=== PATIENT | female | born 1975 | race Caucasian/White ===

== ENCOUNTER 2016-06-07 22:45 | Inpatient (IN) | payer SELFPAY ==
[~2016-06-07] VITALS: Ht 167.6 cm; Wt 112.5 kg
--- NOTE | 2016-06-07 23:16 | PD ---
HPI Chief Complaint: lightheaded, weakness Time Seen by Provider: 23:16 Travel History International Travel<30 days: No Contact w/Intl Traveler<30days: No Traveled to known affect area: No History of Present Illness HPI 40-year-old female came to the emergency room by EMS for weakness, lightheadedness since yesterday. Patient is homeless and was found laying on the sidewalk by the police. Upon asking she mentioned about her complaints to him. The financial sales advisor called ambulance. Patient is not talking and writing on a piece of paper her answers when I asked a question. She says that she is doing this in order to give her voice rest. She says she has been feeling a pounding sensation in her chest as well. Her vital signs upon arrival were within normal limits. [facility] Past Medical History Narrative Medical List of her past medical, surgical, social and family history was reviewed from the nursing note. Social History Tobacco Use: Yes Allergies-Medications (Allergen,Severity, Reaction): Coded Allergies: No Known Allergies (Unverified , 06/07/16) Comments No known drug allergies. Reported Meds & Prescriptions Reported Meds & Active Scripts Active No Active Prescriptions or Reported Medications Narrative Medication List of her home medications reviewed from the nursing note. Review of Systems Except as stated in HPI: all other systems reviewed are Neg Physical Exam Narrative GENERAL: Awake, alert, extremely poor hygiene, disheveled SKIN: Focused skin assessment warm/dry. Extremely poor skin hygiene HEAD: Atraumatic. Normocephalic. EYES: Pupils equal and round. No scleral icterus. No injection or drainage. ENT: No nasal bleeding or discharge. Mucous membranes pink and moist. NECK: Trachea midline. No JVD. CARDIOVASCULAR: Regular rate and rhythm. No murmur appreciated. RESPIRATORY: No accessory muscle use. Clear to auscultation. Breath sounds equal bilaterally. GASTROINTESTINAL: Abdomen soft, non-tender, nondistended. Hepatic and splenic margins not palpable. MUSCULOSKELETAL: No obvious deformities. No clubbing. No cyanosis. No edema. NEUROLOGICAL: Awake and alert. No obvious cranial nerve deficits. Motor grossly within normal limits. Chooses to be non verbal. PSYCHIATRIC: Appropriate mood and affect; insight and judgment normal. Data Data Last Documented VS Vital Signs Date Time Temp Pulse Resp B/P Pulse Ox O2 Delivery O2 Flow Rate FiO2 06/08/16 04:19 81 15 128/79 95 Room Air 06/07/16 23:34 98.4 Orders Complete Blood Count With Diff (06/08/16 00:08) Basic Metabolic Panel (Bmp) (06/08/16 00:08) Urinalysis - C+S If Indicated (06/08/16 00:08) Troponin I (06/08/16 00:08) Electrocardiogram (06/08/16 ) Band Presser / Telemetry CHAPITO.Q8H (06/08/16 00:08) Sodium Chlorid 0.9% 500 Ml Inj (Ns 500 M (06/08/16 00:15) Orthostatic Vital Signs (06/08/16 00:08) Chest, Single Ap (06/08/16 ) Ct Brain W/O Iv Contrast(Rout) (06/08/16 ) Ct Pulmonary Angiogram (06/08/16 ) Iohexol 350 Inj (Omnipaque 350 Inj) (06/08/16 03:55) Heparin Infusion CHAPITO.Q1H (06/08/16 04:14) Heparin Inj (Heparin Inj) (06/08/16 04:15) Heparin Inj (Heparin Inj) (06/08/16 10:15) Heparin Inj (Heparin Inj) (06/08/16 10:15) Heparin-D5w Inj (Heparin-D5w Inj) (06/08/16 04:15) Act Partial Throm Time (Ptt) (06/08/16 04:14) Prothrombin Time / Inr (Pt) (06/08/16 04:14) Cbc No Diff, Includes Plts (06/08/16 04:14) Cbc No Diff, Includes Plts (06/11/16 06:00) Act Partial Throm Time (Ptt) (06/08/16 11:14) Admit Order (Ed Use Only) (06/08/16 04:40) Labs Laboratory Tests Test 06/08/16 06/08/16 06/08/16 00:50 01:38 03:20 Sodium Level 140 MEQ/L Potassium Level 4.2 MEQ/L Chloride Level 110 MEQ/L Carbon Dioxide Level 23.2 MEQ/L Anion Gap 7 MEQ/L Blood Urea Nitrogen 15 MG/DL Creatinine 0.88 MG/DL Estimat Glomerular Filtration 71 ML/MIN Rate Random Glucose 98 MG/DL Calcium Level 8.8 MG/DL Troponin I 0.93 NG/ML White Blood Count 13.2 TH/MM3 Red Blood Count 4.39 MIL/MM3 Hemoglobin 12.3 GM/DL Hematocrit 37.9 % Mean Corpuscular Volume 86.3 FL Mean Corpuscular Hemoglobin 28.1 PG Mean Corpuscular Hemoglobin 32.6 % Concent Red Cell Distribution Width 14.1 % Platelet Count 291 TH/MM3 Mean Platelet Volume 8.4 FL Neutrophils (%) (Auto) 64.9 % Lymphocytes (%) (Auto) 25.7 % Monocytes (%) (Auto) 4.7 % Eosinophils (%) (Auto) 3.9 % Basophils (%) (Auto) 0.8 % Neutrophils # (Auto) 8.5 TH/MM3 Lymphocytes # (Auto) 3.4 TH/MM3 Monocytes # (Auto) 0.6 TH/MM3 Eosinophils # (Auto) 0.5 TH/MM3 Basophils # (Auto) 0.1 TH/MM3 CBC Comment DIFF FINAL Differential Comment Prothrombin Time 10.3 SEC Prothromb Time International 0.9 RATIO Ratio Activated Partial 26.7 SEC Thromboplast Time MDM Medical Decision Making Medical Screen Exam Complete: Yes Emergency Medical Condition: Yes Medical Record Reviewed: Yes Interpretation(s) Twelve-lead EKG was reviewed by me. Normal sinus rhythm, normal axis, nonspecific ST-T wave changes. Heart rate is 83 bpm. Differential Diagnosis Dehydration, electrolyte abnormality, ACS Narrative Course 3 AM blood test results are back and shows elevated troponin. Patient never complained of any chest pain. I've asked for orthostatic vital signs and the nurse let me know that patient got tachypnea when she stood up. Chest x-rays within normal limits however. I've ordered a CAT scan of her head as well as a pulmonary angiogram to rule out PE. Awaiting for the CAT scan to be done and resulted. 4:[address] scan is back and is read as multiple bilateral PE with saddle embolus. Patient has been started on heparin bolus and drip. Head CT is within normal limit. Given these findings patient should be admitted to the ICU. Awaiting for the payment analyst to call back. Critical Care Narrative Aggregate critical care time was 60 minutes. Time to perform other separately billable procedures was not included in the critical care time. My time did not include minutes spent treating any other patients simultaneously or on activities that did not directly contribute to the patient's treatment. The services I provided to this patient were to treat and/or prevent clinically significant deterioration that could result in: Saddle PE, heparin bolus and drip I provided critical care services requiring my management, as noted below: Chart data review, documentation time, medication orders and management, vital sign assessments/reviewing monitor data, ordering and reviewing lab tests, ordering and interpreting/reviewing x-rays and diagnostic studies, care of the patient and discussion of the patient with the admitting physicians. Procedures EKG Prior to Arrival: No Diagnosis Primary Impression: Saddle embolus of pulmonary artery Qualified Code: I26.92 - Acute saddle pulmonary embolism without acute cor pulmonale Admitting Information Admitting Physician Requests: Admit Scripts No Active Prescriptions or Reported Meds Christopher Baca MD Jun 07, 2016 23:16
[2016-06-07 23:34] VITALS: BP 139/87; PULSE 90; RESP 15; TEMP 98.4; O2SAT 97
[2016-06-08] VITALS (15 sets, daily range): BP systolic 110–129; BP diastolic 55–81; PULSE 72–84; RESP 15–26; TEMP 98.2–98.6; O2SAT 92–99
[2016-06-08] MEDS ORDERED: SODIUM CHLORID 0.9% 500 ML INJ 500 ML IV ONE (00:15)
[2016-06-08 01:47] LABS: AUTOMATED NEUTROPHIL # 8.5 TH/MM3 (1.8-7.7); BASOPHIL # 0.1 TH/MM3 (0-0.2); BASOPHIL % 0.8 % (0.0-2.0); EOSINOPHIL # 0.5 TH/MM3 (0-0.4); EOSINOPHIL % 3.9 % (0.0-4.0); HEMATOCRIT 37.9 % (35.0-46.0); HEMO FLAGS DIFF FINAL; LYMPH % 25.7 % (9.0-44.0); LYMPHOCYTE # 3.4 TH/MM3 (1.0-4.8); MEAN CELL VOLUME 86.3 FL (80.0-100.0); MEAN CORPUSCULAR HEMOGLOBIN 28.1 PG (27.0-34.0); MEAN CORPUSCULAR HGB CONC 32.6 % (32.0-36.0); MONO % 4.7 % (0.0-8.0); NEUT % 64.9 % (16.0-70.0); PLATELET COUNT 291 TH/MM3 (150-450); RED BLOOD COUNT 4.39 MIL/MM3 (4.00-5.30); RED CELL DISTRIBUTION WIDTH 14.1 % (11.6-17.2); WHITE BLOOD COUNT 13.2 TH/MM3 (4.0-11.0)
[2016-06-08 01:54] LABS: BICARBONATE 23.2 MEQ/L (21.0-32.0)
[2016-06-08 01:55] LABS: POTASSIUM 4.2 MEQ/L (3.5-5.1)
--- NOTE | 2016-06-08 02:16 | RADRPT ---
EXAM DATE/TIME: 06/08/2016 02:04 [facility] COMPARISON: No previous studies available for comparison. INDICATIONS : Chest pain. MEDICAL HISTORY : None. SURGICAL HISTORY : None. ENCOUNTER: Initial ACUITY: 1 day PAIN SCORE: 0/10 LOCATION: Bilateral chest FINDINGS: A single view of the chest demonstrates the lungs to be symmetrically aerated without evidence of mas s, infiltrate or effusion. The cardiomediastinal contours are unremarkable. Osseous structures are intact. CONCLUSION: No acute disease. Loc Ram MD on June 08, 2016 at 2:14 Board Certified Radiologist. This report was verified electronically.
[2016-06-08] MEDS ORDERED: IOHEXOL 350 MG/ML 10 ML VIAL (for RAD DIAG) IV ONE (03:55)
--- NOTE | 2016-06-08 03:57 | RADRPT ---
EXAM DATE/TIME: 06/08/2016 03:31 [facility] COMPARISON: CHEST SINGLE AP, June 08, 2016, 2:04. INDICATIONS : Dizziness. RADIATION DOSE: 64.32 CTDIvol (mGy) MEDICAL HISTORY : None SURGICAL HISTORY : None. ENCOUNTER: Initial ACUITY: 1 day PAIN SCALE: 0/10 LOCATION: cranial TECHNIQUE: Multiple contiguous axial images were obtained of the head. Using automated exposure control and adj ustment of the mA and/or kV according to patient size, radiation dose was kept as low as reasonably a chievable to obtain optimal diagnostic quality images. FINDINGS: CEREBRUM: The ventricles are normal for age. No evidence of midline shift, mass lesion, hemorrhage or acute in farction. No extra-axial fluid collections are seen. POSTERIOR FOSSA: The cerebellum and brainstem are intact. The 4th ventricle is midline. The cerebellopontine angle i s unremarkable. EXTRACRANIAL: The visualized portion of the orbits is intact. SKULL: The calvaria is intact. No evidence of skull fracture. CONCLUSION: Normal examination for a patient of this age. Loc Ram MD on June 08, 2016 at 3:54 Board Certified Radiologist. This report was verified electronically.
--- NOTE | 2016-06-08 04:06 | RADRPT ---
EXAM DATE/TIME: 06/08/2016 03:35 [facility] COMPARISON: No previous studies available for comparison. INDICATIONS : Syncope. Evaluate for emboli. IV CONTRAST: 75 cc Omnipaque 350 (iohexol) IV RADIATION DOSE: 23.32 CTDIvol (mGy) MEDICAL HISTORY : None SURGICAL HISTORY : None. ENCOUNTER: Initial ACUITY: 1 day PAIN SCALE: 0/10 LOCATION: chest TECHNIQUE: Volumetric scanning of the chest was performed using a pulmonary embolism protocol MIP images were re constructed. Using automated exposure control and adjustment of the mA and/or kV according to patien t size, radiation dose was kept as low as reasonably achievable to obtain optimal diagnostic quality images. FINDINGS: PULMONARY ARTERIES: There are multiple filling defects in the pulmonary arteries bilaterally. There is also a prominent e mbolus at the bifurcation of the right and left pulmonary arteries characteristic for a saddle embolu s. LUNGS: There is no consolidation or pneumothorax . No concerning pulmonary nodule is visualized. PLEURAE: There is no pleural thickening or pleural effusion. MEDIASTINUM: There is good visualization of the great vessels of the middle mediastinum. No evidence of mediastin al or hilar adenopathy/mass. MUSCULOSKELETAL: Within normal limits for patient age. MISCELLANEOUS: The visualized upper abdominal organs demonstrate no acute abnormality. CONCLUSION: 1. Diffuse bilateral pulmonary emboli with a prominent saddle embolus at the bifurcation of the main right and left pulmonary arteries. 2. No acute pulmonary infiltrates. Loc Ram MD on June 08, 2016 at 4:01 Board Certified Radiologist. This report was verified electronically.
[2016-06-08] MEDS ORDERED: HEPARIN SODIUM - IV 10,000 UNITS/10 ML VIAL IV ONE (04:15)
[2016-06-08] MEDS: HEPARIN-D5W INJ 250 ML IV SCH ×2 (04:30→23:53)
[2016-06-08 04:53] LABS: APTT (PATIENT) 26.7 SEC (24.3-30.1); INTERNATIONAL NORMALIZED RATIO 0.9 RATIO; PROTHROMBIN TIME - PATIENT 10.3 SEC (9.8-11.6)
--- NOTE | 2016-06-08 05:11 | HHI.HP ---
HPI Service Critical Care Medicine Primary Care Physician Unknown Admission Diagnosis saddle PE Diagnosis: Chief Complaint: Chest pain, SOB Travel History International Travel<30 Days: No Contact w/Intl Traveler <30 Da: No Traveled to Known Affected Are: No History of Present Illness 40 y/o homeless woman found lying on sidewalk, complained to police of pounding in her chest. Brought to ED where CTA revealed saddle pulmonary embolus with RV dilation and elevated troponin, postural hypotension with dizziness. Thrombus has clearly effected cardiac output. Patient will not talk because she is resting her voice. She will nod her head and write notes. She denies any recent surgery or head injury. Review of Systems ROS Chest pain. SOB. Past Family Social History Allergies: Coded Allergies: No Known Allergies (Unverified , 06/07/16) Physical Exam Vital Signs Vital Signs Date Time Temp Pulse Resp B/P Pulse Ox O2 Delivery O2 Flow Rate FiO2 06/08/16 04:19 81 15 128/79 95 Room Air 06/08/16 01:29 81 17 127/65 87 15 121/76 91 25 118/63 06/07/16 23:43 90 15 97 Room Air 06/07/16 23:34 98.4 90 15 139/87 97 Physical Exam Disheveled woman with very poor hygiene and general foul odor. Head: Atraumatic. Neck: Supple, airway widely patent. Lungs: Clear, tachypnea present. No wheezes. Heart: RRR, JVD. Abdomen: Soft, nontender, no guarding. Extremities: Tepid, perfused. Neuro: Responds to questions with head nod. Moves 4 limbs to command Laboratory Laboratory Tests Test 06/08/16 06/08/16 06/08/16 00:50 01:38 03:20 Sodium Level 140 Potassium Level 4.2 Chloride Level 110 Carbon Dioxide Level 23.2 Anion Gap 7 Blood Urea Nitrogen 15 Creatinine 0.88 Estimat Glomerular Filtration 71 Rate Random Glucose 98 Calcium Level 8.8 Troponin I 0.93 White Blood Count 13.2 Red Blood Count 4.39 Hemoglobin 12.3 Hematocrit 37.9 Mean Corpuscular Volume 86.3 Mean Corpuscular Hemoglobin 28.1 Mean Corpuscular Hemoglobin 32.6 Concent Red Cell Distribution Width 14.1 Platelet Count 291 Mean Platelet Volume 8.4 Neutrophils (%) (Auto) 64.9 Lymphocytes (%) (Auto) 25.7 Monocytes (%) (Auto) 4.7 Eosinophils (%) (Auto) 3.9 Basophils (%) (Auto) 0.8 Neutrophils # (Auto) 8.5 Lymphocytes # (Auto) 3.4 Monocytes # (Auto) 0.6 Eosinophils # (Auto) 0.5 Basophils # (Auto) 0.1 CBC Comment DIFF FINAL Differential Comment Prothrombin Time 10.3 Prothromb Time International 0.9 Ratio Activated Partial 26.7 Thromboplast Time Result Diagram: 06/08/16 0138 06/08/16 0050 Assessment and Plan Assessment and Plan Assessment: 1. Submassive pulmonary embolism. RV dilation. 2. Poor hygiene. Plan: 1. Heparin infusion. 2. Cardiac ECHO. 3. Protonix. 4. No SCDs. 5. LE ultrasound 6. [facility] - Start heparin drip at no more than 1000 units/hr. tPA 50 mg iv. Heparin increased as necessary to keep PTT 50 -80 three hours after tPA injected. (If you can get informed consent). Overall impression: Critically ill with acute submassive pulmonary embolism and RV strain. Long-term prognosis is improved with 50 mg dose tPA if we can get consent. Critical care 48 mins Neri Ashraf MD Jun 08, 2016 05:11
[2016-06-08] MEDS ORDERED: CHLORHEXIDINE GLUCONATE 2 % 1 PACK (2 CLOTHS) TOP PRN (05:15)
[2016-06-08] MEDS ORDERED: RESP: ALBUTEROL 2.5 MG/IPRATROPIUM 0.5 MG NEB (PRN) INH (05:15)
[2016-06-08] MEDS ORDERED: ONDANSETRON HCL 4 MG/2 ML VIAL IV PRN (05:15)
[2016-06-08] MEDS ORDERED: ACETAMINOPHEN 325 MG TAB PO PRN (05:15)
[2016-06-08] MEDS ORDERED: MISCELLANEOUS NURSING INFORMATION XX SCH (05:15)
[2016-06-08 05:16] LABS: HEMATOCRIT 36.1 % (35.0-46.0); MEAN CELL VOLUME 85.3 FL (80.0-100.0); MEAN CORPUSCULAR HEMOGLOBIN 28.9 PG (27.0-34.0); MEAN CORPUSCULAR HGB CONC 33.9 % (32.0-36.0); PLATELET COUNT 281 TH/MM3 (150-450); RED BLOOD COUNT 4.23 MIL/MM3 (4.00-5.30); RED CELL DISTRIBUTION WIDTH 14.2 % (11.6-17.2); REVIEW FLAG FINAL
[2016-06-08] MEDS: SODIUM CHLOR 0.9% 1000 ML INJ 1,000 ML IV SCH ×3 (05:44→21:02)
[2016-06-08 09:00] LABS: BACTERIA, URINE MOD /hpf; BLOOD, URINE MOD (NEG); COMMENT (UR) CULTURE INDICATED; CULTURE IF INDICATED CULTURE INDICATED; GLUCOSE,URINE NEG (NEG); KETONE, URINE NEG (NEG); MUCUS URINE FEW /lpf (OCC); NITRITE,URINE NEG (NEG); SQUAMOUS EPITHELIAL CELL URINE 1 /hpf (0-5); URINE COLOR LIGHT-YELLOW (YELLW/STRAW)
[2016-06-08] MEDS: PANTOPRAZOLE SOD 40 MG DELAYED RELEASE TAB PO SCH (09:00)
[2016-06-08] MEDS: LACTULOSE SYRUP 20 GM/30 ML CUP PO SCH (09:00)
[2016-06-08] MEDS ORDERED: HEPARIN SODIUM - IV 10,000 UNITS/10 ML VIAL IV PRN ×2 (10:15)
--- NOTE | 2016-06-08 11:15 | HHI.CCPN ---
Subjective Remarks/Hospital Course 40 y/o homeless woman found lying on sidewalk, complained to police of pounding in her chest. Brought to ED where CTA revealed saddle pulmonary embolus with RV dilation and elevated troponin, postural hypotension with dizziness. Thrombus has clearly effected cardiac output. Patient will not talk because she is resting her voice. She will nod her head and write notes. She denies any recent surgery or head injury. Subjective 06/08: Extensive discussion with patient this morning. The advantages, risk and benefits of initiation of moderate dose TPA therapy was provided to the patient. Neuropsychologist Dr. Rosalio Jacinto was consulted for evaluation and assessment of cognitive abilities for the patient to understand medical status and risk and benefits of treatment. Upon evaluation by Dr. 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 Assessment also included the fact that the patient is alert and oriented and cognitively receptive to understand all questions and make full decisions regarding health care matters. TPA pamphlets, and publications were provided in written form to patient, additional discussions were provided to patient regarding evidenced base application of TPA was submassive PE and outcome studies regarding morbidity or mortality. The patient has decided to just continue with heparin protocol, and refuses/declines treatment of TPA therapy. Objective Vital Signs Date Time Temp Pulse Resp B/P Pulse Ox O2 Delivery O2 Flow Rate FiO2 06/08/16 08:18 92 Nasal Cannula 2.00 06/08/16 06:00 81 06/08/16 05:50 17 118/81 06/07/16 23:34 98.4 Result Diagram: 06/08/16 0514 06/08/16 0050 Objective Remarks Disheveled woman with very poor hygiene and general foul odor. Head: Atraumatic. Neck: Supple, airway widely patent. Lungs: Clear, tachypnea present. No wheezes. Heart: RRR, JVD. Abdomen: Soft, nontender, no guarding. Extremities: Tepid, perfused. Skin: Supple lesions inquiring peroneal and rectal area, resembling insect bites , possible scabies in multiple stages of healing Neuro: Responds to questions with head nod. Moves 4 limbs to command Urinary Catheter: No Vascular Central Line Catheter: No A/P Assessment and Plan Assessment: 1. Submassive pulmonary embolism. RV dilation. 2. Poor hygiene. Plan: 1. Heparin infusion. 2. Cardiac ECHO. 3. Protonix. 4. No SCDs. 5. LE ultrasound 6. Consider [facility] trial protocol , the patient has refused- Start heparin drip at no more than 1000 units/hr. tPA 50 mg iv. Heparin increased as necessary to keep PTT 50 -80 three hours after tPA injected. (If you can get informed consent ). Overall impression: Critically ill with acute submassive pulmonary embolism and RV strain. Continue heparin protocol This patient remains critically ill with one or more organ systems which are or may become a threat to life. I have spent in excess of 50 minutes discontinuously in the care and management of this patient. This time is exclusive of procedures, and includes, but is not limited to, evaluation of the patient, review of the medical record, discussions with family, consultants, nursing staff, or respiratory therapy, and documentation in the medical record. Physician Ana Ferris MD Jun 08, 2016 11:15
--- NOTE | 2016-06-08 11:28 | PD.HHIRCNE ---
Patient History Record/History Review Medical Information Review: Hx of present illness Reason for Referral: The patient is a 40 year old right handed female who was found on the sidewalk with complaints of chest pain, and was brought to ED where CTA revealed saddle pulmonary embolus with RV dilation and elevated troponin, postural hypotension with dizziness. Thrombus has clearly effected cardiac output. Her medical situation is placed within the context of her neurobehavioral presentation of elective mutism, where she refuses to speak in almost all social situations ( despite apparent normal ability to do so). Ms. Pan communicates quite effectively by writing down in a notebook answers to questions posed to her, and her answers are clear, concise and demonstrate understanding of the concepts and concerns presented to her. Also noteworthy is that Ms. Pan is homeless and has been so for quite some time. She is obviously educated based on her vocabulary and sentence structure, at least high school if not higher, is unemployed, probably at some time on SSDI, and is single without children. She was referred for baseline neurobehavioral status examination in order to assess her cognitive, behavioral and emotional functioning in light of her clinical presentation, and to facilitate an understanding of her cognitive capacity to make pertinent decisions about her healthcare, including decisions she may make to refuse treatments. Neuropsych Precautions: To be determined. Past Surgical/Medical History Past Surgery: No Major surgery in last 100 days: Unknown Hx of Neuro Prob: No Hx of Musculoskeletal Pro: No Hx of Cardiovascular Prob: No Hx of Respiratory Problem: No Hx Pelvic Problems: No Hx Genital Problems: Yes (WOUNDS ON LABIA) ?: Unknown Hx Autoimmune Disease: No Hx of Endocrine Problems: No Hx of Eye Probl: Yes (EYES SENSITIVE TO LIGHT, WEARS SUNGLASSES) Hx of Hearing or Ear Problems: No Hx Dental Problems: No Hx Blood Dyscrasias: No Hx of MDRO: No Hx of MRSA: No Hx of VRE: No Hx of CDIFF: No Hx of Tuberculosis: No Hx Chicken Pox: No If No, Have You Been Exposed W: No Hx of Body/Medical Devices: No Blood Transfusion History Will receive Blood /Blood prod: Yes Hx Blood Transfusions: No Medication Active Medications Acetaminophen (Tylenol) 650 mg Q6H PRN PO; Start 06/08/16 at 05:15 Chlorhexidine Gluconate (Chlorhexidine 2% Cloth) 3 pack UNSCH PRN TOP; Start at 05:15 Chlorhexidine Gluconate (Chlorhexidine 2% Cloth) 3 pack Taper DAILY@04 TOP; Start 06/09/16 at 04:00; Stop 06/05/17 at 03:59 Heparin Sodium (Porcine) (Heparin Inj) 5,000 units UNSCH PRN IV; Start at 10:15 Heparin Sodium (Porcine) (Heparin Inj) 6,000 units ONCE ONCE IV Last administered on 06/08/16 04:29; Admin Dose 6,000 UNITS; Start 06/08/16 at 04:15 ; Stop 06/08/16 at 04:16; Status DC Heparin Sodium (Porcine) 2500 units 2,500 units UNSCH PRN IV; Start 06/08/16 at 10:15 Heparin Sodium/ Dextrose 250 ml @ 0 mls/hr TITRATE IV Last administered on 04:30; Admin Dose 0 MLS/HR; Start 06/08/16 at 04:15 Iohexol (Omnipaque 350 Inj) 75 ml STK-MED ONCE IV Last administered on 03:55; Admin Dose 75 ML; Start 06/08/16 at 03:55; Stop 06/08/16 at 03:56; Status DC Lactulose (Lactulose Liq) 30 ml DAILY PO; Start 06/08/16 at 09:00 Miscellaneous Information 1 [id number] Last administered on 06/08/16 05:15; Admin Dose 1; Start 06/08/16 at 05:15 Ondansetron HCl (Zofran Inj) 4 mg Q6H PRN IV; Start 06/08/16 at 05:15 Pantoprazole Sodium (Protonix) 40 mg DAILY PO; Start 06/08/16 at 09:00 Sodium Chloride (NS 1000 ml Inj) 1,000 ml @ 125 mls/hr Q8H IV Last administered on 06/08/16 05:44; Admin Dose 125 MLS/HR; Start 06/08/16 at 05:02 Sodium Chloride (NS 500 ml Inj) 500 ml @ 500 mls/hr BOLUS ONCE IV Last administered on 06/08/16 01:13; Admin Dose 500 MLS/HR; Start 06/08/16 at 00:15 ; Stop 06/08/16 at 01:14; Status DC Mental Status Assessment Orientation: oriented to Self, oriented to Place, oriented to Time, oriented to Situation Mental Status: WFL: Thought processing, Attention, Learning/Memory, Problem- Solving, Impaired: Language/Interactions Observation Please note that this patient answered all questions presented to her by writing down her answers in a notebook. The patient is alert and oriented to person, place, time and circumstances surrounding the reason for hospitalization. In terms of attention skills, the patient was able to remain on task and remember basic and complex instructions. In terms of memory functioning, the patient was able to remember three of three words after a brief period of time. The patient did not initiate spontaneous verbal conversation, but she did readily respond in written format. Basic naming skills were intact in terms of her written identification of various objects presented to her. Language repetition skills in terms of writing down what was told to her were intact. The patients comprehensions for basic one- and two- stage commands were intact. Basic verbal abstraction and problem-solving skills were intact. The patient appears to posses adequate basic insight and awareness into their situation and within the limits of this brief evaluation, adequate basic judgment. Impression Apart from the elective mutism, this patient's neurocognitive status is essentially normal. Adjustment/Coping Assessment Adjustment/Coping: None: Depression, Anxiety, Pain, Awareness, Insight Observation The patients thought content was free from suicidal, homicidal or paranoid ideation, and the patients thought processes were logical and goal-directed. The patients mood was euthymic, and the affect was stable and appropriate. She specifically denied feelings of depression and anxiety. She was also specifically asked whether she felt suicidal or homicidal, and she reported that she did not. She appeared well motivated to complete this evaluation. LTG Status: Deferred STG Status: Deferred Team Members: Neuropsychologist Behavior Assessment Agitation: None Treatment Engagement: Average Observation The patient was evaluated in her hospital room in the [facility]. She was comfortably dressed in hospital gown and her grooming was reportedly improved from her initial admission where she was described as filthy and disheveled. She is of medium build and appears her stated age. Her ability to walk was not observed. She established rapport easily and appeared relaxed. She maintained good eye contact during the interview and evaluation, although she wore sunglasses because she said the sunlight streaming in the window was bothersome to her. Behaviorally, the patient demonstrated no signs of agitation, impulsivity or disinhibition. There was no remarkable evidence of a formal thought disorder or psychosis. Impression No evidence of psychosis, anxiety, depression, suicidal or homicidal ideation. LTG - Status: Deferred STG Status: Deferred Team Members: Neuropsychologist Diagnosis/Discharge Plan Impression This is a 40 year old woman who was found with a significant who is now hospitalized and requires anticoagulation treatment in order to maintain her health. Placed in context, this patient has been homeless for presumably many years, denies past psychiatric treatment, but who presents with elective mutism , where by she only communicates with writing. In order to differentiate, Elective mutism was defined as a refusal to speak in almost all social situations (despite normal ability to do so), while selective mutism is considered to be a failure to speak in specific situations and is strongly associated with social anxiety disorder. During this extended interview, Ms. Pan was clearly able to voice occasional words, although she denied being able to do so. Consequently, all questions asked of Ms. Pan by this examiner were answered by Ms. Pan through written expression. Neurobehavioral examination results reveal a woman of at least average intelligence based on her vocabulary and sentence structure, who is alert, oriented x 4, with normal attention, memory and complex reasoning skills, and who is free from florid psychotic symptoms and who denies suicidal or homicidal ideation or intent. She clearly was able to demonstrate understanding of the medical decisions being offered to her, ask appropriate questions of this examiner and her treating physician and she was clearly able to make decisions based on her understanding. 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 She likely has had psychiatric treatment in the past, but she chose not to report such treatment when asked. Diagnosis: (1) Elective mutism Status: Chronic (2) Paranoid schizophrenia, in remission Status: Chronic Maximizing acute care outcome The patient has chosen to treat her condition with Heparin, which she reported she feels comfortable undergoing, and not tPA, which she reported that she does not feel comfortable undergoing, despite being educated on the benefits of such treatment and the potential health risks and recovery issues for refusing such treatment. Based on today's neurobehavioral examination, this patient has no neurobehavioral or neurocognitive incapacitating findings. She is considered to be cognitively capable of making decisions of a legal, financial and medical nature. She demonstrates the requisite ability to appreciate a situation and its likely consequences and she demonstrates the ability to manipulate information rationally. Discharge Planning Anticipated Problems There are no anticipated neurobehavioral problems, although I will continue to follow this patient closely throughout her hospital stay to provide neuropsychological support. Treatment Plan This clinician will continue to follow with you throughout the course of this patients rehabilitation treatment. Discharge Needs To be determined. Thank you Thank you for the opportunity to assist in this patients care. Rosalio Jacinto, Ph.D., ABPP Board Certified in Clinical Neuropsychology [place] [employer] [place] Licensed Psychologist #[id number] Rosalio Jacinto PhD Jun 08, 2016 11:28 am
[2016-06-08 13:23] LABS: APTT (PATIENT) 52.5 SEC (24.3-30.1)
--- NOTE | 2016-06-08 13:27 | EC ---
Study Study Date:06/08/2016 STUDY CONCLUSIONS SUMMARY - Left ventricle: The cavity size was normal. Wall thickness was normal. Systolic function was normal. The estimated ejection fraction was in the range of 55% to 60%. Wall motion was normal; there were no regional wall motion abnormalities. - Aortic valve: Valve area: 2.34cm^2 (Vmax). - Right ventricle: The cavity size was mildly dilated. Wall thickness was normal. If LV function is below 40, please consider prescribing an ACEI or ARB or document rationale for non-use. PROCEDURE DATA STUDY STATUS: Elective. Procedure: Transthoracic echocardiography. Image quality was good. Scanning was performed from the parasternal, apical, and subcostal acoustic windows. Study completion: The patient tolerated the procedure well. Transthoracic echocardiography. M-mode, complete 2D, complete spectral Doppler, and color Doppler. Height: Height: 66in. Weight: Weight: 175.6lb. Body mass index: BMI: 28.4kg/m^2. Body surface area: BSA: 1.89m^2. Patient status: Inpatient. CARDIAC ANATOMY LEFT VENTRICLE: The cavity size was normal. Wall thickness was normal. Systolic function was normal. The estimated ejection fraction was in the range of 55% to 60%. Wall motion was normal; there were no regional wall motion abnormalities. AORTIC VALVE: Trileaflet; normal thickness leaflets. Doppler: Transvalvular velocity was within the normal range. There was no stenosis. No regurgitation. Valve area: 2.34cm^2 (Vmax). Indexed valve area: 1.24cm^2/m^2 (Vmax). Peak gradient: 11mm Hg (S). AORTA: Aortic root: The aortic root was normal in size. MITRAL VALVE: Structurally normal valve. Doppler: Transvalvular velocity was within the normal range. There was no evidence for stenosis. No regurgitation. Valve area by pressure half-time: 4.07cm^2. Indexed valve area by pressure half-time: 2.15cm^2/m^2. LEFT ATRIUM: The atrium was normal in size. RIGHT VENTRICLE: The cavity size was mildly dilated. Wall thickness was normal. PULMONIC VALVE: Doppler: Transvalvular velocity was within the normal range. There was no evidence for stenosis. No regurgitation. TRICUSPID VALVE: Structurally normal valve. Doppler: Transvalvular velocity was within the normal range. No regurgitation. Peak gradient: 25mm Hg (D). PULMONARY ARTERY: The main pulmonary artery was normal-sized. Systolic pressure was within the normal range. RIGHT ATRIUM: The atrium was normal in size. PERICARDIUM: There was no pericardial effusion. SYSTEMIC VEINS: Inferior vena cava: The vessel was normal in size. Patient weight: 175.6lb _Ejection fraction:_ 65-75% _Fractional shortening:_ 32% up to 5Kg 5-11.5Kg 11.6-22.9Kg 23-45Kg 45-57Kg Aortic Root 7-13 <17 13-22 17-27 17-27 LA diam 6-13 <23 24-38 33-47 37-40 RVID 10-17 7-15 7-15 7-18 8-17 LVIDd 12-22 <32 24-38 33-47 37-40 LVPW 2-4 3-6 5-7 6-8 7-8 IVS 2-4 3-6 5-7 6-8 7-8 BASIC MEASUREMENTS ADULT NORMAL Left ventricle LV internal dimension, ED, chordal *42.3 mm 43-52 level, PLAX LV internal dimension, ES, chordal 29.7 mm 23-38 level, PLAX Fractional shortening, chordal level, 30 % >29 PLAX LV posterior wall thickness, ED 10.1 mm IVS/LVPW ratio, ED 1.03 <1.3 Ventricular septum Septal thickness, ED 10.4 mm Aortic valve Leaflet separation 19 mm 15-26 Left atrium Anterior-posterior dimension 34 mm Anterior-posterior dimension index 1.8 cm/m^2 <2.2 Right ventricle RV internal dimension, ED, PLAX 27.6 mm 19-38 BASIC MEASUREMENTS ADULT NORMAL Aortic valve Leaflet separation 19 mm 15-26 Aorta Root diameter, ED 35 mm 20-37 DOPPLER MEASUREMENTS ADULT NORMAL Aortic valve Peak velocity, S 164 cm/s Peak gradient, S 11 mm Hg Valve area, Vmax 2.34 cm^2 Valve area index, Vmax 1.24 cm^2/m^2 Mitral valve Peak E-wave velocity 46.4 cm/s Peak A-wave velocity 65.6 cm/s Pressure half-time 54 ms Peak E/A ratio 0.7 Valve area, pressure half-time 4.07 cm^2 Valve area index, pressure half-time 2.15 cm^2/m^2 Tricuspid valve Peak gradient, D 25 mm Hg Maximal inflow velocity 252 cm/s Systemic veins Estimated CVP 10 mm Hg Pulmonic valve Peak velocity, S 105 cm/s LEGEND: Mean values are shown as u=mean value. Asterisk (*) calvo values outside specified normal range. Prepared and signed by Jamil Mcpherson [id number]
--- NOTE | 2016-06-08 15:16 | PD.ID.CON ---
History of Present Illness Service ID Consult Requested By Dr Woodard Reason for Consult suspected skin infection, rash Primary Care Physician Unknown Diagnoses: History of Present Illness 40 yo F with schitsophrenia, selecteive mutism, comunicates with writing, nodding and mouthing words She is homeless and sleepss outside She was admitted with resp distress and diagnosed with pulmonary embolism She was toted to have rash on her back, thighs and diper area Pt denies itching. No fever Apparently never received any treatment for it + admids to bug bites exposure Review of Systems ROS Limitations: Poor Historian Past Family Social History Allergies: Coded Allergies: No Known Allergies (Unverified , 06/07/16) Past Medical History schitsophrenia Past Surgical History not reported Active Ordered Medications Medications where reviewed in EMR Antibiotics Include: none Family History nknown Social History unknown Physical Exam Vital Signs Vital Signs Date Time Temp Pulse Resp B/P Pulse Ox O2 Delivery O2 Flow Rate FiO2 06/08/16 10:00 74 06/08/16 08:18 92 Nasal Cannula 2.00 06/08/16 08:00 82 06/08/16 08:00 98.2 75 16 118/69 96 06/08/16 07:00 95 Nasal Cannula 3.00 06/08/16 06:00 93 Nasal Cannula 4.00 06/08/16 06:00 81 06/08/16 05:50 84 17 118/81 95 Room Air 06/08/16 05:32 97 Nasal Cannula 2.00 06/08/16 04:19 81 15 128/79 95 Room Air 06/08/16 01:29 81 17 127/65 87 15 121/76 91 25 118/63 06/07/16 23:43 90 15 97 Room Air 06/07/16 23:34 98.4 90 15 139/87 97 Physical Exam GENERAL: This is a well-nourished, well-developed patient, in no apparent distress. SKIN: No rashes, ecchymoses or lesions. Cool and dry. HEAD: Atraumatic. Normocephalic. No temporal or scalp tenderness. EYES: Pupils equal round and reactive. Extraocular motions intact. No scleral icterus. No injection or drainage. ENT: Nose without bleeding, purulent drainage or septal hematoma. Throat without erythema, tonsillar hypertrophy or exudate. Uvula midline. Airway patent. NECK: Trachea midline. No JVD or lymphadenopathy. Supple, nontender, no meningeal signs. CARDIOVASCULAR: Regular rate and rhythm without murmurs, gallops, or rubs. RESPIRATORY: Clear to auscultation. Breath sounds equal bilaterally. No wheezes , rales, or rhonchi. GASTROINTESTINAL: Abdomen soft, non-tender, nondistended. No hepato-splenomegaly , or palpable masses. No guarding. MUSCULOSKELETAL: Extremities without clubbing, cyanosis, or edema. No joint tenderness, effusion, or edema noted. No calf tenderness. Negative Homans sign bilaterally. NEUROLOGICAL: Awake and alert. Cranial nerves II through XII intact. Motor and sensory grossly within normal limits. Five out of 5 muscle strength in all muscle groups. Normal speech.CONSTITUTIONAL/GENERAL: This is an obese female patient, in no apparent distress. Poor hygiene, + urine odor, desheveled TUBES/LINES/DRAINS: SKIN: No jaundice, Scattered lesions in different stages of healing mostly posterior thighs, buttocks, lower back and few under R breast Minor maceration in inguinal folds . Skin temperature appropriate. Not diaphoretic. HEAD: Atraumatic. Normocephalic. EYES: Pupils equal and round and reactive. Extraocular motions intact. No scleral icterus. No injection or drainage. Fundi not examined. ENT: Hearing grossly normal. Nose without bleeding or purulent drainage. oral mucosae moist, dentition is very poor NECK: Trachea midline. Supple, nontender. CARDIOVASCULAR: Regular rate and rhythm without murmurs, gallops, or rubs. Peripheral pulses symmetric. RESPIRATORY/CHEST: Symmetric, unlabored respirations. Clear to auscultation. Breath sounds equal bilaterally. No wheezes, rales, or rhonchi. GASTROINTESTINAL: Abdomen soft, non-tender, nondistended. No hepato-splenomegaly , or palpable masses. No guarding. Bowel sounds present. GENITOURINARY: Without palpable bladder distension. MUSCULOSKELETAL: Extremities without clubbing, cyanosis, or edema.No mottling or clubbing. LYMPHATICS: No palpable cervical or supraclavicular adenopathy. NEUROLOGICAL: Awake and alert. Motor and sensory grossly within normal limits. Follows commands. Mute, but noted to be able to mouth words. Understands speech Moves all extremities. PSYCHIATRIC: calm and mostly cooperative Laboratory Laboratory Tests Test 06/08/16 06/08/16 06/08/16 06/08/16 00:50 01:38 03:20 05:14 Sodium Level 140 Potassium Level 4.2 Chloride Level 110 Carbon Dioxide Level 23.2 Anion Gap 7 Blood Urea Nitrogen 15 Creatinine 0.88 Estimat Glomerular Filtration 71 Rate Random Glucose 98 Calcium Level 8.8 Troponin I 0.93 White Blood Count 13.2 12.0 Red Blood Count 4.39 4.23 Hemoglobin 12.3 12.2 Hematocrit 37.9 36.1 Mean Corpuscular Volume 86.3 85.3 Mean Corpuscular Hemoglobin 28.1 28.9 Mean Corpuscular Hemoglobin 32.6 33.9 Concent Red Cell Distribution Width 14.1 14.2 Platelet Count 291 281 Mean Platelet Volume 8.4 8.1 Neutrophils (%) (Auto) 64.9 Lymphocytes (%) (Auto) 25.7 Monocytes (%) (Auto) 4.7 Eosinophils (%) (Auto) 3.9 Basophils (%) (Auto) 0.8 Neutrophils # (Auto) 8.5 Lymphocytes # (Auto) 3.4 Monocytes # (Auto) 0.6 Eosinophils # (Auto) 0.5 Basophils # (Auto) 0.1 CBC Comment DIFF FINAL Differential Comment Prothrombin Time 10.3 Prothromb Time International 0.9 Ratio Activated Partial 26.7 Thromboplast Time Test 06/08/16 06/08/16 06/08/16 06:30 08:40 12:30 Nasal Screen MRSA (PCR) MRSA NOT DETECTED Urine Color LIGHT-YELLOW Urine Turbidity CLOUDY Urine pH 5.0 Urine Specific [place] 1.023 Urine Protein NEG Urine Glucose (UA) NEG Urine Ketones NEG Urine Occult Blood MOD Urine Nitrite NEG Urine Bilirubin NEG Urine Urobilinogen LESS THAN 2.0 Urine Leukocyte Esterase NEG Urine RBC 154 Urine WBC 11 Urine Squamous Epithelial 1 Cells Urine Amorphous Sediment FEW Urine Bacteria MOD Urine Mucus FEW Urine Yeast (Budding) FEW Microscopic Urinalysis Comment CULTURE INDICATED Activated Partial 52.5 Thromboplast Time Troponin I 0.96 Date/Time Procedure Status Source Growth 06/08/16 08:40 Urine Culture Received Urine Clean Catch Pending Result Diagram: 06/08/16 0514 06/08/16 0050 Imaging Last Impressions Head CT 06/08/16 0000 Signed Impressions: Service Date/Time: Wednesday, June 08, 2016 03:31 - CONCLUSION: Normal examination for a patient of this age. Loc Ram MD Chest X-Ray 06/08/16 0000 Signed Impressions: Service Date/Time: Wednesday, June 08, 2016 02:04 - CONCLUSION: No acute disease. Loc Ram MD CT Angiography 06/08/16 0000 Signed Impressions: Service Date/Time: Wednesday, June 08, 2016 03:35 - CONCLUSION: 1. Diffuse bilateral pulmonary emboli with a prominent saddle embolus at the bifurcation of the main right and left pulmonary arteries. 2. No acute pulmonary infiltrates. Loc Ram MD Assessment and Plan Assessment and Plan Admitted for pulmonary embolism Rash, nonpruritic, present on admission, suspected parasitic infection in a high risk pt -no actively infected lesions -likely heat rash vs bug bites or combination - doubt scabies 2/2 lack of pruritic component Mild fungal infection of diaper area - observe rash, if it is a heat rash or bug bites will resolved fast - if her rash persists/ worsens and/or pt noted to scratch the afected areas will Rx empirically for scabies (pt is not a reliable historian ) - Rx intriginous mild fungal infx with topical Rx Discussed Condition With Bethanie Wiggins RN, MD Jun 08, 2016 15:16
--- NOTE | 2016-06-08 20:10 | EKG ---
Date Performed: 06/08/2016 Time Performed: 01:58:43 PTAGE: 40 years EKG: Sinus rhythm NORMAL ECG NO PREVIOUS TRACING DOCTOR: Sary Oliver Interpretating Date/Time 06/08/2016 20:08:37
[2016-06-09] VITALS (13 sets, daily range): BP systolic 119–128; BP diastolic 67–74; PULSE 60–74; RESP 15–27; TEMP 97.8–100.2; O2SAT 95–100
[2016-06-09] MEDS: CHLORHEXIDINE GLUCONATE 2 % 1 PACK (2 CLOTHS) TOP SCH (04:00)
[2016-06-09] MEDS: SODIUM CHLOR 0.9% 1000 ML INJ 1,000 ML IV SCH ×2 (04:58→19:18)
[2016-06-09] MEDS: LACTULOSE SYRUP 20 GM/30 ML CUP PO SCH (09:00)
[2016-06-09] MEDS: PANTOPRAZOLE SOD 40 MG DELAYED RELEASE TAB PO SCH (09:00)
[2016-06-09 10:07] LABS: BICARBONATE 27.4 MEQ/L (21.0-32.0)
[2016-06-09 10:18] LABS: APTT (PATIENT) 235.5 SEC (24.3-30.1)
--- NOTE | 2016-06-09 11:00 | HHI.CCPN ---
Subjective Remarks/Hospital Course 40 y/o homeless woman found lying on sidewalk, complained to police of pounding in her chest. Brought to ED where CTA revealed saddle pulmonary embolus with RV dilation and elevated troponin, postural hypotension with dizziness. Thrombus has clearly effected cardiac output. Patient will not talk because she is resting her voice. She will nod her head and write notes. She denies any recent surgery or head injury. Subjective 06/08: Extensive discussion with patient this morning. The advantages, risk and benefits of initiation of moderate dose TPA therapy was provided to the patient. Neuropsychologist Dr. Rosalio Jacinto was consulted for evaluation and assessment of cognitive abilities for the patient to understand medical status and risk and benefits of treatment. Upon evaluation by Dr. 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 Assessment also included the fact that the patient is alert and oriented and cognitively receptive to understand all questions and make full decisions regarding health care matters. TPA pamphlets, and publications were provided in written form to patient, additional discussions were provided to patient regarding evidenced base application of TPA was submassive PE and outcome studies regarding morbidity or mortality. The patient has decided to just continue with heparin protocol, and refuses/declines treatment of TPA therapy. 06/09: Afebrile. The patient continues to wear sunglasses and continues to be nonverbal communicating only in writing .Overnight the patient was refusing to have PTT drawn on heparin PE protocol. This a.m. extensive discussion with patient, revealed patient demanding overlock waistline joiner's insert/pamphlet on heparin evidence-based literature on treatment for pulmonary embolus utilizing a heparin protocol. Dr. Jacinto neuropsychologist notified. Extensive discussion with patient by Dr. Jacinto, and provision of all materials as requested by patient were provided. Patient now agrees to allow us to treat her for her pulmonary embolus following the heparin protocol which requires serial PTT lab values for optimization of treatment. Objective Vital Signs Date Time Temp Pulse Resp B/P Pulse Ox O2 Delivery O2 Flow Rate FiO2 06/09/16 08:33 97 Nasal Cannula 2.00 06/09/16 08:00 60 06/09/16 08:00 98.4 15 06/09/16 04:00 119/67 Intake and Output 06/08/16 06/08/16 06/09/16 08:00 16:00 00:00 Intake Total 804 ml 462 ml Output Total 251 ml Balance -251 ml 804 ml 462 ml Result Diagram: 06/08/16 0514 06/09/16 0900 Objective Remarks BP 118/78 P 95 RR 19 100% O2 sat Gen: Well-developed female, wearing sunglasses (unable to assess pupillary response), nodding head to questions or riding in no Head: Atraumatic. Neck: Supple, airway widely patent. Lungs: Clear, tachypnea present. No wheezes. Heart: RRR, JVD. Abdomen: Soft, nontender, no guarding. Extremities: Tepid, perfused. Skin: Supple lesions inquiring peroneal and rectal area, resembling insect bites , in multiple stages of healing Neuro: Responds to questions with head nod. Moves 4 limbs to command. Nonverbal secondary to elective mutism/schizophrenia A/P Assessment and Plan Assessment: 1. Submassive pulmonary embolism. RV dilation. 2. Poor hygiene/homeless Plan by systems: Neurologic: Elective mutism Schizophrenia Neurochecks per ICU protocol Neuropsychology-Dr. Jacinto following Patient is nonverbal communicates only by nodding of head, or writing Respiratory: Submassive PE Maintain O2 sat greater than 92%, patient currently on O2 at 2 L/m Patient continues on heparin PE protocol Maintaining strict bed rest following PTT every 6 hours Cardiovascular: RV dilation secondary to submassive PE Troponin downtrending 0.93-> 0.96-> 0.24 Normal sinus rhythm continue to monitor 06/08 ECHO EF 5560 percent, no RWMA, RV dilation Renal: No Wiseman -- Strict I/Os FEN/GI: DC normal saline at 125cc /hr Monitor BMP Heart healthy diet Zofran for nausea Heme/ID: Infectious disease consulted- Dr. Vidal 2/2 perineal and rectal lesions. Follow-up recommendations Monitor CBC Obtain cultures if indicated Endocrine: Glucose monitoring per ICU protocol -- SSI Prophylaxis: GI Prophylaxis Patient does not meet criteria for GI prophylaxis, discontinue Protonix DVT Prophylaxis No SCDs Heparin infusion Lines: Peripheral IVs 2. Dispo: The patient continues to be resistant to air piece/treatments for treatment of submassive PE. Neuropsychology is following providing support. Discussed with patient, Dr. Jacinto, TRAVEL AGENCY MANAGER at bedside Level 3 Physician Ana Ferris MD Jun 09, 2016 11:00
[2016-06-09 11:12] LABS: APTT (PATIENT) 37.9 SEC (24.3-30.1)
--- NOTE | 2016-06-09 11:36 | HHI.PR ---
Neuropsych Behavior Behavior: Intact: Suicidal/Homicidal Risk, Moderate: Cooperative w/ Treatment , Motivation Psychosocial Psychosocial: Moderate: Self-Esteem/Confidence, Severe: Psychosocial, Family/ Other Adjustment, Realistic Expectation Progress Notes/Response to Tx Time with Patient: 45 minutes Premorbid psychological status Premorbid Cognitive, Emotional and Behavioral Status: Tenuous. The patient has chronic schizophrenia and is elective mute. She has no family, and has been chronically homeless. Substance abuse history includes tobacco dependence. Behavioral Reactions of Patient and Family/Support System: Unstable. The patient is homeless and has no family. Emotional/Behavioral Status of Patient and Family/Support System: Unstable. Pertinent issues, if appropriate to this patients clinical care, are described in detail above. Maximizing acute care outcome It is recommended that the patient be monitored for emergent behavioral issues throughout her hospital stay, for which I will follow daily and closely to facilitate an optimal medical outcome. Anticipated Problems Ongoing areas of concern will include behavioral refusal, lack of insight and judgment, which will likely be an ongoing struggle throughout her stay. Treatment Plan This clinician will continue to follow with you throughout the course of this patients acute care treatment, The goals of neuropsychological intervention shall be both educational and supportive as is deemed clinically appropriate as well as to facilitate compliance. Impression This is a 40 year old woman who was found with a significant who is now hospitalized and requires anticoagulation treatment in order to maintain her health. Placed in context, this patient has been homeless for presumably many years, denies past psychiatric treatment, but who presents with elective mutism , where by she only communicates with writing. In order to differentiate, Elective mutism was defined as a refusal to speak in almost all social situations (despite normal ability to do so), while selective mutism is considered to be a failure to speak in specific situations and is strongly associated with social anxiety disorder. During this extended interview, Ms. Pan was clearly able to voice occasional words, although she denied being able to do so. Consequently, all questions asked of Ms. Pan by this examiner were answered by Ms. Pan through written expression. Neurobehavioral examination results reveal a woman of at least average intelligence based on her vocabulary and sentence structure, who is alert, oriented x 4, with normal attention, memory and complex reasoning skills, and who is free from florid psychotic symptoms and who denies suicidal or homicidal ideation or intent. She clearly was able to demonstrate understanding of the medical decisions being offered to her, ask appropriate questions of this examiner and her treating physician and she was clearly able to make decisions based on her understanding. 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 She likely has had psychiatric treatment in the past, but she chose not to report such treatment when asked. Diagnosis: (1) Elective mutism Status: Chronic (2) Paranoid schizophrenia, in remission Status: Chronic Progress Note Narrative Ongoing follow-up of this patient as requested by Dr. Woodard. Issue today was her refusal to allow serial blood draws to monitor Heparin therapy. With much effort, we were able to obtain compliance, and patient is now in agreement with the plan now that she has further understanding of the issues involved. I will continue to follow closely. Rosalio Jacinto PhD Jun 09, 2016 11:36 am
[2016-06-09 19:05] LABS: APTT (PATIENT) 40.5 SEC (24.3-30.1)
[2016-06-09] MEDS: HEPARIN-D5W INJ 250 ML IV SCH (19:48)
[2016-06-10] VITALS (12 sets, daily range): BP systolic 98–115; BP diastolic 55–68; PULSE 58–68; RESP 17–23; TEMP 98.3–99; O2SAT 97–100
[2016-06-10 01:18] LABS: APTT (PATIENT) 40.7 SEC (24.3-30.1)
[2016-06-10] MEDS: CHLORHEXIDINE GLUCONATE 2 % 1 PACK (2 CLOTHS) TOP SCH ×2 (04:00→22:56)
[2016-06-10 05:29] LABS: HEMATOCRIT 36.3 % (35.0-46.0); MEAN CELL VOLUME 85.9 FL (80.0-100.0); MEAN CORPUSCULAR HEMOGLOBIN 28.3 PG (27.0-34.0); PLATELET COUNT 295 TH/MM3 (150-450); RED BLOOD COUNT 4.22 MIL/MM3 (4.00-5.30); RED CELL DISTRIBUTION WIDTH 14.3 % (11.6-17.2); REVIEW FLAG FINAL
[2016-06-10 05:56] LABS: BICARBONATE 27.4 MEQ/L (21.0-32.0); MAGNESIUM 1.9 MG/DL (1.5-2.5); POTASSIUM 4.5 MEQ/L (3.5-5.1)
[2016-06-10 08:07] LABS: APTT (PATIENT) 42.3 SEC (24.3-30.1)
[2016-06-10] MEDS: LACTULOSE SYRUP 20 GM/30 ML CUP PO SCH (08:13)
--- NOTE | 2016-06-10 10:03 | HHI.PR ---
Neuropsych Cognitive Cognitive: Mild: Judgement/Problem-Solving, Severe: Insight/Awareness Psychosocial Psychosocial: Severe: Psychosocial, Family/Other Adjustment, Realistic Expectation, Unable to Asses: Self-Esteem/Confidence Progress Notes/Response to Tx Contents of Sessions: Adjustment Time with Patient: 45 minutes Premorbid psychological status Premorbid Cognitive, Emotional and Behavioral Status: Tenuous. The patient has chronic schizophrenia and is elective mute. She has no family, and has been chronically homeless. Substance abuse history includes tobacco dependence. Behavioral Reactions of Patient and Family/Support System: Unstable. The patient is homeless and has no family. Emotional/Behavioral Status of Patient and Family/Support System: Unstable. Pertinent issues, if appropriate to this patients clinical care, are described in detail above. Maximizing acute care outcome It is recommended that the patient be monitored for emergent behavioral issues throughout her hospital stay, for which I will follow daily and closely to facilitate an optimal medical outcome. Anticipated Problems Ongoing areas of concern will include behavioral refusal, lack of insight and judgment, which will likely be an ongoing struggle throughout her stay. Treatment Plan This clinician will continue to follow with you throughout the course of this patients acute care treatment, The goals of neuropsychological intervention shall be both educational and supportive as is deemed clinically appropriate as well as to facilitate compliance. Impression This is a 40 year old woman who was found with a significant who is now hospitalized and requires anticoagulation treatment in order to maintain her health. Placed in context, this patient has been homeless for presumably many years, denies past psychiatric treatment, but who presents with elective mutism , where by she only communicates with writing. In order to differentiate, Elective mutism was defined as a refusal to speak in almost all social situations (despite normal ability to do so), while selective mutism is considered to be a failure to speak in specific situations and is strongly associated with social anxiety disorder. During this extended interview, Ms. Pan was clearly able to voice occasional words, although she denied being able to do so. Consequently, all questions asked of Ms. Pan by this examiner were answered by Ms. Pan through written expression. Neurobehavioral examination results reveal a woman of at least average intelligence based on her vocabulary and sentence structure, who is alert, oriented x 4, with normal attention, memory and complex reasoning skills, and who is free from florid psychotic symptoms and who denies suicidal or homicidal ideation or intent. She clearly was able to demonstrate understanding of the medical decisions being offered to her, ask appropriate questions of this examiner and her treating physician and she was clearly able to make decisions based on her understanding. 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 She likely has had psychiatric treatment in the past, but she chose not to report such treatment when asked. Diagnosis: (1) Elective mutism Status: Chronic (2) Paranoid schizophrenia, in remission Status: Chronic Progress Note Narrative Ongoing follow-up of patient seen bedside. This patient has been compliant with blood draws and blood pressure readings over night, and remains in good moods this morning. No additional issues presenting, although I will continue to follow closely, with stops throughout the day to ensure ongoing compliance with medical directives. Rosalio Jacinto PhD Jun 10, 2016 10:02 am
[2016-06-10] MEDS: HEPARIN-D5W INJ 250 ML IV SCH (11:42)
--- NOTE | 2016-06-10 15:05 | HHI.CCPN ---
Subjective Remarks/Hospital Course 40 y/o homeless woman found lying on sidewalk, complained to police of pounding in her chest. Brought to ED where CTA revealed saddle pulmonary embolus with RV dilation and elevated troponin, postural hypotension with dizziness. Thrombus has clearly effected cardiac output. Patient will not talk because she is resting her voice. She will nod her head and write notes. She denies any recent surgery or head injury. Subjective 06/08: Extensive discussion with patient this morning. The advantages, risk and benefits of initiation of moderate dose TPA therapy was provided to the patient. Neuropsychologist Dr. Rosalio Jacinto was consulted for evaluation and assessment of cognitive abilities for the patient to understand medical status and risk and benefits of treatment. Upon evaluation by Dr. 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 Assessment also included the fact that the patient is alert and oriented and cognitively receptive to understand all questions and make full decisions regarding health care matters. TPA pamphlets, and publications were provided in written form to patient, additional discussions were provided to patient regarding evidenced base application of TPA was submassive PE and outcome studies regarding morbidity or mortality. The patient has decided to just continue with heparin protocol, and refuses/declines treatment of TPA therapy. 06/09: Afebrile. The patient continues to wear sunglasses and continues to be nonverbal communicating only in writing .Overnight the patient was refusing to have PTT drawn on heparin PE protocol. This a.m. extensive discussion with patient, revealed patient demanding paste thinner's insert/pamphlet on heparin evidence-based literature on treatment for pulmonary embolus utilizing a heparin protocol. Dr. Jacinto neuropsychologist notified. Extensive discussion with patient by Dr. Jacinto, and provision of all materials as requested by patient were provided. Patient now agrees to allow us to treat her for her pulmonary embolus following the heparin protocol which requires serial PTT lab values for optimization of treatment. 06/10: No acute events overnight. Patient more compliant with treatment with discussion from Dr. Jacinto. Patient remains therapeutic on heparin. Urine culture resulted Klebsiella pneumoniae, the patient was placed on Rocephin 2 g for 5 days. Objective Vital Signs Date Time Temp Pulse Resp B/P Pulse Ox O2 Delivery O2 Flow Rate FiO2 06/10/16 14:00 62 06/10/16 13:22 99 Nasal Cannula 2.00 06/10/16 12:00 98.6 22 115/57 Intake and Output 06/09/16 06/09/16 06/10/16 08:00 16:00 00:00 Intake Total 1018 ml 1835 ml 832 ml Balance 1018 ml 1835 ml 832 ml Result Diagram: 06/10/16 0430 06/10/16 0430 Other Results Microbiology Date/Time Procedure Status Source Growth 06/08/16 08:40 Urine Culture - Final Complete Urine Clean Catch Klebsiella Pneumoniae Objective Remarks BP 118/78 P 95 RR 19 100% O2 sat Gen: Well-developed female, wearing sunglasses (unable to assess pupillary response), nodding head to questions or riding in no Head: Atraumatic. Neck: Supple, airway widely patent. Lungs: Clear, tachypnea present. No wheezes. Heart: RRR, JVD. Abdomen: Soft, nontender, no guarding. Extremities: Tepid, perfused. Skin: Supple lesions inquiring peroneal and rectal area, resembling insect bites , in multiple stages of healing Neuro: Responds to questions with head nod. Moves 4 limbs to command. Nonverbal secondary to elective mutism/schizophrenia A/P Assessment and Plan Assessment: 1. Submassive pulmonary embolism. RV dilation. 2. Poor hygiene/homeless Neurologic: Elective mutism Schizophrenia Neurochecks per ICU protocol Neuropsychology-Dr. Jacinto following Patient is nonverbal communicates only by nodding of head, or writing Respiratory: Submassive PE Maintain O2 sat greater than 92%, patient currently on O2 at 2 L/m Patient continues on heparin PE protocol-currently PTT therapeutic or last 24 hours Cardiovascular: RV dilation secondary to submassive PE Troponin downtrending Normal sinus rhythm continue to monitor 06/08 ECHO EF 5560 percent, no RWMA, RV dilation Renal: UTIKlebsiella pneumoniae No Wiseman 06/10 Rocephin 2 g every 24 hours 5 days -- Strict I/Os FEN/GI: Monitor BMP Heart healthy diet Zofran for nausea Heme/ID: Infectious disease consulted- Dr. Vidal / perineal and rectal lesions. Follow-up recommendations Monitor CBC Obtain cultures if indicated Endocrine: Glucose monitoring per ICU protocol -- SSI Prophylaxis: GI Prophylaxis Patient does not meet criteria for GI prophylaxis. DVT Prophylaxis No SCDs Heparin infusion Lines: Peripheral IVs 2. Dispo: Thus with G[employer] BRA[employer]IER at bedside. Planned transfer to [facility] in a.m.. Level 2 Physician Ana Ferris MD Jun 10, 2016 15:05
[2016-06-10] MEDS: cefTRIAXone INJ 2,000 MG in SODIUM CHLORIDE 0.9% INJ 100 ML IV SCH (15:40)
[2016-06-10] MEDS ORDERED: NITROFURANTOIN MONOHYD MACROCR 100 MG CAP PO SCH (18:00)
[2016-06-10] MEDS: SODIUM CHLOR 0.9% 1000 ML INJ 1,000 ML IV SCH (19:18)
[2016-06-11] VITALS: BP 109/68; PULSE 59; RESP 17; TEMP 98.3; O2SAT 97
[2016-06-11] MEDS: HEPARIN-D5W INJ 250 ML IV SCH ×2 (03:55→22:02)
[2016-06-11 07:29] LABS: HEMATOCRIT 42.9 % (35.0-46.0); MEAN CELL VOLUME 87.3 FL (80.0-100.0); MEAN CORPUSCULAR HEMOGLOBIN 27.7 PG (27.0-34.0); MEAN CORPUSCULAR HGB CONC 31.7 % (32.0-36.0); PLATELET COUNT 321 TH/MM3 (150-450); RED BLOOD COUNT 4.91 MIL/MM3 (4.00-5.30); RED CELL DISTRIBUTION WIDTH 14.1 % (11.6-17.2); REVIEW FLAG FINAL; WHITE BLOOD COUNT 11.1 TH/MM3 (4.0-11.0)
[2016-06-11] MEDS: LACTULOSE SYRUP 20 GM/30 ML CUP PO SCH (07:45)
[2016-06-11 08:00] LABS: APTT (PATIENT) 39.6 SEC (24.3-30.1)
[2016-06-11 08:01] VITALS: BP 102/62; PULSE 58; RESP 16; TEMP 96.6; O2SAT 100
--- NOTE | 2016-06-11 09:55 | RADRPT ---
EXAM DATE/TIME: 06/11/2016 08:14 [place] COMPARISON: No previous studies available for comparison. INDICATIONS : Bilateral leg pain and swelling. MEDICAL HISTORY : Leg pain and swelling. SURGICAL HISTORY : None. ENCOUNTER: Initial ACUITY: 3 days PAIN SCORE: 6/10 LOCATION: Bilateral legs. TECHNIQUE: Venous ultrasound of the left and right leg was performed from the inguinal ligament to the proximal calf. Real-time, color Doppler and spectral tracing, compression and augmentation techniques were us ed. FINDINGS: Common femoral, femoral, popliteal and peroneal veins are patent. There is nonocclusive thrombus in t he posterior tibial vein. Iliac vein is patent. CONCLUSION: 1. Nonocclusive thrombus in the posterior tibial vein otherwise patent system. Dax Nagel MD on June 11, 2016 at 9:53 Board Certified Radiologist. This report was verified electronically.
--- NOTE | 2016-06-11 09:56 | HHI.PR ---
Subjective Remarks f/u for acute respiratory failure patient stated breathing is the same and she stills feels short of breath. no other complaints. Denied any CP. she writes this is her journal. Objective Vitals Vital Signs Date Time Temp Pulse Resp B/P Pulse Ox O2 Delivery O2 Flow Rate FiO2 06/11/16 08:01 96.6 58 16 102/62 100 06/11/16 07:20 Nasal Cannula 3.00 06/11/16 00:00 98.3 59 17 109/68 97 06/10/16 19:45 Nasal Cannula 3.00 06/10/16 19:00 98.3 59 17 109/68 97 06/10/16 19:00 100 Nasal Cannula 3.00 06/10/16 18:00 61 06/10/16 16:00 98.3 62 23 98/55 98 06/10/16 16:00 62 06/10/16 14:00 62 06/10/16 13:22 99 Nasal Cannula 2.00 06/10/16 12:00 98.6 62 22 115/57 99 06/10/16 12:00 62 06/10/16 10:00 64 I/O 06/10/16 06/10/16 06/10/16 06/11/16 06/11/16 06/11/16 07:00 15:00 23:00 07:00 15:00 23:00 Intake Total 424 ml 722 ml 220 ml 541 ml Balance 424 ml 722 ml 220 ml 541 ml Intake Oral 300 ml 600 ml 400 ml IV Total 124 ml 122 ml 220 ml 141 ml # Voids 4 3 4 # Bowel Movements 1 0 0 Result Diagram: 06/11/16 0705 06/10/16 0430 Objective Remarks GENERAL: in NAD with an distinct odor. CARDIOVASCULAR: Regular rate and rhythm without murmurs, gallops, or rubs. RESPIRATORY: Breath sounds equal bilaterally. No accessory muscle use. GASTROINTESTINAL: Abdomen soft, non-tender, nondistended. MUSCULOSKELETAL: No cyanosis, or edema. BACK: Nontender without obvious deformity. No CVA tenderness. Medications and IVs Current Medications Sodium Chloride (NS 500 ml Inj) 500 ml @ 500 mls/hr BOLUS ONCE IV Last administered on 06/08/16t 01:13; Start 06/08/16 at 00:15; Stop 06/08/16 at 01:14 ; Status DC Iohexol (Omnipaque 350 Inj) 75 ml STK-MED ONCE IV Last administered on 03:55; Start 06/08/16 at 03:55; Stop 06/08/16 at 03:56; Status DC Heparin Sodium (Porcine) (Heparin Inj) 6,000 units ONCE ONCE IV Last administered on 06/08/16 04:29; Start 06/08/16 at 04:15; Stop 06/08/16 at 04:16 ; Status DC Heparin Sodium (Porcine) (Heparin Inj) 5,000 units UNSCH PRN IV APTT LESS THAN 25; Start 06/08/16 at 10:15 Heparin Sodium (Porcine) 2500 units 2,500 units UNSCH PRN IV APTT 25 TO 39; Start 06/08/16 at 10:15 Heparin Sodium/ Dextrose 250 ml @ 0 mls/hr TITRATE IV Last administered on 06/11 03:55; Start 06/08/16 at 04:15 Sodium Chloride (NS 1000 ml Inj) 1,000 ml @ 30 mls/hr Q24H IV Last administered on 06/08/16 13:30; Start 06/08/16 at 05:02 Acetaminophen (Tylenol) 650 mg Q6H PRN PO PAIN 1-10 AND/OR FEVER >101F; Start 06/08/16 at 05:15 Pantoprazole Sodium (Protonix) 40 mg DAILY PO ; Start 06/08/16 at 09:00; Stop at 11:03; Status DC Ondansetron HCl (Zofran Inj) 4 mg Q6H PRN IV NAUSEA OR VOMITING; Start at 05:15 Lactulose (Lactulose Liq) 30 ml DAILY PO ; Start 06/08/16 at 09:00 Albuterol/ Ipratropium (Duoneb Neb) 1 ampule Q4HR NEB PRN INH WHEEZING Last administered on 06/08/16 05:28; Start 06/08/16 at 05:15 Miscellaneous Information 1 [id number] Last administered on 06/08/16 05:15; Start 06/08/16 at 05:15 Chlorhexidine Gluconate (Chlorhexidine 2% Cloth) 3 pack Taper DAILY@04 TOP Last administered on 4/27/17at 04:00; Start 06/09/16 at 04:00; Stop 06/05/17 at 03:59 Chlorhexidine Gluconate (Chlorhexidine 2% Cloth) 3 pack UNSCH PRN TOP HYGIENIC CARE; Start 06/08/16 at 05:15 Nitrofurantoin Macrocrystals 100 mg 100 mg BIDPC PO ; Start 06/10/16 at 18:00; Stop 06/10/16 at 18:00; Status DC Ceftriaxone Sodium/Sodium Chloride (Rocephin Inj/NS Inj) 100 ml @ 200 mls/hr Q24H IV Last administered on 06/10/16t 15:40; Start 06/10/16 at 15:00; Stop 06/17/16 at 15:00 A/P Assessment and Plan Acute respiratory failure -due to Submassive PE -see treatment as above. Submassive pulmonary embolism. RV dilation -Maintain O2 sat greater than 92%, patient currently on O2 at 2 L/m - on heparin PE protocol-currently PTT therapeutic or last 24 hours -continue with heparin until improvement then will need to switch to PO. patient is homeless so limited funding. -I will place consult for case management to assist with this. Elective mutism/Schizophrenia -stable. -Neuropsychology-Dr. Jacinto following -Patient is nonverbal communicates only by nodding of head, or writing RV dilation secondary to submassive PE -Troponin downtrending and symptomatically improving. -Normal sinus rhythm continue to monitor -06/08 ECHO EF 5560 percent, no RWMA, RV dilation UTIKlebsiella pneumoniae -No Wiseman -06/10 Rocephin 2 g every 24 hours 5 days -Strict I/Os Homeless/Poor hygiene -case management to assist. DVT prophylaxis -on lovenox Discharge Planning patient is homeless. She will require hospitalization until off of oxygen. also case management consulted to assist with anticoagulation. Priscilla Velasquez MD Jun 11, 2016 09:56
[2016-06-11 12:10] VITALS: BP 118/70; PULSE 60; RESP 16; TEMP 97.4; O2SAT 97
[2016-06-11] MEDS: cefTRIAXone INJ 2,000 MG in SODIUM CHLORIDE 0.9% INJ 100 ML IV SCH (15:19)
[2016-06-11 16:25] VITALS: BP 129/76; PULSE 68; RESP 17; TEMP 97.3; O2SAT 99
[2016-06-11] MEDS: SODIUM CHLOR 0.9% 1000 ML INJ 1,000 ML IV SCH (19:18)
[2016-06-11 20:00] VITALS: BP 110/70; PULSE 68; RESP 18; TEMP 97.3; O2SAT 99
[2016-06-12] VITALS (8 sets, daily range): BP systolic 102–121; BP diastolic 55–74; PULSE 59–68; RESP 17–18; TEMP 96–97.6; O2SAT 96–99
[2016-06-12] MEDS: CHLORHEXIDINE GLUCONATE 2 % 1 PACK (2 CLOTHS) TOP SCH ×2 (03:46→19:57)
[2016-06-12 05:47] LABS: HEMATOCRIT 39.8 % (35.0-46.0); MEAN CELL VOLUME 85.5 FL (80.0-100.0); MEAN CORPUSCULAR HEMOGLOBIN 29.2 PG (27.0-34.0); MEAN CORPUSCULAR HGB CONC 34.2 % (32.0-36.0); PLATELET COUNT 336 TH/MM3 (150-450); RED BLOOD COUNT 4.66 MIL/MM3 (4.00-5.30); RED CELL DISTRIBUTION WIDTH 14.2 % (11.6-17.2); REVIEW FLAG FINAL
[2016-06-12 06:18] LABS: BICARBONATE 29.5 MEQ/L (21.0-32.0); POTASSIUM 5.1 MEQ/L (3.5-5.1)
[2016-06-12] MEDS: LACTULOSE SYRUP 20 GM/30 ML CUP PO SCH (09:00)
[2016-06-12 12:14] LABS: APTT (PATIENT) 38.6 SEC (24.3-30.1)
--- NOTE | 2016-06-12 12:38 | HHI.PR ---
Subjective Remarks Patient is non verbal communicates through signs or in writing signals breathing is good I Objective Vitals Vital Signs Date Time Temp Pulse Resp B/P Pulse Ox O2 Delivery O2 Flow Rate FiO2 06/12/16 11:35 96.0 64 18 109/55 98 06/12/16 08:49 97 Nasal Cannula 2.00 06/12/16 07:50 97.4 59 18 102/74 99 06/12/16 07:20 Nasal Cannula 3.00 06/12/16 04:00 97.1 65 18 102/63 96 06/12/16 00:00 97.0 66 17 112/62 98 06/11/16 20:00 Nasal Cannula 2.00 06/11/16 20:00 97.3 68 18 110/70 99 06/11/16 16:25 97.3 68 17 129/76 99 I/O 06/11/16 06/11/16 06/11/16 06/12/16 06/12/16 06/12/16 07:00 15:00 23:00 07:00 15:00 23:00 Intake Total 541 ml 980 ml 360 ml 420 ml Balance 541 ml 980 ml 360 ml 420 ml Intake Oral 400 ml 980 ml 360 ml 240 ml IV Total 141 ml 180 ml # Voids 4 4 1 2 # Bowel Movements 0 3 1 1 Result Diagram: 06/12/16 0440 06/12/16 0440 Imaging Last Impressions Lower Extremity Ultrasound 06/11/16 0000 Signed Impressions: Service Date/Time: Saturday, June 11, 2016 08:14 - CONCLUSION: 1. Nonocclusive thrombus in the posterior tibial vein otherwise patent system. Dax Nagel MD Head CT 06/08/16 0000 Signed Impressions: Service Date/Time: Wednesday, June 08, 2016 03:31 - CONCLUSION: Normal examination for a patient of this age. Loc Ram MD Chest X-Ray 06/08/16 0000 Signed Impressions: Service Date/Time: Wednesday, June 08, 2016 02:04 - CONCLUSION: No acute disease. Loc Ram MD CT Angiography 06/08/16 0000 Signed Impressions: Service Date/Time: Wednesday, June 08, 2016 03:35 - CONCLUSION: 1. Diffuse bilateral pulmonary emboli with a prominent saddle embolus at the bifurcation of the main right and left pulmonary arteries. 2. No acute pulmonary infiltrates. Loc Ram MD Objective Remarks GENERAL: in NAD with an distinct odor. CARDIOVASCULAR: Regular rate and rhythm without murmurs, gallops, or rubs. RESPIRATORY: Breath sounds equal bilaterally. No accessory muscle use. GASTROINTESTINAL: Abdomen soft, non-tender, nondistended. MUSCULOSKELETAL: No cyanosis, or edema. BACK: Nontender without obvious deformity. No CVA tenderness. Procedures None Medications and IVs Current Medications Medications (Trade) Dose Ordered Sig/Nimo Route Start Time Stop Time Status Last Admin (Heparin Inj) 5,000 units UNSCH PRN IV 06/08/16 10:15 Heparin Sodium (Porcine) 2500 units 2,500 units UNSCH PRN IV 06/08/16 10:15 Heparin Sodium/ Dextrose 250 ml @ 0 mls/hr TITRATE IV 06/08/16 04:15 06/11/16 22:02 (NS 1000 ml Inj) 1,000 ml @ 30 mls/hr Q24H IV 06/08/16 05:02 06/08/16 13:30 (Tylenol) 650 mg Q6H PRN PO 06/08/16 05:15 (Zofran Inj) 4 mg Q6H PRN IV 06/08/16 05:15 (Lactulose Liq) 30 ml DAILY PO 06/08/16 09:00 Miscellaneous Information 1 Q361D XX 06/08/16 05:15 06/08/16 05:15 (Chlorhexidine 2% Cloth) 3 pack Taper DAILY@04 TOP 06/09/16 04:00 06/05/17 03:59 06/12/16 03:46 Chlorhexidine Gluconate 3 pack 3 pack UNSCH PRN TOP 06/08/16 05:15 (Rocephin Inj/NS Inj) 100 ml @ 200 mls/hr Q24H IV 06/10/16 15:00 06/17/16 15:00 06/11/16 15:19 Urinary Catheter: No Vascular Central Line Catheter: No A/P Problem List: (1) Saddle embolus of pulmonary artery ICD Code: I26.92 Status: Acute Plan: Patient initially admitted to the intensive care unit and cared by the paper final inspector. Patient offered TPA however this was declined by the patient. Patient been treated by heparin drip PE protocol. Continue IV heparin drip. I explained to the patient that she would need to be transitioned to an oral medication. She told me via signals that she does not want that. She wrote in a piece of paper that she would want a different doctor. That she wants Dr. Woodard her physician. At this point continue heparin drip until further plans are made. (2) Acute respiratory failure ICD Code: J96.00 Status: Acute Plan: Status massive PE. Celena supplemental oxygen to keep oxygen saturation more than 92%. Patient currently at the 98% on 2 L nasal cannula. 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 (4) Paranoid schizophrenia, in remission ICD Code: F20.0 Status: Chronic Plan: Patient not on any antipsychotics. Being followed by neuropsychology. (5) Elevated troponin ICD Code: R74.8 Status: Acute Plan: Cardiac enzymes elevated secondary to PE. Troponins trending down. (6) Right ventricular dilation ICD Code: I51.7 Status: Acute Plan: Endocardium showed EF of 55-60%, no regional wall motion abnormality, IV dilation. Disease likely secondary to PE. (7) UTI (urinary tract infection) ICD Code: N39.0 Status: Acute Plan: Continue Rocephin. Assessment and Plan Patient is homeless, will require hospitalization and to off oxygen. network contract manager to help assist with anticoagulation medications. Case discussed with director of casework services. The patient is refusing to transition to oral anticoagulation. As per director of casework services, the patient would not say anything about herself or immediate family. Given the fact that she has history of schizophrenia, not all medications makes it difficult to assess if the patient can take medical decisions at this point. I will request a psych consult to assess the patient's capacity to make medical decisions and if this is not possible and a family member cannot be located to make medical decisions for the patient then likely a court appointed guardian would need to be pursued. Discharge Planning Continue to monitor in the medical floor. Problem Qualifiers (1) Saddle embolus of pulmonary artery: Qualified Code: I26.92 - Acute saddle pulmonary embolism without acute cor pulmonale (2) UTI (urinary tract infection): Qualified Code: N30.00 - Acute cystitis without hematuria Doni Álvarez MD Jun 12, 2016 12:38
[2016-06-12] MEDS: cefTRIAXone INJ 2,000 MG in SODIUM CHLORIDE 0.9% INJ 100 ML IV SCH (14:27)
[2016-06-12] MEDS: HEPARIN-D5W INJ 250 ML IV SCH (14:30)
[2016-06-12] MEDS: SODIUM CHLOR 0.9% 1000 ML INJ 1,000 ML IV SCH (19:18)
[2016-06-13] VITALS: BP 111/69; PULSE 73; RESP 17; TEMP 97; O2SAT 95
[2016-06-13 02:17] LABS: APTT (PATIENT) 41.9 SEC (24.3-30.1)
[2016-06-13] MEDS: HEPARIN-D5W INJ 250 ML IV SCH ×2 (06:31→21:26)
[2016-06-13 07:41] LABS: APTT (PATIENT) 40.8 SEC (24.3-30.1)
[2016-06-13 08:00] VITALS: BP 104/55; PULSE 68; RESP 18; TEMP 97.8; O2SAT 98
[2016-06-13] MEDS: LACTULOSE SYRUP 20 GM/30 ML CUP PO SCH (08:07)
[2016-06-13 12:00] VITALS: BP 115/98; PULSE 83; RESP 17; TEMP 97.2; O2SAT 97
--- NOTE | 2016-06-13 12:17 | HHI.PR ---
Subjective Remarks resting comfortable with no distress. no sob or chest pain. Objective Vitals Vital Signs Date Time Temp Pulse Resp B/P Pulse Ox O2 Delivery O2 Flow Rate FiO2 06/13/16 08:00 97.8 68 18 104/55 98 06/13/16 00:00 97.0 73 17 111/69 95 06/12/16 20:00 Nasal Cannula 3.00 06/12/16 20:00 97.6 66 18 121/69 98 06/12/16 18:32 97 Nasal Cannula 2.00 06/12/16 15:54 96.4 68 18 113/61 99 I/O 06/12/16 06/12/16 06/12/16 06/13/16 06/13/16 06/13/16 07:00 15:00 23:00 07:00 15:00 23:00 Intake Total 420 ml 480 ml 1010 ml 354 ml Balance 420 ml 480 ml 1010 ml 354 ml Intake Oral 240 ml 480 ml 360 ml 240 ml IV Total 180 ml 650 ml 114 ml # Voids 2 3 2 2 # Bowel Movements 1 0 1 0 Result Diagram: 06/12/16 0440 06/12/16 0440 Imaging Last Impressions Lower Extremity Ultrasound 06/11/16 0000 Signed Impressions: Service Date/Time: Saturday, June 11, 2016 08:14 - CONCLUSION: 1. Nonocclusive thrombus in the posterior tibial vein otherwise patent system. Dax Nagel MD Head CT 06/08/16 0000 Signed Impressions: Service Date/Time: Wednesday, June 08, 2016 03:31 - CONCLUSION: Normal examination for a patient of this age. Loc Ram MD Chest X-Ray 06/08/16 0000 Signed Impressions: Service Date/Time: Wednesday, June 08, 2016 02:04 - CONCLUSION: No acute disease. Loc Ram MD CT Angiography 06/08/16 0000 Signed Impressions: Service Date/Time: Wednesday, June 08, 2016 03:35 - CONCLUSION: 1. Diffuse bilateral pulmonary emboli with a prominent saddle embolus at the bifurcation of the main right and left pulmonary arteries. 2. No acute pulmonary infiltrates. Loc Ram MD Objective Remarks GENERAL: This is a well-nourished, well-developed patient, in no apparent distress. CARDIOVASCULAR: Regular rate and regular rhythm without murmurs, gallops, or rubs. RESPIRATORY: Clear to auscultation. Breath sounds equal bilaterally. No wheezes , rales, or rhonchi. GASTROINTESTINAL: Abdomen soft, non-tender, nondistended. Normal, active bowel sounds MUSCULOSKELETAL: Extremities without clubbing, cyanosis, or edema. NEURO: Alert & Oriented x4 to person, place, time, situation. Moves all ext x4 Procedures None Medications and IVs Current Medications Sodium Chloride (NS 500 ml Inj) 500 ml @ 500 mls/hr BOLUS ONCE IV Last administered on 06/08/16 01:13; Start 06/08/16 at 00:15; Stop 06/08/16 at 01:14 ; Status DC Iohexol (Omnipaque 350 Inj) 75 ml STK-MED ONCE IV Last administered on 03:55; Start 06/08/16 at 03:55; Stop 06/08/16 at 03:56; Status DC Heparin Sodium (Porcine) (Heparin Inj) 6,000 units ONCE ONCE IV Last administered on 06/08/16 04:29; Start 06/08/16 at 04:15; Stop 06/08/16 at 04:16 ; Status DC Heparin Sodium (Porcine) (Heparin Inj) 5,000 units UNSCH PRN IV APTT LESS THAN 25; Start 06/08/16 at 10:15 Heparin Sodium (Porcine) 2500 units 2,500 units UNSCH PRN IV APTT 25 TO 39 Last administered on 06/12/16 14:27; Start 06/08/16 at 10:15 Heparin Sodium/ Dextrose 250 ml @ 0 mls/hr TITRATE IV Last administered on 06:31; Start 06/08/16 at 04:15 Sodium Chloride (NS 1000 ml Inj) 1,000 ml @ 30 mls/hr Q24H IV Last administered on 06/08/16 13:30; Start 06/08/16 at 05:02 Acetaminophen (Tylenol) 650 mg Q6H PRN PO PAIN 1-10 AND/OR FEVER >101F; Start 06/08/16 at 05:15 Pantoprazole Sodium (Protonix) 40 mg DAILY PO ; Start 06/08/16 at 09:00; Stop at 11:03; Status DC Ondansetron HCl (Zofran Inj) 4 mg Q6H PRN IV NAUSEA OR VOMITING; Start at 05:15 Lactulose (Lactulose Liq) 30 ml DAILY PO ; Start 06/08/16 at 09:00 Albuterol/ Ipratropium (Duoneb Neb) 1 ampule Q4HR NEB PRN INH WHEEZING Last administered on 06/08/16 05:28; Start 06/08/16 at 05:15 Miscellaneous Information 1 Q361D XX Last administered on 06/08/16 05:15; Start 06/08/16 at 05:15 Chlorhexidine Gluconate (Chlorhexidine 2% Cloth) 3 pack Taper DAILY@04 TOP Last administered on 06/12/16 03:46; Start 06/09/16 at 04:00; Stop 06/05/17 at 03:59 Chlorhexidine Gluconate (Chlorhexidine 2% Cloth) 3 pack UNSCH PRN TOP HYGIENIC CARE; Start 06/08/16 at 05:15 Nitrofurantoin Macrocrystals 100 mg 100 mg BIDPC PO ; Start 06/10/16 at 18:00; Stop 06/10/16 at 18:00; Status DC Ceftriaxone Sodium/Sodium Chloride (Rocephin Inj/NS Inj) 100 ml @ 200 mls/hr Q24H IV Last administered on 06/12/16 14:27; Start 06/10/16 at 15:00; Stop 06/17/16 at 15:00 A/P Assessment and Plan A/P (1) Saddle embolus of pulmonary artery ICD Code: I26.92 Status: Acute Plan: Patient initially admitted to the intensive care unit and cared by the hair mixer. Patient offered TPA however this was declined by the patient. Patient been treated by heparin drip PE protocol. Continue IV heparin drip. will consult hematology. (2) Acute respiratory failure-resolved. ICD Code: J96.00 Status: Acute Plan: Status massive PE. Celena supplemental oxygen to keep oxygen saturation more than 92%. 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 will consider psych evaluation. (4) Paranoid schizophrenia, in remission ICD Code: F20.0 Status: Chronic Plan: Patient not on any antipsychotics. Being followed by neuropsychology. (5) Elevated troponin ICD Code: R74.8 Status: Acute Plan: Cardiac enzymes elevated secondary to PE. Troponins trending down. (6) Right ventricular dilation ICD Code: I51.7 Status: Acute Plan: Endocardium showed EF of 55-60%, no regional wall motion abnormality, IV dilation. Disease likely secondary to PE. (7) UTI (urinary tract infection) ICD Code: N39.0 Status: Acute Plan: Continue Rocephin. Teodoro Pritchett MD June 13, 2016 12:17
--- NOTE | 2016-06-13 12:32 | HHI.PR ---
Neuropsych Progress Notes/Response to Tx Contents of Sessions: Adjustment Time with Patient: 15 minutes Premorbid psychological status Premorbid Cognitive, Emotional and Behavioral Status: Tenuous. The patient has chronic schizophrenia and is elective mute. She has no family, and has been chronically homeless. Substance abuse history includes tobacco dependence. Behavioral Reactions of Patient and Family/Support System: Unstable. The patient is homeless and has no family. Emotional/Behavioral Status of Patient and Family/Support System: Unstable. Pertinent issues, if appropriate to this patients clinical care, are described in detail above. Maximizing acute care outcome It is recommended that the patient be monitored for emergent behavioral issues throughout her hospital stay, for which I will follow daily and closely to facilitate an optimal medical outcome. Anticipated Problems Ongoing areas of concern will include behavioral refusal, lack of insight and judgment, which will likely be an ongoing struggle throughout her stay. Treatment Plan This clinician will continue to follow with you throughout the course of this patients acute care treatment, The goals of neuropsychological intervention shall be both educational and supportive as is deemed clinically appropriate as well as to facilitate compliance. Impression This is a 40 year old woman who was found with a significant who is now hospitalized and requires anticoagulation treatment in order to maintain her health. Placed in context, this patient has been homeless for presumably many years, denies past psychiatric treatment, but who presents with elective mutism , where by she only communicates with writing. In order to differentiate, Elective mutism was defined as a refusal to speak in almost all social situations (despite normal ability to do so), while selective mutism is considered to be a failure to speak in specific situations and is strongly associated with social anxiety disorder. During this extended interview, Ms. Pan was clearly able to voice occasional words, although she denied being able to do so. Consequently, all questions asked of Ms. Pan by this examiner were answered by Ms. Pan through written expression. Neurobehavioral examination results reveal a woman of at least average intelligence based on her vocabulary and sentence structure, who is alert, oriented x 4, with normal attention, memory and complex reasoning skills, and who is free from florid psychotic symptoms and who denies suicidal or homicidal ideation or intent. She clearly was able to demonstrate understanding of the medical decisions being offered to her, ask appropriate questions of this examiner and her treating physician and she was clearly able to make decisions based on her understanding. 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 She likely has had psychiatric treatment in the past, but she chose not to report such treatment when asked. Diagnosis: (1) Elective mutism Status: Chronic (2) Paranoid schizophrenia, in remission Status: Chronic Progress Note Narrative Ongoing follow-up of patient seen in hospital room. She was transferred to the floor over the weekend. She reportedly was refusing PO medications. I discussed her situation with nursing staff, and recommended to them to obtain the insert sheet from the medication they wish her to take from pharmacy, and that she will generally comply going forward, as this is why we have had success with her compliance thus far. Otherwise, there were no complaints from the patient. I will continue to follow to assist in her care. Rosalio Jacinto PhD June 13, 2016 12:32 pm
[2016-06-13 16:00] VITALS: BP 123/56; PULSE 70; RESP 17; TEMP 98.3; O2SAT 99
[2016-06-13] MEDS: cefTRIAXone INJ 2,000 MG in SODIUM CHLORIDE 0.9% INJ 100 ML IV SCH (17:24)
[2016-06-13 20:00] VITALS: BP 113/63; PULSE 68; RESP 18; TEMP 99.1; O2SAT 99
[2016-06-13] MEDS: SODIUM CHLOR 0.9% 1000 ML INJ 1,000 ML IV SCH (20:56)
[2016-06-13 21:13] VITALS: O2SAT 99
[2016-06-14] VITALS (8 sets, daily range): BP systolic 94–110; BP diastolic 50–66; PULSE 56–83; RESP 16–18; TEMP 96–97.6; O2SAT 97–99
[2016-06-14] MEDS: CHLORHEXIDINE GLUCONATE 2 % 1 PACK (2 CLOTHS) TOP SCH (03:26)
--- NOTE | 2016-06-14 07:24 | MB ---
cc: VIV DELA CRUZ DATE OF CONSULTATION 06/13/2016 DATE OF 1975 REASON FOR CONSULTATION Patient with acute pulmonary embolism and lower extremity thrombosis. HISTORY OF PRESENT ILLNESS This is a 40-year-old female who is homeless and she was found lying on the sidewalk. EMS and police were called to the scene. She complained of chest pain. She was brought to the emergency room and a CTA was performed which revealed a saddle pulmonary embolus with RV dilation. She had elevated troponin levels. She was hypotensive. The patient has an extensive psychiatric history. She does not respond to questions verbally. She nods her head and responds by writing on a piece of paper. The patient was offered TPA, but she declined. She was placed on a heparin GTT. Upon review of records, it appears that the patient has a history of paranoid schizophrenia, as well as elective mutism. The patient does not give any history. She tells me that she is done talking to any of the health healthcare representative at this time. Psychiatry is seeing the patient. REVIEW OF SYSTEMS Unable to be obtained due to the patient's refusal to answer questions. PAST MEDICAL HISTORY 1. History of paranoid schizophrenia. 1. History of elective mutism. PAST SURGICAL HISTORY Unknown SOCIAL HISTORY She is homeless. She denies smoking cigarettes. History of alcohol abuse or illicit drug use is not known. MEDICATIONS 1. Ceftriaxone 2 grams IV q.24 h 2. Heparin GTT 3. Lactulose 30 cc p.o. daily 4. Tylenol 650 p.o. q.6 h p.r.n. 5. Zofran 4 mg IV q.6 h p.r.n. 6. DuoNebs q.4 h p.r.n. ALLERGIES NO KNOWN DRUG ALLERGIES. PHYSICAL EXAM VITAL SIGNS: Blood pressure is 113/63, pulse is in the 60s, temperature is 99.1, O2 sats are 99% on room air, respiratory rate is 14. GENERAL: This is a disheveled female with poor hygiene. She is wearing sunglasses. She has refused to take them off during the course of her admission. She does not verbalize. She nods to questions. HEENT: Pupils are equal, round, react to light. EOMI. No oral thrush. No oral lesions. NECK: Supple. No JVD, no bruits. No lymphadenopathy. CHEST: Clear to auscultation bilaterally. CARDIAC: S1-S2 regular rate and rhythm. ABDOMEN: Soft, nontender, nondistended. Bowel sounds are present. EXTREMITIES: Without any edema, erythema or cyanosis. SKIN: Without any petechiae lesion or bruises. NEUROLOGIC: No focal deficits. PSYCHIATRIC: The patient has a history of paranoid schizophrenia and elective mutism. She refuses to speak. She does respond by writing on a piece of paper. LABORATORY DATA WBC is 11, hemoglobin is 13.6, platelet count is 336. Serum chemistries show a sodium 136, potassium 5.1, CO2 29.5, BUN 26, creatinine 0.88, GFR 71. Coags show PT of 40.8. IMAGING STUDIES CTA shows diffuse bilateral pulmonary emboli with a prominent saddle embolus at the bifurcation of the main right and left pulmonary arteries. Doppler ultrasound showed nonocclusive thrombus in the posterior tibial vein. ASSESSMENT/PLAN This is a 40-year-old female with a history of paranoid schizophrenia, elective mutism, homelessness who was brought to the emergency room with chest pain. She was found to have saddle pulmonary embolism based on the CTA and also nonocclusive thrombus in the posterior tibial vein. 1. Saddle embolus and nonocclusive thrombus in the posterior tibial vein. She has an extensive clot burden. She has refused TPA. She is currently on heparin GTT. The patient has a difficult social situation. She is homeless. She also has psychiatric issues. This patient needs to be on anticoagulation. I would recommend transitioning her to Coumadin although compliance with Coumadin will be questionable in this patient. She does not have a primary care physician. We will be ask case management for assistance. We can start her on Coumadin. She will need to remain on heparin GTT until her INR is above two for at least 48 hours. Since the patient is a poor historian, I was unable to get any information regarding any provoking factors that may have caused pulmonary embolism at a young age of 40. I will obtain a hypercoagulable workup. This patient will need to be on anticoagulation indefinitely. There will be multiple barriers to her continued treatment with Coumadin in the future. These include homelessness, lack of available outpatient follow up with the primary care physician and likely compliance issue. Thank you for allowing me to participate in the care of this patient. I will continue to follow this patient along. MD NEELAM Cao/GINGER /12:47 AM /7:06 AM [id number]
[2016-06-14 07:45] LABS: HEMATOCRIT 37.9 % (35.0-46.0); MEAN CELL VOLUME 86.4 FL (80.0-100.0); MEAN CORPUSCULAR HEMOGLOBIN 28.6 PG (27.0-34.0); MEAN CORPUSCULAR HGB CONC 33.1 % (32.0-36.0); PLATELET COUNT 315 TH/MM3 (150-450); RED BLOOD COUNT 4.39 MIL/MM3 (4.00-5.30); RED CELL DISTRIBUTION WIDTH 14.2 % (11.6-17.2); REVIEW FLAG FINAL; WHITE BLOOD COUNT 11.3 TH/MM3 (4.0-11.0)
[2016-06-14 08:00] LABS: APTT (PATIENT) 40.1 SEC (24.3-30.1)
[2016-06-14] MEDS: LACTULOSE SYRUP 20 GM/30 ML CUP PO SCH (09:00)
--- NOTE | 2016-06-14 09:19 | HHI.PR ---
Subjective Remarks in no distress. no sob or pain. resting comfortably. Objective Vitals Vital Signs Date Time Temp Pulse Resp B/P Pulse Ox O2 Delivery O2 Flow Rate FiO2 06/14/16 07:42 96.4 56 17 94/50 97 06/14/16 04:00 96.0 58 17 110/66 98 06/14/16 01:19 Nasal Cannula 3.00 06/14/16 00:00 97.5 69 18 97/55 99 06/13/16 21:13 99 Nasal Cannula 2.00 06/13/16 20:00 99.1 68 18 113/63 99 06/13/16 16:00 98.3 70 17 123/56 99 06/13/16 12:03 2.00 06/13/16 12:00 97.2 83 17 115/98 97 I/O 06/13/16 06/13/16 06/13/16 06/14/16 06/14/16 06/14/16 07:00 15:00 23:00 07:00 15:00 23:00 Intake Total 354 ml 1440 ml 599 ml 335 ml Output Total 1675 ml Balance 354 ml -235 ml 599 ml 335 ml Intake Oral 240 ml 1440 ml 360 ml 240 ml IV Total 114 ml 239 ml 95 ml Output Urine Total 1675 ml # Voids 2 4 2 1 # Bowel Movements 0 1 1 1 Result Diagram: 06/14/16 0715 06/12/16 0440 Imaging Last Impressions Lower Extremity Ultrasound 06/11/16 0000 Signed Impressions: Service Date/Time: Saturday, June 11, 2016 08:14 - CONCLUSION: 1. Nonocclusive thrombus in the posterior tibial vein otherwise patent system. Dax Nagel MD Head CT 06/08/16 0000 Signed Impressions: Service Date/Time: Wednesday, June 08, 2016 03:31 - CONCLUSION: Normal examination for a patient of this age. Loc Ram MD Chest X-Ray 06/08/16 0000 Signed Impressions: Service Date/Time: Wednesday, June 08, 2016 02:04 - CONCLUSION: No acute disease. Loc Ram MD CT Angiography 06/08/16 0000 Signed Impressions: Service Date/Time: Wednesday, June 08, 2016 03:35 - CONCLUSION: 1. Diffuse bilateral pulmonary emboli with a prominent saddle embolus at the bifurcation of the main right and left pulmonary arteries. 2. No acute pulmonary infiltrates. Loc Ram MD Objective Remarks GENERAL: This is a well-nourished, well-developed patient, in no apparent distress. CARDIOVASCULAR: Regular rate and regular rhythm without murmurs, gallops, or rubs. RESPIRATORY: Clear to auscultation. Breath sounds equal bilaterally. No wheezes , rales, or rhonchi. GASTROINTESTINAL: Abdomen soft, non-tender, nondistended. Normal, active bowel sounds MUSCULOSKELETAL: Extremities without clubbing, cyanosis, or edema. NEURO: Alert & Oriented x4 to person, place, time, situation. Moves all ext x4 Procedures None Medications and IVs Current Medications Sodium Chloride (NS 500 ml Inj) 500 ml @ 500 mls/hr BOLUS ONCE IV Last administered on 06/08/16 01:13; Start 06/08/16 at 00:15; Stop 06/08/16 at 01:14 ; Status DC Iohexol (Omnipaque 350 Inj) 75 ml STK-MED ONCE IV Last administered on 03:55; Start 06/08/16 at 03:55; Stop 06/08/16 at 03:56; Status DC Heparin Sodium (Porcine) (Heparin Inj) 6,000 units ONCE ONCE IV Last administered on 06/08/16 04:29; Start 06/08/16 at 04:15; Stop 06/08/16 at 04:16 ; Status DC Heparin Sodium (Porcine) (Heparin Inj) 5,000 units UNSCH PRN IV APTT LESS THAN 25; Start 06/08/16 at 10:15 Heparin Sodium (Porcine) 2500 units 2,500 units UNSCH PRN IV APTT 25 TO 39 Last administered on 06/12/16 14:27; Start 06/08/16 at 10:15 Heparin Sodium/ Dextrose 250 ml @ 0 mls/hr TITRATE IV Last administered on 21:26; Start 06/08/16 at 04:15 Sodium Chloride (NS 1000 ml Inj) 1,000 ml @ 30 mls/hr Q24H IV Last administered on 06/13/16 20:56; Start 06/08/16 at 05:02 Acetaminophen (Tylenol) 650 mg Q6H PRN PO PAIN 1-10 AND/OR FEVER >101F; Start 06/08/16 at 05:15 Pantoprazole Sodium (Protonix) 40 mg DAILY PO ; Start 06/08/16 at 09:00; Stop at 11:03; Status DC Ondansetron HCl (Zofran Inj) 4 mg Q6H PRN IV NAUSEA OR VOMITING; Start at 05:15 Lactulose (Lactulose Liq) 30 ml DAILY PO ; Start 06/08/16 at 09:00 Albuterol/ Ipratropium (Duoneb Neb) 1 ampule Q4HR NEB PRN INH WHEEZING Last administered on 06/08/16 05:28; Start 06/08/16 at 05:15 Miscellaneous Information 1 Q361D XX Last administered on 06/08/16 05:15; Start 06/08/16 at 05:15 Chlorhexidine Gluconate (Chlorhexidine 2% Cloth) Taper DAILY@04 TOP Last administered on 06/12/16 03:46; Start 06/09/16 at 04:00; Stop 06/05/17 at 03:59 Chlorhexidine Gluconate (Chlorhexidine 2% Cloth) 3 pack UNSCH PRN TOP HYGIENIC CARE; Start 06/08/16 at 05:15 Nitrofurantoin Macrocrystals 100 mg 100 mg BIDPC PO ; Start 06/10/16 at 18:00; Stop 06/10/16 at 18:00; Status DC Ceftriaxone Sodium/Sodium Chloride (Rocephin Inj/NS Inj) 100 ml @ 200 mls/hr Q24H IV Last administered on 06/13/16 17:24; Start 06/10/16 at 15:00; Stop 06/17 at 15:00 A/P Assessment and Plan A/P (1) Saddle embolus of pulmonary artery Patient offered TPA however this was declined by the patient. Patient been treated by heparin drip PE protocol. Continue IV heparin drip. will start coumadin with pharmacy consult for coumadin dosing. hematology consult appreciated. needs indefinite anticoagulation. (2) Acute respiratory failure-resolved. [place] supplemental oxygen to keep oxygen saturation more than 92%. (3) Elective mutism Neuropsychology following Patient is nonverbal communicates only by nodding head or writing. consulted psych. (4) Paranoid schizophrenia, in remission psych consult as noted above. (5) Elevated troponin I Cardiac enzymes elevated secondary to PE. Troponins trending down. (6) Right ventricular dilation Endocardium showed EF of 55-60%, no regional wall motion abnormality, IV dilation. Disease likely secondary to PE. (7) UTI (urinary tract infection) Continue Rocephin. Discharge Planning case management consulted to assist with dc planning. Teodoro Pritchett MD June 14, 2016 09:19
[2016-06-14 10:08] LABS: PROTHROMBIN TIME - PATIENT 10.5 SEC (9.8-11.6)
--- NOTE | 2016-06-14 10:22 | PD.ONC.PN ---
Subjective Subjective Remarks Afebrile overnight. Patient resting in bed. She is nonverbal. She shakes her head no when I ask if she has had pain or bleeding. She shakes her head no when I ask if she has any questions. Objective Data Date Time Temp Pulse Resp B/P Pulse Ox O2 Delivery O2 Flow Rate FiO2 06/14/16 07:42 96.4 56 17 94/50 97 06/14/16 04:00 96.0 58 17 110/66 98 06/14/16 01:19 Nasal Cannula 3.00 06/14/16 00:00 97.5 69 18 97/55 99 06/13/16 21:13 99 Nasal Cannula 2.00 06/13/16 20:00 99.1 68 18 113/63 99 06/13/16 16:00 98.3 70 17 123/56 99 06/13/16 12:03 2.00 06/13/16 12:00 97.2 83 17 115/98 97 06/14/16 06/14/16 06/14/16 07:00 15:00 23:00 Intake Total 335 ml Balance 335 ml Result Diagram: 06/14/16 0715 06/12/16 0440 Laboratory Results Laboratory Tests Test 06/14/16 07:15 White Blood Count 11.3 TH/MM3 Red Blood Count 4.39 MIL/MM3 Hemoglobin 12.6 GM/DL Hematocrit 37.9 % Mean Corpuscular Volume 86.4 FL Mean Corpuscular Hemoglobin 28.6 PG Mean Corpuscular Hemoglobin 33.1 % Concent Red Cell Distribution Width 14.2 % Platelet Count 315 TH/MM3 Mean Platelet Volume 8.1 FL Prothrombin Time 10.5 SEC Prothromb Time International 1.0 RATIO Ratio Activated Partial 40.1 SEC Thromboplast Time Administered Medications Medications (Trade) Dose Ordered Sig/Nimo Route PRN Reason Start Time Stop Time Status Last Admin Dose Admin Heparin Sodium (Porcine) 2500 units 2,500 units UNSCH PRN IV APTT 25 TO 39 06/08/16 10:15 06/12/16 14:27 Heparin Sodium/ Dextrose 250 ml @ 0 mls/hr TITRATE IV 06/08/16 04:15 06/13/16 21:26 Sodium Chloride (NS 1000 ml Inj) 1,000 ml @ 30 mls/hr Q24H IV 06/08/16 05:02 06/13/16 20:56 Miscellaneous Information 1 Q361D XX 06/08/16 05:15 06/08/16 05:15 Chlorhexidine Gluconate Taper DAILY@04 TOP 06/09/16 04:00 06/05/17 03:59 06/12/16 03:46 Ceftriaxone Sodium/Sodium Chloride (Rocephin Inj/NS Inj) 100 ml @ 200 mls/hr Q24H IV 06/10/16 15:00 06/17/16 15:00 06/13/16 17:24 Objective Remarks GENERAL: Middle aged female, sitting up in bed in nad. SKIN: Warm and dry. HEAD: Normocephalic. EYES: No injection or drainage. NECK: Supple, trachea midline. CARDIOVASCULAR: +S1/S2 RESPIRATORY: Breath sounds equal bilaterally. No accessory muscle use. GASTROINTESTINAL: Abdomen soft, non-tender, nondistended. EXTREMITIES: No cyanosis Assessment/Plan Problem List: (1) Saddle embolus of pulmonary artery Status: Acute Plan: --on heparin gtt bridge to coumadin --Saddle embolus and nonocclusive thrombus in the posterior tibial vein. --refused TPA. --hypercoagulable w/u pending. Assessment 40y/o female with acute pulmonary embolism and lower extremity thrombosis. history of paranoid schizophrenia, as well as elective mutism. homelessness Plan 1. monitor CBC 2. continue heparin bridge to coumadin Attending Statement The exam, history, and the medical decision-making described in the above note were completed with the assistance of the mid-level provider. I reviewed and agree with the findings presented. I attest that I had a [id number] encounter with the patient on the same day, and personally performed and documented my assessment and findings in the medical record Problem Qualifiers (1) Saddle embolus of pulmonary artery: Qualified Code: I26.92 - Acute saddle pulmonary embolism without acute cor pulmonale Tiffany Varma June 14, 2016 10:22 To Sullivan MD June 14, 2016 21:55
--- NOTE | 2016-06-14 12:25 | HHI.PR ---
Neuropsych Progress Notes/Response to Tx Contents of Sessions: Adjustment Time with Patient: 15 minutes Premorbid psychological status Premorbid Cognitive, Emotional and Behavioral Status: Tenuous. The patient has chronic schizophrenia and is elective mute. She has no family, and has been chronically homeless. Substance abuse history includes tobacco dependence. Behavioral Reactions of Patient and Family/Support System: Unstable. The patient is homeless and has no family. Emotional/Behavioral Status of Patient and Family/Support System: Unstable. Pertinent issues, if appropriate to this patients clinical care, are described in detail above. Maximizing acute care outcome It is recommended that the patient be monitored for emergent behavioral issues throughout her hospital stay, for which I will follow daily and closely to facilitate an optimal medical outcome. Anticipated Problems Ongoing areas of concern will include behavioral refusal, lack of insight and judgment, which will likely be an ongoing struggle throughout her stay. Treatment Plan This clinician will continue to follow with you throughout the course of this patients acute care treatment, The goals of neuropsychological intervention shall be both educational and supportive as is deemed clinically appropriate as well as to facilitate compliance. Impression This is a 40 year old woman who was found with a significant who is now hospitalized and requires anticoagulation treatment in order to maintain her health. Placed in context, this patient has been homeless for presumably many years, denies past psychiatric treatment, but who presents with elective mutism , where by she only communicates with writing. In order to differentiate, Elective mutism was defined as a refusal to speak in almost all social situations (despite normal ability to do so), while selective mutism is considered to be a failure to speak in specific situations and is strongly associated with social anxiety disorder. During this extended interview, Ms. Pan was clearly able to voice occasional words, although she denied being able to do so. Consequently, all questions asked of Ms. Pan by this examiner were answered by Ms. Pan through written expression. Neurobehavioral examination results reveal a woman of at least average intelligence based on her vocabulary and sentence structure, who is alert, oriented x 4, with normal attention, memory and complex reasoning skills, and who is free from florid psychotic symptoms and who denies suicidal or homicidal ideation or intent. She clearly was able to demonstrate understanding of the medical decisions being offered to her, ask appropriate questions of this examiner and her treating physician and she was clearly able to make decisions based on her understanding. 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 She likely has had psychiatric treatment in the past, but she chose not to report such treatment when asked. Diagnosis: (1) Elective mutism Status: Chronic (2) Paranoid schizophrenia, in remission Status: Chronic Progress Note Narrative Ongoing follow-up of patient seen bedside. Progress and inducements to facilitate compliance was discussed with nursing staff. I also had the opportunity to consult with Dr. Guthrie, who was consulted. The patient remains compliant and cooperative, provided that procedures and medications are explained to her, to include providing her the insert information for medications physicians may wish her to take PO (have pharmacy print out this information). She may not read the information, but including her in as a partner in such decision making will greatly facilitate compliance. I will continue to follow with you. Rosalio Jacinto PhD June 14, 2016 12:25
[2016-06-14] MEDS: HEPARIN-D5W INJ 250 ML IV SCH (13:26)
--- NOTE | 2016-06-14 13:56 | PD.CONS ---
Provisional Diagnosis Admission Date Jun 08, 2016 at 04:41 [place] I. Schizophrenia, paranoid type History of Present Illness Service Psychiatry Consult Requested By Primary Care Physician Unknown HPI The patient is a 40-year-old woman, homeless, unknown social circumstances, with psychiatric history of paranoid schizophrenia, hospitalized and requires anticoagulation treatment in order to maintain her health. Patient was diagnosed with acute respiratory failure, possible PE. Accordingly. Consulted to psychiatry due to history of schizophrenia and selective mutism. The conversation with primary care physician and aspiration of knows, since patient arrived to the hospital she has been mostly mute, communicated by noting and by writing. Patient was visited for psychiatric evaluation, but once I presented as a psychiatrist, wrote in a piece of paper I did not want to speak with a psychiatric, I do not have any mental condition, I do not have depression, schizophrenia is under control, I dont need medication, I have not suicidal, not homicidal. In despite of reassurance and redirection patient refuses to continue providing information to me. I spoke with Dr. Jacinto who has been following up the patient and he does not feel that the patient is a threat to self and other, is psychotic or need any immediate psychiatric intervention. I also spoke with Dr. Pritchett and he told me that his concern is that the patient might refuse medication necessary to maintain her health, but so far she has been compliant. We will keep in communication in case of the patient needs to be addressed psychiatrically. Past Family Social History Coded Allergies: No Known Allergies (Unverified , 06/07/16) No Active Prescriptions or Reported Meds Current Medications Medications (Trade) Dose Ordered Sig/Nimo Route Start Time Stop Time Status Last Admin (Heparin Inj) 5,000 units UNSCH PRN IV 06/08/16 10:15 Heparin Sodium (Porcine) 2500 units 2,500 units UNSCH PRN IV 06/08/16 10:15 06/12/16 14:27 Heparin Sodium/ Dextrose 250 ml @ 0 mls/hr TITRATE IV 06/08/16 04:15 06/14/16 13:26 (NS 1000 ml Inj) 1,000 ml @ 30 mls/hr Q24H IV 06/08/16 05:02 06/13/16 20:56 (Tylenol) 650 mg Q6H PRN PO 06/08/16 05:15 (Zofran Inj) 4 mg Q6H PRN IV 06/08/16 05:15 (Lactulose Liq) 30 ml DAILY PO 06/08/16 09:00 Miscellaneous Information 1 Q361D XX 06/08/16 05:15 06/08/16 05:15 (Chlorhexidine 2% Cloth) Taper DAILY@04 TOP 06/09/16 04:00 06/05/17 03:59 06/12/16 03:46 Chlorhexidine Gluconate 3 pack 3 pack UNSCH PRN TOP 06/08/16 05:15 (Rocephin Inj/NS Inj) 100 ml @ 200 mls/hr Q24H IV 06/10/16 15:00 06/17/16 15:00 06/13/16 17:24 Warfarin Sodium 5 mg 5 mg DAILY@1600 PO 06/14/16 16:00 (Coumadin Consult Pharmacy) 0 ml @ 0 mls/hr UNSCH OTHER 06/14/16 09:15 Physical Exam Vital Signs Vital Signs Date Time Temp Pulse Resp B/P Pulse Ox O2 Delivery O2 Flow Rate FiO2 06/14/16 11:40 96.5 68 17 109/63 98 06/14/16 09:30 Nasal Cannula 2.00 I/O 06/13/16 06/13/16 06/14/16 08:00 16:00 00:00 Intake Total 354 ml 1440 ml 599 ml Output Total 1675 ml Balance 354 ml -235 ml 599 ml Mental Status Examination Speech: Other (mute) Orientation: Person Thought Process: Logical, Linear Thought Content: Other (guarded) Suicidal Ideation: No Previous Suicide Attempts: No Homicidal Ideation: No Previous Homicide Attempts: No Judgment: Poor Affect: Irritable Mood: Angry Motor Activity: Normal gait Assessment & Plan Problem List: (1) Paranoid schizophrenia Assessment & Plan: Patient continues to be selectively mute, refused to complete the psychiatric assessment. However she denies suicidal or homicidal ideation, visual and auditory hallucinations. Patient has been compliant with medication and medical recommendations so far. He is oddly related, wearing sunglasses into darkness, communicated just by nodding and writing. So far, other than this bizarre behavior, no further agitation, aggressive behavior or florid psychosis has been described. Patient does not seem to be a danger to self and others, I do not see any reason for involuntary psychiatric commitment. Case was discussed with primary medical team and neuropsychologist. Please, feel free to contact me if any concerns or questions. ICD Code: F20.0 Assessment & Plan Estimated LOS: Vijay Valdes MD June 14, 2016 13:56
[2016-06-14] MEDS: cefTRIAXone INJ 2,000 MG in SODIUM CHLORIDE 0.9% INJ 100 ML IV SCH (14:23)
[2016-06-14] MEDS: WARFARIN SOD 5 MG TAB PO SCH (16:27)
[2016-06-14] MEDS: SODIUM CHLOR 0.9% 1000 ML INJ 1,000 ML IV SCH (19:18)
[2016-06-14] MEDS ORDERED: SODIUM CHLORIDE 0.65% NASAL SPRAY 45 ML BTL EACH NARE PRN (21:00)
[2016-06-14] MEDS ORDERED: diphenhydrAMINE HCL 50 MG CAP PO ONE (21:00)
[2016-06-15] VITALS (7 sets, daily range): BP systolic 93–118; BP diastolic 56–79; PULSE 62–79; RESP 17–18; TEMP 96.7–97.9; O2SAT 96–100
[2016-06-15] MEDS: CHLORHEXIDINE GLUCONATE 2 % 1 PACK (2 CLOTHS) TOP SCH (02:07)
[2016-06-15] MEDS: HEPARIN-D5W INJ 250 ML IV SCH ×2 (03:12→18:34)
[2016-06-15 07:16] LABS: APTT (PATIENT) 44.2 SEC (24.3-30.1); INTERNATIONAL NORMALIZED RATIO 0.9 RATIO; PROTHROMBIN TIME - PATIENT 10.1 SEC (9.8-11.6)
[2016-06-15] MEDS: LACTULOSE SYRUP 20 GM/30 ML CUP PO SCH (09:00)
--- NOTE | 2016-06-15 12:05 | HHI.PR ---
Subjective Remarks resting comfortably with no distress. denies sob or pain. Objective Vitals Vital Signs Date Time Temp Pulse Resp B/P Pulse Ox O2 Delivery O2 Flow Rate FiO2 06/15/16 11:03 96 Nasal Cannula 2.00 06/15/16 08:19 96.9 79 18 106/58 99 06/15/16 04:45 97.9 62 18 106/56 100 06/15/16 01:00 96.7 66 17 106/63 100 06/14/16 20:50 96.7 61 16 108/58 98 06/14/16 17:59 97 Nasal Cannula 2.00 06/14/16 15:30 97.6 83 17 107/58 97 I/O 06/14/16 06/14/16 06/14/16 06/15/16 06/15/16 06/15/16 07:00 15:00 23:00 07:00 15:00 23:00 Intake Total 335 ml 710 ml 947 ml 598 ml Output Total 8 ml Balance 335 ml 710 ml 947 ml 590 ml Intake Oral 240 ml 560 ml 720 ml 480 ml IV Total 95 ml 150 ml 227 ml 118 ml Output Urine Total 8 ml # Voids 1 6 5 # Bowel Movements 1 1 4 2 Result Diagram: 06/14/16 0715 06/12/16 0440 Imaging Last Impressions Lower Extremity Ultrasound 06/11/16 0000 Signed Impressions: Service Date/Time: Saturday, June 11, 2016 08:14 - CONCLUSION: 1. Nonocclusive thrombus in the posterior tibial vein otherwise patent system. Dax Nagel MD Head CT 06/08/16 0000 Signed Impressions: Service Date/Time: Wednesday, June 08, 2016 03:31 - CONCLUSION: Normal examination for a patient of this age. Loc Ram MD Chest X-Ray 06/08/16 0000 Signed Impressions: Service Date/Time: Wednesday, June 08, 2016 02:04 - CONCLUSION: No acute disease. Loc Ram MD CT Angiography 06/08/16 0000 Signed Impressions: Service Date/Time: Wednesday, June 08, 2016 03:35 - CONCLUSION: 1. Diffuse bilateral pulmonary emboli with a prominent saddle embolus at the bifurcation of the main right and left pulmonary arteries. 2. No acute pulmonary infiltrates. Loc Ram MD Objective Remarks GENERAL: This is a well-nourished, well-developed patient, in no apparent distress. CARDIOVASCULAR: Regular rate and regular rhythm without murmurs, gallops, or rubs. RESPIRATORY: Clear to auscultation. Breath sounds equal bilaterally. No wheezes , rales, or rhonchi. GASTROINTESTINAL: Abdomen soft, non-tender, nondistended. Normal, active bowel sounds MUSCULOSKELETAL: Extremities without clubbing, cyanosis, or edema. NEURO: Alert & Oriented x4 to person, place, time, situation. Moves all ext x4 Procedures None Medications and IVs Current Medications Sodium Chloride (NS 500 ml Inj) 500 ml @ 500 mls/hr BOLUS ONCE IV Last administered on 06/08/16 01:13; Start 06/08/16 at 00:15; Stop 06/08/16 at 01:14 ; Status DC Iohexol (Omnipaque 350 Inj) 75 ml STK-MED ONCE IV Last administered on 03:55; Start 06/08/16 at 03:55; Stop 06/08/16 at 03:56; Status DC Heparin Sodium (Porcine) (Heparin Inj) 6,000 units ONCE ONCE IV Last administered on 06/08/16 04:29; Start 06/08/16 at 04:15; Stop 06/08/16 at 04:16 ; Status DC Heparin Sodium (Porcine) (Heparin Inj) 5,000 units UNSCH PRN IV APTT LESS THAN 25; Start 06/08/16 at 10:15 Heparin Sodium (Porcine) 2500 units 2,500 units UNSCH PRN IV APTT 25 TO 39 Last administered on 06/12/16 14:27; Start 06/08/16 at 10:15 Heparin Sodium/ Dextrose 250 ml @ 0 mls/hr TITRATE IV Last administered on 03:12; Start 06/08/16 at 04:15 Sodium Chloride (NS 1000 ml Inj) 1,000 ml @ 30 mls/hr Q24H IV Last administered on 06/13/16 20:56; Start 06/08/16 at 05:02 Acetaminophen (Tylenol) 650 mg Q6H PRN PO PAIN 1-10 AND/OR FEVER >101F; Start 06/08/16 at 05:15 Pantoprazole Sodium (Protonix) 40 mg DAILY PO ; Start 06/08/16 at 09:00; Stop at 11:03; Status DC Ondansetron HCl (Zofran Inj) 4 mg Q6H PRN IV NAUSEA OR VOMITING; Start at 05:15 Lactulose (Lactulose Liq) 30 ml DAILY PO ; Start 06/08/16 at 09:00 Albuterol/ Ipratropium (Duoneb Neb) 1 ampule Q4HR NEB PRN INH WHEEZING Last administered on 06/08/16 05:28; Start 06/08/16 at 05:15 Miscellaneous Information 1 Q361D XX Last administered on 06/08/16 05:15; Start 06/08/16 at 05:15 Chlorhexidine Gluconate (Chlorhexidine 2% Cloth) Taper DAILY@04 TOP Last administered on 06/12/16 03:46; Start 06/09/16 at 04:00; Stop 06/05/17 at 03:59 Chlorhexidine Gluconate (Chlorhexidine 2% Cloth) 3 pack UNSCH PRN TOP HYGIENIC CARE; Start 06/08/16 at 05:15 Nitrofurantoin Macrocrystals 100 mg 100 mg BIDPC PO ; Start 06/10/16 at 18:00; Stop 06/10/16 at 18:00; Status DC Ceftriaxone Sodium/Sodium Chloride (Rocephin Inj/NS Inj) 100 ml @ 200 mls/hr Q24H IV Last administered on 06/14/16 14:23; Start 06/10/16 at 15:00; Stop 06/17 at 15:00 Warfarin Sodium 5 mg 5 mg DAILY@1600 PO Last administered on 06/14/16 16:27; Start 06/14/16 at 16:00 Pharmacy Profile Note (Coumadin Consult Pharmacy) 0 ml @ 0 mls/hr UNSCH OTHER ; Start 06/14/16 at 09:15 Diphenhydramine HCl (Benadryl) 50 mg ONCE ONCE PO Last administered on 21:10; Start 06/14/16 at 21:00; Stop 06/14/16 at 21:01; Status DC Sodium Chloride ([place]) 2 spray Q4H PRN EACH NARE NASAL CONGESTION; Start 06/14/16 at 21:00 Warfarin Sodium (Coumadin) 2.5 mg ONCE PO ; Start 06/15/16 at 16:00; Stop at 21:00 A/P Assessment and Plan A/P (1) Saddle embolus of pulmonary artery Patient offered TPA however this was declined by the patient. Patient been treated by heparin drip PE protocol. Continue with coumadin and IV heparin drip; will dc heparin drip when INR > 2. hematology consult appreciated. needs indefinite anticoagulation. (2) Acute respiratory failure-resolved. [place] supplemental oxygen to keep oxygen saturation more than 92%. (3) Elective mutism Neuropsychology following Patient is nonverbal communicates only by nodding head or writing. psych consult appreciated. (4) Paranoid schizophrenia, in remission psych consult as noted above. (5) Elevated troponin I Cardiac enzymes elevated secondary to PE. Troponins trending down. (6) Right ventricular dilation Endocardium showed EF of 55-60%, no regional wall motion abnormality, IV dilation. Disease likely secondary to PE. (7) UTI (urinary tract infection) Continue Rocephin. Discharge Planning when INR is therapeutic. case management consulted to assist with dc planning. Teodoro Pritchett MD June 15, 2016 12:05
--- NOTE | 2016-06-15 12:18 | HHI.PR ---
Neuropsych Progress Notes/Response to Tx Time with Patient: 15 minutes Premorbid psychological status Premorbid Cognitive, Emotional and Behavioral Status: Tenuous. The patient has chronic schizophrenia and is elective mute. She has no family, and has been chronically homeless. Substance abuse history includes tobacco dependence. Behavioral Reactions of Patient and Family/Support System: Unstable. The patient is homeless and has no family. Emotional/Behavioral Status of Patient and Family/Support System: Unstable. Pertinent issues, if appropriate to this patients clinical care, are described in detail above. Maximizing acute care outcome It is recommended that the patient be monitored for emergent behavioral issues throughout her hospital stay, for which I will follow daily and closely to facilitate an optimal medical outcome. Anticipated Problems Ongoing areas of concern will include behavioral refusal, lack of insight and judgment, which will likely be an ongoing struggle throughout her stay. Treatment Plan This clinician will continue to follow with you throughout the course of this patients acute care treatment, The goals of neuropsychological intervention shall be both educational and supportive as is deemed clinically appropriate as well as to facilitate compliance. Impression This is a 40 year old woman who was found with a significant who is now hospitalized and requires anticoagulation treatment in order to maintain her health. Placed in context, this patient has been homeless for presumably many years, denies past psychiatric treatment, but who presents with elective mutism , where by she only communicates with writing. In order to differentiate, Elective mutism was defined as a refusal to speak in almost all social situations (despite normal ability to do so), while selective mutism is considered to be a failure to speak in specific situations and is strongly associated with social anxiety disorder. During this extended interview, Ms. Pan was clearly able to voice occasional words, although she denied being able to do so. Consequently, all questions asked of Ms. Pan by this examiner were answered by Ms. Pan through written expression. Neurobehavioral examination results reveal a woman of at least average intelligence based on her vocabulary and sentence structure, who is alert, oriented x 4, with normal attention, memory and complex reasoning skills, and who is free from florid psychotic symptoms and who denies suicidal or homicidal ideation or intent. She clearly was able to demonstrate understanding of the medical decisions being offered to her, ask appropriate questions of this examiner and her treating physician and she was clearly able to make decisions based on her understanding. 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 She likely has had psychiatric treatment in the past, but she chose not to report such treatment when asked. Diagnosis: (1) Elective mutism Status: Chronic (2) Paranoid schizophrenia, in remission Status: Chronic Progress Note Narrative Ongoing follow-up of patient seen bedside. This is day 7 of her admission. Discussed case with psychiatry. Patient is compliant with PO medication transition to Coumadin from Heparin, she has had available drug information sheet to augment her understanding, and is aware that this medication is a medication she will need to take for the rest of her life. I will continue to follow. Rosalio Jacinto PhD June 15, 2016 12:18
[2016-06-15] MEDS: cefTRIAXone INJ 2,000 MG in SODIUM CHLORIDE 0.9% INJ 100 ML IV SCH (15:13)
[2016-06-15] MEDS: WARFARIN SOD 5 MG TAB PO SCH (15:15)
[2016-06-15] MEDS ORDERED: WARFARIN SOD 2.5 MG TAB PO SCH (16:00)
[2016-06-15] MEDS: SODIUM CHLOR 0.9% 1000 ML INJ 1,000 ML IV SCH (19:18)
--- NOTE | 2016-06-15 23:24 | PD.ONC.PN ---
Subjective Subjective Remarks on heparin GTT and Coumadin no dyspnea, cough or hemoptysis no LE pain Objective Data Date Time Temp Pulse Resp B/P Pulse Ox O2 Delivery O2 Flow Rate FiO2 06/15/16 20:12 Nasal Cannula 4.00 06/15/16 16:20 97.7 66 18 110/79 99 06/15/16 12:30 96.9 70 18 118/70 98 06/15/16 11:03 96 Nasal Cannula 2.00 06/15/16 08:19 96.9 79 18 106/58 99 06/15/16 04:45 97.9 62 18 106/56 100 06/15/16 01:00 96.7 66 17 106/63 100 06/15/16 06/15/16 06/15/16 07:00 15:00 23:00 Intake Total 598 ml 1860 ml 156 ml Output Total 8 ml Balance 590 ml 1860 ml 156 ml Result Diagram: 06/14/16 0715 06/12/16 0440 Laboratory Results Laboratory Tests Test 06/15/16 06:55 Prothrombin Time 10.1 SEC Prothromb Time International 0.9 RATIO Ratio Activated Partial 44.2 SEC Thromboplast Time Administered Medications Medications (Trade) Dose Ordered Sig/Nimo Route PRN Reason Start Time Stop Time Status Last Admin Dose Admin Heparin Sodium (Porcine) 2500 units 2,500 units UNSCH PRN IV APTT 25 TO 39 06/08/16 10:15 06/12/16 14:27 Heparin Sodium/ Dextrose 250 ml @ 0 mls/hr TITRATE IV 06/08/16 04:15 06/15/16 18:34 Sodium Chloride (NS 1000 ml Inj) 1,000 ml @ 30 mls/hr Q24H IV 06/08/16 05:02 06/13/16 20:56 Miscellaneous Information 1 Q361D XX 06/08/16 05:15 06/08/16 05:15 Chlorhexidine Gluconate Taper DAILY@04 TOP 06/09/16 04:00 06/05/17 03:59 06/12/16 03:46 Ceftriaxone Sodium/Sodium Chloride (Rocephin Inj/NS Inj) 100 ml @ 200 mls/hr Q24H IV 06/10/16 15:00 06/17/16 15:00 06/15/16 15:13 Warfarin Sodium (Coumadin) 5 mg DAILY@1600 PO 06/14/16 16:00 06/15/16 15:15 Objective Remarks GENERAL: nad SKIN: Warm and dry. NECK: Supple, trachea midline. No JVD or lymphadenopathy. LYMPHATIC: No adenopathy. CARDIOVASCULAR: Regular rate and rhythm without murmurs. RESPIRATORY: Breath sounds equal bilaterally. No accessory muscle use. GASTROINTESTINAL: Abdomen soft, non-tender, nondistended. EXTREMITIES: No cyanosis, or edema. Assessment/Plan Problem List: (1) Saddle embolus of pulmonary artery Status: Acute Plan: --on heparin gtt bridge to coumadin --Saddle embolus and nonocclusive thrombus in the posterior tibial vein. --refused TPA. --hypercoagulable w/u pending. Assessment 40y/o female with acute pulmonary embolism and lower extremity thrombosis. history of paranoid schizophrenia, as well as elective mutism. homelessness Plan 1. daily CBC/INR 2. Continue heparin GTT until INR > 2 for at least 48 hours Problem Qualifiers (1) Saddle embolus of pulmonary artery: Qualified Code: I26.92 - Acute saddle pulmonary embolism without acute cor pulmonale To Sullivan MD June 15, 2016 23:24
[2016-06-16] VITALS (7 sets, daily range): BP systolic 93–114; BP diastolic 57–59; PULSE 57–68; RESP 16–18; TEMP 96.6–98.5; O2SAT 98–100
[2016-06-16] MEDS: CHLORHEXIDINE GLUCONATE 2 % 1 PACK (2 CLOTHS) TOP SCH ×2 (00:36→20:28)
[2016-06-16] MEDS ORDERED: diphenhydrAMINE HCL 25 MG CAP PO ONE (02:30)
[2016-06-16 06:47] LABS: APTT (PATIENT) 44.8 SEC (24.3-30.1)
[2016-06-16 07:06] LABS: PROTHROMBIN TIME - PATIENT 10.5 SEC (9.8-11.6)
[2016-06-16] MEDS: LACTULOSE SYRUP 20 GM/30 ML CUP PO SCH (09:00)
--- NOTE | 2016-06-16 10:34 | HHI.PR ---
Subjective Remarks resting comfortably with no distress. denies pain. no sob. had some itching earlier. d/w the RN. Objective Vitals Vital Signs Date Time Temp Pulse Resp B/P Pulse Ox O2 Delivery O2 Flow Rate FiO2 06/16/16 08:00 96.6 58 16 114/59 100 06/16/16 04:30 96.9 57 17 93/57 98 06/16/16 00:25 96.8 63 17 99/58 100 06/15/16 20:45 97.0 62 17 93/62 97 06/15/16 20:12 Nasal Cannula 4.00 06/15/16 16:20 97.7 66 18 110/79 99 06/15/16 12:30 96.9 70 18 118/70 98 06/15/16 11:03 96 Nasal Cannula 2.00 I/O 06/15/16 06/15/16 06/15/16 06/16/16 06/16/16 06/16/16 07:00 15:00 23:00 07:00 15:00 23:00 Intake Total 598 ml 1860 ml 396 ml 240 ml Output Total 8 ml Balance 590 ml 1860 ml 396 ml 240 ml Intake Oral 480 ml 1860 ml 240 ml 240 ml IV Total 118 ml 156 ml Output Urine Total 8 ml # Voids 4 1 2 # Bowel Movements 2 3 2 0 Result Diagram: 06/14/16 0715 06/12/16 0440 Imaging Last Impressions Lower Extremity Ultrasound 06/11/16 0000 Signed Impressions: Service Date/Time: Saturday, June 11, 2016 08:14 - CONCLUSION: 1. Nonocclusive thrombus in the posterior tibial vein otherwise patent system. Dax Nagel MD Head CT 06/08/16 0000 Signed Impressions: Service Date/Time: Wednesday, June 08, 2016 03:31 - CONCLUSION: Normal examination for a patient of this age. Loc Ram MD Chest X-Ray 06/08/16 0000 Signed Impressions: Service Date/Time: Wednesday, June 08, 2016 02:04 - CONCLUSION: No acute disease. Loc Ram MD CT Angiography 06/08/16 0000 Signed Impressions: Service Date/Time: Wednesday, June 08, 2016 03:35 - CONCLUSION: 1. Diffuse bilateral pulmonary emboli with a prominent saddle embolus at the bifurcation of the main right and left pulmonary arteries. 2. No acute pulmonary infiltrates. Loc Ram MD Objective Remarks GENERAL: This is a well-nourished, well-developed patient, in no apparent distress. CARDIOVASCULAR: Regular rate and regular rhythm without murmurs, gallops, or rubs. RESPIRATORY: Clear to auscultation. Breath sounds equal bilaterally. No wheezes , rales, or rhonchi. GASTROINTESTINAL: Abdomen soft, non-tender, nondistended. Normal, active bowel sounds MUSCULOSKELETAL: Extremities without clubbing, cyanosis, or edema. NEURO: Alert & Oriented x4 to person, place, time, situation. Moves all ext x4 Procedures None Medications and IVs Current Medications Sodium Chloride (NS 500 ml Inj) 500 ml @ 500 mls/hr BOLUS ONCE IV Last administered on 06/08/16 01:13; Start 06/08/16 at 00:15; Stop 06/08/16 at 01:14 ; Status DC Iohexol (Omnipaque 350 Inj) 75 ml STK-MED ONCE IV Last administered on 03:55; Start 06/08/16 at 03:55; Stop 06/08/16 at 03:56; Status DC Heparin Sodium (Porcine) (Heparin Inj) 6,000 units ONCE ONCE IV Last administered on 06/08/16 04:29; Start 06/08/16 at 04:15; Stop 06/08/16 at 04:16 ; Status DC Heparin Sodium (Porcine) (Heparin Inj) 5,000 units UNSCH PRN IV APTT LESS THAN 25; Start 06/08/16 at 10:15 Heparin Sodium (Porcine) 2500 units 2,500 units UNSCH PRN IV APTT 25 TO 39 Last administered on 06/12/16 14:27; Start 06/08/16 at 10:15 Heparin Sodium/ Dextrose 250 ml @ 0 mls/hr TITRATE IV Last administered on 18:34; Start 06/08/16 at 04:15 Sodium Chloride (NS 1000 ml Inj) 1,000 ml @ 30 mls/hr Q24H IV Last administered on 06/13/16 20:56; Start 06/08/16 at 05:02 Acetaminophen (Tylenol) 650 mg Q6H PRN PO PAIN 1-10 AND/OR FEVER >101F; Start 06/08/16 at 05:15 Pantoprazole Sodium (Protonix) 40 mg DAILY PO ; Start 06/08/16 at 09:00; Stop at 11:03; Status DC Ondansetron HCl (Zofran Inj) 4 mg Q6H PRN IV NAUSEA OR VOMITING; Start at 05:15 Lactulose (Lactulose Liq) 30 ml DAILY PO ; Start 06/08/16 at 09:00 Albuterol/ Ipratropium (Duoneb Neb) 1 ampule Q4HR NEB PRN INH WHEEZING Last administered on 06/08/16 05:28; Start 06/08/16 at 05:15 Miscellaneous Information 1 Q361D XX Last administered on 06/08/16 05:15; Start 06/08/16 at 05:15 Chlorhexidine Gluconate (Chlorhexidine 2% Cloth) Taper DAILY@04 TOP Last administered on 06/12/16 03:46; Start 06/09/16 at 04:00; Stop 06/05/17 at 03:59 Chlorhexidine Gluconate (Chlorhexidine 2% Cloth) 3 pack UNSCH PRN TOP HYGIENIC CARE; Start 06/08/16 at 05:15 Nitrofurantoin Macrocrystals 100 mg 100 mg BIDPC PO ; Start 06/10/16 at 18:00; Stop 06/10/16 at 18:00; Status DC Ceftriaxone Sodium/Sodium Chloride (Rocephin Inj/NS Inj) 100 ml @ 200 mls/hr Q24H IV Last administered on 06/15/16 15:13; Start 06/10/16 at 15:00; Stop 06/17 at 15:00 Warfarin Sodium 5 mg 5 mg DAILY@1600 PO Last administered on 06/15/16 15:15; Start 06/14/16 at 16:00 Pharmacy Profile Note (Coumadin Consult Pharmacy) 0 ml @ 0 mls/hr UNSCH OTHER ; Start 06/14/16 at 09:15 Diphenhydramine HCl (Benadryl) 50 mg ONCE ONCE PO Last administered on 21:10; Start 06/14/16 at 21:00; Stop 06/14/16 at 21:01; Status DC Sodium Chloride ([place]) 2 spray Q4H PRN EACH NARE NASAL CONGESTION; Start 06/14/16 at 21:00 Warfarin Sodium (Coumadin) 2.5 mg ONCE PO Last administered on 06/15/16 15:15; Start 06/15/16 at 16:00; Stop 06/15/16 at 21:00; Status DC Diphenhydramine HCl (Benadryl) 25 mg ONCE ONCE PO Last administered on 02:32; Start 06/16/16 at 02:30; Stop 06/16/16 at 02:31; Status DC Warfarin Sodium (Coumadin) 4 mg ONCE PO ; Start 06/16/16 at 16:00; Stop 06/16/16 at 21:00 A/P Assessment and Plan A/P (1) Saddle embolus of pulmonary artery Patient offered TPA however this was declined by the patient. Patient been treated by heparin drip PE protocol. Continue with coumadin and IV heparin drip; will dc heparin drip when INR > 2. hematology following. needs indefinite anticoagulation. d/w the pharmacist today. (2) Acute respiratory failure-resolved. [place] supplemental oxygen to keep oxygen saturation more than 92%. (3) Elective mutism Neuropsychology following Patient is nonverbal communicates only by nodding head or writing. psych consult appreciated. (4) Paranoid schizophrenia, in remission psych consult as noted above. (5) Elevated troponin I Cardiac enzymes elevated secondary to PE. Troponins trending down. (6) Right ventricular dilation Endocardium showed EF of 55-60%, no regional wall motion abnormality, IV dilation. Disease likely secondary to PE. (7) UTI (urinary tract infection) Continue Rocephin. Discharge Planning when INR is therapeutic. case management consulted to assist with dc planning. Teodoro Pritchett MD June 16, 2016 10:34
--- NOTE | 2016-06-16 12:25 | HHI.PR ---
Neuropsych Progress Notes/Response to Tx Contents of Sessions: Adjustment Time with Patient: 30 minutes Premorbid psychological status Premorbid Cognitive, Emotional and Behavioral Status: Tenuous. The patient has chronic schizophrenia and is elective mute. She has no family, and has been chronically homeless. Substance abuse history includes tobacco dependence. Behavioral Reactions of Patient and Family/Support System: Unstable. The patient is homeless and has no family. Emotional/Behavioral Status of Patient and Family/Support System: Unstable. Pertinent issues, if appropriate to this patients clinical care, are described in detail above. Maximizing acute care outcome It is recommended that the patient be monitored for emergent behavioral issues throughout her hospital stay, for which I will follow daily and closely to facilitate an optimal medical outcome. Anticipated Problems Ongoing areas of concern will include behavioral refusal, lack of insight and judgment, which will likely be an ongoing struggle throughout her stay. Treatment Plan This clinician will continue to follow with you throughout the course of this patients acute care treatment, The goals of neuropsychological intervention shall be both educational and supportive as is deemed clinically appropriate as well as to facilitate compliance. Impression This is a 40 year old woman who was found with a significant who is now hospitalized and requires anticoagulation treatment in order to maintain her health. Placed in context, this patient has been homeless for presumably many years, denies past psychiatric treatment, but who presents with elective mutism , where by she only communicates with writing. In order to differentiate, Elective mutism was defined as a refusal to speak in almost all social situations (despite normal ability to do so), while selective mutism is considered to be a failure to speak in specific situations and is strongly associated with social anxiety disorder. During this extended interview, Ms. Pan was clearly able to voice occasional words, although she denied being able to do so. Consequently, all questions asked of Ms. Pan by this examiner were answered by Ms. Pan through written expression. Neurobehavioral examination results reveal a woman of at least average intelligence based on her vocabulary and sentence structure, who is alert, oriented x 4, with normal attention, memory and complex reasoning skills, and who is free from florid psychotic symptoms and who denies suicidal or homicidal ideation or intent. She clearly was able to demonstrate understanding of the medical decisions being offered to her, ask appropriate questions of this examiner and her treating physician and she was clearly able to make decisions based on her understanding. 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 She likely has had psychiatric treatment in the past, but she chose not to report such treatment when asked. Diagnosis: (1) Elective mutism Status: Chronic (2) Paranoid schizophrenia, in remission Status: Chronic Progress Note Narrative Ongoing follow-up of patient seen bedside. The patient continues to be compliant, accepting the transition from Heparin to PO coumadin. Nursing staff report no complaints. Provided education concerning the patient's neurobehavioral challenges to nursing staff to help them to help her. I will continue to follow. Rosalio Jacinto PhD June 16, 2016 12:25
[2016-06-16] MEDS: diphenhydrAMINE HCL 25 MG CAP PO PRN ×2 (14:28→22:12)
[2016-06-16] MEDS: cefTRIAXone INJ 2,000 MG in SODIUM CHLORIDE 0.9% INJ 100 ML IV SCH (14:28)
[2016-06-16] MEDS: WARFARIN SOD 5 MG TAB PO SCH (15:44)
[2016-06-16 15:52] LABS: THROMBIN TIME FOR LA ND sec (13-19)
[2016-06-16] MEDS ORDERED: WARFARIN SOD 4 MG TAB PO SCH (16:00)
[2016-06-16] MEDS: HEPARIN-D5W INJ 250 ML IV SCH (18:17)
[2016-06-16] MEDS: SODIUM CHLOR 0.9% 1000 ML INJ 1,000 ML IV SCH (19:18)
--- NOTE | 2016-06-16 23:37 | PD.ONC.PN ---
Subjective Subjective Remarks seen earlier in the day no dyspnea/no hemoptysis, no LE edema responds to questions by writing on piece of paper. Objective Data Date Time Temp Pulse Resp B/P Pulse Ox O2 Delivery O2 Flow Rate FiO2 06/16/16 20:30 98.5 67 17 103/58 98 06/16/16 18:10 Nasal Cannula 3.00 06/16/16 16:00 97.5 68 18 109/58 100 06/16/16 13:46 98 Nasal Cannula 3.00 06/16/16 12:00 97.3 68 18 108/57 98 06/16/16 08:00 96.6 58 16 114/59 100 06/16/16 04:30 96.9 57 17 93/57 98 06/16/16 00:25 96.8 63 17 99/58 100 06/16/16 06/16/16 06/16/16 07:00 15:00 23:00 Intake Total 240 ml 750 ml 360 ml Balance 240 ml 750 ml 360 ml Result Diagram: 06/14/16 0715 06/12/16 0440 Laboratory Results Laboratory Tests Test 06/16/16 05:30 Prothrombin Time 10.5 SEC Prothromb Time International 1.0 RATIO Ratio Activated Partial 44.8 SEC Thromboplast Time Administered Medications Medications (Trade) Dose Ordered Sig/Nimo Route PRN Reason Start Time Stop Time Status Last Admin Dose Admin Heparin Sodium (Porcine) 2500 units 2,500 units UNSCH PRN IV APTT 25 TO 39 06/08/16 10:15 06/12/16 14:27 Heparin Sodium/ Dextrose 250 ml @ 0 mls/hr TITRATE IV 06/08/16 04:15 06/16/16 18:17 Sodium Chloride (NS 1000 ml Inj) 1,000 ml @ 30 mls/hr Q24H IV 06/08/16 05:02 06/13/16 20:56 Miscellaneous Information 1 Q361D XX 06/08/16 05:15 06/08/16 05:15 Chlorhexidine Gluconate Taper DAILY@04 TOP 06/09/16 04:00 06/05/17 03:59 06/12/16 03:46 Ceftriaxone Sodium/Sodium Chloride (Rocephin Inj/NS Inj) 100 ml @ 200 mls/hr Q24H IV 06/10/16 15:00 06/17/16 15:00 06/16/16 14:28 Warfarin Sodium (Coumadin) 5 mg DAILY@1600 PO 06/14/16 16:00 06/16/16 15:44 Diphenhydramine HCl (Benadryl) 25 mg Q8H PRN PO FOR ITCHING 06/16/16 13:00 06/16/16 22:12 Objective Remarks GENERAL: nad SKIN: Warm and dry. NECK: Supple, trachea midline. No JVD or lymphadenopathy. LYMPHATIC: No adenopathy. CARDIOVASCULAR: Regular rate and rhythm without murmurs. RESPIRATORY: Breath sounds equal bilaterally. No accessory muscle use. GASTROINTESTINAL: Abdomen soft, non-tender, nondistended. EXTREMITIES: No cyanosis, or edema. Assessment/Plan Problem List: (1) Saddle embolus of pulmonary artery Status: Acute Plan: --on heparin gtt bridge to coumadin --Saddle embolus and nonocclusive thrombus in the posterior tibial vein. --refused TPA. --hypercoagulable w/u pending. Assessment 40y/o female with acute pulmonary embolism and lower extremity thrombosis. history of paranoid schizophrenia, as well as elective mutism. homelessness Plan 1. daily CBC/INR 2. INT still subtherapeutic, Continue heparin GTT until INR > 2 for at least 48 hours. Continue Coumadin 5mg po daily Problem Qualifiers (1) Saddle embolus of pulmonary artery: Qualified Code: I26.92 - Acute saddle pulmonary embolism without acute cor pulmonale To Sullivan MD June 16, 2016 23:37
[2016-06-17] VITALS (7 sets, daily range): BP systolic 100–144; BP diastolic 51–79; PULSE 62–72; RESP 17–20; TEMP 96.8–98; O2SAT 97–100
[2016-06-17] MEDS: diphenhydrAMINE HCL 25 MG CAP PO PRN (06:16)
[2016-06-17 06:55] LABS: HEMATOCRIT 39.2 % (35.0-46.0); MEAN CELL VOLUME 86.5 FL (80.0-100.0); MEAN CORPUSCULAR HGB CONC 33.5 % (32.0-36.0); PLATELET COUNT 331 TH/MM3 (150-450); RED BLOOD COUNT 4.53 MIL/MM3 (4.00-5.30); RED CELL DISTRIBUTION WIDTH 14.3 % (11.6-17.2); REVIEW FLAG FINAL; WHITE BLOOD COUNT 11.2 TH/MM3 (4.0-11.0)
[2016-06-17 06:57] LABS: APTT (PATIENT) 38.3 SEC (24.3-30.1); PROTHROMBIN TIME - PATIENT 10.6 SEC (9.8-11.6)
[2016-06-17 07:52] LABS: PHOSPHATIDYLSERINE AB IGA LESS THAN 20.0 U/mL (()); PHOSPHATIDYLSERINE AB IGM LESS THAN 25.0 U/mL (())
--- NOTE | 2016-06-17 08:29 | HHI.PR ---
Subjective Remarks resting comfortably with no distress. no chest pain or sob. compliant with coumadin. d/w the RN. Objective Vitals Vital Signs Date Time Temp Pulse Resp B/P Pulse Ox O2 Delivery O2 Flow Rate FiO2 06/17/16 04:30 96.8 67 17 100/59 98 06/17/16 00:35 97.7 70 17 105/59 99 06/16/16 20:30 98.5 67 17 103/58 98 06/16/16 18:10 Nasal Cannula 3.00 06/16/16 16:00 97.5 68 18 109/58 100 06/16/16 13:46 98 Nasal Cannula 3.00 06/16/16 12:00 97.3 68 18 108/57 98 I/O 06/16/16 06/16/16 06/16/16 06/17/16 06/17/16 06/17/16 07:00 15:00 23:00 07:00 15:00 23:00 Intake Total 240 ml 750 ml 360 ml 360 ml Balance 240 ml 750 ml 360 ml 360 ml Intake Oral 240 ml 750 ml 360 ml 360 ml # Voids 2 4 2 2 # Bowel Movements 0 0 2 1 Result Diagram: 06/17/16 0614 Imaging Last Impressions Lower Extremity Ultrasound 06/11/16 0000 Signed Impressions: Service Date/Time: Saturday, June 11, 2016 08:14 - CONCLUSION: 1. Nonocclusive thrombus in the posterior tibial vein otherwise patent system. Dax Nagel MD Head CT 06/08/16 0000 Signed Impressions: Service Date/Time: Wednesday, June 08, 2016 03:31 - CONCLUSION: Normal examination for a patient of this age. Loc Ram MD Chest X-Ray 06/08/16 0000 Signed Impressions: Service Date/Time: Wednesday, June 08, 2016 02:04 - CONCLUSION: No acute disease. Loc Ram MD CT Angiography 06/08/16 0000 Signed Impressions: Service Date/Time: Wednesday, June 08, 2016 03:35 - CONCLUSION: 1. Diffuse bilateral pulmonary emboli with a prominent saddle embolus at the bifurcation of the main right and left pulmonary arteries. 2. No acute pulmonary infiltrates. Loc Ram MD Objective Remarks GENERAL: This is a well-nourished, well-developed patient, in no apparent distress. CARDIOVASCULAR: Regular rate and regular rhythm without murmurs, gallops, or rubs. RESPIRATORY: Clear to auscultation. Breath sounds equal bilaterally. No wheezes , rales, or rhonchi. GASTROINTESTINAL: Abdomen soft, non-tender, nondistended. Normal, active bowel sounds MUSCULOSKELETAL: Extremities without clubbing, cyanosis, or edema. NEURO: Alert & Oriented x4 to person, place, time, situation. Moves all ext x4 Procedures None Medications and IVs Current Medications Sodium Chloride (NS 500 ml Inj) 500 ml @ 500 mls/hr BOLUS ONCE IV Last administered on 06/08/16 01:13; Start 06/08/16 at 00:15; Stop 06/08/16 at 01:14 ; Status DC Iohexol (Omnipaque 350 Inj) 75 ml STK-MED ONCE IV Last administered on 03:55; Start 06/08/16 at 03:55; Stop 06/08/16 at 03:56; Status DC Heparin Sodium (Porcine) (Heparin Inj) 6,000 units ONCE ONCE IV Last administered on 06/08/16 04:29; Start 06/08/16 at 04:15; Stop 06/08/16 at 04:16 ; Status DC Heparin Sodium (Porcine) (Heparin Inj) 5,000 units UNSCH PRN IV APTT LESS THAN 25; Start 06/08/16 at 10:15 Heparin Sodium (Porcine) 2500 units 2,500 units UNSCH PRN IV APTT 25 TO 39 Last administered on 06/12/16 14:27; Start 06/08/16 at 10:15 Heparin Sodium/ Dextrose 250 ml @ 0 mls/hr TITRATE IV Last administered on 18:17; Start 06/08/16 at 04:15 Sodium Chloride (NS 1000 ml Inj) 1,000 ml @ 30 mls/hr Q24H IV Last administered on 06/13/16 20:56; Start 06/08/16 at 05:02 Acetaminophen (Tylenol) 650 mg Q6H PRN PO PAIN 1-10 AND/OR FEVER >101F; Start 06/08/16 at 05:15 Pantoprazole Sodium (Protonix) 40 mg DAILY PO ; Start 06/08/16 at 09:00; Stop at 11:03; Status DC Ondansetron HCl (Zofran Inj) 4 mg Q6H PRN IV NAUSEA OR VOMITING; Start at 05:15 Lactulose (Lactulose Liq) 30 ml DAILY PO ; Start 06/08/16 at 09:00 Albuterol/ Ipratropium (Duoneb Neb) 1 ampule Q4HR NEB PRN INH WHEEZING Last administered on 06/08/16 05:28; Start 06/08/16 at 05:15 Miscellaneous Information 1 Q361D XX Last administered on 06/08/16 05:15; Start 06/08/16 at 05:15 Chlorhexidine Gluconate (Chlorhexidine 2% Cloth) Taper DAILY@04 TOP Last administered on 06/12/16 03:46; Start 06/09/16 at 04:00; Stop 06/05/17 at 03:59 Chlorhexidine Gluconate (Chlorhexidine 2% Cloth) 3 pack UNSCH PRN TOP HYGIENIC CARE; Start 06/08/16 at 05:15 Nitrofurantoin Macrocrystals 100 mg 100 mg BIDPC PO ; Start 06/10/16 at 18:00; Stop 06/10/16 at 18:00; Status DC Ceftriaxone Sodium/Sodium Chloride (Rocephin Inj/NS Inj) 100 ml @ 200 mls/hr Q24H IV Last administered on 06/16/16 14:28; Start 06/10/16 at 15:00; Stop 06/17 at 15:00 Warfarin Sodium 5 mg 5 mg DAILY@1600 PO Last administered on 06/16/16 15:44; Start 06/14/16 at 16:00 Pharmacy Profile Note (Coumadin Consult Pharmacy) 0 ml @ 0 mls/hr UNSCH OTHER ; Start 06/14/16 at 09:15 Diphenhydramine HCl (Benadryl) 50 mg ONCE ONCE PO Last administered on 21:10; Start 06/14/16 at 21:00; Stop 06/14/16 at 21:01; Status DC Sodium Chloride ([place] Osmin [place]) 2 spray Q4H PRN EACH NARE NASAL CONGESTION; Start 06/14/16 at 21:00 Warfarin Sodium (Coumadin) 2.5 mg ONCE PO Last administered on 06/15/16 15:15; Start 06/15/16 at 16:00; Stop 06/15/16 at 21:00; Status DC Diphenhydramine HCl (Benadryl) 25 mg ONCE ONCE PO Last administered on 02:32; Start 06/16/16 at 02:30; Stop 06/16/16 at 02:31; Status DC Warfarin Sodium (Coumadin) 4 mg ONCE PO ; Start 06/16/16 at 16:00; Stop 06/16/16 at 21:00; Status DC Diphenhydramine HCl (Benadryl) 25 mg Q8H PRN PO FOR ITCHING Last administered on 06/17/16 06:16; Start 06/16/16 at 13:00 A/P Assessment and Plan A/P (1) Saddle embolus of pulmonary artery Patient offered TPA however this was declined by the patient. Patient been treated by heparin drip PE protocol. Continue with coumadin and IV heparin drip; will dc heparin drip when INR > 2. hematology following. needs indefinite anticoagulation. d/w today. (2) Acute respiratory failure-resolved. [place] supplemental oxygen to keep oxygen saturation more than 92%. (3) Elective mutism Neuropsychology following Patient is nonverbal communicates only by nodding head or writing. psych consult appreciated. (4) Paranoid schizophrenia, in remission psych consult as noted above. (5) Elevated troponin I Cardiac enzymes elevated secondary to PE. Troponins trending down. (6) Right ventricular dilation Endocardium showed EF of 55-60%, no regional wall motion abnormality, IV dilation. Disease likely secondary to PE. (7) UTI (urinary tract infection) treated with Rocephin. Discharge Planning when INR is therapeutic. case management consulted to assist with dc planning. Teodoro Pritchett MD June 17, 2016 08:29
[2016-06-17] MEDS: LACTULOSE SYRUP 20 GM/30 ML CUP PO SCH (08:48)
[2016-06-17] MEDS: HEPARIN-D5W INJ 250 ML IV SCH (10:34)
--- NOTE | 2016-06-17 13:18 | HHI.PR ---
Neuropsych Progress Notes/Response to Tx Contents of Sessions: Adjustment Time with Patient: 15 minutes Premorbid psychological status Premorbid Cognitive, Emotional and Behavioral Status: Tenuous. The patient has chronic schizophrenia and is elective mute. She has no family, and has been chronically homeless. Substance abuse history includes tobacco dependence. Behavioral Reactions of Patient and Family/Support System: Unstable. The patient is homeless and has no family. Emotional/Behavioral Status of Patient and Family/Support System: Unstable. Pertinent issues, if appropriate to this patients clinical care, are described in detail above. Maximizing acute care outcome It is recommended that the patient be monitored for emergent behavioral issues throughout her hospital stay, for which I will follow daily and closely to facilitate an optimal medical outcome. Anticipated Problems Ongoing areas of concern will include behavioral refusal, lack of insight and judgment, which will likely be an ongoing struggle throughout her stay. Treatment Plan This clinician will continue to follow with you throughout the course of this patients acute care treatment, The goals of neuropsychological intervention shall be both educational and supportive as is deemed clinically appropriate as well as to facilitate compliance. Impression This is a 40 year old woman who was found with a significant who is now hospitalized and requires anticoagulation treatment in order to maintain her health. Placed in context, this patient has been homeless for presumably many years, denies past psychiatric treatment, but who presents with elective mutism , where by she only communicates with writing. In order to differentiate, Elective mutism was defined as a refusal to speak in almost all social situations (despite normal ability to do so), while selective mutism is considered to be a failure to speak in specific situations and is strongly associated with social anxiety disorder. During this extended interview, Ms. Pan was clearly able to voice occasional words, although she denied being able to do so. Consequently, all questions asked of Ms. Pan by this examiner were answered by Ms. Pan through written expression. Neurobehavioral examination results reveal a woman of at least average intelligence based on her vocabulary and sentence structure, who is alert, oriented x 4, with normal attention, memory and complex reasoning skills, and who is free from florid psychotic symptoms and who denies suicidal or homicidal ideation or intent. She clearly was able to demonstrate understanding of the medical decisions being offered to her, ask appropriate questions of this examiner and her treating physician and she was clearly able to make decisions based on her understanding. 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 She likely has had psychiatric treatment in the past, but she chose not to report such treatment when asked. Diagnosis: (1) Elective mutism Status: Chronic (2) Paranoid schizophrenia, in remission Status: Chronic Progress Note Narrative Ongoing follow-up of patient seen bedside. Discussion with nursing staff concerning continued care. This is day 9 of her admission. The patient remains compliant with medical directives. She is being transitioned from Heparin to Coumadin. She was told that physical therapy will be working with her to get her out of bed, using the toilet and walking, and she was told that each day she remains in bed she loses 5% of her body strength. She indicated understanding of what she was told, and told me that she would be compliant with this recommendation. I will continue to follow. Rosalio Jacinto PhD June 17, 2016 13:18
[2016-06-17] MEDS ORDERED: WARFARIN SOD 5 MG TAB PO SCH (16:00)
[2016-06-17] MEDS: WARFARIN SOD 5 MG TAB PO SCH (17:22)
[2016-06-17] MEDS: cefTRIAXone INJ 2,000 MG in SODIUM CHLORIDE 0.9% INJ 100 ML IV SCH (17:22)
[2016-06-17 18:58] LABS: APTT (PATIENT) 36.6 SEC (24.3-30.1)
[2016-06-17] MEDS: SODIUM CHLOR 0.9% 1000 ML INJ 1,000 ML IV SCH (19:18)
[2016-06-18] VITALS (7 sets, daily range): BP systolic 99–118; BP diastolic 53–68; PULSE 61–90; RESP 18–22; TEMP 96.3–98.2; O2SAT 96–100
[2016-06-18] MEDS: CHLORHEXIDINE GLUCONATE 2 % 1 PACK (2 CLOTHS) TOP SCH ×2 (00:16→21:07)
--- NOTE | 2016-06-18 00:18 | PD.ONC.PN ---
Subjective Subjective Remarks no dyspnea/no hemoptyses on heprin gtt discussed with Dr. Guallpa Objective Data Date Time Temp Pulse Resp B/P Pulse Ox O2 Delivery O2 Flow Rate FiO2 06/17/16 21:12 97 Nasal Cannula 3.00 06/17/16 20:00 97.3 62 20 144/79 100 06/17/16 19:45 Nasal Cannula 3.00 06/17/16 16:00 98.0 68 18 110/70 97 06/17/16 12:00 98.0 72 18 104/64 98 06/17/16 08:00 98.0 69 18 112/51 99 06/17/16 04:30 96.8 67 17 100/59 98 06/17/16 00:35 97.7 70 17 105/59 99 Result Diagram: 06/17/16 0614 Laboratory Results Laboratory Tests Test 06/17/16 06/17/16 06:14 18:26 White Blood Count 11.2 TH/MM3 Red Blood Count 4.53 MIL/MM3 Hemoglobin 13.1 GM/DL Hematocrit 39.2 % Mean Corpuscular Volume 86.5 FL Mean Corpuscular Hemoglobin 29.0 PG Mean Corpuscular Hemoglobin 33.5 % Concent Red Cell Distribution Width 14.3 % Platelet Count 331 TH/MM3 Mean Platelet Volume 8.5 FL Prothrombin Time 10.6 SEC Prothromb Time International 1.0 RATIO Ratio Activated Partial 38.3 SEC 36.6 SEC Thromboplast Time Culture Results Microbiology Date/Time Procedure Status Source Growth 06/17/16 17:00 Stool Occult Blood (JESUS) - Final Complete Stool Stool HEMOCCULT NEGATIVE Administered Medications Medications (Trade) Dose Ordered Sig/Nimo Route PRN Reason Start Time Stop Time Status Last Admin Dose Admin Heparin Sodium (Porcine) 2500 units 2,500 units UNSCH PRN IV APTT 25 TO 39 06/08/16 10:15 06/12/16 14:27 Heparin Sodium/ Dextrose 250 ml @ 0 mls/hr TITRATE IV 06/08/16 04:15 06/17/16 10:34 Sodium Chloride (NS 1000 ml Inj) 1,000 ml @ 30 mls/hr Q24H IV 06/08/16 05:02 06/13/16 20:56 Miscellaneous Information 1 Q361D XX 06/08/16 05:15 06/08/16 05:15 Chlorhexidine Gluconate (Chlorhexidine 2% Cloth) Taper DAILY@04 TOP 06/09/16 04:00 06/05/17 03:59 06/12/16 03:46 Warfarin Sodium (Coumadin) 5 mg DAILY@1600 PO 06/14/16 16:00 06/17/16 17:22 Diphenhydramine HCl (Benadryl) 25 mg Q8H PRN PO FOR ITCHING 06/16/16 13:00 06/17/16 06:16 Objective Remarks GENERAL: nad SKIN: Warm and dry. LYMPHATIC: No adenopathy. CARDIOVASCULAR: Regular rate and rhythm without murmurs. RESPIRATORY: Breath sounds equal bilaterally. No accessory muscle use. GASTROINTESTINAL: Abdomen soft, non-tender, nondistended. EXTREMITIES: No cyanosis, or edema. Assessment/Plan Problem List: (1) Saddle embolus of pulmonary artery Status: Acute Plan: --on heparin gtt bridge to coumadin --Saddle embolus and nonocclusive thrombus in the posterior tibial vein. --refused TPA. --hypercoagulable w/u pending. Assessment 40y/o female with acute pulmonary embolism and lower extremity thrombosis. history of paranoid schizophrenia, as well as elective mutism. homelessness Plan 1. daily CBC/INR 2. Continue heparin GTT until INR > 2 for at least 48 hours. Continue Coumadin 5mg po daily. May have to give extra 2.5mg dose tomorrow if INR not up 3. Case management to assist with o/p PCP setup/f/u Problem Qualifiers (1) Saddle embolus of pulmonary artery: Qualified Code: I26.92 - Acute saddle pulmonary embolism without acute cor pulmonale To Sullivan MD June 18, 2016 00:18
[2016-06-18] MEDS: HEPARIN-D5W INJ 250 ML IV SCH ×2 (00:52→14:46)
[2016-06-18 04:55] LABS: APTT (PATIENT) 50.4 SEC (24.3-30.1); PROTHROMBIN TIME - PATIENT 11.6 SEC (9.8-11.6)
[2016-06-18] MEDS: LACTULOSE SYRUP 20 GM/30 ML CUP PO SCH (07:20)
--- NOTE | 2016-06-18 09:14 | HHI.PR ---
Subjective Remarks resting comfortably with no distress. compliant withe medical treatment. no sob. Objective Vitals Vital Signs Date Time Temp Pulse Resp B/P Pulse Ox O2 Delivery O2 Flow Rate FiO2 06/18/16 04:00 96.8 67 20 107/62 98 06/18/16 00:00 97.8 90 22 104/53 100 06/17/16 21:12 97 Nasal Cannula 3.00 06/17/16 20:00 97.3 62 20 144/79 100 06/17/16 19:45 Nasal Cannula 3.00 06/17/16 16:00 98.0 68 18 110/70 97 06/17/16 12:00 98.0 72 18 104/64 98 I/O 06/17/16 06/17/16 06/17/16 06/18/16 06/18/16 06/18/16 07:00 15:00 23:00 07:00 15:00 23:00 Intake Total 360 ml 750 ml 780 ml 780 ml Balance 360 ml 750 ml 780 ml 780 ml Intake Oral 360 ml 750 ml 780 ml 780 ml # Voids 2 4 2 2 # Bowel Movements 1 1 1 1 Result Diagram: 06/17/16 0614 Imaging Last Impressions Lower Extremity Ultrasound 06/11/16 0000 Signed Impressions: Service Date/Time: Saturday, June 11, 2016 08:14 - CONCLUSION: 1. Nonocclusive thrombus in the posterior tibial vein otherwise patent system. Dax Nagel MD Head CT 06/08/16 0000 Signed Impressions: Service Date/Time: Wednesday, June 08, 2016 03:31 - CONCLUSION: Normal examination for a patient of this age. Loc Ram MD Chest X-Ray 06/08/16 0000 Signed Impressions: Service Date/Time: Wednesday, June 08, 2016 02:04 - CONCLUSION: No acute disease. Loc Ram MD CT Angiography 06/08/16 0000 Signed Impressions: Service Date/Time: Wednesday, June 08, 2016 03:35 - CONCLUSION: 1. Diffuse bilateral pulmonary emboli with a prominent saddle embolus at the bifurcation of the main right and left pulmonary arteries. 2. No acute pulmonary infiltrates. Loc Ram MD Objective Remarks GENERAL: This is a well-nourished, well-developed patient, in no apparent distress. CARDIOVASCULAR: Regular rate and regular rhythm without murmurs, gallops, or rubs. RESPIRATORY: Clear to auscultation. Breath sounds equal bilaterally. No wheezes , rales, or rhonchi. GASTROINTESTINAL: Abdomen soft, non-tender, nondistended. Normal, active bowel sounds MUSCULOSKELETAL: Extremities without clubbing, cyanosis, or edema. NEURO: Alert & Oriented x4 to person, place, time, situation. Moves all ext x4 Procedures None Medications and IVs Current Medications Sodium Chloride (NS 500 ml Inj) 500 ml @ 500 mls/hr BOLUS ONCE IV Last administered on 06/08/16 01:13; Start 06/08/16 at 00:15; Stop 06/08/16 at 01:14 ; Status DC Iohexol (Omnipaque 350 Inj) 75 ml STK-MED ONCE IV Last administered on 03:55; Start 06/08/16 at 03:55; Stop 06/08/16 at 03:56; Status DC Heparin Sodium (Porcine) (Heparin Inj) 6,000 units ONCE ONCE IV Last administered on 06/08/16 04:29; Start 06/08/16 at 04:15; Stop 06/08/16 at 04:16 ; Status DC Heparin Sodium (Porcine) (Heparin Inj) 5,000 units UNSCH PRN IV APTT LESS THAN 25; Start 06/08/16 at 10:15 Heparin Sodium (Porcine) 2500 units 2,500 units UNSCH PRN IV APTT 25 TO 39 Last administered on 06/12/16 14:27; Start 06/08/16 at 10:15 Heparin Sodium/ Dextrose 250 ml @ 0 mls/hr TITRATE IV Last administered on 00:52; Start 06/08/16 at 04:15 Sodium Chloride (NS 1000 ml Inj) 1,000 ml @ 30 mls/hr Q24H IV Last administered on 06/13/16 20:56; Start 06/08/16 at 05:02 Acetaminophen (Tylenol) 650 mg Q6H PRN PO PAIN 1-10 AND/OR FEVER >101F; Start 06/08/16 at 05:15 Pantoprazole Sodium (Protonix) 40 mg DAILY PO ; Start 06/08/16 at 09:00; Stop at 11:03; Status DC Ondansetron HCl (Zofran Inj) 4 mg Q6H PRN IV NAUSEA OR VOMITING; Start at 05:15 Lactulose (Lactulose Liq) 30 ml DAILY PO ; Start 06/08/16 at 09:00 Albuterol/ Ipratropium (Duoneb Neb) 1 ampule Q4HR NEB PRN INH WHEEZING Last administered on 06/08/16 05:28; Start 06/08/16 at 05:15 Miscellaneous Information 1 Q361D XX Last administered on 06/08/16 05:15; Start 06/08/16 at 05:15 Chlorhexidine Gluconate (Chlorhexidine 2% Cloth) Taper DAILY@04 TOP Last administered on 06/12/16 03:46; Start 06/09/16 at 04:00; Stop 06/05/17 at 03:59 Chlorhexidine Gluconate (Chlorhexidine 2% Cloth) 3 pack UNSCH PRN TOP HYGIENIC CARE; Start 06/08/16 at 05:15 Nitrofurantoin Macrocrystals 100 mg 100 mg BIDPC PO ; Start 06/10/16 at 18:00; Stop 06/10/16 at 18:00; Status DC Ceftriaxone Sodium/Sodium Chloride (Rocephin Inj/NS Inj) 100 ml @ 200 mls/hr Q24H IV Last administered on 06/17/16 17:22; Start 06/10/16 at 15:00; Stop 06/17 at 15:00; Status DC Warfarin Sodium 5 mg 5 mg DAILY@1600 PO Last administered on 06/17/16 17:22; Start 06/14/16 at 16:00; Stop 06/18/16 at 08:37; Status DC Pharmacy Profile Note (Coumadin Consult Pharmacy) 0 ml @ 0 mls/hr UNSCH OTHER ; Start 06/14/16 at 09:15 Diphenhydramine HCl (Benadryl) 50 mg ONCE ONCE PO Last administered on 21:10; Start 06/14/16 at 21:00; Stop 06/14/16 at 21:01; Status DC Sodium Chloride ([place] Osmin [place]) 2 spray Q4H PRN EACH NARE NASAL CONGESTION; Start 06/14/16 at 21:00 Warfarin Sodium (Coumadin) 2.5 mg ONCE PO Last administered on 06/15/16 15:15; Start 06/15/16 at 16:00; Stop 06/15/16 at 21:00; Status DC Diphenhydramine HCl (Benadryl) 25 mg ONCE ONCE PO Last administered on 02:32; Start 06/16/16 at 02:30; Stop 06/16/16 at 02:31; Status DC Warfarin Sodium (Coumadin) 4 mg ONCE PO ; Start 06/16/16 at 16:00; Stop 06/16/16 at 21:00; Status DC Diphenhydramine HCl (Benadryl) 25 mg Q8H PRN PO FOR ITCHING Last administered on 06/17/16 06:16; Start 06/16/16 at 13:00 Warfarin Sodium (Coumadin) 5 mg ONCE PO ; Start 06/17/16 at 16:00; Stop 06/17/16 at 21:00; Status DC Warfarin Sodium (Coumadin) 10 mg DAILY@1600 PO ; Start 06/18/16 at 16:00 Patient Medication Teaching (Coumadin Booklet) 1 ONCE ONCE .XX ; Start 06/18/16 at 16:00; Stop 06/18/16 at 16:01 A/P Assessment and Plan A/P (1) Saddle embolus of pulmonary artery Patient offered TPA however this was declined by the patient. Patient been treated by heparin drip PE protocol. Continue with coumadin and IV heparin drip; will dc heparin drip when INR > 2. hematology following- previously d/w . needs indefinite anticoagulation. d/w the patient again today regarding the compliance with the medical treatment and INR monitoring; she understood and agreed. (2) Acute respiratory failure-resolved. [place] supplemental oxygen to keep oxygen saturation more than 92%. (3) Elective mutism Neuropsychology following Patient is nonverbal communicates only by nodding head or writing. psych consult appreciated. (4) Paranoid schizophrenia, in remission psych consult as noted above. (5) Elevated troponin I Cardiac enzymes elevated secondary to PE. Troponins trending down. (6) Right ventricular dilation Endocardium showed EF of 55-60%, no regional wall motion abnormality, IV dilation. Disease likely secondary to PE. (7) UTI (urinary tract infection) treated with Rocephin. Discharge Planning when INR is therapeutic. case management consulted to assist with dc planning. Teodoro Pritchett MD June 18, 2016 09:14
[2016-06-18 10:04] LABS: APTT (PATIENT) 45.8 SEC (24.3-30.1)
[2016-06-18] MEDS: WARFARIN SOD 10 MG TAB PO SCH (16:35)
[2016-06-18] MEDS: SODIUM CHLOR 0.9% 1000 ML INJ 1,000 ML IV SCH (17:12)
[2016-06-19] VITALS: BP 118/68; PULSE 68; RESP 20; TEMP 98.2; O2SAT 98
[2016-06-19 03:22] VITALS: BP 118/68; PULSE 68; RESP 22; TEMP 98.2; O2SAT 96
[2016-06-19] MEDS: HEPARIN-D5W INJ 250 ML IV SCH ×2 (03:32→19:14)
[2016-06-19] MEDS: diphenhydrAMINE HCL 25 MG CAP PO PRN ×2 (05:12→16:57)
[2016-06-19 05:26] LABS: APTT (PATIENT) 63.3 SEC (24.3-30.1); INTERNATIONAL NORMALIZED RATIO 1.2 RATIO; PROTHROMBIN TIME - PATIENT 13.8 SEC (9.8-11.6)
[2016-06-19 08:00] VITALS: BP 108/55; PULSE 60; RESP 18; TEMP 97.2; O2SAT 100
--- NOTE | 2016-06-19 08:42 | HHI.PR ---
Subjective Remarks resting comfortably with no distress. no sob or pain. d/w the RN. Objective Vitals Vital Signs Date Time Temp Pulse Resp B/P Pulse Ox O2 Delivery O2 Flow Rate FiO2 06/19/16 03:22 98.2 68 22 118/68 96 06/19/16 00:00 98.2 68 20 118/68 98 06/18/16 22:16 Nasal Cannula 2.00 06/18/16 22:05 97.5 66 22 104/65 99 06/18/16 18:58 Nasal Cannula 3.00 06/18/16 15:57 97.2 66 18 99/66 99 06/18/16 11:25 97.3 70 18 111/59 99 06/18/16 10:47 96 Nasal Cannula 3.00 I/O 06/18/16 06/18/16 06/18/16 06/19/16 06/19/16 06/19/16 07:00 15:00 23:00 07:00 15:00 23:00 Intake Total 780 ml 1200 ml 1568 ml 145 ml Balance 780 ml 1200 ml 1568 ml 145 ml Intake Oral 780 ml 1200 ml 720 ml IV Total 848 ml 145 ml # Voids 2 4 8 # Bowel Movements 1 2 1 Result Diagram: 06/17/16 0614 Imaging Last Impressions Lower Extremity Ultrasound 06/11/16 0000 Signed Impressions: Service Date/Time: Saturday, June 11, 2016 08:14 - CONCLUSION: 1. Nonocclusive thrombus in the posterior tibial vein otherwise patent system. Dax Nagel MD Head CT 06/08/16 0000 Signed Impressions: Service Date/Time: Wednesday, June 08, 2016 03:31 - CONCLUSION: Normal examination for a patient of this age. Loc Ram MD Chest X-Ray 06/08/16 0000 Signed Impressions: Service Date/Time: Wednesday, June 08, 2016 02:04 - CONCLUSION: No acute disease. Loc Ram MD CT Angiography 06/08/16 0000 Signed Impressions: Service Date/Time: Wednesday, June 08, 2016 03:35 - CONCLUSION: 1. Diffuse bilateral pulmonary emboli with a prominent saddle embolus at the bifurcation of the main right and left pulmonary arteries. 2. No acute pulmonary infiltrates. Loc Ram MD Objective Remarks GENERAL: This is a well-nourished, well-developed patient, in no apparent distress. CARDIOVASCULAR: Regular rate and regular rhythm without murmurs, gallops, or rubs. RESPIRATORY: Clear to auscultation. Breath sounds equal bilaterally. No wheezes , rales, or rhonchi. GASTROINTESTINAL: Abdomen soft, non-tender, nondistended. Normal, active bowel sounds MUSCULOSKELETAL: Extremities without clubbing, cyanosis, or edema. NEURO: Alert & Oriented x4 to person, place, time, situation. Moves all ext x4 Procedures None Medications and IVs Current Medications Sodium Chloride (NS 500 ml Inj) 500 ml @ 500 mls/hr BOLUS ONCE IV Last administered on 06/08/16 01:13; Start 06/08/16 at 00:15; Stop 06/08/16 at 01:14 ; Status DC Iohexol (Omnipaque 350 Inj) 75 ml STK-MED ONCE IV Last administered on 03:55; Start 06/08/16 at 03:55; Stop 06/08/16 at 03:56; Status DC Heparin Sodium (Porcine) (Heparin Inj) 6,000 units ONCE ONCE IV Last administered on 06/08/16 04:29; Start 06/08/16 at 04:15; Stop 06/08/16 at 04:16 ; Status DC Heparin Sodium (Porcine) (Heparin Inj) 5,000 units UNSCH PRN IV APTT LESS THAN 25; Start 06/08/16 at 10:15 Heparin Sodium (Porcine) 2500 units 2,500 units UNSCH PRN IV APTT 25 TO 39 Last administered on 06/12/16 14:27; Start 06/08/16 at 10:15 Heparin Sodium/ Dextrose 250 ml @ 0 mls/hr TITRATE IV Last administered on 03:32; Start 06/08/16 at 04:15 Sodium Chloride (NS 1000 ml Inj) 1,000 ml @ 30 mls/hr Q24H IV Last administered on 06/13/16 20:56; Start 06/08/16 at 05:02 Acetaminophen (Tylenol) 650 mg Q6H PRN PO PAIN 1-10 AND/OR FEVER >101F; Start 06/08/16 at 05:15 Pantoprazole Sodium (Protonix) 40 mg DAILY PO ; Start 06/08/16 at 09:00; Stop at 11:03; Status DC Ondansetron HCl (Zofran Inj) 4 mg Q6H PRN IV NAUSEA OR VOMITING; Start at 05:15 Lactulose (Lactulose Liq) 30 ml DAILY PO ; Start 06/08/16 at 09:00 Albuterol/ Ipratropium (Duoneb Neb) 1 ampule Q4HR NEB PRN INH WHEEZING Last administered on 06/08/16 05:28; Start 06/08/16 at 05:15 Miscellaneous Information 1 Q361D XX Last administered on 06/08/16 05:15; Start 06/08/16 at 05:15 Chlorhexidine Gluconate (Chlorhexidine 2% Cloth) Taper DAILY@04 TOP Last administered on 06/12/16 03:46; Start 06/09/16 at 04:00; Stop 06/05/17 at 03:59 Chlorhexidine Gluconate (Chlorhexidine 2% Cloth) 3 pack UNSCH PRN TOP HYGIENIC CARE; Start 06/08/16 at 05:15 Nitrofurantoin Macrocrystals 100 mg 100 mg BIDPC PO ; Start 06/10/16 at 18:00; Stop 06/10/16 at 18:00; Status DC Ceftriaxone Sodium/Sodium Chloride (Rocephin Inj/NS Inj) 100 ml @ 200 mls/hr Q24H IV Last administered on 06/17/16 17:22; Start 06/10/16 at 15:00; Stop 06/17 at 15:00; Status DC Warfarin Sodium 5 mg 5 mg DAILY@1600 PO Last administered on 06/17/16 17:22; Start 06/14/16 at 16:00; Stop 06/18/16 at 08:37; Status DC Pharmacy Profile Note (Coumadin Consult Pharmacy) 0 ml @ 0 mls/hr UNSCH OTHER ; Start 06/14/16 at 09:15 Diphenhydramine HCl (Benadryl) 50 mg ONCE ONCE PO Last administered on 21:10; Start 06/14/16 at 21:00; Stop 06/14/16 at 21:01; Status DC Sodium Chloride ([place]) 2 spray Q4H PRN EACH NARE NASAL CONGESTION; Start 06/14/16 at 21:00 Warfarin Sodium (Coumadin) 2.5 mg ONCE PO Last administered on 06/15/16 15:15; Start 06/15/16 at 16:00; Stop 06/15/16 at 21:00; Status DC Diphenhydramine HCl (Benadryl) 25 mg ONCE ONCE PO Last administered on 02:32; Start 06/16/16 at 02:30; Stop 06/16/16 at 02:31; Status DC Warfarin Sodium (Coumadin) 4 mg ONCE PO ; Start 06/16/16 at 16:00; Stop 06/16/16 at 21:00; Status DC Diphenhydramine HCl (Benadryl) 25 mg Q8H PRN PO FOR ITCHING Last administered on 06/19/16 05:12; Start 06/16/16 at 13:00 Warfarin Sodium (Coumadin) 5 mg ONCE PO ; Start 06/17/16 at 16:00; Stop 06/17/16 at 21:00; Status DC Warfarin Sodium (Coumadin) 10 mg DAILY@1600 PO Last administered on 06/18/16 16 :35; Start 06/18/16 at 16:00 Patient Medication Teaching (Coumadin Booklet) 1 ONCE ONCE .XX Last administered on 06/18/16 16:36; Start 06/18/16 at 16:00; Stop 06/18/16 at 16:01; Status DC A/P Assessment and Plan A/P (1) Saddle embolus of pulmonary artery Patient offered TPA however this was declined by the patient. Patient been treated by heparin drip PE protocol. Continue with coumadin and IV heparin drip; will dc heparin drip when INR > 2. hematology following- previously d/w . needs indefinite anticoagulation. previously d/w the patient regarding the compliance with the anticoagulation with coumadin; she understood and agreed. (2) Acute respiratory failure-resolved. [place] supplemental oxygen to keep oxygen saturation more than 92%. (3) Elective mutism Neuropsychology following Patient is nonverbal communicates only by nodding head or writing. psych consult appreciated. (4) Paranoid schizophrenia, in remission psych consult as noted above. (5) Elevated troponin I Cardiac enzymes elevated secondary to PE. Troponins trending down. (6) Right ventricular dilation Endocardium showed EF of 55-60%, no regional wall motion abnormality, IV dilation. Disease likely secondary to PE. (7) UTI (urinary tract infection) treated with Rocephin. Discharge Planning when INR is therapeutic. case management consulted to assist with dc planning. Teodoro Pritchett MD June 19, 2016 08:42
[2016-06-19] MEDS: LACTULOSE SYRUP 20 GM/30 ML CUP PO SCH (09:00)
[2016-06-19 12:00] VITALS: BP 105/55; PULSE 65; RESP 18; TEMP 96; O2SAT 99
[2016-06-19 16:00] VITALS: BP 106/63; PULSE 61; RESP 18; TEMP 97.1; O2SAT 99
[2016-06-19] MEDS: WARFARIN SOD 10 MG TAB PO SCH (16:31)
[2016-06-19] MEDS: SODIUM CHLOR 0.9% 1000 ML INJ 1,000 ML IV SCH (19:18)
[2016-06-19 20:35] VITALS: BP 111/60; PULSE 71; RESP 17; TEMP 97.9; O2SAT 98
[2016-06-20] VITALS (7 sets, daily range): BP systolic 94–118; BP diastolic 53–75; PULSE 62–70; RESP 16–17; TEMP 96.9–98.6; O2SAT 96–100
[2016-06-20] MEDS: CHLORHEXIDINE GLUCONATE 2 % 1 PACK (2 CLOTHS) TOP SCH (04:00)
[2016-06-20 05:49] LABS: HEMATOCRIT 36.4 % (35.0-46.0); MEAN CELL VOLUME 86.6 FL (80.0-100.0); MEAN CORPUSCULAR HEMOGLOBIN 29.5 PG (27.0-34.0); PLATELET COUNT 292 TH/MM3 (150-450); RED BLOOD COUNT 4.21 MIL/MM3 (4.00-5.30); RED CELL DISTRIBUTION WIDTH 15.2 % (11.6-17.2); REVIEW FLAG FINAL; WHITE BLOOD COUNT 12.5 TH/MM3 (4.0-11.0)
[2016-06-20 06:00] LABS: APTT (PATIENT) 75.5 SEC (24.3-30.1); INTERNATIONAL NORMALIZED RATIO 1.6 RATIO; PROTHROMBIN TIME - PATIENT 18.3 SEC (9.8-11.6)
--- NOTE | 2016-06-20 08:26 | HHI.PR ---
Subjective Remarks resting comfortably with no distress. denies pain although she says that she has some sob with walking. no other complaints. Objective Vitals Vital Signs Date Time Temp Pulse Resp B/P Pulse Ox O2 Delivery O2 Flow Rate FiO2 06/20/16 07:46 98.6 62 17 103/53 100 06/20/16 04:35 96.9 64 17 94/55 100 06/20/16 00:30 97.0 62 17 98/56 96 06/19/16 20:35 97.9 71 17 111/60 98 06/19/16 20:30 Nasal Cannula 2.00 06/19/16 16:00 97.1 61 18 106/63 99 06/19/16 12:00 96.0 65 18 105/55 99 06/19/16 09:22 Nasal Cannula 2.00 I/O 06/19/16 06/19/16 06/19/16 06/20/16 06/20/16 06/20/16 07:00 15:00 23:00 07:00 15:00 23:00 Intake Total 145 ml 1200 ml 240 ml 240 ml Balance 145 ml 1200 ml 240 ml 240 ml Intake Oral 1200 ml 240 ml 240 ml IV Total 145 ml # Voids 7 1 4 # Bowel Movements 1 1 0 Result Diagram: 06/20/16 0522 Imaging Last Impressions Lower Extremity Ultrasound 06/11/16 0000 Signed Impressions: Service Date/Time: Saturday, June 11, 2016 08:14 - CONCLUSION: 1. Nonocclusive thrombus in the posterior tibial vein otherwise patent system. Dax Nagel MD Head CT 06/08/16 0000 Signed Impressions: Service Date/Time: Wednesday, June 08, 2016 03:31 - CONCLUSION: Normal examination for a patient of this age. Loc Ram MD Chest X-Ray 06/08/16 0000 Signed Impressions: Service Date/Time: Wednesday, June 08, 2016 02:04 - CONCLUSION: No acute disease. Loc Ram MD CT Angiography 06/08/16 0000 Signed Impressions: Service Date/Time: Wednesday, June 08, 2016 03:35 - CONCLUSION: 1. Diffuse bilateral pulmonary emboli with a prominent saddle embolus at the bifurcation of the main right and left pulmonary arteries. 2. No acute pulmonary infiltrates. Loc Ram MD Objective Remarks GENERAL: This is a well-nourished, well-developed patient, in no apparent distress. CARDIOVASCULAR: Regular rate and regular rhythm without murmurs, gallops, or rubs. RESPIRATORY: Clear to auscultation. Breath sounds equal bilaterally. No wheezes , rales, or rhonchi. GASTROINTESTINAL: Abdomen soft, non-tender, nondistended. Normal, active bowel sounds MUSCULOSKELETAL: Extremities without clubbing, cyanosis, or edema. NEURO: Alert & Oriented x4 to person, place, time, situation. Moves all ext x4 Procedures None Medications and IVs Current Medications Sodium Chloride (NS 500 ml Inj) 500 ml @ 500 mls/hr BOLUS ONCE IV Last administered on 06/08/16 01:13; Start 06/08/16 at 00:15; Stop 06/08/16 at 01:14 ; Status DC Iohexol (Omnipaque 350 Inj) 75 ml STK-MED ONCE IV Last administered on 03:55; Start 06/08/16 at 03:55; Stop 06/08/16 at 03:56; Status DC Heparin Sodium (Porcine) (Heparin Inj) 6,000 units ONCE ONCE IV Last administered on 06/08/16 04:29; Start 06/08/16 at 04:15; Stop 06/08/16 at 04:16 ; Status DC Heparin Sodium (Porcine) (Heparin Inj) 5,000 units UNSCH PRN IV APTT LESS THAN 25; Start 06/08/16 at 10:15 Heparin Sodium (Porcine) 2500 units 2,500 units UNSCH PRN IV APTT 25 TO 39 Last administered on 06/12/16 14:27; Start 06/08/16 at 10:15 Heparin Sodium/ Dextrose 250 ml @ 0 mls/hr TITRATE IV Last administered on 19:14; Start 06/08/16 at 04:15 Sodium Chloride (NS 1000 ml Inj) 1,000 ml @ 30 mls/hr Q24H IV Last administered on 06/13/16 20:56; Start 06/08/16 at 05:02 Acetaminophen (Tylenol) 650 mg Q6H PRN PO PAIN 1-10 AND/OR FEVER >101F; Start 06/08/16 at 05:15 Pantoprazole Sodium (Protonix) 40 mg DAILY PO ; Start 06/08/16 at 09:00; Stop at 11:03; Status DC Ondansetron HCl (Zofran Inj) 4 mg Q6H PRN IV NAUSEA OR VOMITING; Start at 05:15 Lactulose (Lactulose Liq) 30 ml DAILY PO ; Start 06/08/16 at 09:00 Albuterol/ Ipratropium (Duoneb Neb) 1 ampule Q4HR NEB PRN INH WHEEZING Last administered on 06/08/16 05:28; Start 06/08/16 at 05:15 Miscellaneous Information 1 Q361D XX Last administered on 06/08/16 05:15; Start 06/08/16 at 05:15 Chlorhexidine Gluconate (Chlorhexidine 2% Cloth) Taper DAILY@04 TOP Last administered on 06/12/16 03:46; Start 06/09/16 at 04:00; Stop 06/05/17 at 03:59 Chlorhexidine Gluconate (Chlorhexidine 2% Cloth) 3 pack UNSCH PRN TOP HYGIENIC CARE; Start 06/08/16 at 05:15 Nitrofurantoin Macrocrystals 100 mg 100 mg BIDPC PO ; Start 06/10/16 at 18:00; Stop 06/10/16 at 18:00; Status DC Ceftriaxone Sodium/Sodium Chloride (Rocephin Inj/NS Inj) 100 ml @ 200 mls/hr Q24H IV Last administered on 06/17/16 17:22; Start 06/10/16 at 15:00; Stop 06/17 at 15:00; Status DC Warfarin Sodium 5 mg 5 mg DAILY@1600 PO Last administered on 06/17/16 17:22; Start 06/14/16 at 16:00; Stop 06/18/16 at 08:37; Status DC Pharmacy Profile Note (Coumadin Consult Pharmacy) 0 ml @ 0 mls/hr UNSCH OTHER ; Start 06/14/16 at 09:15 Diphenhydramine HCl (Benadryl) 50 mg ONCE ONCE PO Last administered on 21:10; Start 06/14/16 at 21:00; Stop 06/14/16 at 21:01; Status DC Sodium Chloride ([place]) 2 spray Q4H PRN EACH NARE NASAL CONGESTION; Start 06/14/16 at 21:00 Warfarin Sodium (Coumadin) 2.5 mg ONCE PO Last administered on 06/15/16 15:15; Start 06/15/16 at 16:00; Stop 06/15/16 at 21:00; Status DC Diphenhydramine HCl (Benadryl) 25 mg ONCE ONCE PO Last administered on 02:32; Start 06/16/16 at 02:30; Stop 06/16/16 at 02:31; Status DC Warfarin Sodium (Coumadin) 4 mg ONCE PO ; Start 06/16/16 at 16:00; Stop 06/16/16 at 21:00; Status DC Diphenhydramine HCl (Benadryl) 25 mg Q8H PRN PO FOR ITCHING Last administered on 06/19/16 16:57; Start 06/16/16 at 13:00 Warfarin Sodium (Coumadin) 5 mg ONCE PO ; Start 06/17/16 at 16:00; Stop 06/17/16 at 21:00; Status DC Warfarin Sodium (Coumadin) 10 mg DAILY@1600 PO Last administered on 06/19/16 16 :31; Start 06/18/16 at 16:00; Stop 06/20/16 at 07:50; Status DC Patient Medication Teaching (Coumadin Booklet) 1 ONCE ONCE .XX Last administered on 06/18/16 16:36; Start 06/18/16 at 16:00; Stop 06/18/16 at 16:01; Status DC Warfarin Sodium (Coumadin) 7.5 mg DAILY@16 PO ; Start 06/20/16 at 16:00 A/P Assessment and Plan A/P (1) Saddle embolus of pulmonary artery Patient offered TPA however this was declined by the patient. Patient been treated by heparin drip PE protocol. Continue with coumadin and IV heparin drip; will dc heparin drip when INR > 2. hematology following- previously d/w . needs indefinite anticoagulation. previously d/w the patient regarding the compliance with the anticoagulation with coumadin; she understood and agreed. INR is trending up. (2) Acute respiratory failure-resolved. [place] supplemental oxygen to keep oxygen saturation more than 92%. walk test today. (3) Elective mutism Neuropsychology following Patient is nonverbal communicates only by nodding head or writing. psych consult appreciated. (4) Paranoid schizophrenia, in remission psych consult as noted above. (5) Elevated troponin Cardiac enzymes elevated secondary to PE. (6) Right ventricular dilation Endocardium showed EF of 55-60%, no regional wall motion abnormality, IV dilation. Disease likely secondary to PE. (7) UTI (urinary tract infection) treated with Rocephin. Discharge Planning when INR is therapeutic. case management consulted to assist with dc planning. expected to be discharged within the next 48 hrs. walk test today. Teodoro Pritchett MD June 20, 2016 08:26
[2016-06-20] MEDS ORDERED: COUM5TAB PO (08:27)
[2016-06-20] MEDS: diphenhydrAMINE HCL 25 MG CAP PO PRN (09:03)
[2016-06-20] MEDS: HEPARIN-D5W INJ 250 ML IV SCH ×2 (09:06→22:46)
[2016-06-20] MEDS: LACTULOSE SYRUP 20 GM/30 ML CUP PO SCH (09:06)
--- NOTE | 2016-06-20 11:54 | HHI.PR ---
Neuropsych Progress Notes/Response to Tx Contents of Sessions: Adjustment Time with Patient: 15 minutes Premorbid psychological status Premorbid Cognitive, Emotional and Behavioral Status: Tenuous. The patient has chronic schizophrenia and is elective mute. She has no family, and has been chronically homeless. Substance abuse history includes tobacco dependence. Behavioral Reactions of Patient and Family/Support System: Unstable. The patient is homeless and has no family. Emotional/Behavioral Status of Patient and Family/Support System: Unstable. Pertinent issues, if appropriate to this patients clinical care, are described in detail above. Maximizing acute care outcome It is recommended that the patient be monitored for emergent behavioral issues throughout her hospital stay, for which I will follow daily and closely to facilitate an optimal medical outcome. Anticipated Problems Ongoing areas of concern will include behavioral refusal, lack of insight and judgment, which will likely be an ongoing struggle throughout her stay. Treatment Plan This clinician will continue to follow with you throughout the course of this patients acute care treatment, The goals of neuropsychological intervention shall be both educational and supportive as is deemed clinically appropriate as well as to facilitate compliance. Impression This is a 40 year old woman who was found with a significant who is now hospitalized and requires anticoagulation treatment in order to maintain her health. Placed in context, this patient has been homeless for presumably many years, denies past psychiatric treatment, but who presents with elective mutism , where by she only communicates with writing. In order to differentiate, Elective mutism was defined as a refusal to speak in almost all social situations (despite normal ability to do so), while selective mutism is considered to be a failure to speak in specific situations and is strongly associated with social anxiety disorder. During this extended interview, Ms. Pan was clearly able to voice occasional words, although she denied being able to do so. Consequently, all questions asked of Ms. Pan by this examiner were answered by Ms. Pan through written expression. Neurobehavioral examination results reveal a woman of at least average intelligence based on her vocabulary and sentence structure, who is alert, oriented x 4, with normal attention, memory and complex reasoning skills, and who is free from florid psychotic symptoms and who denies suicidal or homicidal ideation or intent. She clearly was able to demonstrate understanding of the medical decisions being offered to her, ask appropriate questions of this examiner and her treating physician and she was clearly able to make decisions based on her understanding. 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 She likely has had psychiatric treatment in the past, but she chose not to report such treatment when asked. Diagnosis: (1) Elective mutism Status: Chronic (2) Paranoid schizophrenia, in remission Status: Chronic Progress Note Narrative Ongoing follow-up of patient who was seen bedside. This is day 11 post admission. The patient is compliant with medical directives, has been getting OOB and walking the halls. NAD. There is an expectation that she will discharge within 48 hours as she has met goals for her pharmacological therapy. I will continue to follow. Rosalio Jacinto PhD June 20, 2016 11:54
[2016-06-20] MEDS ORDERED: WARFARIN SOD 7.5 MG TAB PO SCH (16:00)
[2016-06-20] MEDS: SODIUM CHLOR 0.9% 1000 ML INJ 1,000 ML IV SCH (19:18)
[2016-06-21 00:30] VITALS: BP 102/56; PULSE 69; RESP 16; TEMP 96.1; O2SAT 98
[2016-06-21] MEDS: CHLORHEXIDINE GLUCONATE 2 % 1 PACK (2 CLOTHS) TOP SCH (04:00)
[2016-06-21 08:00] VITALS: BP 102/73; PULSE 65; RESP 19; TEMP 96.3; O2SAT 100
[2016-06-21] MEDS: LACTULOSE SYRUP 20 GM/30 ML CUP PO SCH (09:00)
--- NOTE | 2016-06-21 10:53 | HHI.PR ---
Subjective Remarks in no distress. denies chest pain or sob. no new complaints. d/w the RN. Objective Vitals Vital Signs Date Time Temp Pulse Resp B/P Pulse Ox O2 Delivery O2 Flow Rate FiO2 06/21/16 08:00 96.3 65 19 102/73 100 06/21/16 00:30 96.1 69 16 102/56 98 06/20/16 20:15 97.7 66 16 100/62 99 06/20/16 20:00 99 Nasal Cannula 2.00 06/20/16 16:00 97.6 70 17 118/75 98 06/20/16 11:36 97.3 70 17 110/59 100 I/O 06/20/16 06/20/16 06/20/16 06/21/16 06/21/16 06/21/16 07:00 15:00 23:00 07:00 15:00 23:00 Intake Total 240 ml 600 ml 1037 ml 609 ml Balance 240 ml 600 ml 1037 ml 609 ml Intake Oral 240 ml 600 ml 720 ml 480 ml IV Total 317 ml 129 ml # Voids 4 4 3 2 # Bowel Movements 0 1 0 0 Result Diagram: 06/20/16 0522 Imaging Last Impressions Lower Extremity Ultrasound 06/11/16 0000 Signed Impressions: Service Date/Time: Saturday, June 11, 2016 08:14 - CONCLUSION: 1. Nonocclusive thrombus in the posterior tibial vein otherwise patent system. Dax Nagel MD Head CT 06/08/16 0000 Signed Impressions: Service Date/Time: Wednesday, June 08, 2016 03:31 - CONCLUSION: Normal examination for a patient of this age. Loc Ram MD Chest X-Ray 06/08/16 0000 Signed Impressions: Service Date/Time: Wednesday, June 08, 2016 02:04 - CONCLUSION: No acute disease. Loc Ram MD CT Angiography 06/08/16 0000 Signed Impressions: Service Date/Time: Wednesday, June 08, 2016 03:35 - CONCLUSION: 1. Diffuse bilateral pulmonary emboli with a prominent saddle embolus at the bifurcation of the main right and left pulmonary arteries. 2. No acute pulmonary infiltrates. Loc Ram MD Objective Remarks GENERAL: This is a well-nourished, well-developed patient, in no apparent distress. CARDIOVASCULAR: Regular rate and regular rhythm without murmurs, gallops, or rubs. RESPIRATORY: Clear to auscultation. Breath sounds equal bilaterally. No wheezes , rales, or rhonchi. GASTROINTESTINAL: Abdomen soft, non-tender, nondistended. Normal, active bowel sounds MUSCULOSKELETAL: Extremities without clubbing, cyanosis, or edema. NEURO: Alert & Oriented x4 to person, place, time, situation. Moves all ext x4 Procedures None Medications and IVs Current Medications Sodium Chloride (NS 500 ml Inj) 500 ml @ 500 mls/hr BOLUS ONCE IV Last administered on 06/08/16 01:13; Start 06/08/16 at 00:15; Stop 06/08/16 at 01:14 ; Status DC Iohexol (Omnipaque 350 Inj) 75 ml STK-MED ONCE IV Last administered on 03:55; Start 06/08/16 at 03:55; Stop 06/08/16 at 03:56; Status DC Heparin Sodium (Porcine) (Heparin Inj) 6,000 units ONCE ONCE IV Last administered on 06/08/16 04:29; Start 06/08/16 at 04:15; Stop 06/08/16 at 04:16 ; Status DC Heparin Sodium (Porcine) (Heparin Inj) 5,000 units UNSCH PRN IV APTT LESS THAN 25; Start 06/08/16 at 10:15 Heparin Sodium (Porcine) 2500 units 2,500 units UNSCH PRN IV APTT 25 TO 39 Last administered on 06/12/16 14:27; Start 06/08/16 at 10:15 Heparin Sodium/ Dextrose 250 ml @ 0 mls/hr TITRATE IV Last administered on 22:46; Start 06/08/16 at 04:15 Sodium Chloride (NS 1000 ml Inj) 1,000 ml @ 30 mls/hr Q24H IV Last administered on 06/13/16 20:56; Start 06/08/16 at 05:02 Acetaminophen (Tylenol) 650 mg Q6H PRN PO PAIN 1-10 AND/OR FEVER >101F; Start 06/08/16 at 05:15 Pantoprazole Sodium (Protonix) 40 mg DAILY PO ; Start 06/08/16 at 09:00; Stop at 11:03; Status DC Ondansetron HCl (Zofran Inj) 4 mg Q6H PRN IV NAUSEA OR VOMITING; Start at 05:15 Lactulose (Lactulose Liq) 30 ml DAILY PO ; Start 06/08/16 at 09:00 Albuterol/ Ipratropium (Duoneb Neb) 1 ampule Q4HR NEB PRN INH WHEEZING Last administered on 06/08/16 05:28; Start 06/08/16 at 05:15 Miscellaneous Information 1 Q361D XX Last administered on 06/08/16 05:15; Start 06/08/16 at 05:15 Chlorhexidine Gluconate (Chlorhexidine 2% Cloth) Taper DAILY@04 TOP Last administered on 06/12/16 03:46; Start 06/09/16 at 04:00; Stop 06/05/17 at 03:59 Chlorhexidine Gluconate (Chlorhexidine 2% Cloth) 3 pack UNSCH PRN TOP HYGIENIC CARE; Start 06/08/16 at 05:15 Nitrofurantoin Macrocrystals 100 mg 100 mg BIDPC PO ; Start 06/10/16 at 18:00; Stop 06/10/16 at 18:00; Status DC Ceftriaxone Sodium/Sodium Chloride (Rocephin Inj/NS Inj) 100 ml @ 200 mls/hr Q24H IV Last administered on 06/17/16 17:22; Start 06/10/16 at 15:00; Stop 06/17 at 15:00; Status DC Warfarin Sodium 5 mg 5 mg DAILY@1600 PO Last administered on 06/17/16 17:22; Start 06/14/16 at 16:00; Stop 06/18/16 at 08:37; Status DC Pharmacy Profile Note (Coumadin Consult Pharmacy) 0 ml @ 0 mls/hr UNSCH OTHER ; Start 06/14/16 at 09:15 Diphenhydramine HCl (Benadryl) 50 mg ONCE ONCE PO Last administered on 21:10; Start 06/14/16 at 21:00; Stop 06/14/16 at 21:01; Status DC Sodium Chloride ([place]) 2 spray Q4H PRN EACH NARE NASAL CONGESTION; Start 06/14/16 at 21:00 Warfarin Sodium (Coumadin) 2.5 mg ONCE PO Last administered on 06/15/16 15:15; Start 06/15/16 at 16:00; Stop 06/15/16 at 21:00; Status DC Diphenhydramine HCl (Benadryl) 25 mg ONCE ONCE PO Last administered on 02:32; Start 06/16/16 at 02:30; Stop 06/16/16 at 02:31; Status DC Warfarin Sodium (Coumadin) 4 mg ONCE PO ; Start 06/16/16 at 16:00; Stop 06/16/16 at 21:00; Status DC Diphenhydramine HCl (Benadryl) 25 mg Q8H PRN PO FOR ITCHING Last administered on 06/20/16 09:03; Start 06/16/16 at 13:00 Warfarin Sodium (Coumadin) 5 mg ONCE PO ; Start 06/17/16 at 16:00; Stop 06/17/16 at 21:00; Status DC Warfarin Sodium (Coumadin) 10 mg DAILY@1600 PO Last administered on 06/19/16 16 :31; Start 06/18/16 at 16:00; Stop 06/20/16 at 07:50; Status DC Patient Medication Teaching (Coumadin Booklet) 1 ONCE ONCE .XX Last administered on 06/18/16 16:36; Start 06/18/16 at 16:00; Stop 06/18/16 at 16:01; Status DC Warfarin Sodium (Coumadin) 7.5 mg DAILY@16 PO Last administered on 06/20/16 17: 01; Start 06/20/16 at 16:00 A/P Assessment and Plan A/P (1) Saddle embolus of pulmonary artery Patient offered TPA however this was declined by the patient. Patient been treated by heparin drip PE protocol. Continue with coumadin and IV heparin drip; Continue heparin GTT until INR > 2 for at least 48 hours. evaluated by hematology- previously d/w . previously d/w the patient regarding the compliance with the anticoagulation with coumadin; she understood and agreed. INR is trending up. pharmacy is following. (2) Acute respiratory failure-resolved. [place] supplemental oxygen to keep oxygen saturation more than 92%. walk test performed and she needs home oxygen. (3) Elective mutism Neuropsychology following Patient is nonverbal communicates only by nodding head or writing. psych consult appreciated. (4) Paranoid schizophrenia, in remission psych consult as noted above. (5) Elevated troponin Cardiac enzymes elevated secondary to PE. (6) Right ventricular dilation Endocardium showed EF of 55-60%, no regional wall motion abnormality, IV dilation. Disease likely secondary to PE. (7) UTI (urinary tract infection) treated with Rocephin. Discharge Planning discharge planning will be a challenge since the patient needs home oxygen- with no payor source. possible transfer to [facility] for continuation of care. Teodoro Pritchett MD June 21, 2016 10:53
--- NOTE | 2016-06-21 11:28 | HHI.PR ---
Neuropsych Progress Notes/Response to Tx Contents of Sessions: Adjustment Time with Patient: 15 minutes Premorbid psychological status Premorbid Cognitive, Emotional and Behavioral Status: Tenuous. The patient has chronic schizophrenia and is elective mute. She has no family, and has been chronically homeless. Substance abuse history includes tobacco dependence. Behavioral Reactions of Patient and Family/Support System: Unstable. The patient is homeless and has no family. Emotional/Behavioral Status of Patient and Family/Support System: Unstable. Pertinent issues, if appropriate to this patients clinical care, are described in detail above. Maximizing acute care outcome It is recommended that the patient be monitored for emergent behavioral issues throughout her hospital stay, for which I will follow daily and closely to facilitate an optimal medical outcome. Anticipated Problems Ongoing areas of concern will include behavioral refusal, lack of insight and judgment, which will likely be an ongoing struggle throughout her stay. Treatment Plan This clinician will continue to follow with you throughout the course of this patients acute care treatment, The goals of neuropsychological intervention shall be both educational and supportive as is deemed clinically appropriate as well as to facilitate compliance. Impression This is a 40 year old woman who was found with a significant who is now hospitalized and requires anticoagulation treatment in order to maintain her health. Placed in context, this patient has been homeless for presumably many years, denies past psychiatric treatment, but who presents with elective mutism , where by she only communicates with writing. In order to differentiate, Elective mutism was defined as a refusal to speak in almost all social situations (despite normal ability to do so), while selective mutism is considered to be a failure to speak in specific situations and is strongly associated with social anxiety disorder. During this extended interview, Ms. Pan was clearly able to voice occasional words, although she denied being able to do so. Consequently, all questions asked of Ms. Pan by this examiner were answered by Ms. Pan through written expression. Neurobehavioral examination results reveal a woman of at least average intelligence based on her vocabulary and sentence structure, who is alert, oriented x 4, with normal attention, memory and complex reasoning skills, and who is free from florid psychotic symptoms and who denies suicidal or homicidal ideation or intent. She clearly was able to demonstrate understanding of the medical decisions being offered to her, ask appropriate questions of this examiner and her treating physician and she was clearly able to make decisions based on her understanding. 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 She likely has had psychiatric treatment in the past, but she chose not to report such treatment when asked. Diagnosis: (1) Elective mutism Status: Chronic (2) Paranoid schizophrenia, in remission Status: Chronic Progress Note Narrative Ongoing follow-up of this patient seen bedside. This is day 12 of her hospitalization. She is reporting no distress, and is compliant with medical directives. She is being transitioned to Coumadin, but apparently must remain hospitalized for O2 requirements. This issue was discussed with the patient and she demonstrated understanding and will be compliant with the delay. I will continue to follow to assist with her care. Rosalio Jacinto PhD June 21, 2016 11:28
[2016-06-21 12:00] VITALS: BP 111/67; PULSE 61; RESP 18; TEMP 97.6; O2SAT 98
[2016-06-21 14:02] LABS: INTERNATIONAL NORMALIZED RATIO 2.1 RATIO
[2016-06-21] MEDS: WARFARIN SOD 6 MG TAB PO SCH (16:09)
[2016-06-21] MEDS: HEPARIN-D5W INJ 250 ML IV SCH ×2 (16:18→18:14)
[2016-06-21 16:38] LABS: APTT (PATIENT) 44.6 SEC (24.3-30.1)
[2016-06-21] MEDS: SODIUM CHLOR 0.9% 1000 ML INJ 1,000 ML IV SCH (19:18)
[2016-06-21 20:00] VITALS: BP 115/72; PULSE 67; RESP 20; TEMP 98; O2SAT 98
[2016-06-21 20:31] VITALS: O2SAT 98
[2016-06-22] MEDS: CHLORHEXIDINE GLUCONATE 2 % 1 PACK (2 CLOTHS) TOP SCH (04:00)
[2016-06-22 07:50] LABS: INTERNATIONAL NORMALIZED RATIO 2.2 RATIO; PROTHROMBIN TIME - PATIENT 24.9 SEC (9.8-11.6)
[2016-06-22] MEDS: LACTULOSE SYRUP 20 GM/30 ML CUP PO SCH (07:59)
[2016-06-22 08:00] VITALS: BP 104/67; PULSE 66; RESP 20; TEMP 97; O2SAT 98
[2016-06-22] MEDS ORDERED: ONDANSETRON ODT 4 MG TAB PO PRN (10:30)
[2016-06-22] MEDS ORDERED: LACTULOSE SYRUP 20 GM/30 ML CUP PO PRN (10:30)
--- NOTE | 2016-06-22 10:43 | HHI.PR ---
Subjective Remarks 40-year-old female who is recently presented to hospital because she was found lying on the sidewalk complaining that her chest was pounding. Patient was brought to the hospital for evaluation and CTA didn't indicate a saddle pulmonary emboli with right ventricular dilatation and elevated troponin. Patient was initially admitted to critical care team in which she was managed in the ICU and started on IV heparin. Is recommended the patient undergo TPA administration due to size and location of bone emboli. However patient deferred TPA administration. Patient is an elective mutism patient. Neuropsychiatrist come in and evaluated the patient and followed during her stay in the hospital. Patient was continued on heparin and was started on Coumadin. Patient at this time is therapeutic on Coumadin with INR 2.2. Secondary to the saddle pulmonary emboli patient does have hypoxia. She remains on nasal cannula 2.5 L at this time. Walk study was performed which indicate that she required home oxygen. However patient is homeless and does not have any insurance so the patient is unable to be discharged safely. Patient was transferred down to [place] for continued management due to discharge difficulties. Patient remain in hospital until able to be weaned off oxygen at this time. Objective Vitals Vital Signs Date Time Temp Pulse Resp B/P Pulse Ox O2 Delivery O2 Flow Rate FiO2 06/22/16 08:00 97.0 66 20 104/67 98 06/21/16 20:31 98 Nasal Cannula 2.50 06/21/16 20:00 98.0 67 20 115/72 98 06/21/16 19:00 Nasal Cannula 3.00 06/21/16 12:00 97.6 61 18 111/67 98 I/O 06/21/16 06/21/16 06/21/16 06/22/16 06/22/16 06/22/16 06:59 14:59 22:59 06:59 14:59 22:59 Intake Total 609 ml 1080 ml 360 ml Balance 609 ml 1080 ml 360 ml Intake Oral 480 ml 1080 ml 360 ml IV Total 129 ml # Voids 2 5 1 # Bowel Movements 0 1 0 Result Diagram: 06/20/16 0522 Objective Remarks GENERAL: Well-developed, well-nourished, in no acute distress. alert , elective mutism HEENT: Head is normocephalic without any lesions or masses noted. Facial features are symmetric. Eyes:Extraocular muscles are intact. Conjunctivae were clear. NECK: Supple without any masses. Trachea midline no deviation. No JVD, CARDIAC: Regular rhythm, regular rate. S1/S2 are heard. No murmurs gallops or rubs. LUNGS: Clear to auscultation bilaterally. No wheeze, rhonchi or rales. No use of accessory muscles on inspiration or expiration. ABDOMEN: Soft, nontender. Nondistended. Bowel sounds heard in all 4 quadrants. No organomegaly or masses. Negative rebound, negative guarding EXTREMITIES: No edema, pulses are equal bilaterally. No cyanosis or clubbing NEUROLOGY: Cranial nerves II through XII grossly intact. Moving all extremities , patient is not speaking. She does write on a note pad for communication Procedures None Urinary Catheter: No Vascular Central Line Catheter: No A/P Assessment and Plan Saddle embolus of pulmonary artery Patient offered TPA however this was declined by the patient. Patient was continued on heparin and Coumadin, INR now therapeutic discontinue heparin, continue Coumadin Patient was evaluated by hematology and case was briefly discussed with . Acute hypoxic respiratory failure. Patient still requiring O2 supplementation maintain O2 sats greater than 92% Walk study was performed which indicated patient will require home oxygen Due to patient's outpatient situation she is homeless and does not have insurance and unable to afford or have home oxygen Elective mutism Neuropsychology following Patient continues to remain nonverbal at this time. Does communicate with writing Psychiatry evaluated the patient Paranoid schizophrenia, in remission Psychiatry evaluated patient does not feel that patient is not a danger to self or others Elevated troponin Cardiac enzymes elevated secondary to PE. Right ventricular dilation Echocardiogram showed EF of 55-60%, no regional wall motion abnormality, RV dilation. Likely secondary to saddle emboli Urinary tract infection Urine culture with Klebsiella pneumonia Completed treatment with Rocephin DVT prevention On Coumadin INR is therapeutic Discharge Planning Discharge planning once patient no longer requires oxygen or case management can arrange for outpatient oxygen Steven Mccray June 22, 2016 10:43
[2016-06-22 11:00] VITALS: O2SAT 99
[2016-06-22 15:35] VITALS: O2SAT 98
[2016-06-22] MEDS: WARFARIN SOD 6 MG TAB PO SCH (17:56)
[2016-06-22 20:00] VITALS: BP 109/66; PULSE 75; RESP 20; TEMP 98; O2SAT 98
[2016-06-22 21:35] VITALS: O2SAT 97
[2016-06-23 07:46] LABS: HEMATOCRIT 35.7 % (35.0-46.0); MEAN CELL VOLUME 85.1 FL (80.0-100.0); MEAN CORPUSCULAR HEMOGLOBIN 29.1 PG (27.0-34.0); MEAN CORPUSCULAR HGB CONC 34.2 % (32.0-36.0); PLATELET COUNT 276 TH/MM3 (150-450); RED CELL DISTRIBUTION WIDTH 14.6 % (11.6-17.2); REVIEW FLAG FINAL; WHITE BLOOD COUNT 9.6 TH/MM3 (4.0-11.0)
[2016-06-23 08:00] VITALS: BP 109/72; PULSE 63; RESP 16; TEMP 97.9; O2SAT 97
[2016-06-23 08:01] LABS: INTERNATIONAL NORMALIZED RATIO 2.1 RATIO; PROTHROMBIN TIME - PATIENT 24.3 SEC (9.8-11.6)
--- NOTE | 2016-06-23 08:19 | HHI.PR ---
Neuropsych Progress Notes/Response to Tx Contents of Sessions: Adjustment Time with Patient: 30 minutes Premorbid psychological status Premorbid Cognitive, Emotional and Behavioral Status: Tenuous. The patient has chronic schizophrenia and is elective mute. She has no family, and has been chronically homeless. Substance abuse history includes tobacco dependence. Behavioral Reactions of Patient and Family/Support System: Unstable. The patient is homeless and has no family. Emotional/Behavioral Status of Patient and Family/Support System: Unstable. Pertinent issues, if appropriate to this patients clinical care, are described in detail above. Maximizing acute care outcome It is recommended that the patient be monitored for emergent behavioral issues throughout her hospital stay, for which I will follow daily and closely to facilitate an optimal medical outcome. Anticipated Problems Ongoing areas of concern will include behavioral refusal, lack of insight and judgment, which will likely be an ongoing struggle throughout her stay. Treatment Plan This clinician will continue to follow with you throughout the course of this patients acute care treatment, The goals of neuropsychological intervention shall be both educational and supportive as is deemed clinically appropriate as well as to facilitate compliance. Impression This is a 40 year old woman who was found with a significant who is now hospitalized and requires anticoagulation treatment in order to maintain her health. Placed in context, this patient has been homeless for presumably many years, denies past psychiatric treatment, but who presents with elective mutism , where by she only communicates with writing. In order to differentiate, Elective mutism was defined as a refusal to speak in almost all social situations (despite normal ability to do so), while selective mutism is considered to be a failure to speak in specific situations and is strongly associated with social anxiety disorder. During this extended interview, Ms. Pan was clearly able to voice occasional words, although she denied being able to do so. Consequently, all questions asked of Ms. Pan by this examiner were answered by Ms. Pan through written expression. Neurobehavioral examination results reveal a woman of at least average intelligence based on her vocabulary and sentence structure, who is alert, oriented x 4, with normal attention, memory and complex reasoning skills, and who is free from florid psychotic symptoms and who denies suicidal or homicidal ideation or intent. She clearly was able to demonstrate understanding of the medical decisions being offered to her, ask appropriate questions of this examiner and her treating physician and she was clearly able to make decisions based on her understanding. 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 She likely has had psychiatric treatment in the past, but she chose not to report such treatment when asked. Diagnosis: (1) Elective mutism Status: Chronic (2) Paranoid schizophrenia, in remission Status: Chronic Progress Note Narrative Ongoing follow-up of patient seen at [facility]. This is day 14 post admission. The patient is well known to me from her acute care stay. Please refer to my daily chart notes on this patient since her initial admission. I provided [place] nursing staff general instructions concerning how to manage patient behaviorally, which they were appreciative. Patient seen and she remains compliant and cooperative, and in no apparent distress. PLEASE NOTE THAT IF YOUR STAFF HAS ANY ISSUES WITH THIS PATIENT IN TERMS OF COMPLIANCE WITH MEDICAL DIRECTIVES, PLEASE DO NOT HESITATE TO CONTACT ME THROUGH DR. HINDS I AM HAPPY TO ASSIST YOU. I will continue to follow this patient both by daily chart review and twice weekly visits at your facility until her discharge. Rosalio Jacinto PhD June 23, 2016 08:19
--- NOTE | 2016-06-23 10:22 | HHI.PR ---
Subjective Remarks Patient seen and examined today for follow-up on hypoxia, pulmonary emboli. Patient very doing better she is sitting in room without any oxygen at this time with good O2 saturations. Patient does not indicate that she is having any problems at this time. Objective Vitals Vital Signs Date Time Temp Pulse Resp B/P Pulse Ox O2 Delivery O2 Flow Rate FiO2 06/22/16 21:35 97 Nasal Cannula 1.00 06/22/16 20:00 98.0 75 20 109/66 98 06/22/16 19:00 Nasal Cannula 2.00 06/22/16 15:35 98 Nasal Cannula 2.50 06/22/16 11:00 99 Nasal Cannula 2.50 I/O 06/22/16 06/22/16 06/22/16 06/23/16 06/23/16 06/23/16 06:59 14:59 22:59 06:59 14:59 22:59 Intake Total 360 ml 920 ml 580 ml 580 ml Balance 360 ml 920 ml 580 ml 580 ml Intake Oral 360 ml 920 ml 580 ml 580 ml # Voids 1 3 1 2 # Bowel Movements 0 0 0 0 Result Diagram: 06/23/16 0650 Objective Remarks GENERAL: Well-developed, well-nourished, in no acute distress. alert , elective mutism HEENT: Head is normocephalic without any lesions or masses noted. Facial features are symmetric. Eyes:Extraocular muscles are intact. Conjunctivae were clear. NECK: Supple without any masses. Trachea midline no deviation. No JVD, CARDIAC: Regular rhythm, regular rate. S1/S2 are heard. No murmurs gallops or rubs. LUNGS: Clear to auscultation bilaterally. No wheeze, rhonchi or rales. No use of accessory muscles on inspiration or expiration. ABDOMEN: Soft, nontender. Nondistended. Bowel sounds heard in all 4 quadrants. No organomegaly or masses. Negative rebound, negative guarding EXTREMITIES: No edema, pulses are equal bilaterally. No cyanosis or clubbing NEUROLOGY: Cranial nerves II through XII grossly intact. Moving all extremities , patient is not speaking. She does write on a note pad for communication Procedures None Urinary Catheter: No Vascular Central Line Catheter: No A/P Assessment and Plan Saddle embolus of pulmonary artery Patient offered TPA however this was declined by the patient. discontinued heparin, continue Coumadin Patient was evaluated by hematology and case was briefly discussed with . Acute hypoxic respiratory failure. Patient still requiring O2 supplementation maintain O2 sats greater than 92% Walk study was performed which indicated patient will require home oxygen, continue to recheck walk study every other day Due to patient's outpatient situation she is homeless and does not have insurance and unable to afford or have home oxygen Elective mutism Neuropsychology following Patient continues to remain nonverbal at this time. Does communicate with writing Psychiatry evaluated the patient Paranoid schizophrenia, in remission Psychiatry evaluated patient does not feel that patient is not a danger to self or others Elevated troponin Cardiac enzymes elevated secondary to PE. Right ventricular dilation Echocardiogram showed EF of 55-60%, no regional wall motion abnormality, RV dilation. Likely secondary to saddle emboli Urinary tract infection Urine culture with Klebsiella pneumonia Completed treatment with Rocephin DVT prevention On Coumadin INR is therapeutic Discharge Planning Discharge planning once patient no longer requires oxygen or case management can arrange for outpatient oxygen Steven Mccray June 23, 2016 10:22
[2016-06-23 11:00] VITALS: O2SAT 99
[2016-06-23] MEDS: WARFARIN SOD 6 MG TAB PO SCH (15:03)
[2016-06-23 20:00] VITALS: BP 104/59; PULSE 78; RESP 19; TEMP 97.9; O2SAT 97
[2016-06-23 20:50] VITALS: O2SAT 95
[2016-06-24] MEDS ORDERED: COUM6TAB PO (07:47)
--- NOTE | 2016-06-24 07:48 | HHI.DCPOC ---
Discharge Care Plan Diagnosis: (1) Saddle embolus of pulmonary artery Goals to Promote Your Health * To prevent worsening of your condition and complications * To maintain your health at the optimal level Directions to Meet Your Goals Take your medications as prescribed Follow your dietary instruction Follow activity as directed Keep your appointments as scheduled Take your immunizations and boosters as scheduled If your symptoms worsen call your PCP, if no PCP go to Urgent Care Center or Emergency Room Smoking is Dangerous to Your Health. Avoid second hand smoke Call the 24-hour hour crisis hotline for domestic abuse at Steven Mccray June 24, 2016 07:48
[2016-06-24 08:00] VITALS: BP 127/65; PULSE 57; RESP 17; TEMP 96.9; O2SAT 98
--- NOTE | 2016-06-24 10:07 | HHI.DS ---
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 Brought to ED where CTA revealed saddle pulmonary embolus with RV dilation and elevated troponin, postural hypotension with dizziness. Thrombus has clearly effected cardiac output. Patient will not talk because she is resting her voice. She will nod her head and write notes. She denies any recent surgery or head injury. CBC/BMP: 06/23/16 0650 Significant Findings Laboratory Tests Test 06/21/16 06/22/16 06/23/16 13:35 07:20 06:50 Prothrombin Time 24.0 SEC 24.9 SEC 24.3 SEC (9.8-11.6) (9.8-11.6) (9.8-11.6) Activated Partial 44.6 SEC Thromboplast Time (24.3-30.1) Imaging Last Impressions Lower Extremity Ultrasound 06/11/16 0000 Signed Impressions: Service Date/Time: Saturday, June 11, 2016 08:14 - CONCLUSION: 1. Nonocclusive thrombus in the posterior tibial vein otherwise patent system. Dax Nagel MD Head CT 06/08/16 0000 Signed Impressions: Service Date/Time: Wednesday, June 08, 2016 03:31 - CONCLUSION: Normal examination for a patient of this age. Loc Ram MD Chest X-Ray 06/08/16 0000 Signed Impressions: Service Date/Time: Wednesday, June 08, 2016 02:04 - CONCLUSION: No acute disease. Loc Ram MD CT Angiography 06/08/16 0000 Signed Impressions: Service Date/Time: Wednesday, June 08, 2016 03:35 - CONCLUSION: 1. Diffuse bilateral pulmonary emboli with a prominent saddle embolus at the bifurcation of the main right and left pulmonary arteries. 2. No acute pulmonary infiltrates. Loc Ram MD PE at Discharge GENERAL: Well-developed, well-nourished, in no acute distress. alert , elective mutism HEENT: Head is normocephalic without any lesions or masses noted. Facial features are symmetric. Eyes:Extraocular muscles are intact. Conjunctivae were clear. NECK: Supple without any masses. Trachea midline no deviation. No JVD, CARDIAC: Regular rhythm, regular rate. S1/S2 are heard. No murmurs gallops or rubs. LUNGS: Clear to auscultation bilaterally. No wheeze, rhonchi or rales. No use of accessory muscles on inspiration or expiration. ABDOMEN: Soft, nontender. Nondistended. Bowel sounds heard in all 4 quadrants. No organomegaly or masses. Negative rebound, negative guarding EXTREMITIES: No edema, pulses are equal bilaterally. No cyanosis or clubbing NEUROLOGY: Cranial nerves II through XII grossly intact. Moving all extremities , patient is not speaking. She does write on a note pad for communication Hospital Course 40-year-old female who is recently presented to hospital because she was found lying on the sidewalk complaining that her chest was pounding. Patient was brought to the hospital for evaluation and CTA didn't indicate a saddle pulmonary emboli with right ventricular dilatation and elevated troponin. Patient was initially admitted to critical care team in which she was managed in the ICU and started on IV heparin. Is recommended the patient undergo TPA administration due to size and location of bone emboli. However patient deferred TPA administration. Patient is an elective mutism patient. Neuropsychiatrist come in and evaluated the patient and followed during her stay in the hospital. Patient was continued on heparin and was started on Coumadin. Patient at this time is therapeutic on Coumadin with INR 2.2. Secondary to the saddle pulmonary emboli patient does have hypoxia. She remains on nasal cannula 2.5 L at this time. Walk study was performed which indicate that she required home oxygen. However patient is homeless and does not have any insurance so the patient is unable to be discharged safely. Patient was transferred down to [place] for continued management due to discharge difficulties. Patient remain in hospital until able to be weaned off oxygen at this time. Patient underwent walk study again on 06/23/16 in past it with 95% O2 saturations off oxygen while ambulating. Patient clinically stable this time. Consulted case management to arrange for her to receive her prescriptions prior to leaving the hospital. Also recommending that they arrange her outpatient follow-up with [place] [facility] or monitoring her Coumadin level. Patient is requesting that we can get her transportation back to her place that she was staying. Will plan discharge once arrangements have all been made. Pt Condition on Discharge: Stable Discharge Disposition: Discharge Home Discharge Time: > 30 minutes Discharge Instructions DIET: Follow Instructions for: Heart Healthy Diet Activities you can perform: Regular-No Restrictions Activities to Avoid: Driving for 24 hrs Follow up Referrals: PCP Follow-up - 2-3 Days New Medications: Warfarin (Coumadin) 6 Mg Tab 6 MG PO DAILY@16 Pulmonary emboli Days 30 TAB Additional Information Written by Steven Mccray, acting as scribe for Dr. Michel on 06/24/16 at 14: 33. Steven Mccray June 24, 2016 10:07 Monisha Michel MD June 24, 2016 14:29
== END 2016-06-24 15:40 | disposition home or self-care (01) | DRG 175 ==
LOC: NEPC 22:45 → NEDA 06-08 04:41 → N03B 06-08 05:50 → N06A 06-10 20:29 → PH5A 06-21 17:31
PROVIDERS: ADMIT Surgery Surgical Critical Care; ATTEND Hospitalist
DX: I26.92 Saddle embolus of pulmonary artery without acute cor pulmonale (principal); J96.01 Acute respiratory failure with hypoxia; F20.0 Paranoid schizophrenia; N39.0 Urinary tract infection, site not specified; I82.449 Acute embolism and thrombosis of unspecified tibial vein; F94.0 Selective mutism; B96.1 Klebsiella pneumoniae [K. pneumoniae] as the cause of diseases classified elsewhere; I51.7 Cardiomegaly; Z59.0 Homelessness
CPT/HCPCS: 70450; 71010; 71275; 80048; 81001; 81240; 81241; 81291; 82272; 83090; 83735; 84100; 84484; 85025; 85027; 85300; 85598; 85610; 85613; 85730; 86038; 86146; 86147; 86148; 87077; 87086; 87186; 87641; 93005; 93306; 93970; 94150; 94620; 94664; 96374; 96375; J0696; J1644; J7030; J7040; Q0163; Q9967

== ENCOUNTER 2016-07-01 13:31 | Inpatient (IN) | payer OTHER ==
[2016-07-01] VITALS (7 sets, daily range): BP systolic 106–131; BP diastolic 66–86; PULSE 58–84; RESP 16–18; TEMP 97.2–99.1; O2SAT 95–98
[~2016-07-01] VITALS: Ht 172.7 cm; Wt 116.0 kg
[~2016-07-01 13:31] MED LIST: COUM6TAB PO
--- NOTE | 2016-07-01 14:53 | PD ---
HPI . Leg weakness Chief Complaint: General Weakness Time Seen by Provider: 13:40 Travel History International Travel<30 days: No Contact w/Intl Traveler<30days: No Traveled to known affect area: No History of Present Illness HPI History was obtained using pen and paper. The patient has no difficulty hearing and understanding but will not speak. Patient presents to us by EMS with chief complaint of bilateral leg weakness. Patient reports the onset of symptoms 4 days ago. She states that it is getting progressively worse. She denies any associated pain. She denies any back pain. Pertinent history is that she is homeless. Also, she was hospitalized from 06/08 06/24 for a saddle embolus. She would not speak during that hospitalization and was evaluated by neuropsychiatry. She was found to have elective mutism probably secondary to chronic paranoid schizophrenia. However, she was found to be competent. The patient's mother is now here and confirms the diagnosis of paranoid schizophrenia. The mother reports that "Evan Pan" is not the patient's real name. The mother reports that the patient was in and out of hospitals for a while a number of years ago. However, she ran away from home 9 years ago and the mother has not been able to track her down until recently. The mother's first contact with her daughter in 9 years was yesterday. The mother was aware that the patient had been hospitalized recently but did not know the cause of the hospitalization. The mother has noticed that the patient' s legs are weak. She is only able to walk short distances. PFSH Past Medical History Medical History: Denies Significant Hx Autoimmune Disease: No Cancer: No Cardiovascular Problems: No Endocrine: No Medical other: Yes (pt denclines having a PE and states never took coumdian) Musculoskeletal: No Neurologic: No Respiratory: No Tetanus Vaccination: Unknown Influenza Vaccination: No (unknown) ?: Not LMP: states no menses Past Surgical History Surgical History: No Previous Surgery Other Surgery: No Social History Alcohol Use: No (UNKNOWN) Tobacco Use: No (denies) Substance Use: No Allergies-Medications (Allergen,Severity, Reaction): Coded Allergies: No Known Allergies (Unverified , 07/01/16) Reported Meds & Prescriptions Reported Meds & Active Scripts Active Coumadin (Warfarin) 6 Mg Tab 6 Mg PO DAILY@16 30 Days Review of Systems Except as stated in HPI: all other systems reviewed are Neg General / Constitutional: No: Fever, Chills Cardiovascular: No: Chest Pain or Discomfort Respiratory: No: Shortness of Breath Musculoskeletal: No: Pain Neurologic: Positive: Weakness Physical Exam Narrative GENERAL: Dirty and disheveled. She is able to hear and understand but will not speak. She is able to write her responses to questions. SKIN: Warm and dry. HEAD: Atraumatic. Normocephalic. EYES: Pupils equal and round. ENT: No nasal bleeding or discharge. Mucous membranes pink and moist. NECK: Trachea midline. CARDIOVASCULAR: Regular rate and rhythm. RESPIRATORY: No accessory muscle use. GASTROINTESTINAL: Abdomen soft, non-tender, nondistended. MUSCULOSKELETAL: No obvious deformities. No edema. No tenderness to palpation. NEUROLOGICAL: Awake and alert. No obvious cranial nerve deficits. Motor grossly within normal limits. Normal speech. She is able to flex and extend her feet but tells me that this is difficult. PSYCHIATRIC: Appropriate mood and affect; insight and judgment normal. Data Data Last Documented VS Vital Signs Date Time Temp Pulse Resp B/P Pulse Ox O2 Delivery O2 Flow Rate FiO2 07/01/16 16:00 84 16 126/74 07/01/16 15:15 97 Room Air 07/01/16 13:[address] Lumb Spine W/O Contrast (07/01/16 14:30) Electrocardiogram (07/01/16 16:02) Complete Blood Count With Diff (07/01/16 16:02) Comprehensive Metabolic Panel (07/01/16 16:02) Magnesium (Mg) (07/01/16 16:02) Act Partial Throm Time (Ptt) (07/01/16 16:02) Prothrombin Time / Inr (Pt) (07/01/16 16:02) Urinalysis - C+S If Indicated (07/01/16 16:02) Ct Brain W/O Iv Contrast(Rout) (07/01/16 16:02) Iv Access Insert/Monitor (07/01/16 16:02) Sodium Chloride 0.9% Flush (Ns Flush) (07/01/16 16:15) Ct Pulmonary Angiogram (07/01/16 ) Place In Observation (07/01/16 ) Vital Signs (Adult) Q4H (07/01/16 18:59) Neuro Checks Q4H (07/01/16 18:59) Activity Oob With Assistance (07/01/16 18:59) Diet Heart Healthy (07/01/16 Dinner) Sodium Chloride 0.9% Flush (Ns Flush) (07/01/16 19:00) Sodium Chloride 0.9% Flush (Ns Flush) (07/01/16 21:00) Acetaminophen (Tylenol) (07/01/16 19:00) Ondansetron Inj (Zofran Inj) (07/01/16 19:00) Magnesium Hydroxide Liq (Milk Of Magnesi (07/01/16 19:00) Temazepam (Restoril) (07/01/16 19:00) Basic Metabolic Panel (Bmp) (07/02/16 06:00) Comprehensive Metabolic Panel (07/02/16 06:00) Pt Request For Service (07/01/16 18:59) Ot Request For Service (07/01/16 18:59) St Request For Service (07/01/16 18:59) Case Management Consult (07/01/16 18:59) Enoxaparin Inj (Lovenox Inj) (07/01/16 19:00) Scd Bilateral/Knee High CHAPITO.BID (07/01/16 18:59) Primitivo Bilateral/Knee High CHAPITO.QSHIFT (07/01/16 18:59) Consult Psychiatry (07/01/16 ) Consult Neurology (07/01/16 ) Labs Laboratory Tests Test 07/01/16 16:50 White Blood Count 9.9 TH/MM3 Red Blood Count 4.38 MIL/MM3 Hemoglobin 12.4 GM/DL Hematocrit 37.9 % Mean Corpuscular Volume 86.5 FL Mean Corpuscular Hemoglobin 28.2 PG Mean Corpuscular Hemoglobin 32.7 % Concent Red Cell Distribution Width 15.2 % Platelet Count 335 TH/MM3 Mean Platelet Volume 8.1 FL Neutrophils (%) (Auto) 58.9 % Lymphocytes (%) (Auto) 32.0 % Monocytes (%) (Auto) 4.7 % Eosinophils (%) (Auto) 3.7 % Basophils (%) (Auto) 0.7 % Neutrophils # (Auto) 5.7 TH/MM3 Lymphocytes # (Auto) 3.2 TH/MM3 Monocytes # (Auto) 0.5 TH/MM3 Eosinophils # (Auto) 0.4 TH/MM3 Basophils # (Auto) 0.1 TH/MM3 CBC Comment DIFF FINAL Differential Comment Prothrombin Time 11.3 SEC Prothromb Time International 1.0 RATIO Ratio Activated Partial 24.2 SEC Thromboplast Time Sodium Level 142 MEQ/L Potassium Level 3.5 MEQ/L Chloride Level 108 MEQ/L Carbon Dioxide Level 25.3 MEQ/L Anion Gap 9 MEQ/L Blood Urea Nitrogen 15 MG/DL Creatinine 0.81 MG/DL Estimat Glomerular Filtration 78 ML/MIN Rate Random Glucose 92 MG/DL Calcium Level 8.7 MG/DL Magnesium Level 2.0 MG/DL Total Bilirubin 0.7 MG/DL Aspartate Amino Transf 14 U/L (AST/SGOT) Alanine Aminotransferase 32 U/L (ALT/SGPT) Alkaline Phosphatase 51 U/L Total Protein 6.8 GM/DL Albumin 3.3 GM/DL MDM Medical Decision Making Medical Screen Exam Complete: Yes Emergency Medical Condition: Yes Medical Record Reviewed: Yes (patient was hospitalized from 06/08-06/24 for saddle embolus. She refused TPA. She was treated with heparin and Coumadin. She was evaluated by neuropsychiatry found to be competent. She was further evaluated by occupational therapy and physical therapy and was discharged with a rolling walker. She was having difficulty walking at that time.) Interpretation(s) EKG shows a sinus rhythm with no acute ischemic change. Differential Diagnosis Differential diagnosis of weakness includes but is not limited to infection, CVA , electrolyte disturbance, renal failure, hypoglycemia, UTI, ACS, acute blood loss Narrative Course Patient presents to us via [facility] with bilateral leg weakness. The patient has elective mutism. She has communicated with us by writing. The patient denies recent medical illness. (She was just hospitalized for a saddle embolus). She states that she is not taking any medication. The patient adamantly refuses any sort of blood work including a finger stick blood sugar. She states that she is here by her legs are weak. She would allow a CT of her L-spine. CT L spine: T12-L1: The thecal sac has a normal diameter. No evidence of disc bulge or protrusion. The neural foramina are patent bilaterally. L1-L2: The thecal sac has a normal diameter. No evidence of disc bulge or protrusion. The neural foramina are patent bilaterally. L2-L3: The thecal sac has a normal diameter. No evidence of disc bulge or protrusion. The neural foramina are patent bilaterally. L3-L4: The thecal sac has a normal diameter. No evidence of disc bulge or protrusion. The neural foramina are patent bilaterally. L4-L5: There are extensive degenerative changes and facet ligament hypertrophy and facet overgrowth suggesting instability at this level. There is moderate lateral recess stenosis. L5-S1: Active changes present at L5-S1 generalized disc bulging eccentric to the right: Moderate encroachment right L5 and right S1 nerve root. CONCLUSION: Degenerative changes as described above worse at L4-5 and L5-S1 to the right. It took about 2-1/2 hours before we were able to convince this patient to let us do any testing other than the CT. She is complaining with progressive weakness in her lower extremities. I explained to her that I would have to have some labs before I could talk to someone to have her admitted to the hospital. It was at that point that she agreed to allow lab tests. CBC & BMP Diagram 07/01/16 16:50 Her INR is 1.1. Her initial urine was grossly contaminated with feces. We have had to bargain with her to obtain blood work, etc. Therefore the idea of catheter for urine sample will not be entertained. Physician Communication Physician Communication Dr. Hamilton will admit to obs for further evaluation, psychiatric consultation and possible neurology consultation. Diagnosis Primary Impression: Bilateral leg weakness Additional Impressions: HNP (herniated nucleus pulposus), lumbar Elective mutism Paranoid schizophrenia Admitting Information Admitting Physician Requests: Observation Condition: Stable (ERASED) Janina Mullen MD July 01, 2016 14:52
--- NOTE | 2016-07-01 15:35 | RADHPO ---
EXAM DATE/TIME: 07/01/2016 14:41 [facility] COMPARISON: No previous studies available for comparison. INDICATIONS : Bilateral leg tingling and weakness. RADIATION DOSE: 40.06 CTDIvol (mGy) MEDICAL HISTORY : Unable to obtain. SURGICAL HISTORY : Unable to obtain. ENCOUNTER: Initial ACUITY: 1 day PAIN SCALE: 0/10 LOCATION: Lumbar spine. TECHNIQUE: Volumetric scanning of the lumbar spine was performed. Multiplanar reconstructions in the sagittal, coronal and oblique axial planes were performed. Using automated exposure control and adjustment of the mA and/or kV according to patient size, radiation dose was kept as low as reasonab ly achievable to obtain optimal diagnostic quality images. FINDINGS: VERTEBRAE: Normal vertebral body height. ALIGNMENT: No evidence of subluxation. T12-L1: The thecal sac has a normal diameter. No evidence of disc bulge or protrusion. The neural foramina are patent bilaterally. L1-L2: The thecal sac has a normal diameter. No evidence of disc bulge or protrusion. The neural foramina are patent bilaterally. L2-L3: The thecal sac has a normal diameter. No evidence of disc bulge or protrusion. The neural foramina are patent bilaterally. L3-L4: The thecal sac has a normal diameter. No evidence of disc bulge or protrusion. The neural foramina are patent bilaterally. L4-L5: There are extensive degenerative changes and facet ligament hypertrophy and facet overgrowth s uggesting instability at this level. There is moderate lateral recess stenosis. L5-S1: Active changes present at L5-S1 generalized disc bulging eccentric to the right: Moderate encr oachment right L5 and right S1 nerve root. CONCLUSION: Degenerative changes as described above worse at L4-5 and L5-S1 to the right. Delon Garcia MD FACR on July 01, 2016 at 15:28 Board Certified Radiologist. This report was verified electronically.
[2016-07-01] MEDS ORDERED: SODIUM CHLORIDE 0.9% FLUSH 10 ML FLUSH IVF PRN (16:15)
[2016-07-01 17:03] LABS: AUTOMATED NEUTROPHIL # 5.7 TH/MM3 (1.8-7.7); BASOPHIL # 0.1 TH/MM3 (0-0.2); BASOPHIL % 0.7 % (0.0-2.0); EOSINOPHIL # 0.4 TH/MM3 (0-0.4); EOSINOPHIL % 3.7 % (0.0-4.0); HEMATOCRIT 37.9 % (35.0-46.0); HEMO FLAGS DIFF FINAL; LYMPHOCYTE # 3.2 TH/MM3 (1.0-4.8); MEAN CELL VOLUME 86.5 FL (80.0-100.0); MEAN CORPUSCULAR HEMOGLOBIN 28.2 PG (27.0-34.0); MEAN CORPUSCULAR HGB CONC 32.7 % (32.0-36.0); MONO % 4.7 % (0.0-8.0); NEUT % 58.9 % (16.0-70.0); PLATELET COUNT 335 TH/MM3 (150-450); RED BLOOD COUNT 4.38 MIL/MM3 (4.00-5.30); RED CELL DISTRIBUTION WIDTH 15.2 % (11.6-17.2); WHITE BLOOD COUNT 9.9 TH/MM3 (4.0-11.0)
[2016-07-01 17:09] LABS: CHLORIDE 108 MEQ/L (98-107); POTASSIUM 3.5 MEQ/L (3.5-5.1); SODIUM (NA) 142 MEQ/L (136-145)
[2016-07-01 17:16] LABS: ANION GAP 9 MEQ/L (5-15); BICARBONATE 25.3 MEQ/L (21.0-32.0); BLOOD UREA NITROGEN 15 MG/DL (7-18)
[2016-07-01 17:19] LABS: ALT (GPT) 32 U/L (10-53); AST (GOT) 14 U/L (15-37); GLOMERULAR FILTRATION RATE 78 ML/MIN (>89)
[2016-07-01 17:20] LABS: TOTAL BILIRUBIN ADULT 0.7 MG/DL (0.2-1.0)
[2016-07-01 17:22] LABS: ALKALINE PHOSPHATASE 51 U/L (45-117)
[2016-07-01 17:31] LABS: APTT (PATIENT) 24.2 SEC (24.3-30.1); PROTHROMBIN TIME - PATIENT 11.3 SEC (9.8-11.6)
--- NOTE | 2016-07-01 18:21 | RADHPO ---
EXAM DATE/TIME: 07/01/2016 17:57 [facility] COMPARISON: CT BRAIN W/O CONTRAST, June 08, 2016, 3:31. INDICATIONS : Weakness. RADIATION DOSE: 67.56 CTDIvol (mGy) MEDICAL HISTORY : Schizophrenia. SURGICAL HISTORY : Unable to obtain. ENCOUNTER: Initial ACUITY: 1 day PAIN SCALE: 0/10 LOCATION: cranial TECHNIQUE: Multiple contiguous axial images were obtained of the head. Using automated exposure control and adj ustment of the mA and/or kV according to patient size, radiation dose was kept as low as reasonably a chievable to obtain optimal diagnostic quality images. FINDINGS: CEREBRUM: The ventricles are normal for age. No evidence of midline shift, mass lesion, hemorrhage or acute in farction. No extra-axial fluid collections are seen. POSTERIOR FOSSA: The cerebellum and brainstem are intact. The 4th ventricle is midline. The cerebellopontine angle i s unremarkable. EXTRACRANIAL: The visualized portion of the orbits is intact. SKULL: The calvaria is intact. No evidence of skull fracture. CONCLUSION: Negative and unchanged noncontrast head CT. Skip Tapia MD on July 01, 2016 at 18:19 Board Certified Radiologist. This report was verified electronically.
[2016-07-01] MEDS ORDERED: TEMAZEPAM 15 MG CAP PO PRN (19:00)
[2016-07-01] MEDS ORDERED: MAGNESIUM HYDROXIDE SUSP 30 ML CUP PO PRN (19:00)
[2016-07-01] MEDS ORDERED: ONDANSETRON HCL 4 MG/2 ML VIAL IVP PRN (19:00)
[2016-07-01] MEDS ORDERED: ACETAMINOPHEN 325 MG TAB PO PRN (19:00)
[2016-07-01] MEDS ORDERED: SODIUM CHLORIDE 0.9% FLUSH 10 ML FLUSH IV FLUSH PRN (19:00)
[2016-07-01] MEDS ORDERED: ENOXAPARIN SODIUM 40 MG/0.4 ML SYRINGE SQ SCH (20:00)
[2016-07-01] MEDS: SODIUM CHLORIDE 0.9% FLUSH 10 ML FLUSH IV FLUSH SCH (20:05)
--- NOTE | 2016-07-01 20:23 | HHI.HP ---
[facility] Unknown Admission Diagnosis leg weakness, elective mutism, H/O paranoid shizo Diagnoses: Chief Complaint: weakness lower extremities, inability to walk Travel History International Travel<30 Days: No Contact w/Intl Traveler <30 Da: No Traveled to Known Affected Are: No History of Present Illness The patient is a 40 yo F with selective mutism, paranoid schizophrenia recently hospitalized from for a saddle embolus. History was obtained using pen and paper, patient nodding selectively to questions with yes/no and from records. The patient has no difficulty hearing and understanding but will not speak. Patient presents to ED by EMS with chief complaint of bilateral leg weakness. Patient reports the onset of symptoms 4 days ago. She states that it is getting progressively worse. She denies any associated pain. She denies any back pain. Pertinent history is that she is homeless. She was hospitalized from for a saddle embolus, went DC on coumadin, INR today is subtherapeutic. 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 However, she was found to be competent. The patient's mother was in the ED and confirms the diagnosis of paranoid schizophrenia. The mother reports that "Evan Pan" is not the patient's real name. The mother reports that the patient was in and out of hospitals for a while a number of years ago. However, she ran away from home 9 years ago and the mother has not been able to track her down until recently. The mother's first contact with her daughter in 9 years was yesterday. The mother was aware that the patient had been hospitalized recently but did not know the cause of the hospitalization. The mother has noticed that the patient' s legs are weak. She is only able to walk short distances. The patient is able to move her arms and follows some commands. She is not able to move her legs during my examination, also when pressure applied to nailbed she is also not moving her legs. She was able to flex knees during the examination by ED physician. Patient declines having a PE and states never took coumdian. Labs normal. CT head no change. Patient UA was contaminated with feces. No signs of infection. Will admit for neuro evaluation and psychiatric evaluation. Review of Systems ROS Limitations: Clinical Condition, Altered Mental Status, Uncooperative, Refused, Language Barrier, Poor Historian, Other (mutism) Except as stated in HPI: all other systems reviewed are Neg Past Family Social History Past Medical History PE on coumadin Past Surgical History none Reported Medications Reported Meds & Active Scripts Active Coumadin (Warfarin) 6 Mg Tab 6 Mg PO DAILY@16 30 Days Allergies: Coded Allergies: No Known Allergies (Unverified , 07/01/16) Family History nonobtainable, patienrt answers selectively to questions. Social History Denies EtOH use, illicit drug use or tobacco use. Physical Exam Vital Signs Vital Signs Date Time Temp Pulse Resp B/P Pulse Ox O2 Delivery O2 Flow Rate FiO2 07/01/16 20:02 78 16 128/82 98 Room Air 07/01/16 18:00 74 16 111/86 98 Room Air 07/01/16 17:15 71 16 97 Room Air 07/01/16 16:00 84 16 126/74 07/01/16 15:15 16 97 Room Air 07/01/16 14:50 80 16 131/79 07/01/16 13:49 80 16 98 Room Air 07/01/16 13:41 99.1 83 16 127/77 98 Physical Exam GENERAL: This is a well-nourished, well-developed patient, in no apparent distress, moving arms, following some commands, wearing sunglasses. SKIN: No rashes, ecchymoses or lesions. Cool and dry. HEAD: Atraumatic. Normocephalic. No temporal or scalp tenderness. EYES: Pupils equal round and reactive. Extraocular motions intact. No scleral icterus. No injection or drainage. ENT: Nose without bleeding, purulent drainage or septal hematoma. Throat without erythema, tonsillar hypertrophy or exudate. Uvula midline. Airway patent. NECK: Trachea midline. No JVD or lymphadenopathy. Supple, nontender, no meningeal signs. CARDIOVASCULAR: Regular rate and rhythm without murmurs, gallops, or rubs. RESPIRATORY: Clear to auscultation. Breath sounds equal bilaterally. No wheezes , rales, or rhonchi. GASTROINTESTINAL: Abdomen soft, non-tender, nondistended. No hepato-splenomegaly , or palpable masses. No guarding. MUSCULOSKELETAL: Extremities without clubbing, cyanosis, or edema. No joint tenderness, effusion, or edema noted. No calf tenderness. Negative Homans sign bilaterally. NEUROLOGICAL: Awake and alert. Cranial nerves II through XII intact. Motor and sensory grossly within normal limits upper limits.. Five out of 5 muscle strength in all muscle groups upper limits. Mutism. Patient doesn't move her legs, pressure applied to nails, patient doesn't move legs at all. Laboratory Laboratory Tests Test 07/01/16 16:50 White Blood Count 9.9 Red Blood Count 4.38 Hemoglobin 12.4 Hematocrit 37.9 Mean Corpuscular Volume 86.5 Mean Corpuscular Hemoglobin 28.2 Mean Corpuscular Hemoglobin 32.7 Concent Red Cell Distribution Width 15.2 Platelet Count 335 Mean Platelet Volume 8.1 Neutrophils (%) (Auto) 58.9 Lymphocytes (%) (Auto) 32.0 Monocytes (%) (Auto) 4.7 Eosinophils (%) (Auto) 3.7 Basophils (%) (Auto) 0.7 Neutrophils # (Auto) 5.7 Lymphocytes # (Auto) 3.2 Monocytes # (Auto) 0.5 Eosinophils # (Auto) 0.4 Basophils # (Auto) 0.1 CBC Comment DIFF FINAL Differential Comment Prothrombin Time 11.3 Prothromb Time International 1.0 Ratio Activated Partial 24.2 Thromboplast Time Sodium Level 142 Potassium Level 3.5 Chloride Level 108 Carbon Dioxide Level 25.3 Anion Gap 9 Blood Urea Nitrogen 15 Creatinine 0.81 Estimat Glomerular Filtration 78 Rate Random Glucose 92 Calcium Level 8.7 Magnesium Level 2.0 Total Bilirubin 0.7 Aspartate Amino Transf 14 (AST/SGOT) Alanine Aminotransferase 32 (ALT/SGPT) Alkaline Phosphatase 51 Total Protein 6.8 Albumin 3.3 Result Diagram: 07/01/16 1650 07/01/16 1650 Imaging Last Impressions Head CT 07/01/16 1602 Signed Impressions: Service Date/Time: Friday, July 01, 2016 17:57 - CONCLUSION: Negative and unchanged noncontrast head CT. Skip Tapia MD Lumbar Spine CT 07/01/16 1430 Signed Impressions: Service Date/Time: Friday, July 01, 2016 14:41 - CONCLUSION: Degenerative changes as described above worse at L4-5 and L5-S1 to the right. Delon Garcia MD FACR Assessment and Plan Assessment and Plan 40 to F with mutism came to ED for evaluation of bilateral LE weakness, inability to walk Bilateral leg weakness HNP (herniated nucleus pulposus), lumbar Elective mutism Paranoid schizophrenia Patient was recently hospitalized from 06/08-06/24 for saddle embolus. She refused TPA. She was treated with heparin and Coumadin. She was evaluated by neuropsychiatry found to be competent. She was further evaluated by occupational therapy and physical therapy and was discharged with a rolling walker. She was having difficulty walking at that time. Patient returned with inability to walk. Per mother who came to ER the patient was noted with difficulty walking and came by EMS for further evaluation/ Patient is with selective mutism she is nodding selectively to questions yes/no and also writhes downs answers. She is moving upper extremities and follows commands, however during my examination she was not able to move her legs at all , even when pressure applied to bednails. EKG shows a sinus rhythm with no acute ischemic change. CT scan reviewed, no new changes. Labs normal. INR is subtherapeutic, patient admits not taking coumadin and denies having saddle embolism. CT lumbar spine shows degenerative changes worse at L4-5 and L5-S1 to the right UA was contaminated with feces. No signs of infection. Will admit patient for further neurological evaluation and also psych evaluation. Start comadin, pharm to dose, start lovenox bid bridge until INR therapeutic Consult neurology Consult psych PT/OT/ST Neurochecks DVT ppx coumadin/lovenox Discussed Condition With patient, nurse, ED physician Estefanía Hamilton MD July 01, 2016 20:23
[2016-07-01] MEDS: ENOXAPARIN SODIUM 80 MG/0.8 ML SYRINGE SQ SCH (20:52)
[2016-07-02 03:38] VITALS: BP 102/60; PULSE 50; RESP 18; TEMP 97; O2SAT 98
[2016-07-02 07:16] VITALS: BP 124/74; PULSE 61; RESP 18; TEMP 97.7; O2SAT 97
[2016-07-02] MEDS: ENOXAPARIN SODIUM 80 MG/0.8 ML SYRINGE SQ SCH ×2 (09:00→20:49)
[2016-07-02] MEDS: SODIUM CHLORIDE 0.9% FLUSH 10 ML FLUSH IV FLUSH SCH ×2 (09:00→21:00)
[2016-07-02 10:55] LABS: INTERNATIONAL NORMALIZED RATIO 1.1 RATIO; PROTHROMBIN TIME - PATIENT 11.8 SEC (9.8-11.6)
[2016-07-02 11:03] LABS: ALT (GPT) 27 U/L (10-53); ANION GAP 8 MEQ/L (5-15); AST (GOT) 13 U/L (15-37); BICARBONATE 25.9 MEQ/L (21.0-32.0); BLOOD UREA NITROGEN 15 MG/DL (7-18); CHLORIDE 109 MEQ/L (98-107); GLOMERULAR FILTRATION RATE 80 ML/MIN (>89); SODIUM (NA) 143 MEQ/L (136-145)
[2016-07-02 11:05] LABS: ALKALINE PHOSPHATASE 53 U/L (45-117); BETA HCG QUANT 5 MIU/ML (0-5); TOTAL BILIRUBIN ADULT 0.5 MG/DL (0.2-1.0)
[2016-07-02 12:00] VITALS: BP 119/78; PULSE 65; RESP 18; TEMP 97.8; O2SAT 96
--- NOTE | 2016-07-02 12:28 | PD.CONS ---
Provisional Diagnosis Admission Date July 01, 2016 at 19:04 [place]. Schizophrenia History of Present Illness Service Psychiatry Consult Requested By Primary Care Physician Unknown HPI The patient is a 40-year-old woman, homeless, unknown social circumstances, with psychiatric history of paranoid schizophrenia, who presents to ED by EMS with chief complaint of bilateral leg weakness. Patient reports the onset of symptoms 4 days ago. She states that it is getting progressively worse. She was hospitalized from for a saddle embolus, went DC on coumadin, INR today is subtherapeutic. 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 However, she was found to be competent. The patient's mother was in the ED and confirms the diagnosis of paranoid schizophrenia. The mother reports that "Evan Pan" is not the patient's real name. The mother reports that the patient was in and out of hospitals for a while a number of years ago. However, she ran away from home 9 years ago and the mother has not been able to track her down until recently. The mother's first contact with her daughter in 9 years was yesterday. The mother was aware that the patient had been hospitalized recently but did not know the cause of the hospitalization. The mother has noticed that the patient's legs are weak. She is only able to walk short distances. The patient is able to move her arms and follows some commands. She is not able to move her legs during my examination, also when pressure applied to nailbed she is also not moving her legs. She was able to flex knees during the examination by ED physician. Labs normal. CT head no change. Consulted to psychiatry due to history of schizophrenia and selective mutism. The conversation with primary care physician and aspiration of knows, since patient arrived to the hospital she has been mostly mute, communicated by noting and by writing. Patient was visited for psychiatric evaluation, but once I presented as a psychiatrist, wrote in a piece of paper I do not want to speak with a psychiatrist, I do not have any mental condition, I do not have depression, schizophrenia is under control, I dont need medication, I am not suicidal or homicidal. In spite of reassurance and redirection patient refuses to continue providing information to me. I spoke with Dr. Hamilton and she told me that her concern is that the patient might refuse medication necessary to maintain her health, but so far she has been compliant. We will keep in communication in case of the patient needs to be addressed psychiatrically. Past Family Social History Coded Allergies: No Known Allergies (Unverified , 07/01/16) Active Scripts Warfarin (Coumadin)6 Mg Tab6 Mg PO DAILY@16 30 Days Prov:Steven Mccray 06/24/16 Current Medications Medications (Trade) Dose Ordered Sig/Nimo Route Start Time Stop Time Status Last Admin (NS Flush) 2 ml UNSCH PRN IVF 07/01/16 16:15 (NS Flush) 2 ml UNSCH PRN IV FLUSH 07/01/16 19:00 (NS Flush) 2 ml BID IV FLUSH 07/01/16 21:00 (Tylenol) 650 mg Q4H PRN PO 07/01/16 19:00 (Zofran Inj) 4 mg Q6H PRN IVP 07/01/16 19:00 ([employer] Liq) 30 ml Q12H PRN PO 07/01/16 19:00 (Restoril) 15 mg HS PRN PO 07/01/16 19:00 Warfarin Sodium 6 mg 6 mg DAILY@16 PO 07/02/16 16:00 (Coumadin Consult Pharmacy) 0 ml @ 0 mls/hr UNSCH OTHER 07/01/16 20:45 (Lovenox Inj) 80 mg Q12H SQ 07/01/16 21:00 Physical Exam Vital Signs Vital Signs Date Time Temp Pulse Resp B/P Pulse Ox O2 Delivery O2 Flow Rate FiO2 07/02/16 07:16 97.7 61 18 124/74 97 07/01/16 22:12 Room Air Mental Status Examination Appearance woman, poor hygiene, malodorous, selectively mute, poorly cooperative Speech: Other (mute) Orientation: x3 Memory: Unremarkable Thought Process: Linear Suicidal Ideation: No Previous Suicide Attempts: No Homicidal Ideation: No Previous Homicide Attempts: No Insight: Fair Judgment: Poor Affect: Euthymic Affect if Inappropriate: Flat Motor Activity: Abnormal gait-specify Assessment & Plan Problem List: (1) Paranoid schizophrenia Assessment & Plan: I saw and examined this patient in her last hospitalization for this same concern, she was selectively mute, partially cooperative, oddly related. Today she continues to be selectively mute, refused to complete the psychiatric assessment in the ER. However she denies suicidal or homicidal ideation, visual and auditory hallucinations. Patient has been compliant with medication and medical recommendations so far. She is oddly related, wearing sunglasses in darkness of the room and they are, communicated just by nodding and writing. So far, other than this bizarre behavior, no further agitation, aggressive behavior or florid psychosis has been described or observed. Patient does not seem to be a danger to self and others, I do not see any reason for involuntary psychiatric commitment. Case was discussed with primary medical team. Please, feel free to contact me if any concerns or questions. ICD Code: F20.0 Assessment & Plan Estimated LOS: Vijay Valdes MD July 02, 2016 12:28
--- NOTE | 2016-07-02 13:24 | HHI.PR ---
Subjective Remarks Follow up for lower extremity weakness, and pulmonary embolism. The patient is again with selective mutism, only nods yes/no to answer questions. She is currently eating her lunch with her fingers. She reports continued bilateral lower extremity weakness for a week now, and with some bilateral upper extremity weakness however not as severe as her legs. She is unable to wiggle her toes. She denies any recent fall. Denies any headache, lightheadedness, or dizziness. Denies any chest pain or shortness of breath. O2 sat stable on room air. Objective Vitals Vital Signs Date Time Temp Pulse Resp B/P Pulse Ox O2 Delivery O2 Flow Rate FiO2 07/02/16 12:00 97.8 65 18 119/78 96 07/02/16 07:16 97.7 61 18 124/74 97 07/02/16 03:38 97.0 50 18 102/60 98 07/01/16 22:59 97.2 58 18 106/66 95 07/01/16 22:29 78 18 97 07/01/16 22:12 74 16 116/84 97 Room Air 07/01/16 20:02 78 16 128/82 98 Room Air 07/01/16 18:00 74 16 111/86 98 Room Air 07/01/16 17:15 71 16 97 Room Air 07/01/16 16:00 84 16 126/74 07/01/16 15:15 16 97 Room Air 07/01/16 14:50 80 16 131/79 07/01/16 13:49 80 16 98 Room Air 07/01/16 13:41 99.1 83 16 127/77 98 Result Diagram: 07/01/16 1650 07/02/16 1020 Imaging Last Impressions Head CT 07/01/16 1602 Signed Impressions: Service Date/Time: Friday, July 01, 2016 17:57 - CONCLUSION: Negative and unchanged noncontrast head CT. Skip Tapia MD Lumbar Spine CT 07/01/16 1430 Signed Impressions: Service Date/Time: Friday, July 01, 2016 14:41 - CONCLUSION: Degenerative changes as described above worse at L4-5 and L5-S1 to the right. Delon Garcia MD FACR Objective Remarks GENERAL: Well-nourished, well-developed middle aged female patient in NAD. Wearing sunglasses. Selectively nonverbal, nods head yes/no. SKIN: Warm and dry. No rash. HEENT: Normocephalic. Atraumatic. Pupils equal and round. Mucous membranes pink and moist. NECK: Supple. Trachea midline. CARDIOVASCULAR: Regular rate and rhythm. S1, S2 noted. No murmur appreciated. RESPIRATORY: No accessory muscle use. Clear to auscultation. Breath sounds equal bilaterally. GASTROINTESTINAL: Abdomen soft, non-tender, nondistended. Normoactive bowel sounds x4. MUSCULOSKELETAL: No obvious deformities.1+ bilateral lower extremity edema. NEUROLOGICAL: Awake and alert. Unable to wiggle toes or move legs bilaterally. No response to painful stimuli however sensation intact. 4/5 strength of bilateral upper extremities. Medications and IVs Current Medications Medications (Trade) Dose Ordered Sig/Nimo Route Start Time Stop Time Status Last Admin (NS Flush) 2 ml UNSCH PRN IVF 07/01/16 16:15 (NS Flush) 2 ml UNSCH PRN IV FLUSH 07/01/16 19:00 (NS Flush) 2 ml BID IV FLUSH 07/01/16 21:00 (Tylenol) 650 mg Q4H PRN PO 07/01/16 19:00 (Zofran Inj) 4 mg Q6H PRN IVP 07/01/16 19:00 (Milk Of [employer] Liq) 30 ml Q12H PRN PO 07/01/16 19:00 (Restoril) 15 mg HS PRN PO 07/01/16 19:00 Warfarin Sodium 6 mg 6 mg DAILY@16 PO 07/02/16 16:00 (Coumadin Consult Pharmacy) 0 ml @ 0 mls/hr UNSCH OTHER 07/01/16 20:45 (Lovenox Inj) 80 mg Q12H SQ 07/01/16 21:00 A/P Assessment and Plan 40-year-old female with history of paranoid schizophrenia, selective mutism, recent hospitalization 06/08-06/24 for pulmonary saddle embolus; presents for a 1 week history of bilateral lower extremity weakness and difficulty ambulating. Bilateral Lower Extremity Weakness, Difficulty w/Ambulation: unclear etiology. Patient unable to even wiggle toes on exam and does not respond to painful stimuli although she reports continued sensation of legs. During previous hospitalization, evaluated by PT/OT, discharge with a walker. Lumbar spine CT images reviewed, showed active changes present at L5-S1 generalized disc bulging and moderate encroachment at right L5 and S1 nerve root. Consulted neurology. Continue neuro checks. PT/OT consult. Subacute Pulmonary Embolism with Subtherapeutic INR: during previous hospitalization, patient refused TPA, she was treated with Heparin and Coumadin however patient now saying she never had a PE and is not on Coumadin. Restarted Coumadin with pharmacy consult, bridge with full strength Lovenox 80mg sq bid. Ordered coumadin teaching. Monitor daily INR. -1300 hrs- I had extensive discussion with the patient, brought the CTPA report into the room, highlighted the areas that showed "diffuse bilateral pulmonary emboli with prominent saddle embolus". The patient adamantly states that this is not her, she has never heard of having a blood clot and she has never heard of Lovenox. Currently she is refusing Lovenox and Coumadin despite me explaining that this can result in sudden if left untreated. I then discussed repeating the CTPA to confirm pulmonary embolism, however the patient writes she will not agree to receiving IV iodine as she is convinced that last night when she had the lumbar spine CT that the radiology department infiltrated her IV with the iodine, however both CTs done yesterday were done without contrast. I then discussed VQ scan and proceeding with treatment with Lovenox/Coumadin if the VQ scan confirms pulmonary emboli. The patient continues to write "I don't have that" but she does agree to proceeding the VQ scan at this time. Selective Mutism with Paranoid Schizophrenia: chronic, however suspect contributing to above weakness. Patient has been evaluated by psychiatry, appreciate recommendations. Noncompliance: patient currently refusing Lovenox and Coumadin as she does not believe she has blood clot. See discussion as above. Candidal intertrigo: under bilateral breasts. Start on Nystatin powder. DVT Prophylaxis: coumadin/lovenox when patient agrees I spent 35 minutes [id number] with the patient or on the beth discussing the patient's disposition, prognosis, and plan of care with her caregivers. Over half the time spent was devoted to counseling the patient regarding placement in coordinating care with caregivers. Katina Palafox PA-C July 02, 2016 1:24 pm
--- NOTE | 2016-07-02 15:59 | RADRPT ---
EXAM DATE/TIME: 07/02/2016 15:25 [facility] COMPARISON: CHEST SINGLE AP, June 08, 2016, 2:04. INDICATIONS : Chest pain. MEDICAL HISTORY : None. SURGICAL HISTORY : None. ENCOUNTER: Initial ACUITY: 1 day PAIN SCORE: 4/10 LOCATION: Bilateral chest FINDINGS: A single view of the chest demonstrates the lungs to be symmetrically aerated without evidence of mas s, infiltrate or effusion. The cardiomediastinal contours are unremarkable. Osseous structures are intact. CONCLUSION: No acute disease. Skip Vo MD on July 02, 2016 at 15:57 Board Certified Radiologist. This report was verified electronically.
--- NOTE | 2016-07-02 16:01 | EKG ---
Date Performed: 07/01/2016 Time Performed: 16:07:48 PTAGE: 40 years EKG: Sinus rhythm Low QRS voltages in precordial leads Borderline ECG Compared to prior tracing no significant change PREVIOUS TRACING : 06/08/2016 01.58 DOCTOR: Sary Oliver Interpretating Date/Time 07/02/2016 16:00:21
[2016-07-02 16:19] VITALS: BP 116/72; PULSE 65; RESP 19; TEMP 97.7; O2SAT 96
--- NOTE | 2016-07-02 17:05 | RADRPT ---
EXAM DATE/TIME: 07/02/2016 15:23 [facility] COMPARISON: No previous studies available for comparison. INDICATIONS : Short of breath for 1 day. History of pulmonary embolisms. DOSE: 1.5 mCi Tc99m DTPA aerosol MEDICAL HISTORY : Paraniod schizophrenia. Selective mutism. SURGICAL HISTORY : None. ENCOUNTER: Initial ACUITY: 1 day PAIN SCALE: 1/10 LOCATION: Bilateral chest TECHNIQUE: Following five minutes of tidal breathing of DTPA aerosol, planar images of the lungs were performed in eight projections. FINDINGS: There is a inhomogeneous pattern of aerosol delivery to the periphery of both lungs. The patient was injected with the MAA but the IV was inadequate and the dose did not make it to the lungs. Patient re fused a repeat injection. CONCLUSION: 1. Ventilation scan only. 2. Patchy distribution of radiotracer. Without the corresponding perfusion study, findings are nonspe cific but could represent central trapping/COPD. Pulmonary embolus cannot be excluded. Devante Dumont MD on July 02, 2016 at 17:01 Board Certified Radiologist. This report was verified electronically.
[2016-07-02] MEDS: NYSTATIN 100,000 U/GM PWD 15 GM BTL TOPICAL SCH ×2 (17:10→21:00)
[2016-07-02] MEDS: WARFARIN SOD 6 MG TAB PO SCH (17:11)
--- NOTE | 2016-07-02 18:52 | RADRPT ---
EXAM DATE/TIME: 07/02/2016 17:35 [facility] COMPARISON: No previous studies available for comparison. INDICATIONS : Bilateral leg weakness; possible radiculopathy. RADIATION DOSE: 23.8 CTDIvol (mGy) MEDICAL HISTORY : Non-responsive. SURGICAL HISTORY : Non-responsive. ENCOUNTER: Initial ACUITY: 1 day PAIN SCALE: Non-responsive LOCATION: Neck TECHNIQUE: Volumetric scanning of the cervical spine was performed. Multiplanar reconstructions i n the sagittal, coronal and oblique axial planes were performed. Using automated exposure control a nd adjustment of the mA and/or kV according to patient size, radiation dose was kept as low as reason ably achievable to obtain optimal diagnostic quality images. FINDINGS: The craniovertebral junction is intact. The C1 ring is intact. The C1-C2 articulation and dens are intact. Cervical vertebral bodies are normally aligned and normal in height. C2-C3: The disc space is intact. There is no spinal stenosis. The neural foramina are normal. The re is bilateral facet hypertrophy. C3-C4: The disc space is grossly intact. Significant spinal stenosis is not appreciated. There is bilateral facet hypertrophy. There is some mild narrowing of the neural foramina. C4-C5: The disc space is intact. There is no spinal stenosis. The neural foramina are grossly inta ct. There is moderate facet hypertrophy. C5-C6: The disc space is narrowed. There is posterior osteophytic ridging being asymmetric and wors e on the left. There is uncovertebral hypertrophy being worse on the left. There is mild facet hype rtrophy. There is narrowing of the neural foramina being worse on the left. C6-C7: The disc space is narrowed. There is posterior osteophytic ridging causing a mild impression on the thecal sac. There is uncovertebral hypertrophy being worse on the left. The neural foramina are grossly intact. C7-T1: The disc space is intact. There is no spinal stenosis. The neural foramina are normal. The re is mild facet hypertrophy on the right. CONCLUSION: 1. No acute bony abnormality seen. 2. Degenerative change at multiple levels as described above. Skip Vo MD on July 02, 2016 at 18:18 Board Certified Radiologist. This report was verified electronically.
[2016-07-02 20:49] VITALS: BP 115/70; PULSE 65; RESP 18; TEMP 98.2; O2SAT 94
[2016-07-02 23:19] VITALS: BP 112/68; PULSE 62; RESP 18; TEMP 97.9; O2SAT 94
[2016-07-03 04:23] VITALS: BP 127/72; PULSE 57; RESP 16; TEMP 97.8; O2SAT 94
--- NOTE | 2016-07-03 06:04 | MB ---
cc: ADITI SARKAR MD DATE OF : 73 DATE OF CONSULTATION: 07/02/2016 REASON FOR CONSULTATION: Bilateral lower extremity weakness. HISTORY OF PRESENT ILLNESS Ms. Pan is a 40-year-old female with a diagnosis of elective mutism, paranoid schizophrenia, was recently hospitalized from 06/08 to 06/24/2016, for saddle embolus. The entire history is obtained by using a pen and paper, where the patient answers questions and asks questions by writing on a piece of the paper towel. The rest of the medical history is obtained from the medical records review. The patient presented to the emergency room by EMS for chief complaint of bilateral leg weakness that has started 4 days prior to admission and is progressively worse. Denies backache or neck pain, denies sphincter control disturbances, denies upper extremity weakness. However, there is a new complaint of right upper extremity weakness which she attributes to swelling and its effects of balloon contrast dye. The patient is homeless. She was started on Coumadin. INR was noted to be subtherapeutic. As per medical records, the mother who was earlier in the ED reported that "Evan Pan" is not the patient's real name. The patient ran away from home 9 years ago and she was tracked by the mother recently. The patient denies history of neck or back procedure, denies history of seizures, denies tingling, numbness, pain in the lower extremities. The patient is in denial of having saddle embolus and never took Coumadin. REVIEW OF SYSTEMS A 12-point review of systems is negative except what is stated in the HPI. PAST MEDICAL HISTORY PE on Coumadin. PAST SURGICAL HISTORY Noncontributory MEDICATIONS Coumadin. ALLERGIES No known allergies. FAMILY HISTORY Unable to obtain. SOCIAL HISTORY Denies ethanol, tobacco or illicit drug abuse. PHYSICAL EXAMINATION General: Awake, overweight, in no apparent history. Answers questions through writing on paper. HEENT: Atraumatic, normocephalic. Wears sunglasses. She writes, "I am light sensitive." Intact hearing. Neck: Trachea in the midline, no neck tenderness. Cardiovascular: Regular rate and rhythm. Respiratory: Clear to auscultation. No wheezes. Abdomen: Soft. Musculoskeletal: No clubbing, no cyanosis. Unable to move bilateral lower extremities Neurological: Awake, alert, mute. Communicates through writing. She asks intelligent questions. For example, when I mentioned t her that lumbar puncture is one of the tests to help with the diagnosis, she asked by writing, about "whether there are blood tests that can indicate that she has [employer] disorder." Intact external ocular motility. Pupils are to 3 mm bilateral and symmetrical. No facial asymmetry. Upper extremities: left upper extremity 5/5, right upper extremity, finger flexion, and finger extension 5/5. She subconsciously moves the right upper extremity, however, during the examination, elbow flexion was 2, elbow extension 1, 0 shoulder abduction, bilateral lower extremities, grade 0, sensation is intact bilateral and symmetrical throughout. Reflexes bilateral upper extremities 2+, bilateral lower extremities 2+, plantars bilaterally downgoing. Unable to perform [id number]. No sensory level. LABORATORY TESTS: - White blood cell count 9.1, hemoglobin 12.4, hematocrit 7.9, platelet count 335. INR 1, sodium 142, chloride 102, anion gap 9, BUN 15, creatinine 0.81, calcium 8.7, magnesium 2, liver function tests normal. DIAGNOSTICS IMAGING - Head CT scan, negative for acute intracranial process. - Lumbar C-spine, degenerative changes, L5-S1 to the right. - Lung scan: Patchy distribution of radiotracer without the perfusion study. Findings were nonspecific. Pulmonary embolus cannot be excluded. DIAGNOSTIC IMPRESSION 1. Paraplegia. 2. Elective mutism. 3. Paranoid schizophrenia. PLAN: 1. Neuro checks q4 hourly. 2. Consult psychiatry. 3. PT/OT, speech therapy recommendations are appreciated. 4. DVT prophylaxis. SCDs 5. Fall precautions. 6. Cervical spine CT. Thank you for the opportunity to participate in the are of your patient. MD LINDA Chi/TERENCE /11:29 PM /5:30 AM MARYBETH
[2016-07-03 06:05] LABS: PROTHROMBIN TIME - PATIENT 11.2 SEC (9.8-11.6)
[2016-07-03 08:18] VITALS: BP 101/70; PULSE 61; RESP 20; TEMP 97.9; O2SAT 95
[2016-07-03] MEDS: ENOXAPARIN SODIUM 80 MG/0.8 ML SYRINGE SQ SCH ×2 (09:00→21:00)
[2016-07-03] MEDS: NYSTATIN 100,000 U/GM PWD 15 GM BTL TOPICAL SCH ×2 (10:01→21:01)
[2016-07-03] MEDS: SODIUM CHLORIDE 0.9% FLUSH 10 ML FLUSH IV FLUSH SCH ×2 (10:02→21:00)
--- NOTE | 2016-07-03 10:56 | HHI.PR ---
Subjective Remarks Follow-up for lower extremity weakness, pulmonary embolism. Again spent 30+ minutes in the patient's room discussing her imaging results, diagnosis, and plan of care. Communication done with patient in writing on a piece of paper. Patient still adamant that her previous hospitalization and chest CT was not her. She continues to refuse repeat chest CTA or VQ scan. She is refusing any further injections whether it is with contrast, iodine, or nuclear medicine injection. It is documented that the patient did take her Coumadin yesterday, however the patient states no she didn't. I discussed that the ventilation part of stay VQ scan did suggest possibility of pulmonary embolism, however she then questioned that it could actually be a clot, and states that she does not want any treatment unless she has a definitive diagnosis of a clot. I then discussed at least doing a Doppler ultrasound of her legs which the patient agrees to. I explained to her that even if we are suspicious of a blood clot, we were to start anticoagulation as soon as possible to prevent a blood clot traveling and causing pulmonary embolism, however the patient wants to wait until she has a results of the leg ultrasound before she even consider starting anticoagulation. She would not even talk to me about starting oral anticoagulation including Xarelto or Eliquis. Of note, when I explained that the nuclear medicine injection infiltrated her IV, she started laughing out loud then realized she was speaking and started writing again. The patient still refuses to even attempt to wiggle her toes or ambulate. Refuses to work with physical therapy, discussed with PT. The patient denies any other medical complaints at this time. Objective Vitals Vital Signs Date Time Temp Pulse Resp B/P Pulse Ox O2 Delivery O2 Flow Rate FiO2 07/03/16 08:18 97.9 61 20 101/70 95 07/03/16 04:23 97.8 57 16 127/72 94 07/02/16 23:19 97.9 62 18 112/68 94 07/02/16 20:49 98.2 65 18 115/70 94 07/02/16 16:19 97.7 65 19 116/72 96 07/02/16 12:00 97.8 65 18 119/78 96 I/O 07/02/16 07/02/16 07/02/16 07/03/16 07/03/16 07/03/16 07:00 15:00 23:00 07:00 15:00 23:00 Intake Total 380 ml Balance 380 ml Intake Oral 380 ml # Voids 2 # Bowel Movements 1 Result Diagram: 07/01/16 1650 07/02/16 1020 Imaging Last Impressions Lung Scan Nuclear Medicine 07/02/16 0000 Signed Impressions: Service Date/Time: Saturday, July 02, 2016 15:23 - CONCLUSION: 1. Ventilation scan only. 2. Patchy distribution of radiotracer. Without the corresponding perfusion study, findings are nonspecific but could represent central trapping/COPD. Pulmonary embolus cannot be excluded. Devante Dumont MD Chest X-Ray 07/02/16 0000 Signed Impressions: Service Date/Time: Saturday, July 02, 2016 15:25 - CONCLUSION: No acute disease. Skip Vo MD Cervical Spine CT 07/02/16 0000 Signed Impressions: Service Date/Time: Saturday, July 02, 2016 17:35 - CONCLUSION: 1. No acute bony abnormality seen. 2. Degenerative change at multiple levels as described above. Skip Vo MD Head CT 07/01/16 1602 Signed Impressions: Service Date/Time: Friday, July 01, 2016 17:57 - CONCLUSION: Negative and unchanged noncontrast head CT. Skip Taipa MD Lumbar Spine CT 07/01/16 1430 Signed Impressions: Service Date/Time: Friday, July 01, 2016 14:41 - CONCLUSION: Degenerative changes as described above worse at L4-5 and L5-S1 to the right. Delon Garcia MD FACR Objective Remarks GENERAL: Well-nourished, well-developed middle aged female patient in [facility]. Wearing sunglasses. Selectively nonverbal, nods head yes/no. SKIN: Warm and dry. No rash. HEENT: Normocephalic. Atraumatic. Pupils equal and round. Mucous membranes pink and moist. NECK: Supple. Trachea midline. CARDIOVASCULAR: Regular rate and rhythm. S1, S2 noted. No murmur appreciated. RESPIRATORY: No accessory muscle use. Clear to auscultation. Breath sounds equal bilaterally. GASTROINTESTINAL: Abdomen soft, non-tender, nondistended. Normoactive bowel sounds x4. MUSCULOSKELETAL: No obvious deformities.1+ bilateral lower extremity edema. Calves nontender to palpation bilaterally. NEUROLOGICAL: Awake and alert. Unable to wiggle toes or move legs bilaterally. No response to painful stimuli however sensation intact. 4/5 strength of bilateral upper extremities. Medications and IVs Current Medications Medications (Trade) Dose Ordered Sig/Nimo Route Start Time Stop Time Status Last Admin (NS Flush) 2 ml UNSCH PRN IVF 07/01/16 16:15 (NS Flush) 2 ml UNSCH PRN IV FLUSH 07/01/16 19:00 (NS Flush) 2 ml BID IV FLUSH 07/01/16 21:00 07/03/16 10:02 (Tylenol) 650 mg Q4H PRN PO 07/01/16 19:00 (Zofran Inj) 4 mg Q6H PRN IVP 07/01/16 19:00 (Milk Of Magnbethany Liq) 30 ml Q12H PRN PO 07/01/16 19:00 (Restoril) 15 mg HS PRN PO 07/01/16 19:00 Warfarin Sodium 6 mg 6 mg DAILY@16 PO 07/02/16 16:00 07/02/16 17:11 (Coumadin Consult Pharmacy) 0 ml @ 0 mls/hr UNSCH OTHER 07/01/16 20:45 (Lovenox Inj) 80 mg Q12H SQ 07/01/16 21:00 (Mycostatin Powder) 1 applic Q12HR TOPICAL 07/02/16 14:00 07/03/16 10:01 A/P Assessment and Plan 40-year-old female with history of paranoid schizophrenia, selective mutism, recent hospitalization 06/08-06/24 for pulmonary saddle embolus; presents for a 1 week history of bilateral lower extremity weakness and difficulty ambulating. Bilateral Lower Extremity Weakness, Difficulty w/Ambulation: unclear etiology. Patient unable to even wiggle toes on exam and does not respond to painful stimuli although she reports continued sensation of legs. During previous hospitalization, evaluated by PT/OT, discharge with a walker. Lumbar spine CT images reviewed, showed active changes present at L5-S1 generalized disc bulging and moderate encroachment at right L5 and S1 nerve root. C-spine CT shows no acute bony abnormality; degenerative changes at multiple levels. Consulted neurology. Patient refusing LP. Continue neuro checks. PT/OT consult, patient refuses to participate. Subacute Pulmonary Embolism with Subtherapeutic INR: during previous hospitalization, patient refused TPA, she was treated with Heparin and Coumadin however patient now saying she never had a PE and is not on Coumadin. Restarted Coumadin with pharmacy consult, bridge with full strength Lovenox 80mg sq bid; however patient refusing Lovenox/Coumadin. She does not believe she has a clot despite multiple attempts to explain this to her and show her imaging results. VQ scan done yesterday but nuclear medicine infiltrated IV and study was unable to be completed as patient refused another IV access. Today she agrees to check bilateral Doppler U/S of legs but does not agree to discuss anticoagulation until we have a definite diagnosis of confirmed clot. I thoroughly explained the patient that the longer she goes without anticoagulation, she is at significantly high risk of sudden ; patient writes "I understand" on her paper and continues to decline anticoagulation at this time. Consult palliative care to determine goals of treatment. Selective Mutism with Paranoid Schizophrenia: chronic, however suspect contributing to above weakness. Patient has been evaluated by psychiatry, appreciate recommendations. Noncompliance: patient currently refusing Lovenox and Coumadin as she does not believe she has blood clot. See discussion as above. Candidal intertrigo: under bilateral breasts. Start on Nystatin powder. DVT Prophylaxis: patient refusing coumadin/lovenox I spent 35 minutes [id number] with the patient or on the beth discussing the patient's disposition, prognosis, and plan of care with her caregivers. Over half the time spent was devoted to counseling the patient regarding placement in coordinating care with caregivers. Katina Palafox PA-C July 03, 2016 10:56 am
--- NOTE | 2016-07-03 11:42 | RADRPT ---
EXAM DATE/TIME: 07/03/2016 10:36 [facility] COMPARISON: US LEG BILATERAL VENOUS DOPPLER, June 11, 2016, 8:14. INDICATIONS : Bilateral leg swelling. MEDICAL HISTORY : Eye sensitivity. Selective mutism. Photophobia. Pulmonary embolism. Paranoid schizophrenia. SURGICAL HISTORY : Unable to obtain. ENCOUNTER: Subsequent ACUITY: 1 day PAIN SCORE: 2/10 LOCATION: Bilateral legs. TECHNIQUE: Venous ultrasound of the left and right leg was performed from the inguinal ligament to the proximal calf. Real-time, color Doppler and spectral tracing, compression and augmentation techniques were us ed. FINDINGS: RIGHT LEG: There is normal compressibility of the deep venous system from the inguinal region to the proximal ca lf. No echogenic clot is seen in the lumen of the common femoral, femoral, popliteal, and posterior tibial veins. There is a normal response of the venous system to proximal and distal augmentation an d respiration. LEFT LEG: There is normal compressibility of the deep venous system from the inguinal region to the proximal ca lf. No echogenic clot is seen in the lumen of the common femoral, femoral, popliteal, and posterior tibial veins. There is a normal response of the venous system to proximal and distal augmentation an d respiration. CONCLUSION: Normal examination. Dax Nagel MD on July 03, 2016 at 11:41 Board Certified Radiologist. This report was verified electronically.
--- NOTE | 2016-07-03 11:47 | OTSOAPIP ---
TIME SESSION COMPLETED: TREATMENT TIME: 0 MINS. CHART REVIEWED. ATTEMPTED TO SEE FOR OT EVALUATION, HOWEVER PT ADAMANDTLY SHAKING HEAD NO AND DECLINES TO PARTICIPATE TODAY. WILL FOLLOW TOMMASHA. Therapist: GERMÁN ALARCON OT/L Signature on file
[2016-07-03 12:13] VITALS: BP 112/62; PULSE 65; RESP 19; TEMP 98.1; O2SAT 98
[2016-07-03] MEDS: WARFARIN SOD 6 MG TAB PO SCH (16:00)
[2016-07-03 17:29] VITALS: BP 116/63; PULSE 67; RESP 22; TEMP 96.5; O2SAT 96
--- NOTE | 2016-07-03 19:10 | HHI.PR ---
Review/Management Diagnosis 1. Paraplegia/ likely etiology is functional. 2. Elective mutism. 3. Paranoid schizophrenia. Plan I explained to the patient the finding of the cervical and lumbar spine imaging and the possible need for further testing, she denied, by writing, any further tests or medications Patient needs placement and rehab Please call for questions. Diagnosis/Plan: Subjective Subjective Comments No acute events reported Patient refuses any further testing and medications Sit in bed with sun glasses on her head, eating dinner and appears in good mood Active Medications Current Medications Medications (Trade) Dose Ordered Sig/Nimo Route Start Time Stop Time Status Last Admin (NS Flush) 2 ml UNSCH PRN IVF 07/01/16 16:15 (NS Flush) 2 ml UNSCH PRN IV FLUSH 07/01/16 19:00 (NS Flush) 2 ml BID IV FLUSH 07/01/16 21:00 07/03/16 10:02 (Tylenol) 650 mg Q4H PRN PO 07/01/16 19:00 (Zofran Inj) 4 mg Q6H PRN IVP 07/01/16 19:00 (Milk Of Magnesia Liq) 30 ml Q12H PRN PO 07/01/16 19:00 (Restoril) 15 mg HS PRN PO 07/01/16 19:00 Warfarin Sodium 6 mg 6 mg DAILY@16 PO 07/02/16 16:00 07/02/16 17:11 (Coumadin Consult Pharmacy) 0 ml @ 0 mls/hr UNSCH OTHER 07/01/16 20:45 (Lovenox Inj) 80 mg Q12H SQ 07/01/16 21:00 (Mycostatin Powder) 1 applic Q12HR TOPICAL 07/02/16 14:00 07/03/16 10:01 Allergies Allergies Coded Allergies No Known Allergies (Unverified07/01/16) Exam I&O / VS 07/02/16 07/02/16 07/03/16 15:00 23:00 07:00 Intake Total 380 ml Balance 380 ml Intake Oral 380 ml # Voids 2 # Bowel Movements 1 Vital Signs Date Time Temp Pulse Resp B/P Pulse Ox O2 Delivery O2 Flow Rate FiO2 07/03/16 17:29 96.5 67 22 116/63 96 07/03/16 12:13 98.1 65 19 112/62 98 07/03/16 08:18 97.9 61 20 101/70 95 07/03/16 04:23 97.8 57 16 127/72 94 07/02/16 23:19 97.9 62 18 112/68 94 07/02/16 20:49 98.2 65 18 115/70 94 Exam Comments General: Awake, overweight, answers questions through writing on paper. HEENT: Atraumatic, normocephalic. intact hearing. Neck: Trachea in the midline, no neck tenderness. Cardiovascular: Regular rate and rhythm. Respiratory: Clear to auscultation. No wheezes. Abdomen: Soft. Musculoskeletal: No clubbing, no cyanosis. Unable to move bilateral lower extremities Neurological: Awake, alert, mute. Communicates through writing. intact external ocular motility. Pupils are to 3 mm bilateral and symmetrical. No facial asymmetry. Upper extremities: left upper extremity 5/5, right upper extremity, finger flexion, and finger extension 5/5. She subconsciously moves the right upper extremity, however, during the examination, elbow flexion was 2, elbow extension 1, 0 shoulder abduction, bilateral lower extremities, grade 0, sensation is intact bilateral and symmetrical throughout. Reflexes bilateral upper extremities 2+, bilateral lower extremities 2+, plantars bilaterally downgoing. Unable to perform [id number]. No sensory level. Objective Radiology Results Last 72 hours Impressions Lower Extremity Ultrasound 07/03/16 0000 Signed Impressions: Service Date/Time: Sunday, July 03, 2016 10:36 - CONCLUSION: Normal examination. Dax Nagel MD Lung Scan Nuclear Medicine 07/02/16 0000 Signed Impressions: Service Date/Time: Saturday, July 02, 2016 15:23 - CONCLUSION: 1. Ventilation scan only. 2. Patchy distribution of radiotracer. Without the corresponding perfusion study, findings are nonspecific but could represent central trapping/COPD. Pulmonary embolus cannot be excluded. Devante Dumont MD Chest X-Ray 07/02/16 0000 Signed Impressions: Service Date/Time: Saturday, July 02, 2016 15:25 - CONCLUSION: No acute disease. Skip Vo MD Cervical Spine CT 07/02/16 0000 Signed Impressions: Service Date/Time: Saturday, July 02, 2016 17:35 - CONCLUSION: 1. No acute bony abnormality seen. 2. Degenerative change at multiple levels as described above. Skip Vo MD Head CT 07/01/16 1602 Signed Impressions: Service Date/Time: Friday, July 01, 2016 17:57 - CONCLUSION: Negative and unchanged noncontrast head CT. Skip Tapia MD Lumbar Spine CT 07/01/16 1430 Signed Impressions: Service Date/Time: Friday, July 01, 2016 14:41 - CONCLUSION: Degenerative changes as described above worse at L4-5 and L5-S1 to the right. Delon Garcia MD FACR Micro and Labs Laboratory Tests Test 07/03/16 07/03/16 05:00 12:14 Prothrombin Time 11.2 Prothromb Time International 1.0 Ratio D-Dimer Quantitative (PE/DVT) 2.37 Taras Nelson MD July 03, 2016 19:10
[2016-07-03 21:34] VITALS: BP 125/80; PULSE 69; RESP 18; TEMP 97.4; O2SAT 96
[2016-07-04 01:11] VITALS: BP 119/73; PULSE 60; RESP 22; TEMP 97.9; O2SAT 98
[2016-07-04 06:13] VITALS: BP 119/71; PULSE 52; RESP 18; TEMP 96.3; O2SAT 100
[2016-07-04 08:00] VITALS: BP 111/61; PULSE 62; RESP 18; TEMP 95.8; O2SAT 99
[2016-07-04] MEDS: ENOXAPARIN SODIUM 80 MG/0.8 ML SYRINGE SQ SCH ×2 (09:00→21:00)
[2016-07-04] MEDS: SODIUM CHLORIDE 0.9% FLUSH 10 ML FLUSH IV FLUSH SCH ×2 (09:00→21:00)
[2016-07-04] MEDS: NYSTATIN 100,000 U/GM PWD 15 GM BTL TOPICAL SCH ×2 (09:00→21:00)
--- NOTE | 2016-07-04 09:03 | HHI.PR ---
Subjective Remarks in no acute distress. still with bilateral lower extremity weakness. denies pain. refusing her coumadin and lovenox. Objective Vitals Vital Signs Date Time Temp Pulse Resp B/P Pulse Ox O2 Delivery O2 Flow Rate FiO2 07/04/16 08:00 95.8 62 18 111/61 99 07/04/16 06:13 96.3 52 18 119/71 100 07/04/16 01:11 97.9 60 22 119/73 98 07/03/16 21:34 97.4 69 18 125/80 96 07/03/16 17:29 96.5 67 22 116/63 96 07/03/16 12:13 98.1 65 19 112/62 98 I/O 07/03/16 07/03/16 07/03/16 07/04/16 07/04/16 07/04/16 07:00 15:00 23:00 07:00 15:00 23:00 # Voids 3 # Bowel Movements 1 Result Diagram: 07/01/16 1650 07/02/16 1020 Imaging Last Impressions Lower Extremity Ultrasound 07/03/16 0000 Signed Impressions: Service Date/Time: Sunday, July 03, 2016 10:36 - CONCLUSION: Normal examination. Dax Nagel MD Lung Scan Nuclear Medicine 07/02/16 0000 Signed Impressions: Service Date/Time: Saturday, July 02, 2016 15:23 - CONCLUSION: 1. Ventilation scan only. 2. Patchy distribution of radiotracer. Without the corresponding perfusion study, findings are nonspecific but could represent central trapping/COPD. Pulmonary embolus cannot be excluded. Devante Dumont MD Chest X-Ray 07/02/16 0000 Signed Impressions: Service Date/Time: Saturday, July 02, 2016 15:25 - CONCLUSION: No acute disease. Skip Vo MD Cervical Spine CT 07/02/16 0000 Signed Impressions: Service Date/Time: Saturday, July 02, 2016 17:35 - CONCLUSION: 1. No acute bony abnormality seen. 2. Degenerative change at multiple levels as described above. Skip Vo MD Head CT 07/01/16 1602 Signed Impressions: Service Date/Time: Friday, July 01, 2016 17:57 - CONCLUSION: Negative and unchanged noncontrast head CT. Skip Tapia MD Lumbar Spine CT 07/01/16 1430 Signed Impressions: Service Date/Time: Friday, July 01, 2016 14:41 - CONCLUSION: Degenerative changes as described above worse at L4-5 and L5-S1 to the right. Delon Garcia MD FACR Objective Remarks GENERAL: This is a well-nourished, well-developed patient, in no apparent distress. CARDIOVASCULAR: Regular rate and regular rhythm without murmurs, gallops, or rubs. RESPIRATORY: Clear to auscultation. Breath sounds equal bilaterally. No wheezes , rales, or rhonchi. GASTROINTESTINAL: Abdomen soft, non-tender, nondistended. Normal, active bowel sounds MUSCULOSKELETAL: Extremities without clubbing, cyanosis, or edema. NEURO: Alert & Oriented x4 to person, place, time, situation. weakness of both lower extremities. Medications and IVs Current Medications Sodium Chloride (NS Flush) 2 ml UNSCH PRN IVF FLUSH AFTER USING IV ACCESS; Start 07/01/16 at 16:15 Sodium Chloride (NS Flush) 2 ml UNSCH PRN IV FLUSH FLUSH AFTER USING IV ACCESS ; Start 07/01/16 at 19:00 Sodium Chloride (NS Flush) 2 ml BID IV FLUSH Last administered on 07/03/16t 21: 00; Start 07/01/16 at 21:00 Acetaminophen (Tylenol) 650 mg Q4H PRN PO TEMP > 100.4; Start 07/01/16 at 19:00 Ondansetron HCl (Zofran Inj) 4 mg Q6H PRN IVP NAUSEA OR VOMITING; Start at 19:00 Magnesium Hydroxide (Milk Of Magnesia Liq) 30 ml Q12H PRN PO CONSTIPATION; Start 07/01/16 at 19:00 Temazepam (Restoril) 15 mg HS PRN PO INSOMNIA; Start 07/01/16 at 19:00 Enoxaparin Sodium (Lovenox Inj) 40 mg Q24H SQ ; Start 07/01/16 at 20:00; Stop at 20:47; Status DC Warfarin Sodium 6 mg 6 mg DAILY@16 PO Last administered on 07/02/16 17:11; Start 07/02/16 at 16:00 Pharmacy Profile Note (Coumadin Consult Pharmacy) 0 ml @ 0 mls/hr UNSCH OTHER ; Start 07/01/16 at 20:45 Enoxaparin Sodium (Lovenox Inj) 80 mg Q12H SQ ; Start 07/01/16 at 21:00 Patient Medication Teaching (Coumadin Booklet) 1 ONCE ONCE .XX ; Start at 21:00; Stop 07/01/16 at 21:01; Status DC Nystatin (Mycostatin Powder) 1 applic Q12HR TOPICAL Last administered on t 21:01; Start 07/02/16 at 14:00 A/P Assessment and Plan A/P Bilateral Lower Extremity Weakness, Difficulty w/Ambulation: unclear etiology. Lumbar spine CT images reviewed, showed active changes present at L5-S1 generalized disc bulging and moderate encroachment at right L5 and S1 nerve root. C-spine CT shows no acute bony abnormality; degenerative changes at multiple levels. Patient refusing LP. Continue neuro checks. PT/OT consult, patient refuses to participate. neurology follow-up appreciated and recommended rehab. Subacute Pulmonary Embolism with Subtherapeutic INR: during previous hospitalization, patient refused TPA, she was treated with Heparin and Coumadin however patient now saying she never had a PE and is not on Coumadin. Restarted Coumadin with pharmacy consult, bridge with full strength Lovenox 80mg sq bid; however patient keeps refusing Lovenox/Coumadin. She does not believe she has a clot despite multiple attempts to explain this to her and show her imaging results. VQ scan done yesterday but nuclear medicine infiltrated IV and study was unable to be completed as patient refused another IV access. without anticoagulation, she is at significantly high risk of sudden and this was d/w the patient. Consulted palliative care to determine goals of treatment. Selective Mutism with Paranoid Schizophrenia: chronic, however suspect contributing to above weakness. Patient has been evaluated by psychiatry, appreciate recommendations. Noncompliance: patient currently refusing Lovenox and Coumadin as she does not believe she has blood clot. See discussion as above. Candidal intertrigo: under bilateral breasts. Start on Nystatin powder. DVT Prophylaxis: patient refusing coumadin/lovenox Discharge Planning difficult discharge. patient is homeless. d/w the case management. Teodoro Pritchett MD July 04, 2016 09:03
--- NOTE | 2016-07-04 10:38 | PD.CONS ---
Consult Service Palliative Care Consult Requested By Katina RUSSELL . Primary Care Physician Unknown . Reason for Consultation a. To assist with evaluation and management of symptoms including: pain, weakness, dyspnea b. To assist medical decision maker(s) with: better understanding of current medical conditions; weighing benefits/burdens of medical treatment options; making medical treatment decisions. . (Sonal Garcia) HPI History of Present Illness Ms. Masters is a 40 year old reportedly homeless, male who presented to [facility] ED on 07/01/2016 for evaluation of bilateral leg weakness 4 days. Patient reported the weakness had progressively worsened, denied any associated pain. Patient denied back pain. She was hospitalized from 06/08/16-06/24/16 for management of a saddle embolus. She refused TPA and was treated with Heparin and Coumadin. The patient's medical history is significant for paranoid schizophrenia and selective mutism. Neuropsychiatry was consulted during the patient's recent hospitalization and the patient was deemed competent. Patient was having some difficulty walking at that time; physical therapy and occupational therapy evaluated the patient. She was discharged with a rolling walker, however patient returned to a with the inability to walk. Patient stated she was taking no medications. She initially refused any sort of blood work, including a fingerstick or blood glucose. Additional diagnostic findings while in the ED include: * Vital signs: Pulse 83, respirations 16, BP 127/77, oxygen saturation 98% on room air, oral temperature 99.1 * WBC: 9.9, hemoglobin 12.4, hematocrit 37.9, platelets 335, neutrophils 58.9% * Sodium: 142, potassium 3.5, chloride 108, carbon dioxide 25.3, glucose 92, calcium 8.7, magnesium 2.0 * BUN: 15, creatinine 0.81, GFR 78 * Total bilirubin: 0.7, AST 14, ALT 32, alkaline phosphatase 51 * Total protein: 6.8, albumin 3.3 * PT: 11.3, INR 1.0, APTT 24.2 * EKG shows a sinus rhythm with no acute ischemic change * Lumbar spine CT revealed degenerative changes, most significant at L4-5 and L5 -S1 to the right. * Head CT was negative and unchanged in comparison to previous imaging After much coaxing, the patient agreed to blood work. Subtherapeutic INR of 1.1. Initial urine specimen was grossly contaminated with feces, given patient' s resistance to diagnostic testing obtaining adequate replacement for urine sample was not entertained. Patient was admitted for further evaluation; neurology and psychiatry were consulted. Patient was restarted on Coumadin; Lovenox BID until INR is therapeutic. Neurology evaluated the patient's bilateral lower extremity weakness. Patient reporting a 4 day history of progressively increased bilateral lower extremity weakness prior to admission. She denied associated pain; denied back pain. Previous diagnostic results: CT lumbar spine showed degenerative changes (L5- S1 to the right); CT head was negative for acute intracranial process; Lung scan showed patchy distribution of radiotracer without the perfusion study, findings were nonspecific, PE cannot be excluded. Dr. Nelson (neurologist) recommended cervical spine CT which revealed no acute bony abnormalities, degenerative changes were noted again at multiple levels. Patient is currently refusing to take anticoagulation medications. Palliative Care was consulted to assist with symptom management and to discuss with the patient the benefits and burdens of her current illnesses and the options regarding future care. The patient was writing to indicate on exam. Patient communicates she will not take medication because she did not come to the hospital for a PE. She came because she can now walk. . Function/Cognitive Trajectory Per review of EMR, the patient's mother confirms the diagnosis of paranoid schizophrenia. She states "Evan Masters" is not the patient's real name. Apparently the patient has been in and out of hospitals for many years, but she disappeared several years ago. The mother she thought her daughter was and she had not seen her in 9 years until last week. Patient was discharged on 06/24 after being hospitalized for approximately 2 weeks with saddle PE. At that time the patient was having some difficulty walking; she was discharged with a rolling walker. Patient returned [facility] ED 7 days later and was unable to walk. . (Sonal Garcia) Review of Systems ROS Limitations: Uncooperative, Speech Impaired (elective mutism), Poor Historian Constitutional: COMPLAINS OF: Generalized weakness (unable to ambulate), DENIES: Pain Ears, nose, mouth, throat: DENIES: Epistaxis Respiratory: DENIES: Shortness of breath Cardiovascular: DENIES: Dyspnea on Exertion Gastrointestinal: DENIES: Anorexia Neurologic: COMPLAINS OF: Localized weakness, Paresthesias, Speech Problems Psychiatric: COMPLAINS OF: Mood changes, DENIES: Suicidal Ideation, Homicidal Ideation (Sonal Garcia) Past Family Social History Coded Allergies: No Known Allergies (Unverified , 07/01/16) Past Medical History Paranoid schizophrenia Elective mutism History of pulmonary embolism, on Coumadin . Past Surgical History No known surgical history . Reported Medications Coumadin (Warfarin) 6 Mg Tab 6 Mg PO DAILY@16 30 Days . Current Medications Medications (Trade) Dose Ordered Sig/Nimo Route Start Time Stop Time Status Last Admin (NS Flush) 2 ml UNSCH PRN IVF 07/01/16 16:15 (NS Flush) 2 ml UNSCH PRN IV FLUSH 07/01/16 19:00 (NS Flush) 2 ml BID IV FLUSH 07/01/16 21:00 07/03/16 21:00 (Tylenol) 650 mg Q4H PRN PO 07/01/16 19:00 (Zofran Inj) 4 mg Q6H PRN IVP 07/01/16 19:00 (Milk Of Magnesia Liq) 30 ml Q12H PRN PO 07/01/16 19:00 (Restoril) 15 mg HS PRN PO 07/01/16 19:00 Warfarin Sodium 6 mg 6 mg DAILY@16 PO 07/02/16 16:00 07/02/16 17:11 (Coumadin Consult Pharmacy) 0 ml @ 0 mls/hr UNSCH OTHER 07/01/16 20:45 (Lovenox Inj) 80 mg Q12H SQ 07/01/16 21:00 (Mycostatin Powder) 1 applic Q12HR TOPICAL 07/02/16 14:00 07/03/16 21:01 . Family History Unobtainable, patient answers questions selectively. Additional information pending conversation with patient's mother. . Substance Use Tobacco: None known Alcohol: None known Prescription med abuse: None known Illicits: None known . Psychosocial History Per review of EMR, patient has a long history of paranoid schizophrenia with multiple hospitalizations. Patient is reportedly homeless. Her mother states she disappeared approximately 9 years ago; the mother's first contact when her with her daughter was last week. . Spiritual/Cultural Factors None . (Sonal Garcia) Documented care wishes: No documented care wishes are available. . Today's verbally stated goals: Patient verbalizing aggressive goals. She states she is not taking her anticoagulation medication because she did not come to the hospital for a pulmonary embolus, she came because she can't walk. . Ethical and Legal Issues Patient is alert and oriented to person, place and time; she demonstrates a good understanding of medical terminology. Patient has a long history of schizophrenia and elective mutism. On exam she did not speak, but communicated in writing. She is currently refusing anticoagulation therapy for subacute pulmonary embolism with subtherapeutic INR despite being told that she is at high risk for sudden ; the patient's rationale is that she came to the hospital because of her BLE weakness, therefore it is not possible that she has a PE. She states she does not have a PE and has no history of this medical condition. Given the patient's underlying mental illness with paranoia, it is likely she is unable to consider the benefits versus burdens of her medical treatment decisions. Recommendations for psychiatry to evaluate patient to determine capacity. . (Sonal Garcia) Physical Exam Vital Signs Date Time Temp Pulse Resp B/P Pulse Ox O2 Delivery O2 Flow Rate FiO2 07/04/16 08:00 95.8 62 18 111/61 99 07/04/16 06:13 96.3 52 18 119/71 100 07/04/16 01:11 97.9 60 22 119/73 98 07/03/16 21:34 97.4 69 18 125/80 96 07/03/16 17:29 96.5 67 22 116/63 96 07/03/16 12:13 98.1 65 19 112/62 98 . 07/03/16 07/04/16 18:59 06:59 # Voids 3 . Exam CONSTITUTIONAL/GENERAL: This is an adequately nourished patient, in no apparent distress. TUBES/LINES/DRAINS: PIV SKIN: No jaundice, rashes, or lesions. Ecchymoses on upper extremities. No wounds seen anteriorly. Skin temperature appropriate. Not diaphoretic. HEAD: Atraumatic. Normocephalic. EYES: Pupils equal and round and reactive. Extraocular motions intact. No scleral icterus. No injection or drainage. Fundi not examined. ENT: Hearing grossly normal. Nose without bleeding or purulent drainage. NECK: Trachea midline. Supple, nontender. No palpable thyroid enlargement or nodularity. CARDIOVASCULAR: Regular rate and rhythm without murmurs, gallops, or rubs. No JVD. Peripheral pulses symmetric. RESPIRATORY/CHEST: Symmetric, unlabored respirations. Clear to auscultation. Breath sounds equal bilaterally. No wheezes, rales, or rhonchi. GASTROINTESTINAL: Abdomen soft, non-tender, nondistended. GENITOURINARY: Without palpable bladder distension. MUSCULOSKELETAL: Extremities without clubbing, cyanosis, or edema. LYMPHATICS: No palpable cervical or supraclavicular adenopathy. NEUROLOGICAL: Awake and alert; BLE weakness. PSYCHIATRIC: Selective mutism; paranoid schizophrenia. No suicidal/homicidal ideation. . (Sonal Garcia) Diagnostic Tests Laboratory Laboratory Tests Test 07/01/16 07/02/16 07/03/16 07/03/16 16:50 10:20 05:00 12:14 White Blood Count 9.9 TH/MM3 (4.0-11.0) Red Blood Count 4.38 MIL/MM3 (4.00-5.30) Hemoglobin 12.4 GM/DL (11.6-15.3) Hematocrit 37.9 % (35.0-46.0) Mean Corpuscular Volume 86.5 FL (80.0-100.0) Mean Corpuscular Hemoglobin 28.2 PG (27.0-34.0) Mean Corpuscular Hemoglobin 32.7 % Concent (32.0-36.0) Red Cell Distribution Width 15.2 % (11.6-17.2) Platelet Count 335 TH/MM3 (150-450) Mean Platelet Volume 8.1 FL (7.0-11.0) Neutrophils (%) (Auto) 58.9 % (16.0-70.0) Lymphocytes (%) (Auto) 32.0 % (9.0-44.0) Monocytes (%) (Auto) 4.7 % (0.0-8.0) Eosinophils (%) (Auto) 3.7 % (0.0-4.0) Basophils (%) (Auto) 0.7 % (0.0-2.0) Neutrophils # (Auto) 5.7 TH/MM3 (1.8-7.7) Lymphocytes # (Auto) 3.2 TH/MM3 (1.0-4.8) Monocytes # (Auto) 0.5 TH/MM3 (0-0.9) Eosinophils # (Auto) 0.4 TH/MM3 (0-0.4) Basophils # (Auto) 0.1 TH/MM3 (0-0.2) CBC Comment DIFF FINAL Differential Comment Prothrombin Time 11.3 SEC 11.8 SEC 11.2 SEC (9.8-11.6) (9.8-11.6) (9.8-11.6) Prothromb Time International 1.0 RATIO 1.1 RATIO 1.0 RATIO Ratio Activated Partial 24.2 SEC Thromboplast Time (24.3-30.1) Sodium Level 142 MEQ/L 143 MEQ/L (136-145) (136-145) Potassium Level 3.5 MEQ/L 4.0 MEQ/L (3.5-5.1) (3.5-5.1) Chloride Level 108 MEQ/L 109 MEQ/L (98-107) (98-107) Carbon Dioxide Level 25.3 MEQ/L 25.9 MEQ/L (21.0-32.0) (21.0-32.0) Anion Gap 9 MEQ/L (5-15) 8 MEQ/L (5-15) Blood Urea Nitrogen 15 MG/DL (7-18) 15 MG/DL (7-18) Creatinine 0.81 MG/DL 0.79 MG/DL (0.50-1.00) (0.50-1.00) Estimat Glomerular Filtration 78 ML/MIN (>89) 80 ML/MIN (>89) Rate Random Glucose 92 MG/DL 143 MG/DL (74-106) (74-106) Calcium Level 8.7 MG/DL 8.7 MG/DL (8.5-10.1) (8.5-10.1) Magnesium Level 2.0 MG/DL (1.5-2.5) Total Bilirubin 0.7 MG/DL 0.5 MG/DL (0.2-1.0) (0.2-1.0) Aspartate Amino Transf 14 U/L (15-37) 13 U/L (15-37) (AST/SGOT) Alanine Aminotransferase 32 U/L (10-53) 27 U/L (10-53) (ALT/SGPT) Alkaline Phosphatase 51 U/L (45-117) 53 U/L (45-117) Total Protein 6.8 GM/DL 6.4 GM/DL (6.4-8.2) (6.4-8.2) Albumin 3.3 GM/DL 2.9 GM/DL (3.4-5.0) (3.4-5.0) Erythrocyte Sedimentation Rate 13 mm/hr (0-20) Total Creatine Kinase 64 U/L (26-192) Human Chorionic Gonadotropin, 5 MIU/ML (0-5) Quant D-Dimer Quantitative (PE/DVT) 2.37 MG/L FEU (0.00-0.50) . (Sonal Garcia) Result Diagram: 07/01/16 1650 07/02/16 1020 Imaging Last 72 hours Impressions Lower Extremity Ultrasound 07/03/16 0000 Signed Impressions: Service Date/Time: Sunday, July 03, 2016 10:36 - CONCLUSION: Normal examination. Dax Nagel MD Lung Scan Nuclear Medicine 07/02/16 0000 Signed Impressions: Service Date/Time: Saturday, July 02, 2016 15:23 - CONCLUSION: 1. Ventilation scan only. 2. Patchy distribution of radiotracer. Without the corresponding perfusion study, findings are nonspecific but could represent central trapping/COPD. Pulmonary embolus cannot be excluded. Devante Dumont MD Chest X-Ray 07/02/16 0000 Signed Impressions: Service Date/Time: Saturday, July 02, 2016 15:25 - CONCLUSION: No acute disease. Skip Vo MD Cervical Spine CT 07/02/16 0000 Signed Impressions: Service Date/Time: Saturday, July 02, 2016 17:35 - CONCLUSION: 1. No acute bony abnormality seen. 2. Degenerative change at multiple levels as described above. Skip Vo MD . (Sonal Garcia) Patient/Family Conference Present at Family Conference: Spoke with patient briefly at bedside . Issues Discussed: * Palliative care role, purpose, approach * Patient/family understanding of the current medical problems * Current medical treatment options and benefits/burdens of those options * Questions answered to the best of my ability * Palliative care contact information provided . (Sonal Garcia) Assessment and Plan Disease Oriented Problem List: (1) Paranoid schizophrenia (2) Elective mutism (3) HNP (herniated nucleus pulposus), lumbar (4) Saddle embolus of pulmonary artery Symptom Scale: (1) Pain Comment: Patient denies pain on exam (2) Weakness Comment: Patient presented to [facility] 07/01/16 for evaluation of BLE weakness, difficulty ambulating; etiology unclear. CT lumbar spine showing degeneration at L5-S1, generalized disc bulging and moderate encroachment at right L5 and S1 nerve root; C-spine CT shows no acute bony abnormalities, degenerative changes at multiple levels. Patient refusing LP PT/OT have been consulted; patient refusing. (3) Dyspnea Pertinent Non-Medical Issues Psychosocial: Per review of EMR, patient has a long history of paranoid schizophrenia with multiple hospitalizations. Patient is reportedly homeless. Her mother states she disappeared approximately 9 years ago; the mother's first contact when her with her daughter was last week. Spiritual: None episcopalian Legal: Per [place] statutes, and absence of written instructions healthcare proxy decision-making falls to the patient's mother Ethical issues impacting care: No known ethical issues impacting care at this time. . . Important Contacts Sonal Hernandez, mother: [phone] . Code Status: Alternative Code (NO ACLS MEDICATION) Plan * ALTERNATE CODE * Decision-making: Per [place] statutes, in the absence of written advanced directives healthcare proxy decision making would fall to the patient's mother * Goals: Goals remain aggressive. * Patient is alert and oriented to person, place and time; she demonstrates a good understanding of medical terminology. Patient has a long history of schizophrenia and elective mutism. On exam she did not speak, but communicated in writing. She is currently refusing anticoagulation therapy for subacute pulmonary embolism with subtherapeutic INR despite being told that she is at high risk for sudden ; the patient's rationale is that she came to the hospital because of her BLE weakness, therefore it is not possible that she has a PE. She states she does not have a PE and has no history of this medical condition. Given the patient's underlying mental illness with paranoia, it is likely she is unable to consider the benefits versus burdens of her medical treatment decisions. Recommendations for psychiatry to evaluate patient to determine capacity. * Symptom managementweakness: Patient presented to [facility] 07/01/16 for evaluation of BLE weakness, difficulty ambulating; etiology unclear. CT lumbar spine showing degeneration at L5-S1, generalized disc bulging and moderate encroachment at right L5 and S1 nerve root; C-spine CT shows no acute bony abnormalities, degenerative changes at multiple levels. Patient refusing LP. PT/ OT have been consulted; patient refusing. * Symptom managementdyspnea: Patient denies dyspnea on exam. Recently hospitalized from 06/08/16-06/24/16 with saddle PE, patient refused TPA, treated with Heparin and Coumadin. Patient diagnosed with subacute pulmonary embolism with subtherapeutic INR. Patient was started on Coumadin/Lovenox at admission, but she is refusing medications stating she came to the hospital because her legs are weak and she does not have a PE. Unable to complete VQ scan secondary to loss of IV access, subsequent refusal of procedure. * Palliative contact information was left with the patient at bedside * Palliative care will continue to follow this patient throughout her hospitalization to establish trust, assist with symptom management and clarification of medical treatment goals. . (Sonal Garcia) Thank you for the opportunity to participate in the care of Ms. Pan. . (Sonal Garcia) Attestation To help prompt me to consider important information that might be impacting today's encounter and assessment, information from prior notes written by myself or my colleagues may have been "brought forward" into today's note. My signature on this note, however, is an attestation that I personally performed the exam, history, and/or decision-making noted today, and, unless otherwise indicated, the interactions with patient, family, and staff as well as the review of records all occurred today. I also attest that the listed assessment and stated plan reflect my best clinical judgment today based on the combination of historical information, prior notes, and today's exam/ interactions. When time spent is documented, it refers only to time spent today by the signer, or if indicated, combined time spent today by collaborating physician/nurse practitioner. . (Sonal Garcia) Collaborating MD Comments . Chart reviewed. Case discussed with palliative care SNOW REMOVER. I have reviewed above SNOW REMOVER note and I concur. . (Don Riddle MD) Sonal Garcia July 04, 2016 10:38 Don Riddle MD July 12, 2016 12:45
[2016-07-04 12:00] VITALS: BP 115/59; PULSE 66; RESP 18; TEMP 98; O2SAT 99
[2016-07-04 16:00] VITALS: BP 114/63; PULSE 66; RESP 18; TEMP 97.9; O2SAT 96
[2016-07-04] MEDS: WARFARIN SOD 6 MG TAB PO SCH (16:00)
--- NOTE | 2016-07-04 16:29 | OTSOAPIP ---
TIME SESSION COMPLETED: 1600 TREATMENT TIME: 0 MINS. CHART REVIEWED. S: PAIN: NO PAIN. PATIENT KNOWN TO THERAPIST FROM LAST ADMISSION. REQUESTS TO BE CALLED MARI ALTHOUGH A FEMALE. O: PATIENT SITTING UPRIGHT IN BED AND NOT WEARING SUNGLASSES. PATIENT SHAKES HER HEAD NO THERAPIST INTRODUCING HERSELF. THERAPIST CLARIFIED IF SHE IS SAYING NO TO ALL THERAPY OR JUST UNTIL SHE MEETS WITH NEUROLOGIST PER PHYSICAL THERAPY NOTE. PATIENT CONTINUES TO SHAKE HER HEAD NO. CONTINUES TO CHANGE TV STATIONS AND DEPRESSES CALL BUTTON. THERAPIST ASKED IF SHE COULD ASSIST PATIENT WITH ANY TASKS BUT WOULD NOT RESPOND. NOTIFIED BOX STACKER OF CURRENT STATUS. A: PATIENT RESPONSE TO TREATMENT:EVALUATION NOT COMPLETED P: WILL REATTEMPT TOMORROW _X_ PT WAS INSTRUCTED TO NOT GET OUT OF BED OR CHAIR WITHOUT ASSISTANCE. CALL HICKS WAS LEFT WITHIN REACH. DISABILITIES ELEMENTS SCORE - SELF-FEEDING __X__ 4 = INDEPENDENT: EATS FROM A DISH AND DRINKS FROM A CUP OR GLASS PRESENTED IN THE CUSTOMARY MANNER ON TABLE OR TRAY. USES ORDINARY KNIFE, FORK, AND SPOON. ____ 3 = INDEPENDENT WITH DEVICE: USES AN ADAPTIVE OR ASSISTING DEVICE SUCH A STRAW, SPORK, OR ROCKING KNIFE OR REQUIRES MORE THAN A REASONABLE TIME TO EAT. ____ 2 = DEPENDENT - PARTIAL HELP REQUIRED: PERFORMS HALF OR MORE OF FEEDING TASKS BUT REQUIRES SUPERVISION (E.G., STANDBY, CUEING, OR COAXING), SETUP (APPLICATION OF ORTHOTICS), OR OTHER HELP. ____ 1 = DEPENDENT - TOTAL HELP REQUIRED: EITHER PERFORMS LESS THAN HALF OF FEEDING TASKS, OR DOES NOT EAT OR DRINK FULL MEALS BY MOUTH AND RELIES AT LEAST IN PART ON OTHER MEANS OF ALIMENTATION, SUCH PARENTERAL OR GASTROSTOMY FEEDINGS. INTERDISCIPLINARY COMMUNICATION:ELECTRONIC MEDICAL RECORD AND NURSING NOTIFIED DISCHARGE RECOMMENDATION/ATTENTION CASE MANAGEMENT: EQUIPMENT: ___ 3-1 BEDSIDE COMMODE ___ DROP ARM COMMODE ___ SLIDING BOARD ___ SHOWER BENCH ___ NONE ___ OTHER: CONTINUED THERAPY: ___ OT AT REHAB ___ HOME WITH NO OT RECOMMENDED ___ HOME WITH HOME HEALTH OT ___ HOME WITH OUT PATIENT OT ___ REQUIRES SUPERVISION AT HOME FOR SAFETY ___ OTHER: Therapist: Lyric Pete OTR/L Signature on file
[2016-07-04 22:03] VITALS: BP 117/66; PULSE 67; RESP 18; TEMP 97.9; O2SAT 96
[2016-07-05 00:52] VITALS: BP 121/63; PULSE 76; RESP 18; TEMP 97.8; O2SAT 98
[2016-07-05 06:17] VITALS: BP 107/64; PULSE 63; RESP 20; TEMP 96.2; O2SAT 99
[2016-07-05 08:34] VITALS: BP 117/86; PULSE 62; RESP 16; TEMP 96.6; O2SAT 98
[2016-07-05] MEDS: ENOXAPARIN SODIUM 80 MG/0.8 ML SYRINGE SQ SCH ×2 (09:00→21:00)
[2016-07-05] MEDS: SODIUM CHLORIDE 0.9% FLUSH 10 ML FLUSH IV FLUSH SCH ×2 (09:00→21:00)
[2016-07-05] MEDS: NYSTATIN 100,000 U/GM PWD 15 GM BTL TOPICAL SCH ×2 (09:00→21:00)
--- NOTE | 2016-07-05 12:04 | HHI.PR ---
Subjective Remarks in no acute distress. denies pain. still with weakness of the legs. Objective Vitals Vital Signs Date Time Temp Pulse Resp B/P Pulse Ox O2 Delivery O2 Flow Rate FiO2 07/05/16 08:34 96.6 62 16 117/86 98 07/05/16 06:17 96.2 63 20 107/64 99 07/05/16 00:52 97.8 76 18 121/63 98 07/04/16 22:03 97.9 67 18 117/66 96 07/04/16 16:00 97.9 66 18 114/63 96 07/04/16 12:00 98.0 66 18 115/59 99 I/O 07/04/16 07/04/16 07/04/16 07/05/16 07/05/16 07/05/16 06:59 14:59 22:59 06:59 14:59 22:59 Intake Total 960 ml Balance 960 ml Intake Oral 960 ml # Voids 3 1 # Bowel Movements 0 1 Result Diagram: 07/01/16 1650 07/02/16 1020 Imaging Last Impressions Lower Extremity Ultrasound 07/03/16 0000 Signed Impressions: Service Date/Time: Sunday, July 03, 2016 10:36 - CONCLUSION: Normal examination. Dax Nagel MD Lung Scan Nuclear Medicine 07/02/16 0000 Signed Impressions: Service Date/Time: Saturday, July 02, 2016 15:23 - CONCLUSION: 1. Ventilation scan only. 2. Patchy distribution of radiotracer. Without the corresponding perfusion study, findings are nonspecific but could represent central trapping/COPD. Pulmonary embolus cannot be excluded. Devante Dumont MD Chest X-Ray 07/02/16 0000 Signed Impressions: Service Date/Time: Saturday, July 02, 2016 15:25 - CONCLUSION: No acute disease. Skip Vo MD Cervical Spine CT 07/02/16 0000 Signed Impressions: Service Date/Time: Saturday, July 02, 2016 17:35 - CONCLUSION: 1. No acute bony abnormality seen. 2. Degenerative change at multiple levels as described above. Skip Vo MD Head CT 07/01/16 1602 Signed Impressions: Service Date/Time: Friday, July 01, 2016 17:57 - CONCLUSION: Negative and unchanged noncontrast head CT. Skip Tapia MD Lumbar Spine CT 07/01/16 1430 Signed Impressions: Service Date/Time: Friday, July 01, 2016 14:41 - CONCLUSION: Degenerative changes as described above worse at L4-5 and L5-S1 to the right. Delon Garcia MD FACR Objective Remarks GENERAL: This is a well-nourished, well-developed patient, in no apparent distress. CARDIOVASCULAR: Regular rate and regular rhythm without murmurs, gallops, or rubs. RESPIRATORY: Clear to auscultation. Breath sounds equal bilaterally. No wheezes , rales, or rhonchi. GASTROINTESTINAL: Abdomen soft, non-tender, nondistended. Normal, active bowel sounds MUSCULOSKELETAL: Extremities without clubbing, cyanosis, or edema. NEURO: Alert & Oriented x4 to person, place, time, situation. weakness of both lower extremities. Medications and IVs Current Medications Sodium Chloride (NS Flush) 2 ml UNSCH PRN IVF FLUSH AFTER USING IV ACCESS; Start 07/01/16 at 16:15 Sodium Chloride (NS Flush) 2 ml UNSCH PRN IV FLUSH FLUSH AFTER USING IV ACCESS ; Start 07/01/16 at 19:00 Sodium Chloride (NS Flush) 2 ml BID IV FLUSH Last administered on 07/03/16 21: 00; Start 07/01/16 at 21:00 Acetaminophen (Tylenol) 650 mg Q4H PRN PO TEMP > 100.4; Start 07/01/16 at 19:00 Ondansetron HCl (Zofran Inj) 4 mg Q6H PRN IVP NAUSEA OR VOMITING; Start at 19:00 Magnesium Hydroxide (Milk Of Magnesia Liq) 30 ml Q12H PRN PO CONSTIPATION; Start 07/01/16 at 19:00 Temazepam (Restoril) 15 mg HS PRN PO INSOMNIA; Start 07/01/16 at 19:00 Enoxaparin Sodium (Lovenox Inj) 40 mg Q24H SQ ; Start 07/01/16 at 20:00; Stop at 20:47; Status DC Warfarin Sodium 6 mg 6 mg DAILY@16 PO Last administered on 07/02/16 17:11; Start 07/02/16 at 16:00 Pharmacy Profile Note (Coumadin Consult Pharmacy) 0 ml @ 0 mls/hr UNSCH OTHER ; Start 07/01/16 at 20:45 Enoxaparin Sodium (Lovenox Inj) 80 mg Q12H SQ ; Start 07/01/16 at 21:00 Patient Medication Teaching (Coumadin Booklet) 1 ONCE ONCE .XX ; Start at 21:00; Stop 07/01/16 at 21:01; Status DC Nystatin (Mycostatin Powder) 1 applic Q12HR TOPICAL Last administered on t 21:01; Start 07/02/16 at 14:00 A/P Assessment and Plan A/P Bilateral Lower Extremity Weakness, Difficulty w/Ambulation: unclear etiology. Lumbar spine CT images reviewed, showed active changes present at L5-S1 generalized disc bulging and moderate encroachment at right L5 and S1 nerve root. C-spine CT shows no acute bony abnormality; degenerative changes at multiple levels. Patient refusing LP. Continue neuro checks. PT/OT consult, patient refuses to participate. neurology follow-up appreciated and recommended rehab. Subacute Pulmonary Embolism with Subtherapeutic INR: during previous hospitalization, patient refused TPA, she was treated with Heparin and Coumadin however patient now saying she never had a PE and is not on Coumadin. Restarted Coumadin with pharmacy consult, bridge with full strength Lovenox 80mg sq bid; however patient keeps refusing Lovenox/Coumadin. She does not believe she has a clot despite multiple attempts to explain this to her and show her imaging results. VQ scan done yesterday but nuclear medicine infiltrated IV and study was unable to be completed as patient refused another IV access. without anticoagulation, she is at significantly high risk of sudden and this was d/w the patient. Consulted palliative care to determine goals of treatment. Selective Mutism with Paranoid Schizophrenia: chronic, however suspect contributing to above weakness. Patient has been evaluated by psychiatry, appreciate recommendations. Noncompliance: patient currently refusing Lovenox and Coumadin as she does not believe she has blood clot. See discussion as above. Candidal intertrigo: under bilateral breasts. Start on Nystatin powder. DVT Prophylaxis: patient refusing coumadin/lovenox Discharge Planning difficult discharge. patient is homeless. d/w the case management. d/w the mother; kiersten; [phone]. Teodoro Pritchett MD July 05, 2016 12:03
[2016-07-05 12:40] VITALS: BP 119/80; PULSE 65; RESP 16; TEMP 98.6; O2SAT 97
[2016-07-05 13:33] LABS: INTERNATIONAL NORMALIZED RATIO 0.9 RATIO; PROTHROMBIN TIME - PATIENT 10.1 SEC (9.8-11.6)
--- NOTE | 2016-07-05 14:02 | HHI.HCPN ---
Palliative Care discussed patient's hospital course with Dr. Pritchett. Patient having ongoing BLE weakness; subacute pulmonary embolism with subtherapeutic INR. Patient continues to refuse further diagnostic procedures; refusing Lovenox and Coumadin as she does not believe she has a blood clot. Palliative care will continue to follow patient weekly and PRN. . (Sonal Garcia) . Chart reviewed. Case discussed with palliative care HARDWARE INSTALLER. I have reviewed above HARDWARE INSTALLER note and I concur. . (Don Riddle MD) Sonal Garcia July 05, 2016 14:02 Don Riddle MD July 12, 2016 12:45
[2016-07-05] MEDS: WARFARIN SOD 6 MG TAB PO SCH (15:13)
--- NOTE | 2016-07-05 16:21 | OTSOAPIP ---
TIME SESSION COMPLETED: PM TREATMENT TIME: 0 MINS. CHART REVIEWED. O: PT ADAMANTLY DECLINE OCCUPATIONAL THERAPY SERVICES DESPITE THIS BEING THIRD ATTEMPT. PT WROTE DOWN ON PAPER THAT IF SHE CHANGES HER MIND SHE WILL LET THE DOCTOR KNOW. WILL SIGN OFF. Therapist: GERMÁN ALARCON OT/L Signature on file
[2016-07-05 20:10] VITALS: BP 107/61; PULSE 70; RESP 16; TEMP 97.3; O2SAT 96
[2016-07-06 00:32] VITALS: BP 93/69; PULSE 85; RESP 16; TEMP 97.1; O2SAT 99
[2016-07-06 04:58] VITALS: BP 115/63; PULSE 64; RESP 16; TEMP 97.6; O2SAT 100
[2016-07-06 07:56] VITALS: BP 106/63; PULSE 67; RESP 20; TEMP 96.2; O2SAT 97
[2016-07-06 07:59] LABS: INTERNATIONAL NORMALIZED RATIO 0.9 RATIO; PROTHROMBIN TIME - PATIENT 9.6 SEC (9.8-11.6)
[2016-07-06] MEDS: NYSTATIN 100,000 U/GM PWD 15 GM BTL TOPICAL SCH ×2 (09:00→21:00)
[2016-07-06] MEDS: SODIUM CHLORIDE 0.9% FLUSH 10 ML FLUSH IV FLUSH SCH ×2 (09:00→21:00)
[2016-07-06] MEDS: ENOXAPARIN SODIUM 80 MG/0.8 ML SYRINGE SQ SCH ×2 (09:00→21:00)
--- NOTE | 2016-07-06 11:53 | HHI.PR ---
Subjective Remarks in no distress. still with lower extremity weakness. no new complaints. Objective Vitals Vital Signs Date Time Temp Pulse Resp B/P Pulse Ox O2 Delivery O2 Flow Rate FiO2 07/06/16 07:56 96.2 67 20 106/63 97 07/06/16 04:58 97.6 64 16 115/63 100 07/06/16 00:32 97.1 85 16 93/69 99 07/05/16 20:10 97.3 70 16 107/61 96 07/05/16 12:40 98.6 65 16 119/80 97 I/O 07/05/16 07/05/16 07/05/16 07/06/16 07/06/16 07/06/16 07:00 15:00 23:00 07:00 15:00 23:00 Intake Total 240 ml 720 ml Balance 240 ml 720 ml Intake Oral 240 ml 720 ml # Voids 1 6 # Bowel Movements 1 1 Result Diagram: 07/01/16 1650 07/02/16 1020 Imaging Last Impressions Lower Extremity Ultrasound 07/03/16 0000 Signed Impressions: Service Date/Time: Sunday, July 03, 2016 10:36 - CONCLUSION: Normal examination. Dax Nagel MD Lung Scan Nuclear Medicine 07/02/16 0000 Signed Impressions: Service Date/Time: Saturday, July 02, 2016 15:23 - CONCLUSION: 1. Ventilation scan only. 2. Patchy distribution of radiotracer. Without the corresponding perfusion study, findings are nonspecific but could represent central trapping/COPD. Pulmonary embolus cannot be excluded. Devante Dumont MD Chest X-Ray 07/02/16 0000 Signed Impressions: Service Date/Time: Saturday, July 02, 2016 15:25 - CONCLUSION: No acute disease. Skip Vo MD Cervical Spine CT 07/02/16 0000 Signed Impressions: Service Date/Time: Saturday, July 02, 2016 17:35 - CONCLUSION: 1. No acute bony abnormality seen. 2. Degenerative change at multiple levels as described above. Skip Vo MD Head CT 07/01/16 1602 Signed Impressions: Service Date/Time: Friday, July 01, 2016 17:57 - CONCLUSION: Negative and unchanged noncontrast head CT. Skip Tapia MD Lumbar Spine CT 07/01/16 1430 Signed Impressions: Service Date/Time: Friday, July 01, 2016 14:41 - CONCLUSION: Degenerative changes as described above worse at L4-5 and L5-S1 to the right. Delon Garcia MD FACR Objective Remarks GENERAL: This is a well-nourished, well-developed patient, in no apparent distress. CARDIOVASCULAR: Regular rate and regular rhythm without murmurs, gallops, or rubs. RESPIRATORY: Clear to auscultation. Breath sounds equal bilaterally. No wheezes , rales, or rhonchi. GASTROINTESTINAL: Abdomen soft, non-tender, nondistended. Normal, active bowel sounds MUSCULOSKELETAL: Extremities without clubbing, cyanosis, or edema. NEURO: Alert & Oriented x4 to person, place, time, situation. weakness of both lower extremities. Medications and IVs Current Medications Sodium Chloride (NS Flush) 2 ml UNSCH PRN IVF FLUSH AFTER USING IV ACCESS; Start 07/01/16 at 16:15 Sodium Chloride (NS Flush) 2 ml UNSCH PRN IV FLUSH FLUSH AFTER USING IV ACCESS ; Start 07/01/16 at 19:00 Sodium Chloride (NS Flush) 2 ml BID IV FLUSH Last administered on 07/03/16t 21: 00; Start 07/01/16 at 21:00 Acetaminophen (Tylenol) 650 mg Q4H PRN PO TEMP > 100.4; Start 07/01/16 at 19:00 Ondansetron HCl (Zofran Inj) 4 mg Q6H PRN IVP NAUSEA OR VOMITING; Start at 19:00 Magnesium Hydroxide (Milk Of Magnesia Liq) 30 ml Q12H PRN PO CONSTIPATION; Start 07/01/16 at 19:00 Temazepam (Restoril) 15 mg HS PRN PO INSOMNIA; Start 07/01/16 at 19:00 Enoxaparin Sodium (Lovenox Inj) 40 mg Q24H SQ ; Start 07/01/16 at 20:00; Stop at 20:47; Status DC Warfarin Sodium 6 mg 6 mg DAILY@16 PO Last administered on 07/02/16 17:11; Start 07/02/16 at 16:00 Pharmacy Profile Note (Coumadin Consult Pharmacy) 0 ml @ 0 mls/hr UNSCH OTHER ; Start 07/01/16 at 20:45; Stop 07/05/16 at 16:42; Status DC Enoxaparin Sodium (Lovenox Inj) 80 mg Q12H SQ ; Start 07/01/16 at 21:00 Patient Medication Teaching (Coumadin Booklet) 1 ONCE ONCE .XX ; Start at 21:00; Stop 07/01/16 at 21:01; Status DC Nystatin (Mycostatin Powder) 1 applic Q12HR TOPICAL Last administered on t 21:01; Start 07/02/16 at 14:00 A/P Assessment and Plan A/P Bilateral Lower Extremity Weakness, Difficulty w/Ambulation: unclear etiology. Lumbar spine CT images reviewed, showed active changes present at L5-S1 generalized disc bulging and moderate encroachment at right L5 and S1 nerve root. C-spine CT shows no acute bony abnormality; degenerative changes at multiple levels. Patient refusing LP. Continue neuro checks. PT/OT consult, patient refuses to participate. neurology follow-up appreciated and recommended rehab. Subacute Pulmonary Embolism with Subtherapeutic INR: during previous hospitalization, patient refused TPA, she was treated with Heparin and Coumadin however patient now saying she never had a PE and is not on Coumadin. Restarted Coumadin with pharmacy consult, bridge with full strength Lovenox 80mg sq bid; however patient keeps refusing Lovenox/Coumadin. She does not believe she has a clot despite multiple attempts to explain this to her and show her imaging results. VQ scan done during this admission but nuclear medicine infiltrated IV and study was unable to be completed as patient refused another IV access. without anticoagulation, she is at significantly high risk of sudden and this was d/w the patient. Consulted palliative care to determine goals of treatment. Selective Mutism with Paranoid Schizophrenia: chronic, however suspect contributing to above weakness. Patient has been evaluated by psychiatry, appreciate recommendations. Noncompliance: patient currently refusing Lovenox and Coumadin as she does not believe she has blood clot. See discussion as above. Candidal intertrigo: under bilateral breasts. Start on Nystatin powder. DVT Prophylaxis: patient refusing coumadin/lovenox Discharge Planning difficult discharge. patient is homeless. transfer to [facility]. Teodoro Pritchett MD July 06, 2016 11:53
[2016-07-06 12:22] VITALS: BP 130/76; PULSE 68; RESP 20; TEMP 96.3; O2SAT 95
--- NOTE | 2016-07-06 14:56 | HHI.HCPN ---
Reason for visit a. To assist with evaluation and management of symptoms including: pain, weakness b. To assist medical decision maker(s) with: better understanding of current medical conditions; weighing benefits/burdens of medical treatment options; making medical treatment decisions. . (Sonal Garcia) Subjective/Interval History Ms. Masters is a 40 year old reportedly homeless, male who presented to [facility] ED on 07/01/2016 for evaluation of bilateral leg weakness 4 days. Patient reported the weakness had progressively worsened, denied any associated pain. Patient denied back pain. She was hospitalized from 06/08/16-06/24/16 for management of a saddle embolus. She refused TPA and was treated with Heparin and Coumadin. The patient's medical history is significant for paranoid schizophrenia and selective mutism. Patient presents sitting upright in bed, appears to be having a conversation with someone although no one is in the room. She denies any acute distress, pain, dyspnea. Afebrile, hemodynamically stable. History of saddle embolus, now with subacute pulmonary embolism and subtherapeutic INR. She is refusing Lovenox and Coumadin because she does not believe she has a blood clot. PT: 9.6 ; INR 0.9 Reporting ongoing weakness in bilateral lower extremities; patient refusing further diagnostic testing. Physical therapy and occupational therapy have both signed off as the patient adamantly declined services 3 attempts. Palliative Care DRY CLIPPER TENDER, Sophia Maguire, met with patient to discuss designation of health care surrogate. Patient states she has no one to designate and refused to discuss further. (Sonal Garcia) Advance Directives Advance Directive Specifics Documented care wishes: No documented care wishes are available. . (Sonal aGrcia) Objective Vital Signs Date Time Temp Pulse Resp B/P Pulse Ox O2 Delivery O2 Flow Rate FiO2 07/06/16 12:22 96.3 68 20 130/76 95 07/06/16 07:56 96.2 67 20 106/63 97 07/06/16 04:58 97.6 64 16 115/63 100 07/06/16 00:32 97.1 85 16 93/69 99 07/05/16 20:10 97.3 70 16 107/61 96 Intake & Output 07/06/16 07/06/16 07:00 19:00 Intake Total 720 ml 240 ml Balance 720 ml 240 ml Intake Oral 720 ml 240 ml # Voids 6 1 # Bowel Movements 1 1 . Physical Exam CONSTITUTIONAL/GENERAL: This is an adequately nourished patient, in no apparent distress. TUBES/LINES/DRAINS: PIV SKIN: No jaundice, rashes, or lesions. Ecchymoses on upper extremities. No wounds seen anteriorly. Skin temperature appropriate. Not diaphoretic. HEAD: Atraumatic. Normocephalic. EYES: Pupils equal and round and reactive. Extraocular motions intact. No scleral icterus. No injection or drainage. Fundi not examined. ENT: Hearing grossly normal. Nose without bleeding or purulent drainage. NECK: Trachea midline. Supple, nontender. No palpable thyroid enlargement or nodularity. CARDIOVASCULAR: Regular rate and rhythm without murmurs, gallops, or rubs. No JVD. Peripheral pulses symmetric. RESPIRATORY/CHEST: Symmetric, unlabored respirations. Clear to auscultation. Breath sounds equal bilaterally. No wheezes, rales, or rhonchi. GASTROINTESTINAL: Abdomen soft, non-tender, nondistended. GENITOURINARY: Without palpable bladder distension. MUSCULOSKELETAL: Extremities without clubbing, cyanosis, or edema. LYMPHATICS: No palpable cervical or supraclavicular adenopathy. NEUROLOGICAL: Awake and alert; BLE weakness. PSYCHIATRIC: Selective mutism; paranoid schizophrenia. No suicidal/homicidal ideation. . (Sonal Garcia) Diagnostic Tests Laboratory Laboratory Tests Test 07/05/16 07/06/16 13:12 07:06 Prothrombin Time 10.1 SEC 9.6 SEC (9.8-11.6) (9.8-11.6) Prothromb Time International 0.9 RATIO 0.9 RATIO Ratio . (Sonal Garcia) Result Diagram: 07/01/16 1650 07/02/16 1020 Assessment and Plan Disease Oriented Problem List: (1) Paranoid schizophrenia (2) Elective mutism (3) HNP (herniated nucleus pulposus), lumbar (4) Saddle embolus of pulmonary artery Symptom Scale: (1) Pain Comment: Patient denies pain on exam (2) Weakness Comment: Patient presented to [facility] 07/01/16 for evaluation of BLE weakness, difficulty ambulating; etiology unclear. CT lumbar spine showing degeneration at L5-S1, generalized disc bulging and moderate encroachment at right L5 and S1 nerve root; C-spine CT shows no acute bony abnormalities, degenerative changes at multiple levels. Patient refusing LP PT/OT have been consulted; patient refusing. Pertinent Non-Medical Issues Psychosocial: Per review of EMR, patient has a long history of paranoid schizophrenia with multiple hospitalizations. Patient is reportedly homeless. Her mother states she disappeared approximately 9 years ago; the mother's first contact when her with her daughter was last week. Spiritual: None moravian Legal: Per [place] statutes, and absence of written instructions healthcare proxy decision-making falls to the patient's mother Ethical issues impacting care: No known ethical issues impacting care at this time. . . Important Contacts Sonal Hernandez, mother: [phone] . Prognosis Patient is a 40-year-old female with a past medical history of paranoid schizophrenia and selective mutism. She was hospitalized from 06/08/16 through for management of a saddle embolus; patient refused TPA and was treated with heparin and Coumadin. Rehospitalized on 06/29/16 with complaints of bilateral lower extremity weakness, inability to ambulate. She is refusing further diagnostic testing, lumbar puncture. Now diagnosed with subacute pulmonary embolism and subtherapeutic INR, however patient is refusing Lovenox and Coumadin because she does not believe she has a blood clot. Per conversation with Dr. Pritchett, patient has been deemed capacitated to make her own medical treatment decisions. Patient is currently at significant risk of sudden secondary to her refusal of recommended medical regimen. . Code Status: Alternative Code (NO ACLS MEDICATION) Plan * ALTERNATE CODE * Decision-making: Per [place] statutes, in the absence of written advanced directives healthcare proxy decision making would fall to the patient's mother * Goals: Goals remain aggressive. * Patient is alert and oriented to person, place and time; she demonstrates a good understanding of medical terminology. Patient has a long history of schizophrenia and elective mutism. On exam she did not speak, but communicated in writing. She is currently refusing anticoagulation therapy for subacute pulmonary embolism with subtherapeutic INR despite being told that she is at high risk for sudden ; the patient's rationale is that she came to the hospital because of her BLE weakness, therefore it is not possible that she has a PE. She states she does not have a PE and has no history of this medical condition. * Palliative Care DRY CLIPPER TENDER, Sophia Maguire, met with patient to discuss designation of health care surrogate. Patient states she has no one to designate and refused to discuss further. * Symptom managementweakness: Patient presented to [facility] 07/01/16 for evaluation of BLE weakness, difficulty ambulating; etiology unclear. CT lumbar spine showing degeneration at L5-S1, generalized disc bulging and moderate encroachment at right L5 and S1 nerve root; C-spine CT shows no acute bony abnormalities, degenerative changes at multiple levels. Patient refusing LP. PT/ OT have been consulted; patient refusing. * Symptom managementdyspnea: Patient denies dyspnea on exam. Recently hospitalized from 06/08/16-06/24/16 with saddle PE, patient refused TPA, treated with Heparin and Coumadin. Patient diagnosed with subacute pulmonary embolism with subtherapeutic INR. Patient was started on Coumadin/Lovenox at admission, but she is refusing medications stating she came to the hospital because her legs are weak and she does not have a PE. Unable to complete VQ scan secondary to loss of IV access, subsequent refusal of procedure. * Palliative contact information was left with the patient at bedside * Palliative care will continue to follow this patient throughout her hospitalization to establish trust, assist with symptom management and clarification of medical treatment goals. . (Sonal Garcia) Attestation To help prompt me to consider important information that might be impacting today's encounter and assessment, information from prior notes written by myself or my colleagues may have been "brought forward" into today's note. My signature on this note, however, is an attestation that I personally performed the exam, history, and/or decision-making noted today, and, unless otherwise indicated, the interactions with patient, family, and staff as well as the review of records all occurred today. I also attest that the listed assessment and stated plan reflect my best clinical judgment today based on the combination of historical information, prior notes, and today's exam/ interactions. When time spent is documented, it refers only to time spent today by the signer, or if indicated, combined time spent today by collaborating physician/nurse practitioner. . (Sonal Garcia) Collaborating MD Comments . Chart reviewed. Case discussed with palliative care PLANT PACKER. Above PLANT PACKER note reviewed and I concur. . (Don Riddle MD) Sonal Garcia July 06, 2016 14:56 Don Riddle MD July 12, 2016 16:30
[2016-07-06] MEDS: WARFARIN SOD 6 MG TAB PO SCH (16:00)
[2016-07-06 20:00] VITALS: BP 102/55; PULSE 68; RESP 20; TEMP 97.8; O2SAT 99
[2016-07-07] VITALS: BP 121/72; PULSE 61; RESP 18; TEMP 96.7; O2SAT 98
[2016-07-07 08:26] LABS: INTERNATIONAL NORMALIZED RATIO 0.9 RATIO
[2016-07-07] MEDS: NYSTATIN 100,000 U/GM PWD 15 GM BTL TOPICAL SCH ×2 (09:00→21:00)
[2016-07-07] MEDS: SODIUM CHLORIDE 0.9% FLUSH 10 ML FLUSH IV FLUSH SCH ×2 (09:00→21:00)
[2016-07-07] MEDS: ENOXAPARIN SODIUM 80 MG/0.8 ML SYRINGE SQ SCH ×2 (09:00→21:00)
--- NOTE | 2016-07-07 09:00 | HHI.PR ---
Subjective Remarks Patient seen and examined sitting up in bed. She is mute but able to communicate through writing. Encouraged patient to work with PT but she states Dr. Nelson told her not to get out of bed and that he was doing more testing. Per Dr. Nelson last note Patient refused LP, patient denies this. Will clarify. She denies any pain, sob, fever or chills. Unable to lift lower extremities. Objective Vitals Vital Signs Date Time Temp Pulse Resp B/P Pulse Ox O2 Delivery O2 Flow Rate FiO2 07/07/16 00:00 96.7 61 18 121/72 98 07/06/16 20:00 97.8 68 20 102/55 99 07/06/16 12:22 96.3 68 20 130/76 95 I/O 07/06/16 07/06/16 07/06/16 07/07/16 07/07/16 07/07/16 07:00 15:00 23:00 07:00 15:00 23:00 Intake Total 720 ml 240 ml 360 ml 480 ml Balance 720 ml 240 ml 360 ml 480 ml Intake Oral 720 ml 240 ml 360 ml 480 ml # Voids 6 1 2 1 # Bowel Movements 1 1 0 0 Result Diagram: 07/01/16 1650 Imaging Last Impressions Lower Extremity Ultrasound 07/03/16 0000 Signed Impressions: Service Date/Time: Sunday, July 03, 2016 10:36 - CONCLUSION: Normal examination. Dax Nagel MD Lung Scan Nuclear Medicine 07/02/16 0000 Signed Impressions: Service Date/Time: Saturday, July 02, 2016 15:23 - CONCLUSION: 1. Ventilation scan only. 2. Patchy distribution of radiotracer. Without the corresponding perfusion study, findings are nonspecific but could represent central trapping/COPD. Pulmonary embolus cannot be excluded. Devante Dumont MD Chest X-Ray 07/02/16 0000 Signed Impressions: Service Date/Time: Saturday, July 02, 2016 15:25 - CONCLUSION: No acute disease. Skip Vo MD Cervical Spine CT 07/02/16 0000 Signed Impressions: Service Date/Time: Saturday, July 02, 2016 17:35 - CONCLUSION: 1. No acute bony abnormality seen. 2. Degenerative change at multiple levels as described above. Skip Vo MD Head CT 07/01/16 1602 Signed Impressions: Service Date/Time: Friday, July 01, 2016 17:57 - CONCLUSION: Negative and unchanged noncontrast head CT. Skip Tapia MD Lumbar Spine CT 07/01/16 1430 Signed Impressions: Service Date/Time: Friday, July 01, 2016 14:41 - CONCLUSION: Degenerative changes as described above worse at L4-5 and L5-S1 to the right. Delon Garcia MD FACR Objective Remarks GENERAL: This is a well-nourished, well-developed patient, in no apparent distress. Sitting up in bed. CARDIOVASCULAR: Regular rate and regular rhythm without murmurs, gallops, or rubs. RESPIRATORY: Clear to auscultation. Breath sounds equal bilaterally. No wheezes , rales, or rhonchi. GASTROINTESTINAL: Abdomen soft, non-tender, nondistended. Normal, active bowel sounds MUSCULOSKELETAL: Extremities without clubbing, cyanosis, or edema. NEURO: Alert & Oriented x4 to person, place, time, situation, able to communicate through writing, weakness of both lower extremities, unable to lift legs. Medications and IVs Current Medications Medications (Trade) Dose Ordered Sig/Nimo Route Start Time Stop Time Status Last Admin (NS Flush) 2 ml UNSCH PRN IVF 07/01/16 16:15 (NS Flush) 2 ml UNSCH PRN IV FLUSH 07/01/16 19:00 (NS Flush) 2 ml BID IV FLUSH 07/01/16 21:00 07/03/16 21:00 (Tylenol) 650 mg Q4H PRN PO 07/01/16 19:00 (Zofran Inj) 4 mg Q6H PRN IVP 07/01/16 19:00 (Milk Of Magnesia Liq) 30 ml Q12H PRN PO 07/01/16 19:00 (Restoril) 15 mg HS PRN PO 07/01/16 19:00 (Coumadin) 6 mg DAILY@16 PO 07/02/16 16:00 07/02/16 17:11 (Lovenox Inj) 80 mg Q12H SQ 07/01/16 21:00 (Mycostatin Powder) 1 applic Q12HR TOPICAL 07/02/16 14:00 07/03/16 21:01 A/P Assessment and Plan Bilateral Lower Extremity Weakness, Difficulty w/Ambulation: unclear etiology. Lumbar spine CT images reviewed, showed active changes present at L5-S1 generalized disc bulging and moderate encroachment at right L5 and S1 nerve root. C-spine CT shows no acute bony abnormality; degenerative changes at multiple levels. -Patient refusing LP. Continue neuro checks. 07/07: Patient says she did not refuse treatment and she wants to discuss with Dr. Nelson the treatment, she also said Dr. Nelson told her not to get out of bed. Discussed with Dr. Pritchett who will clarify with patient and discuss with Dr. Nelson about goals. -PT/OT consult, patient refuses to participate. -neurology follow-up appreciated and recommended rehab. Subacute Pulmonary Embolism with Subtherapeutic INR: during previous hospitalization, patient refused TPA, she was treated with Heparin and Coumadin however patient now saying she never had a PE and is not on Coumadin. Restarted Coumadin with pharmacy consult, bridge with full strength Lovenox 80mg sq bid; however patient keeps refusing Lovenox/Coumadin. She does not believe she has a clot despite multiple attempts to explain this to her and show her imaging results. VQ scan done during this admission but nuclear medicine infiltrated IV and study was unable to be completed as patient refused another IV access. Without anticoagulation, she is at significantly high risk of sudden and this was d/w the patient. Consulted palliative care to determine goals of treatment. Selective Mutism with Paranoid Schizophrenia: chronic, however suspect contributing to above weakness. Patient has been evaluated by psychiatry, appreciate recommendations. Re consult placed since patient is refusing therapy that can be harmful to her self. Noncompliance: patient currently refusing Lovenox and Coumadin as she does not believe she has blood clot. See discussion as above. Candidal intertrigo: under bilateral breasts. Start on Nystatin powder. DVT Prophylaxis: patient refusing Coumadin/Lovenox Discharge Planning Pending arrangements with a snf, patient is homeless and not very corporative with case management Venessa Bernard July 07, 2016 09:00
--- NOTE | 2016-07-07 15:12 | HHI.PR ---
Review/Management Diagnosis 1. Paraplegia/ likely etiology is functional. 2. Elective mutism. 3. Paranoid schizophrenia. Plan - I received a call from [employer] that patient changed her mind and wants to pursue further testing - I spoke with PA, and my recommendations is to do CTA lumbar to rule out anterior spinal artery ischemia/infarction, given recent h/o saddle embolus; of note, patient refused and still refusing to be on anticoagulation - No LP is warranted at this time - I had explained on a previous hospital visit to the patient the finding of the cervical and lumbar spine imaging and the possible need for further testing , she denied, by writing, any further tests or medications - Patient needs placement and rehab - Please call for questions. Diagnosis/Plan: Subjective Subjective Comments I received a call from [employer] that patient changed her mind and wants to pursue further testing I spoke with PA, and my recommendations is to do CTA lumbar to rule out anterior spinal artery ischemia/infarction, given recent h/o saddle embolus; of note, patient refused and still refusing to be on anticoagulation No LP is warranted at this time Active Medications Current Medications Medications (Trade) Dose Ordered Sig/Nimo Route Start Time Stop Time Status Last Admin (NS Flush) 2 ml UNSCH PRN IVF 07/01/16 16:15 (NS Flush) 2 ml UNSCH PRN IV FLUSH 07/01/16 19:00 (NS Flush) 2 ml BID IV FLUSH 07/01/16 21:00 07/03/16 21:00 (Tylenol) 650 mg Q4H PRN PO 07/01/16 19:00 (Zofran Inj) 4 mg Q6H PRN IVP 07/01/16 19:00 (Milk Of Magnesia Liq) 30 ml Q12H PRN PO 07/01/16 19:00 (Restoril) 15 mg HS PRN PO 07/01/16 19:00 (Coumadin) 6 mg DAILY@16 PO 07/02/16 16:00 07/02/16 17:11 (Lovenox Inj) 80 mg Q12H SQ 07/01/16 21:00 (Mycostatin Powder) 1 applic Q12HR TOPICAL 07/02/16 14:00 07/03/16 21:01 Allergies Allergies Coded Allergies No Known Allergies (Unverified07/01/16) Exam I&O / VS 07/06/16 07/06/16 07/07/16 15:00 23:00 07:00 Intake Total 240 ml 360 ml 480 ml Balance 240 ml 360 ml 480 ml Intake Oral 240 ml 360 ml 480 ml # Voids 1 2 1 # Bowel Movements 1 0 0 Vital Signs Date Time Temp Pulse Resp B/P Pulse Ox O2 Delivery O2 Flow Rate FiO2 07/07/16 00:00 96.7 61 18 121/72 98 07/06/16 20:00 97.8 68 20 102/55 99 Exam Comments General: Awake, overweight, answers questions through writing on paper. HEENT: Atraumatic, normocephalic. intact hearing. Neck: Trachea in the midline, no neck tenderness. Cardiovascular: Regular rate and rhythm. Respiratory: Clear to auscultation. No wheezes. Abdomen: Soft. Musculoskeletal: No clubbing, no cyanosis. Unable to move bilateral lower extremities Neurological: Awake, alert, mute. Communicates through writing. intact external ocular motility. Pupils are to 3 mm bilateral and symmetrical. No facial asymmetry. Upper extremities: left upper extremity 5/5, right upper extremity, finger flexion, and finger extension 5/5. She subconsciously moves the right upper extremity, however, during the examination, elbow flexion was 2, elbow extension 1, 0 shoulder abduction, bilateral lower extremities, grade 0, sensation is intact bilateral and symmetrical throughout. Reflexes bilateral upper extremities 2+, bilateral lower extremities 2+, plantars bilaterally downgoing. Unable to perform [id number]. No sensory level. Objective Micro and Labs Laboratory Tests Test 07/07/16 07:50 Prothrombin Time 10.0 Prothromb Time International 0.9 Ratio Taras Nelson MD July 07, 2016 15:12
[2016-07-07] MEDS: WARFARIN SOD 6 MG TAB PO SCH (16:00)
--- NOTE | 2016-07-07 16:35 | HHI.PYPN ---
Subjective Remarks Patient was seen today for psychiatric reevaluation, she was found in her bed, calm and cooperative, communicative just by writing. I seen the patient before and she has chosen not to talk, however she has been witnessed talking with selective people. Today she reports good mood, she denies depressive symptoms, she denies suicidal ideation, she denies homicidal ideation, she denies visual and auditory hallucinations. Patient says that she feels safe in the hospital, denies paranoia, she says that she is willing to follow medical recommendations and she is not requesting to sign AMA at this moment. She does not seem to be internally preoccupied or acutely psychotic. She is very malodorous and disheveled, she usually were dark sunglasses at baseline. The patient is fully oriented 3, there is no attention deficit, no gross cognitive impairment, even though cognitive tests is limited by the lack of cooperation. Review of Systems Other No somatic complaints Objective Alert: Yes [place]: Person, Place, Date, Situation Mood: Calm Affect: Appropriate Memory Intact: Immediate, Recent, Remote Hallucinations: Other (she denies) Delusions: No Delusion Type: Other (none elicited) Suicidal: Ideation (she denies) Homicidal: Ideation (she denies) Insight/Judgment Fair Labs Test 07/07/16 07:50 Prothrombin Time 10.0 SEC Prothromb Time International 0.9 RATIO Ratio Vitals/IOs Vital Signs Date Time Temp Pulse Resp B/P Pulse Ox O2 Delivery O2 Flow Rate FiO2 07/07/16 00:00 96.7 61 18 121/72 98 Intake and Output 07/06/16 07/06/16 07/07/16 08:00 16:00 00:00 Intake Total 720 ml 240 ml 360 ml Balance 720 ml 240 ml 360 ml Assessment & Plan Problem List: (1) Paranoid schizophrenia Assessment & Plan: At the moment of this evaluation patient does not present any acute neuropsychiatric symptom that requires an immediate psychiatric intervention or hospitalization. She denies depression, anxiety, carlos or psychosis. She denies visual and auditory hallucinations, she denies suicidal and homicidal ideation. No aggressive behavior and agitation are reported. Patient seems to act very bizarrely, is very disheveled, malodorous, selectively mute, oddly related at baseline. Patient is fully oriented 3, there is no evidence of cognitive impairment at this moment. Patient seems to understand the reason of her hospitalization and consequences of leaving AMA. There is no psychiatric contraindication for the patient to continue her medical treatment, and she has decision-making capacity to leave AMA, even though the patient reportedly states that she will stay in the hospital. ICD Code: F20.0 Assessment & Plan Estimated LOS: days Justification for Cont. Inpt. Patient does not meet criteria for psychiatric admission. Vijay Guthrie MD July 07, 2016 16:34
[2016-07-07 20:00] VITALS: BP 121/75; PULSE 72; RESP 20; TEMP 97.5; O2SAT 98
[2016-07-08 08:00] VITALS: BP 115/77; PULSE 66; RESP 18; TEMP 97.3; O2SAT 98
[2016-07-08] MEDS: NYSTATIN 100,000 U/GM PWD 15 GM BTL TOPICAL SCH ×2 (09:00→21:00)
[2016-07-08] MEDS: ENOXAPARIN SODIUM 80 MG/0.8 ML SYRINGE SQ SCH ×2 (09:00→21:00)
[2016-07-08] MEDS: SODIUM CHLORIDE 0.9% FLUSH 10 ML FLUSH IV FLUSH SCH ×2 (09:00→21:00)
--- NOTE | 2016-07-08 14:14 | HHI.PR ---
Subjective Remarks Patient seen and examined today for subjective bilateral lower extremity weakness. Apparently the patient was readmitted the hospital on 07/01/16 because of subjective bilateral lower extremity weakness. Patient had initial radiological exam performed upon admission. Only finding at that time showed degenerative changes which are worse at L4-L5 and L5-S1 on the right. Patient was recommended for LP for further evaluation, however patient refused procedure. Evaluated occupational therapy and physical therapy notes. Patient is unwilling and refuses to participate and therapeutic evaluation. Patient does have recent hospitalization with rather large saddle pulmonary emboli requiring oxygen. Patient was weaned off oxygen that time and was continued on anticoagulation to include Coumadin upon discharge. The patient did not continue Coumadin at that time. And she is refusing to take medications at this time. She is refusing Lovenox and Coumadin. She indicates to me in writing that she does not have a blood clot. She was told that it is no longer there. Recent scan was performed which indicated some central trapping pulmonary emboli cannot be excluded. Bilateral lower extremity ultrasound was performed which did not indicate any DVT. Case was discussed with neurologist who indicated that he does not have an etiology this time and does not understand why she has a bilateral lower extremity weakness. He indicates that at this time LP is not warranted. He would recommend angiography of her lumbar spine. Case was discussed with radiologist who indicates that they do not perform any angiography of the lower spine. Recommended MRI of the thoracic and lumbar spine for further evaluation. Discussed the case with psychiatry was reconsulted because the patient is refusing treatment that can cause harm and to herself if she continues to refuse treatment to include anticoagulation for pulmonary emboli. Psychiatrist indicated the patient has full mental capacity and has the right to accept or refuse any treatment at this time. At the present time patient is still refusing all treatment, therapy , evaluations. Unable to take care of the patient effectively due to her refusal of treatment. Objective Vitals Vital Signs Date Time Temp Pulse Resp B/P Pulse Ox O2 Delivery O2 Flow Rate FiO2 07/08/16 08:00 97.3 66 18 115/77 98 07/07/16 20:00 97.5 72 20 121/75 98 I/O 07/07/16 07/07/16 07/07/16 07/08/16 07/08/16 07/08/16 07:00 15:00 23:00 07:00 15:00 23:00 Intake Total 480 ml 480 ml 240 ml 600 ml Balance 480 ml 480 ml 240 ml 600 ml Intake Oral 480 ml 480 ml 240 ml 600 ml # Voids 1 4 2 3 # Bowel Movements 0 3 2 Result Diagram: 07/01/16 1650 Imaging Last Impressions Lower Extremity Ultrasound 07/03/16 0000 Signed Impressions: Service Date/Time: Sunday, July 03, 2016 10:36 - CONCLUSION: Normal examination. Dax Nagel MD Lung Scan Nuclear Medicine 07/02/16 0000 Signed Impressions: Service Date/Time: Saturday, July 02, 2016 15:23 - CONCLUSION: 1. Ventilation scan only. 2. Patchy distribution of radiotracer. Without the corresponding perfusion study, findings are nonspecific but could represent central trapping/COPD. Pulmonary embolus cannot be excluded. Devante Dumont MD Chest X-Ray 07/02/16 0000 Signed Impressions: Service Date/Time: Saturday, July 02, 2016 15:25 - CONCLUSION: No acute disease. Skip Vo MD Cervical Spine CT 07/02/16 0000 Signed Impressions: Service Date/Time: Saturday, July 02, 2016 17:35 - CONCLUSION: 1. No acute bony abnormality seen. 2. Degenerative change at multiple levels as described above. Skip Vo MD Head CT 07/01/16 1602 Signed Impressions: Service Date/Time: Friday, July 01, 2016 17:57 - CONCLUSION: Negative and unchanged noncontrast head CT. Skip Tapia MD Lumbar Spine CT 07/01/16 1430 Signed Impressions: Service Date/Time: Friday, July 01, 2016 14:41 - CONCLUSION: Degenerative changes as described above worse at L4-5 and L5-S1 to the right. Delon Garcia MD FACR Objective Remarks GENERAL: Well-developed, well-nourished, in no acute distress. alert and orientated HEENT: Head is normocephalic without any lesions or masses noted. Facial features are symmetric. Eyes: Unable to examine eyes because she refuses to take her sun glasses off NECK: Supple without any masses. Trachea midline no deviation. No JVD, CARDIAC: Regular rhythm, regular rate. S1/S2 are heard. No murmurs gallops or rubs. LUNGS: Clear to auscultation bilaterally. No wheeze, rhonchi or rales. No use of accessory muscles on inspiration or expiration. ABDOMEN: Soft, nontender. Nondistended. Bowel sounds heard in all 4 quadrants. No organomegaly or masses. Negative rebound, negative guarding EXTREMITIES: No edema, pulses are equal bilaterally. No cyanosis or clubbing NEUROLOGY: Mood and affect appear appropriate. Cranial nerves II through XII grossly intact. Moving all extremities, patient is an elective mute Urinary Catheter: No Vascular Central Line Catheter: No A/P Assessment and Plan Bilateral Lower Extremity Weakness, Difficulty w/Ambulation: Subjective. Cervical CT, lumbar CT scans were performed which did not indicate any acute abnormality which would indicate bilateral lower extremity weakness. Patient is refusing PT/OT evaluations Patient refused lumbar puncture for further evaluation. Neurology Dr. Nelson, has evaluated the patient does not have any etiology of the patient's lower extremity weakness. He is recommending angiography of the lumbar spine because of her hypercoagulability state from the recent saddle emboli, however radiologist does not perform any angiography of the spine. They recommended MRI study of the thoracic and lumbar spine. MRI of the thoracic and lumbar spine: Pending Subacute Pulmonary Embolism 06/08/16 with Subtherapeutic INR: during previous hospitalization, patient refused TPA, V/Q scan was performed which could not rule out the possibility of emboli Patient refusing Lovenox/Coumadin at this time Patient indicates that she was told that she does not have any blood clots It was discussed with the patient extensively that without anticoagulation she is at increased risk of embolic events to include worsening pulmonary emboli, stroke, . Palliative care was consulted for recommendations. Selective Mutism with Paranoid Schizophrenia: chronic, Patient has been evaluated by psychiatry, Psychiatry reconsulted due to the patient refusing medical care. As indicated by psychiatry the patient has full capacity to make her own medical decisions she is alert and orientated. He indicated that the patient has all rights to refuse any medical care Medical Noncompliance: Patient is refusing all medical care this time to include life-saving medications, physical therapy, occupational therapy, refusing to ambulate. Patient is not allowing medical staff to perform their duties and protect her from harm and prevent her from having significant life-threatening medical complications Candidal intertrigo: under bilateral breasts. Patient refusing Nystatin powder. DVT Prophylaxis: Patient refusing Coumadin/Lovenox Discharge Planning Unable to turn discharge planning this time as patient is refusing all medical treatment, management, therapies. Steven Mccray July 08, 2016 14:14
[2016-07-08] MEDS: WARFARIN SOD 6 MG TAB PO SCH (16:00)
[2016-07-08 20:00] VITALS: BP 116/70; PULSE 75; RESP 21; TEMP 97.5; O2SAT 97
[2016-07-09 08:00] VITALS: BP 148/84; PULSE 62; RESP 18; TEMP 97.6; O2SAT 97
[2016-07-09 08:07] LABS: INTERNATIONAL NORMALIZED RATIO 0.9 RATIO; PROTHROMBIN TIME - PATIENT 10.2 SEC (9.8-11.6)
[2016-07-09] MEDS: ENOXAPARIN SODIUM 80 MG/0.8 ML SYRINGE SQ SCH ×2 (08:28→21:00)
[2016-07-09] MEDS: SODIUM CHLORIDE 0.9% FLUSH 10 ML FLUSH IV FLUSH SCH ×2 (08:28→21:00)
[2016-07-09] MEDS: NYSTATIN 100,000 U/GM PWD 15 GM BTL TOPICAL SCH ×2 (08:29→21:00)
--- NOTE | 2016-07-09 10:32 | HHI.PR ---
Subjective Remarks Patient seen and examined today for follow-up on subjective bilateral lower extremity weakness. Patient continues to be noncompliant and refusing/ deferring medical care and management. Upon entering the room she did refuse her medications this morning for anticoagulation. She proceeded to indicate the nurse needs to leave the room. Then writes that the nurse is part of her problem. I then spent extensive amount of time explaining to the patient her situation at the hospital. I notified her of my conversation with Dr. Nelson, that he indicated there is nothing else from neurological standpoint at this time that he can offer the patient said she is refusing treatment and evaluation. I notified the patient that I spoke with Dr. Riddle with palliative care in that we will likely need to get case management and legals involved in her management and care. I notified her that I did speak with the psychiatrist who indicated that she does have the right to refuse care and management. The patient continued to interrupt me during the entire conversation to write on the paper her demands to be seen by physicians who have signed off, demands that she will have to have MRI done at the [facility], patient states that she has a right to see whenever DrBryce she wants and have whatever testing she wants. I again informed her of the present treatment plan and will need to await case management and legals to make further recommendations and decisions about her care and management. Objective Vitals Vital Signs Date Time Temp Pulse Resp B/P Pulse Ox O2 Delivery O2 Flow Rate FiO2 07/09/16 08:00 97.6 62 18 148/84 97 07/08/16 20:00 97.5 75 21 116/70 97 I/O 07/08/16 07/08/16 07/08/16 07/09/16 07/09/16 07/09/16 07:00 15:00 23:00 07:00 15:00 23:00 Intake Total 240 ml 600 ml 240 ml 480 ml Balance 240 ml 600 ml 240 ml 480 ml Intake Oral 240 ml 600 ml 240 ml 480 ml # Voids 2 3 2 2 # Bowel Movements 2 1 1 Objective Remarks GENERAL: Well-developed, well-nourished, in no acute distress. alert and orientated HEENT: Head is normocephalic without any lesions or masses noted. Facial features are symmetric. Eyes: Unable to examine eyes because she refuses to take her sun glasses off NECK: Supple without any masses. Trachea midline no deviation. No JVD, EXTREMITIES: No edema, pulses are equal bilaterally. No cyanosis or clubbing NEUROLOGY: Mood appears anxious and affect mildly heightened and agitated. Moving all extremities, patient is an elective mute Urinary Catheter: No Vascular Central Line Catheter: No A/P Assessment and Plan Bilateral Lower Extremity Weakness, Difficulty w/Ambulation: Subjective. Cervical CT, lumbar CT scans were performed which did not indicate any acute abnormality which would indicate bilateral lower extremity weakness. Patient is refusing PT/OT evaluations Patient refused lumbar puncture for further evaluation. Patient will not undergo MRI study Neurology Dr. Nelson, has evaluated the patient does not have any etiology of the patient's lower extremity weakness. He is recommending angiography of the lumbar spine because of her hypercoagulability state from the recent saddle emboli, however radiologist does not perform any angiography of the spine. Radiologist recommended MRI study of the thoracic and lumbar spine. However, patient was not able to perform MRI study yesterday and refuses to have it done. Neurology indicated that there is nothing else they can offer from a neurological standpoint to contribute to the patient's possible etiologies. He indicated that he will sign off and defer continue management to medical team Subacute Pulmonary Embolism 06/08/16 with Subtherapeutic INR: during previous hospitalization, patient refused TPA, V/Q scan was performed which could not rule out the possibility of emboli Patient refusing Lovenox/Coumadin at this time Patient indicates that she was told that she does not have any blood clots It was discussed with the patient extensively that without anticoagulation she is at increased risk of embolic events to include worsening pulmonary emboli, stroke, . Palliative care was consulted for recommendations. Selective Mutism with Paranoid Schizophrenia: chronic, Patient has been evaluated by psychiatry, Psychiatry reconsulted due to the patient refusing medical care. As indicated by psychiatry the patient has full capacity to make her own medical decisions she is alert and orientated. He indicated that the patient has all rights to refuse any medical care Medical Noncompliance: Patient is refusing all medical care this time to include life-saving medications, physical therapy, occupational therapy, refusing to ambulate. Patient is not allowing medical staff to perform their duties and protect her from harm and prevent her from having significant life-threatening medical complications Discussed with palliative care physician Dr. Riddle, he states that he is familiar with this patient. He indicates that patient may need to have further evaluation for competency since the patient is clearly indicating that she does not have a condition or conditions that have been objectively identified and patient has been counseled extensively on. He indicates that we'll need to get case management and legals involved for appropriate management of this patient. Candidal intertrigo: under bilateral breasts. Patient refusing Nystatin powder. DVT Prophylaxis: Patient refusing Coumadin/Lovenox Discharge Planning Unable to turn discharge planning this time as patient is refusing all medical treatment, management, therapies. Steven Mccray July 09, 2016 10:32
[2016-07-09] MEDS: WARFARIN SOD 6 MG TAB PO SCH (16:00)
[2016-07-09 20:00] VITALS: BP 113/67; PULSE 67; RESP 20; TEMP 97.7; O2SAT 99
[2016-07-10] MEDS: SODIUM CHLORIDE 0.9% FLUSH 10 ML FLUSH IV FLUSH SCH ×2 (08:32→23:13)
[2016-07-10] MEDS: NYSTATIN 100,000 U/GM PWD 15 GM BTL TOPICAL SCH ×2 (08:33→23:12)
[2016-07-10] MEDS: ENOXAPARIN SODIUM 80 MG/0.8 ML SYRINGE SQ SCH ×2 (08:33→23:12)
[2016-07-10 08:42] LABS: INTERNATIONAL NORMALIZED RATIO 0.9 RATIO; PROTHROMBIN TIME - PATIENT 10.2 SEC (9.8-11.6)
[2016-07-10 08:52] VITALS: BP 116/70; PULSE 63; RESP 18; TEMP 98.2; O2SAT 100
--- NOTE | 2016-07-10 13:36 | HHI.PR ---
Subjective Remarks Patient seen today in follow-up for bilateral lower external weakness. Patient sleeping upon entering the room. Nursing staff to not indicate any new complaints. They indicate patient is still refusing medication and treatment Objective Vitals Vital Signs Date Time Temp Pulse Resp B/P Pulse Ox O2 Delivery O2 Flow Rate FiO2 07/10/16 08:52 98.2 63 18 116/70 100 07/09/16 20:00 97.7 67 20 113/67 99 I/O 07/09/16 07/09/16 07/09/16 07/10/16 07/10/16 07/10/16 06:59 14:59 22:59 06:59 14:59 22:59 Intake Total 480 ml 720 ml Balance 480 ml 720 ml Intake Oral 480 ml 480 ml Oral Supplement 240 ml # Voids 2 1 # Bowel Movements 1 1 1 Objective Remarks GENERAL: Well-developed, well-nourished, in no acute distress. Patient was sleeping Urinary Catheter: No Vascular Central Line Catheter: No A/P Assessment and Plan Bilateral Lower Extremity Weakness, Difficulty w/Ambulation: Subjective. Cervical CT, lumbar CT scans were performed which did not indicate any acute abnormality which would indicate bilateral lower extremity weakness. Patient is refusing PT/OT evaluations Patient refused lumbar puncture for further evaluation. Patient will not undergo MRI study Neurology Dr. Nelson, has evaluated the patient does not have any etiology of the patient's lower extremity weakness. He is recommending angiography of the lumbar spine because of her hypercoagulability state from the recent saddle emboli, however radiologist does not perform any angiography of the spine. Radiologist recommended MRI study of the thoracic and lumbar spine. However, patient was not able to perform MRI study yesterday and refuses to have it done. Neurology indicated that there is nothing else they can offer from a neurological standpoint to contribute to the patient's possible etiologies. He indicated that he will sign off and defer continue management to medical team Subacute Pulmonary Embolism 06/08/16 with Subtherapeutic INR: during previous hospitalization, patient refused TPA, V/Q scan was performed which could not rule out the possibility of emboli Patient refusing Lovenox/Coumadin at this time Patient indicates that she was told that she does not have any blood clots It was discussed with the patient extensively that without anticoagulation she is at increased risk of embolic events to include worsening pulmonary emboli, stroke, . Palliative care was consulted for recommendations. Selective Mutism with Paranoid Schizophrenia: chronic, Patient has been evaluated by psychiatry, Psychiatry reconsulted due to the patient refusing medical care. As indicated by psychiatry the patient has full capacity to make her own medical decisions she is alert and orientated. He indicated that the patient has all rights to refuse any medical care Medical Noncompliance: Patient is refusing all medical care this time to include life-saving medications, physical therapy, occupational therapy, refusing to ambulate. Patient is not allowing medical staff to perform their duties and protect her from harm and prevent her from having significant life-threatening medical complications Discussed with palliative care physician Dr. Riddle, he states that he is familiar with this patient. He indicates that patient may need to have further evaluation for competency since the patient is clearly indicating that she does not have a condition or conditions that have been objectively identified and patient has been counseled extensively on. He indicates that we'll need to get case management and legals involved for appropriate management of this patient. Candidal intertrigo: under bilateral breasts. Patient refusing Nystatin powder. DVT Prophylaxis: Patient refusing Coumadin/Lovenox Discharge Planning Unable to determine discharge planning this time as patient is refusing all medical treatment, management, therapies. Case management consulted for possible administration evaluation with ethics, legal Steven Mccray July 10, 2016 13:36
[2016-07-10] MEDS: WARFARIN SOD 6 MG TAB PO SCH (16:00)
[2016-07-10 20:00] VITALS: BP 113/67; PULSE 70; RESP 20; TEMP 98.6; O2SAT 97
[2016-07-11 08:00] VITALS: BP 118/73; PULSE 83; RESP 18; TEMP 98.1; O2SAT 98
[2016-07-11 08:54] LABS: INTERNATIONAL NORMALIZED RATIO 0.9 RATIO; PROTHROMBIN TIME - PATIENT 9.6 SEC (9.8-11.6)
[2016-07-11] MEDS: SODIUM CHLORIDE 0.9% FLUSH 10 ML FLUSH IV FLUSH SCH ×2 (09:00→20:54)
[2016-07-11] MEDS: ENOXAPARIN SODIUM 80 MG/0.8 ML SYRINGE SQ SCH ×2 (09:00→20:54)
[2016-07-11] MEDS: NYSTATIN 100,000 U/GM PWD 15 GM BTL TOPICAL SCH ×2 (09:00→20:55)
--- NOTE | 2016-07-11 11:14 | HHI.PR ---
Subjective Remarks Patient was seen and examined today in follow-up for lower extremity weakness. Patient denies any new complaints today. Patient's still insistent that she does not have any blood clots that require treatment. I did print off a copy of the patient's most recent CTA which does indicate the blood clot for her review Objective Vitals Vital Signs Date Time Temp Pulse Resp B/P Pulse Ox O2 Delivery O2 Flow Rate FiO2 07/11/16 08:00 98.1 83 18 118/73 98 07/10/16 20:00 98.6 70 20 113/67 97 I/O 07/10/16 07/10/16 07/10/16 07/11/16 07/11/16 07/11/16 07:00 15:00 23:00 07:00 15:00 23:00 Intake Total 1480 ml 350 ml 400 ml Balance 1480 ml 350 ml 400 ml Intake Oral 1480 ml 350 ml 400 ml # Voids 5 2 # Bowel Movements 0 Objective Remarks GENERAL: Well-developed, well-nourished, in no acute distress. HEENT: Head is normocephalic without any lesions or masses noted. Facial features are symmetric. NECK: Supple without any masses. Trachea midline no deviation. No JVD, CARDIAC: Regular rhythm, regular rate. S1/S2 are heard. No murmurs gallops or rubs. LUNGS: Clear to auscultation bilaterally. No wheeze, rhonchi or rales. No use of accessory muscles on inspiration or expiration. ABDOMEN: Soft, nontender. Nondistended. Bowel sounds heard in all 4 quadrants. No organomegaly or masses. Negative rebound, negative guarding EXTREMITIES: No edema, pulses are equal bilaterally. No cyanosis or clubbing NEUROLOGY: Mood and affect appear appropriate. Cranial nerves II through XII grossly intact. Moving all extremities, patient is an elective mute Urinary Catheter: No Vascular Central Line Catheter: No A/P Assessment and Plan Bilateral Lower Extremity Weakness, Difficulty w/Ambulation: Subjective. Cervical CT, lumbar CT scans were performed which did not indicate any acute abnormality which would indicate bilateral lower extremity weakness. Patient is refusing PT/OT evaluations Patient refused lumbar puncture for further evaluation. Patient will not undergo MRI study Neurology Dr. Nelson, has evaluated the patient does not have any etiology of the patient's lower extremity weakness. He is recommending angiography of the lumbar spine because of her hypercoagulability state from the recent saddle emboli, however radiologist does not perform any angiography of the spine. Radiologist recommended MRI study of the thoracic and lumbar spine. However, patient was not able to perform MRI study yesterday and refuses to have it done. Neurology indicated that there is nothing else they can offer from a neurological standpoint to contribute to the patient's possible etiologies. He indicated that he will sign off and defer continue management to medical team Subacute Pulmonary Embolism 06/08/16 with Subtherapeutic INR: during previous hospitalization, patient refused TPA, V/Q scan was performed which could not rule out the possibility of emboli Patient refusing Lovenox/Coumadin at this time Patient indicates that she was told that she does not have any blood clots Patient was given copy of recent CTA for confirmation of her blood clot It was discussed with the patient extensively that without anticoagulation she is at increased risk of embolic events to include worsening pulmonary emboli, stroke, . Palliative care was consulted for recommendations. Selective Mutism with Paranoid Schizophrenia: chronic, Patient has been evaluated by psychiatry, Psychiatry reconsulted due to the patient refusing medical care. As indicated by psychiatry the patient has full capacity to make her own medical decisions she is alert and orientated. He indicated that the patient has all rights to refuse any medical care Medical Noncompliance: Patient is refusing all medical care this time to include life-saving medications, physical therapy, occupational therapy, refusing to ambulate. Patient is not allowing medical staff to perform their duties and protect her from harm and prevent her from having significant life-threatening medical complications Discussed with palliative care physician Dr. Riddle, he states that he is familiar with this patient. He indicates that patient may need to have further evaluation for competency since the patient is clearly indicating that she does not have a condition or conditions that have been objectively identified and patient has been counseled extensively on. He indicates that we'll need to get case management and legals involved for appropriate management of this patient. Candidal intertrigo: under bilateral breasts. Patient refusing Nystatin powder. DVT Prophylaxis: Patient refusing Coumadin/Lovenox Discharge Planning Unable to determine discharge planning this time as patient is refusing all medical treatment, management, therapies. Case management consulted for possible administration evaluation with ethics, legal Steven Mccray July 11, 2016 11:14
[2016-07-11] MEDS: WARFARIN SOD 6 MG TAB PO SCH (15:32)
--- NOTE | 2016-07-11 16:29 | HHI.HCPN ---
Palliative care reconsulted 07/08/16. Palliative care already following patient. Patient essentially remained uncooperative during palliative care visits. See Puja Mcnairhazel ANGELA visit 07/06/16. Patient refused to discuss living will, refused to complete health care surrogate stating she had no one to appoint as medical decision maker. Appears mother would be medical proxy per [place] Statutes if patient unable to make her own medical decisions. Psychiatry following. Dr. Riddle, adjunct faculty for medical terminology palliative care spoke with Trung Mccray, deemed unnecessary palliative care to see patient at this time. Recommend further recommendations from psychiatry and case management follow-up to discharge related issues. Sophia Maguire, FIELD SALES SPECIALIST July 11, 2016 16:29
[2016-07-11 20:00] VITALS: BP 115/68; PULSE 74; RESP 22; TEMP 98; O2SAT 98
[2016-07-12 08:00] VITALS: BP 113/72; PULSE 58; RESP 18; TEMP 97.7; O2SAT 96
[2016-07-12] MEDS: SODIUM CHLORIDE 0.9% FLUSH 10 ML FLUSH IV FLUSH SCH ×2 (08:19→21:00)
[2016-07-12] MEDS: NYSTATIN 100,000 U/GM PWD 15 GM BTL TOPICAL SCH ×2 (08:19→21:00)
[2016-07-12] MEDS: ENOXAPARIN SODIUM 80 MG/0.8 ML SYRINGE SQ SCH ×2 (08:19→21:00)
--- NOTE | 2016-07-12 12:42 | HHI.PR ---
Subjective Remarks Follow-up for lower extremity weakness. This patient has been noncompliant with anticoagulation for her saddle PE. Objective Vitals Vital Signs Date Time Temp Pulse Resp B/P Pulse Ox O2 Delivery O2 Flow Rate FiO2 07/12/16 08:00 97.7 58 18 113/72 96 07/11/16 20:00 98.0 74 22 115/68 98 I/O 07/11/16 07/11/16 07/11/16 07/12/16 07/12/16 07/12/16 07:00 15:00 23:00 07:00 15:00 23:00 Intake Total 350 ml 800 ml 1120 ml 480 ml 500 ml Output Total 1 ml 700 ml Balance 350 ml 799 ml 420 ml 480 ml 500 ml Intake Oral 350 ml 800 ml 1120 ml 480 ml 500 ml Output Urine Total 700 ml Stool Total 1 ml # Voids 2 3 3 2 # Bowel Movements 3 2 Objective Remarks GENERAL: Well-nourished well-developed patient in apparent distress sleeping sitting up when I enter the room wearing sunglasses. SKIN: Warm and dry. HEAD: Atraumatic. Normocephalic. CARDIOVASCULAR: Regular rate and rhythm. RESPIRATORY: No accessory muscle use. Clear to auscultation. Breath sounds equal bilaterally. GASTROINTESTINAL: Abdomen soft, non-tender, nondistended. MUSCULOSKELETAL: Trace lower extremity edema bilaterally. NEUROLOGICAL: Awake and alert. Does not speak. Motor grossly within normal limits. Urinary Catheter: No Vascular Central Line Catheter: No A/P Assessment and Plan Bilateral Lower Extremity Weakness, Difficulty w/Ambulation: Subjective. Cervical CT, lumbar CT scans were performed which did not indicate any acute abnormality which would indicate bilateral lower extremity weakness. Patient is refusing PT/OT evaluations Patient refused lumbar puncture for further evaluation. Patient will not undergo MRI study Neurology Dr. Nelson, has evaluated the patient does not have any etiology of the patient's lower extremity weakness. He is recommending angiography of the lumbar spine because of her hypercoagulability state from the recent saddle emboli, however radiologist does not perform any angiography of the spine. Radiologist recommended MRI study of the thoracic and lumbar spine. However, patient was not able to perform MRI study and refuses to have it done. Neurology indicated that there is nothing else they can offer from a neurological standpoint to contribute to the patient's possible etiologies. He indicated that he will sign off and defer continued management to medical team Subacute Pulmonary Embolism 06/08/16 with Subtherapeutic INR: During previous hospitalization, patient refused TPA. V/Q scan was performed which could not rule out the possibility of emboli Patient refusing Lovenox/Coumadin at this time Patient indicates that she was told that she does not have any blood clots Patient was given copy of recent CTA for confirmation of her blood clot Colleague discussed with the patient extensively that without anticoagulation she is at increased risk of embolic events to include worsening pulmonary emboli , stroke, . Palliative care was consulted for recommendations. Selective Mutism with Paranoid Schizophrenia: chronic, Patient has been evaluated by psychiatry, Psychiatry reconsulted due to the patient refusing medical care. As indicated by psychiatry the patient has full capacity to make her own medical decisions she is alert and oriented. He indicated that the patient has all rights to refuse any medical care Medical Noncompliance: Patient is refusing all medical care this time to include life-saving medications, physical therapy, occupational therapy, refusing to ambulate. Patient is not allowing medical staff to perform their duties and protect her from harm and prevent her from having significant life-threatening medical complications Colleague discussed with palliative care physician Dr. Riddle, he states that he is familiar with this patient. He indicates that patient may need to have further evaluation for competency since the patient is clearly indicating that she does not have a condition or conditions that have been objectively identified and patient has been counseled extensively on. He indicates that we' ll need to get case management and legal involved for appropriate management of this patient. Per palliative care patient refused to discuss living will, refused to complete health care surrogate. Candidal intertrigo: under bilateral breasts. Patient refusing Nystatin powder. DVT Prophylaxis: Patient refusing Coumadin/Lovenox Discharge Planning Case management to follow. Sneha Choi July 12, 2016 12:42
[2016-07-12] MEDS: WARFARIN SOD 6 MG TAB PO SCH (16:00)
[2016-07-12 20:00] VITALS: BP 120/79; PULSE 83; RESP 22; TEMP 97.3; O2SAT 97
[2016-07-13 08:00] VITALS: BP 130/77; PULSE 68; RESP 17; TEMP 98.3; O2SAT 95
[2016-07-13] MEDS: SODIUM CHLORIDE 0.9% FLUSH 10 ML FLUSH IV FLUSH SCH ×2 (09:00→21:00)
[2016-07-13] MEDS: ENOXAPARIN SODIUM 80 MG/0.8 ML SYRINGE SQ SCH ×2 (09:00→21:00)
[2016-07-13] MEDS: NYSTATIN 100,000 U/GM PWD 15 GM BTL TOPICAL SCH ×2 (09:00→21:00)
--- NOTE | 2016-07-13 13:42 | HHI.PR ---
Subjective Remarks Follow-up for lower extremity weakness, non-compliance with medication. No acute complaints. Objective Vitals Vital Signs Date Time Temp Pulse Resp B/P Pulse Ox O2 Delivery O2 Flow Rate FiO2 07/13/16 08:00 98.3 68 17 130/77 95 07/12/16 20:00 97.3 83 22 120/79 97 I/O 07/12/16 07/12/16 07/12/16 07/13/16 07/13/16 07/13/16 06:59 14:59 22:59 06:59 14:59 22:59 Intake Total 480 ml 500 ml 1080 ml 240 ml Output Total 3 ml Balance 480 ml 500 ml 1077 ml 240 ml Intake Oral 480 ml 500 ml 1080 ml 240 ml Stool Total 3 ml # Voids 2 7 3 2 # Bowel Movements 2 3 2 Objective Remarks GENERAL: Well-nourished well-developed patient in apparent distress. SKIN: Warm and dry. HEAD: Atraumatic. Normocephalic. CARDIOVASCULAR: Regular rate and rhythm. RESPIRATORY: No accessory muscle use. Clear to auscultation. Breath sounds equal bilaterally. GASTROINTESTINAL: Abdomen soft, non-tender, nondistended. NEUROLOGICAL: Awake and alert. Does not speak but does some signing. PSYCHIATRIC: Affect is appropriate although wearing sunglasses again on exam. Urinary Catheter: No Vascular Central Line Catheter: No A/P Assessment and Plan Bilateral Lower Extremity Weakness, Difficulty w/Ambulation: Subjective. Cervical CT, lumbar CT scans were performed which did not indicate any acute abnormality which would indicate bilateral lower extremity weakness. Patient is refusing PT/OT evaluations Patient refused lumbar puncture for further evaluation. Patient will not undergo MRI study Neurology Dr. Nelson, has evaluated the patient does not have any etiology of the patient's lower extremity weakness. He is recommending angiography of the lumbar spine because of her hypercoagulability state from the recent saddle emboli, however radiologist does not perform any angiography of the spine. Radiologist recommended MRI study of the thoracic and lumbar spine. However, patient was not able to perform MRI study and refuses to have it done. Neurology indicated that there is nothing else they can offer from a neurological standpoint to contribute to the patient's possible etiologies. He indicated that he will sign off and defer continued management to medical team 07/13: Nurse states that patient is nonambulatory and patient has to lift her legs with her hands in order to move them. 07/05 PT note states patient refuses PT. Discussed with Dr. Pritchett. Will order PT, reattempt. Subacute Pulmonary Embolism 06/08/16 with Subtherapeutic INR: During previous hospitalization, patient refused TPA. V/Q scan was performed which could not rule out the possibility of emboli Patient refusing Lovenox/Coumadin at this time Patient indicates that she was told that she does not have any blood clots Patient was given copy of recent CTA for confirmation of her blood clot Colleague discussed with the patient extensively that without anticoagulation she is at increased risk of embolic events to include worsening pulmonary emboli , stroke, . Palliative care was consulted for recommendations. Selective Mutism with Paranoid Schizophrenia: chronic, Patient has been evaluated by psychiatry, Psychiatry reconsulted due to the patient refusing medical care. As indicated by psychiatry the patient has full capacity to make her own medical decisions she is alert and oriented. He indicated that the patient has all rights to refuse any medical care. Has not started any medications. Medical Noncompliance: Patient is refusing all medical care this time to include life-saving medications, physical therapy, occupational therapy, refusing to ambulate. Patient is not allowing medical staff to perform their duties and protect her from harm and prevent her from having significant life-threatening medical complications Colleague discussed with palliative care physician Dr. Riddle, he states that he is familiar with this patient. He indicates that patient may need to have further evaluation for competency since the patient is clearly indicating that she does not have a condition or conditions that have been objectively identified and patient has been counseled extensively on. He indicates that we' ll need to get case management and legal involved for appropriate management of this patient. Per palliative care patient refused to discuss living will, refused to complete health care surrogate. Candidal intertrigo: under bilateral breasts. Patient refusing Nystatin powder. DVT Prophylaxis: Patient refusing Coumadin/Lovenox Discharge Planning 07/13: I spoke with immigration case manager who is inquiring about discharge. Patient is homeless. I informed him that if the patient is nonambulatory we cannot discharge her. I will reassess patient tomorrow. tells me the patient's real name is Mery Krause per her mother. Discussed with Dr. Pritchett. Sneha Choi July 13, 2016 13:42
[2016-07-13] MEDS: WARFARIN SOD 6 MG TAB PO SCH (16:00)
[2016-07-13 20:00] VITALS: BP 111/73; PULSE 73; RESP 21; TEMP 97.1; O2SAT 97
[2016-07-14 08:29] VITALS: BP 121/80; PULSE 64; RESP 18; TEMP 95.5; O2SAT 98
[2016-07-14] MEDS: ENOXAPARIN SODIUM 80 MG/0.8 ML SYRINGE SQ SCH (08:52)
[2016-07-14] MEDS: WARFARIN SOD 6 MG TAB PO SCH (08:52)
[2016-07-14] MEDS: NYSTATIN 100,000 U/GM PWD 15 GM BTL TOPICAL SCH ×2 (08:52→21:00)
[2016-07-14] MEDS: SODIUM CHLORIDE 0.9% FLUSH 10 ML FLUSH IV FLUSH SCH ×2 (08:52→21:00)
--- NOTE | 2016-07-14 11:17 | HHI.PR ---
Subjective Remarks Follow-up for lower extremity weakness. Patient is mute and writes down on paper to communicate with me. She seemed a bit frustrated when asked orientation questions but complied. She states she cannot stand or walk. She states if Dr. Nelson wants more tests that she would be willing to do them. When I asked her about how she refused MRIs, she states that they had been performed and there were results when actually the patient had gone down for MRI but MRIs were never performed. The case planner informs me the patient's real name is Mery Krause per her mother but the patient states this was never her name. Objective Vitals Vital Signs Date Time Temp Pulse Resp B/P Pulse Ox O2 Delivery O2 Flow Rate FiO2 07/14/16 08:29 95.5 64 18 121/80 98 07/13/16 20:00 97.1 73 21 111/73 97 I/O 07/13/16 07/13/16 07/13/16 07/14/16 07/14/16 07/14/16 07:00 15:00 23:00 07:00 15:00 23:00 Intake Total 240 ml 720 ml 720 ml Balance 240 ml 720 ml 720 ml Intake Oral 240 ml 720 ml 720 ml # Voids 3 2 2 4 # Bowel Movements 2 4 4 Objective Remarks GENERAL: Well-nourished well-developed patient in apparent distress. SKIN: Warm and dry. CARDIOVASCULAR: Regular rate and rhythm. RESPIRATORY: No accessory muscle use. Clear to auscultation. Breath sounds equal bilaterally. GASTROINTESTINAL: Abdomen soft, non-tender, nondistended. NEUROLOGICAL: Awake, alert, and oriented to place, city, state, date, president. Does not speak. 0/5 strength in B/L legs. Barely moves toes of both feet. Gross sensation intact over bilateral legs. PSYCHIATRIC: Slightly frustrated when asked orientation questions but compliant and otherwise appropriate. Affect is appropriate although wearing sunglasses again on exam. Urinary Catheter: No Vascular Central Line Catheter: No A/P Assessment and Plan Bilateral Lower Extremity Weakness, Difficulty w/Ambulation: Subjective. Cervical CT, lumbar CT scans were performed which did not indicate any acute abnormality which would indicate bilateral lower extremity weakness. Patient is refusing PT/OT evaluations Patient refused lumbar puncture for further evaluation. Patient will not undergo MRI study Neurology Dr. Nelson, has evaluated the patient does not have any etiology of the patient's lower extremity weakness. He is recommending angiography of the lumbar spine because of her hypercoagulability state from the recent saddle emboli, however radiologist does not perform any angiography of the spine. Radiologist recommended MRI study of the thoracic and lumbar spine. However, patient was not able to perform MRI study and refuses to have it done. Neurology indicated that there is nothing else they can offer from a neurological standpoint to contribute to the patient's possible etiologies. He indicated that he will sign off and defer continued management to medical team 07/13: Nurse states that patient is nonambulatory and patient has to lift her legs with her hands in order to move them. 07/05 PT note states patient refuses PT. 07/14: PT tried to reevaluate patient but patient again refuses therapy. She writes that if Dr. Nelson wants more tests she would comply. Discussed with Dr. Pritchett. Will speak with patient tomorrow regarding performing CTA lumbar to rule out anterior spinal artery ischemia/infarction as Dr. Nelson previously wanted. Subacute Pulmonary Embolism 06/08/16 with Subtherapeutic INR: During previous hospitalization, patient refused TPA. V/Q scan was performed which could not rule out the possibility of emboli Patient refusing Lovenox/Coumadin at this time Patient indicates that she was told that she does not have any blood clots Patient was given copy of recent CTA for confirmation of her blood clot Colleague discussed with the patient extensively that without anticoagulation she is at increased risk of embolic events to include worsening pulmonary emboli , stroke, . Palliative care was consulted for recommendations. Continues to refuse anticoagulation, cancelled; will restart if patient chooses to comply. Selective Mutism with Paranoid Schizophrenia: chronic, Patient has been evaluated by psychiatry, Psychiatry reconsulted due to the patient refusing medical care. As indicated by psychiatry the patient has full capacity to make her own medical decisions she is alert and oriented. He indicated that the patient has all rights to refuse any medical care. Has not started any medications. Medical Noncompliance: Patient is refusing all medical care this time to include life-saving medications, physical therapy, occupational therapy, refusing to ambulate. Patient is not allowing medical staff to perform their duties and protect her from harm and prevent her from having significant life-threatening medical complications Colleague discussed with palliative care physician Dr. Riddle, he states that he is familiar with this patient. He indicates that patient may need to have further evaluation for competency since the patient is clearly indicating that she does not have a condition or conditions that have been objectively identified and patient has been counseled extensively on. He indicates that we' ll need to get case management and legal involved for appropriate management of this patient. Per palliative care patient refused to discuss living will, refused to complete health care surrogate. Candidal intertrigo: under bilateral breasts. Patient refusing Nystatin powder. DVT Prophylaxis: Patient refusing Coumadin/Lovenox Discharge Planning 07/13: I spoke with case planner who is inquiring about discharge. Patient is homeless. I informed him that if the patient is nonambulatory we cannot discharge her. CM tells me the patient's real name is Mery Krause per her mother. Sneha Choi Jul 14, 2016 11:17
[2016-07-14 20:00] VITALS: BP 122/70; PULSE 72; RESP 20; TEMP 96.7; O2SAT 98
[2016-07-15 08:00] VITALS: BP 122/76; PULSE 61; RESP 18; TEMP 97; O2SAT 99
[2016-07-15] MEDS: NYSTATIN 100,000 U/GM PWD 15 GM BTL TOPICAL SCH (09:00)
[2016-07-15] MEDS: SODIUM CHLORIDE 0.9% FLUSH 10 ML FLUSH IV FLUSH SCH (09:00)
--- NOTE | 2016-07-15 11:08 | HHI.PR ---
Subjective Remarks Follow-up for bilateral lower extremity weakness. I asked the patient is if she would be willing to follow through with the CTA of her lumbar spine which was previously ordered by Dr. Nelson, but she states she is unable to have contrast due to allergic reaction including shortness of breath. She insists that the CT can be done without contrast although I explained to her that it would not be beneficial without contrast. She still insists that she had the MRIs performed and that Dr. Nelson has the results but that is untrue. Objective Vitals Vital Signs Date Time Temp Pulse Resp B/P Pulse Ox O2 Delivery O2 Flow Rate FiO2 07/15/16 08:00 97.0 61 18 122/76 99 07/14/16 20:00 96.7 72 20 122/70 98 I/O 07/14/16 07/14/16 07/14/16 07/15/16 07/15/16 07/15/16 07:00 15:00 23:00 07:00 15:00 23:00 Intake Total 720 ml 2520 ml 480 ml Balance 720 ml 2520 ml 480 ml Intake Oral 720 ml 2280 ml 480 ml Oral Supplement 240 ml # Voids 4 1 1 # Bowel Movements 4 1 1 Objective Remarks GENERAL: Well-nourished well-developed patient in apparent distress. SKIN: Warm and dry. CARDIOVASCULAR: Regular rate and rhythm. RESPIRATORY: No accessory muscle use. Clear to auscultation. Breath sounds equal bilaterally. GASTROINTESTINAL: Abdomen soft, non-tender, nondistended. NEUROLOGICAL: Awake and alert. PSYCHIATRIC: Wearing sunglasses again on exam. Does not speak, but writes down everything but patient is appropriate in communicating with me in this way. Urinary Catheter: No Vascular Central Line Catheter: No A/P Assessment and Plan Bilateral Lower Extremity Weakness, Difficulty w/Ambulation: Subjective. Cervical CT, lumbar CT scans were performed which did not indicate any acute abnormality which would indicate bilateral lower extremity weakness. Patient is refusing PT/OT evaluations Patient refused lumbar puncture for further evaluation. Patient will not undergo MRI study Neurology Dr. Nelson, has evaluated the patient does not have any etiology of the patient's lower extremity weakness. He is recommending angiography of the lumbar spine because of her hypercoagulability state from the recent saddle emboli, however radiologist does not perform any angiography of the spine. Radiologist recommended MRI study of the thoracic and lumbar spine. However, patient was not able to perform MRI study and refuses to have it done. Neurology indicated that there is nothing else they can offer from a neurological standpoint to contribute to the patient's possible etiologies. He indicated that he will sign off and defer continued management to medical team 07/13: Nurse states that patient is nonambulatory and patient has to lift her legs with her hands in order to move them. 07/05 PT note states patient refuses PT. 07/14: PT tried to reevaluate patient but patient again refuses therapy. She writes that if Dr. Nelson wants more tests she would comply. 07/15: Again discussed with patient performing CTA of the lumbar spine, but she states she cannot have contrast. She makes clear that she would do a test if it was specifically ordered by Dr. Nelson. I discussed this with Dr. Pritchett. We do not wish to involve Dr. Nelson again at this point in time as the patient has refused testing when he reevaluated her in the past. Even if CTA was to be performed there is no indication the patient would actually proceed with appropriate therapy if abnormality present as she is currently refusing all current treatment for PE. Subacute Pulmonary Embolism 06/08/16 with Subtherapeutic INR: During previous hospitalization, patient refused TPA. V/Q scan was performed which could not rule out the possibility of emboli Patient refusing Lovenox/Coumadin at this time Patient indicates that she was told that she does not have any blood clots Patient was given copy of recent CTA for confirmation of her blood clot Colleague discussed with the patient extensively that without anticoagulation she is at increased risk of embolic events to include worsening pulmonary emboli , stroke, . Palliative care was consulted for recommendations. Anticoagulation discontinued due to patient refusal; will restart if patient chooses to comply. Selective Mutism with Paranoid Schizophrenia: chronic, Patient has been evaluated by psychiatry, Psychiatry reconsulted due to the patient refusing medical care. As indicated by psychiatry the patient has full capacity to make her own medical decisions she is alert and oriented. He indicated that the patient has all rights to refuse any medical care. Has not started any medications. Patient is appropriate on exam. Medical Noncompliance: Patient is refusing all medical care this time to include life-saving medications, physical therapy, occupational therapy, refusing to ambulate. Patient is not allowing medical staff to perform their duties and protect her from harm and prevent her from having significant life-threatening medical complications Colleague discussed with palliative care physician Dr. Riddle, he states that he is familiar with this patient. He indicates that patient may need to have further evaluation for competency since the patient is clearly indicating that she does not have a condition or conditions that have been objectively identified and patient has been counseled extensively on. He indicates that we' ll need to get case management and legal involved for appropriate management of this patient. Per palliative care patient refused to discuss living will, refused to complete health care surrogate. Candidal intertrigo: under bilateral breasts. Patient refusing Nystatin powder. DVT Prophylaxis: Patient refusing Coumadin/Lovenox Discharge Planning 07/13: I spoke with case work aide who is inquiring about discharge. Patient is homeless. I informed him that if the patient is nonambulatory we cannot discharge her. tells me the patient's real name is Mery Krause per her mother. 07/15: I again spoke with case work aide Tyson Andrews in regards to discharge disposition. I informed him that we are not comfortable discharging the patient as it would be unsafe. I inquired about possible placement, but he states the patient does not have insurance currently. She had Medicaid in the past but never reapplied. Her mother lives in [place]. He will address this unique situation with administration at his meeting on Monday and states he can speak with patient in person on Monday as well. Patient to remain hospitalized for now. Sneha Choi Jul 15, 2016 11:08
[2016-07-15 20:00] VITALS: BP 108/67; PULSE 78; RESP 20; TEMP 97.1; O2SAT 97
[2016-07-16 08:00] VITALS: BP 106/75; PULSE 66; RESP 18; TEMP 96.2; O2SAT 97
[2016-07-16] MEDS: SODIUM CHLORIDE 0.9% FLUSH 10 ML FLUSH IV FLUSH SCH ×2 (09:00→21:00)
[2016-07-16] MEDS: NYSTATIN 100,000 U/GM PWD 15 GM BTL TOPICAL SCH ×2 (09:00→21:00)
--- NOTE | 2016-07-16 11:34 | HHI.PR ---
Subjective Remarks Follow-up for bilateral lower extremity weakness, medication non-compliance for PE. Denies SOB. Patient refuses to have IV removed from the left arm and when I asked her why she states that she has small veins. I told her it was not being utilized and she is at risk for infection if it is kept in but she still refuses to have it removed. She writes on her paper that she is done consulting with me. Objective Vitals Vital Signs Date Time Temp Pulse Resp B/P Pulse Ox O2 Delivery O2 Flow Rate FiO2 07/16/16 08:00 96.2 66 18 106/75 97 07/15/16 20:00 97.1 78 20 108/67 97 I/O 07/15/16 07/15/16 07/15/16 07/16/16 07/16/16 07/16/16 07:00 15:00 23:00 07:00 15:00 23:00 Intake Total 480 ml 1560 ml 480 ml Balance 480 ml 1560 ml 480 ml Intake Oral 480 ml 1560 ml 480 ml # Voids 1 3 3 # Bowel Movements 1 2 0 Objective Remarks GENERAL: Well-nourished well-developed patient in apparent distress. SKIN: Warm and dry. IV to left arm. CARDIOVASCULAR: Regular rate and rhythm. RESPIRATORY: No accessory muscle use. Clear to auscultation. Breath sounds equal bilaterally. GASTROINTESTINAL: Abdomen soft, non-tender, nondistended. NEUROLOGICAL: Awake and alert. PSYCHIATRIC: Wearing sunglasses again on exam. Does not speak, but writes down everything; patient is appropriate in communicating with me in this way. She has an action she does with her hands before she writes; unsure if this is sign language versus an idiosyncrasy. Urinary Catheter: No Vascular Central Line Catheter: No A/P Assessment and Plan Bilateral Lower Extremity Weakness, Difficulty w/Ambulation: Subjective. Cervical CT, lumbar CT scans were performed which did not indicate any acute abnormality which would indicate bilateral lower extremity weakness. Patient is refusing PT/OT evaluations Patient refused lumbar puncture for further evaluation. Patient will not undergo MRI study Neurology Dr. Nelson, has evaluated the patient does not have any etiology of the patient's lower extremity weakness. He is recommending angiography of the lumbar spine because of her hypercoagulability state from the recent saddle emboli, however radiologist does not perform any angiography of the spine. Radiologist recommended MRI study of the thoracic and lumbar spine. However, patient was not able to perform MRI study and refuses to have it done. Neurology indicated that there is nothing else they can offer from a neurological standpoint to contribute to the patient's possible etiologies. He indicated that he will sign off and defer continued management to medical team 07/13: Nurse states that patient is nonambulatory and patient has to lift her legs with her hands in order to move them. 07/05 PT note states patient refuses PT. 07/14: PT tried to reevaluate patient but patient again refuses therapy. She writes that if Dr. Nelson wants more tests she would comply. 07/15: Again discussed with patient performing CTA of the lumbar spine, but she states she cannot have contrast. She makes clear that she would do a test if it was specifically ordered by Dr. Nelson. I discussed this with Dr. Pritchett. We do not wish to involve Dr. Nelson again at this point in time as the patient has refused testing when he reevaluated her in the past. Even if CTA was to be performed there is no indication the patient would actually proceed with appropriate therapy if abnormality present as she is currently refusing all current treatment for PE. Subacute Pulmonary Embolism 06/08/16 with Subtherapeutic INR: During previous hospitalization, patient refused TPA. V/Q scan was performed which could not rule out the possibility of emboli Patient refusing Lovenox/Coumadin at this time Patient indicates that she was told that she does not have any blood clots Patient was given copy of recent CTA for confirmation of her blood clot Colleague discussed with the patient extensively that without anticoagulation she is at increased risk of embolic events to include worsening pulmonary emboli , stroke, . Palliative care was consulted for recommendations. Anticoagulation discontinued due to patient refusal; will restart if patient chooses to comply. Selective Mutism with Paranoid Schizophrenia: chronic. Patient has been evaluated by psychiatry, Psychiatry reconsulted due to the patient refusing medical care. As indicated by psychiatry the patient has full capacity to make her own medical decisions she is alert and oriented. He indicated that the patient has all rights to refuse any medical care. Has not started any medications. Medical Noncompliance: Patient is refusing all medical care this time to include life-saving medications, physical therapy, occupational therapy, refusing to ambulate. Patient is not allowing medical staff to perform their duties and protect her from harm and prevent her from having significant life-threatening medical complications Colleague discussed with palliative care physician Dr. Riddle, he states that he is familiar with this patient. He indicates that patient may need to have further evaluation for competency since the patient is clearly indicating that she does not have a condition or conditions that have been objectively identified and patient has been counseled extensively on. He indicates that we' ll need to get case management and legal involved for appropriate management of this patient. Per palliative care patient refused to discuss living will, refused to complete health care surrogate. Candidal intertrigo: under bilateral breasts. Nystatin powder. DVT Prophylaxis: Patient refusing Coumadin/Lovenox Discharge Planning 07/13: I spoke with lead case manager who is inquiring about discharge. Patient is homeless. I informed him that if the patient is nonambulatory we cannot discharge her. tells me the patient's real name is Mery Krause per her mother. 07/15: I again spoke with lead case manager Tyson Andrews in regards to discharge disposition. I informed him that we are not comfortable discharging the patient as it would be unsafe. I inquired about possible placement, but he states the patient does not have insurance currently. She had Medicaid in the past but never reapplied. Her mother lives in [place]. He will address this unique situation with administration at his meeting on Monday and states he can speak with patient in person on Monday as well. Patient to remain hospitalized for now. Sneha Choi Jul 16, 2016 11:34
[2016-07-16 20:00] VITALS: BP 123/74; PULSE 80; RESP 19; TEMP 99.8; O2SAT 97
[2016-07-17 08:00] VITALS: BP 108/69; PULSE 74; RESP 18; TEMP 96.8; O2SAT 97
[2016-07-17] MEDS: SODIUM CHLORIDE 0.9% FLUSH 10 ML FLUSH IV FLUSH SCH ×2 (08:49→21:00)
[2016-07-17] MEDS: NYSTATIN 100,000 U/GM PWD 15 GM BTL TOPICAL SCH ×2 (08:50→21:00)
--- NOTE | 2016-07-17 10:27 | HHI.PR ---
Subjective Remarks Follow-up for bilateral lower extremity weakness, medication non-compliance for PE. Patient waves me away and refuses exam. Objective Vitals Vital Signs Date Time Temp Pulse Resp B/P Pulse Ox O2 Delivery O2 Flow Rate FiO2 07/16/16 20:00 99.8 80 19 123/74 97 I/O 07/16/16 07/16/16 07/16/16 07/17/16 07/17/16 07/17/16 07:00 15:00 23:00 07:00 15:00 23:00 Intake Total 480 ml 480 ml 1040 ml 120 ml Output Total 3 ml Balance 480 ml 480 ml 1037 ml 120 ml Intake Oral 480 ml 480 ml 1040 ml 120 ml Stool Total 3 ml # Voids 3 3 7 2 # Bowel Movements 0 1 2 2 Objective Remarks Physical exam by observation only as patient refuses regular exam. GENERAL: Well-nourished well-developed patient in apparent distress. RESPIRATORY: No accessory muscle use. RR normal. NEUROLOGICAL: Awake and alert. R leg is flexed at knee and patient does move her Left leg slightly. PSYCHIATRIC: Wearing sunglasses. Urinary Catheter: No Vascular Central Line Catheter: No A/P Assessment and Plan Bilateral Lower Extremity Weakness, Difficulty w/Ambulation: Subjective. Cervical CT, lumbar CT scans were performed which did not indicate any acute abnormality which would indicate bilateral lower extremity weakness. Patient is refusing PT/OT evaluations Patient refused lumbar puncture for further evaluation. Patient will not undergo MRI study Neurology Dr. Nelson, has evaluated the patient does not have any etiology of the patient's lower extremity weakness. He is recommending angiography of the lumbar spine because of her hypercoagulability state from the recent saddle emboli, however radiologist does not perform any angiography of the spine. Radiologist recommended MRI study of the thoracic and lumbar spine. However, patient was not able to perform MRI study and refuses to have it done. Neurology indicated that there is nothing else they can offer from a neurological standpoint to contribute to the patient's possible etiologies. He indicated that he will sign off and defer continued management to medical team 07/13: Nurse states that patient is nonambulatory and patient has to lift her legs with her hands in order to move them. 07/05 PT note states patient refuses PT. 07/14: PT tried to reevaluate patient but patient again refuses therapy. She writes that if Dr. Nelson wants more tests she would comply. 07/15: Again discussed with patient performing CTA of the lumbar spine, but she states she cannot have contrast. She makes clear that she would do a test if it was specifically ordered by Dr. Nelson. I discussed this with Dr. Pritchett. We do not wish to involve Dr. Nelson again at this point in time as the patient has refused testing when he reevaluated her in the past. Even if CTA was to be performed there is no indication the patient would actually proceed with appropriate therapy if abnormality present as she is currently refusing all current treatment for PE. Subacute Pulmonary Embolism 06/08/16 with Subtherapeutic INR: During previous hospitalization, patient refused TPA. V/Q scan was performed which could not rule out the possibility of emboli Patient refusing Lovenox/Coumadin at this time Patient indicates that she was told that she does not have any blood clots Patient was given copy of recent CTA for confirmation of her blood clot Colleague discussed with the patient extensively that without anticoagulation she is at increased risk of embolic events to include worsening pulmonary emboli , stroke, . Palliative care was consulted for recommendations. Anticoagulation discontinued due to patient refusal; will restart if patient chooses to comply. Selective Mutism with Paranoid Schizophrenia: chronic. Patient has been evaluated by psychiatry, Psychiatry reconsulted due to the patient refusing medical care. As indicated by psychiatry the patient has full capacity to make her own medical decisions she is alert and oriented. He indicated that the patient has all rights to refuse any medical care. Has not started any medications. Medical Noncompliance: Patient is refusing all medical care this time to include life-saving medications, physical therapy, occupational therapy, refusing to ambulate. Patient is not allowing medical staff to perform their duties and protect her from harm and prevent her from having significant life-threatening medical complications Colleague discussed with palliative care physician Dr. Riddle, he states that he is familiar with this patient. He indicates that patient may need to have further evaluation for competency since the patient is clearly indicating that she does not have a condition or conditions that have been objectively identified and patient has been counseled extensively on. He indicates that we' ll need to get case management and legal involved for appropriate management of this patient. Per palliative care patient refused to discuss living will, refused to complete health care surrogate. Candidal intertrigo: under bilateral breasts. Nystatin powder. DVT Prophylaxis: Patient refusing Coumadin/Lovenox Discharge Planning 07/13: I spoke with upper caser who is inquiring about discharge. Patient is homeless. I informed him that if the patient is nonambulatory we cannot discharge her. CM tells me the patient's real name is Mery Krause per her mother. 07/15: I again spoke with upper caser Tyson Andrews in regards to discharge disposition. I informed him that we are not comfortable discharging the patient as it would be unsafe. I inquired about possible placement, but he states the patient does not have insurance currently. She had Medicaid in the past but never reapplied. Her mother lives in [place]. He will address this unique situation with administration at his meeting on Monday and states he can speak with patient in person on Monday as well. Patient to remain hospitalized for now. Sneha Choi Jul 17, 2016 10:27
[2016-07-17 20:00] VITALS: BP 118/77; PULSE 81; RESP 20; TEMP 97.7; O2SAT 98
[2016-07-18] MEDS: SODIUM CHLORIDE 0.9% FLUSH 10 ML FLUSH IV FLUSH SCH ×2 (09:00→21:00)
[2016-07-18] MEDS: NYSTATIN 100,000 U/GM PWD 15 GM BTL TOPICAL SCH ×2 (09:00→21:00)
[2016-07-18 09:22] VITALS: BP 110/69; PULSE 74; RESP 19; TEMP 97.3; O2SAT 97
--- NOTE | 2016-07-18 19:58 | HHI.PR ---
Subjective Remarks Late entry. Patient evaluated this morning. RN states patient has been urinating and stooling in the bed and has also been trying to order an inordinate amount of food; also drinking a lot of glucerna and ensure which is not ordered for the patient. Patient is mute. Answers my questions by writing or nodding. Denies any SOB. When I asked to examine her legs, she requests that I not "squeeze" them, but denies any pain in the legs. When I asked her if she can move her legs she indicates 'no'. Objective Vitals Vital Signs Date Time Temp Pulse Resp B/P Pulse Ox O2 Delivery O2 Flow Rate FiO2 07/18/16 09:22 97.3 74 19 110/69 97 07/17/16 20:00 97.7 81 20 118/77 98 I/O 07/17/16 07/17/16 07/17/16 07/18/16 07/18/16 07/18/16 07:00 15:00 23:00 07:00 15:00 23:00 Intake Total 120 ml 1920 ml 240 ml 300 ml Output Total 1 ml Balance 120 ml 1919 ml 240 ml 300 ml Intake Oral 120 ml 1920 ml 240 ml 300 ml Stool Total 1 ml # Voids 2 10 2 3 # Bowel Movements 2 3 2 Objective Remarks GENERAL: Well-nourished well-developed patient in apparent distress. CARDIOVASCULAR: Normal rate and regular rhythm. RESPIRATORY: No accessory muscle use. CTAB. MUSCULOSKELETAL: 2+ DP pulses bilaterally. NEUROLOGICAL: Awake and alert. PSYCHIATRIC: Normal affect. Urinary Catheter: No Vascular Central Line Catheter: No A/P Assessment and Plan Bilateral Lower Extremity Weakness, Difficulty w/Ambulation: Subjective. Cervical CT, lumbar CT scans were performed which did not indicate any acute abnormality which would indicate bilateral lower extremity weakness. Patient is refusing PT/OT evaluations Patient refused lumbar puncture for further evaluation. Patient will not undergo MRI study Neurology Dr. Nelson, has evaluated the patient does not have any etiology of the patient's lower extremity weakness. He is recommending angiography of the lumbar spine because of her hypercoagulability state from the recent saddle emboli, however radiologist does not perform any angiography of the spine. Radiologist recommended MRI study of the thoracic and lumbar spine. However, patient was not able to perform MRI study and refuses to have it done. Neurology indicated that there is nothing else they can offer from a neurological standpoint to contribute to the patient's possible etiologies. He indicated that he will sign off and defer continued management to medical team 07/13: Nurse states that patient is nonambulatory and patient has to lift her legs with her hands in order to move them. 07/05 PT note states patient refuses PT. 07/14: PT tried to reevaluate patient but patient again refuses therapy. She writes that if Dr. Nelson wants more tests she would comply. 07/15: Again discussed with patient performing CTA of the lumbar spine, but she states she cannot have contrast. She makes clear that she would do a test if it was specifically ordered by Dr. Nelson. I discussed this with Dr. Pritchett. We do not wish to involve Dr. Nelson again at this point in time as the patient has refused testing when he reevaluated her in the past. Even if CTA was to be performed there is no indication the patient would actually proceed with appropriate therapy if abnormality present as she is currently refusing all current treatment for PE. Subacute Pulmonary Embolism 06/08/16 with Subtherapeutic INR: During previous hospitalization, patient refused TPA. V/Q scan was performed which could not rule out the possibility of emboli Patient refusing Lovenox/Coumadin at this time Patient indicates that she was told that she does not have any blood clots Patient was given copy of recent CTA for confirmation of her blood clot Colleague discussed with the patient extensively that without anticoagulation she is at increased risk of embolic events to include worsening pulmonary emboli , stroke, . Palliative care was consulted for recommendations. Anticoagulation discontinued due to patient refusal; will restart if patient chooses to comply. Selective Mutism with Paranoid Schizophrenia: chronic. Patient has been evaluated by psychiatry, Psychiatry reconsulted due to the patient refusing medical care. As indicated by psychiatry the patient has full capacity to make her own medical decisions she is alert and oriented. He indicated that the patient has all rights to refuse any medical care. Has not started any medications. Medical Noncompliance: Patient is refusing all medical care this time to include life-saving medications, physical therapy, occupational therapy, refusing to ambulate. Patient is not allowing medical staff to perform their duties and protect her from harm and prevent her from having significant life-threatening medical complications Colleague discussed with palliative care physician Dr. Riddle, he states that he is familiar with this patient. He indicates that patient may need to have further evaluation for competency since the patient is clearly indicating that she does not have a condition or conditions that have been objectively identified and patient has been counseled extensively on. He indicates that we' ll need to get case management and legal involved for appropriate management of this patient. Per palliative care patient refused to discuss living will, refused to complete health care surrogate. Candidal intertrigo: under bilateral breasts. Nystatin powder. DVT Prophylaxis: Patient refusing Coumadin/Lovenox Discharge Planning 07/13: I spoke with bilingual patient support caseworker who is inquiring about discharge. Patient is homeless. I informed him that if the patient is nonambulatory we cannot discharge her. CM tells me the patient's real name is Mery Krause per her mother. 07/15: I again spoke with bilingual patient support caseworker Tyson Andrews in regards to discharge disposition. I informed him that we are not comfortable discharging the patient as it would be unsafe. I inquired about possible placement, but he states the patient does not have insurance currently. She had Medicaid in the past but never reapplied. Her mother lives in [place]. He will address this unique situation with administration at his meeting on Monday and states he can speak with patient in person on Monday as well. Patient to remain hospitalized for now. Sneha Choi Jul 18, 2016 19:58
[2016-07-18 20:00] VITALS: BP 120/73; PULSE 77; RESP 20; TEMP 98.5; O2SAT 100
--- NOTE | 2016-07-19 14:14 | HHI.PR ---
Subjective Remarks Patient seen today in follow-up for weakness in bilateral lower extremities. Patient still elective mutism. She is not cooperating with physical exam or discussion. She gets shakes her head no and that there is nothing that we can do for her. Objective Vitals Vital Signs Date Time Temp Pulse Resp B/P Pulse Ox O2 Delivery O2 Flow Rate FiO2 07/18/16 20:00 98.5 77 20 120/73 100 I/O 07/18/16 07/18/16 07/18/16 07/19/16 07/19/16 07/19/16 07:00 15:00 23:00 07:00 15:00 23:00 Intake Total 240 ml 300 ml 360 ml 600 ml Balance 240 ml 300 ml 360 ml 600 ml Intake Oral 240 ml 300 ml 360 ml 600 ml # Voids 2 3 1 3 # Bowel Movements 2 1 1 Objective Remarks GENERAL: Well-developed, well-nourished, in no acute distress. Urinary Catheter: No Vascular Central Line Catheter: No A/P Assessment and Plan Bilateral Lower Extremity Weakness, Difficulty w/Ambulation: Subjective. Cervical CT, lumbar CT scans were performed which did not indicate any acute abnormality which would indicate bilateral lower extremity weakness. Patient is refusing PT/OT evaluations Patient refused lumbar puncture for further evaluation. Patient will not undergo MRI study Neurology Dr. Nelson, has evaluated the patient does not have any etiology of the patient's lower extremity weakness. He is recommending angiography of the lumbar spine because of her hypercoagulability state from the recent saddle emboli, however radiologist does not perform any angiography of the spine. Radiologist recommended MRI study of the thoracic and lumbar spine. However, patient was not able to perform MRI study yesterday and refuses to have it done. Neurology indicated that there is nothing else they can offer from a neurological standpoint to contribute to the patient's possible etiologies. He indicated that he will sign off and defer continue management to medical team Subacute Pulmonary Embolism 06/08/16 with Subtherapeutic INR: during previous hospitalization, patient refused TPA, V/Q scan was performed which could not rule out the possibility of emboli Patient refusing Lovenox/Coumadin at this time Patient indicates that she was told that she does not have any blood clots Patient was given copy of recent CTA for confirmation of her blood clot, however, patient states that that is not her It was discussed with the patient extensively that without anticoagulation she is at increased risk of embolic events to include worsening pulmonary emboli, stroke, . Palliative care was consulted for recommendations. Selective Mutism with Paranoid Schizophrenia: chronic, Patient has been evaluated by psychiatry, Psychiatry reconsulted due to the patient refusing medical care. As indicated by psychiatry the patient has full capacity to make her own medical decisions she is alert and orientated. 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 Refusal of speaking with caregivers about her condition. Likely need evaluation for competency. Patient will likely need inpatient psychiatric management Medical Noncompliance: Patient is refusing all medical care this time to include life-saving medications, physical therapy, occupational therapy, refusing to ambulate. Patient is not allowing medical staff to perform their duties and protect her from harm and prevent her from having significant life-threatening medical complications Discussed with palliative care physician Dr. Riddle, he states that he is familiar with this patient. He indicates that patient may need to have further evaluation for competency since the patient is clearly indicating that she does not have a condition or conditions that have been objectively identified and patient has been counseled extensively on. He indicates that we'll need to get case management and legals involved for appropriate management of this patient. Candidal intertrigo: under bilateral breasts. Patient refusing Nystatin powder. DVT Prophylaxis: Patient refusing Coumadin/Lovenox Discharge Planning Unable to determine discharge planning this time as patient is refusing all medical treatment, management, therapies. Case management consulted for possible administration evaluation with ethics, legal Steven Mccray Jul 19, 2016 14:14
[2016-07-19] MEDS: NYSTATIN 100,000 U/GM PWD 15 GM BTL TOPICAL SCH ×2 (14:46→21:22)
[2016-07-19 20:00] VITALS: BP 113/69; PULSE 75; RESP 20; TEMP 98.4; O2SAT 97
--- NOTE | 2016-07-20 07:59 | HHI.PR ---
Subjective Remarks Psychiatry is asked to re-evaluate this patient for "competency." Patient seen and examined with nurse. Chart reviewed. I see that the patient has been followed by Dr. Guthrie across two separate hospitalizations. He did comment on patient's decision making capacity in a limited fashion in his note of 07/07: "[place] 4Id Patient seems to understand the reason of her hospitalization and consequences of leaving AMA. There is no psychiatric contraindication for the patient to continue her medical treatment, and she has decision-making capacity to leave AMA, even though the patient reportedly states that she will stay in the hospital." I further note the patient has been followed by Dr. Jacinto from neuropsychology who commented in his initial assessment, "She is considered to be cognitively capable of making decisions of a legal, financial and medical nature. She demonstrates the requisite ability to appreciate a situation and its likely consequences and she demonstrates the ability to manipulate information rationally." Case discussed with nursing staff, who reports that the patient is "refusing to talk, refusing to walk, refusing to be cleaned up." On my evaluation today, patient is electively mute. She is, as noted by previous evaluators, disheveled and wearing sunglasses in a darkened room. When I introduce myself, she gestures for me to leave. She is calm. She does not appear to be responding to internal stimuli. She does allow me to remain to explain the purpose of my consultation, and then by writing asks me politely to leave. Given that the patient is refusing psychiatric evaluation, my examination is per force limited. Objective Exam Patient is lying in bed. She is somewhat disheveled. She is presently calm. She is electively mute but does laugh a little when I introduce myself. She does move her arms freely, but I note that she uses her hands to reposition her legs. She is electively mute. She does not appear to be responding to internal stimuli. She does not verbalize or write anything to suggest active suicidal or homicidal ideation. Insight and judgement are presently unclear. Labs Labs reviewed. Item Value Date Time White Blood Count 9.9 TH/MM3 07/01/16 1650 Hemoglobin 12.4 GM/DL 07/01/16 1650 Platelet Count 335 TH/MM3 07/01/16 1650 Sodium Level 143 MEQ/L 07/02/16 1020 Potassium Level 4.0 MEQ/L 07/02/16 1020 Chloride Level 109 MEQ/L H 07/02/16 1020 Carbon Dioxide Level 25.9 MEQ/L 07/02/16 1020 Blood Urea Nitrogen 15 MG/DL 07/02/16 1020 Creatinine 0.79 MG/DL 07/02/16 1020 Random Glucose 143 MG/DL H 07/02/16 1020 Aspartate Amino Transf (AST/SGOT) 13 U/L L 07/02/16 1020 Alanine Aminotransferase (ALT/SGPT) 27 U/L 07/02/16 1020 Alkaline Phosphatase 53 U/L 07/02/16 1020 Total Creatine Kinase 64 U/L 07/02/16 1020 Human Chorionic Gonadotropin, Quant 5 MIU/ML 07/02/16 1020 Vitals/IOs Vital Signs Date Time Temp Pulse Resp B/P Pulse Ox O2 Delivery O2 Flow Rate FiO2 07/19/16 20:00 98.4 75 20 113/69 97 Intake and Output 07/19/16 07/19/16 07/20/16 08:00 16:00 00:00 Intake Total 600 ml 480 ml Balance 600 ml 480 ml Assessment & Plan Problem List: (1) Encounter for psychiatric assessment ICD Code: Z76.89 Assessment & Plan This is a 40 year-old female presently admitted to the medical service for management of lower extremity weakness and PE. Psychiatry is asked to evaluate the patient for decision-making capacity as I gather she has been refusing care. My evaluation of the patient was quite limited, as noted above, but the patient has been judged to have at least some degree of capacity previously by both Dr. Jacinto and Dr. Guthrie. I would suggest that the nature of the question at issue in the present case lies at the nexus of medicine and ethics, to wit: What are the primary team's obligations to this patient previously judged capacitated and now refusing care ? I would recommend consulting the bioethics committee to gain insight into this problem. I do not see any indication for psychiatric hospitalization at this time: the patient is not presently agitated or obviously responding to internal stimuli or otherwise in psychic distress, and in any event this course of action would likely merely complicate the ethical question as such hospitalization would doubtless have to be involuntary in a patient already deemed capacitated. I do not think it would be productive to [place] the patient to force psychiatric evaluation as she seems comfortable to refuse evaluation, and I suspect she will continue to do so. I have nothing further to add at this time. I will not plan to make follow-up visits with this patient unless requested by primary team or patient herself. I have invited the patient to call upon psychiatric consultation when and if she should desire it. Case discussed with RN. Thank you for this consultation. Kosta Friend MD Jul 20, 2016 07:59
[2016-07-20] MEDS: NYSTATIN 100,000 U/GM PWD 15 GM BTL TOPICAL SCH ×2 (09:00→21:00)
[2016-07-20] MEDS: SODIUM CHLORIDE 0.9% FLUSH 10 ML FLUSH IV FLUSH SCH ×2 (09:00→21:00)
[2016-07-20 09:19] VITALS: BP 104/76; PULSE 73; RESP 18; TEMP 96.8; O2SAT 97
--- NOTE | 2016-07-20 10:42 | HHI.PR ---
Subjective Remarks Patient seen today for follow-up on noncompliance, lower extremity weakness and the presence of nursing staff. When asked if she has any concerns or complaints. Patient does not speak. She is sitting there writing in her notebook about her breakfast and at times in which she has writing the call bowel for service. She would not look up and acknowledge me. She would not indicate that she had any problems or concerns. Objective Vitals Vital Signs Date Time Temp Pulse Resp B/P Pulse Ox O2 Delivery O2 Flow Rate FiO2 07/20/16 09:19 96.8 73 18 104/76 97 07/19/16 20:00 98.4 75 20 113/69 97 I/O 07/19/16 07/19/16 07/19/16 07/20/16 07/20/16 07/20/16 07:00 15:00 23:00 07:00 15:00 23:00 Intake Total 600 ml 480 ml 480 ml Balance 600 ml 480 ml 480 ml Intake Oral 600 ml 480 ml 480 ml # Voids 3 1 2 # Bowel Movements 1 1 0 Objective Remarks GENERAL: Well-developed, well-nourished, in no acute distress. Urinary Catheter: No Vascular Central Line Catheter: No A/P Assessment and Plan Bilateral Lower Extremity Weakness, Difficulty w/Ambulation: Subjective. Cervical CT, lumbar CT scans were performed which did not indicate any acute abnormality which would indicate bilateral lower extremity weakness. Patient is refusing PT/OT evaluations Patient refused lumbar puncture for further evaluation. Patient will not undergo MRI study Neurology Dr. Nelson, has evaluated the patient does not have any etiology of the patient's lower extremity weakness. He is recommending angiography of the lumbar spine because of her hypercoagulability state from the recent saddle emboli, however radiologist does not perform any angiography of the spine. Radiologist recommended MRI study of the thoracic and lumbar spine. However, patient was not able to perform MRI study yesterday and refuses to have it done. Neurology indicated that there is nothing else they can offer from a neurological standpoint to contribute to the patient's possible etiologies. He indicated that he will sign off and defer continue management to medical team Subacute Pulmonary Embolism 06/08/16 with Subtherapeutic INR: during previous hospitalization, patient refused TPA, V/Q scan was performed which could not rule out the possibility of emboli Patient refusing Lovenox/Coumadin Patient indicates that she was told that she does not have any blood clots Patient was given copy of recent CTA for confirmation of her blood clot, however, patient states that that is not her It was discussed with the patient extensively that without anticoagulation she is at increased risk of embolic events to include worsening pulmonary emboli, stroke, . Palliative care was consulted for recommendations. Selective Mutism with Paranoid Schizophrenia: chronic, Patient has been evaluated by psychiatry, Psychiatry reconsulted due to the patient refusing medical care. As indicated by psychiatry the patient has full capacity to make her own medical decisions she is alert and orientated. 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 Refusal of speaking with caregivers about her condition. Likely need evaluation for competency. Patient will likely need inpatient psychiatric management Psychiatry did reevaluated the patient however patient would not let psychiatrist head start coordinator or examine her. Psychiatrist referred back to previous notes indicate that patient has at least some degree of capacity. Psychiatrist is recommending that patient be evaluated by ethics committee Medical Noncompliance: Patient is refusing all medical care this time to include life-saving medications, physical therapy, occupational therapy, refusing to ambulate. Patient is not allowing medical staff to perform their duties and protect her from harm and prevent her from having significant life-threatening medical complications Discussed with palliative care physician Dr. Riddle, he states that he is familiar with this patient. He indicates that patient may need to have further evaluation for competency since the patient is clearly indicating that she does not have a condition or conditions that have been objectively identified and patient has been counseled extensively on. He indicates that we'll need to get case management and legals involved for appropriate management of this patient. Candidal intertrigo: under bilateral breasts. Patient refusing Nystatin powder. DVT Prophylaxis: Patient refusing Coumadin/Lovenox Discharge Planning Unable to determine discharge planning this time as patient is refusing all medical treatment, management, therapies. Case management consulted for possible administration evaluation with ethics, legal Steven Mccray Jul 20, 2016 10:42
[2016-07-20 20:00] VITALS: BP 103/62; PULSE 82; RESP 21; TEMP 97.6; O2SAT 98
[2016-07-21 08:00] VITALS: BP 93/67; PULSE 65; RESP 16; TEMP 97.3; O2SAT 97
[2016-07-21] MEDS: SODIUM CHLORIDE 0.9% FLUSH 10 ML FLUSH IV FLUSH SCH ×2 (08:39→21:00)
[2016-07-21] MEDS: NYSTATIN 100,000 U/GM PWD 15 GM BTL TOPICAL SCH ×2 (08:40→21:57)
--- NOTE | 2016-07-21 10:54 | HHI.PR ---
Subjective Remarks Patient seen today for follow-up on noncompliance, elective mutism, subjective lower extremity weakness. Patient as always is still reluctant to discuss her condition, speech, allow to be examined. When asked if she has any problems or any new condition and she shook her head no. Objective Vitals Vital Signs Date Time Temp Pulse Resp B/P Pulse Ox O2 Delivery O2 Flow Rate FiO2 07/21/16 08:00 97.3 65 16 93/67 97 07/20/16 20:00 97.6 82 21 103/62 98 I/O 07/20/16 07/20/16 07/20/16 07/21/16 07/21/16 07/21/16 07:00 15:00 23:00 07:00 15:00 23:00 Intake Total 480 ml 720 ml 120 ml Balance 480 ml 720 ml 120 ml Intake Oral 480 ml 720 ml 120 ml # Voids 2 4 1 # Bowel Movements 0 0 Objective Remarks GENERAL: Well-developed, well-nourished, in no acute distress. Urinary Catheter: No Vascular Central Line Catheter: No A/P Assessment and Plan Bilateral Lower Extremity Weakness, Difficulty w/Ambulation: Subjective. Cervical CT, lumbar CT scans were performed which did not indicate any acute abnormality which would indicate bilateral lower extremity weakness. Patient is refusing PT/OT evaluations Patient refused lumbar puncture for further evaluation. Patient will not undergo MRI study Neurology Dr. Nelson, has evaluated the patient does not have any etiology of the patient's lower extremity weakness. He is recommending angiography of the lumbar spine because of her hypercoagulability state from the recent saddle emboli, however radiologist does not perform any angiography of the spine. Radiologist recommended MRI study of the thoracic and lumbar spine. However, patient was not able to perform MRI study yesterday and refuses to have it done. Neurology indicated that there is nothing else they can offer from a neurological standpoint to contribute to the patient's possible etiologies. He indicated that he will sign off and defer continue management to medical team Subacute Pulmonary Embolism 06/08/16 with Subtherapeutic INR: during previous hospitalization, patient refused TPA, V/Q scan was performed which could not rule out the possibility of emboli Patient refusing Lovenox/Coumadin Patient indicates that she was told that she does not have any blood clots Patient was given copy of recent CTA for confirmation of her blood clot, however, patient states that that is not her It was discussed with the patient extensively that without anticoagulation she is at increased risk of embolic events to include worsening pulmonary emboli, stroke, . Palliative care was consulted for recommendations. Selective Mutism with Paranoid Schizophrenia: chronic, Patient has been evaluated by psychiatry, Psychiatry reconsulted due to the patient refusing medical care. As indicated by psychiatry the patient has full capacity to make her own medical decisions she is alert and orientated. 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 Refusal of speaking with caregivers about her condition. Likely need evaluation for competency. Patient will likely need inpatient psychiatric management Psychiatry did reevaluated the patient however patient would not let psychiatrist leakage tester or examine her. Psychiatrist referred back to previous notes indicate that patient has at least some degree of capacity. Psychiatrist is recommending that patient be evaluated by ethics committee Medical Noncompliance: Patient is refusing all medical care this time to include life-saving medications, physical therapy, occupational therapy, refusing to ambulate. Patient is not allowing medical staff to perform their duties and protect her from harm and prevent her from having significant life-threatening medical complications Discussed with palliative care physician Dr. Riddle, he states that he is familiar with this patient. He indicates that patient may need to have further evaluation for competency since the patient is clearly indicating that she does not have a condition or conditions that have been objectively identified and patient has been counseled extensively on. He indicates that we'll need to get case management and legals involved for appropriate management of this patient. Candidal intertrigo: under bilateral breasts. Patient refusing Nystatin powder. DVT Prophylaxis: Patient refusing Coumadin/Lovenox Discharge Planning Unable to determine discharge planning this time as patient is refusing all medical treatment, management, therapies. Case management consulted for possible administration evaluation with ethics, legal Steven Mccray Jul 21, 2016 10:54
[2016-07-21 20:00] VITALS: BP 119/74; PULSE 67; RESP 18; TEMP 98.3; O2SAT 98
[2016-07-22] MEDS: NYSTATIN 100,000 U/GM PWD 15 GM BTL TOPICAL SCH ×2 (07:50→21:00)
[2016-07-22] MEDS: SODIUM CHLORIDE 0.9% FLUSH 10 ML FLUSH IV FLUSH SCH ×2 (07:50→21:00)
[2016-07-22 08:00] VITALS: BP 104/70; PULSE 59; RESP 18; TEMP 96.2; O2SAT 97
--- NOTE | 2016-07-22 09:40 | HHI.PR ---
Subjective Remarks Patient seen today with nurse in the room on follow-up for noncompliance, subjective lower extremity weakness. Patient still with elective mutism. She does respond to questions with nodding of her head. She does not indicate that she has any new complaints. She indicates that there is nothing that we can do for her. She still refusing to get out of bed, have physical therapy evaluate her, take medications. Objective Vitals Vital Signs Date Time Temp Pulse Resp B/P Pulse Ox O2 Delivery O2 Flow Rate FiO2 07/21/16 20:00 98.3 67 18 119/74 98 I/O 07/21/16 07/21/16 07/21/16 07/22/16 07/22/16 07/22/16 07:00 15:00 23:00 07:00 15:00 23:00 Intake Total 120 ml 540 ml 400 ml Balance 120 ml 540 ml 400 ml Intake Oral 120 ml 540 ml 400 ml # Voids 1 3 1 # Bowel Movements 1 0 Objective Remarks GENERAL: Well-developed, well-nourished, in no acute distress. CARDIAC: Regular rhythm, regular rate. S1/S2. No murmurs gallops or rubs RESPIRATORY: Lungs are clear to auscultation bilaterally. No wheeze, rhonchi, Rales no use of accessory muscles on inspiration or expiration NEUROLOGY: Patient's mood appears to be defiant and resistant to verbal communication and affect appears to be flat Urinary Catheter: No Vascular Central Line Catheter: No A/P Assessment and Plan Medical Noncompliance: Patient is refusing all medical care this time to include life-saving medications, physical therapy, occupational therapy, refusing to ambulate. Patient is not allowing medical staff to perform their duties and protect her from harm and prevent her from having significant life-threatening medical complications Discussed with palliative care physician Dr. Riddle, he states that he is familiar with this patient. He indicates that patient may need to have further evaluation for competency since the patient is clearly indicating that she does not have a condition or conditions that have been objectively identified and patient has been counseled extensively on. He indicates that we'll need to get case management and legals involved for appropriate management of this patient. From medical standpoint there is nothing else that medical service can offer due to the patient's noncompliance, unwilling to participate in patient care. We'll continue to defer evaluation and recommendations to psychiatry and case management Bilateral Lower Extremity Weakness, Difficulty w/Ambulation: Subjective. Patient refusing workup and treatment Cervical CT, lumbar CT scans were performed which did not indicate any acute abnormality which would indicate bilateral lower extremity weakness. Patient is refusing PT/OT evaluations Patient refused lumbar puncture for further evaluation. Patient will not undergo MRI study Neurology Dr. Nelson, has evaluated the patient does not have any etiology of the patient's lower extremity weakness. He is recommending angiography of the lumbar spine because of her hypercoagulability state from the recent saddle emboli, however radiologist does not perform any angiography of the spine. Radiologist recommended MRI study of the thoracic and lumbar spine. However, patient was not able to perform MRI study yesterday and refuses to have it done. Neurology indicated that there is nothing else they can offer from a neurological standpoint to contribute to the patient's possible etiologies. He indicated that he will sign off and defer continue management to medical team Subacute Pulmonary Embolism 06/08/16 with Subtherapeutic INR: Patient refusing treatment during previous hospitalization, patient refused TPA, V/Q scan was performed which could not rule out the possibility of emboli Patient refusing Lovenox/Coumadin Patient indicates that she was told that she does not have any blood clots Patient was given copy of recent CTA for confirmation of her blood clot, however, patient states that that is not her It was discussed with the patient extensively that without anticoagulation she is at increased risk of embolic events to include worsening pulmonary emboli, stroke, . Palliative care was consulted for recommendations. Selective Mutism with Paranoid Schizophrenia: chronic, Patient has been evaluated by psychiatry, Psychiatry reconsulted due to the patient refusing medical care. As indicated by psychiatry the patient has full capacity to make her own medical decisions she is alert and orientated. 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 Refusal of speaking with caregivers about her condition. Likely need evaluation for competency. Patient will likely need inpatient psychiatric management Psychiatry did reevaluated the patient however patient would not let psychiatrist geographic analyst or examine her. Psychiatrist referred back to previous notes indicate that patient has at least some degree of capacity. Psychiatrist is recommending that patient be evaluated by ethics committee Candidal intertrigo: under bilateral breasts. Patient refusing Nystatin powder. DVT Prophylaxis: Patient refusing Coumadin/Lovenox Discharge Planning Unable to determine discharge planning this time as patient is refusing all medical treatment, management, therapies. Case management consulted for possible administration evaluation with ethics, legal Steven Mccray Jul 22, 2016 09:40
--- NOTE | 2016-07-22 16:09 | PD.HHIRCNE ---
Patient History Record/History Review Reason for Referral: The patient is a 40 year old right handed female who is well known to me from a prior admission in May of 2016. At that time, she was found on the sidewalk with complaints of chest pain, and was brought to ED where CTA revealed saddle pulmonary embolus with RV dilation and elevated troponin, postural hypotension with dizziness. Thrombus has clearly effected cardiac output. Her medical situation is placed within the context of her neurobehavioral presentation of elective mutism, where she refuses to speak in almost all social situations ( despite apparent normal ability to do so). At that time, Ms. Pan communicated quite effectively by writing down in a notebook answers to questions posed to her, and her answers are clear, concise and demonstrate understanding of the concepts and concerns presented to her. Also noteworthy was that Ms. aPn is homeless and has been so for quite some time. She is obviously educated based on her vocabulary and sentence structure, at least high school if not higher, is unemployed, probably at some time on SSDI, and is single without children. She was referred for baseline neurobehavioral status examination in order to assess her cognitive, behavioral and emotional functioning in light of her clinical presentation, and to facilitate an understanding of her cognitive capacity to make pertinent decisions about her healthcare, including decisions she may make to refuse treatments. At that point in time, based on the neurobehavioral examination, this patient had no neurobehavioral or neurocognitive incapacitating findings. She was at that point considered to be cognitively capable of making decisions of a legal, financial and medical nature. At that point, she demonstrated the requisite ability to appreciate a situation and its likely consequences and she demonstrates the ability to manipulate information rationally. Neurobehavioral examination results revealed a woman of at least average intelligence based on her vocabulary and sentence structure, who is alert, oriented x 4, with normal attention, memory and complex reasoning skills, and who is free from florid psychotic symptoms and who denies suicidal or homicidal ideation or intent. She clearly was able to demonstrate understanding of the medical decisions being offered to her, ask appropriate questions of this examiner and her treating physician and she was clearly able to make decisions based on her understanding. 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 She likely has had psychiatric treatment in the past, but she chose not to report such treatment when asked. Ms. Pan now presents back to the hospital opn 07/01/2016 with chief complaint of bilateral leg weakness. Patient reported the onset of symptoms 4 days prior. She states that it is getting progressively worse. 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 However, she was found to be competent (described above ). The patient's mother was in the ED and confirms the diagnosis of paranoid schizophrenia. The mother reports that "Evan Pan" is not the patient's real name. The mother reports that the patient was in and out of hospitals for a while a number of years ago. However, she ran away from home 9 years ago and the mother has not been able to track her down until recently. The mother's first contact with her daughter in 9 years was yesterday. The mother was aware that the patient had been hospitalized recently but did not know the cause of the hospitalization. The mother has noticed that the patient's legs are weak. She is only able to walk short distances. The patient is able to move her arms and follows some commands. She is not able to move her legs during my examination, also when pressure applied to nailbed she is also not moving her legs. She was able to flex knees during the examination by ED physician. Since her recent admission, the patient has exhibited an abrupt neurobehavioral change from the first admission, such that she is now completely noncompliant with any medical directive, refuses to communicate even with writing her responses, does not answer to the name she initially has given, Evan, will not get out of bed, will not comply with physical therapy instructions, and will not take her medications as requested. Clearly, her neuropsychological functioning, albeit from a psychiatric cause, has deteriorated to a point where she is an unintentional danger to herself through her noncompliance. Because of these changes on balance with my knowledge of this patient prior to this change, she was again referred for neuropsychological evaluation to assist with diagnostic determination and treatment recommendation. Neuropsych Precautions: Unintentional danger to self. Past Surgical/Medical History Past Surgery: No Major surgery in last 100 days: Unknown Hx of Neuro Prob: Yes (Selective mutism, photophobia ) Hx Seizures: No Cephalgia (Headaches): No Hx Migraines: No Hx Head Injury: No Hx Falls: No Hx Cerebrovascular Accident: No Hx Dizziness: No Hx Numbness: No Hx of Musculoskeletal Pro: No Hx of Cardiovascular Prob: No Hx of Respiratory Problem: Yes (Pulmonay Embolism ) Hx Heartburn: No Hx Gastroesophageal Reflux: No Hx Hiatal Hernia: No Hx Ulcer: No Hx Liver Disease: No Hx Gallbladder Disease: No Hx Inflammatory Bowel Disease: No Hx of Problems: No Hx Pelvic Problems: No Hx Genital Problems: Yes (WOUNDS ON LABIA) ?: Not Hx Last Menstrual Period: states no menses Hx Autoimmune Disease: No Hx of Endocrine Problems: No Hx of Eye Probl: Yes (EYES SENSITIVE TO LIGHT, WEARS SUNGLASSES) Hx of Hearing or Ear Problems: No Hx Dental Problems: No Hx Psychiatric Problems: Yes (paranoid schizophrenia ) Hx Anxiety: Yes Hx Blood Dyscrasias: No Hx of MRSA: No Hx of VRE: No Hx of CDIFF: No Hx of Tuberculosis: No Hx Chicken Pox: No Hx of Body/Medical Devices: No Blood Transfusion History Will receive Blood /Blood prod: Yes Hx Blood Transfusions: No Hx Blood Transfusion Reaction: No Mental Status Assessment Orientation: oriented to Place, oriented to Time Mental Status: Impaired: Language/Interactions Observation The patient is alert and oriented to place and time. Of note is that she is not oriented to person, denying that she is the person known as "Evan Pan," but refuses to state (verbally or in written format) who she now believes she is. In terms of attention skills, the patient was unable to consistently remain on task or remember basic and complex instructions. The patient was unable to initiate spontaneous conversation, with the limited interaction that she allowed was performed by writing her responses. Please note that this is an abrupt change from the interactions I have had with this patient in the past , where we have had long conversations. In her present state, the patient appears to posses impaired insight and awareness into her situation and within the limits of this brief evaluation, impaired judgment. Impression Impaired cognitive capacity to make appropriate decisions. Adjustment/Coping Assessment Adjustment/Coping: None: Depression, Anxiety, Pain, Moderate: Apathy, Severe : Awareness, Insight Observation The patients thought content appeared free from suicidal or homicidal ideation , and the patients thought processes were unable to be determined. The patient s mood was guarded, and the affect was blunted. LTG Status: Deferred STG Status: Deferred Team Members: Neuropsychologist Behavior Assessment Agitation: None Treatment Engagement: Minimal Observation Behaviorally, the patient demonstrated no signs of agitation, impulsivity or disinhibition. However, there was evidence of thought dysfunction inconsistent with her past clinical presentation, suggesting an exacerbation of her underlying psychotic disorder. LTG - Status: Deferred STG Status: Deferred Team Members: Neuropsychologist Diagnosis/Discharge Plan Impression This 40 year old woman who is well known to me from her previous medical hospitalization for untreated PE, who was at that time was able to become a partner in her own healthcare when provided explanation, now presents with similar significant health concerns, but now exhibits increased paranoid ideation and a refusal to accept medical care for these significant health concerns. Her neurobehavioral change from her first hospitalization to her present hospitalization is striking such that she not only would not acknowledge the prior healthcare relationship she had with this examiner but she would not acknowledge that she is the same individual who was treated for these conditions. It is my clinical opinion that this patient's prior underlying major psychiatric disorder, paranoid schizophrenia, is exacerbated and now interferes from a neurocognitive perspective with her ability to make rational decisions of a legal, financial and medical nature. At this point, she is in my opinion demonstrated the IMPAIRED ability to appreciate a situation and its likely consequences and she demonstrates the IMPAIRED ability to manipulate information rationally. Diagnosis: (1) Paranoid schizophrenia, chronic condition with acute exacerbation Status: Acute (2) Elective mutism Status: Chronic Maximizing acute care outcome 1. With the present acute exacerbation of her psychiatric disorder, this patient is NOT considered to be cognitively capable of making decisions of a legal, financial and medical nature. She demonstrates the IMPAIRED ability to appreciate a situation and its likely consequences and she demonstrates the IMPAIRED ability to manipulate information rationally. In her present state because of her acute psychiatric disorder, it is my opinion that she is an unintentional danger to herself by her refusal to allow treatment of her medical conditions. 2. In light of her cognitive incapacity, it would be my recommendation that she would require psychiatric treatment in order to facilitate a stabilization of her acute psychiatric disorder which would allow her to return to a point where she would again be able to be an engaged and active and knowledgeable participant with her medical care. Discharge Planning Anticipated Problems Failure to comply with medical directives will place this patient in a situation where her medical condition will result in untoward consequences to her health. Treatment Plan This clinician will continue to follow with you throughout the course of this patients hospital treatment, and I will be available to meet with the patient s family/support system to facilitate their understanding and the ongoing care of their family member. The goals of neuropsychological intervention shall be both educational and supportive to the family/support system as is deemed clinically appropriate. I will also be available to facilitate her compliance with medical directives if she so becomes compliant. Discharge Needs To be determined. Session Attendance Variance 45 minutes, including record review, patient interview and evaluation, discussion with staff and report write up. Thank you Thank you for the opportunity to assist in this patients care. Rosalio Jacinto, Ph.D., ABPP Board Certified in Clinical Neuropsychology [place] [employer] [place] Licensed Psychologist #[id number] Rosalio Jacinto PhD Jul 22, 2016 16:09
[2016-07-22 20:00] VITALS: BP 106/65; PULSE 72; RESP 21; TEMP 98.8; O2SAT 100
[2016-07-23 08:00] VITALS: BP 89/77; PULSE 64; RESP 20; TEMP 97; O2SAT 100
[2016-07-23] MEDS: NYSTATIN 100,000 U/GM PWD 15 GM BTL TOPICAL SCH ×2 (08:49→21:52)
[2016-07-23] MEDS: SODIUM CHLORIDE 0.9% FLUSH 10 ML FLUSH IV FLUSH SCH ×2 (08:49→21:00)
--- NOTE | 2016-07-23 11:28 | HHI.PR ---
Subjective Remarks Patient seen and examined today for follow-up on lower extremities weakness, noncompliance. Patient was seen with MEAT GRINDER in the room. Patient pretended to ignore that is in the room, would not answer any questions or respond to conversation. Objective Vitals Vital Signs Date Time Temp Pulse Resp B/P Pulse Ox O2 Delivery O2 Flow Rate FiO2 07/23/16 08:00 97.0 64 20 89/77 100 07/22/16 20:00 98.8 72 21 106/65 100 I/O 07/22/16 07/22/16 07/22/16 07/23/16 07/23/16 07/23/16 07:00 15:00 23:00 07:00 15:00 23:00 Intake Total 100 ml 720 ml 120 ml Balance 100 ml 720 ml 120 ml Intake Oral 100 ml 720 ml 120 ml # Voids 2 3 # Bowel Movements 2 3 Objective Remarks GENERAL: Well-developed, well-nourished, in no acute distress. Urinary Catheter: No Vascular Central Line Catheter: No A/P Assessment and Plan Medical Noncompliance: Patient is refusing all medical care this time to include life-saving medications, physical therapy, occupational therapy, refusing to ambulate. Patient is not allowing medical staff to perform their duties and protect her from harm and prevent her from having significant life-threatening medical complications Discussed with palliative care physician Dr. Riddle, he states that he is familiar with this patient. He indicates that patient may need to have further evaluation for competency since the patient is clearly indicating that she does not have a condition or conditions that have been objectively identified and patient has been counseled extensively on. He indicates that we'll need to get case management and legals involved for appropriate management of this patient. From medical standpoint there is nothing else that medical service can offer due to the patient's noncompliance, unwilling to participate in patient care. We'll continue to defer evaluation and recommendations to psychiatry and case management Discuss with neuro psychiatrist, he indicated that he evaluated patient states that patient has had a significant change in her psychiatric illness and personalities/attitude. He does not feel that the patient is capable of making her own decisions and requests psychiatry reevaluated the patient to start treating the patient for her underlying psychiatric illness Bilateral Lower Extremity Weakness, Difficulty w/Ambulation: Subjective. Patient refusing workup and treatment Cervical CT, lumbar CT scans were performed which did not indicate any acute abnormality which would indicate bilateral lower extremity weakness. Patient is refusing PT/OT evaluations Patient refused lumbar puncture for further evaluation. Patient will not undergo MRI study Neurology Dr. Nelson, has evaluated the patient does not have any etiology of the patient's lower extremity weakness. He is recommending angiography of the lumbar spine because of her hypercoagulability state from the recent saddle emboli, however radiologist does not perform any angiography of the spine. Radiologist recommended MRI study of the thoracic and lumbar spine. However, patient was not able to perform MRI study yesterday and refuses to have it done. Neurology indicated that there is nothing else they can offer from a neurological standpoint to contribute to the patient's possible etiologies. He indicated that he will sign off and defer continue management to medical team Subacute Pulmonary Embolism 06/08/16 with Subtherapeutic INR: Patient refusing treatment during previous hospitalization, patient refused TPA, V/Q scan was performed which could not rule out the possibility of emboli Patient refusing Lovenox/Coumadin Patient indicates that she was told that she does not have any blood clots Patient was given copy of recent CTA for confirmation of her blood clot, however, patient states that that is not her It was discussed with the patient extensively that without anticoagulation she is at increased risk of embolic events to include worsening pulmonary emboli, stroke, . Palliative care was consulted for recommendations. Selective Mutism with Paranoid Schizophrenia: chronic, Patient has been evaluated by psychiatry, Psychiatry reconsulted due to the patient refusing medical care. As indicated by psychiatry the patient has full capacity to make her own medical decisions she is alert and orientated. 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 Refusal of speaking with caregivers about her condition. Likely need evaluation for competency. Patient will likely need inpatient psychiatric management Psychiatry did reevaluated the patient however patient would not let psychiatrist sustainable products marketing manager or examine her. Psychiatrist referred back to previous notes indicate that patient has at least some degree of capacity. Psychiatrist is recommending that patient be evaluated by ethics committee Candidal intertrigo: under bilateral breasts. Patient refusing Nystatin powder. DVT Prophylaxis: Patient refusing Coumadin/Lovenox Discharge Planning Unable to determine discharge planning this time as patient is refusing all medical treatment, management, therapies. Case management consulted for possible administration evaluation with ethics, legal Steven Mccray Jul 23, 2016 11:28
--- NOTE | 2016-07-23 12:35 | HHI.PYPN ---
Subjective Remarks Patient seen in her room with RN. Patient sitting up in bed with dark sunglasses on. When he attempted to excuse myself she reacted very negative way waving her arms and turning his head from side to side. As I attempted to explain my purpose of visit she remains selectively mute, riding long responses in her notebook that are somewhat rambling in her overall fairly well goal oriented. She refused to answer any questions at all about medication treatment or prior mental health issues. I have also reviewed Dr. Cee assessment from 07/[address] Friend progress note from 07/20. I have also reviewed Dr. Beasley's notes from 07/02 and 07/07 that appears to be some significant deterioration in the interval. I do agree with Dr. Jacinto. This point if the patient does not have the capacity to make appropriate judgments concerning her treatment. Thus I feel the appointment of a health care surrogate would be appropriate. This person can work with psychiatric consult and discuss medication management. Considering the hospital issues involved with this I would not initiate treatment until the health care surrogate has been identified appointed and become involved with the treatment team. Dr. Beasley will be out of town through next week. Dr. Jerson Naranjo will be covering his service starting Tuesday 07/25 Review of Systems Except as stated in HPI: all other systems reviewed are Neg Objective Alert: Yes [place]: Person, Place, Date, Situation Mood: Calm, Oppositional, Other (irritable) Affect: Appropriate, Other (slight increased range and intensity) Memory Intact: Immediate, Recent, Remote Hallucinations: Other (she denies) Delusions: No Delusion Type: Other (none elicited) Suicidal: Ideation (she denies) Homicidal: Ideation (she denies) Insight/Judgment Very poor Vitals/IOs Vital Signs Date Time Temp Pulse Resp B/P Pulse Ox O2 Delivery O2 Flow Rate FiO2 07/23/16 08:00 97.0 64 20 89/77 100 Intake and Output 07/22/16 07/22/16 07/23/16 08:00 16:00 00:00 Intake Total 100 ml 720 ml Balance 100 ml 720 ml Assessment & Plan Problem List: (1) Encounter for psychiatric assessment ICD Code: Z76.89 (2) Paranoid schizophrenia, chronic condition with acute exacerbation ICD Code: F20.0 Assessment & Plan Estimated LOS: days patient showing changes in her mental status exam as evidenced by the neuropsychiatric assessment and by my evaluation. Strong recommendation for pulmonology health care surrogate. Follow-up next week with psychiatrist avionics system engineer for consultations Justification for Cont. Inpt. This time patient deteriorate in a less restrictive setting Discharge Planning To be determined Skip Montgomery MD Jul 23, 2016 12:35
[2016-07-23 20:00] VITALS: BP 104/64; PULSE 65; RESP 16; TEMP 97.4; O2SAT 99
[2016-07-24 08:00] VITALS: BP 142/93; PULSE 78; RESP 20; TEMP 97; O2SAT 100
[2016-07-24] MEDS: SODIUM CHLORIDE 0.9% FLUSH 10 ML FLUSH IV FLUSH SCH ×2 (08:48→21:00)
[2016-07-24] MEDS: NYSTATIN 100,000 U/GM PWD 15 GM BTL TOPICAL SCH ×2 (08:49→21:00)
--- NOTE | 2016-07-24 11:59 | HHI.PR ---
Subjective Remarks Patient seen and examined today for follow-up on medical noncompliance, lower extremity weakness. Patient still not participate in evaluation. Patient refuses to speak or write anything at this time. Patient lying in bed, patient usually sits in bed style. Apparently she is able to move her legs Objective Vitals Vital Signs Date Time Temp Pulse Resp B/P Pulse Ox O2 Delivery O2 Flow Rate FiO2 07/24/16 08:00 97.0 78 20 142/93 100 07/23/16 20:00 97.4 65 16 104/64 99 I/O 07/23/16 07/23/16 07/23/16 07/24/16 07/24/16 07/24/16 07:00 15:00 23:00 07:00 15:00 23:00 Intake Total 120 ml 480 ml 680 ml Balance 120 ml 480 ml 680 ml Intake Oral 120 ml 480 ml 680 ml # Voids 3 1 2 # Bowel Movements 3 1 1 Objective Remarks GENERAL: Well-developed, well-nourished, in no acute distress. Urinary Catheter: No Vascular Central Line Catheter: No A/P Assessment and Plan Medical Noncompliance: Patient is refusing all medical care this time to include life-saving medications, physical therapy, occupational therapy, refusing to ambulate. Patient is not allowing medical staff to perform their duties and protect her from harm and prevent her from having significant life-threatening medical complications Discussed with palliative care physician Dr. Riddle, he states that he is familiar with this patient. He indicates that patient may need to have further evaluation for competency since the patient is clearly indicating that she does not have a condition or conditions that have been objectively identified and patient has been counseled extensively on. He indicates that we'll need to get case management and legals involved for appropriate management of this patient. From medical standpoint there is nothing else that medical service can offer due to the patient's noncompliance, unwilling to participate in patient care. We'll continue to defer evaluation and recommendations to psychiatry and case management Discuss with neuro psychiatrist, he indicated that he evaluated patient states that patient has had a significant change in her psychiatric illness and personalities/attitude. He does not feel that the patient is capable of making her own decisions and requests psychiatry reevaluated the patient to start treating the patient for her underlying psychiatric illness Psychiatry reevaluated the patient and does agree with neuro psychologist. At this point it was indicated patient does not have capacity make appropriate judgments concerning her treatment. He feels that appointment of a healthcare surrogate would be appropriate. Bilateral Lower Extremity Weakness, Difficulty w/Ambulation: Subjective. Patient refusing workup and treatment Cervical CT, lumbar CT scans were performed which did not indicate any acute abnormality which would indicate bilateral lower extremity weakness. Patient is refusing PT/OT evaluations Patient refused lumbar puncture for further evaluation. Patient will not undergo MRI study Neurology Dr. Nelson, has evaluated the patient does not have any etiology of the patient's lower extremity weakness. He is recommending angiography of the lumbar spine because of her hypercoagulability state from the recent saddle emboli, however radiologist does not perform any angiography of the spine. Radiologist recommended MRI study of the thoracic and lumbar spine. However, patient was not able to perform MRI study yesterday and refuses to have it done. Neurology indicated that there is nothing else they can offer from a neurological standpoint to contribute to the patient's possible etiologies. He indicated that he will sign off and defer continue management to medical team Subacute Pulmonary Embolism 06/08/16 with Subtherapeutic INR: Patient refusing treatment during previous hospitalization, patient refused TPA, V/Q scan was performed which could not rule out the possibility of emboli Patient refusing Lovenox/Coumadin Patient indicates that she was told that she does not have any blood clots Patient was given copy of recent CTA for confirmation of her blood clot, however, patient states that that is not her It was discussed with the patient extensively that without anticoagulation she is at increased risk of embolic events to include worsening pulmonary emboli, stroke, . Palliative care was consulted for recommendations. Selective Mutism with Paranoid Schizophrenia: chronic, Patient has been evaluated by psychiatry, Psychiatry reconsulted due to the patient refusing medical care. As indicated by psychiatry the patient has full capacity to make her own medical decisions she is alert and orientated. 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 Refusal of speaking with caregivers about her condition. Likely need evaluation for competency. Patient will likely need inpatient psychiatric management Psychiatry did reevaluated the patient however patient would not let psychiatrist digital advertising specialist or examine her. Psychiatrist referred back to previous notes indicate that patient has at least some degree of capacity. Psychiatrist is recommending that patient be evaluated by ethics committee Candidal intertrigo: under bilateral breasts. Patient refusing Nystatin powder. DVT Prophylaxis: Patient refusing Coumadin/Lovenox Discharge Planning Unable to determine discharge planning this time as patient is refusing all medical treatment, management, therapies. Case management consulted for possible administration evaluation with ethics, legal Steven Mccray Jul 24, 2016 11:59
[2016-07-24 20:00] VITALS: BP 116/67; PULSE 66; RESP 20; TEMP 98.3; O2SAT 98
[2016-07-25] MEDS: NYSTATIN 100,000 U/GM PWD 15 GM BTL TOPICAL SCH ×2 (09:00→21:00)
[2016-07-25] MEDS: SODIUM CHLORIDE 0.9% FLUSH 10 ML FLUSH IV FLUSH SCH ×2 (09:00→21:00)
[2016-07-25 09:06] VITALS: BP 106/65; PULSE 65; RESP 19; TEMP 96.8; O2SAT 97
--- NOTE | 2016-07-25 12:03 | HHI.PR ---
Subjective Remarks Patient seen and examined today for follow-up on medical noncompliance, lower extremity weakness. Patient was seen with GASATERIA ATTENDANT present in the room. Patient still nonverbal. He did shake her head and responds to questions. She indicates that she has no new problems and there is nothing we can do to help her. Objective Vitals Vital Signs Date Time Temp Pulse Resp B/P Pulse Ox O2 Delivery O2 Flow Rate FiO2 07/25/16 09:06 96.8 65 19 106/65 97 07/24/16 20:00 98.3 66 20 116/67 98 I/O 07/24/16 07/24/16 07/24/16 07/25/16 07/25/16 07/25/16 07:00 15:00 23:00 07:00 15:00 23:00 Intake Total 680 ml 480 ml 480 ml 200 ml Balance 680 ml 480 ml 480 ml 200 ml Intake Oral 680 ml 480 ml 480 ml 200 ml # Voids 2 1 2 # Bowel Movements 1 1 1 Objective Remarks GENERAL: Well-developed, well-nourished, in no acute distress. Urinary Catheter: No Vascular Central Line Catheter: No A/P Assessment and Plan Medical Noncompliance: Patient is refusing all medical care this time to include life-saving medications, physical therapy, occupational therapy, refusing to ambulate. Patient is not allowing medical staff to perform their duties and protect her from harm and prevent her from having significant life-threatening medical complications Discussed with palliative care physician Dr. Riddle, he states that he is familiar with this patient. He indicates that patient may need to have further evaluation for competency since the patient is clearly indicating that she does not have a condition or conditions that have been objectively identified and patient has been counseled extensively on. He indicates that we'll need to get case management and legals involved for appropriate management of this patient. From medical standpoint there is nothing else that medical service can offer due to the patient's noncompliance, unwilling to participate in patient care. We'll continue to defer evaluation and recommendations to psychiatry and case management Discuss with neuro psychiatrist, he indicated that he evaluated patient states that patient has had a significant change in her psychiatric illness and personalities/attitude. He does not feel that the patient is capable of making her own decisions and requests psychiatry reevaluated the patient to start treating the patient for her underlying psychiatric illness Psychiatry reevaluated the patient and does agree with neuro psychologist. At this point it was indicated patient does not have capacity make appropriate judgments concerning her treatment. He feels that appointment of a healthcare surrogate would be appropriate. Bilateral Lower Extremity Weakness, Difficulty w/Ambulation: Subjective. Patient refusing workup and treatment Cervical CT, lumbar CT scans were performed which did not indicate any acute abnormality which would indicate bilateral lower extremity weakness. Patient is refusing PT/OT evaluations Patient refused lumbar puncture for further evaluation. Patient will not undergo MRI study Neurology Dr. Nelson, has evaluated the patient does not have any etiology of the patient's lower extremity weakness. He is recommending angiography of the lumbar spine because of her hypercoagulability state from the recent saddle emboli, however radiologist does not perform any angiography of the spine. Radiologist recommended MRI study of the thoracic and lumbar spine. However, patient was not able to perform MRI study yesterday and refuses to have it done. Neurology indicated that there is nothing else they can offer from a neurological standpoint to contribute to the patient's possible etiologies. He indicated that he will sign off and defer continue management to medical team Subacute Pulmonary Embolism 06/08/16 with Subtherapeutic INR: Patient refusing treatment during previous hospitalization, patient refused TPA, V/Q scan was performed which could not rule out the possibility of emboli Patient refusing Lovenox/Coumadin Patient indicates that she was told that she does not have any blood clots Patient was given copy of recent CTA for confirmation of her blood clot, however, patient states that that is not her It was discussed with the patient extensively that without anticoagulation she is at increased risk of embolic events to include worsening pulmonary emboli, stroke, . Palliative care was consulted for recommendations. Selective Mutism with Paranoid Schizophrenia: chronic, Patient has been evaluated by psychiatry, Psychiatry reconsulted due to the patient refusing medical care. As indicated by psychiatry the patient has full capacity to make her own medical decisions she is alert and orientated. 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 Refusal of speaking with caregivers about her condition. Likely need evaluation for competency. Patient will likely need inpatient psychiatric management Psychiatry did reevaluated the patient however patient would not let psychiatrist transaction advisory services manager or examine her. Psychiatrist referred back to previous notes indicate that patient has at least some degree of capacity. Psychiatrist is recommending that patient be evaluated by ethics committee Candidal intertrigo: under bilateral breasts. Patient refusing Nystatin powder. DVT Prophylaxis: Patient refusing Coumadin/Lovenox Discharge Planning Unable to determine discharge planning this time as patient is refusing all medical treatment, management, therapies. Case management consulted for possible administration evaluation with ethics, legal Steven Mccray Jul 25, 2016 12:03
[2016-07-25 20:00] VITALS: BP 95/72; PULSE 59; RESP 21; TEMP 97.3; O2SAT 100
[2016-07-26] MEDS ORDERED: ACETAMINOPHEN 325 MG TAB PO PRN (06:30)
[2016-07-26] MEDS ORDERED: TEMAZEPAM 15 MG CAP PO PRN (06:30)
[2016-07-26] MEDS ORDERED: MAGNESIUM HYDROXIDE SUSP 30 ML CUP PO PRN (06:30)
[2016-07-26] MEDS ORDERED: SODIUM CHLORIDE 0.9% FLUSH 10 ML FLUSH IV FLUSH PRN ×2 (06:30)
[2016-07-26] MEDS ORDERED: SODIUM CHLORIDE 0.9% FLUSH 10 ML FLUSH IVF PRN (06:30)
[2016-07-26] MEDS ORDERED: ONDANSETRON HCL 4 MG/2 ML VIAL IVP PRN (06:30)
[2016-07-26 08:00] VITALS: BP 130/73; PULSE 66; RESP 18; TEMP 97.9; O2SAT 66
[2016-07-26] MEDS ORDERED: SODIUM CHLORIDE 0.9% FLUSH 10 ML FLUSH IV FLUSH SCH (09:00)
[2016-07-26] MEDS: NYSTATIN 100,000 U/GM PWD 15 GM BTL TOPICAL SCH ×2 (09:00→21:00)
[2016-07-26] MEDS: SODIUM CHLORIDE 0.9% FLUSH 10 ML FLUSH IV FLUSH SCH ×2 (09:00→21:00)
--- NOTE | 2016-07-26 10:12 | HHI.PR ---
Subjective Remarks Follow-up for bilateral lower extremity weakness, medication non-compliance for PE. No acute complaints. Objective Vitals Vital Signs Date Time Temp Pulse Resp B/P Pulse Ox O2 Delivery O2 Flow Rate FiO2 07/26/16 08:00 97.9 66 18 130/73 66 07/25/16 20:00 97.3 59 21 95/72 100 I/O 07/25/16 07/25/16 07/25/16 07/26/16 07/26/16 07/26/16 07:00 15:00 23:00 07:00 15:00 23:00 Intake Total 480 ml 520 ml 420 ml 480 ml Balance 480 ml 520 ml 420 ml 480 ml Intake Oral 480 ml 520 ml 420 ml 480 ml # Voids 2 5 2 # Bowel Movements 1 2 2 Objective Remarks GENERAL: Well-developed patient in apparent distress. CARDIOVASCULAR: Normal rate and regular rhythm. RESPIRATORY: No accessory muscle use. CTAB. GASTROINTESTINAL: Abdomen soft, non-tender, non-distended. NEUROLOGICAL: Awake and alert. PSYCHIATRIC: Normal affect, but wears sunglasses. Urinary Catheter: No Vascular Central Line Catheter: No A/P Assessment and Plan Bilateral Lower Extremity Weakness, Difficulty w/Ambulation: Subjective. Cervical CT, lumbar CT scans were performed which did not indicate any acute abnormality which would indicate bilateral lower extremity weakness. Patient is refusing PT/OT evaluations Patient refused lumbar puncture for further evaluation. Patient will not undergo MRI study Neurology Dr. Nelson, has evaluated the patient does not have any etiology of the patient's lower extremity weakness. He is recommending angiography of the lumbar spine because of her hypercoagulability state from the recent saddle emboli, however radiologist does not perform any angiography of the spine. Radiologist recommended MRI study of the thoracic and lumbar spine. However, patient was not able to perform MRI study and refuses to have it done. Neurology indicated that there is nothing else they can offer from a neurological standpoint to contribute to the patient's possible etiologies. He indicated that he will sign off and defer continued management to medical team 07/13: Nurse states that patient is nonambulatory and patient has to lift her legs with her hands in order to move them. 07/05 PT note states patient refuses PT. 07/14: PT tried to reevaluate patient but patient again refuses therapy. She writes that if Dr. Nelson wants more tests she would comply. Subacute Pulmonary Embolism 06/08/16 with Subtherapeutic INR: During previous hospitalization, patient refused TPA. V/Q scan was performed which could not rule out the possibility of emboli Patient refusing Lovenox/Coumadin at this time Patient indicates that she was told that she does not have any blood clots Patient was given copy of recent CTA for confirmation of her blood clot Colleague discussed with the patient extensively that without anticoagulation she is at increased risk of embolic events to include worsening pulmonary emboli , stroke, . Palliative care was consulted for recommendations. Anticoagulation discontinued due to patient refusal; will restart if patient chooses to comply. Selective Mutism with Paranoid Schizophrenia: chronic, Neuropsychologist Dr. Jacinto evaluated the patient on 07/22 and states she is impaired cognitively and does not feel that the patient is capable of making her own decisions and requested psychiatry reevaluated the patient to start treating the patient for her underlying psychiatric illness. Psychiatry reevaluated the patient on 07/23 and agrees with neuropsychologist. Indicates patient does not have capacity to make appropriate judgments concerning her treatment. Patient will need healthcare surrogate appointed. Medical Noncompliance: Patient is refusing all medical care this time to include life-saving medications, physical therapy, occupational therapy, refusing to ambulate. Patient is not allowing medical staff to perform their duties and protect her from harm and prevent her from having significant life-threatening medical complications Colleague discussed with palliative care physician Dr. Riddle, he states that he is familiar with this patient. He indicates that patient may need to have further evaluation for competency since the patient is clearly indicating that she does not have a condition or conditions that have been objectively identified and patient has been counseled extensively on. He indicates that we' ll need to get case management and legal involved for appropriate management of this patient. Per palliative care patient refused to discuss living will, refused to complete health care surrogate. See above. Candidal intertrigo: under bilateral breasts. Nystatin powder. DVT Prophylaxis: Patient refusing Coumadin/Lovenox Discharge Planning CM will work on obtaining healthcare surrogate for patient. Sneha Choi Jul 26, 2016 10:12 this patient. Per palliative care patient refused to discuss living will, refused to complete health care surrogate. Candidal intertrigo: under bilateral breasts. Nystatin powder. DVT Prophylaxis: Patient refusing Coumadin/Lovenox Sneha Choi Jul 26, 2016 10:12
[2016-07-26 20:15] VITALS: BP 100/63; PULSE 60; RESP 19; TEMP 98.4; O2SAT 100
[2016-07-27 08:00] VITALS: BP 108/66; PULSE 62; RESP 18; TEMP 97.9; O2SAT 99
[2016-07-27] MEDS: SODIUM CHLORIDE 0.9% FLUSH 10 ML FLUSH IV FLUSH SCH ×2 (09:00→21:00)
[2016-07-27] MEDS: NYSTATIN 100,000 U/GM PWD 15 GM BTL TOPICAL SCH ×2 (09:43→21:00)
--- NOTE | 2016-07-27 13:31 | HHI.PR ---
Subjective Remarks Follow-up for bilateral lower extremity weakness, medication non-compliance for PE. Does not speak. Objective Vitals Vital Signs Date Time Temp Pulse Resp B/P Pulse Ox O2 Delivery O2 Flow Rate FiO2 07/27/16 08:00 97.9 62 18 108/66 99 07/26/16 20:15 98.4 60 19 100/63 100 I/O 07/26/16 07/26/16 07/26/16 07/27/16 07/27/16 07/27/16 07:00 15:00 23:00 07:00 15:00 23:00 Intake Total 480 ml 700 ml 1200 ml 650 ml Output Total 1 ml Balance 480 ml 699 ml 1200 ml 650 ml Intake Oral 480 ml 700 ml 1200 ml 650 ml Stool Total 1 ml # Voids 2 2 4 2 # Bowel Movements 2 1 Objective Remarks GENERAL: Well-developed patient in apparent distress. CARDIOVASCULAR: Normal rate and regular rhythm. RESPIRATORY: No accessory muscle use. CTAB. GASTROINTESTINAL: Abdomen soft, non-tender, non-distended. NEUROLOGICAL: Awake and alert. PSYCHIATRIC: Wears sunglasses at all times. Mute. Urinary Catheter: No Vascular Central Line Catheter: No A/P Assessment and Plan Bilateral Lower Extremity Weakness, Difficulty w/Ambulation: Subjective. Cervical CT, lumbar CT scans were performed which did not indicate any acute abnormality which would indicate bilateral lower extremity weakness. Patient is refusing PT/OT evaluations Patient refused lumbar puncture for further evaluation. Patient will not undergo MRI study Neurology Dr. Nelson, has evaluated the patient does not have any etiology of the patient's lower extremity weakness. He is recommending angiography of the lumbar spine because of her hypercoagulability state from the recent saddle emboli, however radiologist does not perform any angiography of the spine. Radiologist recommended MRI study of the thoracic and lumbar spine. However, patient was not able to perform MRI study and refuses to have it done. Neurology indicated that there is nothing else they can offer from a neurological standpoint to contribute to the patient's possible etiologies. He indicated that he will sign off and defer continued management to medical team 07/13: Nurse states that patient is nonambulatory and patient has to lift her legs with her hands in order to move them. 07/05 PT note states patient refuses PT. 07/14: PT tried to reevaluate patient but patient again refuses therapy. She writes that if Dr. Nelson wants more tests she would comply. Subacute Pulmonary Embolism 06/08/16 with Subtherapeutic INR: During previous hospitalization, patient refused TPA. V/Q scan was performed which could not rule out the possibility of emboli Patient refusing Lovenox/Coumadin at this time Patient indicates that she was told that she does not have any blood clots Patient was given copy of recent CTA for confirmation of her blood clot Colleague discussed with the patient extensively that without anticoagulation she is at increased risk of embolic events to include worsening pulmonary emboli , stroke, . Palliative care was consulted for recommendations. Anticoagulation discontinued due to patient refusal; will restart if patient chooses to comply. Selective Mutism with Paranoid Schizophrenia: chronic, Neuropsychologist Dr. Jacinto evaluated the patient on 07/22 and states she is impaired cognitively and does not feel that the patient is capable of making her own decisions and requested psychiatry reevaluated the patient to start treating the patient for her underlying psychiatric illness. Psychiatry reevaluated the patient on 07/23 and agrees with neuropsychologist. Indicates patient does not have capacity to make appropriate judgments concerning her treatment. Patient will need healthcare surrogate appointed. Medical Noncompliance: Patient is refusing all medical care this time to include life-saving medications, physical therapy, occupational therapy, refusing to ambulate. Patient is not allowing medical staff to perform their duties and protect her from harm and prevent her from having significant life-threatening medical complications Colleague discussed with palliative care physician Dr. Riddle, he states that he is familiar with this patient. He indicates that patient may need to have further evaluation for competency since the patient is clearly indicating that she does not have a condition or conditions that have been objectively identified and patient has been counseled extensively on. He indicates that we' ll need to get case management and legal involved for appropriate management of this patient. Per palliative care patient refused to discuss living will, refused to complete health care surrogate. See above. Candidal intertrigo: under bilateral breasts. Nystatin powder. DVT Prophylaxis: Patient refusing Coumadin/Lovenox Discharge Planning CM will work on obtaining healthcare surrogate for patient. Sneha Choi Jul 27, 2016 13:31
[2016-07-27 20:45] VITALS: BP 117/73; PULSE 59; RESP 16; TEMP 98.8; O2SAT 98
[2016-07-28 08:00] VITALS: BP 119/72; PULSE 56; RESP 18; TEMP 97.2; O2SAT 100
[2016-07-28] MEDS: NYSTATIN 100,000 U/GM PWD 15 GM BTL TOPICAL SCH ×2 (08:33→21:20)
[2016-07-28] MEDS: SODIUM CHLORIDE 0.9% FLUSH 10 ML FLUSH IV FLUSH SCH ×2 (08:33→21:00)
--- NOTE | 2016-07-28 09:39 | HHI.PR ---
Subjective Remarks Follow-up for bilateral lower extremity weakness, medication non-compliance for PE. Does not speak. Objective Vitals Vital Signs Date Time Temp Pulse Resp B/P Pulse Ox O2 Delivery O2 Flow Rate FiO2 07/28/16 08:00 97.2 56 18 119/72 100 07/27/16 20:45 98.8 59 16 117/73 98 I/O 07/27/16 07/27/16 07/27/16 07/28/16 07/28/16 07/28/16 06:59 14:59 22:59 06:59 14:59 22:59 Intake Total 650 ml 1250 ml Balance 650 ml 1250 ml Intake Oral 650 ml 1250 ml # Voids 2 1 # Bowel Movements 0 Objective Remarks GENERAL: Well-developed patient in apparent distress. CARDIOVASCULAR: Normal rate and regular rhythm. RESPIRATORY: No accessory muscle use. CTAB. GASTROINTESTINAL: Abdomen soft, non-tender, non-distended. NEUROLOGICAL: Awake and alert. PSYCHIATRIC: Wears sunglasses at all times. Mute. Urinary Catheter: No Vascular Central Line Catheter: No A/P Assessment and Plan Bilateral Lower Extremity Weakness, Difficulty w/Ambulation: Subjective. Cervical CT, lumbar CT scans were performed which did not indicate any acute abnormality which would indicate bilateral lower extremity weakness. Patient is refusing PT/OT evaluations Patient refused lumbar puncture for further evaluation. Patient will not undergo MRI study Neurology Dr. Nelson, has evaluated the patient does not have any etiology of the patient's lower extremity weakness. He is recommending angiography of the lumbar spine because of her hypercoagulability state from the recent saddle emboli, however radiologist does not perform any angiography of the spine. Radiologist recommended MRI study of the thoracic and lumbar spine. However, patient was not able to perform MRI study and refuses to have it done. Neurology indicated that there is nothing else they can offer from a neurological standpoint to contribute to the patient's possible etiologies. He indicated that he will sign off and defer continued management to medical team 07/13: Nurse states that patient is nonambulatory and patient has to lift her legs with her hands in order to move them. 07/05 PT note states patient refuses PT. 07/14: PT tried to reevaluate patient but patient again refuses therapy. She writes that if Dr. Nelson wants more tests she would comply. Subacute Pulmonary Embolism 06/08/16 with Subtherapeutic INR: During previous hospitalization, patient refused TPA. V/Q scan was performed which could not rule out the possibility of emboli Patient refusing Lovenox/Coumadin at this time Patient indicates that she was told that she does not have any blood clots Patient was given copy of recent CTA for confirmation of her blood clot Colleague discussed with the patient extensively that without anticoagulation she is at increased risk of embolic events to include worsening pulmonary emboli , stroke, . Palliative care was consulted for recommendations. Anticoagulation discontinued due to patient refusal; will restart if patient chooses to comply. Selective Mutism with Paranoid Schizophrenia: chronic, Neuropsychologist Dr. Jacinto evaluated the patient on 07/22 and states she is impaired cognitively and does not feel that the patient is capable of making her own decisions and requested psychiatry reevaluated the patient to start treating the patient for her underlying psychiatric illness. Psychiatry reevaluated the patient on 07/23 and agrees with neuropsychologist. Indicates patient does not have capacity to make appropriate judgments concerning her treatment. Patient will need healthcare surrogate appointed. Medical Noncompliance: Patient is refusing all medical care this time to include life-saving medications, physical therapy, occupational therapy, refusing to ambulate. Patient is not allowing medical staff to perform their duties and protect her from harm and prevent her from having significant life-threatening medical complications Colleague discussed with palliative care physician Dr. Riddle, he states that he is familiar with this patient. He indicates that patient may need to have further evaluation for competency since the patient is clearly indicating that she does not have a condition or conditions that have been objectively identified and patient has been counseled extensively on. He indicates that we' ll need to get case management and legal involved for appropriate management of this patient. Per palliative care patient refused to discuss living will, refused to complete health care surrogate. See above. Candidal intertrigo: under bilateral breasts. Nystatin powder. DVT Prophylaxis: Patient refusing Coumadin/Lovenox Discharge Planning CM will work on obtaining healthcare surrogate for patient. Sneha Choi Jul 28, 2016 09:39
[2016-07-28 20:00] VITALS: BP 108/75; PULSE 64; RESP 20; TEMP 97.1; O2SAT 99
[2016-07-29] MEDS: SODIUM CHLORIDE 0.9% FLUSH 10 ML FLUSH IV FLUSH SCH ×2 (08:31→21:00)
[2016-07-29] MEDS: NYSTATIN 100,000 U/GM PWD 15 GM BTL TOPICAL SCH ×2 (08:32→21:37)
[2016-07-29 09:59] VITALS: BP 98/69; PULSE 54; RESP 15; TEMP 97.1; O2SAT 100
--- NOTE | 2016-07-29 12:04 | HHI.PR ---
Subjective Remarks Follow-up for bilateral lower extremity weakness, medication non-compliance for PE. Does not speak. Objective Vitals Vital Signs Date Time Temp Pulse Resp B/P Pulse Ox O2 Delivery O2 Flow Rate FiO2 07/29/16 09:59 97.1 54 15 98/69 100 07/28/16 20:00 97.1 64 20 108/75 99 I/O 07/28/16 07/28/16 07/28/16 07/29/16 07/29/16 07/29/16 07:00 15:00 23:00 07:00 15:00 23:00 Intake Total 950 ml 480 ml 480 ml Balance 950 ml 480 ml 480 ml Intake Oral 950 ml 480 ml 480 ml # Voids 1 2 # Bowel Movements 1 0 Objective Remarks GENERAL: Well-developed patient in apparent distress. CARDIOVASCULAR: Normal rate and regular rhythm. RESPIRATORY: No accessory muscle use. CTAB. NEUROLOGICAL: Awake and alert. PSYCHIATRIC: Wears sunglasses at all times. Mute. Urinary Catheter: No Vascular Central Line Catheter: No A/P Assessment and Plan Bilateral Lower Extremity Weakness, Difficulty w/Ambulation: Subjective. Cervical CT, lumbar CT scans were performed which did not indicate any acute abnormality which would indicate bilateral lower extremity weakness. Patient is refusing PT/OT evaluations Patient refused lumbar puncture for further evaluation. Patient will not undergo MRI study Neurology Dr. Nelson, has evaluated the patient does not have any etiology of the patient's lower extremity weakness. He is recommending angiography of the lumbar spine because of her hypercoagulability state from the recent saddle emboli, however radiologist does not perform any angiography of the spine. Radiologist recommended MRI study of the thoracic and lumbar spine. However, patient was not able to perform MRI study and refuses to have it done. Neurology indicated that there is nothing else they can offer from a neurological standpoint to contribute to the patient's possible etiologies. He indicated that he will sign off and defer continued management to medical team 07/13: Nurse states that patient is nonambulatory and patient has to lift her legs with her hands in order to move them. 07/05 PT note states patient refuses PT. 07/14: PT tried to reevaluate patient but patient again refuses therapy. She writes that if Dr. Nelson wants more tests she would comply, but this is doubtful as she has refused his ordered tests in the past. Subacute Pulmonary Embolism 06/08/16 with Subtherapeutic INR: During previous hospitalization, patient refused TPA. V/Q scan was performed which could not rule out the possibility of emboli Patient refusing Lovenox/Coumadin at this time Patient indicates that she was told that she does not have any blood clots Patient was given copy of recent CTA for confirmation of her blood clot Colleague discussed with the patient extensively that without anticoagulation she is at increased risk of embolic events to include worsening pulmonary emboli , stroke, . Palliative care was consulted for recommendations. Anticoagulation discontinued due to patient refusal; will restart if patient chooses to comply. Selective Mutism with Paranoid Schizophrenia: chronic, Neuropsychologist Dr. Jacinto evaluated the patient on 07/22 and states she is impaired cognitively and does not feel that the patient is capable of making her own decisions and requested psychiatry reevaluated the patient to start treating the patient for her underlying psychiatric illness. Psychiatry reevaluated the patient on 07/23 and agrees with neuropsychologist. Indicates patient does not have capacity to make appropriate judgments concerning her treatment. Patient will need healthcare surrogate appointed. Medical Noncompliance: Patient is refusing all medical care this time to include life-saving medications, physical therapy, occupational therapy, refusing to ambulate. Patient is not allowing medical staff to perform their duties and protect her from harm and prevent her from having significant life-threatening medical complications Colleague discussed with palliative care physician Dr. Riddle, he states that he is familiar with this patient. He indicates that patient may need to have further evaluation for competency since the patient is clearly indicating that she does not have a condition or conditions that have been objectively identified and patient has been counseled extensively on. He indicates that we' ll need to get case management and legal involved for appropriate management of this patient. Per palliative care patient refused to discuss living will, refused to complete health care surrogate. See above. Candidal intertrigo: under bilateral breasts. Nystatin powder. DVT Prophylaxis: Patient refusing Coumadin/Lovenox Discharge Planning CM will work on obtaining healthcare surrogate for patient. Sneha Choi Jul 29, 2016 12:04
[2016-07-29 20:00] VITALS: BP 104/56; PULSE 63; RESP 20; TEMP 97.8; O2SAT 98
[2016-07-30 08:00] VITALS: BP 106/67; PULSE 55; RESP 16; TEMP 97.5; O2SAT 100
[2016-07-30] MEDS: SODIUM CHLORIDE 0.9% FLUSH 10 ML FLUSH IV FLUSH SCH ×2 (09:00→21:00)
[2016-07-30] MEDS: NYSTATIN 100,000 U/GM PWD 15 GM BTL TOPICAL SCH ×2 (09:00→21:00)
--- NOTE | 2016-07-30 09:25 | HHI.PR ---
Subjective Remarks Follow-up for bilateral lower extremity weakness, medication non-compliance for PE. Does not speak. Objective Vitals Vital Signs Date Time Temp Pulse Resp B/P Pulse Ox O2 Delivery O2 Flow Rate FiO2 07/29/16 20:00 97.8 63 20 104/56 98 07/29/16 09:59 97.1 54 15 98/69 100 I/O 07/29/16 07/29/16 07/29/16 07/30/16 07/30/16 07/30/16 07:00 15:00 23:00 07:00 15:00 23:00 Intake Total 480 ml 1680 ml 480 ml Balance 480 ml 1680 ml 480 ml Intake Oral 480 ml 1680 ml 480 ml # Voids 2 4 2 # Bowel Movements 0 2 1 Objective Remarks GENERAL: Well-developed patient in apparent distress. CARDIOVASCULAR: Normal rate and regular rhythm. RESPIRATORY: No accessory muscle use. CTAB. NEUROLOGICAL: Awake and alert. PSYCHIATRIC: Wears sunglasses at all times. Mute. Urinary Catheter: No Vascular Central Line Catheter: No A/P Assessment and Plan Bilateral Lower Extremity Weakness, Difficulty w/Ambulation: Subjective. Cervical CT, lumbar CT scans were performed which did not indicate any acute abnormality which would indicate bilateral lower extremity weakness. Patient is refusing PT/OT evaluations Patient refused lumbar puncture for further evaluation. Patient will not undergo MRI study Neurology Dr. Nelson, has evaluated the patient does not have any etiology of the patient's lower extremity weakness. He is recommending angiography of the lumbar spine because of her hypercoagulability state from the recent saddle emboli, however radiologist does not perform any angiography of the spine. Radiologist recommended MRI study of the thoracic and lumbar spine. However, patient was not able to perform MRI study and refuses to have it done. Neurology indicated that there is nothing else they can offer from a neurological standpoint to contribute to the patient's possible etiologies. He indicated that he will sign off and defer continued management to medical team 07/13: Nurse states that patient is nonambulatory and patient has to lift her legs with her hands in order to move them. 07/05 PT note states patient refuses PT. 07/14: PT tried to reevaluate patient but patient again refuses therapy. She writes that if Dr. Nelson wants more tests she would comply, but this is doubtful as she has refused his ordered tests in the past. Subacute Pulmonary Embolism 06/08/16 with Subtherapeutic INR: During previous hospitalization, patient refused TPA. V/Q scan was performed which could not rule out the possibility of emboli Patient refusing Lovenox/Coumadin at this time Patient indicates that she was told that she does not have any blood clots Patient was given copy of recent CTA for confirmation of her blood clot Colleague discussed with the patient extensively that without anticoagulation she is at increased risk of embolic events to include worsening pulmonary emboli , stroke, . Palliative care was consulted for recommendations. Anticoagulation discontinued due to patient refusal; will restart if patient chooses to comply. Selective Mutism with Paranoid Schizophrenia: chronic, Neuropsychologist Dr. Jacinto evaluated the patient on 07/22 and states she is impaired cognitively and does not feel that the patient is capable of making her own decisions and requested psychiatry reevaluated the patient to start treating the patient for her underlying psychiatric illness. Psychiatry reevaluated the patient on 07/23 and agrees with neuropsychologist. Indicates patient does not have capacity to make appropriate judgments concerning her treatment. Patient will need healthcare surrogate appointed. Medical Noncompliance: Patient is refusing all medical care this time to include life-saving medications, physical therapy, occupational therapy, refusing to ambulate. Patient is not allowing medical staff to perform their duties and protect her from harm and prevent her from having significant life-threatening medical complications Colleague discussed with palliative care physician Dr. Riddle, he states that he is familiar with this patient. He indicates that patient may need to have further evaluation for competency since the patient is clearly indicating that she does not have a condition or conditions that have been objectively identified and patient has been counseled extensively on. He indicates that we' ll need to get case management and legal involved for appropriate management of this patient. Per palliative care patient refused to discuss living will, refused to complete health care surrogate. See above. Candidal intertrigo: under bilateral breasts. Nystatin powder. DVT Prophylaxis: Patient refusing Coumadin/Lovenox Discharge Planning CM will work on obtaining healthcare surrogate for patient. Sneha Choi Jul 30, 2016 09:25
[2016-07-30 20:00] VITALS: BP 110/64; PULSE 59; RESP 19; TEMP 97.6; O2SAT 100
[2016-07-31 08:00] VITALS: BP 133/96; PULSE 79; RESP 18; TEMP 98.2; O2SAT 95
[2016-07-31] MEDS: NYSTATIN 100,000 U/GM PWD 15 GM BTL TOPICAL SCH ×2 (09:00→21:00)
[2016-07-31] MEDS: SODIUM CHLORIDE 0.9% FLUSH 10 ML FLUSH IV FLUSH SCH ×2 (09:00→21:00)
--- NOTE | 2016-07-31 11:23 | HHI.PR ---
Subjective Remarks Follow-up for bilateral lower extremity weakness, medication non-compliance for PE. No acute issues reported. Objective Vitals Vital Signs Date Time Temp Pulse Resp B/P Pulse Ox O2 Delivery O2 Flow Rate FiO2 07/31/16 08:00 98.2 79 18 133/96 95 07/30/16 20:00 97.6 59 19 110/64 100 I/O 07/30/16 07/30/16 07/30/16 07/31/16 07/31/16 07/31/16 07:00 15:00 23:00 07:00 15:00 23:00 Intake Total 480 ml 720 ml 240 ml Output Total 1 ml Balance 480 ml 719 ml 240 ml Intake Oral 480 ml 720 ml 240 ml Stool Total 1 ml # Voids 2 5 2 # Bowel Movements 1 2 Objective Remarks GENERAL: Well-developed patient in apparent distress. CARDIOVASCULAR: Normal rate and regular rhythm. RESPIRATORY: No accessory muscle use. CTAB. NEUROLOGICAL: Awake and alert. PSYCHIATRIC: Wears sunglasses at all times. Mute. Urinary Catheter: No Vascular Central Line Catheter: No A/P Assessment and Plan Bilateral Lower Extremity Weakness, Difficulty w/Ambulation: Subjective. Cervical CT, lumbar CT scans were performed which did not indicate any acute abnormality which would indicate bilateral lower extremity weakness. Patient is refusing PT/OT evaluations Patient refused lumbar puncture for further evaluation. Patient will not undergo MRI study Neurology Dr. Nelson, has evaluated the patient does not have any etiology of the patient's lower extremity weakness. He is recommending angiography of the lumbar spine because of her hypercoagulability state from the recent saddle emboli, however radiologist does not perform any angiography of the spine. Radiologist recommended MRI study of the thoracic and lumbar spine. However, patient was not able to perform MRI study and refuses to have it done. Neurology indicated that there is nothing else they can offer from a neurological standpoint to contribute to the patient's possible etiologies. He indicated that he will sign off and defer continued management to medical team 07/13: Nurse states that patient is nonambulatory and patient has to lift her legs with her hands in order to move them. 07/05 PT note states patient refuses PT. 07/14: PT tried to reevaluate patient but patient again refuses therapy. She writes that if Dr. Nelson wants more tests she would comply, but this is doubtful as she has refused his ordered tests in the past. Subacute Pulmonary Embolism 06/08/16 with Subtherapeutic INR: During previous hospitalization, patient refused TPA. V/Q scan was performed which could not rule out the possibility of emboli Patient refusing Lovenox/Coumadin at this time Patient indicates that she was told that she does not have any blood clots Patient was given copy of recent CTA for confirmation of her blood clot Colleague discussed with the patient extensively that without anticoagulation she is at increased risk of embolic events to include worsening pulmonary emboli , stroke, . Palliative care was consulted for recommendations. Anticoagulation discontinued due to patient refusal; will restart if patient chooses to comply. Selective Mutism with Paranoid Schizophrenia: chronic, Neuropsychologist Dr. Jacinto evaluated the patient on 07/22 and states she is impaired cognitively and does not feel that the patient is capable of making her own decisions and requested psychiatry reevaluated the patient to start treating the patient for her underlying psychiatric illness. Psychiatry reevaluated the patient on 07/23 and agrees with neuropsychologist. Indicates patient does not have capacity to make appropriate judgments concerning her treatment. Patient will need healthcare surrogate appointed. Medical Noncompliance: Patient is refusing all medical care this time to include life-saving medications, physical therapy, occupational therapy, refusing to ambulate. Patient is not allowing medical staff to perform their duties and protect her from harm and prevent her from having significant life-threatening medical complications Colleague discussed with palliative care physician Dr. Riddle, he states that he is familiar with this patient. He indicates that patient may need to have further evaluation for competency since the patient is clearly indicating that she does not have a condition or conditions that have been objectively identified and patient has been counseled extensively on. He indicates that we' ll need to get case management and legal involved for appropriate management of this patient. Per palliative care patient refused to discuss living will, refused to complete health care surrogate. See above. Candidal intertrigo: under bilateral breasts. Nystatin powder. DVT Prophylaxis: Patient refusing Coumadin/Lovenox Discharge Planning CM will work on obtaining healthcare surrogate for patient. Sneha Choi Jul 31, 2016 11:22
[2016-07-31 20:00] VITALS: BP 108/80; PULSE 66; RESP 21; TEMP 98.5; O2SAT 96
[2016-08-01] MEDS: SODIUM CHLORIDE 0.9% FLUSH 10 ML FLUSH IV FLUSH SCH ×2 (08:49→21:00)
[2016-08-01] MEDS: NYSTATIN 100,000 U/GM PWD 15 GM BTL TOPICAL SCH ×2 (08:50→21:00)
--- NOTE | 2016-08-01 09:56 | HHI.PR ---
Subjective Remarks Follow-up for bilateral lower extremity weakness, medication non-compliance for PE. No acute issues reported. I have been made aware by the case management coordinator that the patient's mother agreed to make the patient's medical decisions. Objective Vitals Vital Signs Date Time Temp Pulse Resp B/P Pulse Ox O2 Delivery O2 Flow Rate FiO2 07/31/16 20:00 98.5 66 21 108/80 96 I/O 07/31/16 07/31/16 07/31/16 08/01/16 08/01/16 08/01/16 06:59 14:59 22:59 06:59 14:59 22:59 Intake Total 240 ml 240 ml Balance 240 ml 240 ml Intake Oral 240 ml 240 ml # Voids 2 1 # Bowel Movements 2 1 Objective Remarks GENERAL: Well-developed patient in apparent distress. CARDIOVASCULAR: Normal rate and regular rhythm. RESPIRATORY: No accessory muscle use. CTAB. NEUROLOGICAL: Awake and alert. PSYCHIATRIC: Wears sunglasses at all times. [place]. Urinary Catheter: No Vascular Central Line Catheter: No A/P Assessment and Plan 08/01: I have been made aware by the case management coordinator today that the patient's mother has agreed to make medical decisions for the patient. I discussed this with Dr. Owen. Dr. Nelson, neurologist, had wanted a CTA of the lumbar spine but after speaking with radiology today this is not an available test. Per crane service technician's discussion with Dr. Garcia, MRI of the thoracic and lumbar spine with and without contrast recommended and have been ordered. Will also order CT pulmonary angiogram to reassess saddle PE diagnosed in May. Nurse advised to place IV. I personally spoke with mother Marbella at [phone] who has given approval for all tests and for use of Ativan if needed to relax patient for testing. She would prefer patient does not know she (mother) is making the medical decisions until she speaks with the psychiatrist, but nurses have already made patient aware. Multiple nurses felt uncomfortable holding patient down to place IV because she is oriented even though I informed them she does not have capacity. Charge nurse has called risk management, and I was made aware by nurse that patient needed paperwork attached to chart as well as reaffirmation by psychiatrist that patient does not have capacity. I personally spoke with Dr. Guthrie, psychiatrist, this afternoon who states no paperwork is required. He states the patient does not have capacity to make her own medical decisions and the mother can do so. I spoke with Tysno, the case management coordinator who has spoken with risk management and states that this has to be unequivocally stated in Dr. Guthrie's note as there was a discrepancy in last psych note by Dr. Montgomery which stated "if the patient does not have capacity...". Once this is clearly stated, we can proceed with testing. Bilateral Lower Extremity Weakness, Difficulty w/Ambulation: Subjective. Cervical CT, lumbar CT scans were performed which did not indicate any acute abnormality which would indicate bilateral lower extremity weakness. Patient is refusing PT/OT evaluations Patient refused lumbar puncture for further evaluation. Patient will not undergo MRI study Neurology Dr. Nelson, has evaluated the patient does not have any etiology of the patient's lower extremity weakness. He is recommending angiography of the lumbar spine because of her hypercoagulability state from the recent saddle emboli, however radiologist does not perform any angiography of the spine. Radiologist recommended MRI study of the thoracic and lumbar spine. However, patient was not able to perform MRI study and refuses to have it done. Neurology indicated that there is nothing else they can offer from a neurological standpoint to contribute to the patient's possible etiologies. He indicated that he will sign off and defer continued management to medical team 07/13: Nurse states that patient is nonambulatory and patient has to lift her legs with her hands in order to move them. 07/05 PT note states patient refuses PT. 07/14: PT tried to reevaluate patient but patient again refuses therapy. She writes that if Dr. Nelson wants more tests she would comply, but this is doubtful as she has refused his ordered tests in the past. Subacute Pulmonary Embolism 06/08/16 with Subtherapeutic INR: During previous hospitalization, patient refused TPA. V/Q scan was performed which could not rule out the possibility of emboli Patient refusing Lovenox/Coumadin at this time Patient indicates that she was told that she does not have any blood clots Patient was given copy of recent CTA for confirmation of her blood clot Colleague discussed with the patient extensively that without anticoagulation she is at increased risk of embolic events to include worsening pulmonary emboli , stroke, . Palliative care was consulted for recommendations. Anticoagulation discontinued due to patient refusal; will restart if patient chooses to comply. Selective Mutism with Paranoid Schizophrenia: chronic, Neuropsychologist Dr. Jacinto evaluated the patient on 07/22 and states she is impaired cognitively and does not feel that the patient is capable of making her own decisions and requested psychiatry reevaluated the patient to start treating the patient for her underlying psychiatric illness. Psychiatry reevaluated the patient on 07/23 and agrees with neuropsychologist. Indicates patient does not have capacity to make appropriate judgments concerning her treatment. Patient will need healthcare surrogate appointed. Medical Noncompliance: Patient is refusing all medical care this time to include life-saving medications, physical therapy, occupational therapy, refusing to ambulate. Patient is not allowing medical staff to perform their duties and protect her from harm and prevent her from having significant life-threatening medical complications Colleague discussed with palliative care physician Dr. Riddle, he states that he is familiar with this patient. He indicates that patient may need to have further evaluation for competency since the patient is clearly indicating that she does not have a condition or conditions that have been objectively identified and patient has been counseled extensively on. He indicates that we' ll need to get case management and legal involved for appropriate management of this patient. Per palliative care patient refused to discuss living will, refused to complete health care surrogate. See above. Candidal intertrigo: under bilateral breasts. Nystatin powder. DVT Prophylaxis: Patient refusing Coumadin/Lovenox Discharge Planning 08/01: Once testing is performed to rule out any legitimate cause of leg weakness , patient will need to be discharged preferably to a psych care facility. Sneha Choi Aug 01, 2016 09:56
[2016-08-01 12:30] VITALS: BP 106/70; PULSE 68; RESP 16; TEMP 98.2; O2SAT 97
[2016-08-01] MEDS ORDERED: LORazepam 2 MG/ML VIAL IV PUSH PRN (12:30)
--- NOTE | 2016-08-01 17:08 | HHI.PYPN ---
Subjective Remarks Patient was seen for psychiatric reevaluation of decision making capacity, but this time patient completely refuses to communicate with psychiatry. She even refused to write in her notebook. She would not verbalize a rational choice about her medical treatment and refusal to follow recommendations. She would not expresses either verbally or by writing the reason of her hospitalization, her medical illness and consequences of her action. Review of Systems Ears, nose, mouth, throat: COMPLAINS OF: Epistaxis (no somatic complains) Objective Alert: Yes [place]: Person, Place, Date, Situation Mood: Calm, Oppositional, Other (irritable) Affect: Appropriate, Other (slight increased range and intensity) Memory Intact: Immediate, Recent, Remote Hallucinations: Other (she denies) Delusions: No Delusion Type: Other (none elicited) Suicidal: Ideation (she denies) Homicidal: Ideation (she denies) Insight/Judgment poor Vitals/IOs Vital Signs Date Time Temp Pulse Resp B/P Pulse Ox O2 Delivery O2 Flow Rate FiO2 07/31/16 20:00 98.5 66 21 108/80 96 Intake and Output 07/31/16 07/31/16 08/01/16 08:00 16:00 00:00 Intake Total 240 ml 240 ml Balance 240 ml 240 ml Assessment & Plan Problem List: (1) Encounter for psychiatric assessment Assessment & Plan: Since patient is unable to verbalized or express a rational understanding and appreciation of medical condition, reason to refuse treatment and to follow medical recommendation, patient does not have decision making capacity to refuse treatment at this moment. Health care by proxy, which is the mother, should be the one making medical decisions for her. ICD Code: Z76.89 (2) Paranoid schizophrenia, chronic condition with acute exacerbation ICD Code: F20.0 Assessment & Plan Estimated LOS: days Justification for Cont. Inpt. no psychiatric hospitalization needed Vijay Guthrie MD Aug 01, 2016 17:08
[2016-08-01 20:00] VITALS: BP 108/70; PULSE 67; RESP 21; TEMP 98.9; O2SAT 98
[2016-08-02] MEDS: SODIUM CHLORIDE 0.9% FLUSH 10 ML FLUSH IV FLUSH SCH ×2 (09:00→20:50)
[2016-08-02] MEDS: NYSTATIN 100,000 U/GM PWD 15 GM BTL TOPICAL SCH ×2 (09:00→20:51)
--- NOTE | 2016-08-02 10:55 | HHI.PR ---
Subjective Remarks Patient seen and examined today for follow-up on noncompliance, subjective lower extremity weakness. Patient refuses to participate in conversation. She does not write anything or speak. Objective Vitals Vital Signs Date Time Temp Pulse Resp B/P Pulse Ox O2 Delivery O2 Flow Rate FiO2 08/01/16 20:00 98.9 67 21 108/70 98 08/01/16 12:30 98.2 68 16 106/70 97 I/O 08/01/16 08/01/16 08/01/16 08/02/16 08/02/16 08/02/16 07:00 15:00 23:00 07:00 15:00 23:00 Intake Total 1240 ml 240 ml Balance 1240 ml 240 ml Intake Oral 1240 ml 240 ml # Voids 1 4 1 # Bowel Movements 1 Objective Remarks GENERAL: Well-developed, well-nourished, in no acute distress. Urinary Catheter: No Vascular Central Line Catheter: No A/P Assessment and Plan Medical Noncompliance: Patient is refusing all medical care this time to include life-saving medications, physical therapy, occupational therapy, refusing to ambulate. Patient is not allowing medical staff to perform their duties and protect her from harm and prevent her from having significant life-threatening medical complications Discussed with palliative care physician Dr. Riddle, he states that he is familiar with this patient. He indicates that patient may need to have further evaluation for competency since the patient is clearly indicating that she does not have a condition or conditions that have been objectively identified and patient has been counseled extensively on. He indicates that we'll need to get case management and legals involved for appropriate management of this patient. From medical standpoint there is nothing else that medical service can offer due to the patient's noncompliance, unwilling to participate in patient care. We'll continue to defer evaluation and recommendations to psychiatry and case management Discuss with neuro psychiatrist, he indicated that he evaluated patient states that patient has had a significant change in her psychiatric illness and personalities/attitude. He does not feel that the patient is capable of making her own decisions and requests psychiatry reevaluated the patient to start treating the patient for her underlying psychiatric illness Psychiatry reevaluated the patient and does agree with neuro psychologist. At this point it was indicated patient does not have capacity make appropriate judgments concerning her treatment. He feels that appointment of a healthcare surrogate would be appropriate. Psychiatry reevaluated patient and indicated that patient is unable to make her own decisions and healthcare by proxy which is her mother should be the one making medical decisions for her. Bilateral Lower Extremity Weakness, Difficulty w/Ambulation: Subjective. Patient refusing workup and treatment Cervical CT, lumbar CT scans were performed which did not indicate any acute abnormality which would indicate bilateral lower extremity weakness. Patient is refusing PT/OT evaluations Patient refused lumbar puncture for further evaluation. Patient will not undergo MRI study Neurology Dr. Nelson, has evaluated the patient does not have any etiology of the patient's lower extremity weakness. He is recommending angiography of the lumbar spine because of her hypercoagulability state from the recent saddle emboli, however radiologist does not perform any angiography of the spine. Radiologist recommended MRI study of the thoracic and lumbar spine. However, patient was not able to perform MRI study yesterday and refuses to have it done. Neurology indicated that there is nothing else they can offer from a neurological standpoint to contribute to the patient's possible etiologies. He indicated that he will sign off and defer continue management to medical team MRI of thoracic and lumbar spine has been requested Subacute Pulmonary Embolism 06/08/16 with Subtherapeutic INR: Patient refusing treatment during previous hospitalization, patient refused TPA, V/Q scan was performed which could not rule out the possibility of emboli Patient refusing Lovenox/Coumadin Patient indicates that she was told that she does not have any blood clots Patient was given copy of recent CTA for confirmation of her blood clot, however, patient states that that is not her It was discussed with the patient extensively that without anticoagulation she is at increased risk of embolic events to include worsening pulmonary emboli, stroke, . Palliative care was consulted for recommendations. Repeat CTA has been ordered to evaluate for residual pulmonary emboli Selective Mutism with Paranoid Schizophrenia: chronic, Patient has been evaluated by psychiatry, Psychiatry reconsulted due to the patient refusing medical care. As indicated by psychiatry the patient has full capacity to make her own medical decisions she is alert and orientated. 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 Refusal of speaking with caregivers about her condition. Likely need evaluation for competency. Patient will likely need inpatient psychiatric management Psychiatry did reevaluated the patient however patient would not let psychiatrist demand planning analyst or examine her. Psychiatrist referred back to previous notes indicate that patient has at least some degree of capacity. Psychiatrist is recommending that patient be evaluated by ethics committee Candidal intertrigo: under bilateral breasts. Patient refusing Nystatin powder. DVT Prophylaxis: Patient refusing Coumadin/Lovenox Discharge Planning Unable to determine discharge planning this time as patient was refusing all medical treatment, management, therapies. Case management consulted for possible administration evaluation with ethics, legal. program manager transportation's note from 08/01/16 indicates that he has spoken with patient's mother who agreed to assist in medical decision-making and assist change healthcare to get Medicaid reinstated. Steven Mccray Aug 02, 2016 10:55
[2016-08-02 20:00] VITALS: BP 110/74; PULSE 65; RESP 20; TEMP 97; O2SAT 96
[2016-08-03] MEDS: SODIUM CHLORIDE 0.9% FLUSH 10 ML FLUSH IV FLUSH SCH ×2 (08:36→21:00)
[2016-08-03] MEDS: NYSTATIN 100,000 U/GM PWD 15 GM BTL TOPICAL SCH ×2 (08:37→21:00)
[2016-08-03 08:55] VITALS: BP 103/72; PULSE 56; RESP 19; TEMP 97.6; O2SAT 100
--- NOTE | 2016-08-03 13:19 | HHI.PR ---
Subjective Remarks Patient seen and examined today for follow-up on noncompliance and lower extremity weakness. Patient again lying in bed when entering the room with nurse present. Patient refuses talk her conversation or have any interaction with me or the nurse at all. Objective Vitals Vital Signs Date Time Temp Pulse Resp B/P Pulse Ox O2 Delivery O2 Flow Rate FiO2 08/03/16 08:55 97.6 56 19 103/72 100 08/02/16 20:00 97.0 65 20 110/74 96 I/O 08/02/16 08/02/16 08/02/16 08/03/16 08/03/16 08/03/16 07:00 15:00 23:00 07:00 15:00 23:00 Intake Total 240 ml 960 ml 480 ml 480 ml Balance 240 ml 960 ml 480 ml 480 ml Intake Oral 240 ml 960 ml 480 ml 480 ml # Voids 1 2 2 # Bowel Movements 2 1 Objective Remarks GENERAL: Well-developed, well-nourished, in no acute distress. Urinary Catheter: No Vascular Central Line Catheter: No A/P Assessment and Plan Medical Noncompliance: Patient is refusing all medical care this time to include life-saving medications, physical therapy, occupational therapy, refusing to ambulate. Patient is not allowing medical staff to perform their duties and protect her from harm and prevent her from having significant life-threatening medical complications Discussed with palliative care physician Dr. Riddle, he states that he is familiar with this patient. He indicates that patient may need to have further evaluation for competency since the patient is clearly indicating that she does not have a condition or conditions that have been objectively identified and patient has been counseled extensively on. He indicates that we'll need to get case management and legals involved for appropriate management of this patient. From medical standpoint there is nothing else that medical service can offer due to the patient's noncompliance, unwilling to participate in patient care. We'll continue to defer evaluation and recommendations to psychiatry and case management Discuss with neuro psychiatrist, he indicated that he evaluated patient states that patient has had a significant change in her psychiatric illness and personalities/attitude. He does not feel that the patient is capable of making her own decisions and requests psychiatry reevaluated the patient to start treating the patient for her underlying psychiatric illness Psychiatry reevaluated the patient and does agree with neuro psychologist. At this point it was indicated patient does not have capacity make appropriate judgments concerning her treatment. He feels that appointment of a healthcare surrogate would be appropriate. Psychiatry reevaluated patient and indicated that patient is unable to make her own decisions and healthcare by proxy which is her mother should be the one making medical decisions for her. Bilateral Lower Extremity Weakness, Difficulty w/Ambulation: Subjective. Patient refusing workup and treatment Cervical CT, lumbar CT scans were performed which did not indicate any acute abnormality which would indicate bilateral lower extremity weakness. Patient is refusing PT/OT evaluations Patient refused lumbar puncture for further evaluation. Patient will not undergo MRI study Neurology Dr. Nelson, has evaluated the patient does not have any etiology of the patient's lower extremity weakness. He is recommending angiography of the lumbar spine because of her hypercoagulability state from the recent saddle emboli, however radiologist does not perform any angiography of the spine. Radiologist recommended MRI study of the thoracic and lumbar spine. However, patient was not able to perform MRI study yesterday and refuses to have it done. Neurology indicated that there is nothing else they can offer from a neurological standpoint to contribute to the patient's possible etiologies. He indicated that he will sign off and defer continue management to medical team MRI of thoracic and lumbar spine has been requested Subacute Pulmonary Embolism 06/08/16 with Subtherapeutic INR: Patient refusing treatment during previous hospitalization, patient refused TPA, V/Q scan was performed which could not rule out the possibility of emboli Patient refusing Lovenox/Coumadin Patient indicates that she was told that she does not have any blood clots Patient was given copy of recent CTA for confirmation of her blood clot, however, patient states that that is not her It was discussed with the patient extensively that without anticoagulation she is at increased risk of embolic events to include worsening pulmonary emboli, stroke, . Palliative care was consulted for recommendations. Repeat CTA has been ordered to evaluate for residual pulmonary emboli Selective Mutism with Paranoid Schizophrenia: chronic, Patient has been evaluated by psychiatry, Psychiatry reconsulted due to the patient refusing medical care. As indicated by psychiatry the patient has full capacity to make her own medical decisions she is alert and orientated. 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 Refusal of speaking with caregivers about her condition. Likely need evaluation for competency. Patient will likely need inpatient psychiatric management Psychiatry did reevaluated the patient however patient would not let psychiatrist clinical writer or examine her. Psychiatrist referred back to previous notes indicate that patient has at least some degree of capacity. Psychiatrist is recommending that patient be evaluated by ethics committee Candidal intertrigo: under bilateral breasts. Patient refusing Nystatin powder. DVT Prophylaxis: Patient refusing Coumadin/Lovenox Discharge Planning Unable to determine discharge planning this time as patient was refusing all medical treatment, management, therapies. Case management consulted for possible administration evaluation with ethics, legal. manager drug safety's note from 08/01/16 indicates that he has spoken with patient's mother who agreed to assist in medical decision-making and assist change healthcare to get Medicaid reinstated. Steven Mccray Aug 03, 2016 13:19
--- NOTE | 2016-08-03 16:00 | HHI.PR ---
Neuropsych Behavior Behavior: Severe: Cooperative w/ Treatment, Motivation Cognitive Cognitive: Unable to Asses: Cognitive, Attention/Concentration, Confused/ Orientation, Insight/Awareness, Judgement/Problem-Solving, Memory Progress Notes/Response to Tx Contents of Sessions: Adjustment Time with Patient: 30 minutes Premorbid psychological status Premorbid Cognitive, Emotional and Behavioral Status: Unstable. The patient's past history is relatively unknown except for her long psychiatric history. Behavioral Reactions of Patient and Family/Support System: Unstable. The patient has been homeless for many years. Emotional/Behavioral Status of Patient and Family/Support System: Unstable. Pertinent issues, if appropriate to this patients clinical care, are described in detail above. Maximizing acute care outcome The essential issue presently is that the patient is entirely noncompliant with medical directives. Getting her to consent to treatment, be it either psychiatric or medical, is essential to maximize her care. However, she is unwilling to consent. Anticipated Problems Ongoing areas of concern will include behavioral impulsivity, lack of insight and judgment, which is not expected to improve with time or treatment. Treatment Plan This clinician will continue to follow with you throughout the course of this patients hospitalization, and I will be available to meet with the patients family/support system to facilitate their understanding and the ongoing care of their family member. The goals of neuropsychological intervention shall be both educational and supportive to the family/support system as is deemed clinically appropriate. Impression This 40 year old woman who is well known to me from her previous medical hospitalization for untreated PE, who was at that time was able to become a partner in her own healthcare when provided explanation, now presents with similar significant health concerns, but now exhibits increased paranoid ideation and a refusal to accept medical care for these significant health concerns. Her neurobehavioral change from her first hospitalization to her present hospitalization is striking such that she not only would not acknowledge the prior healthcare relationship she had with this examiner but she would not acknowledge that she is the same individual who was treated for these conditions. It is my clinical opinion that this patient's prior underlying major psychiatric disorder, paranoid schizophrenia, is exacerbated and now interferes from a neurocognitive perspective with her ability to make rational decisions of a legal, financial and medical nature. At this point, she is in my opinion demonstrated the IMPAIRED ability to appreciate a situation and its likely consequences and she demonstrates the IMPAIRED ability to manipulate information rationally. Diagnosis: (1) Paranoid schizophrenia, chronic condition with acute exacerbation Status: Acute (2) Elective mutism Status: Chronic Progress Note Narrative Ongoing follow-up of patient seen bedside at [facility]. The patient is unwilling to state that she remembers my involvement in her care, and attempt to manipulate the conversation (she is writing down statements due to her elective mutism) for me to state to her who referred me to her, and then is unwilling to listen to the answer she is given, and subsequently asking me to leave. Certainly, she has severe psychiatric illness, manifesting as acute paranoid ideation and behavioral aberration, yet she remains cognitively intact enough to manipulate the hospital system to stay at a border. I will continue to follow. Rosalio Jacinto PhD Aug 03, 2016 16:00
[2016-08-03 20:00] VITALS: BP 97/73; PULSE 64; RESP 20; TEMP 98; O2SAT 98
[2016-08-04] MEDS: SODIUM CHLORIDE 0.9% FLUSH 10 ML FLUSH IV FLUSH SCH ×2 (09:00→21:00)
[2016-08-04] MEDS: NYSTATIN 100,000 U/GM PWD 15 GM BTL TOPICAL SCH ×2 (09:00→21:00)
--- NOTE | 2016-08-04 10:20 | HHI.PR ---
Subjective Remarks Patient seen and examined today for noncompliance and lower extremity weakness. Patient still refusing to have MRI done per arcade technician. Still waiting for case management, legals, psychiatry to further notify medical team on what can be done Objective Vitals Vital Signs Date Time Temp Pulse Resp B/P Pulse Ox O2 Delivery O2 Flow Rate FiO2 08/03/16 20:00 98.0 64 20 97/73 98 I/O 08/03/16 08/03/16 08/03/16 08/04/16 08/04/16 08/04/16 07:00 15:00 23:00 07:00 15:00 23:00 Intake Total 480 ml 480 ml 480 ml Balance 480 ml 480 ml 480 ml Intake Oral 480 ml 480 ml 480 ml # Voids 2 2 2 # Bowel Movements 1 1 0 Objective Remarks GENERAL: Well-developed, well-nourished, in no acute distress. Urinary Catheter: No Vascular Central Line Catheter: No A/P Assessment and Plan Medical Noncompliance: Patient is refusing all medical care this time to include life-saving medications, physical therapy, occupational therapy, refusing to ambulate. Patient is not allowing medical staff to perform their duties and protect her from harm and prevent her from having significant life-threatening medical complications Discussed with palliative care physician Dr. Riddle, he states that he is familiar with this patient. He indicates that patient may need to have further evaluation for competency since the patient is clearly indicating that she does not have a condition or conditions that have been objectively identified and patient has been counseled extensively on. He indicates that we'll need to get case management and legals involved for appropriate management of this patient. From medical standpoint there is nothing else that medical service can offer due to the patient's noncompliance, unwilling to participate in patient care. We'll continue to defer evaluation and recommendations to psychiatry and case management Discuss with neuro psychiatrist, he indicated that he evaluated patient states that patient has had a significant change in her psychiatric illness and personalities/attitude. He does not feel that the patient is capable of making her own decisions and requests psychiatry reevaluated the patient to start treating the patient for her underlying psychiatric illness Psychiatry reevaluated the patient and does agree with neuro psychologist. At this point it was indicated patient does not have capacity make appropriate judgments concerning her treatment. He feels that appointment of a healthcare surrogate would be appropriate. Psychiatry reevaluated patient and indicated that patient is unable to make her own decisions and healthcare by proxy which is her mother should be the one making medical decisions for her. Bilateral Lower Extremity Weakness, Difficulty w/Ambulation: Subjective. Patient refusing workup and treatment Cervical CT, lumbar CT scans were performed which did not indicate any acute abnormality which would indicate bilateral lower extremity weakness. Patient is refusing PT/OT evaluations Patient refused lumbar puncture for further evaluation. Patient will not undergo MRI study Neurology Dr. Nelson, has evaluated the patient does not have any etiology of the patient's lower extremity weakness. He is recommending angiography of the lumbar spine because of her hypercoagulability state from the recent saddle emboli, however radiologist does not perform any angiography of the spine. Radiologist recommended MRI study of the thoracic and lumbar spine. However, patient was not able to perform MRI study yesterday and refuses to have it done. Neurology indicated that there is nothing else they can offer from a neurological standpoint to contribute to the patient's possible etiologies. He indicated that he will sign off and defer continue management to medical team MRI of thoracic and lumbar spine has been requested Subacute Pulmonary Embolism 06/08/16 with Subtherapeutic INR: Patient refusing treatment during previous hospitalization, patient refused TPA, V/Q scan was performed which could not rule out the possibility of emboli Patient refusing Lovenox/Coumadin Patient indicates that she was told that she does not have any blood clots Patient was given copy of recent CTA for confirmation of her blood clot, however, patient states that that is not her It was discussed with the patient extensively that without anticoagulation she is at increased risk of embolic events to include worsening pulmonary emboli, stroke, . Palliative care was consulted for recommendations. Repeat CTA has been ordered to evaluate for residual pulmonary emboli Selective Mutism with Paranoid Schizophrenia: chronic, Patient has been evaluated by psychiatry, Psychiatry reconsulted due to the patient refusing medical care. As indicated by psychiatry the patient has full capacity to make her own medical decisions she is alert and orientated. 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 Refusal of speaking with caregivers about her condition. Likely need evaluation for competency. Patient will likely need inpatient psychiatric management Psychiatry did reevaluated the patient however patient would not let psychiatrist record librarian or examine her. Psychiatrist referred back to previous notes indicate that patient has at least some degree of capacity. Psychiatrist is recommending that patient be evaluated by ethics committee Candidal intertrigo: under bilateral breasts. Patient refusing Nystatin powder. DVT Prophylaxis: Patient refusing Coumadin/Lovenox Discharge Planning Unable to determine discharge planning this time as patient was refusing all medical treatment, management, therapies. Case management consulted for possible administration evaluation with ethics, legal. campground manager's note from 08/01/16 indicates that he has spoken with patient's mother who agreed to assist in medical decision-making and assist change healthcare to get Medicaid reinstated. Steven Mccray Aug 04, 2016 10:19
[2016-08-04 10:31] VITALS: BP 95/70; PULSE 64; RESP 16; TEMP 97.1; O2SAT 100
[2016-08-04 20:00] VITALS: BP 94/65; PULSE 62; RESP 21; TEMP 98.1; O2SAT 98
[2016-08-05 08:00] VITALS: BP 110/70; PULSE 66; RESP 18; TEMP 98.1; O2SAT 97
[2016-08-05] MEDS: SODIUM CHLORIDE 0.9% FLUSH 10 ML FLUSH IV FLUSH SCH ×2 (08:28→21:00)
[2016-08-05] MEDS: NYSTATIN 100,000 U/GM PWD 15 GM BTL TOPICAL SCH ×2 (08:29→21:00)
--- NOTE | 2016-08-05 11:41 | HHI.PR ---
Subjective Remarks Patient seen in follow-up for lower extremity weakness, noncompliance. Spoke to the patient with nursing room. Patient is lying in bed sunglasses on and covers pulled up overhead. She shakes her head no that she does not want to talk to anybody, she does not want any help, she doesn't want us to do anything for her. Objective Vitals Vital Signs Date Time Temp Pulse Resp B/P Pulse Ox O2 Delivery O2 Flow Rate FiO2 08/04/16 20:00 98.1 62 21 94/65 98 I/O 08/04/16 08/04/16 08/04/16 08/05/16 08/05/16 08/05/16 07:00 15:00 23:00 07:00 15:00 23:00 Intake Total 480 ml 1240 ml 120 ml Balance 480 ml 1240 ml 120 ml Intake Oral 480 ml 1240 ml 120 ml # Voids 2 6 1 # Bowel Movements 0 3 1 Objective Remarks GENERAL: Well-developed, well-nourished, in no acute distress. Urinary Catheter: No Vascular Central Line Catheter: No A/P Assessment and Plan Medical Noncompliance: Patient is refusing all medical care this time to include life-saving medications, physical therapy, occupational therapy, refusing to ambulate. Patient is not allowing medical staff to perform their duties and protect her from harm and prevent her from having significant life-threatening medical complications Discussed with palliative care physician Dr. Riddle, he states that he is familiar with this patient. He indicates that patient may need to have further evaluation for competency since the patient is clearly indicating that she does not have a condition or conditions that have been objectively identified and patient has been counseled extensively on. He indicates that we'll need to get case management and legals involved for appropriate management of this patient. From medical standpoint there is nothing else that medical service can offer due to the patient's noncompliance, unwilling to participate in patient care. We'll continue to defer evaluation and recommendations to psychiatry and case management Discuss with neuro psychiatrist, he indicated that he evaluated patient states that patient has had a significant change in her psychiatric illness and personalities/attitude. He does not feel that the patient is capable of making her own decisions and requests psychiatry reevaluated the patient to start treating the patient for her underlying psychiatric illness Psychiatry reevaluated the patient and does agree with neuro psychologist. At this point it was indicated patient does not have capacity make appropriate judgments concerning her treatment. He feels that appointment of a healthcare surrogate would be appropriate. Psychiatry reevaluated patient and indicated that patient is unable to make her own decisions and healthcare by proxy which is her mother should be the one making medical decisions for her. Bilateral Lower Extremity Weakness, Difficulty w/Ambulation: Subjective. Patient refusing workup and treatment Cervical CT, lumbar CT scans were performed which did not indicate any acute abnormality which would indicate bilateral lower extremity weakness. Patient is refusing PT/OT evaluations Patient refused lumbar puncture for further evaluation. Patient will not undergo MRI study Neurology Dr. Nelson, has evaluated the patient does not have any etiology of the patient's lower extremity weakness. He is recommending angiography of the lumbar spine because of her hypercoagulability state from the recent saddle emboli, however radiologist does not perform any angiography of the spine. Radiologist recommended MRI study of the thoracic and lumbar spine. However, patient was not able to perform MRI study yesterday and refuses to have it done. Neurology indicated that there is nothing else they can offer from a neurological standpoint to contribute to the patient's possible etiologies. He indicated that he will sign off and defer continue management to medical team MRI of thoracic and lumbar spine has been requested Subacute Pulmonary Embolism 06/08/16 with Subtherapeutic INR: Patient refusing treatment during previous hospitalization, patient refused TPA, V/Q scan was performed which could not rule out the possibility of emboli Patient refusing Lovenox/Coumadin Patient indicates that she was told that she does not have any blood clots Patient was given copy of recent CTA for confirmation of her blood clot, however, patient states that that is not her It was discussed with the patient extensively that without anticoagulation she is at increased risk of embolic events to include worsening pulmonary emboli, stroke, . Palliative care was consulted for recommendations. Repeat CTA has been ordered to evaluate for residual pulmonary emboli Selective Mutism with Paranoid Schizophrenia: chronic, Patient has been evaluated by psychiatry, Psychiatry reconsulted due to the patient refusing medical care. As indicated by psychiatry the patient has full capacity to make her own medical decisions she is alert and orientated. 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 Refusal of speaking with caregivers about her condition. Likely need evaluation for competency. Patient will likely need inpatient psychiatric management Psychiatry did reevaluated the patient however patient would not let psychiatrist frameman or examine her. Psychiatrist referred back to previous notes indicate that patient has at least some degree of capacity. Psychiatrist is recommending that patient be evaluated by ethics committee Candidal intertrigo: under bilateral breasts. Patient refusing Nystatin powder. DVT Prophylaxis: Patient refusing Coumadin/Lovenox Records were reviewed, is absolutely no change in this patient's treatment plan , don't foresee any changes anytime soon until risk, ethics, case management is able to figure out exactly what we can do with this patient Discharge Planning Unable to determine discharge planning this time as patient was refusing all medical treatment, management, therapies. Case management consulted for possible administration evaluation with ethics, legal. signals intelligence analysis manager's note from 08/01/16 indicates that he has spoken with patient's mother who agreed to assist in medical decision-making and assist change healthcare to get Medicaid reinstated. Steven Mccray Aug 05, 2016 11:41
[2016-08-05 20:00] VITALS: BP 100/69; PULSE 66; RESP 22; TEMP 98; O2SAT 98
[2016-08-06 08:00] VITALS: BP 87/58; PULSE 64; RESP 20; TEMP 98.1; O2SAT 99
[2016-08-06] MEDS: SODIUM CHLORIDE 0.9% FLUSH 10 ML FLUSH IV FLUSH SCH ×2 (09:00→21:00)
[2016-08-06] MEDS: NYSTATIN 100,000 U/GM PWD 15 GM BTL TOPICAL SCH ×2 (10:21→21:00)
--- NOTE | 2016-08-06 11:41 | HHI.PR ---
Subjective Remarks Patient seen today with DIVERSIONAL THERAPIST present. Patient only shakes her head no when asked if there is anything that we can do for her. Reiterated to the patient that because of her noncompliance her mother is now making her medical decisions for her. Patient apparently does not like that situation. She called the nurse back in after I had left than indicates that she wants the police called on me. Objective Vitals Vital Signs Date Time Temp Pulse Resp B/P Pulse Ox O2 Delivery O2 Flow Rate FiO2 08/06/16 08:00 98.1 64 20 87/58 99 08/05/16 20:00 98.0 66 22 100/69 98 I/O 08/05/16 08/05/16 08/05/16 08/06/16 08/06/16 08/06/16 07:00 15:00 23:00 07:00 15:00 23:00 Intake Total 120 ml 600 ml 240 ml Output Total 1 ml Balance 120 ml 599 ml 240 ml Intake Oral 120 ml 600 ml 240 ml Stool Total 1 ml # Voids 1 3 2 # Bowel Movements 1 Objective Remarks GENERAL: Well-developed, well-nourished, in no acute distress. Urinary Catheter: No Vascular Central Line Catheter: No A/P Assessment and Plan Medical Noncompliance: Patient is refusing all medical care this time to include life-saving medications, physical therapy, occupational therapy, refusing to ambulate. Patient is not allowing medical staff to perform their duties and protect her from harm and prevent her from having significant life-threatening medical complications Discussed with palliative care physician Dr. Riddle, he states that he is familiar with this patient. He indicates that patient may need to have further evaluation for competency since the patient is clearly indicating that she does not have a condition or conditions that have been objectively identified and patient has been counseled extensively on. He indicates that we'll need to get case management and legals involved for appropriate management of this patient. From medical standpoint there is nothing else that medical service can offer due to the patient's noncompliance, unwilling to participate in patient care. We'll continue to defer evaluation and recommendations to psychiatry and case management Discuss with neuro psychiatrist, he indicated that he evaluated patient states that patient has had a significant change in her psychiatric illness and personalities/attitude. He does not feel that the patient is capable of making her own decisions and requests psychiatry reevaluated the patient to start treating the patient for her underlying psychiatric illness Psychiatry reevaluated the patient and does agree with neuro psychologist. At this point it was indicated patient does not have capacity make appropriate judgments concerning her treatment. He feels that appointment of a healthcare surrogate would be appropriate. Psychiatry reevaluated patient and indicated that patient is unable to make her own decisions and healthcare by proxy which is her mother should be the one making medical decisions for her. 08/05/16: Meeting with Tyson saloni, patient, myself, nursing who notified patient that her mother is now making her medical decisions. Patient was not too thrilled about that situation. Patient still refusing MRI studies Bilateral Lower Extremity Weakness, Difficulty w/Ambulation: Subjective. Patient refusing workup and treatment Cervical CT, lumbar CT scans were performed which did not indicate any acute abnormality which would indicate bilateral lower extremity weakness. Patient is refusing PT/OT evaluations Patient refused lumbar puncture for further evaluation. Patient will not undergo MRI study Neurology Dr. Nelson, has evaluated the patient does not have any etiology of the patient's lower extremity weakness. He is recommending angiography of the lumbar spine because of her hypercoagulability state from the recent saddle emboli, however radiologist does not perform any angiography of the spine. Radiologist recommended MRI study of the thoracic and lumbar spine. However, patient was not able to perform MRI study yesterday and refuses to have it done. Neurology indicated that there is nothing else they can offer from a neurological standpoint to contribute to the patient's possible etiologies. He indicated that he will sign off and defer continue management to medical team MRI of thoracic and lumbar spine has been requested Subacute Pulmonary Embolism 06/08/16 with Subtherapeutic INR: Patient refusing treatment during previous hospitalization, patient refused TPA, V/Q scan was performed which could not rule out the possibility of emboli Patient refusing Lovenox/Coumadin Patient indicates that she was told that she does not have any blood clots Patient was given copy of recent CTA for confirmation of her blood clot, however, patient states that that is not her It was discussed with the patient extensively that without anticoagulation she is at increased risk of embolic events to include worsening pulmonary emboli, stroke, . Palliative care was consulted for recommendations. Repeat CTA has been ordered to evaluate for residual pulmonary emboli Selective Mutism with Paranoid Schizophrenia: chronic, Patient has been evaluated by psychiatry, Psychiatry reconsulted due to the patient refusing medical care. As indicated by psychiatry the patient has full capacity to make her own medical decisions she is alert and orientated. 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 Refusal of speaking with caregivers about her condition. Likely need evaluation for competency. Patient will likely need inpatient psychiatric management Psychiatry did reevaluated the patient however patient would not let psychiatrist lab coordinator or examine her. Psychiatrist referred back to previous notes indicate that patient has at least some degree of capacity. Psychiatrist is recommending that patient be evaluated by ethics committee Candidal intertrigo: under bilateral breasts. Patient refusing Nystatin powder. DVT Prophylaxis: Patient refusing Coumadin/Lovenox Records were reviewed, is absolutely no change in this patient's treatment plan , don't foresee any changes anytime soon until risk, ethics, case management is able to figure out exactly what we can do with this patient Discharge Planning Unable to determine discharge planning this time as patient was refusing all medical treatment, management, therapies. Case management consulted for possible administration evaluation with ethics, legal. manager pricing's note from 08/01/16 indicates that he has spoken with patient's mother who agreed to assist in medical decision-making and assist change healthcare to get Medicaid reinstated. Steven Mccray Aug 06, 2016 11:41
[2016-08-06 20:00] VITALS: BP 104/67; PULSE 71; RESP 20; TEMP 97.7; O2SAT 96
[2016-08-07 08:00] VITALS: BP 89/66; PULSE 61; RESP 20; TEMP 97.6; O2SAT 99
[2016-08-07] MEDS: NYSTATIN 100,000 U/GM PWD 15 GM BTL TOPICAL SCH ×2 (09:00→20:35)
[2016-08-07] MEDS: SODIUM CHLORIDE 0.9% FLUSH 10 ML FLUSH IV FLUSH SCH ×2 (09:00→20:33)
--- NOTE | 2016-08-07 10:08 | HHI.PR ---
Subjective Remarks Patient seen and examined today with nurse present for follow-up on noncompliance and lower extremity weakness. Again notified the patient that she needs to undergo CT scan and MRI study as recommended for continued management. Patient states that she has agreed to do the CT scan that Dr. Nelson ordered, but only at the main hospital. I informed her that Dr. Nelson is no longer following her in the hospital and that we need his other studies to evaluate her. Patient continues to be argumentative with writing about Dr. Nelson and what she is going to do and not going to do. Objective Vitals Vital Signs Date Time Temp Pulse Resp B/P Pulse Ox O2 Delivery O2 Flow Rate FiO2 08/07/16 08:00 97.6 61 20 89/66 99 08/06/16 20:00 97.7 71 20 104/67 96 I/O 08/06/16 08/06/16 08/06/16 08/07/16 08/07/16 08/07/16 07:00 15:00 23:00 07:00 15:00 23:00 Intake Total 480 ml 480 ml Balance 480 ml 480 ml Intake Oral 480 ml 480 ml # Voids 1 2 # Bowel Movements 1 1 Objective Remarks GENERAL: Well-developed, well-nourished, in no acute distress. Urinary Catheter: No Vascular Central Line Catheter: No A/P Assessment and Plan Medical Noncompliance: Patient is refusing all medical care this time to include life-saving medications, physical therapy, occupational therapy, refusing to ambulate. Patient is not allowing medical staff to perform their duties and protect her from harm and prevent her from having significant life-threatening medical complications Discussed with palliative care physician Dr. Riddle, he states that he is familiar with this patient. He indicates that patient may need to have further evaluation for competency since the patient is clearly indicating that she does not have a condition or conditions that have been objectively identified and patient has been counseled extensively on. He indicates that we'll need to get case management and legals involved for appropriate management of this patient. From medical standpoint there is nothing else that medical service can offer due to the patient's noncompliance, unwilling to participate in patient care. We'll continue to defer evaluation and recommendations to psychiatry and case management Discuss with neuro psychiatrist, he indicated that he evaluated patient states that patient has had a significant change in her psychiatric illness and personalities/attitude. He does not feel that the patient is capable of making her own decisions and requests psychiatry reevaluated the patient to start treating the patient for her underlying psychiatric illness Psychiatry reevaluated the patient and does agree with neuro psychologist. At this point it was indicated patient does not have capacity make appropriate judgments concerning her treatment. He feels that appointment of a healthcare surrogate would be appropriate. Psychiatry reevaluated patient and indicated that patient is unable to make her own decisions and healthcare by proxy which is her mother should be the one making medical decisions for her. 08/05/16: Meeting with Tyson saloni, patient, myself, nursing who notified patient that her mother is now making her medical decisions. Patient was not too thrilled about that situation. Patient still refusing MRI and CT studies Bilateral Lower Extremity Weakness, Difficulty w/Ambulation: Subjective. Patient refusing workup and treatment Cervical CT, lumbar CT scans were performed which did not indicate any acute abnormality which would indicate bilateral lower extremity weakness. Patient is refusing PT/OT evaluations Patient refused lumbar puncture for further evaluation. Patient will not undergo MRI study Neurology Dr. Nelson, has evaluated the patient does not have any etiology of the patient's lower extremity weakness. He is recommending angiography of the lumbar spine because of her hypercoagulability state from the recent saddle emboli, however radiologist does not perform any angiography of the spine. Radiologist recommended MRI study of the thoracic and lumbar spine. However, patient was not able to perform MRI study yesterday and refuses to have it done. Neurology indicated that there is nothing else they can offer from a neurological standpoint to contribute to the patient's possible etiologies. He indicated that he will sign off and defer continue management to medical team MRI of thoracic and lumbar spine has been requested Subacute Pulmonary Embolism 06/08/16 with Subtherapeutic INR: Patient refusing treatment during previous hospitalization, patient refused TPA, V/Q scan was performed which could not rule out the possibility of emboli Patient refusing Lovenox/Coumadin Patient indicates that she was told that she does not have any blood clots Patient was given copy of recent CTA for confirmation of her blood clot, however, patient states that that is not her It was discussed with the patient extensively that without anticoagulation she is at increased risk of embolic events to include worsening pulmonary emboli, stroke, . Palliative care was consulted for recommendations. Repeat CTA has been ordered to evaluate for residual pulmonary emboli Selective Mutism with Paranoid Schizophrenia: chronic, Patient has been evaluated by psychiatry, Psychiatry reconsulted due to the patient refusing medical care. As indicated by psychiatry the patient has full capacity to make her own medical decisions she is alert and orientated. 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 Refusal of speaking with caregivers about her condition. Likely need evaluation for competency. Patient will likely need inpatient psychiatric management Psychiatry did reevaluated the patient however patient would not let psychiatrist golf course architect or examine her. Psychiatrist referred back to previous notes indicate that patient has at least some degree of capacity. Psychiatrist is recommending that patient be evaluated by ethics committee Candidal intertrigo: under bilateral breasts. Patient refusing Nystatin powder. DVT Prophylaxis: Patient refusing Coumadin/Lovenox Records were reviewed, is absolutely no change in this patient's treatment plan , don't foresee any changes anytime soon until risk, ethics, case management is able to figure out exactly what we can do with this patient Discharge Planning Unable to determine discharge planning this time as patient was refusing all medical treatment, management, therapies. Case management consulted for possible administration evaluation with ethics, legal. horticultural manager's note from 08/01/16 indicates that he has spoken with patient's mother who agreed to assist in medical decision-making and assist change healthcare to get Medicaid reinstated. Steven Mccray Aug 07, 2016 10:08
[2016-08-07 20:00] VITALS: BP 106/72; PULSE 62; RESP 20; TEMP 97.3; O2SAT 98
[2016-08-08 08:00] VITALS: BP 101/69; PULSE 56; RESP 18; TEMP 97.6; O2SAT 97
[2016-08-08] MEDS: SODIUM CHLORIDE 0.9% FLUSH 10 ML FLUSH IV FLUSH SCH ×2 (09:00→20:54)
[2016-08-08] MEDS: NYSTATIN 100,000 U/GM PWD 15 GM BTL TOPICAL SCH ×2 (09:00→21:04)
--- NOTE | 2016-08-08 10:59 | HHI.PR ---
Subjective Remarks Patient seen and examined today with nurse present for follow-up on noncompliance, long-standing weakness. Patient sitting up in bed. Denies any new complaints. When asked if she is going to get up and walk with physical therapy she just gave me a blank stare Objective Vitals Vital Signs Date Time Temp Pulse Resp B/P Pulse Ox O2 Delivery O2 Flow Rate FiO2 08/07/16 20:00 97.3 62 20 106/72 98 I/O 08/07/16 08/07/16 08/07/16 08/08/16 08/08/16 08/08/16 07:00 15:00 23:00 07:00 15:00 23:00 Intake Total 480 ml 690 ml 480 ml 480 ml Balance 480 ml 690 ml 480 ml 480 ml Intake Oral 480 ml 690 ml 480 ml 480 ml # Voids 2 2 2 # Bowel Movements 1 1 1 Objective Remarks GENERAL: Well-developed, well-nourished, in no acute distress. Urinary Catheter: No Vascular Central Line Catheter: No A/P Assessment and Plan Medical Noncompliance: Patient is refusing all medical care this time to include life-saving medications, physical therapy, occupational therapy, refusing to ambulate. Patient is not allowing medical staff to perform their duties and protect her from harm and prevent her from having significant life-threatening medical complications Discussed with palliative care physician Dr. Riddle, he states that he is familiar with this patient. He indicates that patient may need to have further evaluation for competency since the patient is clearly indicating that she does not have a condition or conditions that have been objectively identified and patient has been counseled extensively on. He indicates that we'll need to get case management and legals involved for appropriate management of this patient. From medical standpoint there is nothing else that medical service can offer due to the patient's noncompliance, unwilling to participate in patient care. We'll continue to defer evaluation and recommendations to psychiatry and case management Discuss with neuro psychiatrist, he indicated that he evaluated patient states that patient has had a significant change in her psychiatric illness and personalities/attitude. He does not feel that the patient is capable of making her own decisions and requests psychiatry reevaluated the patient to start treating the patient for her underlying psychiatric illness Psychiatry reevaluated the patient and does agree with neuro psychologist. At this point it was indicated patient does not have capacity make appropriate judgments concerning her treatment. He feels that appointment of a healthcare surrogate would be appropriate. Psychiatry reevaluated patient and indicated that patient is unable to make her own decisions and healthcare by proxy which is her mother should be the one making medical decisions for her. 08/05/16: Meeting with Tyson saloni, patient, myself, nursing who notified patient that her mother is now making her medical decisions. Patient was not too thrilled about that situation. Patient still refusing MRI and CT studies Bilateral Lower Extremity Weakness, Difficulty w/Ambulation: Subjective. Patient refusing workup and treatment Cervical CT, lumbar CT scans were performed which did not indicate any acute abnormality which would indicate bilateral lower extremity weakness. Patient is refusing PT/OT evaluations Patient refused lumbar puncture for further evaluation. Patient will not undergo MRI study Neurology Dr. Nelson, has evaluated the patient does not have any etiology of the patient's lower extremity weakness. He is recommending angiography of the lumbar spine because of her hypercoagulability state from the recent saddle emboli, however radiologist does not perform any angiography of the spine. Radiologist recommended MRI study of the thoracic and lumbar spine. However, patient was not able to perform MRI study yesterday and refuses to have it done. Neurology indicated that there is nothing else they can offer from a neurological standpoint to contribute to the patient's possible etiologies. He indicated that he will sign off and defer continue management to medical team MRI of thoracic and lumbar spine has been requested Subacute Pulmonary Embolism 06/08/16 with Subtherapeutic INR: Patient refusing treatment during previous hospitalization, patient refused TPA, V/Q scan was performed which could not rule out the possibility of emboli Patient refusing Lovenox/Coumadin Patient indicates that she was told that she does not have any blood clots Patient was given copy of recent CTA for confirmation of her blood clot, however, patient states that that is not her It was discussed with the patient extensively that without anticoagulation she is at increased risk of embolic events to include worsening pulmonary emboli, stroke, . Palliative care was consulted for recommendations. Repeat CTA has been ordered to evaluate for residual pulmonary emboli Selective Mutism with Paranoid Schizophrenia: chronic, Patient has been evaluated by psychiatry, Psychiatry reconsulted due to the patient refusing medical care. As indicated by psychiatry the patient has full capacity to make her own medical decisions she is alert and orientated. 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 Refusal of speaking with caregivers about her condition. Likely need evaluation for competency. Patient will likely need inpatient psychiatric management Psychiatry did reevaluated patient however patient would not let psychiatrist glass mechanic or examine her. Psychiatrist referred back to previous notes indicate that patient has at least some degree of capacity. Psychiatrist is recommending that patient be evaluated by ethics committee Candidal intertrigo: under bilateral breasts. Nystatin powder. DVT Prophylaxis: Patient refusing Coumadin/Lovenox Records were reviewed, there is absolutely no change in this patient's treatment plan, don't foresee any changes anytime soon until risk, ethics, case management is able to figure out exactly what we can do with this patient Discharge Planning Unable to determine discharge planning this time as patient was refusing all medical treatment, management, therapies. Case management consulted for possible administration evaluation with ethics, legal. payment manager's note from 08/01/16 indicates that he has spoken with patient's mother who agreed to assist in medical decision-making and assist change healthcare to get Medicaid reinstated. Steven Mccray Aug 08, 2016 10:59
[2016-08-08 20:00] VITALS: BP 96/66; PULSE 57; RESP 21; TEMP 98; O2SAT 97
[2016-08-09 08:00] VITALS: BP 92/64; PULSE 55; RESP 18; TEMP 97; O2SAT 100
[2016-08-09] MEDS: NYSTATIN 100,000 U/GM PWD 15 GM BTL TOPICAL SCH ×2 (08:15→20:14)
[2016-08-09] MEDS: SODIUM CHLORIDE 0.9% FLUSH 10 ML FLUSH IV FLUSH SCH ×2 (08:15→20:13)
--- NOTE | 2016-08-09 10:25 | HHI.PR ---
Subjective Remarks Follow-up for bilateral lower extremity weakness, medication non-compliance for PE. Review. Patient indicates with hand signal that she is okay. Denies acute issues overnight. Denies shortness of breath. Objective Vitals Vital Signs Date Time Temp Pulse Resp B/P Pulse Ox O2 Delivery O2 Flow Rate FiO2 08/08/16 20:00 98.0 57 21 96/66 97 I/O 08/08/16 08/08/16 08/08/16 08/09/16 08/09/16 08/09/16 07:00 15:00 23:00 07:00 15:00 23:00 Intake Total 480 ml 240 ml 240 ml Balance 480 ml 240 ml 240 ml Intake Oral 480 ml 240 ml 240 ml # Voids 2 1 2 # Bowel Movements 1 2 Objective Remarks GENERAL: Well-developed patient in apparent distress. CARDIOVASCULAR: Normal rate and regular rhythm. RESPIRATORY: No accessory muscle use. CTAB. NEUROLOGICAL: Awake and alert. PSYCHIATRIC: Mute. Urinary Catheter: No Vascular Central Line Catheter: No A/P Assessment and Plan Medical Noncompliance: Patient is refusing all medical care this time to include life-saving medications, physical therapy, occupational therapy, refusing to ambulate. Patient is not allowing medical staff to perform their duties and protect her from harm and prevent her from having significant life-threatening medical complications Discussed with palliative care physician Dr. Riddle, he states that he is familiar with this patient. He indicates that patient may need to have further evaluation for competency since the patient is clearly indicating that she does not have a condition or conditions that have been objectively identified and patient has been counseled extensively on. He indicates that we'll need to get case management and legals involved for appropriate management of this patient. From medical standpoint there is nothing else that medical service can offer due to the patient's noncompliance, unwilling to participate in patient care. We'll continue to defer evaluation and recommendations to psychiatry and case management Discuss with neuro psychiatrist, he indicated that he evaluated patient states that patient has had a significant change in her psychiatric illness and personalities/attitude. He does not feel that the patient is capable of making her own decisions and requests psychiatry reevaluated the patient to start treating the patient for her underlying psychiatric illness Psychiatry reevaluated the patient and does agree with neuro psychologist. At this point it was indicated patient does not have capacity make appropriate judgments concerning her treatment. He feels that appointment of a healthcare surrogate would be appropriate. Psychiatry reevaluated patient and indicated that patient is unable to make her own decisions and healthcare by proxy which is her mother should be the one making medical decisions for her. Patient still refusing MRI and CT studies Bilateral Lower Extremity Weakness, Difficulty w/Ambulation: Subjective. Cervical CT, lumbar CT scans were performed which did not indicate any acute abnormality which would indicate bilateral lower extremity weakness. Patient is refusing PT/OT evaluations Patient refused lumbar puncture for further evaluation. Patient will not undergo MRI study Neurology Dr. Nelson, has evaluated the patient does not have any etiology of the patient's lower extremity weakness. He is recommending angiography of the lumbar spine because of her hypercoagulability state from the recent saddle emboli, however radiologist does not perform any angiography of the spine. Radiologist recommended MRI study of the thoracic and lumbar spine. However, patient was not able to perform MRI study yesterday and refuses to have it done. Neurology indicated that there is nothing else they can offer from a neurological standpoint to contribute to the patient's possible etiologies. He indicated that he will sign off and defer continue management to medical team MRI of thoracic and lumbar spine has been requested, but patient refusing workup and treatment Subacute Pulmonary Embolism 06/08/16 with Subtherapeutic INR: Patient refusing treatment during previous hospitalization, patient refused TPA, V/Q scan was performed which could not rule out the possibility of emboli Patient refusing Lovenox/Coumadin Patient indicates that she was told that she does not have any blood clots Patient was given copy of recent CTA for confirmation of her blood clot, however, patient states that that is not her It was discussed with the patient extensively that without anticoagulation she is at increased risk of embolic events to include worsening pulmonary emboli, stroke, . Palliative care was consulted for recommendations. Repeat CTA has been ordered to evaluate for residual pulmonary emboli Selective Mutism with Paranoid Schizophrenia: chronic, Patient has been evaluated by psychiatry, Psychiatry reconsulted due to the patient refusing medical care. As indicated by psychiatry the patient has full capacity to make her own medical decisions she is alert and orientated. 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 Refusal of speaking with caregivers about her condition. Likely need evaluation for competency. Patient will likely need inpatient psychiatric management Psychiatry did reevaluated patient however patient would not let psychiatrist skilled nursing case manager or examine her. Psychiatrist referred back to previous notes indicate that patient has at least some degree of capacity. Psychiatrist is recommending that patient be evaluated by ethics committee Candidal intertrigo: under bilateral breasts. Nystatin powder. DVT Prophylaxis: Patient refusing Coumadin/Lovenox Discharge Planning 08/05: Mother is medical decision maker. Awaiting getting Medicaid reinstated. Sneha Choi Aug 09, 2016 10:25
[2016-08-09 20:00] VITALS: BP 106/62; PULSE 60; RESP 21; TEMP 97.4; O2SAT 97
[2016-08-10 08:00] VITALS: BP 105/66; PULSE 64; RESP 18; TEMP 96.6; O2SAT 100
[2016-08-10] MEDS: NYSTATIN 100,000 U/GM PWD 15 GM BTL TOPICAL SCH ×2 (09:00→21:00)
[2016-08-10] MEDS: SODIUM CHLORIDE 0.9% FLUSH 10 ML FLUSH IV FLUSH SCH ×2 (09:00→20:35)
[2016-08-10] MEDS ORDERED: ONDANSETRON HCL 4 MG/2 ML VIAL IVP PRN (09:30)
--- NOTE | 2016-08-10 11:08 | HHI.PR ---
Subjective Remarks Follow-up for bilateral lower extremity weakness, medication non-compliance for PE. Objective Vitals Vital Signs Date Time Temp Pulse Resp B/P Pulse Ox O2 Delivery O2 Flow Rate FiO2 08/10/16 08:00 96.6 64 18 105/66 100 08/09/16 20:00 97.4 60 21 106/62 97 I/O 08/09/16 08/09/16 08/09/16 08/10/16 08/10/16 08/10/16 07:00 15:00 23:00 07:00 15:00 23:00 Intake Total 240 ml 600 ml 120 ml 360 ml Balance 240 ml 600 ml 120 ml 360 ml Intake Oral 240 ml 600 ml 120 ml 360 ml # Voids 2 1 2 # Bowel Movements 2 1 2 Objective Remarks GENERAL: Well-developed patient in apparent distress. CARDIOVASCULAR: Normal rate and regular rhythm. RESPIRATORY: No accessory muscle use. CTAB. NEUROLOGICAL: Sleeping but awakens for exam. PSYCHIATRIC: Mute. Urinary Catheter: No Vascular Central Line Catheter: No A/P Assessment and Plan 08/10: On 08/01/16 it was made clear by psychiatry that the patient does not have medical decision-making capacity and her mother will be making her medical decisions for her. Imaging studies were ordered and nurses were advised that they could place IV even if patient refused and Ativan could be given to relax patient for testing as approved by her mother. Apparently the tests were never performed because the patient continued to refuse even though staff was made aware that she cannot refuse. This is discussed with the bilingual patient support caseworker today. Will further discuss this with attending tomorrow. Medical Noncompliance: Patient is refusing all medical care this time to include life-saving medications, physical therapy, occupational therapy, refusing to ambulate. Patient is not allowing medical staff to perform their duties and protect her from harm and prevent her from having significant life-threatening medical complications Discussed with palliative care physician Dr. Riddle, he states that he is familiar with this patient. He indicates that patient may need to have further evaluation for competency since the patient is clearly indicating that she does not have a condition or conditions that have been objectively identified and patient has been counseled extensively on. He indicates that we'll need to get case management and legals involved for appropriate management of this patient. From medical standpoint there is nothing else that medical service can offer due to the patient's noncompliance, unwilling to participate in patient care. We'll continue to defer evaluation and recommendations to psychiatry and case management Discuss with neuro psychiatrist, he indicated that he evaluated patient states that patient has had a significant change in her psychiatric illness and personalities/attitude. He does not feel that the patient is capable of making her own decisions and requests psychiatry reevaluated the patient to start treating the patient for her underlying psychiatric illness Psychiatry reevaluated the patient and does agree with neuro psychologist. At this point it was indicated patient does not have capacity make appropriate judgments concerning her treatment. He feels that appointment of a healthcare surrogate would be appropriate. Psychiatry reevaluated patient and indicated that patient is unable to make her own decisions and healthcare by proxy which is her mother should be the one making medical decisions for her. Bilateral Lower Extremity Weakness, Difficulty w/Ambulation: Subjective. Cervical CT, lumbar CT scans were performed which did not indicate any acute abnormality which would indicate bilateral lower extremity weakness. Patient is refusing PT/OT evaluations Patient refused lumbar puncture for further evaluation. Patient will not undergo MRI study Neurology Dr. Nelson, has evaluated the patient does not have any etiology of the patient's lower extremity weakness. He is recommending angiography of the lumbar spine because of her hypercoagulability state from the recent saddle emboli, however radiologist does not perform any angiography of the spine. Radiologist recommended MRI study of the thoracic and lumbar spine. However, patient was not able to perform MRI study yesterday and refuses to have it done. Neurology indicated that there is nothing else they can offer from a neurological standpoint to contribute to the patient's possible etiologies. He indicated that he will sign off and defer continue management to medical team MRI of thoracic and lumbar spine has been requested. Subacute Pulmonary Embolism 06/08/16 with Subtherapeutic INR: Patient refusing treatment during previous hospitalization, patient refused TPA, V/Q scan was performed which could not rule out the possibility of emboli Patient refusing Lovenox/Coumadin Patient indicates that she was told that she does not have any blood clots Patient was given copy of recent CTA for confirmation of her blood clot, however, patient states that that is not her It was discussed with the patient extensively that without anticoagulation she is at increased risk of embolic events to include worsening pulmonary emboli, stroke, . Palliative care was consulted for recommendations. Repeat CTA has been ordered to evaluate for residual pulmonary emboli. Selective Mutism with Paranoid Schizophrenia: chronic, Patient has been evaluated by psychiatry and indicates patient does not have decision making capacity to refuse treatment at this moment. Candidal intertrigo: under bilateral breasts. Nystatin powder. DVT Prophylaxis: Patient refusing Coumadin/Lovenox Discharge Planning 08/05: Mother is medical decision maker. Awaiting getting Medicaid reinstated. Sneha Choi Aug 10, 2016 11:08
[2016-08-10 20:00] VITALS: BP 93/62; PULSE 63; RESP 20; TEMP 97.6; O2SAT 99
[2016-08-11 08:00] VITALS: BP 96/66; PULSE 57; RESP 20; TEMP 96.5; O2SAT 96
[2016-08-11] MEDS: SODIUM CHLORIDE 0.9% FLUSH 10 ML FLUSH IV FLUSH SCH ×2 (08:37→19:21)
[2016-08-11] MEDS: NYSTATIN 100,000 U/GM PWD 15 GM BTL TOPICAL SCH ×2 (08:38→19:21)
[2016-08-11] MEDS ORDERED: LORazepam 2 MG/ML VIAL IV PUSH PRN (10:30)
--- NOTE | 2016-08-11 10:34 | HHI.PR ---
Subjective Remarks Follow-up for bilateral lower extremity weakness, medication non-compliance for PE. No acute complaints. Objective Vitals Vital Signs Date Time Temp Pulse Resp B/P Pulse Ox O2 Delivery O2 Flow Rate FiO2 08/11/16 08:00 96.5 57 20 96/66 96 08/10/16 20:00 97.6 63 20 93/62 99 I/O 08/10/16 08/10/16 08/10/16 08/11/16 08/11/16 08/11/16 07:00 15:00 23:00 07:00 15:00 23:00 Intake Total 360 ml 930 ml 480 ml 580 ml Balance 360 ml 930 ml 480 ml 580 ml Intake Oral 360 ml 930 ml 480 ml 580 ml # Voids 2 1 1 # Bowel Movements 2 1 1 Objective Remarks GENERAL: Well-developed patient in apparent distress. RESPIRATORY: No accessory muscle use. CTAB. NEUROLOGICAL: Awake and alert. PSYCHIATRIC: Mute. Urinary Catheter: No Vascular Central Line Catheter: No A/P Assessment and Plan 08/10: On 08/01/16 it was made clear by psychiatry that the patient does not have medical decision-making capacity and her mother will be making her medical decisions for her. Imaging studies were ordered and nurses were advised that they could place IV even if patient refused and Ativan could be given to relax patient for testing as approved by her mother. Apparently the tests were never performed because the patient continued to refuse even though staff was made aware that she cannot refuse. This is discussed with the keycase assembler today. Will further discuss this with attending tomorrow. 08/11: Nurse advised that we will proceed with tests. I was informed that charge nurse wants to discuss with [employer] ground crew supervisor regarding policy even though this has already been discussed. Still awaiting tests to be performed. Medical Noncompliance: Patient is refusing all medical care this time to include life-saving medications, physical therapy, occupational therapy, refusing to ambulate. Patient is not allowing medical staff to perform their duties and protect her from harm and prevent her from having significant life-threatening medical complications Discussed with palliative care physician Dr. Riddle, he states that he is familiar with this patient. He indicates that patient may need to have further evaluation for competency since the patient is clearly indicating that she does not have a condition or conditions that have been objectively identified and patient has been counseled extensively on. He indicates that we'll need to get case management and legals involved for appropriate management of this patient. From medical standpoint there is nothing else that medical service can offer due to the patient's noncompliance, unwilling to participate in patient care. We'll continue to defer evaluation and recommendations to psychiatry and case management Discuss with neuro psychiatrist, he indicated that he evaluated patient states that patient has had a significant change in her psychiatric illness and personalities/attitude. He does not feel that the patient is capable of making her own decisions and requests psychiatry reevaluated the patient to start treating the patient for her underlying psychiatric illness Psychiatry reevaluated the patient and does agree with neuro psychologist. At this point it was indicated patient does not have capacity make appropriate judgments concerning her treatment. He feels that appointment of a healthcare surrogate would be appropriate. Psychiatry reevaluated patient and indicated that patient is unable to make her own decisions and healthcare by proxy which is her mother should be the one making medical decisions for her. Bilateral Lower Extremity Weakness, Difficulty w/Ambulation: Subjective. Cervical CT, lumbar CT scans were performed which did not indicate any acute abnormality which would indicate bilateral lower extremity weakness. Patient is refusing PT/OT evaluations Patient refused lumbar puncture for further evaluation. Patient will not undergo MRI study Neurology Dr. Nelson, has evaluated the patient does not have any etiology of the patient's lower extremity weakness. He is recommending angiography of the lumbar spine because of her hypercoagulability state from the recent saddle emboli, however radiologist does not perform any angiography of the spine. Radiologist recommended MRI study of the thoracic and lumbar spine. However, patient was not able to perform MRI study yesterday and refuses to have it done. Neurology indicated that there is nothing else they can offer from a neurological standpoint to contribute to the patient's possible etiologies. He indicated that he will sign off and defer continue management to medical team MRI of thoracic and lumbar spine has been requested. Subacute Pulmonary Embolism 06/08/16 with Subtherapeutic INR: Patient refusing treatment during previous hospitalization, patient refused TPA, V/Q scan was performed which could not rule out the possibility of emboli Patient refusing Lovenox/Coumadin Patient indicates that she was told that she does not have any blood clots Patient was given copy of recent CTA for confirmation of her blood clot, however, patient states that that is not her It was discussed with the patient extensively that without anticoagulation she is at increased risk of embolic events to include worsening pulmonary emboli, stroke, . Palliative care was consulted for recommendations. Repeat CTA has been ordered to evaluate for residual pulmonary emboli. Selective Mutism with Paranoid Schizophrenia: chronic, Patient has been evaluated by psychiatry and indicates patient does not have decision making capacity to refuse treatment at this moment. Candidal intertrigo: under bilateral breasts. Nystatin powder. DVT Prophylaxis: Patient refusing Coumadin/Lovenox Discharge Planning 08/05: Mother is medical decision maker. Awaiting getting Medicaid reinstated. Sneha Choi Aug 11, 2016 10:34
[2016-08-11 20:00] VITALS: BP 99/63; PULSE 67; RESP 20; TEMP 98; O2SAT 96
[2016-08-12 08:00] VITALS: BP 86/69; PULSE 67; RESP 18; TEMP 97.7; O2SAT 95
--- NOTE | 2016-08-12 08:17 | HHI.PR ---
Neuropsych Behavior Behavior: Intact: Impulsive/Agitated, Severe: Cooperative w/ Treatment, Motivation Psychosocial Psychosocial: Severe: Psychosocial, Family/Other Adjustment Progress Notes/Response to Tx Contents of Sessions: Adjustment Time with Patient: 15 minutes Premorbid psychological status Premorbid Cognitive, Emotional and Behavioral Status: Unstable. The patient's past history is relatively unknown except for her long psychiatric history. Behavioral Reactions of Patient and Family/Support System: Unstable. The patient has been homeless for many years. Emotional/Behavioral Status of Patient and Family/Support System: Unstable. Pertinent issues, if appropriate to this patients clinical care, are described in detail above. Maximizing acute care outcome The essential issue presently is that the patient is entirely noncompliant with medical directives. Getting her to consent to treatment, be it either psychiatric or medical, is essential to maximize her care. However, she is unwilling to consent. Anticipated Problems Ongoing areas of concern will include behavioral impulsivity, lack of insight and judgment, which is not expected to improve with time or treatment. Treatment Plan This clinician will continue to follow with you throughout the course of this patients hospitalization, and I will be available to meet with the patients family/support system to facilitate their understanding and the ongoing care of their family member. The goals of neuropsychological intervention shall be both educational and supportive to the family/support system as is deemed clinically appropriate. Impression This 40 year old woman who is well known to me from her previous medical hospitalization for untreated PE, who was at that time was able to become a partner in her own healthcare when provided explanation, now presents with similar significant health concerns, but now exhibits increased paranoid ideation and a refusal to accept medical care for these significant health concerns. Her neurobehavioral change from her first hospitalization to her present hospitalization is striking such that she not only would not acknowledge the prior healthcare relationship she had with this examiner but she would not acknowledge that she is the same individual who was treated for these conditions. It is my clinical opinion that this patient's prior underlying major psychiatric disorder, paranoid schizophrenia, is exacerbated and now interferes from a neurocognitive perspective with her ability to make rational decisions of a legal, financial and medical nature. At this point, she is in my opinion demonstrated the IMPAIRED ability to appreciate a situation and its likely consequences and she demonstrates the IMPAIRED ability to manipulate information rationally. Diagnosis: (1) Paranoid schizophrenia, chronic condition with acute exacerbation Status: Acute (2) Elective mutism Status: Chronic Progress Note Narrative Ongoing follow-up of patient seen bedside, with discussions with YVONNE Wade, Dr. Owen, and nursing staff. The patient remains unchanged from a neurobehavioral standpoint, meaning that she demonstrates elective mutism, noncompliance and oppositional behaviors. However, today she did not throw me out of her room, which can be seen as an improvement. I will continue to follow. Rosalio Jacinto PhD Aug 12, 2016 08:17
[2016-08-12] MEDS: SODIUM CHLORIDE 0.9% FLUSH 10 ML FLUSH IV FLUSH SCH ×2 (09:00→20:36)
[2016-08-12] MEDS: NYSTATIN 100,000 U/GM PWD 15 GM BTL TOPICAL SCH ×2 (09:00→20:36)
--- NOTE | 2016-08-12 10:01 | HHI.PR ---
Subjective Remarks Follow-up for bilateral lower extremity weakness, medication non-compliance for PE. Patient nods her head yes when asked if she is okay. Objective Vitals Vital Signs Date Time Temp Pulse Resp B/P Pulse Ox O2 Delivery O2 Flow Rate FiO2 08/11/16 20:00 98.0 67 20 99/63 96 I/O 08/11/16 08/11/16 08/11/16 08/12/16 08/12/16 08/12/16 06:59 14:59 22:59 06:59 14:59 22:59 Intake Total 580 ml 690 ml 480 ml 480 ml Balance 580 ml 690 ml 480 ml 480 ml Intake Oral 580 ml 690 ml 480 ml 480 ml # Voids 1 2 2 # Bowel Movements 1 1 1 Objective Remarks GENERAL: Well-developed patient in apparent distress. CARDIOVASCULAR: Normal rate and regular rhythm. RESPIRATORY: No accessory muscle use. CTAB. NEUROLOGICAL: Awake and alert. PSYCHIATRIC: Electively mute. Is not wearing sunglasses today. Urinary Catheter: No Vascular Central Line Catheter: No A/P Assessment and Plan 08/10: On 08/01/16 it was made clear by psychiatry that the patient does not have medical decision-making capacity and her mother will be making her medical decisions for her. Imaging studies were ordered and nurses were advised that they could place IV even if patient refused and Ativan could be given to relax patient for testing as approved by her mother. Apparently the tests were never performed because the patient continued to refuse even though staff was made aware that she cannot refuse. This is discussed with the pillowcase folder today. 08/11: Nurse advised that we will proceed with tests. I was informed that charge nurse wants to discuss with supervisor trust accounts regarding policy even though this has already been discussed. Still awaiting tests to be performed. 08/12: RN Armando was able to apply restraints and start IV. Patient started speaking per RN. Patient was given Ativan and taken down to MRI but was not adequately sedated for exam and could not remain still. Had received 2 mg of Ativan, last dose 5 minutes prior to speaking with RN; too soon to administer more. MRI will not be able to be performed at this time. Medical Noncompliance: Patient is refusing all medical care this time to include life-saving medications, physical therapy, occupational therapy, refusing to ambulate. Patient is not allowing medical staff to perform their duties and protect her from harm and prevent her from having significant life-threatening medical complications Discussed with palliative care physician Dr. Riddle, he states that he is familiar with this patient. He indicates that patient may need to have further evaluation for competency since the patient is clearly indicating that she does not have a condition or conditions that have been objectively identified and patient has been counseled extensively on. He indicates that we'll need to get case management and legals involved for appropriate management of this patient. From medical standpoint there is nothing else that medical service can offer due to the patient's noncompliance, unwilling to participate in patient care. We'll continue to defer evaluation and recommendations to psychiatry and case management Discuss with neuro psychiatrist, he indicated that he evaluated patient states that patient has had a significant change in her psychiatric illness and personalities/attitude. He does not feel that the patient is capable of making her own decisions and requests psychiatry reevaluated the patient to start treating the patient for her underlying psychiatric illness Psychiatry reevaluated the patient and does agree with neuro psychologist. At this point it was indicated patient does not have capacity make appropriate judgments concerning her treatment. He feels that appointment of a healthcare surrogate would be appropriate. Psychiatry reevaluated patient and indicated that patient is unable to make her own decisions and healthcare by proxy which is her mother should be the one making medical decisions for her. Bilateral Lower Extremity Weakness, Difficulty w/Ambulation: Subjective. Cervical CT, lumbar CT scans were performed which did not indicate any acute abnormality which would indicate bilateral lower extremity weakness. Patient is refusing PT/OT evaluations Patient refused lumbar puncture for further evaluation. Patient will not undergo MRI study Neurology Dr. Nelson, has evaluated the patient does not have any etiology of the patient's lower extremity weakness. He is recommending angiography of the lumbar spine because of her hypercoagulability state from the recent saddle emboli, however radiologist does not perform any angiography of the spine. Radiologist recommended MRI study of the thoracic and lumbar spine. However, patient was not able to perform MRI study yesterday and refuses to have it done. Neurology indicated that there is nothing else they can offer from a neurological standpoint to contribute to the patient's possible etiologies. He indicated that he will sign off and defer continue management to medical team MRI of thoracic and lumbar spine has been requested. Subacute Pulmonary Embolism 06/08/16 with Subtherapeutic INR: Patient refusing treatment during previous hospitalization, patient refused TPA, V/Q scan was performed which could not rule out the possibility of emboli Patient refusing Lovenox/Coumadin Patient indicates that she was told that she does not have any blood clots Patient was given copy of recent CTA for confirmation of her blood clot, however, patient states that that is not her It was discussed with the patient extensively that without anticoagulation she is at increased risk of embolic events to include worsening pulmonary emboli, stroke, . Palliative care was consulted for recommendations. Repeat CTA has been ordered to evaluate for residual pulmonary emboli. Selective Mutism with Paranoid Schizophrenia: chronic, Patient has been evaluated by psychiatry and indicates patient does not have decision making capacity to refuse treatment at this moment. Candidal intertrigo: under bilateral breasts. Nystatin powder. DVT Prophylaxis: Patient refusing Coumadin/Lovenox Discharge Planning 08/05: Mother is medical decision maker. Awaiting getting Medicaid reinstated. Sneha Choi Aug 12, 2016 10:00
[2016-08-12] MEDS ORDERED: LORazepam 2 MG/ML VIAL IV PUSH PRN ×2 (12:45→15:00)
[2016-08-12 20:17] VITALS: BP 113/73; PULSE 62; RESP 16; TEMP 98.9; O2SAT 97
[2016-08-13 08:00] VITALS: BP 113/69; PULSE 63; RESP 19; TEMP 98; O2SAT 99
[2016-08-13] MEDS: SODIUM CHLORIDE 0.9% FLUSH 10 ML FLUSH IV FLUSH SCH ×2 (08:56→21:44)
[2016-08-13] MEDS: NYSTATIN 100,000 U/GM PWD 15 GM BTL TOPICAL SCH ×2 (08:57→21:00)
--- NOTE | 2016-08-13 09:46 | HHI.PR ---
Subjective Remarks Follow-up for bilateral lower extremity weakness, medication non-compliance for PE. No acute issues. Objective Vitals Vital Signs Date Time Temp Pulse Resp B/P Pulse Ox O2 Delivery O2 Flow Rate FiO2 08/13/16 08:00 98.0 63 19 113/69 99 08/12/16 20:17 98.9 62 16 113/73 97 I/O 08/12/16 08/12/16 08/12/16 08/13/16 08/13/16 08/13/16 07:00 15:00 23:00 07:00 15:00 23:00 Intake Total 480 ml 600 ml Output Total 5 ml Balance 480 ml 595 ml Intake Oral 480 ml 600 ml Output Urine Total 4 ml Stool Total 1 ml # Voids 2 2 1 # Bowel Movements 1 Objective Remarks GENERAL: Well-developed patient in apparent distress. CARDIOVASCULAR: Normal rate and regular rhythm. RESPIRATORY: No accessory muscle use. CTAB. NEUROLOGICAL: Awake and alert. PSYCHIATRIC: Electively mute. Urinary Catheter: No Vascular Central Line Catheter: No A/P Assessment and Plan 08/10: On 08/01/16 it was made clear by psychiatry that the patient does not have medical decision-making capacity and her mother will be making her medical decisions for her. Imaging studies were ordered and nurses were advised that they could place IV even if patient refused and Ativan could be given to relax patient for testing as approved by her mother. Apparently the tests were never performed because the patient continued to refuse even though staff was made aware that she cannot refuse. This is discussed with the case technician today. 08/11: Nurse advised that we will proceed with tests. I was informed that charge nurse wants to discuss with full service supervisor regarding policy even though this has already been discussed. Still awaiting tests to be performed. 08/12: SANDRA Roberts was able to apply restraints and start IV. Patient started speaking per RN. Patient was given Ativan and taken down to MRI but was not adequately sedated for exam and could not remain still. Had received 2 mg of Ativan, last dose 5 minutes prior to speaking with RN; will not administer more as patient is hypotensive today. MRIs will not be able to be performed at this time. Medical Noncompliance: Patient is refusing all medical care this time to include life-saving medications, physical therapy, occupational therapy, refusing to ambulate. Patient is not allowing medical staff to perform their duties and protect her from harm and prevent her from having significant life-threatening medical complications Discussed with palliative care physician Dr. Riddle, he states that he is familiar with this patient. He indicates that patient may need to have further evaluation for competency since the patient is clearly indicating that she does not have a condition or conditions that have been objectively identified and patient has been counseled extensively on. He indicates that we'll need to get case management and legals involved for appropriate management of this patient. From medical standpoint there is nothing else that medical service can offer due to the patient's noncompliance, unwilling to participate in patient care. We'll continue to defer evaluation and recommendations to psychiatry and case management Discuss with neuro psychiatrist, he indicated that he evaluated patient states that patient has had a significant change in her psychiatric illness and personalities/attitude. He does not feel that the patient is capable of making her own decisions and requests psychiatry reevaluated the patient to start treating the patient for her underlying psychiatric illness Psychiatry reevaluated the patient and does agree with neuro psychologist. At this point it was indicated patient does not have capacity make appropriate judgments concerning her treatment. He feels that appointment of a healthcare surrogate would be appropriate. Psychiatry reevaluated patient and indicated that patient is unable to make her own decisions and healthcare by proxy which is her mother should be the one making medical decisions for her. Bilateral Lower Extremity Weakness, Difficulty w/Ambulation: Subjective. Cervical CT, lumbar CT scans were performed which did not indicate any acute abnormality which would indicate bilateral lower extremity weakness. Patient is refusing PT/OT evaluations Patient refused lumbar puncture for further evaluation. Patient will not undergo MRI study Neurology Dr. Nelson, has evaluated the patient does not have any etiology of the patient's lower extremity weakness. He is recommending angiography of the lumbar spine because of her hypercoagulability state from the recent saddle emboli, however radiologist does not perform any angiography of the spine. Radiologist recommended MRI study of the thoracic and lumbar spine. However, patient was not able to perform MRI study yesterday and refuses to have it done. Neurology indicated that there is nothing else they can offer from a neurological standpoint to contribute to the patient's possible etiologies. He indicated that he will sign off and defer continue management to medical team MRI of thoracic and lumbar spine has been requested. Subacute Pulmonary Embolism 06/08/16 with Subtherapeutic INR: Patient refusing treatment during previous hospitalization, patient refused TPA, V/Q scan was performed which could not rule out the possibility of emboli Patient refusing Lovenox/Coumadin Patient indicates that she was told that she does not have any blood clots Patient was given copy of recent CTA for confirmation of her blood clot, however, patient states that that is not her It was discussed with the patient extensively that without anticoagulation she is at increased risk of embolic events to include worsening pulmonary emboli, stroke, . Palliative care was consulted for recommendations. Repeat CTA has been ordered to evaluate for residual pulmonary emboli. Selective Mutism with Paranoid Schizophrenia: chronic, Patient has been evaluated by psychiatry and indicates patient does not have decision making capacity to refuse treatment at this moment. Candidal intertrigo: under bilateral breasts. Nystatin powder. DVT Prophylaxis: Patient refusing Coumadin/Lovenox Discharge Planning 08/05: Mother is medical decision maker. Awaiting getting Medicaid reinstated. Sneha Choi Aug 13, 2016 09:46
[2016-08-13 20:00] VITALS: BP 96/59; PULSE 63; RESP 21; TEMP 97.6; O2SAT 98
[2016-08-14] MEDS: NYSTATIN 100,000 U/GM PWD 15 GM BTL TOPICAL SCH ×2 (09:00→20:27)
[2016-08-14] MEDS: SODIUM CHLORIDE 0.9% FLUSH 10 ML FLUSH IV FLUSH SCH ×2 (09:00→20:27)
--- NOTE | 2016-08-14 09:26 | HHI.PR ---
Subjective Remarks Follow-up for bilateral lower extremity weakness, medication non-compliance for PE. No acute issues. Objective Vitals Vital Signs Date Time Temp Pulse Resp B/P Pulse Ox O2 Delivery O2 Flow Rate FiO2 08/13/16 20:00 97.6 63 21 96/59 98 I/O 08/13/16 08/13/16 08/13/16 08/14/16 08/14/16 08/14/16 07:00 15:00 23:00 07:00 15:00 23:00 Intake Total 360 ml 360 ml Balance 360 ml 360 ml Intake Oral 360 ml 360 ml # Voids 1 2 2 # Bowel Movements 1 2 2 Objective Remarks GENERAL: Well-developed patient in apparent distress. CARDIOVASCULAR: Normal rate and regular rhythm. RESPIRATORY: No accessory muscle use. CTAB. NEUROLOGICAL: Awake and alert. PSYCHIATRIC: Electively mute. Urinary Catheter: No Vascular Central Line Catheter: No A/P Assessment and Plan 08/10: On 08/01/16 it was made clear by psychiatry that the patient does not have medical decision-making capacity and her mother will be making her medical decisions for her. Imaging studies were ordered and nurses were advised that they could place IV even if patient refused and Ativan could be given to relax patient for testing as approved by her mother. Apparently the tests were never performed because the patient continued to refuse even though staff was made aware that she cannot refuse. This is discussed with the outsole caser today. 08/11: Nurse advised that we will proceed with tests. I was informed that charge nurse wants to discuss with oil field pipeline supervisor regarding policy even though this has already been discussed. Still awaiting tests to be performed. 08/12: SANDRA Roberts was able to apply restraints and start IV. Patient started speaking per RN. Patient was given Ativan and taken down to MRI but was not adequately sedated for exam and could not remain still. Had received 2 mg of Ativan, last dose 5 minutes prior to speaking with RN; will not administer more as patient is hypotensive today. MRIs will not be able to be performed at this time. Medical Noncompliance: Patient is refusing all medical care this time to include life-saving medications, physical therapy, occupational therapy, refusing to ambulate. Patient is not allowing medical staff to perform their duties and protect her from harm and prevent her from having significant life-threatening medical complications Discussed with palliative care physician Dr. Ridlde, he states that he is familiar with this patient. He indicates that patient may need to have further evaluation for competency since the patient is clearly indicating that she does not have a condition or conditions that have been objectively identified and patient has been counseled extensively on. He indicates that we'll need to get case management and legals involved for appropriate management of this patient. From medical standpoint there is nothing else that medical service can offer due to the patient's noncompliance, unwilling to participate in patient care. We'll continue to defer evaluation and recommendations to psychiatry and case management Discuss with neuro psychiatrist, he indicated that he evaluated patient states that patient has had a significant change in her psychiatric illness and personalities/attitude. He does not feel that the patient is capable of making her own decisions and requests psychiatry reevaluated the patient to start treating the patient for her underlying psychiatric illness Psychiatry reevaluated the patient and does agree with neuro psychologist. At this point it was indicated patient does not have capacity make appropriate judgments concerning her treatment. He feels that appointment of a healthcare surrogate would be appropriate. Psychiatry reevaluated patient and indicated that patient is unable to make her own decisions and healthcare by proxy which is her mother should be the one making medical decisions for her. Bilateral Lower Extremity Weakness, Difficulty w/Ambulation: Subjective. Cervical CT, lumbar CT scans were performed which did not indicate any acute abnormality which would indicate bilateral lower extremity weakness. Patient is refusing PT/OT evaluations Patient refused lumbar puncture for further evaluation. Patient will not undergo MRI study Neurology Dr. Nelson, has evaluated the patient does not have any etiology of the patient's lower extremity weakness. He is recommending angiography of the lumbar spine because of her hypercoagulability state from the recent saddle emboli, however radiologist does not perform any angiography of the spine. Radiologist recommended MRI study of the thoracic and lumbar spine. However, patient was not able to perform MRI study yesterday and refuses to have it done. Neurology indicated that there is nothing else they can offer from a neurological standpoint to contribute to the patient's possible etiologies. He indicated that he will sign off and defer continue management to medical team MRI of thoracic and lumbar spine has been requested. Subacute Pulmonary Embolism 06/08/16 with Subtherapeutic INR: Patient refusing treatment during previous hospitalization, patient refused TPA, V/Q scan was performed which could not rule out the possibility of emboli Patient refusing Lovenox/Coumadin Patient indicates that she was told that she does not have any blood clots Patient was given copy of recent CTA for confirmation of her blood clot, however, patient states that that is not her It was discussed with the patient extensively that without anticoagulation she is at increased risk of embolic events to include worsening pulmonary emboli, stroke, . Palliative care was consulted for recommendations. Repeat CTA has been ordered to evaluate for residual pulmonary emboli. Selective Mutism with Paranoid Schizophrenia: chronic, Patient has been evaluated by psychiatry and indicates patient does not have decision making capacity to refuse treatment at this moment. Candidal intertrigo: under bilateral breasts. Nystatin powder. DVT Prophylaxis: Patient refusing Coumadin/Lovenox Discharge Planning 08/05: Mother is medical decision maker. Awaiting getting Medicaid reinstated. Sneha Choi Aug 14, 2016 09:25
[2016-08-14 17:09] VITALS: BP 100/69; PULSE 57; RESP 17; TEMP 97; O2SAT 99
[2016-08-14 20:00] VITALS: BP 105/67; PULSE 62; RESP 18; TEMP 98.4; O2SAT 97
[2016-08-15 08:00] VITALS: BP 111/69; PULSE 65; RESP 18; TEMP 97.2; O2SAT 96
[2016-08-15] MEDS: NYSTATIN 100,000 U/GM PWD 15 GM BTL TOPICAL SCH ×2 (08:31→20:44)
[2016-08-15] MEDS: SODIUM CHLORIDE 0.9% FLUSH 10 ML FLUSH IV FLUSH SCH ×2 (08:31→20:46)
--- NOTE | 2016-08-15 10:54 | HHI.PR ---
Subjective Remarks Follow-up for bilateral lower extremity weakness, medication non-compliance for PE. No acute issues. Objective Vitals Vital Signs Date Time Temp Pulse Resp B/P Pulse Ox O2 Delivery O2 Flow Rate FiO2 08/14/16 20:00 98.4 62 18 105/67 97 08/14/16 17:09 97.0 57 17 100/69 99 Manual Cuff/Auscultation I/O 08/14/16 08/14/16 08/14/16 08/15/16 08/15/16 08/15/16 07:00 15:00 23:00 07:00 15:00 23:00 Intake Total 360 ml 1080 ml 240 ml Balance 360 ml 1080 ml 240 ml Intake Oral 360 ml 1080 ml 240 ml # Voids 2 4 1 # Bowel Movements 2 1 1 Objective Remarks GENERAL: Well-developed patient in apparent distress sleeping. CARDIOVASCULAR: Normal rate and regular rhythm. RESPIRATORY: No accessory muscle use. CTAB anteriorly. NEUROLOGICAL: Sleeping but awakens. PSYCHIATRIC: Electively mute. Urinary Catheter: No Vascular Central Line Catheter: No A/P Assessment and Plan 08/10: On 08/01/16 it was made clear by psychiatry that the patient does not have medical decision-making capacity and her mother will be making her medical decisions for her. Imaging studies were ordered and nurses were advised that they could place IV even if patient refused and Ativan could be given to relax patient for testing as approved by her mother. Apparently the tests were never performed because the patient continued to refuse even though staff was made aware that she cannot refuse. This is discussed with the caseworker protective services today. 08/11: Nurse advised that we will proceed with tests. I was informed that charge nurse wants to discuss with supervisor nurse regarding policy even though this has already been discussed. Still awaiting tests to be performed. 08/12: RN Armando was able to apply restraints and start IV. Patient started speaking per RN. Patient was given Ativan and taken down to MRI but was not adequately sedated for exam and could not remain still. Had received 2 mg of Ativan, last dose 5 minutes prior to speaking with RN; will not administer more as patient is hypotensive today. MRIs will not be able to be performed at this time. Medical Noncompliance: Patient is refusing all medical care this time to include life-saving medications, physical therapy, occupational therapy, refusing to ambulate. Patient is not allowing medical staff to perform their duties and protect her from harm and prevent her from having significant life-threatening medical complications Discussed with palliative care physician Dr. Riddle, he states that he is familiar with this patient. He indicates that patient may need to have further evaluation for competency since the patient is clearly indicating that she does not have a condition or conditions that have been objectively identified and patient has been counseled extensively on. He indicates that we'll need to get case management and legals involved for appropriate management of this patient. From medical standpoint there is nothing else that medical service can offer due to the patient's noncompliance, unwilling to participate in patient care. We'll continue to defer evaluation and recommendations to psychiatry and case management Discuss with neuro psychiatrist, he indicated that he evaluated patient states that patient has had a significant change in her psychiatric illness and personalities/attitude. He does not feel that the patient is capable of making her own decisions and requests psychiatry reevaluated the patient to start treating the patient for her underlying psychiatric illness Psychiatry reevaluated the patient and does agree with neuro psychologist. At this point it was indicated patient does not have capacity make appropriate judgments concerning her treatment. He feels that appointment of a healthcare surrogate would be appropriate. Psychiatry reevaluated patient and indicated that patient is unable to make her own decisions and healthcare by proxy which is her mother should be the one making medical decisions for her. Bilateral Lower Extremity Weakness, Difficulty w/Ambulation: Subjective. Cervical CT, lumbar CT scans were performed which did not indicate any acute abnormality which would indicate bilateral lower extremity weakness. Patient is refusing PT/OT evaluations Patient refused lumbar puncture for further evaluation. Patient will not undergo MRI study Neurology Dr. Nelson, has evaluated the patient does not have any etiology of the patient's lower extremity weakness. He is recommending angiography of the lumbar spine because of her hypercoagulability state from the recent saddle emboli, however radiologist does not perform any angiography of the spine. Radiologist recommended MRI study of the thoracic and lumbar spine. However, patient was not able to perform MRI study yesterday and refuses to have it done. Neurology indicated that there is nothing else they can offer from a neurological standpoint to contribute to the patient's possible etiologies. He indicated that he will sign off and defer continue management to medical team MRI of thoracic and lumbar spine has been requested. Subacute Pulmonary Embolism 06/08/16 with Subtherapeutic INR: Patient refusing treatment during previous hospitalization, patient refused TPA, V/Q scan was performed which could not rule out the possibility of emboli Patient refusing Lovenox/Coumadin Patient indicates that she was told that she does not have any blood clots Patient was given copy of recent CTA for confirmation of her blood clot, however, patient states that that is not her It was discussed with the patient extensively that without anticoagulation she is at increased risk of embolic events to include worsening pulmonary emboli, stroke, . Palliative care was consulted for recommendations. Repeat CTA has been ordered to evaluate for residual pulmonary emboli. Selective Mutism with Paranoid Schizophrenia: chronic, Patient has been evaluated by psychiatry and indicates patient does not have decision making capacity to refuse treatment at this moment. Candidal intertrigo: under bilateral breasts. Nystatin powder. DVT Prophylaxis: Patient refusing Coumadin/Lovenox Discharge Planning 08/05: Mother is medical decision maker. Awaiting getting Medicaid reinstated. Sneha Choi Aug 15, 2016 10:54
[2016-08-15 20:00] VITALS: BP 122/65; PULSE 61; RESP 20; TEMP 97.6; O2SAT 96
[2016-08-16 08:00] VITALS: BP 106/71; PULSE 57; RESP 18; TEMP 96; O2SAT 99
[2016-08-16] MEDS: SODIUM CHLORIDE 0.9% FLUSH 10 ML FLUSH IV FLUSH SCH ×2 (08:06→21:00)
[2016-08-16] MEDS: NYSTATIN 100,000 U/GM PWD 15 GM BTL TOPICAL SCH ×2 (08:06→21:00)
--- NOTE | 2016-08-16 11:31 | HHI.PR ---
Subjective Remarks Patient seen and examined today for follow-up on lower extremity weakness. Patient was lying in bed sleeping upon entering the room. Patient awoke, however still will not speak. She is shaking her head now that there are no new problems. Objective Vitals Vital Signs Date Time Temp Pulse Resp B/P Pulse Ox O2 Delivery O2 Flow Rate FiO2 08/16/16 08:00 96.0 57 18 106/71 99 08/15/16 20:00 97.6 61 20 122/65 96 I/O 08/15/16 08/15/16 08/15/16 08/16/16 08/16/16 08/16/16 07:00 15:00 23:00 07:00 15:00 23:00 Intake Total 240 ml 1080 ml 480 ml Balance 240 ml 1080 ml 480 ml Intake Oral 240 ml 1080 ml 480 ml # Voids 1 2 2 # Bowel Movements 1 0 1 Objective Remarks GENERAL: Well-developed, well-nourished, in no acute distress. Urinary Catheter: No Vascular Central Line Catheter: No A/P Assessment and Plan Medical Noncompliance: Patient is refusing all medical care this time to include life-saving medications, physical therapy, occupational therapy, refusing to ambulate. Patient is not allowing medical staff to perform their duties and protect her from harm and prevent her from having significant life-threatening medical complications Discussed with palliative care physician Dr. Riddle, he states that he is familiar with this patient. He indicates that patient may need to have further evaluation for competency since the patient is clearly indicating that she does not have a condition or conditions that have been objectively identified and patient has been counseled extensively on. He indicates that we'll need to get case management and legals involved for appropriate management of this patient. From medical standpoint there is nothing else that medical service can offer due to the patient's noncompliance, unwilling to participate in patient care. We'll continue to defer evaluation and recommendations to psychiatry and case management Discuss with neuro psychiatrist, he indicated that he evaluated patient states that patient has had a significant change in her psychiatric illness and personalities/attitude. He does not feel that the patient is capable of making her own decisions and requests psychiatry reevaluated the patient to start treating the patient for her underlying psychiatric illness Psychiatry reevaluated the patient and does agree with neuro psychologist. At this point it was indicated patient does not have capacity make appropriate judgments concerning her treatment. He feels that appointment of a healthcare surrogate would be appropriate. Psychiatry reevaluated patient and indicated that patient is unable to make her own decisions and healthcare by proxy which is her mother should be the one making medical decisions for her. 08/05/16: Meeting with Tyson saloni, patient, myself, nursing who notified patient that her mother is now making her medical decisions. Patient was not too thrilled about that situation. 08/12/16: Patient was placed in restraints, IV was started, patient was given sufficient amount of sedation, however still was unable to perform MRI testing Bilateral Lower Extremity Weakness, Difficulty w/Ambulation: Subjective. Patient refusing workup and treatment Cervical CT, lumbar CT scans were performed which did not indicate any acute abnormality which would indicate bilateral lower extremity weakness. Patient is refusing PT/OT evaluations Patient refused lumbar puncture for further evaluation. Patient will not undergo MRI study Neurology Dr. Nelson, has evaluated the patient does not have any etiology of the patient's lower extremity weakness. He is recommending angiography of the lumbar spine because of her hypercoagulability state from the recent saddle emboli, however radiologist does not perform any angiography of the spine. Radiologist recommended MRI study of the thoracic and lumbar spine. However, patient was not able to perform MRI study yesterday and refuses to have it done. Neurology indicated that there is nothing else they can offer from a neurological standpoint to contribute to the patient's possible etiologies. He indicated that he will sign off and defer continue management to medical team MRI of thoracic and lumbar spine has been requested Subacute Pulmonary Embolism 06/08/16 with Subtherapeutic INR: Patient refusing treatment during previous hospitalization, patient refused TPA, V/Q scan was performed which could not rule out the possibility of emboli Patient refusing Lovenox/Coumadin Patient indicates that she was told that she does not have any blood clots Patient was given copy of recent CTA for confirmation of her blood clot, however, patient states that that is not her It was discussed with the patient extensively that without anticoagulation she is at increased risk of embolic events to include worsening pulmonary emboli, stroke, . Palliative care was consulted for recommendations. Repeat CTA has been ordered to evaluate for residual pulmonary emboli Selective Mutism with Paranoid Schizophrenia: chronic, Patient has been evaluated by psychiatry, Psychiatry reconsulted due to the patient refusing medical care. As indicated by psychiatry the patient has full capacity to make her own medical decisions she is alert and orientated. 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 Refusal of speaking with caregivers about her condition. Likely need evaluation for competency. Patient will likely need inpatient psychiatric management Psychiatry did reevaluated patient however patient would not let psychiatrist intranet developer or examine her. Psychiatrist referred back to previous notes indicate that patient has at least some degree of capacity. Psychiatrist is recommending that patient be evaluated by ethics committee Candidal intertrigo: under bilateral breasts. Nystatin powder. DVT Prophylaxis: Patient refusing Coumadin/Lovenox Discharge Planning Unable to determine discharge planning this time as patient was refusing all medical treatment, management, therapies. Case management consulted for possible administration evaluation with ethics, legal. reimbursement manager's note from 08/01/16 indicates that he has spoken with patient's mother who agreed to assist in medical decision-making and assist change healthcare to get Medicaid reinstated. Steven Mccray Aug 16, 2016 11:31
[2016-08-16 20:00] VITALS: BP 101/63; PULSE 61; RESP 16; TEMP 98.2; O2SAT 98
[2016-08-17 08:00] VITALS: BP 98/69; PULSE 55; RESP 18; TEMP 97.7; O2SAT 99
[2016-08-17] MEDS: NYSTATIN 100,000 U/GM PWD 15 GM BTL TOPICAL SCH ×2 (08:36→21:00)
[2016-08-17] MEDS: SODIUM CHLORIDE 0.9% FLUSH 10 ML FLUSH IV FLUSH SCH ×2 (08:36→21:00)
--- NOTE | 2016-08-17 12:56 | HHI.PR ---
Subjective Remarks Patient seen and examined today for follow-up on noncompliance and subjective lower extremity weakness. Patient lying in bed, patient continues not to speak. Patient is not acknowledging or responding to any questions despite the fact that if you shake her, she does startle and she is awake. However she pretends to be sleeping Objective Vitals Vital Signs Date Time Temp Pulse Resp B/P Pulse Ox O2 Delivery O2 Flow Rate FiO2 08/17/16 08:00 97.7 55 18 98/69 99 08/16/16 20:00 98.2 61 16 101/63 98 I/O 08/16/16 08/16/16 08/16/16 08/17/16 08/17/16 08/17/16 07:00 15:00 23:00 07:00 15:00 23:00 Intake Total 480 ml 1275 ml 480 ml 480 ml Balance 480 ml 1275 ml 480 ml 480 ml Intake Oral 480 ml 1275 ml 480 ml 480 ml # Voids 2 2 2 # Bowel Movements 1 1 1 Objective Remarks GENERAL: Well-developed, well-nourished, in no acute distress. Urinary Catheter: No Vascular Central Line Catheter: No A/P Assessment and Plan Medical Noncompliance: Patient is refusing all medical care this time to include life-saving medications, physical therapy, occupational therapy, refusing to ambulate. Patient is not allowing medical staff to perform their duties and protect her from harm and prevent her from having significant life-threatening medical complications Discussed with palliative care physician Dr. Riddle, he states that he is familiar with this patient. He indicates that patient may need to have further evaluation for competency since the patient is clearly indicating that she does not have a condition or conditions that have been objectively identified and patient has been counseled extensively on. He indicates that we'll need to get case management and legals involved for appropriate management of this patient. From medical standpoint there is nothing else that medical service can offer due to the patient's noncompliance, unwilling to participate in patient care. We'll continue to defer evaluation and recommendations to psychiatry and case management Discuss with neuro psychiatrist, he indicated that he evaluated patient states that patient has had a significant change in her psychiatric illness and personalities/attitude. He does not feel that the patient is capable of making her own decisions and requests psychiatry reevaluated the patient to start treating the patient for her underlying psychiatric illness Psychiatry reevaluated the patient and does agree with neuro psychologist. At this point it was indicated patient does not have capacity make appropriate judgments concerning her treatment. He feels that appointment of a healthcare surrogate would be appropriate. Psychiatry reevaluated patient and indicated that patient is unable to make her own decisions and healthcare by proxy which is her mother should be the one making medical decisions for her. 08/05/16: Meeting with Tyson guallpa, patient, myself, nursing who notified patient that her mother is now making her medical decisions. Patient was not too thrilled about that situation. 08/12/16: Patient was placed in restraints, IV was started, patient was given sufficient amount of sedation, however still was unable to perform MRI testing Bilateral Lower Extremity Weakness, Difficulty w/Ambulation: Subjective. Patient refusing workup and treatment Cervical CT, lumbar CT scans were performed which did not indicate any acute abnormality which would indicate bilateral lower extremity weakness. Patient is refusing PT/OT evaluations Patient refused lumbar puncture for further evaluation. Patient will not undergo MRI study Neurology Dr. Nelson, has evaluated the patient does not have any etiology of the patient's lower extremity weakness. He is recommending angiography of the lumbar spine because of her hypercoagulability state from the recent saddle emboli, however radiologist does not perform any angiography of the spine. Radiologist recommended MRI study of the thoracic and lumbar spine. However, patient was not able to perform MRI study yesterday and refuses to have it done. Neurology indicated that there is nothing else they can offer from a neurological standpoint to contribute to the patient's possible etiologies. He indicated that he will sign off and defer continue management to medical team MRI of thoracic and lumbar spine has been requested Subacute Pulmonary Embolism 06/08/16 with Subtherapeutic INR: Patient refusing treatment during previous hospitalization, patient refused TPA, V/Q scan was performed which could not rule out the possibility of emboli Patient refusing Lovenox/Coumadin Patient indicates that she was told that she does not have any blood clots Patient was given copy of recent CTA for confirmation of her blood clot, however, patient states that that is not her It was discussed with the patient extensively that without anticoagulation she is at increased risk of embolic events to include worsening pulmonary emboli, stroke, . Palliative care was consulted for recommendations. Repeat CTA has been ordered to evaluate for residual pulmonary emboli Selective Mutism with Paranoid Schizophrenia: chronic, Patient has been evaluated by psychiatry, Psychiatry reconsulted due to the patient refusing medical care. As indicated by psychiatry the patient has full capacity to make her own medical decisions she is alert and orientated. 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 Refusal of speaking with caregivers about her condition. Likely need evaluation for competency. Patient will likely need inpatient psychiatric management Psychiatry did reevaluated patient however patient would not let psychiatrist surface grinder tender or examine her. Psychiatrist referred back to previous notes indicate that patient has at least some degree of capacity. Psychiatrist is recommending that patient be evaluated by ethics committee It appears the patient is psychiatric illness is inhibiting her from participating in patient care and evaluation. Patient will benefit from state hospital admission for management. Will defer to psychiatry Candidal intertrigo: under bilateral breasts. Nystatin powder. DVT Prophylaxis: Patient refusing Coumadin/Lovenox Discharge Planning Unable to determine discharge planning this time as patient was refusing all medical treatment, management, therapies. Case management consulted for possible administration evaluation with ethics, legal. horse stud manager's note from 08/01/16 indicates that he has spoken with patient's mother who agreed to assist in medical decision-making and assist change healthcare to get Medicaid reinstated. Steven Mccray Aug 17, 2016 12:56
[2016-08-17 20:00] VITALS: BP 102/60; PULSE 56; RESP 20; TEMP 97.5; O2SAT 98
[2016-08-18 08:00] VITALS: BP 128/68; PULSE 61; RESP 16; TEMP 97.5; O2SAT 100
--- NOTE | 2016-08-18 08:44 | HHI.PR ---
Subjective Remarks Patient seen and examined today for follow-up on subjective lower extremity weakness, noncompliance. Patient was sleeping when entering the room. I will patient and she startled. She denied any problems today. When asked if she is ready to be discharged she ignored the, would not respond to me thereafter Objective Vitals Vital Signs Date Time Temp Pulse Resp B/P Pulse Ox O2 Delivery O2 Flow Rate FiO2 08/17/16 20:00 97.5 56 20 102/60 98 I/O 08/17/16 08/17/16 08/17/16 08/18/16 08/18/16 08/18/16 07:00 15:00 23:00 07:00 15:00 23:00 Intake Total 480 ml 900 ml 720 ml Balance 480 ml 900 ml 720 ml Intake Oral 480 ml 900 ml 720 ml # Voids 2 1 2 # Bowel Movements 1 1 0 Objective Remarks GENERAL: Well-developed, well-nourished, in no acute distress. Urinary Catheter: No Vascular Central Line Catheter: No A/P Assessment and Plan Medical Noncompliance: Patient is refusing all medical care this time to include life-saving medications, physical therapy, occupational therapy, refusing to ambulate. Patient is not allowing medical staff to perform their duties and protect her from harm and prevent her from having significant life-threatening medical complications Discussed with palliative care physician Dr. Riddle, he states that he is familiar with this patient. He indicates that patient may need to have further evaluation for competency since the patient is clearly indicating that she does not have a condition or conditions that have been objectively identified and patient has been counseled extensively on. He indicates that we'll need to get case management and legals involved for appropriate management of this patient. From medical standpoint there is nothing else that medical service can offer due to the patient's noncompliance, unwilling to participate in patient care. We'll continue to defer evaluation and recommendations to psychiatry and case management Discuss with neuro psychiatrist, he indicated that he evaluated patient states that patient has had a significant change in her psychiatric illness and personalities/attitude. He does not feel that the patient is capable of making her own decisions and requests psychiatry reevaluated the patient to start treating the patient for her underlying psychiatric illness Psychiatry reevaluated the patient and does agree with neuro psychologist. At this point it was indicated patient does not have capacity make appropriate judgments concerning her treatment. He feels that appointment of a healthcare surrogate would be appropriate. Psychiatry reevaluated patient and indicated that patient is unable to make her own decisions and healthcare by proxy which is her mother should be the one making medical decisions for her. 08/05/16: Meeting with Tyson guallpa, patient, myself, nursing who notified patient that her mother is now making her medical decisions. Patient was not too thrilled about that situation. 08/12/16: Patient was placed in restraints, IV was started, patient was given sufficient amount of sedation, however still was unable to perform MRI testing Bilateral Lower Extremity Weakness, Difficulty w/Ambulation: Subjective. Patient refusing workup and treatment Cervical CT, lumbar CT scans were performed which did not indicate any acute abnormality which would indicate bilateral lower extremity weakness. Patient is refusing PT/OT evaluations Patient refused lumbar puncture for further evaluation. Patient will not undergo MRI study Neurology Dr. Nelson, has evaluated the patient does not have any etiology of the patient's lower extremity weakness. He is recommending angiography of the lumbar spine because of her hypercoagulability state from the recent saddle emboli, however radiologist does not perform any angiography of the spine. Radiologist recommended MRI study of the thoracic and lumbar spine. However, patient was not able to perform MRI study yesterday and refuses to have it done. Neurology indicated that there is nothing else they can offer from a neurological standpoint to contribute to the patient's possible etiologies. He indicated that he will sign off and defer continue management to medical team MRI of thoracic and lumbar spine has been requested Subacute Pulmonary Embolism 06/08/16 with Subtherapeutic INR: Patient refusing treatment during previous hospitalization, patient refused TPA, V/Q scan was performed which could not rule out the possibility of emboli Patient refusing Lovenox/Coumadin Patient indicates that she was told that she does not have any blood clots Patient was given copy of recent CTA for confirmation of her blood clot, however, patient states that that is not her It was discussed with the patient extensively that without anticoagulation she is at increased risk of embolic events to include worsening pulmonary emboli, stroke, . Palliative care was consulted for recommendations. Repeat CTA has been ordered to evaluate for residual pulmonary emboli Selective Mutism with Paranoid Schizophrenia: chronic, Patient has been evaluated by psychiatry, Psychiatry reconsulted due to the patient refusing medical care. As indicated by psychiatry the patient has full capacity to make her own medical decisions she is alert and orientated. 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 Refusal of speaking with caregivers about her condition. Likely need evaluation for competency. Patient will likely need inpatient psychiatric management Psychiatry did reevaluated patient however patient would not let psychiatrist truckload checker or examine her. Psychiatrist referred back to previous notes indicate that patient has at least some degree of capacity. Psychiatrist is recommending that patient be evaluated by ethics committee It appears the patient is psychiatric illness is inhibiting her from participating in patient care and evaluation. Patient will benefit from state hospital admission for management. Will defer to psychiatry Candidal intertrigo: under bilateral breasts. Nystatin powder. DVT Prophylaxis: Patient refusing Coumadin/Lovenox Discharge Planning Unable to determine discharge planning this time as patient was refusing all medical treatment, management, therapies. Case management consulted for possible administration evaluation with ethics, legal. transportation project manager's note from 08/01/16 indicates that he has spoken with patient's mother who agreed to assist in medical decision-making and assist change healthcare to get Medicaid reinstated. Steven Mccray Aug 18, 2016 08:44
[2016-08-18] MEDS: SODIUM CHLORIDE 0.9% FLUSH 10 ML FLUSH IV FLUSH SCH ×2 (09:00→21:00)
[2016-08-18] MEDS: NYSTATIN 100,000 U/GM PWD 15 GM BTL TOPICAL SCH ×2 (09:06→21:54)
[2016-08-18 20:00] VITALS: BP 102/63; PULSE 61; RESP 20; TEMP 98.7; O2SAT 96
[2016-08-19 08:00] VITALS: BP 99/68; PULSE 58; RESP 18; TEMP 97; O2SAT 98
--- NOTE | 2016-08-19 08:55 | HHI.PR ---
Subjective Remarks Patient seen and examined today for follow-up on subjective weakness and noncompliance. Patient still not speaking, nodding that she has no new complaints. She appears be more awake today. Objective Vitals Vital Signs Date Time Temp Pulse Resp B/P Pulse Ox O2 Delivery O2 Flow Rate FiO2 08/18/16 20:00 98.7 61 20 102/63 96 I/O 08/18/16 08/18/16 08/18/16 08/19/16 08/19/16 08/19/16 07:00 15:00 23:00 07:00 15:00 23:00 Intake Total 720 ml 600 ml 480 ml Balance 720 ml 600 ml 480 ml Intake Oral 720 ml 600 ml 480 ml # Voids 2 5 5 # Bowel Movements 0 4 Objective Remarks GENERAL: Well-developed, well-nourished, in no acute distress. alert HEENT: Head is normocephalic without any lesions or masses noted. Facial features are symmetric. Eyes: Extraocular muscles are intact. Conjunctivae were clear. NECK: Trachea midline no deviation. CARDIAC: Regular rhythm, regular rate. S1/S2 are heard. No murmurs gallops or rubs. LUNGS: Clear to auscultation bilaterally. No wheeze, rhonchi or rales. No use of accessory muscles on inspiration or expiration. Urinary Catheter: No Vascular Central Line Catheter: No A/P Assessment and Plan Medical Noncompliance: Patient is refusing all medical care this time to include life-saving medications, physical therapy, occupational therapy, refusing to ambulate. Patient is not allowing medical staff to perform their duties and protect her from harm and prevent her from having significant life-threatening medical complications Discussed with palliative care physician Dr. Riddle, he states that he is familiar with this patient. He indicates that patient may need to have further evaluation for competency since the patient is clearly indicating that she does not have a condition or conditions that have been objectively identified and patient has been counseled extensively on. He indicates that we'll need to get case management and legals involved for appropriate management of this patient. From medical standpoint there is nothing else that medical service can offer due to the patient's noncompliance, unwilling to participate in patient care. We'll continue to defer evaluation and recommendations to psychiatry and case management Discuss with neuro psychiatrist, he indicated that he evaluated patient states that patient has had a significant change in her psychiatric illness and personalities/attitude. He does not feel that the patient is capable of making her own decisions and requests psychiatry reevaluated the patient to start treating the patient for her underlying psychiatric illness Psychiatry reevaluated the patient and does agree with neuro psychologist. At this point it was indicated patient does not have capacity make appropriate judgments concerning her treatment. He feels that appointment of a healthcare surrogate would be appropriate. Psychiatry reevaluated patient and indicated that patient is unable to make her own decisions and healthcare by proxy which is her mother should be the one making medical decisions for her. 08/05/16: Meeting with Tyson guallpa, patient, myself, nursing who notified patient that her mother is now making her medical decisions. Patient was not too thrilled about that situation. 08/12/16: Patient was placed in restraints, IV was started, patient was given sufficient amount of sedation, however still was unable to perform MRI testing Bilateral Lower Extremity Weakness, Difficulty w/Ambulation: Subjective. Patient refusing workup and treatment Cervical CT, lumbar CT scans were performed which did not indicate any acute abnormality which would indicate bilateral lower extremity weakness. Patient is refusing PT/OT evaluations Patient refused lumbar puncture for further evaluation. Patient will not undergo MRI study Neurology Dr. Nelson, has evaluated the patient does not have any etiology of the patient's lower extremity weakness. He is recommending angiography of the lumbar spine because of her hypercoagulability state from the recent saddle emboli, however radiologist does not perform any angiography of the spine. Radiologist recommended MRI study of the thoracic and lumbar spine. However, patient was not able to perform MRI study yesterday and refuses to have it done. Neurology indicated that there is nothing else they can offer from a neurological standpoint to contribute to the patient's possible etiologies. He indicated that he will sign off and defer continue management to medical team MRI of thoracic and lumbar spine has been requested Subacute Pulmonary Embolism 06/08/16 with Subtherapeutic INR: Patient refusing treatment during previous hospitalization, patient refused TPA, V/Q scan was performed which could not rule out the possibility of emboli Patient refusing Lovenox/Coumadin Patient indicates that she was told that she does not have any blood clots Patient was given copy of recent CTA for confirmation of her blood clot, however, patient states that that is not her It was discussed with the patient extensively that without anticoagulation she is at increased risk of embolic events to include worsening pulmonary emboli, stroke, . Palliative care was consulted for recommendations. Repeat CTA has been ordered to evaluate for residual pulmonary emboli Selective Mutism with Paranoid Schizophrenia: chronic, Patient has been evaluated by psychiatry, Psychiatry reconsulted due to the patient refusing medical care. As indicated by psychiatry the patient has full capacity to make her own medical decisions she is alert and orientated. 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 Refusal of speaking with caregivers about her condition. Likely need evaluation for competency. Patient will likely need inpatient psychiatric management Psychiatry did reevaluated patient however patient would not let psychiatrist raw stock machine feeder or examine her. Psychiatrist referred back to previous notes indicate that patient has at least some degree of capacity. Psychiatrist is recommending that patient be evaluated by ethics committee It appears the patient is psychiatric illness is inhibiting her from participating in patient care and evaluation. [facility]. Will defer to psychiatry 08/19/16, did discuss case with case management. Notified him that it was unsuccessful in trying to obtain the objective data needed with MRI and CTs because patient was still uncooperative despite sedation. Discussed with him that it has been indicated by psychiatry as well as neuropsychiatry that the patient would be appropriate for psychiatric hospital. Will reconsult psychiatry for reevaluation and assistance in transferring patient to [facility] Candidal intertrigo: under bilateral breasts. Nystatin powder. DVT Prophylaxis: Patient refusing Coumadin/Lovenox Discharge Planning Unable to determine discharge planning this time as patient was refusing all medical treatment, management, therapies. Case management consulted for possible administration evaluation with ethics, legal. network manager's note from 08/01/16 indicates that he has spoken with patient's mother who agreed to assist in medical decision-making and assist change healthcare to get Medicaid reinstated. Steven Mccray Aug 19, 2016 08:55
[2016-08-19] MEDS: SODIUM CHLORIDE 0.9% FLUSH 10 ML FLUSH IV FLUSH SCH ×2 (09:00→21:00)
[2016-08-19] MEDS: NYSTATIN 100,000 U/GM PWD 15 GM BTL TOPICAL SCH ×2 (09:01→21:12)
--- NOTE | 2016-08-19 16:56 | HHI.PYPN ---
Subjective Remarks Patient seen in her room with 2 nurses. Patient sitting in bed style glasses. patient initially refused to talk to me and as anxious myself she talked showing marked delusions i mentioned her mother being her health care surrogate she says she does not have a mother that she was orphaned. She was unwilling or perhaps unable to discuss anything related to her behaviors. His BiPAP to send the patient continues to not have capacity to guide her treatment. I agree with the use of her mother as healthcare surrogate. However the discussion the [facility] placement I think is not applicable at this time. Dr. Beasley will be back on duty on Tuesday 08/22 you can reconsult him for further assessment of this lady for now I recommend continuing treatment and care Review of Systems Except as stated in HPI: all other systems reviewed are Neg Objective Alert: Yes Benson: Person, Place, Date, Situation Mood: Calm, Oppositional, Other (irritable) Affect: Appropriate, Other (slight increased range and intensity) Memory Intact: Immediate, Recent, Remote Hallucinations: Other (she denies) Delusions: No Delusion Type: Other (none elicited) Suicidal: Ideation (she denies) Homicidal: Ideation (she denies) Insight/Judgment Very poor Vitals/IOs Vital Signs Date Time Temp Pulse Resp B/P Pulse Ox O2 Delivery O2 Flow Rate FiO2 08/19/16 08:00 97.0 58 18 99/68 98 Intake and Output 08/18/16 08/18/16 08/19/16 08:00 16:00 00:00 Intake Total 720 ml 840 ml Balance 720 ml 840 ml Assessment & Plan Problem List: (1) Encounter for psychiatric assessment ICD Code: Z76.89 (2) Paranoid schizophrenia, chronic condition with acute exacerbation ICD Code: F20.0 Assessment & Plan Estimated LOS: days patient to show delusions psychotic features, for now would continue healthcare surrogate, please reconsult with Dr. Beasley returns to duty on 08/22 Justification for Cont. Inpt. At this time patient decompensate placed in the lower level of care Discharge Planning To be determined Skip Montgomery MD Aug 19, 2016 16:56
[2016-08-19 20:00] VITALS: BP 94/55; PULSE 67; RESP 18; TEMP 97.8; O2SAT 96
[2016-08-20 08:00] VITALS: BP 97/64; PULSE 63; RESP 18; TEMP 97.1; O2SAT 99
[2016-08-20] MEDS: SODIUM CHLORIDE 0.9% FLUSH 10 ML FLUSH IV FLUSH SCH (09:00)
--- NOTE | 2016-08-20 09:08 | HHI.PR ---
Subjective Remarks Patient seen and examined today for follow-up on noncompliance and subjective weakness. Objective Vitals Vital Signs Date Time Temp Pulse Resp B/P Pulse Ox O2 Delivery O2 Flow Rate FiO2 08/19/16 20:00 97.8 67 18 94/55 96 I/O 08/19/16 08/19/16 08/19/16 08/20/16 08/20/16 08/20/16 07:00 15:00 23:00 07:00 15:00 23:00 Intake Total 480 ml 600 ml 360 ml Balance 480 ml 600 ml 360 ml Intake Oral 480 ml 600 ml 360 ml # Voids 5 6 3 # Bowel Movements 4 2 Objective Remarks GENERAL: Well-developed, well-nourished, in no acute distress. alert HEENT: Head is normocephalic without any lesions or masses noted. Facial features are symmetric. Eyes: Extraocular muscles are intact. Conjunctivae were clear. NECK: Trachea midline no deviation. CARDIAC: Regular rhythm, regular rate. S1/S2 are heard. No murmurs gallops or rubs. LUNGS: Clear to auscultation bilaterally. No wheeze, rhonchi or rales. No use of accessory muscles on inspiration or expiration. Urinary Catheter: No Vascular Central Line Catheter: No A/P Assessment and Plan Medical Noncompliance: Patient is refusing all medical care this time to include life-saving medications, physical therapy, occupational therapy, refusing to ambulate. Patient is not allowing medical staff to perform their duties and protect her from harm and prevent her from having significant life-threatening medical complications Discussed with palliative care physician Dr. Riddle, he states that he is familiar with this patient. He indicates that patient may need to have further evaluation for competency since the patient is clearly indicating that she does not have a condition or conditions that have been objectively identified and patient has been counseled extensively on. He indicates that we'll need to get case management and legals involved for appropriate management of this patient. From medical standpoint there is nothing else that medical service can offer due to the patient's noncompliance, unwilling to participate in patient care. We'll continue to defer evaluation and recommendations to psychiatry and case management Discuss with neuro psychiatrist, he indicated that he evaluated patient states that patient has had a significant change in her psychiatric illness and personalities/attitude. He does not feel that the patient is capable of making her own decisions and requests psychiatry reevaluated the patient to start treating the patient for her underlying psychiatric illness Psychiatry reevaluated the patient and does agree with neuro psychologist. At this point it was indicated patient does not have capacity make appropriate judgments concerning her treatment. He feels that appointment of a healthcare surrogate would be appropriate. Psychiatry reevaluated patient and indicated that patient is unable to make her own decisions and healthcare by proxy which is her mother should be the one making medical decisions for her. 08/05/16: Meeting with Tyson guallpa, patient, myself, nursing who notified patient that her mother is now making her medical decisions. Patient was not too thrilled about that situation. 08/12/16: Patient was placed in restraints, IV was started, patient was given sufficient amount of sedation, however still was unable to perform MRI testing Bilateral Lower Extremity Weakness, Difficulty w/Ambulation: Subjective. Patient refusing workup and treatment Cervical CT, lumbar CT scans were performed which did not indicate any acute abnormality which would indicate bilateral lower extremity weakness. Patient is refusing PT/OT evaluations Patient refused lumbar puncture for further evaluation. Patient will not undergo MRI study Neurology Dr. Nelson, has evaluated the patient does not have any etiology of the patient's lower extremity weakness. He is recommending angiography of the lumbar spine because of her hypercoagulability state from the recent saddle emboli, however radiologist does not perform any angiography of the spine. Radiologist recommended MRI study of the thoracic and lumbar spine. However, patient was not able to perform MRI study yesterday and refuses to have it done. Neurology indicated that there is nothing else they can offer from a neurological standpoint to contribute to the patient's possible etiologies. He indicated that he will sign off and defer continue management to medical team MRI of thoracic and lumbar spine has been requested Subacute Pulmonary Embolism 06/08/16 with Subtherapeutic INR: Patient refusing treatment during previous hospitalization, patient refused TPA, V/Q scan was performed which could not rule out the possibility of emboli Patient refusing Lovenox/Coumadin Patient indicates that she was told that she does not have any blood clots Patient was given copy of recent CTA for confirmation of her blood clot, however, patient states that that is not her It was discussed with the patient extensively that without anticoagulation she is at increased risk of embolic events to include worsening pulmonary emboli, stroke, . Palliative care was consulted for recommendations. Repeat CTA has been ordered to evaluate for residual pulmonary emboli Selective Mutism with Paranoid Schizophrenia: chronic, Patient has been evaluated by psychiatry, Psychiatry reconsulted due to the patient refusing medical care. As indicated by psychiatry the patient has full capacity to make her own medical decisions she is alert and orientated. 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 Refusal of speaking with caregivers about her condition. Likely need evaluation for competency. Patient will likely need inpatient psychiatric management Psychiatry did reevaluated patient however patient would not let psychiatrist senior quality analyst or examine her. Psychiatrist referred back to previous notes indicate that patient has at least some degree of capacity. Psychiatrist is recommending that patient be evaluated by ethics committee It appears the patient is psychiatric illness is inhibiting her from participating in patient care and evaluation. Patient will benefit from state hospital admission for management. Will defer to psychiatry 08/19/16, did discuss case with case management. Notified him that it was unsuccessful in trying to obtain the objective data needed with MRI and CTs because patient was still uncooperative despite sedation. Discussed with him that it has been indicated by psychiatry as well as neuropsychiatry that the patient would be appropriate for [facility]. Will reconsult psychiatry for reevaluation and assistance in transferring patient to [facility] Candidal intertrigo: under bilateral breasts. Nystatin powder. DVT Prophylaxis: Patient refusing Coumadin/Lovenox Discharge Planning Unable to determine discharge planning this time as patient was refusing all medical treatment, management, therapies. Case management consulted for possible administration evaluation with ethics, legal. manager hardware's note from 08/01/16 indicates that he has spoken with patient's mother who agreed to assist in medical decision-making and assist change healthcare to get Medicaid reinstated. Steven Mccray Aug 20, 2016 09:08
[2016-08-20] MEDS: NYSTATIN 100,000 U/GM PWD 15 GM BTL TOPICAL SCH ×2 (10:25→22:16)
[2016-08-20 20:00] VITALS: BP 103/65; PULSE 58; RESP 16; TEMP 97.4; O2SAT 97
[2016-08-21 08:00] VITALS: BP 101/73; PULSE 58; RESP 19; TEMP 97.6; O2SAT 100
[2016-08-21] MEDS: SODIUM CHLORIDE 0.9% FLUSH 10 ML FLUSH IV FLUSH SCH ×2 (09:00→21:00)
[2016-08-21] MEDS: NYSTATIN 100,000 U/GM PWD 15 GM BTL TOPICAL SCH ×2 (09:01→21:33)
--- NOTE | 2016-08-21 10:32 | HHI.PR ---
Subjective Remarks Patient seen and examined today for follow-up on noncompliance, subjective weakness. Patient denies any new complaints. Would not allow me to ask her questions or examine her. Objective Vitals Vital Signs Date Time Temp Pulse Resp B/P Pulse Ox O2 Delivery O2 Flow Rate FiO2 08/21/16 08:00 97.6 58 19 101/73 100 08/20/16 20:00 97.4 58 16 103/65 97 I/O 08/20/16 08/20/16 08/20/16 08/21/16 08/21/16 08/21/16 07:00 15:00 23:00 07:00 15:00 23:00 Intake Total 360 ml 975 ml 480 ml 480 ml Balance 360 ml 975 ml 480 ml 480 ml Intake Oral 360 ml 975 ml 480 ml 480 ml IV Total 0 ml # Voids 3 2 1 2 # Bowel Movements 2 1 1 0 Objective Remarks GENERAL: Well-developed, well-nourished, in no acute distress. alert Urinary Catheter: No Vascular Central Line Catheter: No A/P Assessment and Plan Medical Noncompliance: Patient is refusing all medical care this time to include life-saving medications, physical therapy, occupational therapy, refusing to ambulate. Patient is not allowing medical staff to perform their duties and protect her from harm and prevent her from having significant life-threatening medical complications Discussed with palliative care physician Dr. Riddle, he states that he is familiar with this patient. He indicates that patient may need to have further evaluation for competency since the patient is clearly indicating that she does not have a condition or conditions that have been objectively identified and patient has been counseled extensively on. He indicates that we'll need to get case management and legals involved for appropriate management of this patient. From medical standpoint there is nothing else that medical service can offer due to the patient's noncompliance, unwilling to participate in patient care. We'll continue to defer evaluation and recommendations to psychiatry and case management Discuss with neuro psychiatrist, he indicated that he evaluated patient states that patient has had a significant change in her psychiatric illness and personalities/attitude. He does not feel that the patient is capable of making her own decisions and requests psychiatry reevaluated the patient to start treating the patient for her underlying psychiatric illness Psychiatry reevaluated the patient and does agree with neuro psychologist. At this point it was indicated patient does not have capacity make appropriate judgments concerning her treatment. He feels that appointment of a healthcare surrogate would be appropriate. Psychiatry reevaluated patient and indicated that patient is unable to make her own decisions and healthcare by proxy which is her mother should be the one making medical decisions for her. 08/05/16: Meeting with Tyson saloni, patient, myself, nursing who notified patient that her mother is now making her medical decisions. Patient was not too thrilled about that situation. 08/12/16: Patient was placed in restraints, IV was started, patient was given sufficient amount of sedation, however still was unable to perform MRI testing Bilateral Lower Extremity Weakness, Difficulty w/Ambulation: Subjective. Patient refusing workup and treatment Cervical CT, lumbar CT scans were performed which did not indicate any acute abnormality which would indicate bilateral lower extremity weakness. Patient is refusing PT/OT evaluations Patient refused lumbar puncture for further evaluation. Patient will not undergo MRI study Neurology Dr. Nelson, has evaluated the patient does not have any etiology of the patient's lower extremity weakness. He is recommending angiography of the lumbar spine because of her hypercoagulability state from the recent saddle emboli, however radiologist does not perform any angiography of the spine. Radiologist recommended MRI study of the thoracic and lumbar spine. However, patient was not able to perform MRI study yesterday and refuses to have it done. Neurology indicated that there is nothing else they can offer from a neurological standpoint to contribute to the patient's possible etiologies. He indicated that he will sign off and defer continue management to medical team MRI of thoracic and lumbar spine has been requested Subacute Pulmonary Embolism 06/08/16 with Subtherapeutic INR: Patient refusing treatment during previous hospitalization, patient refused TPA, V/Q scan was performed which could not rule out the possibility of emboli Patient refusing Lovenox/Coumadin Patient indicates that she was told that she does not have any blood clots Patient was given copy of recent CTA for confirmation of her blood clot, however, patient states that that is not her It was discussed with the patient extensively that without anticoagulation she is at increased risk of embolic events to include worsening pulmonary emboli, stroke, . Palliative care was consulted for recommendations. Repeat CTA has been ordered to evaluate for residual pulmonary emboli Selective Mutism with Paranoid Schizophrenia: chronic, Patient has been evaluated by psychiatry, Psychiatry reconsulted due to the patient refusing medical care. As indicated by psychiatry the patient has full capacity to make her own medical decisions she is alert and orientated. 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 Refusal of speaking with caregivers about her condition. Likely need evaluation for competency. Patient will likely need inpatient psychiatric management Psychiatry did reevaluated patient however patient would not let psychiatrist embossing calender operator or examine her. Psychiatrist referred back to previous notes indicate that patient has at least some degree of capacity. Psychiatrist is recommending that patient be evaluated by ethics committee It appears the patient is psychiatric illness is inhibiting her from participating in patient care and evaluation. Patient will benefit from [facility] admission for management. Will defer to psychiatry 08/19/16, did discuss case with case management. Notified him that it was unsuccessful in trying to obtain the objective data needed with MRI and CTs because patient was still uncooperative despite sedation. Discussed with him that it has been indicated by psychiatry as well as neuropsychiatry that the patient would be appropriate for [facility]. Will reconsult psychiatry for reevaluation and assistance in transferring patient to [facility] Candidal intertrigo: under bilateral breasts. Nystatin powder. DVT Prophylaxis: Patient refusing Coumadin/Lovenox Discharge Planning Unable to determine discharge planning this time as patient was refusing all medical treatment, management, therapies. Case management consulted for possible administration evaluation with ethics, legal. tour manager's note from 08/01/16 indicates that he has spoken with patient's mother who agreed to assist in medical decision-making and assist change healthcare to get Medicaid reinstated. Steven Mccray Aug 21, 2016 10:32
[2016-08-22 08:00] VITALS: BP 108/73; PULSE 57; RESP 20; TEMP 96.9; O2SAT 100
--- NOTE | 2016-08-22 08:03 | HHI.PR ---
Subjective Remarks Patient seen and examined today for follow-up on noncompliance, subjective weakness. Patient does not indicate any new complaints. She appears be in better spirits today. Objective Vitals I/O 08/21/16 08/21/16 08/21/16 08/22/16 08/22/16 08/22/16 07:00 15:00 23:00 07:00 15:00 23:00 Intake Total 480 ml 960 ml Balance 480 ml 960 ml Intake Oral 480 ml 960 ml # Voids 2 3 # Bowel Movements 0 1 Objective Remarks GENERAL: Well-developed, well-nourished, in no acute distress. alert Urinary Catheter: No Vascular Central Line Catheter: No A/P Assessment and Plan Medical Noncompliance: Patient is refusing all medical care this time to include life-saving medications, physical therapy, occupational therapy, refusing to ambulate. Patient is not allowing medical staff to perform their duties and protect her from harm and prevent her from having significant life-threatening medical complications Discussed with palliative care physician Dr. Riddle, he states that he is familiar with this patient. He indicates that patient may need to have further evaluation for competency since the patient is clearly indicating that she does not have a condition or conditions that have been objectively identified and patient has been counseled extensively on. He indicates that we'll need to get case management and legals involved for appropriate management of this patient. From medical standpoint there is nothing else that medical service can offer due to the patient's noncompliance, unwilling to participate in patient care. We'll continue to defer evaluation and recommendations to psychiatry and case management Discuss with neuro psychiatrist, he indicated that he evaluated patient states that patient has had a significant change in her psychiatric illness and personalities/attitude. He does not feel that the patient is capable of making her own decisions and requests psychiatry reevaluated the patient to start treating the patient for her underlying psychiatric illness Psychiatry reevaluated the patient and does agree with neuro psychologist. At this point it was indicated patient does not have capacity make appropriate judgments concerning her treatment. He feels that appointment of a healthcare surrogate would be appropriate. Psychiatry reevaluated patient and indicated that patient is unable to make her own decisions and healthcare by proxy which is her mother should be the one making medical decisions for her. 08/05/16: Meeting with Tyson guallpa, patient, myself, nursing who notified patient that her mother is now making her medical decisions. Patient was not too thrilled about that situation. 08/12/16: Patient was placed in restraints, IV was started, patient was given sufficient amount of sedation, however still was unable to perform MRI testing Bilateral Lower Extremity Weakness, Difficulty w/Ambulation: Subjective. Patient refusing workup and treatment Cervical CT, lumbar CT scans were performed which did not indicate any acute abnormality which would indicate bilateral lower extremity weakness. Patient is refusing PT/OT evaluations Patient refused lumbar puncture for further evaluation. Patient will not undergo MRI study Neurology Dr. Nelson, has evaluated the patient does not have any etiology of the patient's lower extremity weakness. He is recommending angiography of the lumbar spine because of her hypercoagulability state from the recent saddle emboli, however radiologist does not perform any angiography of the spine. Radiologist recommended MRI study of the thoracic and lumbar spine. However, patient was not able to perform MRI study yesterday and refuses to have it done. Neurology indicated that there is nothing else they can offer from a neurological standpoint to contribute to the patient's possible etiologies. He indicated that he will sign off and defer continue management to medical team MRI of thoracic and lumbar spine has been requested Subacute Pulmonary Embolism 06/08/16 with Subtherapeutic INR: Patient refusing treatment during previous hospitalization, patient refused TPA, V/Q scan was performed which could not rule out the possibility of emboli Patient refusing Lovenox/Coumadin Patient indicates that she was told that she does not have any blood clots Patient was given copy of recent CTA for confirmation of her blood clot, however, patient states that that is not her It was discussed with the patient extensively that without anticoagulation she is at increased risk of embolic events to include worsening pulmonary emboli, stroke, . Palliative care was consulted for recommendations. Repeat CTA has been ordered to evaluate for residual pulmonary emboli Selective Mutism with Paranoid Schizophrenia: chronic, Patient has been evaluated by psychiatry, Psychiatry reconsulted due to the patient refusing medical care. As indicated by psychiatry the patient has full capacity to make her own medical decisions she is alert and orientated. 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 Refusal of speaking with caregivers about her condition. Likely need evaluation for competency. Patient will likely need inpatient psychiatric management Psychiatry did reevaluated patient however patient would not let psychiatrist exercise specialist or examine her. Psychiatrist referred back to previous notes indicate that patient has at least some degree of capacity. Psychiatrist is recommending that patient be evaluated by ethics committee It appears the patient is psychiatric illness is inhibiting her from participating in patient care and evaluation. [facility] Will defer to psychiatry 08/19/16, did discuss case with case management. Notified him that it was unsuccessful in trying to obtain the objective data needed with MRI and CTs because patient was still uncooperative despite sedation. Discussed with him that it has been indicated by psychiatry as well as neuropsychiatry that the patient would be appropriate for [facility]. Will reconsult psychiatry for reevaluation and assistance in transferring patient to [facility] 08/19/16, psychiatry reevaluated patient still indicates patient is unable to make any of her own decisions. Agrees with mother being healthcare surrogate. Also documenting that patient anxious with marked delusions however indicating that [facility] hospital placement is not applicable at this time. Recommending discussing with Dr. Beasley Candidal intertrigo: under bilateral breasts. Nystatin powder. DVT Prophylaxis: Patient refusing Coumadin/Lovenox Discharge Planning Unable to determine discharge planning this time as patient was refusing all medical treatment, management, therapies. Case management consulted for possible administration evaluation with ethics, legal. environmental health safety manager's note from 08/01/16 indicates that he has spoken with patient's mother who agreed to assist in medical decision-making and assist change healthcare to get Medicaid reinstated. Steven Mccray Aug 22, 2016 08:03
[2016-08-22] MEDS: SODIUM CHLORIDE 0.9% FLUSH 10 ML FLUSH IV FLUSH SCH ×2 (08:49→21:00)
[2016-08-22] MEDS: NYSTATIN 100,000 U/GM PWD 15 GM BTL TOPICAL SCH ×2 (08:49→21:41)
[2016-08-22 20:00] VITALS: BP 117/68; PULSE 64; RESP 19; TEMP 97.6; O2SAT 98
[2016-08-23 08:00] VITALS: BP 120/75; PULSE 64; RESP 18; TEMP 97; O2SAT 100
[2016-08-23] MEDS: NYSTATIN 100,000 U/GM PWD 15 GM BTL TOPICAL SCH ×2 (09:00→21:55)
[2016-08-23] MEDS: SODIUM CHLORIDE 0.9% FLUSH 10 ML FLUSH IV FLUSH SCH ×2 (09:00→21:00)
--- NOTE | 2016-08-23 13:41 | HHI.PR ---
Subjective Remarks Follow up for subjective lower extremity weakness. No acute complaints. Objective Vitals Vital Signs Date Time Temp Pulse Resp B/P Pulse Ox O2 Delivery O2 Flow Rate FiO2 08/23/16 08:00 97.0 64 18 120/75 100 08/22/16 20:00 97.6 64 19 117/68 98 I/O 08/22/16 08/22/16 08/22/16 08/23/16 08/23/16 08/23/16 07:00 15:00 23:00 07:00 15:00 23:00 Intake Total 960 ml 960 ml 120 ml 120 ml Balance 960 ml 960 ml 120 ml 120 ml Intake Oral 960 ml 960 ml 120 ml 120 ml # Voids 3 6 1 # Bowel Movements 1 1 Objective Remarks GENERAL: Well-developed patient in apparent distress. CARDIOVASCULAR: Normal rate and regular rhythm. RESPIRATORY: No accessory muscle use. CTAB. NEUROLOGICAL: Awake and alert. PSYCHIATRIC: Electively mute. Urinary Catheter: No Vascular Central Line Catheter: No A/P Assessment and Plan Medical Noncompliance: Patient is refusing all medical care this time to include life-saving medications, physical therapy, occupational therapy, refusing to ambulate. Patient is not allowing medical staff to perform their duties and protect her from harm and prevent her from having significant life-threatening medical complications Discussed with palliative care physician Dr. Riddle, he states that he is familiar with this patient. He indicates that patient may need to have further evaluation for competency since the patient is clearly indicating that she does not have a condition or conditions that have been objectively identified and patient has been counseled extensively on. He indicates that we'll need to get case management and legals involved for appropriate management of this patient. From medical standpoint there is nothing else that medical service can offer due to the patient's noncompliance, unwilling to participate in patient care. We'll continue to defer evaluation and recommendations to psychiatry and case management Discuss with neuropsychologist, he indicated that he evaluated patient states that patient has had a significant change in her psychiatric illness and personalities/attitude. He does not feel that the patient is capable of making her own decisions and requests psychiatry reevaluated the patient to start treating the patient for her underlying psychiatric illness Psychiatry reevaluated the patient and does agree with neuro psychologist. At this point it was indicated patient does not have capacity make appropriate judgments concerning her treatment. He feels that appointment of a healthcare surrogate would be appropriate. Psychiatry reevaluated patient and indicated that patient is unable to make her own decisions and healthcare by proxy which is her mother should be the one making medical decisions for her. 08/05/16: Meeting with Tyson guallpa, patient, colleague, nursing who notified patient that her mother is now making her medical decisions. 08/12/16: Patient was placed in restraints, IV was started, patient was given sufficient amount of sedation, however still was unable to perform MRI testing Bilateral Lower Extremity Weakness, Difficulty w/Ambulation: Subjective. Patient refusing workup and treatment Cervical CT, lumbar CT scans were performed which did not indicate any acute abnormality which would indicate bilateral lower extremity weakness. Patient is refusing PT/OT evaluations Patient refused lumbar puncture for further evaluation. Patient will not undergo MRI study Neurology Dr. Nelson, has evaluated the patient does not have any etiology of the patient's lower extremity weakness. He is recommending angiography of the lumbar spine because of her hypercoagulability state from the recent saddle emboli, however radiologist does not perform any angiography of the spine. Radiologist recommended MRI study of the thoracic and lumbar spine. However, patient was not able to perform MRI study yesterday and refuses to have it done. Neurology indicated that there is nothing else they can offer from a neurological standpoint to contribute to the patient's possible etiologies. He indicated that he will sign off and defer continue management to medical team MRI of thoracic and lumbar spine was requested but has since been cancelled since unable to complete Subacute Pulmonary Embolism 06/08/16 with Subtherapeutic INR: Patient refusing treatment during previous hospitalization, patient refused TPA, V/Q scan was performed which could not rule out the possibility of emboli Patient refusing Lovenox/Coumadin Patient indicates that she was told that she does not have any blood clots Patient was given copy of recent CTA for confirmation of her blood clot, however, patient states that that is not her It was discussed with the patient extensively that without anticoagulation she is at increased risk of embolic events to include worsening pulmonary emboli, stroke, . Palliative care was consulted for recommendations. Repeat CTA has been ordered to evaluate for residual pulmonary emboli but was cancelled as unable to be completed Selective Mutism with Paranoid Schizophrenia: chronic, Patient has been evaluated by psychiatry, Psychiatry reconsulted due to the patient refusing medical care. As indicated by psychiatry the patient has full capacity to make her own medical decisions she is alert and orientated. 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 Refusal of speaking with caregivers about her condition. Likely need evaluation for competency. Patient will likely need inpatient psychiatric management Psychiatry did reevaluated patient however patient would not let psychiatrist pediatric dental hygienist or examine her. Psychiatrist referred back to previous notes indicate that patient has at least some degree of capacity. Psychiatrist is recommending that patient be evaluated by ethics committee It appears the patient is psychiatric illness is inhibiting her from participating in patient care and evaluation. [facility] Will defer to psychiatry 08/19/16, psychiatry reevaluated patient still indicates patient is unable to make any of her own decisions. Agrees with mother being healthcare surrogate. Also documenting that patient anxious with marked delusions however indicating that [facility] is not applicable at this time. Recommending discussing with Dr. Guthrie. Candidal intertrigo: under bilateral breasts. Nystatin powder. DVT Prophylaxis: Patient refusing Coumadin/Lovenox Discharge Planning 08/05: Mother is medical decision maker. Awaiting getting Medicaid reinstated. Sneha Choi Aug 23, 2016 13:41
[2016-08-23 20:00] VITALS: BP 92/64; PULSE 60; RESP 18; TEMP 97.8; O2SAT 97
[2016-08-24 08:00] VITALS: BP 104/78; PULSE 59; RESP 16; TEMP 96.6; O2SAT 97
[2016-08-24] MEDS: SODIUM CHLORIDE 0.9% FLUSH 10 ML FLUSH IV FLUSH SCH ×2 (08:35→21:00)
[2016-08-24] MEDS: NYSTATIN 100,000 U/GM PWD 15 GM BTL TOPICAL SCH ×2 (08:35→21:48)
--- NOTE | 2016-08-24 18:52 | HHI.PR ---
Subjective Remarks Late entry. Patient evaluated this morning. Follow-up are subjective weakness. The patient spoke to me for the first time today. No acute complaints. Objective Vitals Vital Signs Date Time Temp Pulse Resp B/P Pulse Ox O2 Delivery O2 Flow Rate FiO2 08/24/16 08:00 96.6 59 16 104/78 97 08/23/16 20:00 97.8 60 18 92/64 97 I/O 08/23/16 08/23/16 08/23/16 08/24/16 08/24/16 08/24/16 07:00 15:00 23:00 07:00 15:00 23:00 Intake Total 120 ml 975 ml 400 ml Balance 120 ml 975 ml 400 ml Intake Oral 120 ml 975 ml 400 ml # Voids 1 3 2 # Bowel Movements 0 Objective Remarks GENERAL: Well-developed patient in apparent distress. CARDIOVASCULAR: Normal rate and regular rhythm. RESPIRATORY: No accessory muscle use. CTAB. NEUROLOGICAL: Awake and alert. Normal speech, well spoken. PSYCHIATRIC: Normal mood and affect. Urinary Catheter: No Vascular Central Line Catheter: No A/P Assessment and Plan Medical Noncompliance: Patient is refusing all medical care this time to include life-saving medications, physical therapy, occupational therapy, refusing to ambulate. Patient is not allowing medical staff to perform their duties and protect her from harm and prevent her from having significant life-threatening medical complications Discussed with palliative care physician Dr. Riddle, he states that he is familiar with this patient. He indicates that patient may need to have further evaluation for competency since the patient is clearly indicating that she does not have a condition or conditions that have been objectively identified and patient has been counseled extensively on. He indicates that we'll need to get case management and legals involved for appropriate management of this patient. From medical standpoint there is nothing else that medical service can offer due to the patient's noncompliance, unwilling to participate in patient care. We'll continue to defer evaluation and recommendations to psychiatry and case management Discuss with neuropsychologist, he indicated that he evaluated patient states that patient has had a significant change in her psychiatric illness and personalities/attitude. He does not feel that the patient is capable of making her own decisions and requests psychiatry reevaluated the patient to start treating the patient for her underlying psychiatric illness Psychiatry reevaluated the patient and does agree with neuro psychologist. At this point it was indicated patient does not have capacity make appropriate judgments concerning her treatment. He feels that appointment of a healthcare surrogate would be appropriate. Psychiatry reevaluated patient and indicated that patient is unable to make her own decisions and healthcare by proxy which is her mother should be the one making medical decisions for her. 08/05/16: Meeting with Tyson guallpa, patient, colleague, nursing who notified patient that her mother is now making her medical decisions. 08/12/16: Patient was placed in restraints, IV was started, patient was given sufficient amount of sedation, however still was unable to perform MRI testing Bilateral Lower Extremity Weakness, Difficulty w/Ambulation: Subjective. Patient refusing workup and treatment Cervical CT, lumbar CT scans were performed which did not indicate any acute abnormality which would indicate bilateral lower extremity weakness. Patient is refusing PT/OT evaluations Patient refused lumbar puncture for further evaluation. Patient will not undergo MRI study Neurology Dr. Nelson, has evaluated the patient does not have any etiology of the patient's lower extremity weakness. He is recommending angiography of the lumbar spine because of her hypercoagulability state from the recent saddle emboli, however radiologist does not perform any angiography of the spine. Radiologist recommended MRI study of the thoracic and lumbar spine. However, patient was not able to perform MRI study yesterday and refuses to have it done. Neurology indicated that there is nothing else they can offer from a neurological standpoint to contribute to the patient's possible etiologies. He indicated that he will sign off and defer continue management to medical team MRI of thoracic and lumbar spine was requested but has since been cancelled since unable to complete Subacute Pulmonary Embolism 06/08/16 with Subtherapeutic INR: Patient refusing treatment during previous hospitalization, patient refused TPA, V/Q scan was performed which could not rule out the possibility of emboli Patient refusing Lovenox/Coumadin Patient indicates that she was told that she does not have any blood clots Patient was given copy of recent CTA for confirmation of her blood clot, however, patient states that that is not her It was discussed with the patient extensively that without anticoagulation she is at increased risk of embolic events to include worsening pulmonary emboli, stroke, . Palliative care was consulted for recommendations. Repeat CTA has been ordered to evaluate for residual pulmonary emboli but was cancelled as unable to be completed Selective Mutism with Paranoid Schizophrenia: chronic, Patient has been evaluated by psychiatry, Psychiatry reconsulted due to the patient refusing medical care. As indicated by psychiatry the patient has full capacity to make her own medical decisions she is alert and orientated. 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 Refusal of speaking with caregivers about her condition. Likely need evaluation for competency. Patient will likely need inpatient psychiatric management Psychiatry did reevaluated patient however patient would not let psychiatrist rod buster or examine her. Psychiatrist referred back to previous notes indicate that patient has at least some degree of capacity. Psychiatrist is recommending that patient be evaluated by ethics committee It appears the patient is psychiatric illness is inhibiting her from participating in patient care and evaluation. Patient will benefit from state hospital admission for management. Will defer to psychiatry 08/19/16, psychiatry reevaluated patient still indicates patient is unable to make any of her own decisions. Agrees with mother being healthcare surrogate. Also documenting that patient anxious with marked delusions however indicating that state hospital placement is not applicable at this time. Recommending discussing with Dr. Guthrie. 08/24: Patient spoke to me for the first time today. Candidal intertrigo: under bilateral breasts. Nystatin powder. DVT Prophylaxis: Patient refusing Coumadin/Lovenox Discharge Planning 08/05: Mother is medical decision maker. Awaiting getting Medicaid reinstated. Sneha Choi Aug 24, 2016 18:52
[2016-08-24 20:00] VITALS: BP 99/71; PULSE 62; RESP 21; TEMP 97.1; O2SAT 98
[2016-08-24] MEDS ORDERED: LORazepam 2 MG/ML VIAL IV PUSH PRN (21:45)
[2016-08-24] MEDS ORDERED: ACETAMINOPHEN 325 MG TAB PO PRN (21:45)
[2016-08-24] MEDS ORDERED: MAGNESIUM HYDROXIDE SUSP 30 ML CUP PO PRN (21:45)
[2016-08-24] MEDS ORDERED: TEMAZEPAM 15 MG CAP PO PRN (21:45)
[2016-08-24] MEDS ORDERED: ONDANSETRON HCL 4 MG/2 ML VIAL IVP PRN (21:45)
[2016-08-25 08:00] VITALS: BP 108/65; PULSE 54; RESP 18; TEMP 97; O2SAT 98
[2016-08-25] MEDS: NYSTATIN 100,000 U/GM PWD 15 GM BTL TOPICAL SCH ×2 (08:39→21:00)
[2016-08-25] MEDS: SODIUM CHLORIDE 0.9% FLUSH 10 ML FLUSH IV FLUSH SCH ×2 (08:39→21:00)
--- NOTE | 2016-08-25 10:21 | HHI.PR ---
Subjective Remarks Follow-up for subjective lower extremity weakness. No acute complaints. Objective Vitals Vital Signs Date Time Temp Pulse Resp B/P Pulse Ox O2 Delivery O2 Flow Rate FiO2 08/24/16 20:00 97.1 62 21 99/71 98 I/O 08/24/16 08/24/16 08/24/16 08/25/16 08/25/16 08/25/16 07:00 15:00 23:00 07:00 15:00 23:00 Intake Total 400 ml 1440 ml 480 ml Output Total 1 ml Balance 400 ml 1439 ml 480 ml Intake Oral 400 ml 1440 ml 480 ml Stool Total 1 ml # Voids 2 5 2 # Bowel Movements 0 0 0 Objective Remarks GENERAL: Well-developed patient in apparent distress. CARDIOVASCULAR: Normal rate and regular rhythm. RESPIRATORY: No accessory muscle use. CTAB. NEUROLOGICAL: Awake and alert. PSYCHIATRIC: Does not speak. Urinary Catheter: No Vascular Central Line Catheter: No A/P Assessment and Plan Medical Noncompliance: Patient is refusing all medical care this time to include life-saving medications, physical therapy, occupational therapy, refusing to ambulate. Patient is not allowing medical staff to perform their duties and protect her from harm and prevent her from having significant life-threatening medical complications Discussed with palliative care physician Dr. Riddle, he states that he is familiar with this patient. He indicates that patient may need to have further evaluation for competency since the patient is clearly indicating that she does not have a condition or conditions that have been objectively identified and patient has been counseled extensively on. He indicates that we'll need to get case management and legals involved for appropriate management of this patient. From medical standpoint there is nothing else that medical service can offer due to the patient's noncompliance, unwilling to participate in patient care. We'll continue to defer evaluation and recommendations to psychiatry and case management Discuss with neuropsychologist, he indicated that he evaluated patient states that patient has had a significant change in her psychiatric illness and personalities/attitude. He does not feel that the patient is capable of making her own decisions and requests psychiatry reevaluated the patient to start treating the patient for her underlying psychiatric illness Psychiatry reevaluated the patient and does agree with neuro psychologist. At this point it was indicated patient does not have capacity make appropriate judgments concerning her treatment. He feels that appointment of a healthcare surrogate would be appropriate. Psychiatry reevaluated patient and indicated that patient is unable to make her own decisions and healthcare by proxy which is her mother should be the one making medical decisions for her. 08/05/16: Meeting with Tyson guallpa, patient, colleague, nursing who notified patient that her mother is now making her medical decisions. 08/12/16: Patient was placed in restraints, IV was started, patient was given sufficient amount of sedation, however still was unable to perform MRI testing Bilateral Lower Extremity Weakness, Difficulty w/Ambulation: Subjective. Patient refusing workup and treatment Cervical CT, lumbar CT scans were performed which did not indicate any acute abnormality which would indicate bilateral lower extremity weakness. Patient is refusing PT/OT evaluations Patient refused lumbar puncture for further evaluation. Patient will not undergo MRI study Neurology Dr. Nelson, has evaluated the patient does not have any etiology of the patient's lower extremity weakness. He is recommending angiography of the lumbar spine because of her hypercoagulability state from the recent saddle emboli, however radiologist does not perform any angiography of the spine. Radiologist recommended MRI study of the thoracic and lumbar spine. However, patient was not able to perform MRI study yesterday and refuses to have it done. Neurology indicated that there is nothing else they can offer from a neurological standpoint to contribute to the patient's possible etiologies. He indicated that he will sign off and defer continue management to medical team MRI of thoracic and lumbar spine was requested but has since been cancelled since unable to complete Subacute Pulmonary Embolism 06/08/16 with Subtherapeutic INR: Patient refusing treatment during previous hospitalization, patient refused TPA, V/Q scan was performed which could not rule out the possibility of emboli Patient refusing Lovenox/Coumadin Patient indicates that she was told that she does not have any blood clots Patient was given copy of recent CTA for confirmation of her blood clot, however, patient states that that is not her It was discussed with the patient extensively that without anticoagulation she is at increased risk of embolic events to include worsening pulmonary emboli, stroke, . Palliative care was consulted for recommendations. Repeat CTA has been ordered to evaluate for residual pulmonary emboli but was cancelled as unable to be completed Selective Mutism with Paranoid Schizophrenia: chronic, Patient has been evaluated by psychiatry, Psychiatry reconsulted due to the patient refusing medical care. As indicated by psychiatry the patient has full capacity to make her own medical decisions she is alert and orientated. 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 Refusal of speaking with caregivers about her condition. Likely need evaluation for competency. Patient will likely need inpatient psychiatric management Psychiatry did reevaluated patient however patient would not let psychiatrist corporate sales trainer or examine her. Psychiatrist referred back to previous notes indicate that patient has at least some degree of capacity. Psychiatrist is recommending that patient be evaluated by ethics committee It appears the patient is psychiatric illness is inhibiting her from participating in patient care and evaluation. Patient will benefit from state hospital admission for management. Will defer to psychiatry 08/19/16, psychiatry reevaluated patient still indicates patient is unable to make any of her own decisions. Agrees with mother being healthcare surrogate. Also documenting that patient anxious with marked delusions however indicating that state hospital placement is not applicable at this time. Recommending discussing with Dr. Guthrie. 08/24: Patient spoke to me for the first time today. Candidal intertrigo: under bilateral breasts. Nystatin powder. DVT Prophylaxis: Patient refusing Coumadin/Lovenox Discharge Planning Mother is medical decision maker. Awaiting getting Medicaid reinstated. Difficult discharge due to patient's unwillingness and inability to complete objective testing along with psychiatric issues. Sneha Choi Aug 25, 2016 10:21
[2016-08-25 20:00] VITALS: BP 118/63; PULSE 64; RESP 18; TEMP 97.4; O2SAT 96
[2016-08-26 08:00] VITALS: BP 109/71; PULSE 61; RESP 18; TEMP 96; O2SAT 100
[2016-08-26] MEDS: NYSTATIN 100,000 U/GM PWD 15 GM BTL TOPICAL SCH ×2 (08:10→21:00)
[2016-08-26] MEDS: SODIUM CHLORIDE 0.9% FLUSH 10 ML FLUSH IV FLUSH SCH ×2 (08:10→21:00)
--- NOTE | 2016-08-26 10:49 | HHI.PR ---
Subjective Remarks Follow up for subjective lower extremity weakness. Patient apparently refusing to get cleaned up and is sitting in her urine and feces. Charge nurse, nurses, PILER physically assisted the patient and getting herself and bedding cleaned as she is neglecting herself. Objective Vitals Vital Signs Date Time Temp Pulse Resp B/P Pulse Ox O2 Delivery O2 Flow Rate FiO2 08/26/16 08:00 96.0 61 18 109/71 100 08/25/16 20:00 97.4 64 18 118/63 96 I/O 08/25/16 08/25/16 08/25/16 08/26/16 08/26/16 08/26/16 07:00 15:00 23:00 07:00 15:00 23:00 Intake Total 480 ml 1680 ml 480 ml Balance 480 ml 1680 ml 480 ml Intake Oral 480 ml 1680 ml 480 ml # Voids 2 6 2 2 # Bowel Movements 0 0 0 1 Objective Remarks GENERAL: Well-developed patient in apparent distress. CARDIOVASCULAR: Normal rate and regular rhythm. RESPIRATORY: No accessory muscle use. CTAB. NEUROLOGICAL: Awake and alert. PSYCHIATRIC: Electively mute. Urinary Catheter: No Vascular Central Line Catheter: No A/P Assessment and Plan Medical Noncompliance: Patient is refusing all medical care this time to include life-saving medications, physical therapy, occupational therapy, refusing to ambulate. Patient is not allowing medical staff to perform their duties and protect her from harm and prevent her from having significant life-threatening medical complications Discussed with palliative care physician Dr. Riddle, he states that he is familiar with this patient. He indicates that patient may need to have further evaluation for competency since the patient is clearly indicating that she does not have a condition or conditions that have been objectively identified and patient has been counseled extensively on. He indicates that we'll need to get case management and legals involved for appropriate management of this patient. From medical standpoint there is nothing else that medical service can offer due to the patient's noncompliance, unwilling to participate in patient care. We'll continue to defer evaluation and recommendations to psychiatry and case management Discuss with neuropsychologist, he indicated that he evaluated patient states that patient has had a significant change in her psychiatric illness and personalities/attitude. He does not feel that the patient is capable of making her own decisions and requests psychiatry reevaluated the patient to start treating the patient for her underlying psychiatric illness Psychiatry reevaluated the patient and does agree with neuro psychologist. At this point it was indicated patient does not have capacity make appropriate judgments concerning her treatment. He feels that appointment of a healthcare surrogate would be appropriate. Psychiatry reevaluated patient and indicated that patient is unable to make her own decisions and healthcare by proxy which is her mother should be the one making medical decisions for her. 08/05/16: Meeting with Tyson guallpa, patient, colleague, nursing who notified patient that her mother is now making her medical decisions. 08/12/16: Patient was placed in restraints, IV was started, patient was given sufficient amount of sedation, however still was unable to perform MRI testing Bilateral Lower Extremity Weakness, Difficulty w/Ambulation: Subjective. Patient refusing workup and treatment Cervical CT, lumbar CT scans were performed which did not indicate any acute abnormality which would indicate bilateral lower extremity weakness. Patient is refusing PT/OT evaluations Patient refused lumbar puncture for further evaluation. Patient will not undergo MRI study Neurology Dr. Nelson, has evaluated the patient does not have any etiology of the patient's lower extremity weakness. He is recommending angiography of the lumbar spine because of her hypercoagulability state from the recent saddle emboli, however radiologist does not perform any angiography of the spine. Radiologist recommended MRI study of the thoracic and lumbar spine. However, patient was not able to perform MRI study yesterday and refuses to have it done. Neurology indicated that there is nothing else they can offer from a neurological standpoint to contribute to the patient's possible etiologies. He indicated that he will sign off and defer continue management to medical team MRI of thoracic and lumbar spine was requested but has since been cancelled since unable to complete Subacute Pulmonary Embolism 06/08/16 with Subtherapeutic INR: Patient refusing treatment during previous hospitalization, patient refused TPA, V/Q scan was performed which could not rule out the possibility of emboli Patient refusing Lovenox/Coumadin Patient indicates that she was told that she does not have any blood clots Patient was given copy of recent CTA for confirmation of her blood clot, however, patient states that that is not her It was discussed with the patient extensively that without anticoagulation she is at increased risk of embolic events to include worsening pulmonary emboli, stroke, . Palliative care was consulted for recommendations. Repeat CTA has been ordered to evaluate for residual pulmonary emboli but was cancelled as unable to be completed Selective Mutism with Paranoid Schizophrenia: chronic, Patient has been evaluated by psychiatry, Psychiatry reconsulted due to the patient refusing medical care. As indicated by psychiatry the patient has full capacity to make her own medical decisions she is alert and orientated. 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 Refusal of speaking with caregivers about her condition. Likely need evaluation for competency. Patient will likely need inpatient psychiatric management Psychiatry did reevaluated patient however patient would not let psychiatrist vocational evaluator or examine her. Psychiatrist referred back to previous notes indicate that patient has at least some degree of capacity. Psychiatrist is recommending that patient be evaluated by ethics committee It appears the patient is psychiatric illness is inhibiting her from participating in patient care and evaluation. Patient will benefit from state hospital admission for management. Will defer to psychiatry 08/19/16, psychiatry reevaluated patient still indicates patient is unable to make any of her own decisions. Agrees with mother being healthcare surrogate. Also documenting that patient anxious with marked delusions however indicating that state hospital placement is not applicable at this time. Recommending discussing with Dr. Guthrie. 08/24: Patient spoke to me for the first time today. Candidal intertrigo: under bilateral breasts. Nystatin powder. DVT Prophylaxis: Patient refusing Coumadin/Lovenox Discharge Planning Mother is medical decision maker. Awaiting getting Medicaid reinstated. Difficult discharge due to patient's unwillingness and inability to complete objective testing along with psychiatric issues. Sneha Choi Aug 26, 2016 10:49
[2016-08-26 21:01] VITALS: BP 102/62; PULSE 69; RESP 16; TEMP 98; O2SAT 99
[2016-08-27 08:00] VITALS: BP 131/90; PULSE 66; RESP 18; TEMP 98.6; O2SAT 96
[2016-08-27] MEDS: NYSTATIN 100,000 U/GM PWD 15 GM BTL TOPICAL SCH ×2 (09:00→21:00)
[2016-08-27] MEDS: SODIUM CHLORIDE 0.9% FLUSH 10 ML FLUSH IV FLUSH SCH ×2 (09:00→21:00)
[2016-08-27 12:00] VITALS: BP 110/80; PULSE 80; RESP 18; TEMP 97; O2SAT 96
--- NOTE | 2016-08-27 13:08 | HHI.PR ---
Subjective Remarks Late entry. Patient evaluated this morning. Follow-up for subjective lower extremity weakness. Patient has no acute complaints. Objective Vitals Vital Signs Date Time Temp Pulse Resp B/P Pulse Ox O2 Delivery O2 Flow Rate FiO2 08/27/16 08:00 98.6 66 18 131/90 96 08/26/16 21:01 98.0 69 16 102/62 99 I/O 08/26/16 08/26/16 08/26/16 08/27/16 08/27/16 08/27/16 07:00 15:00 23:00 07:00 15:00 23:00 Intake Total 480 ml Balance 480 ml Intake Oral 480 ml # Voids 2 2 3 2 # Bowel Movements 0 1 0 0 Objective Remarks GENERAL: Obese well-developed patient in apparent distress. CARDIOVASCULAR: Normal rate and regular rhythm. RESPIRATORY: No accessory muscle use. CTAB. NEUROLOGICAL: Awake and alert. PSYCHIATRIC: Electively mute. Urinary Catheter: No Vascular Central Line Catheter: No A/P Assessment and Plan Medical Noncompliance: Patient is refusing all medical care this time to include life-saving medications, physical therapy, occupational therapy, refusing to ambulate. Patient is not allowing medical staff to perform their duties and protect her from harm and prevent her from having significant life-threatening medical complications Discussed with palliative care physician Dr. Riddle, he states that he is familiar with this patient. He indicates that patient may need to have further evaluation for competency since the patient is clearly indicating that she does not have a condition or conditions that have been objectively identified and patient has been counseled extensively on. He indicates that we'll need to get case management and legals involved for appropriate management of this patient. From medical standpoint there is nothing else that medical service can offer due to the patient's noncompliance, unwilling to participate in patient care. We'll continue to defer evaluation and recommendations to psychiatry and case management Discuss with neuropsychologist, he indicated that he evaluated patient states that patient has had a significant change in her psychiatric illness and personalities/attitude. He does not feel that the patient is capable of making her own decisions and requests psychiatry reevaluated the patient to start treating the patient for her underlying psychiatric illness Psychiatry reevaluated the patient and does agree with neuro psychologist. At this point it was indicated patient does not have capacity make appropriate judgments concerning her treatment. He feels that appointment of a healthcare surrogate would be appropriate. Psychiatry reevaluated patient and indicated that patient is unable to make her own decisions and healthcare by proxy which is her mother should be the one making medical decisions for her. 08/05/16: Meeting with Tyson guallpa, patient, colleague, nursing who notified patient that her mother is now making her medical decisions. 08/12/16: Patient was placed in restraints, IV was started, patient was given sufficient amount of sedation, however still was unable to perform MRI testing Bilateral Lower Extremity Weakness, Difficulty w/Ambulation: Subjective. Patient refusing workup and treatment Cervical CT, lumbar CT scans were performed which did not indicate any acute abnormality which would indicate bilateral lower extremity weakness. Patient is refusing PT/OT evaluations Patient refused lumbar puncture for further evaluation. Patient will not undergo MRI study Neurology Dr. Nelson, has evaluated the patient does not have any etiology of the patient's lower extremity weakness. He is recommending angiography of the lumbar spine because of her hypercoagulability state from the recent saddle emboli, however radiologist does not perform any angiography of the spine. Radiologist recommended MRI study of the thoracic and lumbar spine. However, patient was not able to perform MRI study yesterday and refuses to have it done. Neurology indicated that there is nothing else they can offer from a neurological standpoint to contribute to the patient's possible etiologies. He indicated that he will sign off and defer continue management to medical team MRI of thoracic and lumbar spine was requested but has since been cancelled since unable to complete Subacute Pulmonary Embolism 06/08/16 with Subtherapeutic INR: Patient refusing treatment during previous hospitalization, patient refused TPA, V/Q scan was performed which could not rule out the possibility of emboli Patient refusing Lovenox/Coumadin Patient indicates that she was told that she does not have any blood clots Patient was given copy of recent CTA for confirmation of her blood clot, however, patient states that that is not her It was discussed with the patient extensively that without anticoagulation she is at increased risk of embolic events to include worsening pulmonary emboli, stroke, . Palliative care was consulted for recommendations. Repeat CTA has been ordered to evaluate for residual pulmonary emboli but was cancelled as unable to be completed Selective Mutism with Paranoid Schizophrenia: chronic, Patient has been evaluated by psychiatry, Psychiatry reconsulted due to the patient refusing medical care. As indicated by psychiatry the patient has full capacity to make her own medical decisions she is alert and orientated. 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 Refusal of speaking with caregivers about her condition. Likely need evaluation for competency. Patient will likely need inpatient psychiatric management Psychiatry did reevaluated patient however patient would not let psychiatrist vocational evaluator or examine her. Psychiatrist referred back to previous notes indicate that patient has at least some degree of capacity. Psychiatrist is recommending that patient be evaluated by ethics committee It appears the patient is psychiatric illness is inhibiting her from participating in patient care and evaluation. Patient will benefit from state hospital admission for management. Will defer to psychiatry 08/19/16, psychiatry reevaluated patient still indicates patient is unable to make any of her own decisions. Agrees with mother being healthcare surrogate. Also documenting that patient anxious with marked delusions however indicating that state hospital placement is not applicable at this time. Recommending discussing with Dr. Guthrie. 08/24: Patient spoke to me for the first time today. Candidal intertrigo: under bilateral breasts. Nystatin powder. DVT Prophylaxis: Patient refusing Coumadin/Lovenox Discharge Planning Mother is medical decision maker. Awaiting getting Medicaid reinstated. Difficult discharge due to patient's unwillingness and inability to complete objective testing along with psychiatric issues. Sneha Choi Aug 27, 2016 13:08
[2016-08-27 20:00] VITALS: BP 105/62; PULSE 66; RESP 18; TEMP 96.5; O2SAT 98
[2016-08-28 08:00] VITALS: BP 100/61; PULSE 68; RESP 18; TEMP 97.1; O2SAT 98
[2016-08-28] MEDS: NYSTATIN 100,000 U/GM PWD 15 GM BTL TOPICAL SCH ×2 (08:28→21:00)
[2016-08-28] MEDS: SODIUM CHLORIDE 0.9% FLUSH 10 ML FLUSH IV FLUSH SCH ×2 (08:28→21:00)
--- NOTE | 2016-08-28 10:06 | HHI.PR ---
Subjective Remarks Follow-up for subjective lower extremity weakness. Patient declines exam stating she does not need her heart examined because "I'm not a cardiac patient ". States her breathing is fine. Objective Vitals Vital Signs Date Time Temp Pulse Resp B/P Pulse Ox O2 Delivery O2 Flow Rate FiO2 08/27/16 20:00 96.5 66 18 105/62 98 I/O 08/27/16 08/27/16 08/27/16 08/28/16 08/28/16 08/28/16 07:00 15:00 23:00 07:00 15:00 23:00 Intake Total 1080 ml 480 ml Balance 1080 ml 480 ml Intake Oral 1080 ml 480 ml # Voids 2 5 2 # Bowel Movements 0 1 0 Objective Remarks Exam based on visual observation as patient refuses physical exam. GENERAL: Obese well-developed patient in no apparent distress sitting in recliner. RESPIRATORY: No accessory muscle use. RR normal. NEUROLOGICAL: Awake and alert. PSYCHIATRIC: Speaks to me today. Normal mood and affect, but refuses exam. Urinary Catheter: No Vascular Central Line Catheter: No A/P Assessment and Plan Medical Noncompliance: Patient is refusing all medical care this time to include life-saving medications, physical therapy, occupational therapy, refusing to ambulate. Patient is not allowing medical staff to perform their duties and protect her from harm and prevent her from having significant life-threatening medical complications Discussed with palliative care physician Dr. Riddle, he states that he is familiar with this patient. He indicates that patient may need to have further evaluation for competency since the patient is clearly indicating that she does not have a condition or conditions that have been objectively identified and patient has been counseled extensively on. He indicates that we'll need to get case management and legals involved for appropriate management of this patient. From medical standpoint there is nothing else that medical service can offer due to the patient's noncompliance, unwilling to participate in patient care. We'll continue to defer evaluation and recommendations to psychiatry and case management Discuss with neuropsychologist, he indicated that he evaluated patient states that patient has had a significant change in her psychiatric illness and personalities/attitude. He does not feel that the patient is capable of making her own decisions and requests psychiatry reevaluated the patient to start treating the patient for her underlying psychiatric illness Psychiatry reevaluated the patient and does agree with neuro psychologist. At this point it was indicated patient does not have capacity make appropriate judgments concerning her treatment. He feels that appointment of a healthcare surrogate would be appropriate. Psychiatry reevaluated patient and indicated that patient is unable to make her own decisions and healthcare by proxy which is her mother should be the one making medical decisions for her. 08/05/16: Meeting with Tyson guallpa, patient, colleague, nursing who notified patient that her mother is now making her medical decisions. 08/12/16: Patient was placed in restraints, IV was started, patient was given sufficient amount of sedation, however still was unable to perform MRI testing 08/28/16: Refuses exam Bilateral Lower Extremity Weakness, Difficulty w/Ambulation: Subjective. Patient refusing workup and treatment Cervical CT, lumbar CT scans were performed which did not indicate any acute abnormality which would indicate bilateral lower extremity weakness. Patient is refusing PT/OT evaluations Patient refused lumbar puncture for further evaluation. Patient will not undergo MRI study Neurology Dr. Nelson, has evaluated the patient does not have any etiology of the patient's lower extremity weakness. He is recommending angiography of the lumbar spine because of her hypercoagulability state from the recent saddle emboli, however radiologist does not perform any angiography of the spine. Radiologist recommended MRI study of the thoracic and lumbar spine. However, patient was not able to perform MRI study yesterday and refuses to have it done. Neurology indicated that there is nothing else they can offer from a neurological standpoint to contribute to the patient's possible etiologies. He indicated that he will sign off and defer continue management to medical team MRI of thoracic and lumbar spine was requested but has since been cancelled since unable to complete Subacute Pulmonary Embolism 06/08/16 with Subtherapeutic INR: Patient refusing treatment during previous hospitalization, patient refused TPA, V/Q scan was performed which could not rule out the possibility of emboli Patient refusing Lovenox/Coumadin Patient indicates that she was told that she does not have any blood clots Patient was given copy of recent CTA for confirmation of her blood clot, however, patient states that that is not her It was discussed with the patient extensively that without anticoagulation she is at increased risk of embolic events to include worsening pulmonary emboli, stroke, . Palliative care was consulted for recommendations. Repeat CTA has been ordered to evaluate for residual pulmonary emboli but was cancelled as unable to be completed Selective Mutism with Paranoid Schizophrenia: chronic, Patient has been evaluated by psychiatry, Psychiatry reconsulted due to the patient refusing medical care. As indicated by psychiatry the patient has full capacity to make her own medical decisions she is alert and orientated. 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 Refusal of speaking with caregivers about her condition. Likely need evaluation for competency. Patient will likely need inpatient psychiatric management Psychiatry did reevaluated patient however patient would not let psychiatrist channel man or examine her. Psychiatrist referred back to previous notes indicate that patient has at least some degree of capacity. Psychiatrist is recommending that patient be evaluated by ethics committee It appears the patient is psychiatric illness is inhibiting her from participating in patient care and evaluation. Patient will benefit from state hospital admission for management. Will defer to psychiatry 08/19/16, psychiatry reevaluated patient still indicates patient is unable to make any of her own decisions. Agrees with mother being healthcare surrogate. Also documenting that patient anxious with marked delusions however indicating that state hospital placement is not applicable at this time. Recommending discussing with Dr. Guthrie. 08/28/16: Patient now intermittently speaks with me but not every day. Candidal intertrigo: under bilateral breasts. Nystatin powder. DVT Prophylaxis: Patient refusing Coumadin/Lovenox Discharge Planning Mother is medical decision maker. Awaiting getting Medicaid reinstated. Difficult discharge due to patient's unwillingness and inability to complete objective testing along with psychiatric issues. Sneha Choi Aug 28, 2016 10:06
[2016-08-28 20:00] VITALS: BP 146/78; PULSE 80; RESP 16; TEMP 98.1; O2SAT 100
[2016-08-29 08:00] VITALS: BP 116/76; PULSE 61; RESP 19; TEMP 96.2; O2SAT 99
[2016-08-29] MEDS: SODIUM CHLORIDE 0.9% FLUSH 10 ML FLUSH IV FLUSH SCH ×2 (09:00→21:00)
[2016-08-29] MEDS: NYSTATIN 100,000 U/GM PWD 15 GM BTL TOPICAL SCH ×2 (09:00→21:00)
--- NOTE | 2016-08-29 11:41 | HHI.PR ---
Subjective Remarks Follow-up for subjective lower extremity weakness. Patient states that she does not need her heart examined stating "I'm not a cardiac patient". When I told her we always do a heart and lung exam she states "My breathing's fine". Objective Vitals Vital Signs Date Time Temp Pulse Resp B/P Pulse Ox O2 Delivery O2 Flow Rate FiO2 08/29/16 08:00 96.2 61 19 116/76 99 08/28/16 20:00 98.1 80 16 146/78 100 I/O 08/28/16 08/28/16 08/28/16 08/29/16 08/29/16 08/29/16 07:00 15:00 23:00 07:00 15:00 23:00 Intake Total 480 ml 600 ml 240 ml 100 ml Output Total 1 ml Balance 480 ml 599 ml 240 ml 100 ml Intake Oral 480 ml 600 ml 240 ml 100 ml Stool Total 1 ml # Voids 2 4 3 # Bowel Movements 0 1 Objective Remarks Exam based on visual observation as patient refuses physical exam. GENERAL: Obese well-developed patient in no apparent distress sitting in recliner. RESPIRATORY: No accessory muscle use. RR normal. NEUROLOGICAL: Awake and alert. PSYCHIATRIC: Speaks to me today. Normal mood and affect, but refuses exam. Urinary Catheter: No Vascular Central Line Catheter: No A/P Assessment and Plan Medical Noncompliance: Patient is refusing all medical care this time to include life-saving medications, physical therapy, occupational therapy, refusing to ambulate. Patient is not allowing medical staff to perform their duties and protect her from harm and prevent her from having significant life-threatening medical complications Discussed with palliative care physician Dr. Riddle, he states that he is familiar with this patient. He indicates that patient may need to have further evaluation for competency since the patient is clearly indicating that she does not have a condition or conditions that have been objectively identified and patient has been counseled extensively on. He indicates that we'll need to get case management and legals involved for appropriate management of this patient. From medical standpoint there is nothing else that medical service can offer due to the patient's noncompliance, unwilling to participate in patient care. We'll continue to defer evaluation and recommendations to psychiatry and case management Discuss with neuropsychologist, he indicated that he evaluated patient states that patient has had a significant change in her psychiatric illness and personalities/attitude. He does not feel that the patient is capable of making her own decisions and requests psychiatry reevaluated the patient to start treating the patient for her underlying psychiatric illness Psychiatry reevaluated the patient and does agree with neuro psychologist. At this point it was indicated patient does not have capacity make appropriate judgments concerning her treatment. He feels that appointment of a healthcare surrogate would be appropriate. Psychiatry reevaluated patient and indicated that patient is unable to make her own decisions and healthcare by proxy which is her mother should be the one making medical decisions for her. 08/05/16: Meeting with Tyson guallpa, patient, colleague, nursing who notified patient that her mother is now making her medical decisions. 08/12/16: Patient was placed in restraints, IV was started, patient was given sufficient amount of sedation, however still was unable to perform MRI testing Refuses exams Bilateral Lower Extremity Weakness, Difficulty w/Ambulation: Subjective. Patient refusing workup and treatment Cervical CT, lumbar CT scans were performed which did not indicate any acute abnormality which would indicate bilateral lower extremity weakness. Patient is refusing PT/OT evaluations Patient refused lumbar puncture for further evaluation. Patient will not undergo MRI study Neurology Dr. Nelson, has evaluated the patient does not have any etiology of the patient's lower extremity weakness. He is recommending angiography of the lumbar spine because of her hypercoagulability state from the recent saddle emboli, however radiologist does not perform any angiography of the spine. Radiologist recommended MRI study of the thoracic and lumbar spine. However, patient was not able to perform MRI study yesterday and refuses to have it done. Neurology indicated that there is nothing else they can offer from a neurological standpoint to contribute to the patient's possible etiologies. He indicated that he will sign off and defer continue management to medical team MRI of thoracic and lumbar spine was requested but has since been cancelled since unable to complete Subacute Pulmonary Embolism 06/08/16 with Subtherapeutic INR: Patient refusing treatment during previous hospitalization, patient refused TPA, V/Q scan was performed which could not rule out the possibility of emboli Patient refusing Lovenox/Coumadin Patient indicates that she was told that she does not have any blood clots Patient was given copy of recent CTA for confirmation of her blood clot, however, patient states that that is not her It was discussed with the patient extensively that without anticoagulation she is at increased risk of embolic events to include worsening pulmonary emboli, stroke, . Palliative care was consulted for recommendations. Repeat CTA has been ordered to evaluate for residual pulmonary emboli but was cancelled as unable to be completed Selective Mutism with Paranoid Schizophrenia: chronic, Patient has been evaluated by psychiatry, Psychiatry reconsulted due to the patient refusing medical care. As indicated by psychiatry the patient has full capacity to make her own medical decisions she is alert and orientated. 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 Refusal of speaking with caregivers about her condition. Likely need evaluation for competency. Patient will likely need inpatient psychiatric management Psychiatry did reevaluated patient however patient would not let psychiatrist underwriting analyst or examine her. Psychiatrist referred back to previous notes indicate that patient has at least some degree of capacity. Psychiatrist is recommending that patient be evaluated by ethics committee It appears the patient is psychiatric illness is inhibiting her from participating in patient care and evaluation. Patient will benefit from state hospital admission for management. Will defer to psychiatry 08/19/16, psychiatry reevaluated patient still indicates patient is unable to make any of her own decisions. Agrees with mother being healthcare surrogate. Also documenting that patient anxious with marked delusions however indicating that state hospital placement is not applicable at this time. Recommending discussing with Dr. Guthrie. Patient now intermittently speaks Candidal intertrigo: under bilateral breasts. Nystatin powder. DVT Prophylaxis: Patient refusing Coumadin/Lovenox Discharge Planning Mother is medical decision maker. Awaiting getting Medicaid reinstated. Difficult discharge due to patient's unwillingness and inability to complete objective testing along with psychiatric issues. Sneha Choi Aug 29, 2016 11:41
[2016-08-29 20:00] VITALS: BP 117/72; PULSE 64; RESP 20; TEMP 97.2; O2SAT 99
[2016-08-30 08:00] VITALS: BP 119/70; PULSE 70; RESP 18; TEMP 97.4; O2SAT 99
[2016-08-30] MEDS: NYSTATIN 100,000 U/GM PWD 15 GM BTL TOPICAL SCH (09:00)
[2016-08-30] MEDS: SODIUM CHLORIDE 0.9% FLUSH 10 ML FLUSH IV FLUSH SCH (09:00)
--- NOTE | 2016-08-30 11:50 | HHI.PR ---
Subjective Remarks Patient seen and examined today for follow-up on noncompliance and subjective weakness. Patient pertaining to sleep today. Would not talk or acknowledge that I was in the room. Nursing staff indicates that patient refusing meals periodically. Nursing also indicated that patient was found to be standing in her room on her own by nursing staff and well documented. Objective Vitals Vital Signs Date Time Temp Pulse Resp B/P Pulse Ox O2 Delivery O2 Flow Rate FiO2 08/30/16 08:00 97.4 70 18 119/70 99 08/29/16 20:00 97.2 64 20 117/72 99 I/O 08/29/16 08/29/16 08/29/16 08/30/16 08/30/16 08/30/16 07:00 15:00 23:00 07:00 15:00 23:00 Intake Total 240 ml 100 ml 240 ml Balance 240 ml 100 ml 240 ml Intake Oral 240 ml 100 ml 240 ml # Voids 3 1 # Bowel Movements 1 1 Objective Remarks GENERAL: Well-developed, well-nourished, in no acute distress. Urinary Catheter: No Vascular Central Line Catheter: No A/P Assessment and Plan Medical Noncompliance: Patient is refusing all medical care this time to include life-saving medications, physical therapy, occupational therapy, refusing to ambulate. Patient is not allowing medical staff to perform their duties and protect her from harm and prevent her from having significant life-threatening medical complications Discussed with palliative care physician Dr. Riddle, he states that he is familiar with this patient. He indicates that patient may need to have further evaluation for competency since the patient is clearly indicating that she does not have a condition or conditions that have been objectively identified and patient has been counseled extensively on. He indicates that we'll need to get case management and legals involved for appropriate management of this patient. From medical standpoint there is nothing else that medical service can offer due to the patient's noncompliance, unwilling to participate in patient care. We'll continue to defer evaluation and recommendations to psychiatry and case management Discuss with neuro psychiatrist, he indicated that he evaluated patient states that patient has had a significant change in her psychiatric illness and personalities/attitude. He does not feel that the patient is capable of making her own decisions and requests psychiatry reevaluated the patient to start treating the patient for her underlying psychiatric illness Psychiatry reevaluated the patient and does agree with neuro psychologist. At this point it was indicated patient does not have capacity make appropriate judgments concerning her treatment. He feels that appointment of a healthcare surrogate would be appropriate. Psychiatry reevaluated patient and indicated that patient is unable to make her own decisions and healthcare by proxy which is her mother should be the one making medical decisions for her. 08/05/16: Meeting with Tyson guallpa, patient, myself, nursing who notified patient that her mother is now making her medical decisions. Patient was not too thrilled about that situation. 08/12/16: Patient was placed in restraints, IV was started, patient was given sufficient amount of sedation, however still was unable to perform MRI testing Bilateral Lower Extremity Weakness, Difficulty w/Ambulation: Subjective. Patient refusing workup and treatment Cervical CT, lumbar CT scans were performed which did not indicate any acute abnormality which would indicate bilateral lower extremity weakness. Patient is refusing PT/OT evaluations Patient refused lumbar puncture for further evaluation. Patient will not undergo MRI study Neurology Dr. Nelson, has evaluated the patient does not have any etiology of the patient's lower extremity weakness. He is recommending angiography of the lumbar spine because of her hypercoagulability state from the recent saddle emboli, however radiologist does not perform any angiography of the spine. Radiologist recommended MRI study of the thoracic and lumbar spine. However, patient was not able to perform MRI study yesterday and refuses to have it done. Neurology indicated that there is nothing else they can offer from a neurological standpoint to contribute to the patient's possible etiologies. He indicated that he will sign off and defer continue management to medical team MRI of thoracic and lumbar spine has been requested Subacute Pulmonary Embolism 06/08/16 with Subtherapeutic INR: Patient refusing treatment during previous hospitalization, patient refused TPA, V/Q scan was performed which could not rule out the possibility of emboli Patient refusing Lovenox/Coumadin Patient indicates that she was told that she does not have any blood clots Patient was given copy of recent CTA for confirmation of her blood clot, however, patient states that that is not her It was discussed with the patient extensively that without anticoagulation she is at increased risk of embolic events to include worsening pulmonary emboli, stroke, . Palliative care was consulted for recommendations. Repeat CTA has been ordered to evaluate for residual pulmonary emboli Selective Mutism with Paranoid Schizophrenia: chronic, Patient has been evaluated by psychiatry, Psychiatry reconsulted due to the patient refusing medical care. As indicated by psychiatry the patient has full capacity to make her own medical decisions she is alert and orientated. 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 Refusal of speaking with caregivers about her condition. Likely need evaluation for competency. Patient will likely need inpatient psychiatric management Psychiatry did reevaluated patient however patient would not let psychiatrist senior oracle applications developer or examine her. Psychiatrist referred back to previous notes indicate that patient has at least some degree of capacity. Psychiatrist is recommending that patient be evaluated by ethics committee It appears the patient is psychiatric illness is inhibiting her from participating in patient care and evaluation. Patient will benefit from state hospital [facility] for management. Will defer to psychiatry 08/19/16, did discuss case with case management. Notified him that it was unsuccessful in trying to obtain the objective data needed with MRI and CTs because patient was still uncooperative despite sedation. Discussed with him that it has been indicated by psychiatry as well as neuropsychiatry that the patient would be appropriate for [facility]. Will reconsult psychiatry for reevaluation and assistance in transferring patient to [facility] 08/19/16, psychiatry reevaluated patient still indicates patient is unable to make any of her own decisions. Agrees with mother being healthcare surrogate. Also documenting that patient anxious with marked delusions however indicating that state hospital placement is not applicable at this time. Recommending discussing with Dr. Beasley Candidal intertrigo: under bilateral breasts. Nystatin powder. DVT Prophylaxis: Patient refusing Coumadin/Lovenox Discharge Planning Unable to determine discharge planning this time as patient was refusing all medical treatment, management, therapies. Case management consulted for possible administration evaluation with ethics, legal. real estate sales manager's note from 08/01/16 indicates that he has spoken with patient's mother who agreed to assist in medical decision-making and assist change healthcare to get Medicaid reinstated. Steven Mccray Aug 30, 2016 11:49
[2016-08-30] MEDS ORDERED: ONDANSETRON ODT 4 MG TAB PO PRN (16:00)
[2016-08-30 20:00] VITALS: BP 109/72; PULSE 76; RESP 20; TEMP 97.5; O2SAT 97
[2016-08-31 08:00] VITALS: BP 122/81; PULSE 60; RESP 19; TEMP 98.3; O2SAT 99
--- NOTE | 2016-08-31 09:39 | HHI.PR ---
Subjective Remarks Patient seen and examined today for noncompliance and subjective lower extremity weakness. Patient sitting up in bed when entering the room. She is not speaking to me, she is not acknowledging that I'm in the room. She did not want me to examine her. Objective Vitals Vital Signs Date Time Temp Pulse Resp B/P Pulse Ox O2 Delivery O2 Flow Rate FiO2 08/31/16 08:00 98.3 60 19 122/81 99 08/30/16 20:00 97.5 76 20 109/72 97 I/O 08/30/16 08/30/16 08/30/16 08/31/16 08/31/16 08/31/16 06:59 14:59 22:59 06:59 14:59 22:59 Intake Total 240 ml 480 ml 1020 ml Balance 240 ml 480 ml 1020 ml Intake Oral 240 ml 480 ml 1020 ml # Voids 1 2 3 # Bowel Movements 1 1 0 Objective Remarks GENERAL: Well-developed, well-nourished, in no acute distress. Urinary Catheter: No Vascular Central Line Catheter: No A/P Assessment and Plan Medical Noncompliance: Patient is refusing all medical care this time to include life-saving medications, physical therapy, occupational therapy, refusing to ambulate. Patient is not allowing medical staff to perform their duties and protect her from harm and prevent her from having significant life-threatening medical complications Discussed with palliative care physician Dr. Riddle, he states that he is familiar with this patient. He indicates that patient may need to have further evaluation for competency since the patient is clearly indicating that she does not have a condition or conditions that have been objectively identified and patient has been counseled extensively on. He indicates that we'll need to get case management and legals involved for appropriate management of this patient. From medical standpoint there is nothing else that medical service can offer due to the patient's noncompliance, unwilling to participate in patient care. We'll continue to defer evaluation and recommendations to psychiatry and case management Discuss with neuro psychiatrist, he indicated that he evaluated patient states that patient has had a significant change in her psychiatric illness and personalities/attitude. He does not feel that the patient is capable of making her own decisions and requests psychiatry reevaluated the patient to start treating the patient for her underlying psychiatric illness Psychiatry reevaluated the patient and does agree with neuro psychologist. At this point it was indicated patient does not have capacity make appropriate judgments concerning her treatment. He feels that appointment of a healthcare surrogate would be appropriate. Psychiatry reevaluated patient and indicated that patient is unable to make her own decisions and healthcare by proxy which is her mother should be the one making medical decisions for her. 08/05/16: Meeting with Tyson guallpa, patient, myself, nursing who notified patient that her mother is now making her medical decisions. Patient was not too thrilled about that situation. 08/12/16: Patient was placed in restraints, IV was started, patient was given sufficient amount of sedation, however still was unable to perform MRI testing Bilateral Lower Extremity Weakness, Difficulty w/Ambulation: Subjective. Patient refusing workup and treatment Cervical CT, lumbar CT scans were performed which did not indicate any acute abnormality which would indicate bilateral lower extremity weakness. Patient is refusing PT/OT evaluations Patient refused lumbar puncture for further evaluation. Patient will not undergo MRI study Neurology Dr. Nelson, has evaluated the patient does not have any etiology of the patient's lower extremity weakness. He is recommending angiography of the lumbar spine because of her hypercoagulability state from the recent saddle emboli, however radiologist does not perform any angiography of the spine. Radiologist recommended MRI study of the thoracic and lumbar spine. However, patient was not able to perform MRI study yesterday and refuses to have it done. Neurology indicated that there is nothing else they can offer from a neurological standpoint to contribute to the patient's possible etiologies. He indicated that he will sign off and defer continue management to medical team MRI of thoracic and lumbar spine has been requested Subacute Pulmonary Embolism 06/08/16 with Subtherapeutic INR: Patient refusing treatment during previous hospitalization, patient refused TPA, V/Q scan was performed which could not rule out the possibility of emboli Patient refusing Lovenox/Coumadin Patient indicates that she was told that she does not have any blood clots Patient was given copy of recent CTA for confirmation of her blood clot, however, patient states that that is not her It was discussed with the patient extensively that without anticoagulation she is at increased risk of embolic events to include worsening pulmonary emboli, stroke, . Palliative care was consulted for recommendations. Repeat CTA has been ordered to evaluate for residual pulmonary emboli Selective Mutism with Paranoid Schizophrenia: chronic, Patient has been evaluated by psychiatry, Psychiatry reconsulted due to the patient refusing medical care. As indicated by psychiatry the patient has full capacity to make her own medical decisions she is alert and orientated. 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 Refusal of speaking with caregivers about her condition. Likely need evaluation for competency. Patient will likely need inpatient psychiatric management Psychiatry did reevaluated patient however patient would not let psychiatrist membership sales manager or examine her. Psychiatrist referred back to previous notes indicate that patient has at least some degree of capacity. Psychiatrist is recommending that patient be evaluated by ethics committee It appears the patient is psychiatric illness is inhibiting her from participating in patient care and evaluation. Patient will benefit from state hospital admission for management. Will defer to psychiatry 08/19/16, did discuss case with case management. Notified him that it was unsuccessful in trying to obtain the objective data needed with MRI and CTs because patient was still uncooperative despite sedation. Discussed with him that it has been indicated by psychiatry as well as neuropsychiatry that the patient would be appropriate for [facility]. Will reconsult psychiatry for reevaluation and assistance in transferring patient to [facility] 08/19/16, psychiatry reevaluated patient still indicates patient is unable to make any of her own decisions. Agrees with mother being healthcare surrogate. Also documenting that patient anxious with marked delusions however indicating that state hospital placement is not applicable at this time. Recommending discussing with Dr. Beasley Candidal intertrigo: under bilateral breasts. Nystatin powder. DVT Prophylaxis: Patient refusing Coumadin/Lovenox Discharge Planning Unable to determine discharge planning this time as patient was refusing all medical treatment, management, therapies. Case management consulted for possible administration evaluation with ethics, legal. litigation docket manager's note from 08/01/16 indicates that he has spoken with patient's mother who agreed to assist in medical decision-making and assist change healthcare to get Medicaid reinstated. Steven Mccray Aug 31, 2016 09:39
[2016-08-31 20:00] VITALS: BP 104/70; PULSE 69; RESP 18; TEMP 98.1; O2SAT 97
[2016-09-01 08:00] VITALS: BP 121/82; PULSE 68; RESP 18; TEMP 97; O2SAT 99
--- NOTE | 2016-09-01 10:07 | HHI.PR ---
Subjective Remarks Patient seen and examined today for noncompliance, subjective lower extremity weakness. Patient without any significant change in her psychiatric condition. Patient still withdrawn from participation in medical care. She is covering her face with her she indicating that she does not want to speak, does not want to be examined. Objective Vitals Vital Signs Date Time Temp Pulse Resp B/P Pulse Ox O2 Delivery O2 Flow Rate FiO2 08/31/16 20:00 98.1 69 18 104/70 97 I/O 08/31/16 08/31/16 08/31/16 09/01/16 09/01/16 09/01/16 07:00 15:00 23:00 07:00 15:00 23:00 Intake Total 1020 ml 580 ml 480 ml Balance 1020 ml 580 ml 480 ml Intake Oral 1020 ml 580 ml 480 ml # Voids 3 7 1 # Bowel Movements 0 1 Objective Remarks GENERAL: Well-developed, well-nourished, in no acute distress. Urinary Catheter: No Vascular Central Line Catheter: No A/P Assessment and Plan Medical Noncompliance: Patient is refusing all medical care this time to include life-saving medications, physical therapy, occupational therapy, refusing to ambulate. Patient is not allowing medical staff to perform their duties and protect her from harm and prevent her from having significant life-threatening medical complications Discussed with palliative care physician Dr. Riddle, he states that he is familiar with this patient. He indicates that patient may need to have further evaluation for competency since the patient is clearly indicating that she does not have a condition or conditions that have been objectively identified and patient has been counseled extensively on. He indicates that we'll need to get case management and legals involved for appropriate management of this patient. From medical standpoint there is nothing else that medical service can offer due to the patient's noncompliance, unwilling to participate in patient care. We'll continue to defer evaluation and recommendations to psychiatry and case management Discuss with neuro psychiatrist, he indicated that he evaluated patient states that patient has had a significant change in her psychiatric illness and personalities/attitude. He does not feel that the patient is capable of making her own decisions and requests psychiatry reevaluated the patient to start treating the patient for her underlying psychiatric illness Psychiatry reevaluated the patient and does agree with neuro psychologist. At this point it was indicated patient does not have capacity make appropriate judgments concerning her treatment. He feels that appointment of a healthcare surrogate would be appropriate. Psychiatry reevaluated patient and indicated that patient is unable to make her own decisions and healthcare by proxy which is her mother should be the one making medical decisions for her. 08/05/16: Meeting with Tyson guallpa, patient, myself, nursing who notified patient that her mother is now making her medical decisions. Patient was not too thrilled about that situation. 08/12/16: Patient was placed in restraints, IV was started, patient was given sufficient amount of sedation, however still was unable to perform MRI testing Bilateral Lower Extremity Weakness, Difficulty w/Ambulation: Subjective. Patient refusing workup and treatment Cervical CT, lumbar CT scans were performed which did not indicate any acute abnormality which would indicate bilateral lower extremity weakness. Patient is refusing PT/OT evaluations Patient refused lumbar puncture for further evaluation. Patient will not undergo MRI study Neurology Dr. Nelson, has evaluated the patient does not have any etiology of the patient's lower extremity weakness. He is recommending angiography of the lumbar spine because of her hypercoagulability state from the recent saddle emboli, however radiologist does not perform any angiography of the spine. Radiologist recommended MRI study of the thoracic and lumbar spine. However, patient was not able to perform MRI study yesterday and refuses to have it done. Neurology indicated that there is nothing else they can offer from a neurological standpoint to contribute to the patient's possible etiologies. He indicated that he will sign off and defer continue management to medical team MRI of thoracic and lumbar spine has been requested Subacute Pulmonary Embolism 06/08/16 with Subtherapeutic INR: Patient refusing treatment during previous hospitalization, patient refused TPA, V/Q scan was performed which could not rule out the possibility of emboli Patient refusing Lovenox/Coumadin Patient indicates that she was told that she does not have any blood clots Patient was given copy of recent CTA for confirmation of her blood clot, however, patient states that that is not her It was discussed with the patient extensively that without anticoagulation she is at increased risk of embolic events to include worsening pulmonary emboli, stroke, . Palliative care was consulted for recommendations. Repeat CTA has been ordered to evaluate for residual pulmonary emboli Selective Mutism with Paranoid Schizophrenia: chronic, Patient has been evaluated by psychiatry, Psychiatry reconsulted due to the patient refusing medical care. As indicated by psychiatry the patient has full capacity to make her own medical decisions she is alert and orientated. 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 Refusal of speaking with caregivers about her condition. Likely need evaluation for competency. Patient will likely need inpatient psychiatric management Psychiatry did reevaluated patient however patient would not let psychiatrist analytical tech or examine her. Psychiatrist referred back to previous notes indicate that patient has at least some degree of capacity. Psychiatrist is recommending that patient be evaluated by ethics committee It appears the patient is psychiatric illness is inhibiting her from participating in patient care and evaluation. Patient will benefit from state hospital admission for management. Will defer to psychiatry 08/19/16, did discuss case with case management. Notified him that it was unsuccessful in trying to obtain the objective data needed with MRI and CTs because patient was still uncooperative despite sedation. Discussed with him that it has been indicated by psychiatry as well as neuropsychiatry that the patient would be appropriate for [facility]. Will reconsult psychiatry for reevaluation and assistance in transferring patient to [facility] 08/19/16, psychiatry reevaluated patient still indicates patient is unable to make any of her own decisions. Agrees with mother being healthcare surrogate. Also documenting that patient anxious with marked delusions however indicating that state hospital placement is not applicable at this time. Recommending discussing with Dr. Beasley Candidal intertrigo: under bilateral breasts. Nystatin powder. DVT Prophylaxis: Patient refusing Coumadin/Lovenox Discharge Planning Unable to determine discharge planning this time as patient was refusing all medical treatment, management, therapies. Case management consulted for possible administration evaluation with ethics, legal. analytics senior manager's note from 08/01/16 indicates that he has spoken with patient's mother who agreed to assist in medical decision-making and assist change healthcare to get Medicaid reinstated. Steven Mccray Sep 01, 2016 10:07
[2016-09-01 20:00] VITALS: BP 120/70; PULSE 64; RESP 16; TEMP 97.9; O2SAT 97
[2016-09-02 08:00] VITALS: BP 115/75; PULSE 54; RESP 16; TEMP 97.2; O2SAT 94
--- NOTE | 2016-09-02 09:14 | HHI.PR ---
Subjective Remarks Patient seen and examined today for noncompliance and subjective weakness. Patient denies any new complaints. Patient would not allow me to examine her. She is lying in bed continues to refuse care. Objective Vitals Vital Signs Date Time Temp Pulse Resp B/P Pulse Ox O2 Delivery O2 Flow Rate FiO2 09/01/16 20:00 97.9 64 16 120/70 97 I/O 09/01/16 09/01/16 09/01/16 09/02/16 09/02/16 09/02/16 07:00 15:00 23:00 07:00 15:00 23:00 Intake Total 480 ml 600 ml 480 ml Balance 480 ml 600 ml 480 ml Intake Oral 480 ml 600 ml 480 ml # Voids 1 4 1 # Bowel Movements 1 1 Objective Remarks GENERAL: Well-developed, well-nourished, in no acute distress. Urinary Catheter: No Vascular Central Line Catheter: No A/P Assessment and Plan Medical Noncompliance: Patient is refusing all medical care this time to include life-saving medications, physical therapy, occupational therapy, refusing to ambulate. Patient is not allowing medical staff to perform their duties and protect her from harm and prevent her from having significant life-threatening medical complications Discussed with palliative care physician Dr. Riddle, he states that he is familiar with this patient. He indicates that patient may need to have further evaluation for competency since the patient is clearly indicating that she does not have a condition or conditions that have been objectively identified and patient has been counseled extensively on. He indicates that we'll need to get case management and legals involved for appropriate management of this patient. From medical standpoint there is nothing else that medical service can offer due to the patient's noncompliance, unwilling to participate in patient care. We'll continue to defer evaluation and recommendations to psychiatry and case management Discuss with neuro psychiatrist, he indicated that he evaluated patient states that patient has had a significant change in her psychiatric illness and personalities/attitude. He does not feel that the patient is capable of making her own decisions and requests psychiatry reevaluated the patient to start treating the patient for her underlying psychiatric illness Psychiatry reevaluated the patient and does agree with neuro psychologist. At this point it was indicated patient does not have capacity make appropriate judgments concerning her treatment. He feels that appointment of a healthcare surrogate would be appropriate. Psychiatry reevaluated patient and indicated that patient is unable to make her own decisions and healthcare by proxy which is her mother should be the one making medical decisions for her. 08/05/16: Meeting with Tyson guallpa, patient, myself, nursing who notified patient that her mother is now making her medical decisions. Patient was not too thrilled about that situation. 08/12/16: Patient was placed in restraints, IV was started, patient was given sufficient amount of sedation, however still was unable to perform MRI testing Bilateral Lower Extremity Weakness, Difficulty w/Ambulation: Subjective. Patient refusing workup and treatment Cervical CT, lumbar CT scans were performed which did not indicate any acute abnormality which would indicate bilateral lower extremity weakness. Patient is refusing PT/OT evaluations Patient refused lumbar puncture for further evaluation. Patient will not undergo MRI study Neurology Dr. Nelson, has evaluated the patient does not have any etiology of the patient's lower extremity weakness. He is recommending angiography of the lumbar spine because of her hypercoagulability state from the recent saddle emboli, however radiologist does not perform any angiography of the spine. Radiologist recommended MRI study of the thoracic and lumbar spine. However, patient was not able to perform MRI study yesterday and refuses to have it done. Neurology indicated that there is nothing else they can offer from a neurological standpoint to contribute to the patient's possible etiologies. He indicated that he will sign off and defer continue management to medical team MRI of thoracic and lumbar spine has been requested, unable to obtain Subacute Pulmonary Embolism 06/08/16 with Subtherapeutic INR: Patient refusing treatment during previous hospitalization, patient refused TPA, V/Q scan was performed which could not rule out the possibility of emboli Patient refusing Lovenox/Coumadin Patient indicates that she was told that she does not have any blood clots Patient was given copy of recent CTA for confirmation of her blood clot, however, patient states that that is not her It was discussed with the patient extensively that without anticoagulation she is at increased risk of embolic events to include worsening pulmonary emboli, stroke, . Palliative care was consulted for recommendations. Repeat CTA was ordered to evaluate for residual pulmonary emboli, patient deferring test Selective Mutism with Paranoid Schizophrenia: chronic, Patient has been evaluated by psychiatry, Psychiatry reconsulted due to the patient refusing medical care. As indicated by psychiatry the patient has full capacity to make her own medical decisions she is alert and orientated. 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 Refusal of speaking with caregivers about her condition. Likely need evaluation for competency. Patient will likely need inpatient psychiatric management Psychiatry did reevaluated patient however patient would not let psychiatrist digital media producer or examine her. Psychiatrist referred back to previous notes indicate that patient has at least some degree of capacity. Psychiatrist is recommending that patient be evaluated by ethics committee It appears the patient is psychiatric illness is inhibiting her from participating in patient care and evaluation. Patient will benefit from state hospital admission for management. Will defer to psychiatry 08/19/16, did discuss case with case management. Notified him that it was unsuccessful in trying to obtain the objective data needed with MRI and CTs because patient was still uncooperative despite sedation. Discussed with him that it has been indicated by psychiatry as well as neuropsychiatry that the patient would be appropriate for [facility]. Will reconsult psychiatry for reevaluation and assistance in transferring patient to [facility] 08/19/16, psychiatry reevaluated patient still indicates patient is unable to make any of her own decisions. Agrees with mother being healthcare surrogate. Also documenting that patient anxious with marked delusions however indicating that state hospital placement is not applicable at this time. Recommending discussing with Dr. Beasley Candidal intertrigo: under bilateral breasts. Nystatin powder. DVT Prophylaxis: Patient refusing Coumadin/Lovenox Discharge Planning Unable to determine discharge planning this time as patient was refusing all medical treatment, management, therapies. Case management consulted for administration evaluation with ethics, legal. e business manager's note from 08/01/16 indicates that he has spoken with patient's mother who agreed to assist in medical decision-making and assist change healthcare to get Medicaid reinstated. Steven Mccray Sep 02, 2016 09:14
--- NOTE | 2016-09-02 16:01 | HHI.PR ---
Neuropsych Emotional Emotional: UnabletoAssess: Emotional, Anxious/Fearful, Depressed/Sad, Hostile/ Resentful, Irritable/Angry/Frustrate, Labile, Constricted/Blunted Behavior Behavior: Unable to Asses: Behavior, Coping/Acceptance, Cooperative w/ Treatment, Motivation, Frustration Tolerance/[place], Impulsive/Agitated, Suicidal/ Homicidal Risk Cognitive Cognitive: Unable to Asses: Cognitive, Attention/Concentration, Confused/ Orientation, Insight/Awareness, Judgement/Problem-Solving, Memory Progress Notes/Response to Tx Contents of Sessions: Adjustment Time with Patient: 30 minutes Premorbid psychological status Premorbid Cognitive, Emotional and Behavioral Status: Unstable. The patient's past history is relatively unknown except for her long psychiatric history. Behavioral Reactions of Patient and Family/Support System: Unstable. The patient has been homeless for many years. Emotional/Behavioral Status of Patient and Family/Support System: Unstable. Pertinent issues, if appropriate to this patients clinical care, are described in detail above. Maximizing acute care outcome The essential issue presently is that the patient is entirely noncompliant with medical directives. Getting her to consent to treatment, be it either psychiatric or medical, is essential to maximize her care. However, she is unwilling to consent. Anticipated Problems Ongoing areas of concern will include behavioral impulsivity, lack of insight and judgment, which is not expected to improve with time or treatment. Treatment Plan This clinician will continue to follow with you throughout the course of this patients hospitalization, and I will be available to meet with the patients family/support system to facilitate their understanding and the ongoing care of their family member. The goals of neuropsychological intervention shall be both educational and supportive to the family/support system as is deemed clinically appropriate. Impression This 40 year old woman who is well known to me from her previous medical hospitalization for untreated PE, who was at that time was able to become a partner in her own healthcare when provided explanation, now presents with similar significant health concerns, but now exhibits increased paranoid ideation and a refusal to accept medical care for these significant health concerns. Her neurobehavioral change from her first hospitalization to her present hospitalization is striking such that she not only would not acknowledge the prior healthcare relationship she had with this examiner but she would not acknowledge that she is the same individual who was treated for these conditions. It is my clinical opinion that this patient's prior underlying major psychiatric disorder, paranoid schizophrenia, is exacerbated and now interferes from a neurocognitive perspective with her ability to make rational decisions of a legal, financial and medical nature. At this point, she is in my opinion demonstrated the IMPAIRED ability to appreciate a situation and its likely consequences and she demonstrates the IMPAIRED ability to manipulate information rationally. Diagnosis: (1) Paranoid schizophrenia, chronic condition with acute exacerbation Status: Acute (2) Elective mutism Status: Chronic Progress Note Narrative Ongoing follow-up of patient seen bedside. Discussed with RN. The patient remains noncommunicative with me, which has been standard with her over the past several weeks. Her psychiatric disorders are medically untreated, and as such her psychiatric disorders are exacerbated. I will continue to follow. Rosalio Jacinto PhD Sep 02, 2016 4:01 pm
[2016-09-02 20:00] VITALS: BP 99/74; PULSE 65; RESP 20; TEMP 96.4; O2SAT 100
[2016-09-03 08:00] VITALS: BP 112/79; PULSE 61; RESP 18; TEMP 97; O2SAT 97
--- NOTE | 2016-09-03 10:14 | HHI.PR ---
Subjective Remarks Patient seen and examined today for follow-up on noncompliance and subjective lower extremity weakness. Patient sitting up in bed. Denies any new complaints. Refusing to allow me to examine her. Objective Vitals Vital Signs Date Time Temp Pulse Resp B/P Pulse Ox O2 Delivery O2 Flow Rate FiO2 09/03/16 08:00 97.0 61 18 112/79 97 09/02/16 20:00 96.4 65 20 99/74 100 I/O 09/02/16 09/02/16 09/02/16 09/03/16 09/03/16 09/03/16 07:00 15:00 23:00 07:00 15:00 23:00 Intake Total 480 ml 600 ml 240 ml Output Total 1 ml Balance 480 ml 599 ml 240 ml Intake Oral 480 ml 600 ml 240 ml Stool Total 1 ml # Voids 1 3 3 # Bowel Movements 1 Objective Remarks GENERAL: Well-developed, well-nourished, in no acute distress. Urinary Catheter: No Vascular Central Line Catheter: No A/P Assessment and Plan Medical Noncompliance: Patient is refusing all medical care this time to include life-saving medications, physical therapy, occupational therapy, refusing to ambulate. Patient is not allowing medical staff to perform their duties and protect her from harm and prevent her from having significant life-threatening medical complications Discussed with palliative care physician Dr. Riddle, he states that he is familiar with this patient. He indicates that patient may need to have further evaluation for competency since the patient is clearly indicating that she does not have a condition or conditions that have been objectively identified and patient has been counseled extensively on. He indicates that we'll need to get case management and legals involved for appropriate management of this patient. From medical standpoint there is nothing else that medical service can offer due to the patient's noncompliance, unwilling to participate in patient care. We'll continue to defer evaluation and recommendations to psychiatry and case management Discuss with neuro psychiatrist, he indicated that he evaluated patient states that patient has had a significant change in her psychiatric illness and personalities/attitude. He does not feel that the patient is capable of making her own decisions and requests psychiatry reevaluated the patient to start treating the patient for her underlying psychiatric illness Psychiatry reevaluated the patient and does agree with neuro psychologist. At this point it was indicated patient does not have capacity make appropriate judgments concerning her treatment. He feels that appointment of a healthcare surrogate would be appropriate. Psychiatry reevaluated patient and indicated that patient is unable to make her own decisions and healthcare by proxy which is her mother should be the one making medical decisions for her. 08/05/16: Meeting with Tyson saloni, patient, myself, nursing who notified patient that her mother is now making her medical decisions. Patient was not too thrilled about that situation. 08/12/16: Patient was placed in restraints, IV was started, patient was given sufficient amount of sedation, however still was unable to perform MRI testing Bilateral Lower Extremity Weakness, Difficulty w/Ambulation: Subjective. Patient refusing workup and treatment Cervical CT, lumbar CT scans were performed which did not indicate any acute abnormality which would indicate bilateral lower extremity weakness. Patient is refusing PT/OT evaluations Patient refused lumbar puncture for further evaluation. Patient will not undergo MRI study Neurology Dr. Nelson, has evaluated the patient does not have any etiology of the patient's lower extremity weakness. He is recommending angiography of the lumbar spine because of her hypercoagulability state from the recent saddle emboli, however radiologist does not perform any angiography of the spine. Radiologist recommended MRI study of the thoracic and lumbar spine. However, patient was not able to perform MRI study yesterday and refuses to have it done. Neurology indicated that there is nothing else they can offer from a neurological standpoint to contribute to the patient's possible etiologies. He indicated that he will sign off and defer continue management to medical team MRI of thoracic and lumbar spine has been requested, unable to obtain Subacute Pulmonary Embolism 06/08/16 with Subtherapeutic INR: Patient refusing treatment during previous hospitalization, patient refused TPA, V/Q scan was performed which could not rule out the possibility of emboli Patient refusing Lovenox/Coumadin Patient indicates that she was told that she does not have any blood clots Patient was given copy of recent CTA for confirmation of her blood clot, however, patient states that that is not her It was discussed with the patient extensively that without anticoagulation she is at increased risk of embolic events to include worsening pulmonary emboli, stroke, . Palliative care was consulted for recommendations. Repeat CTA was ordered to evaluate for residual pulmonary emboli, patient deferring test Selective Mutism with Paranoid Schizophrenia: chronic, Patient has been evaluated by psychiatry, Psychiatry reconsulted due to the patient refusing medical care. As indicated by psychiatry the patient has full capacity to make her own medical decisions she is alert and orientated. 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 Refusal of speaking with caregivers about her condition. Likely need evaluation for competency. Patient will likely need inpatient psychiatric management Psychiatry did reevaluated patient however patient would not let psychiatrist inventory and pricing associate or examine her. Psychiatrist referred back to previous notes indicate that patient has at least some degree of capacity. Psychiatrist is recommending that patient be evaluated by ethics committee It appears the patient is psychiatric illness is inhibiting her from participating in patient care and evaluation. Patient will benefit from state hospital admission for management. Will defer to psychiatry 08/19/16, did discuss case with case management. Notified him that it was unsuccessful in trying to obtain the objective data needed with MRI and CTs because patient was still uncooperative despite sedation. Discussed with him that it has been indicated by psychiatry as well as neuropsychiatry that the patient would be appropriate for [facility]. Will reconsult psychiatry for reevaluation and assistance in transferring patient to [facility] 08/19/16, psychiatry reevaluated patient still indicates patient is unable to make any of her own decisions. Agrees with mother being healthcare surrogate. Also documenting that patient anxious with marked delusions however indicating that state hospital placement is not applicable at this time. Recommending discussing with Dr. Beasley Candidal intertrigo: under bilateral breasts. Nystatin powder. DVT Prophylaxis: Patient refusing Coumadin/Lovenox Records were reviewed, absolutely no change in treatment plan since patient still deferring all care Discharge Planning Unable to determine discharge planning this time as patient was refusing all medical treatment, management, therapies. Case management consulted for administration evaluation with ethics, legal. manager food's note from 08/01/16 indicates that he has spoken with patient's mother who agreed to assist in medical decision-making and assist change healthcare to get Medicaid reinstated. Steven Mccray Sep 03, 2016 10:14
[2016-09-03 20:00] VITALS: BP 110/74; PULSE 65; RESP 20; TEMP 97.6; O2SAT 100
[2016-09-04 08:00] VITALS: BP 116/74; PULSE 67; RESP 19; TEMP 95.6; O2SAT 99
--- NOTE | 2016-09-04 10:11 | HHI.PR ---
Subjective Remarks Patient seen and examined today for follow-up on medical noncompliance, subjective lower external weakness. Today was the first day of leave the patient is ever spoke to me. I discussed with her the need for her undergo further evaluation, participated with physical therapy, and get out of bed on a regular basis. She notified me that I am a physician speech language pathology assistant and that Dr. Owen told her that she is on bed rest so she will not get out of bed. The patient still will not allow me to examine her Objective Vitals Vital Signs Date Time Temp Pulse Resp B/P Pulse Ox O2 Delivery O2 Flow Rate FiO2 09/04/16 08:00 95.6 67 19 116/74 99 09/03/16 20:00 97.6 65 20 110/74 100 I/O 09/03/16 09/03/16 09/03/16 09/04/16 09/04/16 09/04/16 07:00 15:00 23:00 07:00 15:00 23:00 Intake Total 240 ml 630 ml 480 ml 480 ml Output Total 1 ml Balance 240 ml 630 ml 479 ml 480 ml Intake Oral 240 ml 630 ml 480 ml 480 ml Stool Total 1 ml # Voids 3 3 3 # Bowel Movements 1 0 Objective Remarks GENERAL: Well-developed, well-nourished, in no acute distress. Urinary Catheter: No Vascular Central Line Catheter: No A/P Assessment and Plan Medical Noncompliance: Patient is refusing all medical care this time to include life-saving medications, physical therapy, occupational therapy, refusing to ambulate. Patient is not allowing medical staff to perform their duties and protect her from harm and prevent her from having significant life-threatening medical complications Discussed with palliative care physician Dr. Riddle, he states that he is familiar with this patient. He indicates that patient may need to have further evaluation for competency since the patient is clearly indicating that she does not have a condition or conditions that have been objectively identified and patient has been counseled extensively on. He indicates that we'll need to get case management and legals involved for appropriate management of this patient. From medical standpoint there is nothing else that medical service can offer due to the patient's noncompliance, unwilling to participate in patient care. We'll continue to defer evaluation and recommendations to psychiatry and case management Discuss with neuro psychiatrist, he indicated that he evaluated patient states that patient has had a significant change in her psychiatric illness and personalities/attitude. He does not feel that the patient is capable of making her own decisions and requests psychiatry reevaluated the patient to start treating the patient for her underlying psychiatric illness Psychiatry reevaluated the patient and does agree with neuro psychologist. At this point it was indicated patient does not have capacity make appropriate judgments concerning her treatment. He feels that appointment of a healthcare surrogate would be appropriate. Psychiatry reevaluated patient and indicated that patient is unable to make her own decisions and healthcare by proxy which is her mother should be the one making medical decisions for her. 08/05/16: Meeting with Tyson guallpa, patient, myself, nursing who notified patient that her mother is now making her medical decisions. Patient was not too thrilled about that situation. 08/12/16: Patient was placed in restraints, IV was started, patient was given sufficient amount of sedation, however still was unable to perform MRI testing Bilateral Lower Extremity Weakness, Difficulty w/Ambulation: Subjective. Patient refusing workup and treatment Cervical CT, lumbar CT scans were performed which did not indicate any acute abnormality which would indicate bilateral lower extremity weakness. Patient is refusing PT/OT evaluations Patient refused lumbar puncture for further evaluation. Patient will not undergo MRI study Neurology Dr. Nelson, has evaluated the patient does not have any etiology of the patient's lower extremity weakness. He is recommending angiography of the lumbar spine because of her hypercoagulability state from the recent saddle emboli, however radiologist does not perform any angiography of the spine. Radiologist recommended MRI study of the thoracic and lumbar spine. However, patient was not able to perform MRI study yesterday and refuses to have it done. Neurology indicated that there is nothing else they can offer from a neurological standpoint to contribute to the patient's possible etiologies. He indicated that he will sign off and defer continue management to medical team MRI of thoracic and lumbar spine has been requested, unable to obtain Nursing staff to get patient out of bed at least 3 times daily to the common area Subacute Pulmonary Embolism 06/08/16 with Subtherapeutic INR: Patient refusing treatment during previous hospitalization, patient refused TPA, V/Q scan was performed which could not rule out the possibility of emboli Patient refusing Lovenox/Coumadin Patient indicates that she was told that she does not have any blood clots Patient was given copy of recent CTA for confirmation of her blood clot, however, patient states that that is not her It was discussed with the patient extensively that without anticoagulation she is at increased risk of embolic events to include worsening pulmonary emboli, stroke, . Palliative care was consulted for recommendations. Repeat CTA was ordered to evaluate for residual pulmonary emboli, patient deferring test Selective Mutism with Paranoid Schizophrenia: chronic, Patient has been evaluated by psychiatry, Psychiatry reconsulted due to the patient refusing medical care. As indicated by psychiatry the patient has full capacity to make her own medical decisions she is alert and orientated. 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 Refusal of speaking with caregivers about her condition. Likely need evaluation for competency. Patient will likely need inpatient psychiatric management Psychiatry did reevaluated patient however patient would not let psychiatrist climate change risk assessor or examine her. Psychiatrist referred back to previous notes indicate that patient has at least some degree of capacity. Psychiatrist is recommending that patient be evaluated by ethics committee It appears the patient is psychiatric illness is inhibiting her from participating in patient care and evaluation. Patient will benefit from state hospital admission for management. Will defer to psychiatry 08/19/16, did discuss case with case management. Notified him that it was unsuccessful in trying to obtain the objective data needed with MRI and CTs because patient was still uncooperative despite sedation. Discussed with him that it has been indicated by psychiatry as well as neuropsychiatry that the patient would be appropriate for [facility]. Will reconsult psychiatry for reevaluation and assistance in transferring patient to [facility] 08/19/16, psychiatry reevaluated patient still indicates patient is unable to make any of her own decisions. Agrees with mother being healthcare surrogate. Also documenting that patient anxious with marked delusions however indicating that state hospital placement is not applicable at this time. Recommending discussing with Dr. Beasley Candidal intertrigo: under bilateral breasts. Nystatin powder. DVT Prophylaxis: Patient refusing Coumadin/Lovenox Records were reviewed, absolutely no change in treatment plan since patient still deferring all care Discharge Planning Unable to determine discharge planning this time as patient was refusing all medical treatment, management, therapies. Case management consulted for administration evaluation with ethics, legal. luncheonette manager's note from 08/01/16 indicates that he has spoken with patient's mother who agreed to assist in medical decision-making and assist change healthcare to get Medicaid reinstated. Steven Mccray. YVONNE Sep 04, 2016 10:11
[2016-09-04 20:00] VITALS: BP 103/62; PULSE 72; RESP 20; TEMP 98.2; O2SAT 95
--- NOTE | 2016-09-05 09:49 | HHI.PR ---
Subjective Remarks Patient seen and examined today for follow-up on noncompliance and subjective lower external weakness. Patient is sitting in bed. Initially did not acknowledge that I was in the room. Would not speak to me. When asked if she has any problems today she lifted her gown up and showed me underneath her breasts where she has rashes. I discussed with her that she needs to be more often. Nursing staff indicated me that they get patient out of bed yesterday to the chair in out into the common room. She did not like that idea but she tolerated it without any complications. Objective Vitals Vital Signs Date Time Temp Pulse Resp B/P Pulse Ox O2 Delivery O2 Flow Rate FiO2 09/04/16 20:00 98.2 72 20 103/62 95 I/O 09/04/16 09/04/16 09/04/16 09/05/16 09/05/16 09/05/16 07:00 15:00 23:00 07:00 15:00 23:00 Intake Total 480 ml 480 ml 720 ml 720 ml Balance 480 ml 480 ml 720 ml 720 ml Intake Oral 480 ml 480 ml 720 ml 720 ml # Voids 3 2 2 3 # Bowel Movements 0 1 0 1 Objective Remarks GENERAL: Well-developed, well-nourished, in no acute distress. SKIN: Patient does have a macular rash noted under bilateral breasts Urinary Catheter: No Vascular Central Line Catheter: No A/P Assessment and Plan Medical Noncompliance: Patient is refusing all medical care this time to include life-saving medications, physical therapy, occupational therapy, refusing to ambulate. Patient is not allowing medical staff to perform their duties and protect her from harm and prevent her from having significant life-threatening medical complications Discussed with palliative care physician Dr. Riddle, he states that he is familiar with this patient. He indicates that patient may need to have further evaluation for competency since the patient is clearly indicating that she does not have a condition or conditions that have been objectively identified and patient has been counseled extensively on. He indicates that we'll need to get case management and legals involved for appropriate management of this patient. From medical standpoint there is nothing else that medical service can offer due to the patient's noncompliance, unwilling to participate in patient care. We'll continue to defer evaluation and recommendations to psychiatry and case management Discuss with neuro psychiatrist, he indicated that he evaluated patient states that patient has had a significant change in her psychiatric illness and personalities/attitude. He does not feel that the patient is capable of making her own decisions and requests psychiatry reevaluated the patient to start treating the patient for her underlying psychiatric illness Psychiatry reevaluated the patient and does agree with neuro psychologist. At this point it was indicated patient does not have capacity make appropriate judgments concerning her treatment. He feels that appointment of a healthcare surrogate would be appropriate. Psychiatry reevaluated patient and indicated that patient is unable to make her own decisions and healthcare by proxy which is her mother should be the one making medical decisions for her. 08/05/16: Meeting with Tyson guallpa, patient, myself, nursing who notified patient that her mother is now making her medical decisions. Patient was not too thrilled about that situation. 08/12/16: Patient was placed in restraints, IV was started, patient was given sufficient amount of sedation, however still was unable to perform MRI testing Bilateral Lower Extremity Weakness, Difficulty w/Ambulation: Subjective. Patient refusing workup and treatment Cervical CT, lumbar CT scans were performed which did not indicate any acute abnormality which would indicate bilateral lower extremity weakness. Patient is refusing PT/OT evaluations Patient refused lumbar puncture for further evaluation. Patient will not undergo MRI study Neurology Dr. Nelson, has evaluated the patient does not have any etiology of the patient's lower extremity weakness. He is recommending angiography of the lumbar spine because of her hypercoagulability state from the recent saddle emboli, however radiologist does not perform any angiography of the spine. Radiologist recommended MRI study of the thoracic and lumbar spine. However, patient was not able to perform MRI study yesterday and refuses to have it done. Neurology indicated that there is nothing else they can offer from a neurological standpoint to contribute to the patient's possible etiologies. He indicated that he will sign off and defer continue management to medical team MRI of thoracic and lumbar spine has been requested, unable to obtain Nursing staff to get patient out of bed at least 3 times daily to the common area Subacute Pulmonary Embolism 06/08/16 with Subtherapeutic INR: Patient refusing treatment during previous hospitalization, patient refused TPA, V/Q scan was performed which could not rule out the possibility of emboli Patient refusing Lovenox/Coumadin Patient indicates that she was told that she does not have any blood clots Patient was given copy of recent CTA for confirmation of her blood clot, however, patient states that that is not her It was discussed with the patient extensively that without anticoagulation she is at increased risk of embolic events to include worsening pulmonary emboli, stroke, . Palliative care was consulted for recommendations. Repeat CTA was ordered to evaluate for residual pulmonary emboli, patient deferring test Selective Mutism with Paranoid Schizophrenia: chronic, Patient has been evaluated by psychiatry, Psychiatry reconsulted due to the patient refusing medical care. As indicated by psychiatry the patient has full capacity to make her own medical decisions she is alert and orientated. 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 Refusal of speaking with caregivers about her condition. Likely need evaluation for competency. Patient will likely need inpatient psychiatric management Psychiatry did reevaluated patient however patient would not let psychiatrist leadership program intern or examine her. Psychiatrist referred back to previous notes indicate that patient has at least some degree of capacity. Psychiatrist is recommending that patient be evaluated by ethics committee It appears the patient is psychiatric illness is inhibiting her from participating in patient care and evaluation. Patient will benefit from state hospital admission for management. Will defer to psychiatry 08/19/16, did discuss case with case management. Notified him that it was unsuccessful in trying to obtain the objective data needed with MRI and CTs because patient was still uncooperative despite sedation. Discussed with him that it has been indicated by psychiatry as well as neuropsychiatry that the patient would be appropriate for [facility]. Will reconsult psychiatry for reevaluation and assistance in transferring patient to [facility] 08/19/16, psychiatry reevaluated patient still indicates patient is unable to make any of her own decisions. Agrees with mother being healthcare surrogate. Also documenting that patient anxious with marked delusions however indicating that state hospital placement is not applicable at this time. Recommending discussing with Dr. Beasley Candidal intertrigo: under bilateral breasts. Resume Nystatin powder. patient counseled on improved hygiene DVT Prophylaxis: Patient refusing Coumadin/Lovenox Discharge Planning Unable to determine discharge planning this time as patient was refusing all medical treatment, management, therapies. Case management consulted for administration evaluation with ethics, legal. healthcare project manager's note from 08/01/16 indicates that he has spoken with patient's mother who agreed to assist in medical decision-making and assist change healthcare to get Medicaid reinstated. Steven Mccray. YVONNE Sep 05, 2016 09:49
[2016-09-05] MEDS: NYSTATIN 100,000 U/GM PWD 15 GM BTL TOPICAL SCH ×2 (10:00→22:38)
[2016-09-05 12:13] VITALS: BP 117/81; PULSE 80; RESP 15; TEMP 97.8; O2SAT 99
[2016-09-05] MEDS ORDERED: ONDANSETRON ODT 4 MG TAB PO PRN (12:30)
[2016-09-05] MEDS ORDERED: MAGNESIUM HYDROXIDE SUSP 30 ML CUP PO PRN (12:30)
[2016-09-05] MEDS ORDERED: ACETAMINOPHEN 325 MG TAB PO PRN (12:30)
[2016-09-05 20:00] VITALS: BP 127/74; PULSE 68; RESP 20; TEMP 97.7; O2SAT 99
[2016-09-06 08:46] VITALS: BP 119/78; PULSE 58; RESP 19; TEMP 96.8; O2SAT 99
[2016-09-06] MEDS: NYSTATIN 100,000 U/GM PWD 15 GM BTL TOPICAL SCH ×2 (09:00→21:00)
--- NOTE | 2016-09-06 16:34 | HHI.PR ---
Subjective Remarks Follow-up for subjective lower extremity weakness. Patient is sleeping when I enter the room. Appears she hears me but does not respond and when I try to pull the blanket back she tugs it forward. Objective Vitals Vital Signs Date Time Temp Pulse Resp B/P Pulse Ox O2 Delivery O2 Flow Rate FiO2 09/06/16 08:46 96.8 58 19 119/78 99 09/05/16 20:00 97.7 68 20 127/74 99 I/O 09/05/16 09/05/16 09/05/16 09/06/16 09/06/16 09/06/16 07:00 15:00 23:00 07:00 15:00 23:00 Intake Total 720 ml 360 ml 240 ml 620 ml Balance 720 ml 360 ml 240 ml 620 ml Intake Oral 720 ml 360 ml 240 ml 620 ml # Voids 3 2 2 3 # Bowel Movements 1 1 0 1 Objective Remarks Exam based on visual observation only. GENERAL: Obese well-developed patient in no apparent distress. RESPIRATORY: No accessory muscle use. RR normal. NEUROLOGICAL: Sleeping. Urinary Catheter: No Vascular Central Line Catheter: No A/P Assessment and Plan Medical Noncompliance: Patient is refusing all medical care this time to include life-saving medications, physical therapy, occupational therapy, refusing to ambulate. Patient is not allowing medical staff to perform their duties and protect her from harm and prevent her from having significant life-threatening medical complications Discussed with palliative care physician Dr. Riddle, he states that he is familiar with this patient. He indicates that patient may need to have further evaluation for competency since the patient is clearly indicating that she does not have a condition or conditions that have been objectively identified and patient has been counseled extensively on. He indicates that we'll need to get case management and legals involved for appropriate management of this patient. From medical standpoint there is nothing else that medical service can offer due to the patient's noncompliance, unwilling to participate in patient care. We'll continue to defer evaluation and recommendations to psychiatry and case management Discuss with neuropsychologist, he indicated that he evaluated patient states that patient has had a significant change in her psychiatric illness and personalities/attitude. He does not feel that the patient is capable of making her own decisions and requests psychiatry reevaluated the patient to start treating the patient for her underlying psychiatric illness Psychiatry reevaluated the patient and does agree with neuro psychologist. At this point it was indicated patient does not have capacity make appropriate judgments concerning her treatment. He feels that appointment of a healthcare surrogate would be appropriate. Psychiatry reevaluated patient and indicated that patient is unable to make her own decisions and healthcare by proxy which is her mother should be the one making medical decisions for her. 08/05/16: Meeting with Tyson saloni, patient, colleague, nursing who notified patient that her mother is now making her medical decisions. 08/12/16: Patient was placed in restraints, IV was started, patient was given sufficient amount of sedation, however still was unable to perform MRI testing Refuses exams Bilateral Lower Extremity Weakness, Difficulty w/Ambulation: Subjective. Patient refusing workup and treatment Cervical CT, lumbar CT scans were performed which did not indicate any acute abnormality which would indicate bilateral lower extremity weakness. Patient is refusing PT/OT evaluations Patient refused lumbar puncture for further evaluation. Patient will not undergo MRI study Neurology Dr. Nelson, has evaluated the patient does not have any etiology of the patient's lower extremity weakness. He is recommending angiography of the lumbar spine because of her hypercoagulability state from the recent saddle emboli, however radiologist does not perform any angiography of the spine. Radiologist recommended MRI study of the thoracic and lumbar spine. However, patient was not able to perform MRI study yesterday and refuses to have it done. Neurology indicated that there is nothing else they can offer from a neurological standpoint to contribute to the patient's possible etiologies. He indicated that he will sign off and defer continue management to medical team MRI of thoracic and lumbar spine was requested but has since been cancelled since unable to complete client service and consulting manager requests repeat PT eval which has been ordered. Subacute Pulmonary Embolism 06/08/16 with Subtherapeutic INR: Patient refusing treatment during previous hospitalization, patient refused TPA, V/Q scan was performed which could not rule out the possibility of emboli Patient refusing Lovenox/Coumadin Patient indicates that she was told that she does not have any blood clots Patient was given copy of recent CTA for confirmation of her blood clot, however, patient states that that is not her It was discussed with the patient extensively that without anticoagulation she is at increased risk of embolic events to include worsening pulmonary emboli, stroke, . Palliative care was consulted for recommendations. Repeat CTA has been ordered to evaluate for residual pulmonary emboli but was cancelled as unable to be completed Selective Mutism with Paranoid Schizophrenia: chronic, Patient has been evaluated by psychiatry, Psychiatry reconsulted due to the patient refusing medical care. As indicated by psychiatry the patient has full capacity to make her own medical decisions she is alert and orientated. 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 Refusal of speaking with caregivers about her condition. Likely need evaluation for competency. Patient will likely need inpatient psychiatric management Psychiatry did reevaluated patient however patient would not let psychiatrist cloth carrier or examine her. Psychiatrist referred back to previous notes indicate that patient has at least some degree of capacity. Psychiatrist is recommending that patient be evaluated by ethics committee It appears the patient is psychiatric illness is inhibiting her from participating in patient care and evaluation. Patient will benefit from state hospital admission for management. Will defer to psychiatry 08/19/16, psychiatry reevaluated patient still indicates patient is unable to make any of her own decisions. Agrees with mother being healthcare surrogate. Also documenting that patient anxious with marked delusions however indicating that state hospital placement is not applicable at this time. Recommending discussing with Dr. Guthrie. Patient now intermittently speaks Candidal intertrigo: under bilateral breasts. Nystatin powder. DVT Prophylaxis: Patient refusing Coumadin/Lovenox Discharge Planning Mother is medical decision maker. Awaiting getting Medicaid reinstated. Difficult discharge due to patient's unwillingness and inability to complete objective testing along with psychiatric issues. Sneha Choi Sep 06, 2016 16:34
[2016-09-06 20:00] VITALS: BP 111/70; PULSE 61; RESP 20; TEMP 97.7; O2SAT 95
[2016-09-07 08:00] VITALS: BP 122/79; PULSE 80; RESP 18; TEMP 98; O2SAT 97
[2016-09-07] MEDS: NYSTATIN 100,000 U/GM PWD 15 GM BTL TOPICAL SCH ×2 (09:00→21:00)
--- NOTE | 2016-09-07 09:59 | HHI.PR ---
Subjective Remarks Follow up for subjective lower extremity weakness. Patient is eating her breakfast when I enter the room and states, "Thank you, no, I'm not a cardiac patient", when I asked if I could examine her heart and lungs. Objective Vitals Vital Signs Date Time Temp Pulse Resp B/P Pulse Ox O2 Delivery O2 Flow Rate FiO2 09/06/16 20:00 97.7 61 20 111/70 95 I/O 09/06/16 09/06/16 09/06/16 09/07/16 09/07/16 09/07/16 07:00 15:00 23:00 07:00 15:00 23:00 Intake Total 240 ml 620 ml 200 ml 240 ml Balance 240 ml 620 ml 200 ml 240 ml Intake Oral 240 ml 620 ml 200 ml 240 ml # Voids 2 3 2 # Bowel Movements 0 1 Objective Remarks Exam based on visual observation only. GENERAL: Obese well-developed patient in no apparent distress eating breakfast. RESPIRATORY: No accessory muscle use. RR normal. NEUROLOGICAL: Awake and alert. Normal speech. PSYCHIATRIC: Normal affect. Urinary Catheter: No Vascular Central Line Catheter: No A/P Assessment and Plan Medical Noncompliance: Patient is refusing all medical care this time to include life-saving medications, physical therapy, occupational therapy, refusing to ambulate. Patient is not allowing medical staff to perform their duties and protect her from harm and prevent her from having significant life-threatening medical complications Discussed with palliative care physician Dr. Riddle, he states that he is familiar with this patient. He indicates that patient may need to have further evaluation for competency since the patient is clearly indicating that she does not have a condition or conditions that have been objectively identified and patient has been counseled extensively on. He indicates that we'll need to get case management and legals involved for appropriate management of this patient. From medical standpoint there is nothing else that medical service can offer due to the patient's noncompliance, unwilling to participate in patient care. We'll continue to defer evaluation and recommendations to psychiatry and case management Discuss with neuropsychologist, he indicated that he evaluated patient states that patient has had a significant change in her psychiatric illness and personalities/attitude. He does not feel that the patient is capable of making her own decisions and requests psychiatry reevaluated the patient to start treating the patient for her underlying psychiatric illness Psychiatry reevaluated the patient and does agree with neuro psychologist. At this point it was indicated patient does not have capacity make appropriate judgments concerning her treatment. He feels that appointment of a healthcare surrogate would be appropriate. Psychiatry reevaluated patient and indicated that patient is unable to make her own decisions and healthcare by proxy which is her mother should be the one making medical decisions for her. 08/05/16: Meeting with Tyson saloni, patient, colleague, nursing who notified patient that her mother is now making her medical decisions. 08/12/16: Patient was placed in restraints, IV was started, patient was given sufficient amount of sedation, however still was unable to perform MRI testing Refuses exams Bilateral Lower Extremity Weakness, Difficulty w/Ambulation: Subjective. Patient refusing workup and treatment Cervical CT, lumbar CT scans were performed which did not indicate any acute abnormality which would indicate bilateral lower extremity weakness. Patient is refusing PT/OT evaluations Patient refused lumbar puncture for further evaluation. Patient will not undergo MRI study Neurology Dr. Nelson, has evaluated the patient does not have any etiology of the patient's lower extremity weakness. He is recommending angiography of the lumbar spine because of her hypercoagulability state from the recent saddle emboli, however radiologist does not perform any angiography of the spine. Radiologist recommended MRI study of the thoracic and lumbar spine. However, patient was not able to perform MRI study yesterday and refuses to have it done. Neurology indicated that there is nothing else they can offer from a neurological standpoint to contribute to the patient's possible etiologies. He indicated that he will sign off and defer continue management to medical team MRI of thoracic and lumbar spine was requested but has since been cancelled since unable to complete 09/06: legal support manager requests repeat PT eval which has been ordered. 09/07: Physical therapist informs me that the patient refused evaluation stating that she was on bedrest orders from a Dr. Monty Owen who is not even one of her practitioners and is untrue. Patient is on OOB with assistance. Subacute Pulmonary Embolism 06/08/16 with Subtherapeutic INR: Patient refusing treatment during previous hospitalization, patient refused TPA, V/Q scan was performed which could not rule out the possibility of emboli Patient refusing Lovenox/Coumadin Patient indicates that she was told that she does not have any blood clots Patient was given copy of recent CTA for confirmation of her blood clot, however, patient states that that is not her It was discussed with the patient extensively that without anticoagulation she is at increased risk of embolic events to include worsening pulmonary emboli, stroke, . Palliative care was consulted for recommendations. Repeat CTA has been ordered to evaluate for residual pulmonary emboli but was cancelled as unable to be completed Selective Mutism with Paranoid Schizophrenia: chronic, Patient has been evaluated by psychiatry, Psychiatry reconsulted due to the patient refusing medical care. As indicated by psychiatry the patient has full capacity to make her own medical decisions she is alert and orientated. 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 Refusal of speaking with caregivers about her condition. Likely need evaluation for competency. Patient will likely need inpatient psychiatric management Psychiatry did reevaluated patient however patient would not let psychiatrist supervisor fiberglass boat assembly or examine her. Psychiatrist referred back to previous notes indicate that patient has at least some degree of capacity. Psychiatrist is recommending that patient be evaluated by ethics committee It appears the patient is psychiatric illness is inhibiting her from participating in patient care and evaluation. Patient will benefit from state hospital admission for management. Will defer to psychiatry 08/19/16, psychiatry reevaluated patient still indicates patient is unable to make any of her own decisions. Agrees with mother being healthcare surrogate. Also documenting that patient anxious with marked delusions however indicating that state hospital placement is not applicable at this time. Recommending discussing with Dr. Guthrie. Patient now intermittently speaks Candidal intertrigo: under bilateral breasts. Nystatin powder. DVT Prophylaxis: Patient refusing Coumadin/Lovenox Discharge Planning Mother is medical decision maker. Awaiting getting Medicaid reinstated. Difficult discharge due to patient's unwillingness and inability to complete objective testing along with psychiatric issues. Sneha Choi Sep 07, 2016 09:59
[2016-09-07 20:00] VITALS: BP 111/69; PULSE 66; RESP 20; TEMP 97.1; O2SAT 96
[2016-09-08 08:00] VITALS: BP 104/66; PULSE 61; RESP 18; TEMP 98.1; O2SAT 96
[2016-09-08] MEDS: NYSTATIN 100,000 U/GM PWD 15 GM BTL TOPICAL SCH ×2 (09:00→21:00)
--- NOTE | 2016-09-08 11:49 | HHI.PR ---
Subjective Remarks Follow-up for subjective lower extremity weakness, schizophrenia. While I was in the [place] speaking with an RN the patient starts asking "ma'am?, ma'am?" from inside her room and when I enter she asked if I was talking about Lantus in regards to herself and I told her I was not. Patient states she was unsure because she just arrived this morning on the "1,2,3". I told her she has been hospitalized here yet she denied this fact. When I asked where she came from, she states she does not discuss her private matters and if I wanted to discuss her medical issues than I would need to speak with a Dr. Monty Owen. When I told her there was no Dr. Monty Owen she points to the board which had written 'Brayden' as the attending, and I informed her this was Dr. Celia Owen and I was the PA who has been taking care of her, but she denied this. When I asked if I could examine her she states "I'm not a cardiac patient". When I informed her I examine the heart and lungs of all my patients she asked me to hold on a moment and appeared to be responding to internal stimuli. She then states that she had an orally implanted cell phone and the doctor was telling her that she did not need a pulmonary exam. When I ask if she is breathing ok, she states "yes". Objective Vitals Vital Signs Date Time Temp Pulse Resp B/P Pulse Ox O2 Delivery O2 Flow Rate FiO2 09/08/16 08:00 98.1 61 18 104/66 96 09/07/16 20:00 97.1 66 20 111/69 96 I/O 09/07/16 09/07/16 09/07/16 09/08/16 09/08/16 09/08/16 06:59 14:59 22:59 06:59 14:59 22:59 Intake Total 240 ml 1180 ml 480 ml Output Total 1 ml Balance 240 ml 1179 ml 480 ml Intake Oral 240 ml 1180 ml 480 ml Stool Total 1 ml # Voids 2 6 2 # Bowel Movements 1 0 Objective Remarks Limited exam based on observation as patient will not allow physical exam. GENERAL: Obese well-developed patient in no apparent distress. RESPIRATORY: No accessory muscle use. RR normal. NEUROLOGICAL: Awake and alert. Normal speech. PSYCHIATRIC: Actively delusional, paranoid. Responding to internal stimuli. Urinary Catheter: No Vascular Central Line Catheter: No A/P Assessment and Plan Selective Mutism with Paranoid Schizophrenia: Patient has been evaluated by psychiatry, Psychiatry reconsulted due to the patient refusing medical care. As indicated by psychiatry the patient has full capacity to make her own medical decisions she is alert and orientated. 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 Refusal of speaking with caregivers about her condition. Likely need evaluation for competency. Patient will likely need inpatient psychiatric management Psychiatry did reevaluated patient however patient would not let psychiatrist agile project manager or examine her. Psychiatrist referred back to previous notes indicate that patient has at least some degree of capacity. Psychiatrist is recommending that patient be evaluated by ethics committee It appears the patient is psychiatric illness is inhibiting her from participating in patient care and evaluation. Patient will benefit from state hospital admission for management. Will defer to psychiatry 08/19/16, psychiatry reevaluated patient still indicates patient is unable to make any of her own decisions. Agrees with mother being healthcare surrogate. Also documenting that patient anxious with marked delusions however indicating that state hospital placement is not applicable at this time. Recommending discussing with Dr. Guthrie. 09/08: Patient now exhibits active psychosis which was not apparent before. I spoke with Dr. Guthrie explaining this and asked him to reconsider inpatient psychiatric admission. He has evaluated the patient and she exhibited similar behavior. He has written [facility] and agreed to accept the patient to inpatient psych for treatment. Dr. Jacinto, neuropsychologist, has also evaluated the patient and recommends placement in a long-term psychiatric facility, such as a [facility] facility. Medical Noncompliance: Patient is refusing all medical care this time to include life-saving medications, physical therapy, occupational therapy, refusing to ambulate. Patient is not allowing medical staff to perform their duties and protect her from harm and prevent her from having significant life-threatening medical complications Discussed with palliative care physician Dr. Riddle, he states that he is familiar with this patient. He indicates that patient may need to have further evaluation for competency since the patient is clearly indicating that she does not have a condition or conditions that have been objectively identified and patient has been counseled extensively on. He indicates that we'll need to get case management and legals involved for appropriate management of this patient. From medical standpoint there is nothing else that medical service can offer due to the patient's noncompliance, unwilling to participate in patient care. We'll continue to defer evaluation and recommendations to psychiatry and case management Discuss with neuropsychologist, he indicated that he evaluated patient states that patient has had a significant change in her psychiatric illness and personalities/attitude. He does not feel that the patient is capable of making her own decisions and requests psychiatry reevaluated the patient to start treating the patient for her underlying psychiatric illness Psychiatry reevaluated the patient and does agree with neuro psychologist. At this point it was indicated patient does not have capacity make appropriate judgments concerning her treatment. He feels that appointment of a healthcare surrogate would be appropriate. Psychiatry reevaluated patient and indicated that patient is unable to make her own decisions and healthcare by proxy which is her mother should be the one making medical decisions for her. 08/05/16: Meeting with Tyson guallpa, patient, colleague, nursing who notified patient that her mother is now making her medical decisions. 08/12/16: Patient was placed in restraints, IV was started, patient was given sufficient amount of sedation, however still was unable to perform MRI testing Refuses exams Bilateral Lower Extremity Weakness, Difficulty w/Ambulation: Subjective. Patient refusing workup and treatment Cervical CT, lumbar CT scans were performed which did not indicate any acute abnormality which would indicate bilateral lower extremity weakness. Patient is refusing PT/OT evaluations Patient refused lumbar puncture for further evaluation. Patient will not undergo MRI study Neurology Dr. Nelson, has evaluated the patient does not have any etiology of the patient's lower extremity weakness. He is recommending angiography of the lumbar spine because of her hypercoagulability state from the recent saddle emboli, however radiologist does not perform any angiography of the spine. Radiologist recommended MRI study of the thoracic and lumbar spine. However, patient was not able to perform MRI study yesterday and refuses to have it done. Neurology indicated that there is nothing else they can offer from a neurological standpoint to contribute to the patient's possible etiologies. He indicated that he will sign off and defer continue management to medical team MRI of thoracic and lumbar spine was requested but has since been cancelled since unable to complete 09/07: Physical therapist informs me that the patient refused evaluation stating that she was on bedrest orders from a Dr. Monty Owen who is not even one of her practitioners and is untrue. Patient is on OOB with assistance. Subacute Pulmonary Embolism 06/08/16 with Subtherapeutic INR: Patient refusing treatment during previous hospitalization, patient refused TPA, V/Q scan was performed which could not rule out the possibility of emboli Patient refusing Lovenox/Coumadin Patient indicates that she was told that she does not have any blood clots Patient was given copy of recent CTA for confirmation of her blood clot, however, patient states that that is not her It was discussed with the patient extensively that without anticoagulation she is at increased risk of embolic events to include worsening pulmonary emboli, stroke, . Palliative care was consulted for recommendations. Repeat CTA has been ordered to evaluate for residual pulmonary emboli but was cancelled as unable to be completed. Candidal intertrigo: under bilateral breasts. Nystatin powder. DVT Prophylaxis: Patient refusing Coumadin/Lovenox Discharge Planning Mother is medical decision maker. Awaiting getting Medicaid reinstated. 09/08: Patient will be discharged from medical service and admitted by psychiatrist to inpatient psych unit. Sneha Choi Sep 08, 2016 11:49
[2016-09-08] MEDS ORDERED: NYST10007 TOPICAL (15:22)
[2016-09-08] MEDS ORDERED: ZIPRASIDONE MESYLATE 20 MG VIAL IM PRN (15:30)
[2016-09-08] MEDS ORDERED: LORazepam 2 MG/ML VIAL IV PUSH PRN (15:30)
--- NOTE | 2016-09-08 15:40 | HHI.PYPN ---
Subjective Remarks Patient was visited today for psychiatric reevaluation, she is found in the room continuously laughing without any evident reason, I was in the door of her room for about 2 minutes and all the time she was lounging and talking to her self very loud. Once I step in the room patient switches her affect becoming irritable and verbally hostile. She asked me if I already spoke with Dr. Monty Owen and if I want to know anything about her I should call him. Asked about who is Dr. Owen she says "he is a doctor I found this morning when I came here and he implanted a phone inside my head and we are actively communicating". As the patient is telling me this information she is started to talk to him and posteriorly told me she has ordered to to trust me and no to talk to me and continued to be actively internally stimulated. I met with primary medical team and they informed me that since yesterday patient has changed significantly in her personality and thought processes and has been continuously talking to herself, very paranoid and referring to Dr. Monty Owen as a doctor inside her head. Review of Systems Constitutional: DENIES: Diaphoretic episodes, Fatigue, Fever, Weight gain, Weight loss, Chills, Dizziness, Change in appetite, Night Sweats Endocrine: DENIES: Abnorml menstrual pattern, Heat/cold intolerance, Polydipsia , Polyuria, Polyphagia Eyes: DENIES: Blurred vision, Diplopia, Eye inflammation, Eye pain, Vision loss , Photosensitivity, Double Vision Ears, nose, mouth, throat: DENIES: Tinnitus, Hearing loss, Vertigo, Nasal discharge, Oral lesions, Throat pain, Hoarseness, Ear Pain, Running Nose, Epistaxis, Sinus Pain, Toothache, Odynophagia Respiratory: DENIES: Apneas, Cough, Snoring, Wheezing, Hemoptysis, Sputum production, Shortness of breath Cardiovascular: DENIES: Chest pain, Palpitations, Syncope, Dyspnea on Exertion , PND, Lower Extremity Edema, Orthopnea, Claudication Genitourinary: DENIES: Abnormal vaginal bleeding, Dysmenorrhea, Dyspareunia, Sexual dysfunction, Urinary frequency, Urinary incontinence, Urgency, Hematuria , Dysuria, Nocturia, Vaginal discharge Musculoskeletal: DENIES: Joint pain, Muscle aches, Stiffness, Joint Swelling, Back pain, Neck pain Integumentary: DENIES: Abnormal pigmentation, Pruritus, Rash, Nail changes, Breast masses, Breast skin changes, Nipple discharge Hematologic/lymphatic: DENIES: Bruising, Lymphadenopathy Immunologic/allergic: DENIES: Eczema, Urticaria Neurologic: DENIES: Abnormal gait, Headache, Localized weakness, Paresthesias, Seizures, Speech Problems, Tremor, Poor Balance Psychiatric: COMPLAINS OF: Agitation, Delusions Objective Alert: Yes Reeder: Person, Place, Date Mood: Agitated, Oppositional, Other (irritable) Affect: Other (elevated, euphoric) Memory Intact: Immediate, Recent, Remote Hallucinations: Other (she denies) Delusions: Yes Delusion Type: Paranoid Suicidal: Ideation (she denies) Homicidal: Ideation (she denies) Insight/Judgment Poor Vitals/IOs Vital Signs Date Time Temp Pulse Resp B/P Pulse Ox O2 Delivery O2 Flow Rate FiO2 09/08/16 08:00 98.1 61 18 104/66 96 Intake and Output 09/07/16 09/07/16 09/07/16 07:59 15:59 23:59 Intake Total 240 ml 1180 ml Output Total 1 ml Balance 240 ml 1179 ml Assessment & Plan Problem List: (1) Encounter for psychiatric assessment ICD Code: Z76.89 (2) Paranoid schizophrenia, chronic condition with acute exacerbation Assessment & Plan: On psychiatric evaluation today patient is found actively internally stimulated, very paranoid, talking to herself, disorganized, with marked ideas of reference and thought controlling. Patient has the persisting and fixed delusion of being controlled by Dr. Owen, we inserted a phone in her head. This presentation is considered a significant change in her previous behavior and thought process. At this moment patient definitely would benefit of involuntary psychiatric admission for stabilization and safety. We will start Haldol 5 mg twice a day for psychosis, with the plan of extending her antipsychotic to injectable Depot. Also will order Haldol 5 mg IM every 8 hours when necessary aggressive behavior and agitation and Ativan 2 mg every 8 hours for the same reason. Case discussed with primary medical team. ICD Code: F20.0 Assessment & Plan Estimated LOS: days Justification for Cont. Inpt. Patient is actively psychotic and needs psychiatric admission for stabilization. Vijay Guthrie MD Sep 08, 2016 15:40
[2016-09-08] MEDS ORDERED: HALOPERIDOL LACTATE 5 MG/ML AMP IM PRN (15:45)
--- NOTE | 2016-09-08 16:28 | HHI.PR ---
Neuropsych Cognitive Cognitive: Severe: Confused/Orientation, Insight/Awareness, Judgement/Problem- Solving Psychosocial Psychosocial: Severe: Psychosocial, Family/Other Adjustment, Realistic Expectation Progress Notes/Response to Tx Contents of Sessions: Adjustment, Decline of functioning Time with Patient: 30 minutes Premorbid psychological status Premorbid Cognitive, Emotional and Behavioral Status: Unstable. The patient's past history is relatively unknown except for her long psychiatric history. Behavioral Reactions of Patient and Family/Support System: Unstable. The patient has been homeless for many years. Emotional/Behavioral Status of Patient and Family/Support System: Unstable. Pertinent issues, if appropriate to this patients clinical care, are described in detail above. Maximizing acute care outcome The essential issue presently is that the patient is entirely noncompliant with medical directives. Getting her to consent to treatment, be it either psychiatric or medical, is essential to maximize her care. However, she is unwilling to consent. Anticipated Problems Ongoing areas of concern will include behavioral impulsivity, lack of insight and judgment, which is not expected to improve with time or treatment. Treatment Plan This clinician will continue to follow with you throughout the course of this patients hospitalization, and I will be available to meet with the patients family/support system to facilitate their understanding and the ongoing care of their family member. The goals of neuropsychological intervention shall be both educational and supportive to the family/support system as is deemed clinically appropriate. Impression This 40 year old woman who is well known to me from her previous medical hospitalization for untreated PE, who was at that time was able to become a partner in her own healthcare when provided explanation, now presents with similar significant health concerns, but now exhibits increased paranoid ideation and a refusal to accept medical care for these significant health concerns. Her neurobehavioral change from her first hospitalization to her present hospitalization is striking such that she not only would not acknowledge the prior healthcare relationship she had with this examiner but she would not acknowledge that she is the same individual who was treated for these conditions. It is my clinical opinion that this patient's prior underlying major psychiatric disorder, paranoid schizophrenia, is exacerbated and now interferes from a neurocognitive perspective with her ability to make rational decisions of a legal, financial and medical nature. At this point, she is in my opinion demonstrated the IMPAIRED ability to appreciate a situation and its likely consequences and she demonstrates the IMPAIRED ability to manipulate information rationally. Diagnosis: (1) Paranoid schizophrenia, chronic condition with acute exacerbation Status: Acute (2) Elective mutism Status: Resolved Progress Note Narrative Ongoing follow-up of patient seen in her hospital room. The patient is now speaking with this examiner, telling the examiner that she is in communication with her physician, Dr. Owen, via a cellular device that is implanted in her head, and that she has been directed by this Dr. Owen through her implantable device not to discuss her medical condition with any other medical provider nor is she to engage in conversation/dialogue without permission from this entity. The patient, "Evan," is now speaking, however, she is now exhibiting floridly positive psychotic signs/symptoms consistent with a major psychiatric disorder, paranoid schizophrenia. This is a major change in her clinical presentation from before, when her schizophrenic symptoms were negative, which included her elective mutism. Consequently, in my clinical opinion, at this point in time she is not able to appreciate a situation realistically or infer the consequences from her actions, which she would base on psychotic delusions, nor is she able to make rational decisions because of her psychotic delusions. In my opinion, she would be best served at this point in time from placement in a long-term psychiatric facility, such as a [facility] facility, where she would benefit from psychiatric care. Rosalio Jacinto PhD Sep 08, 2016 4:28 pm
--- NOTE | 2016-09-08 17:27 | HHI.DS ---
Discharge Summary Admission Date July 01, 2016 at 19:04 Discharge Date: Sep 08, 2016 Admitting Diagnosis leg weakness, elective mutism, H/O paranoid shizo (1) Paranoid schizophrenia, chronic condition with acute exacerbation ICD Code: F20.0 Diagnosis: Principal (2) Elective mutism ICD Code: F94.0 Diagnosis: Principal (3) Medical non-compliance ICD Code: Z91.19 Diagnosis: Principal (4) Bilateral leg weakness ICD Code: R29.898 Diagnosis: Principal Procedures None Brief History - From Admission The patient is a 40 yo F with selective mutism, paranoid schizophrenia recently hospitalized from for a saddle embolus. History was obtained using pen and paper, patient nodding selectively to questions with yes/no and from records. The patient has no difficulty hearing and understanding but will not speak. Patient presents to ED by EMS with chief complaint of bilateral leg weakness. Patient reports the onset of symptoms 4 days ago. She states that it is getting progressively worse. She denies any associated pain. She denies any back pain. Pertinent history is that she is homeless. She was hospitalized from for a saddle embolus, went DC on coumadin, INR today is subtherapeutic. 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 However, she was found to be competent. The patient's mother was in the ED and confirms the diagnosis of paranoid schizophrenia. The mother reports that "Evan Pan" is not the patient's real name. The mother reports that the patient was in and out of hospitals for a while a number of years ago. However, she ran away from home 9 years ago and the mother has not been able to track her down until recently. The mother's first contact with her daughter in 9 years was yesterday. The mother was aware that the patient had been hospitalized recently but did not know the cause of the hospitalization. The mother has noticed that the patient' s legs are weak. She is only able to walk short distances. The patient is able to move her arms and follows some commands. She is not able to move her legs during my examination, also when pressure applied to nail bed she is also not moving her legs. She was able to flex knees during the examination by ED physician. Patient declines having a PE and states never took Coumadin. Labs normal. CT head no change. Patient UA was contaminated with feces. No signs of infection. Will admit for neuro evaluation and psychiatric evaluation. Imaging Last Impressions Lower Extremity Ultrasound 07/03/16 0000 Signed Impressions: Service Date/Time: Sunday, July 03, 2016 10:36 - CONCLUSION: Normal examination. Dax Nagel MD Lung Scan Nuclear Medicine 07/02/16 0000 Signed Impressions: Service Date/Time: Saturday, July 02, 2016 15:23 - CONCLUSION: 1. Ventilation scan only. 2. Patchy distribution of radiotracer. Without the corresponding perfusion study, findings are nonspecific but could represent central trapping/COPD. Pulmonary embolus cannot be excluded. Devante Dumont MD Chest X-Ray 07/02/16 0000 Signed Impressions: Service Date/Time: Saturday, July 02, 2016 15:25 - CONCLUSION: No acute disease. Skip Vo MD Cervical Spine CT 07/02/16 0000 Signed Impressions: Service Date/Time: Saturday, July 02, 2016 17:35 - CONCLUSION: 1. No acute bony abnormality seen. 2. Degenerative change at multiple levels as described above. Skip Vo MD Head CT 07/01/16 1602 Signed Impressions: Service Date/Time: Friday, July 01, 2016 17:57 - CONCLUSION: Negative and unchanged noncontrast head CT. Skip Tapia MD Lumbar Spine CT 07/01/16 1430 Signed Impressions: Service Date/Time: Friday, July 01, 2016 14:41 - CONCLUSION: Degenerative changes as described above worse at L4-5 and L5-S1 to the right. Delon Garcia MD FACR PE at Discharge Limited exam based on observation as patient will not allow physical exam. GENERAL: Obese well-developed patient in no apparent distress. RESPIRATORY: No accessory muscle use. RR normal. NEUROLOGICAL: Awake and alert. Normal speech. PSYCHIATRIC: Actively delusional, paranoid. Responding to internal stimuli. Hospital Course Patient initially presented to the emergency department for bilateral lower extremity weakness. The patient has history of schizophrenia and was writing with a pad and paper, electively mute. She has gone by the name Evan Masters although we have been informed by her mother that her name is Mery Krause. The patient was hospitalized/discharged in May/June for saddle PE and was on Coumadin initially. She did have a repeat ventilation scan upon this admission but the perfusion study could not be performed and was inadequate. The patient was evaluated by neurology. She underwent CAT scans of the head, cervical, lumbar spine which showed degeneration but no acute abnormalities. Neurology had wanted to perform a CTA lumbar to rule out anterior spinal artery ischemia/ infarction, given recent h/o saddle embolus, but the patient refused. Patient was evaluated by psychiatry and was initially ineligible for inpatient psychiatric admission. Throughout most of her hospitalization the patient wrote with on a pad and paper and remained selectively mute but did allow exams. She became increasingly noncompliant with her medication including warfarin and this was eventually stopped. Psychiatry followed the patient and she was deemed incapable of making her medical decisions and her mother was a medical decision maker. MRIs of the spine and CT pulmonary angiogram were attempted with use Ativan which the mother permitted, but we were still unable to perform these tests as the patient could not be still and it was unsafe to administer increasing doses of Ativan at that time. Throughout her hospitalization multiple staff members reported to me that they had witnessed the patient walking at some point. Physical therapist states he was able to work with the patient initially upon hospitalization but patient refused further reevaluations. She started to refuse exams by me. The patient was not able to be discharged as it was deemed unsafe. Today she exhibited active psychosis witnessed by myself, the psychiatrist, and the neuropsychologist, and the psychiatrist agrees to inpatient psychiatric admission for stabilization. The patient has no active medical issues currently aside from a candidal infection under the breasts which she is receiving nystatin. She is no longer on anticoagulation for saddle PE due to non-compliance, but she has had no issues with her breathing and vitals are good. She is stable for discharge. Pt Condition on Discharge: Stable Discharge Disposition: Disc to Psych Care Fac (will be admitted to inpatient psychiatry) Discharge Time: <= 30 minutes Discharge Instructions DIET: Follow Instructions for: Heart Healthy Diet, Weight Management Activities you can perform: Regular-No Restrictions Other Activity Instructions: patient is OOB with assistance New Medications: Nystatin Topical (Nystop Topical) 100,000 Unit/Gm Powd 1 APPLIC TOPICAL Q12HR apply under breasts end date 09/19/16 Rash #1 BOTTLE Discontinued Medications: Warfarin (Coumadin) 6 Mg Tab 6 MG PO DAILY@16 Pulmonary emboli Days 30 TAB Additional Information Discussed patient with Dr. Owen and psychiatrist, Dr. Guthrie. Sneha Choi Sep 08, 2016 17:27
--- NOTE | 2016-09-08 17:27 | HHI.DCPOC ---
Discharge Care Plan Diagnosis: (1) Paranoid schizophrenia, chronic condition with acute exacerbation (2) Elective mutism (3) Bilateral leg weakness (4) Medical non-compliance Goals to Promote Your Health * To prevent worsening of your condition and complications * To maintain your health at the optimal level Directions to Meet Your Goals Take your medications as prescribed Follow your dietary instruction Follow activity as directed Keep your appointments as scheduled Take your immunizations and boosters as scheduled If your symptoms worsen call your PCP, if no PCP go to Urgent Care Center or Emergency Room Smoking is Dangerous to Your Health. Avoid second hand smoke Call the 24-hour hour crisis hotline for domestic abuse at Sneha Choi Sep 08, 2016 17:27
[2016-09-08 20:00] VITALS: BP 102/64; PULSE 60; RESP 20; TEMP 97.1; O2SAT 98
[2016-09-08] MEDS ORDERED: HALOPERIDOL 5 MG TAB PO SCH (21:00)
[2016-09-08] MEDS ORDERED: ZIPRASIDONE HCL 20 MG CAP PO SCH (21:00)
== END 2016-09-08 23:22 | DRG 947 ==
LOC: EDBD → PHED 13:31 → PHEDA 19:04 → OBSVTOIN 19:04 → NEPGCP 22:56 → N05A 07-03 16:58 → PH5B 07-06 20:22 → PH5A 07-06 21:55
PROVIDERS: ADMIT Hospitalist; ATTEND Hospitalist
DX: R53.1 Weakness (principal); I26.92 Saddle embolus of pulmonary artery without acute cor pulmonale; F20.0 Paranoid schizophrenia; B37.2 Candidiasis of skin and nail; R26.2 Difficulty in walking, not elsewhere classified; F94.0 Selective mutism; M51.26 Other intervertebral disc displacement, lumbar region; Z51.5 Encounter for palliative care; Z59.0 Homelessness; Z79.01 Long term (current) use of anticoagulants; Z91.19 Patient's noncompliance with other medical treatment and regimen; Z91.14 Patient's other noncompliance with medication regimen
CPT/HCPCS: 70450; 71010; 72125; 72131; 78579; 80053; 82550; 83735; 84702; 85025; 85379; 85610; 85652; 85730; 93005; 93970; A9567; G8996-GN; G8997-GN; G8998-GN

== ENCOUNTER 2016-09-08 23:00 | Inpatient (IN) | payer OTHER ==
[~2016-09-08 23:00] MED LIST changes: +NYST10007 TOPICAL
[2016-09-08] MEDS ORDERED: LORazepam 2 MG/ML VIAL IM PRN (23:45)
[2016-09-08] MEDS ORDERED: HALOPERIDOL LACTATE 5 MG/ML AMP IM PRN (23:45)
[2016-09-09 00:22] VITALS: BP 123/78; PULSE 70; RESP 18; TEMP 98.2
[2016-09-09 05:35] VITALS: BP 119/74; PULSE 60; RESP 17; TEMP 97.8; O2SAT 98
[2016-09-09] MEDS ORDERED: HALOPERIDOL 5 MG TAB PO SCH (09:00)
--- NOTE | 2016-09-09 09:24 | PD.CONS ---
HPI Service [facility] Consult Requested By Reason for Consult medical management Primary Care Physician Unknown Diagnoses: History of Present Illness patient is a 50 y/o female , known to me from the previous admission, with history of schizophrenia, who's been admitted to the psych unit because of psychosis. she wasn't cooperative during my exam. but she says that she's had bilateral lower extremity weakness. she denies any chest pain, sob, abdominal pain, nausea or vomiting. of note she has a history of PE and was evaluated by neurology during the previous admissions. she refused the work-up and treatment and the neurology signed off at the time. Review of Systems Constitutional: DENIES: Fever, Weight loss, Chills, Night Sweats Eyes: DENIES: Blurred vision, Diplopia, Vision loss, Double Vision Ears, nose, mouth, throat: DENIES: Tinnitus, Vertigo, Throat pain, Epistaxis Respiratory: DENIES: Apneas, Cough, Snoring, Wheezing, Hemoptysis, Sputum production, Shortness of breath Cardiovascular: DENIES: Chest pain, Palpitations, Syncope, Dyspnea on Exertion , PND, Lower Extremity Edema, Orthopnea, Claudication Gastrointestinal: DENIES: Abdominal pain, Black stools, Bloody stools, Constipation, Diarrhea, Nausea, Vomiting, Difficulty Swallowing, Anorexia Genitourinary: DENIES: Urinary frequency, Urgency, Hematuria, Dysuria Musculoskeletal: DENIES: Joint pain, Muscle aches, Stiffness, Joint Swelling Integumentary: DENIES: Rash Neurologic: COMPLAINS OF: Localized weakness (lower extremities), DENIES: Abnormal gait, Headache, Paresthesias, Seizures, Speech Problems, Tremor, Poor Balance Psychiatric: DENIES: Anxiety, Confusion, Mood changes, Depression, Hallucinations, Agitation, Suicidal Ideation, Homicidal Ideation, Delusions Past Family Social History Allergies: Coded Allergies: No Known Allergies (Unverified , 07/01/16) Past Medical History pe schizophrenia Past Surgical History none Reported Medications Current Medications Haloperidol (Haldol) 5 mg BID PO ; Start 09/09/16 at 09:00; Status Hold Haloperidol Lactate (Haldol Inj) 5 mg Q8H PRN IM SEE LABEL COMMENTS; Start at 23:45; Status Hold Lorazepam (Ativan Inj) 2 mg Q8H PRN IM SEE LABEL COMMENTS; Start 09/08/16 at 23 :45; Status Hold Lorazepam (Ativan) 2 mg Q8H PRN PO SEE LABEL COMMENTS; Start 09/08/16 at 23:45 ; Status Hold Active Ordered Medications Current Medications Haloperidol (Haldol) 5 mg BID PO ; Start 09/09/16 at 09:00; Status Hold Haloperidol Lactate (Haldol Inj) 5 mg Q8H PRN IM SEE LABEL COMMENTS; Start at 23:45; Status Hold Lorazepam (Ativan Inj) 2 mg Q8H PRN IM SEE LABEL COMMENTS; Start 09/08/16 at 23 :45; Status Hold Lorazepam (Ativan) 2 mg Q8H PRN PO SEE LABEL COMMENTS; Start 09/08/16 at 23:45 ; Status Hold Social History doesn't want to discuss. Physical Exam Vital Signs Vital Signs Date Time Temp Pulse Resp B/P Pulse Ox O2 Delivery O2 Flow Rate FiO2 09/09/16 05:35 97.8 60 17 119/74 98 09/09/16 00:22 98.2 70 18 123/78 Physical Exam GENERAL: This is a well-nourished, well-developed patient, in no apparent distress. refused the exam. Assessment and Plan Assessment and Plan A/P - schizophrenia- management per psych -history of PE; refused the treatment -bilateral lower extremity weakness- was evaluated by neurology during the last admission- patient refused further work-up and treatment . [facility] will sign off at this time and cohen see her as needed. thank you for the consult. Discussed Condition With the patient and RN. Teodoro Pritchett MD Sep 09, 2016 09:24
[2016-09-09 17:10] VITALS: BP 146/92; PULSE 78; RESP 18; TEMP 98.2; O2SAT 99
[2016-09-09] MEDS ORDERED: ALUMINUM/MAGNESIUM/SIMETH 30 ML CUP PO PRN (20:00)
[2016-09-09] MEDS ORDERED: MAGNESIUM HYDROXIDE SUSP 30 ML CUP PO PRN (20:00)
[2016-09-09] MEDS ORDERED: diphenhydrAMINE HCL 50 MG CAP PO PRN (20:00)
[2016-09-09] MEDS ORDERED: LORazepam 0.5 MG TAB PO PRN (20:00)
[2016-09-09] MEDS ORDERED: LORazepam 2 MG/ML VIAL IM PRN ×2 (20:00)
--- NOTE | 2016-09-09 20:18 | HHI.HP ---
Provisional Diagnosis Admission Date Sep 08, 2016 at 23:00 [place] I. Schizophrenia Winn II. Deferred [place] III. History of pulmonary embolism (not currently on anticoagulation therapy) Winn IV. Chronic mental illness, homelessness, history of medication noncompliance Winn V. 30 Certification of Person's Competence To Provide Express and Informed Consent I have personally examined Mery Krause , a person being served at [facility] on, Sep 09, 2016 20:03. Express and informed consent means consent voluntarily given in writing, by a competent person, after sufficient explanation and disclosure of the subject matter involved to enable the person to make a knowing and willful decision without any element of force, fraud, deceit, duress, or other form of constraint or coercion. This person is 18 years of age or older, is not now known to be incompetent to consent to treatment with a guardian advocate, and does not have a health care surrogate or proxy currently making medical treatment decisions. I have found this person to be one of the following: [] Competent to provide express and informed consent, as defined above, for voluntary admission to this facility and is competent to provide express and informed consent for treatment. He/she has the consistent capacity to make well reasoned, willful, and knowing decisions concerning his or her medical or mental health treatment. The person fully and consistently understands the purpose of the admission for examination/placement and is fully capable of personally exercising all rights assured [place] [x] Incompetent to provide express and informed consent to voluntary admission, and this is incompetent to provide express and informed consent to treatment. The person must be transferred to involuntary status and a petition for a guardian advocate filed with the Circuit Court. [] Refusing to provide express and informed consent to voluntary admission but is competent to provide express and informed consent for treatment. The person must be discharged or transferred to involuntary status. Form shall be completed within 24 hours of a person's arrival at the receiving facility and filed in the clinical record of each person: 1. Admitted on a voluntary basis 2. Permitted to provide express and informed consent to his/her own treatment 3. Allowed to transfer from involuntary to voluntary status 4. Prior to permitting a person to consent to his or her own treatment after having been previously found incompetent to consent to treatment. History of Present Illness Capacity: Lacks Capacity HPI Patient is a 50-year-old woman, homeless, with a past psychiatric history of schizophrenia, multiple psychiatric hospitalizations, no prior suicide attempts or self-injurious behavior, history of medication noncompliance , past medical history of pulmonary embolism treated on 06/08 but had refused to continue anticoagulant therapy, was previously admitted under the name of Evan Masters, the patients real name is Celio Krause. Patient was discharged from the medical unit on 09/08/2016 and transferred to the inpatient psychiatry unit for further psychiatric evaluation and stabilization as patient was noted to be acutely psychotic. As per chart, patient was hospitalized from for several embolism, and during that admission was noted to have been selectively mute. Patient had presented during last admission for bilateral leg weakness brought in by EMS activated by patient. Patient had reported that her day was Evan Masters at that time. Patient had previous imaging studies who had cervical lumbar spine which as per chart showed degeneration but no acute abnormalities. Patient was uncooperative during that hospitalization as per chart. Patient was evaluated by consult psychiatrist and it was determined the patient required inpatient psychiatric admission for stabilization. Patient was discharged from the medical floor and admitted to the inpatient psychiatric unit. As per Dr. Martinez consult note: he is found in the room continuously laughing without any evident reason, I was in the door of her room for about 2 minutes and all the time she was lounging and talking to her self very loud. Once I step in the room patient switches her affect becoming irritable and verbally hostile. She asked me if I already spoke with Dr. Monty Owen and if I want to know anything about her I should call him. Asked about who is Dr. Owen she says "he is a doctor I found this morning when I came here and he implanted a phone inside my head and we are actively communicating". As the patient is telling me this information she is started to talk to him and posteriorly told me she has ordered to to trust me and no to talk to me and continued to be actively internally stimulated. I met with primary medical team and they informed me that since yesterday patient has changed significantly in her personality and thought processes and has been continuously talking to herself, very paranoid and referring to Dr. Monty Owen as a doctor inside her head. Patient was seen today video games storywriter and social work/counselor and was found sitting on hospital bed with poor eye contact, refusing to cooperate or engage in interview. Patient was eating breakfast had minimal in reaction with team. Patient was addressed as Ms. Krause but there was quickly corrected by patient stating that her name was Ms. Weston. When asked why she was in the hospital he stated I cannot release of information to you. Patient noted to become more irritable as video games storywriter continued to ask questions. Patient stated that she has a cold and her arm that I would know more information is her code. She also was noted to be internally preoccupied target to self during interview and when asked where she was type II she stated that she had an internal cellular device pointing toward her right ear. Patient states that she would not talk to anyone and would only would talk to Dr. Gandhi who she states was her neurologist. The patient continued to become more irritable during interview and refuses to continue engaging in interview. Past psychiatric history: Patient with a previous psychiatric diagnoses of schizophrenia, multiple prior psychiatric hospitalizations, unknown prior suicide attempts, unknown history of self-injurious behavior Family psychiatric history: Unable to assess Substance use history: Unable to assess Past medical history: As per chart, Allergies: Amoxicillin Legal history: Denies Social history: Unable to assess. As per collateral patient has been homeless for the past couple of years. Collateral contact:. Mikala Hernandez (mother) - was contacted via telephone ([phone]). Mother and stepfather were on the phone with rider states that the patient was first hospitalized at the age of 34 and 2000 in [facility]. She states that patient previously had worked as an international model had completed a college degree until her first hospitalization. They state that she has had since subsequent psychiatric hospitalizations with a history of medication noncompliance. He mentioned that in January 2007 patient left section 8 housing which mother had helped arrange for the patient and had elbows for the past 9 years. She states that she had found out that the patient was in [place] and mother had driven down in May 2016 to find her. She states that she did find the patient was here for 6 days attempting to make with the patient but states that the patient appeared to not recognize her as her mother. She mentions having found out that the patient had called EMS complaining that the patient had difficulty walking and while EMS was about to transport the patient she states that she had mentioned that she was the patients mother but the patient at that time and denied her pain as her mother. She reports that the patient had been given a diagnosis of schizophrenia have been on multiple medication trials in the past including haloperidol quetiapine aripiprazole and risperidone. She mentions that patient multiple times of discontinuing her medication which led to her multiple hospital visits. She states that recently she had been hospitalized for 6 weeks at [facility] mental transferred here for psychiatric care. Mother mentions that the patient has had 4 previous psychiatric hospitalizations no known suicide attempt or self-injurious behavior and no history of violence. She states that the patient has had a history of marijuana alcohol and tobacco use. She also mentions that patient was arrested once for getting a false name to the police. Mother states that she was the patients healthcare surrogate during her last admission and agrees to continue to do so during this admission. Hospitalist consult: Patient was seen today by hospitalist and was uncooperative during evaluation. Patient has history of pulmonary embolism but have refused treatment. Patient was evaluated by neurology. Last admission but patient had refused further workup and treatment. Review of Systems ROS Limitations: Uncooperative, Psychotic Other Unable to assess review of systems this patient is currently psychotic and refusing to engage in interview Past Psych History Psychological trauma history Unable to assess Violence risk - others (6 mos) Patient has no history of violence but has been noted to be verbally aggressive during last admission. Violence risk - self (6 mos) Low acute risk Substance Abuse History Drugs/Alcohol past 12 months As per collateral information patient with history of marijuana, alcohol, tobacco use Past Family Social History Coded Allergies: No Known Allergies (Unverified , 07/01/16) Active Scripts Nystatin Topical (Nystop Topical)100,000 Unit/Gm Powd1 Applic TOPICAL Q12HR #1 BOTTLE apply under breasts end date 09/19/16 Prov:Sneha Choi 09/08/16 Discontinued Scripts Warfarin (Coumadin)6 Mg Tab6 Mg PO DAILY@16 30 Days Prov:Steven Mccray 06/24/16 Current Medications Medications (Trade) Dose Ordered Sig/Nimo Route Start Time Stop Time Status Last Admin (Ativan Inj) 2 mg Q8H PRN IM 09/08/16 23:45 (Ativan) 2 mg Q8H PRN PO 09/08/16 23:45 (Prolixin) 5 mg Q12HR PO 09/09/16 21:00 (Prolixin Inj) 5 mg Q12HR PRN IM 09/09/16 21:00 Patient's Strengths (min. 2) Past social support, verbal at times Physical Exam Unable to examine patient and patient refusing examination. Vital Signs Vital Signs Date Time Temp Pulse Resp B/P Pulse Ox O2 Delivery O2 Flow Rate FiO2 09/09/16 17:10 98.2 78 18 146/92 99 Mental Status Examination Appearance Patient appears his stated age, obese, poor hygiene, very disheveled, found casual clothing 69 on hospital bed eating breakfast, poor eye contact, limited verbal interactions patient noted to be internally preoccupied seen to be responding to internal stimuli during interview. Patient not oriented to person , time, or place Speech: Hesitant Memory: Impaired (describe) (impaired due to current psychosis) Thought Process: Other (disorganized) Thought Content: Bizarre thinking (patient with bizarre delusions having devices implanted in her head as well as having a code on her arm) Language Impoverished Fund of Knowledge Poor Hallucination Type: Auditory (patient noted to be internally preoccupied) Attention and Concentration: Abnormal (poor) Suicidal Ideation: No Previous Suicide Attempts: No Homicidal Ideation: No Previous Homicide Attempts: No Insight: Poor Judgment: Poor Affect: Other (constricted) Mood: Irritable Assessment & Plan Problem List: (1) Paranoid schizophrenia, chronic condition with acute exacerbation ICD Code: F20.0 Assessment & Plan Estimated LOS: 7-10 days. Patient is a 50-year-old woman, homeless, who carries a diagnosis of schizophrenia, multiple psychiatric hospitalizations , no prior suicide attempts or self-injurious behavior, history of medication noncompliance, past medical history of pulmonary embolism treated on 06/08 but had refused to continue anticoagulant therapy, was previously admitted under the name of Evan Masters, the patients real name is Celio Malika Jimi. Patient found to be acutely psychotic and was transferred to the inpatient psychiatry unit for stabilization patient currently acutely psychotic noted to be disorganized, responding to internal stimuli,, endorsing bizarre delusions of having devices implanted in her head, and is unable to self at this time and requires involuntary psychiatric admission for stabilization. Patient will remain on a Yang act, mother agrees to continue as health care surrogate for the patient. Starts fluphenazine 5 mg by mouth twice a day for psychosis. Patient on close observation. Patient encouraged to participate in individual group therapy. Discharge Planning In Progress Request HC Surrog/Guard Advoc?: Yes (patient's mother) Rah Mistry MD Sep 09, 2016 20:18
[2016-09-09] MEDS ORDERED: fluPHENAZine HCL 25 MG/10 ML VIAL IM SCH (21:00)
[2016-09-09] MEDS ORDERED: fluPHENAZine HCL 25 MG/10 ML VIAL IM PRN (21:00)
[2016-09-10 05:58] VITALS: BP 92/53; PULSE 75; RESP 17; TEMP 97.9; O2SAT 100
--- NOTE | 2016-09-10 18:09 | PD.PSY.CON ---
Provisional Diagnosis Admission Date Sep 08, 2016 at 23:00 [place] I. Schizophrenia [place] II. Deferred [place] III. History of pulmonary embolism (not currently on anticoagulation therapy) [place] IV. Chronic mental illness, homelessness, history of medication noncompliance [place] V. 30 History of Present Illness Service Psychiatry Consult Requested By Psychiatry Reason for Consult 2nd Opinion Primary Care Physician Unknown HPI Pt was seen and discussed with staff. Chart reviewed. Pt is a 50 YOWF with a hx of schizophrenia who was admitted to [facility] on a BA secondary to psychosis. Staff report that pt reported that she is 14 years old and her names is "Ms. Weston." She told RN that she was related to the railroad police officer of [facility] who [facility] When approached for interview, pt informs this MD that she has a cell -phone implanted in her ear that allows her to talk to "Dr. Quijano" who is standing outside of psychiatric unit. She states that she does not require " your services" and that all questions need to be directed through Dr. Quijano. Staff report that pt has been defecating and urinating repeatedly in her bed. She has been uncooperative staff but was compliant with medications. Past Family Social History Coded Allergies: No Known Allergies (Unverified , 07/01/16) Past Medical History hx of pulmonary embolism multiple psychiatric admissions Active Scripts Nystatin Topical (Nystop Topical)100,000 Unit/Gm Powd1 Applic TOPICAL Q12HR #1 BOTTLE apply under breasts end date 09/19/16 Prov:Sneha Choi 09/08/16 Discontinued Scripts Warfarin (Coumadin)6 Mg Tab6 Mg PO DAILY@16 30 Days Prov:Steven Mccray 06/24/16 Current Medications Medications (Trade) Dose Ordered Sig/Nimo Route Start Time Stop Time Status Last Admin (Ativan Inj) 2 mg Q8H PRN IM 09/08/16 23:45 (Ativan) 2 mg Q8H PRN PO 09/08/16 23:45 (Prolixin) 5 mg Q12HR PO 09/09/16 21:00 09/10/16 09:08 (Prolixin Inj) 5 mg Q12HR PRN IM 09/09/16 21:00 (Ativan) 1 mg Q6H PRN PO 09/09/16 20:00 (Ativan Inj) 1 mg Q6H PRN IM 09/09/16 20:00 (Benadryl) 50 mg HS PRN PO 09/09/16 20:00 (Tylenol) 650 mg Q4H PRN PO 09/09/16 20:00 (Milk Of Magnesia Liq) 30 ml DAILY PRN PO 09/09/16 20:00 (Mag-Al Plus Susp Liq) 30 ml Q6H PRN PO 09/09/16 20:00 Family History pt unwilling to provide Social History homeless, college graduate involved parents Patient's Strengths (min. 2) Past social support, verbal at times Physical Exam see EMR no acute distress Vital Signs Vital Signs Date Time Temp Pulse Resp B/P Pulse Ox O2 Delivery O2 Flow Rate FiO2 09/10/16 05:58 97.9 75 17 92/53 100 Mental Status Examination Speech: Unremarkable Orientation: Person (Believes she is Ms Weston but answers to legal name) Memory: Impaired (describe) (impaired due to current psychosis) Thought Process: Other (disorganized) Thought Content: Bizarre thinking Hallucination Type: Auditory (patient noted to be internally preoccupied) Attention and Concentration: Abnormal (poor) Suicidal Ideation: No Previous Suicide Attempts: No Homicidal Ideation: No Previous Homicide Attempts: No Insight: Poor Judgment: Poor Affect: Irritable Mood: Irritable Motor Activity: Normal gait Assessment & Plan Problem List: (1) Paranoid schizophrenia, chronic condition with acute exacerbation ICD Code: F20.0 Assessment & Plan I agree that pt meets criteria for involuntary hospitalization. Will complete 2nd opinion paper work. Estimated LOS: days Request HC Surrog/Guard Advoc?: Yes (patient's mother) Alicia Smith MD Sep 10, 2016 18:09
[2016-09-10 18:24] VITALS: BP 121/80; PULSE 78; RESP 18; TEMP 97.9; O2SAT 100
[2016-09-11 04:58] VITALS: BP 98/67; PULSE 16; RESP 16; TEMP 98; O2SAT 97
--- NOTE | 2016-09-11 14:45 | HHI.PYPN ---
Subjective Remarks Pt seen and discussed with staff. Moved to 2500 unit to refusing to walk and do any self care. She refused medications this morning due to paranoia. She states that "Dr. Travon Curry" spoke to her via her auricle cellular implant and told her that the medication had been changed. She insists that staff contact Dr. Travon Curry via her cellular implant for her health records. Hygiene has been extremely poor. Objective Alert: Yes [place]: Person, Place Mood: Other (irritable) Affect: Flat Memory Intact: Comment (fair) Hallucinations: Auditory Delusions: Yes Delusion Type: Paranoid Suicidal: Ideation (poor) Homicidal: Ideation (poor) Insight/Judgment Continue current tx plan Vitals/IOs Vital Signs Date Time Temp Pulse Resp B/P Pulse Ox O2 Delivery O2 Flow Rate FiO2 09/11/16 04:58 98.0 16 16 98/67 97 Assessment & Plan Problem List: (1) Paranoid schizophrenia, chronic condition with acute exacerbation ICD Code: F20.0 Assessment & Plan Continue current tx plan. Estimated LOS: days Justification for Cont. Inpt. impairments in self care and reality testing Request HC Surrog/Guard Advoc?: Yes (patient's mother) Alicia Smith MD Sep 11, 2016 14:45
[2016-09-11 18:36] VITALS: BP 111/63; PULSE 16; RESP 18; TEMP 98.2
[2016-09-12 07:09] VITALS: BP 139/64; PULSE 58; RESP 18; TEMP 98.7; O2SAT 94
[2016-09-12] MEDS ORDERED: fluPHENAZine HCL 25 MG/10 ML VIAL IM PRN ×2 (14:15→14:30)
[2016-09-12] MEDS ORDERED: PILL SPLITTER OTHER PRN (14:45)
--- NOTE | 2016-09-12 18:27 | HHI.PYPN ---
Subjective Remarks Patient is a 50-year-old woman, homeless, with a past psychiatric history of schizophrenia, multiple psychiatric hospitalizations, no prior suicide attempts or self-injurious behavior, history of medication noncompliance , past medical history of pulmonary embolism treated on 06/08 but had refused to continue anticoagulant therapy, was previously admitted under the name of Evan Masters, the patients real name is Celio Krause. Patient was discharged from the medical unit on 09/08/2016 and transferred to the inpatient psychiatry unit for further psychiatric evaluation and stabilization as patient was noted to be acutely psychotic. Patient seen over the weekend and as per chart was noted to be defecating and urinating in bed and partially compliant with medications. Patient continued to to endorse that Mr. Travon Curry spoke to her via her ear environmental health technician implant; continues with poor hygiene. Patient this morning as per chart took by mouth meds and as per nursing report patient shower yesterday and took by mouth medications. Patient was seen today for follow-up: Chart reviewed. Patient found lying on hospital bed and refused to engage in interview with headline writer. Patient was later seen that morning and was found sitting on bed reading a magazine and was slightly more engaging in interview at this time. Patient noted to continue to be internally preoccupied responding to internal stimuli and states that Dr. Gandhi was the person authorized to make any clinical decisions on her behalf. Patient states that she is not a psych patient and that she does not like taking medications. Patient abruptly stated to headline writer thank you that is all and refused to continue interview at this time. Review of Systems ROS Limitations: Uncooperative (superficially cooperative), Psychotic Except as stated in HPI: all other systems reviewed are Neg Objective Alert: Yes [place]: Place Mood: Other (irritable) Affect: Flat Memory Intact: Comment (impaired) Hallucinations: Auditory Delusions: Yes Delusion Type: Paranoid Suicidal: Ideation (denies) Homicidal: Ideation (denies) Insight/Judgment Poor insight, poor impulse control, poor judgment Remarks Patient appears stated age, obese, poor hygiene, poor grooming, superficially cooperative interview, poor eye contact. Language fluent but nonspontaneous Vitals/IOs Vital Signs Date Time Temp Pulse Resp B/P Pulse Ox O2 Delivery O2 Flow Rate FiO2 09/12/16 07:09 98.7 58 18 139/64 94 Intake and Output 09/11/16 09/11/16 09/12/16 08:00 16:00 00:00 Intake Total 720 ml Balance 720 ml Assessment & Plan Problem List: (1) Paranoid schizophrenia, chronic condition with acute exacerbation ICD Code: F20.0 Assessment & Plan Estimated LOS: days Justification for Cont. Inpt. Patient currently acutely psychotic and requires inpatient level care for stabilization. Request HC Surrog/Guard Advoc?: Yes (patient's mother) Rah Mistry MD Sep 12, 2016 18:27
[2016-09-12 18:32] VITALS: BP 104/59; PULSE 68; RESP 16; TEMP 99.3; O2SAT 96
[2016-09-13 05:38] VITALS: BP 102/55; PULSE 65; RESP 18; TEMP 98; O2SAT 95
--- NOTE | 2016-09-13 18:37 | HHI.PYPN ---
Subjective Remarks Patient is a 50-year-old woman, homeless, with a past psychiatric history of schizophrenia, multiple psychiatric hospitalizations, no prior suicide attempts or self-injurious behavior, history of medication noncompliance , past medical history of pulmonary embolism treated on 06/08 but had refused to continue anticoagulant therapy, was previously admitted under the name of Evan Masters, the patients real name is Celio Krause. Patient was discharged from the medical unit on 09/08/2016 and transferred to the inpatient psychiatry unit for further psychiatric evaluation and stabilization as patient was noted to be acutely psychotic. Patient seen for follow-up, chart reviewed. As per nursing report patient with assisted to the shower and onto chair which she required maximum assistance when taken to the day room had urinated in the chair. Patient had stated that she was 14 years old and from [place]. Patient has been taking medications and continues to endorse inability her difficulty standing or walking. Nursing has noted able to be able to bridge up with her legs to put on previous. Patient seen lying on hospital bed initially refusing to speak with keno writer but was able to engage somewhat in interview. Patient states that she requires help to move out of the bed and agrees to let staff know when she will require assistance for bowel movements or urination. Patient agrees to go outside along with other patients and states that she will need assistance onto a chair to do that. When asked whether she would agree to see medical staff to assess her leg weakness patient states that only Dr. Gandhi was court mandated to treat her for her leg weakness. Patient perseverative on this Dr. Gandhi and is not amenable to be evaluated by other medical physicians. Patient denied having a regular cell phone implant in her urine denies any auditory hallucinations but noted to be responding to internal stimuli during interview. Patient refused to continue interview and stated that is all thank you and return to closing her eyes. Review of Systems ROS Limitations: Psychotic Except as stated in HPI: all other systems reviewed are Neg Objective Alert: Yes [place]: Place Mood: Other ("fine") Affect: Flat Memory Intact: Comment (impaired) Hallucinations: Auditory Delusions: Yes Delusion Type: Paranoid Suicidal: Ideation (denies) Homicidal: Ideation (denies) Insight/Judgment Poor insight, fair impulse control, poor judgment Vitals/IOs Vital Signs Date Time Temp Pulse Resp B/P Pulse Ox O2 Delivery O2 Flow Rate FiO2 09/13/16 05:38 98.0 65 18 102/55 95 Intake and Output 09/12/16 09/12/16 09/12/16 07:59 15:59 23:59 Intake Total 480 ml 1320 ml Balance 480 ml 1320 ml Assessment & Plan Problem List: (1) Paranoid schizophrenia, chronic condition with acute exacerbation ICD Code: F20.0 Assessment & Plan Patient continues to be acutely psychotic, noted to be slightly more interactive with limited engagement continues to be disorganized, was trying to internal stimuli, and internally preoccupied. Patient will continue to require inpatient psychiatric level of care for stabilization. Patient to continue current treatment with upward titration. Patients mother had called and reported having sent previous medical records over the hospital which will be reviewed once it is received. Justification for Cont. Inpt. Patient continues to be acutely psychotic and requires inpatient level of care for stabilization Discharge Planning In Process Request HC Surrog/Guard Advoc?: Yes (patient's mother) Rah Mistry MD Sep 13, 2016 18:37
[2016-09-13 19:48] VITALS: BP 119/70; PULSE 70; RESP 18; TEMP 98.2; O2SAT 96
[2016-09-14 04:59] VITALS: BP 109/66; PULSE 70; RESP 18; TEMP 98.7; O2SAT 95
[2016-09-14 11:11] LABS: ANION GAP 9 MEQ/L (5-15); BICARBONATE 26.4 MEQ/L (21.0-32.0); BLOOD UREA NITROGEN 21 MG/DL (7-18); CHLORIDE 105 MEQ/L (98-107); GLOMERULAR FILTRATION RATE 81 ML/MIN (>89); SODIUM (NA) 140 MEQ/L (136-145)
[2016-09-14 11:21] LABS: HDL CHOLESTEROL 44.9 MG/DL (40.0-60.0); LDL CHOLESTEROL 150 MG/DL (0-99)
[2016-09-14 11:48] LABS: HEMOGLOBIN A1a 1.2 %; HEMOGLOBIN A1b 1.7 %; HEMOGLOBIN Ao 84.8 %; HEMOGLOBIN P3 5.7 %
[2016-09-14 18:00] VITALS: BP 102/63; PULSE 66; RESP 18; TEMP 98.4; O2SAT 96
--- NOTE | 2016-09-14 18:15 | HHI.PYPN ---
Subjective Remarks Patient is a 50-year-old woman, homeless, with a past psychiatric history of schizophrenia, multiple psychiatric hospitalizations, no prior suicide attempts or self-injurious behavior, history of medication noncompliance , past medical history of pulmonary embolism treated on 06/08 but had refused to continue anticoagulant therapy, was previously admitted under the name of Evan Masters, the patients real name is Celio Krause. Patient was discharged from the medical unit on 09/08/2016 and transferred to the inpatient psychiatry unit for further psychiatric evaluation and stabilization as patient was noted to be acutely psychotic. Patient seen for follow-up, chart reviewed. As per nursing level drawn this morning. Patient found lying on hospital bed initially refusing to engage in interview but was superficially cooperative. Patient continues to refer herself as Ms. Weston. She reports having slept well with no problem eating and drinking. Patient states that she had come into the hospital yesterday and continues to have leg weakness and reports unable to stand or walk. Patient was was encouraged to allow evaluation of her weakness and initially refused states that only her neurologist Dr. Gandhi is able to come see her but after constant encouragement patient agreed. Patient states that she no longer wishes for Dr. Gandhi to be her legal advocate. Although she continues to state that Dr. Gandhi is on the face sheet of her chart under Miss Weston. Patient noted throughout interview to be responding to internal stimuli and when asked if she was receiving any phone calls from the year cellular implant she states that she does not have any implant and denies having a code in her arm. Patient denies any side effects from medication but also states that she is not psych patient. Patient encouraged to allow staff to help her out of bed which she reluctantly agreed. Physical therapy consult appreciated Labs reviewed. Review of Systems ROS Limitations: Psychotic Except as stated in HPI: all other systems reviewed are Neg Objective Alert: Yes [place]: Place Mood: Other (okay) Affect: Flat, Other (responding to internal stimuli) Memory Intact: Comment (impaired) Hallucinations: Auditory Delusions: Yes Delusion Type: Paranoid Suicidal: Ideation (denies) Homicidal: Ideation (denies) Insight/Judgment Poor insight, poor judgment, fair impulse control Labs Test 09/14/16 09:12 Sodium Level 140 MEQ/L Potassium Level 4.0 MEQ/L Chloride Level 105 MEQ/L Carbon Dioxide Level 26.4 MEQ/L Anion Gap 9 MEQ/L Blood Urea Nitrogen 21 MG/DL Creatinine 0.75 MG/DL Estimat Glomerular Filtration 81 ML/MIN Rate Random Glucose 81 MG/DL Hemoglobin A1c 5.4 % Calcium Level 9.3 MG/DL Triglycerides Level 158 MG/DL Cholesterol Level 226 MG/DL LDL Cholesterol 150 MG/DL HDL Cholesterol 44.9 MG/DL Cholesterol/HDL Ratio 5.03 RATIO Thyroid Stimulating Hormone 1.790 uIU/ML 3rd Gen Vitals/IOs Vital Signs Date Time Temp Pulse Resp B/P Pulse Ox O2 Delivery O2 Flow Rate FiO2 09/14/16 04:59 98.7 70 18 109/66 95 Intake and Output 09/13/16 09/13/16 09/14/16 08:00 16:00 00:00 Intake Total 1440 ml 1440 ml Balance 1440 ml 1440 ml Assessment & Plan Problem List: (1) Paranoid schizophrenia, chronic condition with acute exacerbation ICD Code: F20.0 Assessment & Plan Estimated LOS: 5-7 days Patient continues to be initially psychotic noted to be despite stimuli, continues to endorse that Dr. Gandhi is her neurologist. Patient agreed to allow examination of her leg weakness by other physicians. Patient slightly more interactive with staff although continues to be very guarded and paranoid. Patient continues to require inpatient psychiatric level of care for stabilization. Fluphenazine 10 mg by mouth twice a day with upward titration as needed for psychosis. Physical therapy 3-5 times a week during hospital stay; consult appreciated. Consult placed for neurology for assessment of patients report of lower extremity weakness. Continue to encourage patient out of bed and improve hygiene. Justification for Cont. Inpt. Patient at risk for decompensation with lower level of care Discharge Planning In process Request HC Surrog/Guard Advoc?: Yes (patient's mother) Rah Misrty MD Sep 14, 2016 18:14
--- NOTE | 2016-09-14 19:12 | MB ---
cc: TRAN DOVER M.D. DATE OF CONSULTATION 09/14/2016 HISTORY The patient is a 50-year-old woman with a history of leg weakness and for this reason a neurological consultation was called in. The patient is under the psychiatric unit and refused to participate and cooperate for most of the exam. She would not provide history except that she says she is unable to move her legs and at some point gave me the impression that this started today, but she really would not provide any details whatsoever. She asked me to leave and was expected to see Dr. Nelson to see her since by the patient's statement, Dr. Nelson was "appointed by the court to be her neurologist." Then I looked at some records and Dr. Nelson saw her back in June when she had elective mutism and paraplegia as well. At that time she refused evaluation including imaging studies and she is noncompliant to anticoagulation as she had a history of possible pulmonary embolism. On the exam today she was awake, alert, eating well using her hands reasonably well. Her right leg was flexed at the knee and the foot was below the left thigh, when I questioned this the patient says she uses her hand to bring her leg under the thigh. I observed that she was able to move her leg spontaneously at least to a certain extent. She does not volunteer any lower extremity motor functions. She does have symmetrical 1+ reflexes at the knees and ankles and plantar responses were flexor. She responded as expected in a normal manner to position sense of the distal lower extremities. Unclear if she is incontinent, she might use protection for her bladder but she does not have the catheter. ASSESSMENT Schizophrenic woman uncooperative for the neurologic interview and exam. Previous evaluation included that she was mute and only communicating by writing. She did have previous leg weakness as well. We need additional history from family or friends etc., I do not have more social information on her but at this point I believe her leg weakness to be purely from a psychiatric nature though I offered to have an MRI lumbar spine and she declined but I will place an order anyway. I will check a CPK and also check a B12 level on her. I will follow her if she allows the neurological followup. Thank you for asking us to participate in her care. MD YASIR Knowles/KK /5:58 PM /6:48 PM
[2016-09-14 20:24] LABS: CREATINE KINASE 68 U/L (26-192)
[2016-09-14] MEDS ORDERED: fluPHENAZine HCL 25 MG/10 ML VIAL IM PRN (21:00)
[2016-09-15 06:00] VITALS: BP 126/68; PULSE 64; RESP 17; TEMP 98; O2SAT 93
[2016-09-15] MEDS ORDERED: fluPHENAZine HCL 25 MG/10 ML VIAL IM PRN (15:30)
[2016-09-15 17:34] VITALS: BP 101/58; PULSE 68; RESP 18; TEMP 97.9; O2SAT 94
--- NOTE | 2016-09-15 18:07 | HHI.PYPN ---
Subjective Remarks Patient seen for follow-up, chart reviewed. Patient was taken to mental hygiene cord today for retention and for application for a guardian advocate which dump grounds checker decided to have patient continue treatment at this time. Patient was seen later that day and noted to be upset and tearful at times when mentioning court. Patient appeared upset when entry writer she does not agree with a testimony given in court today. She continues to have dissociation that she is not Emmy Krause but that she is Lias years. She continued denying that patient' s mother at her mother and that she testified in court believe that she is 14 years old and was oriented raised in [place]. During court session patient agreed to have MRI as recommended by neurology team to assess for her bilateral weakness but stated that had to be in open MRI she will refuse to go into a closed MRI. Patient agrees to go to group to go outside for outside activities. Patient noted to refuse to continue interview with entry writer. Review of Systems ROS Limitations: Uncooperative, Psychotic Except as stated in HPI: all other systems reviewed are Neg Objective Alert: Yes [place]: Place Mood: Other (okay) Affect: Flat Memory Intact: Comment (impaired) Hallucinations: Auditory Delusions: Yes Delusion Type: Paranoid Suicidal: Ideation (denies) Homicidal: Ideation (denies) Insight/Judgment Per insight, fair impulse control, poor judgment Vitals/IOs Vital Signs Date Time Temp Pulse Resp B/P Pulse Ox O2 Delivery O2 Flow Rate FiO2 09/15/16 17:34 97.9 68 18 101/58 94 Intake and Output 09/14/16 09/14/16 09/15/16 08:00 16:00 00:00 Intake Total 720 ml 480 ml 1200 ml Balance 720 ml 480 ml 1200 ml Assessment & Plan Problem List: (1) Paranoid schizophrenia, chronic condition with acute exacerbation ICD Code: F20.0 Assessment & Plan Estimated LOS: 7-10 days. Patient at this time continues to endorse psychotic symptoms including auditory hallucinations which at times she is noted to have responded to internal stimuli, noted to be internally preoccupied at times. Patient continues to have dissociation that she has not Hattie entry writer's but that she is Ms. Weston. Patient is interacting with staff and entry writer more than prior and appears to be responding to current treatment regimen without continues to be delusional and disorganized. Fluphenazine will be increased to 12.5 by mouth twice a day for psychosis. Monitor for medication response and possible adverse drug reactions. Discharge planning and process Justification for Cont. Inpt. Patient at risk for further decompensation if it lower level of care Discharge Planning In progress Request HC Surrog/Guard Advoc?: Yes (patient's mother) Rah Mistry MD Sep 15, 2016 18:07
[2016-09-16 06:00] VITALS: BP 131/71; PULSE 63; RESP 16; TEMP 97.9; O2SAT 96
--- NOTE | 2016-09-16 17:10 | HHI.PYPN ---
Subjective Remarks Patient is seen for follow up, chart reviewed. As per nursing report patient is refusing MRI imaging. Patient was found lying in hospital bed, noted to be ignoring lead technical writer and refusing to engage in interview. Patient was able to respond stated she was upset about being mistaken another person referring to yesterdays court hearing tested only. Patient continues to state that she has a code and that at certain police inspector could read the information on her current. When asked if lead technical writer had a coat as well as she states everyone has a during interview patient was noted to be responding to internal stimuli and to be internally preoccupied. Patient noted to become more irritable throughout interview with states that is all thank you pull sheets over her head. Patient continues to endorse that she has leg weakness and unable to walk. Patient has been seen by neurology per continues to refuse further evaluation and workup. Review of Systems Except as stated in HPI: all other systems reviewed are Neg Objective Alert: Yes [place]: Place Mood: Other (upset) Affect: Flat Memory Intact: Comment (impaired) Hallucinations: Auditory Delusions: Yes Delusion Type: Paranoid, Other (bizarre delusions of having internal devices implanted in her head and a code on her arm) Suicidal: Ideation (denies) Homicidal: Ideation (denies) Insight/Judgment Poor insight, fair impulse control, poor judgment Vitals/IOs Vital Signs Date Time Temp Pulse Resp B/P Pulse Ox O2 Delivery O2 Flow Rate FiO2 09/16/16 06:00 97.9 63 16 131/71 96 Intake and Output 09/15/16 09/15/16 09/15/16 07:59 15:59 23:59 Intake Total 240 ml 1080 ml Balance 240 ml 1080 ml Assessment & Plan Problem List: (1) Paranoid schizophrenia, chronic condition with acute exacerbation ICD Code: F20.0 Assessment & Plan Estimated LOS: 5-7 days. Patient is time continues to endorse psychotic symptoms noted to be responding to internal stimuli and talking to self. Patient also continues to have dissociation stating that she is not Mery Krause but that she is Ms. Weston patient continues to endorse paranoid and bizarre delusions of having code and an internal communicating device. Fluphenazine will be increased to 15 mg by mouth twice a day for psychosis. Monitor for medication response and possible adverse drug reactions. Continue to encourage patient to improve on personal hygiene and to participate in groups and activities while on the unit. Discharge planning in process. Justification for Cont. Inpt. Patient at risk for decompensation lower level of care Discharge Planning In progress Request HC Surrog/Guard Advoc?: Yes (patient's mother) Rah Mistry MD Sep 16, 2016 17:10
[2016-09-16] MEDS ORDERED: fluPHENAZine HCL 25 MG/10 ML VIAL IM PRN (17:15)
[2016-09-16 17:25] VITALS: BP 118/67; PULSE 78; RESP 18; TEMP 98.2; O2SAT 96
[2016-09-17 06:18] VITALS: BP 94/50; PULSE 66; RESP 18; TEMP 98.1; O2SAT 97
[2016-09-17 11:30] VITALS: BP_SYST 105; BP_SYST 88; BP_DIAS 40; BP_DIAS 65; PULSE 73
--- NOTE | 2016-09-17 12:58 | HHI.PYPN ---
Subjective Remarks Patient was seen and case discussed with nursing. Patient remains irritable and uncooperative. Appears to be responding to internal stimuli. One low blood pressure reading this morning and it was repeated and was again low. Patient denies dizziness or pain. Continues to refuse MRI Objective Alert: Yes [place]: Place Mood: Other (upset) Affect: Flat Memory Intact: Comment (impaired) Hallucinations: Auditory Delusions: Yes Delusion Type: Paranoid, Other (bizarre delusions of having internal devices implanted in her head and a code on her arm) Suicidal: Ideation (denies) Homicidal: Ideation (denies) Insight/Judgment Poor Vitals/IOs Vital Signs Date Time Temp Pulse Resp B/P Pulse Ox O2 Delivery O2 Flow Rate FiO2 09/17/16 06:18 98.1 66 18 94/50 97 Intake and Output 09/16/16 09/16/16 09/16/16 07:59 15:59 23:59 Intake Total 240 ml 1200 ml Balance 240 ml 1200 ml Assessment & Plan Problem List: (1) Paranoid schizophrenia, chronic condition with acute exacerbation ICD Code: F20.0 Assessment & Plan Hypotension could be from antipsychotic. As a precaution, we will get a medical consult and order an EKG vitals every 6 hours including orthostatics Justification for Cont. Inpt. Patient will decompensate in a less restrictive setting Request HC Surrog/Guard Advoc?: Yes (patient's mother) Enrico Garcia DO Sep 17, 2016 12:58
--- NOTE | 2016-09-17 17:01 | PD.CONS ---
HPI Service [facility] Hospitalists Consult Requested By Dr. Garcia Reason for Consult Hypotension Primary Care Physician Unknown Diagnoses: History of Present Illness Written by Evelyn Belle, acting as scribe for Dr. Hamilton on 09/17/16 at 16:16. Ms. Krause is a 50-year-old female patient with a known history of multiple psychiatric hospital admissions, paranoid schizophrenia, history of pulmonary embolism and medication noncompliance who is seen in the [facility] psychiatry unit primarily for psychosis with episodes of hypotension today. Hospitalist team has been consulted for medical management. Per RN and medical record patient had two low BP readings today which have now currently resolved. Patient seen and examined, asymptomatic, denies any new acute complaints, lying in bed comfortably. Patient does state she has bilateral lower extremity weakness and has been seen by Dr. Michel this week. CPK and B12 all negative. Patient does require assistance to get out of bed to wheelchair. Denies any chest pain, shortness of breath, abdominal pain, nausea or vomiting, diarrhea or dysuria. Does state she is eating well with good appetite. It should be noted that patient has a history of PE and has refused work up, treatment and medications. Review of Systems Neurologic: COMPLAINS OF: Localized weakness (bilateral lower leg weakness ) Except as stated in HPI: all other systems reviewed are Neg Past Family Social History Allergies: Coded Allergies: No Known Allergies (Unverified , 07/01/16) Past Medical History Paranoid schizophrenia, acute on chronic History of PE, refusing work up, treatment and medications Dyslipidemia Past Surgical History Denies any surgical history. Reported Medications Active Nystop Topical (Nystatin Topical) 100,000 Unit/Gm Powd 1 Applic TOPICAL Q12HR apply under breasts end date 09/19/16 Active Ordered Medications Current Medications Medications (Trade) Dose Ordered Sig/Nimo Route Start Time Stop Time Status Last Admin (Ativan Inj) 2 mg Q8H PRN IM 09/08/16 23:45 (Ativan) 2 mg Q8H PRN PO 09/08/16 23:45 (Ativan) 1 mg Q6H PRN PO 09/09/16 20:00 (Ativan Inj) 1 mg Q6H PRN IM 09/09/16 20:00 (Benadryl) 50 mg HS PRN PO 09/09/16 20:00 (Tylenol) 650 mg Q4H PRN PO 09/09/16 20:00 (Milk Of Magnesia Liq) 30 ml DAILY PRN PO 09/09/16 20:00 (Mag-Al Plus Susp Liq) 30 ml Q6H PRN PO 09/09/16 20:00 (Pill Splitter) 1 ea UNSCH PRN OTHER 09/12/16 14:45 (Prolixin) 15 mg Q12HR PO 09/16/16 21:00 09/17/16 09:43 (Prolixin Inj) 15 mg Q12HR PRN IM 09/16/16 17:15 Family History Denies any known significant family history, patient was an orphan. Social History Denies any tobacco use. Denies any alcohol use. Denies any illicit drug use. Physical Exam Vital Signs Vital Signs Date Time Temp Pulse Resp B/P Pulse Ox O2 Delivery O2 Flow Rate FiO2 09/17/16 11:30 73 88/40 105/65 09/17/16 06:18 98.1 66 18 94/50 97 09/16/16 17:25 98.2 78 18 118/67 96 Physical Exam GENERAL: Well-nourished, well-developed female patient in no apparent distress. SKIN: No rashes, ecchymoses or lesions. Warm and dry. HEENT: Atraumatic. Normocephalic. Pupils equal round and reactive. Extraocular motions intact. No scleral icterus. No injection or drainage. Nose without bleeding. Airway patent. NECK: Trachea midline. No JVD. Supple. CARDIOVASCULAR: Regular rate and rhythm. No murmur appreciated. RESPIRATORY: Clear to auscultation. Breath sounds equal bilaterally. No wheezes , rales, or rhonchi. GASTROINTESTINAL: Abdomen soft, non-tender, nondistended. No guarding. MUSCULOSKELETAL: Extremities without clubbing, cyanosis, or edema. No joint tenderness, effusion, or edema noted. NEUROLOGICAL: Awake and alert. Cranial nerves II through XII intact. Follows commands in bilateral upper extremities. Unable to move lower extremities. Five out of 5 muscle strength in bilateral upper extremities. Normal speech. Result Diagram: 09/14/1612 Assessment and Plan Assessment and Plan Ms. Krause is a 50-year-old female patient with a known history of multiple psychiatric hospital admissions, paranoid schizophrenia, history of pulmonary embolism and medication noncompliance who is seen in the [facility] psychiatry unit primarily for psychosis with episodes of hypotension today. Hospitalist team has been consulted for medical management. Paranoid schizophrenia, acute on chronic - Management per psychiatry team. - Continue antipsychotic. Hypotension, resolved now: Continue to monitor closely. BP in the 110's. EKG reviewed, SR, no arrhythmias. Thank you for this consultation. Will follow with you. This note was transcribed by [email or web address] []. I, Dr. Estefanía Hamilton personally performed the history, physical exam, and medical decision making; and confirmed the accuracy of the information in the transcribed note. Authenticated by Dr. Estefanía Hamilton on 09/18/16 at 19:04. This note was transcribed by [email or web address] [email or web address] . I, Dr. Estefanía Hamilton personally performed the history, physical exam, and medical decision making; and confirmed the accuracy of the information in the transcribed note. Authenticated by Dr. Estefanía Hamilton on 09/17/16 at 16:16. Evelyn Belle Sep 17, 2016 17:01 Estefanía Hamilton MD Sep 18, 2016 19:05
[2016-09-17 20:00] VITALS: BP_SYST 100; BP_SYST 104; BP_DIAS 59; BP_DIAS 62; PULSE 73; RESP 18; TEMP 98.4; O2SAT 97
[2016-09-18 05:57] VITALS: BP 120/78; PULSE 72; RESP 18; TEMP 97.9
[2016-09-18 10:54] VITALS: BP 107/58; PULSE 69
--- NOTE | 2016-09-18 11:29 | HHI.PYPN ---
Subjective Remarks Patient was seen and case discussed with nursing. Hypotension has resolved. EKG was within normal limits, and patient was seen by nurse practitioner. Patient remains oppositional during the interview. She is reading a book and refuses to make eye contact. Says she will only talk to the neurologist. Compliant with her medications. Largely seclusive to room Objective Alert: Yes [place]: Person, Place Mood: Oppositional Affect: Flat Memory Intact: Comment (impaired) Hallucinations: Auditory (would not answer) Delusions: Yes Delusion Type: Paranoid (would not answer), Other (would not answer) Suicidal: Ideation (would not answer) Homicidal: Ideation (would not answer) Insight/Judgment Poor Vitals/IOs Vital Signs Date Time Temp Pulse Resp B/P Pulse Ox O2 Delivery O2 Flow Rate FiO2 09/18/16 10:54 69 107/58 09/18/16 05:57 97.9 18 09/17/16 20:00 97 Intake and Output 09/17/16 09/17/16 09/18/16 08:00 16:00 00:00 Intake Total 480 ml 720 ml 1080 ml Balance 480 ml 720 ml 1080 ml Assessment & Plan Problem List: (1) Paranoid schizophrenia, chronic condition with acute exacerbation ICD Code: F20.0 Assessment & Plan Continue current treatment plan Justification for Cont. Inpt. Patient will decompensate in a less restrictive setting Request HC Surrog/Guard Advoc?: Yes (patient's mother) Enrico Garcia DO Sep 18, 2016 11:29
--- NOTE | 2016-09-18 17:10 | EKG ---
Date Performed: 09/17/2016 Time Performed: 14:41:23 PTAGE: 50 years EKG: Sinus rhythm LOW QRS VOLTAGE IN PRECORDIAL LEADS BORDERLINE ECG NO PREVIOUS TRACING DOCTOR: Migue Alicia Interpretating Date/Time 09/18/2016 17:08:42
[2016-09-18 18:01] VITALS: BP 115/60; PULSE 70; TEMP 98.3; O2SAT 98
[2016-09-19 05:23] VITALS: BP 115/71; PULSE 67; RESP 16; TEMP 98.4; O2SAT 97
--- NOTE | 2016-09-19 14:06 | HHI.PYPN ---
Subjective Remarks Patient seen in her room with nurse Silva and medical students Tony and Eugenie, chart reviewed, patient compliant medication. Patient continues to isolate, patient quite reluctant to speak with me in her room saying showing restricted talk to her neurologist. For now continue treatment Review of Systems Except as stated in HPI: all other systems reviewed are Neg Objective Alert: Yes Opp: Person, Place Mood: Oppositional Affect: Flat Memory Intact: Comment (impaired) Hallucinations: Auditory (would not answer) Delusions: Yes Delusion Type: Paranoid (would not answer), Other (would not answer) Suicidal: Ideation (would not answer) Homicidal: Ideation (would not answer) Insight/Judgment Very poor Vitals/IOs Vital Signs Date Time Temp Pulse Resp B/P Pulse Ox O2 Delivery O2 Flow Rate FiO2 09/19/16 05:23 98.4 67 16 115/71 97 Intake and Output 09/18/16 09/18/16 09/19/16 08:00 16:00 00:00 Intake Total 480 ml 1440 ml Balance 480 ml 1440 ml Assessment & Plan Problem List: (1) Paranoid schizophrenia, chronic condition with acute exacerbation ICD Code: F20.0 Assessment & Plan Estimated LOS: days patient remains paranoid and psychotic, compliant medication Justification for Cont. Inpt. At the present time patient will decompensate the placed in a lower level of care Discharge Planning To be determined Request HC Surrog/Guard Advoc?: Yes (patient's mother) Skip Montgomery MD Sep 19, 2016 14:06
[2016-09-19 18:14] VITALS: BP 120/61; PULSE 69; RESP 16; TEMP 99.8; O2SAT 96
[2016-09-20 01:20] VITALS: BP 104/82; PULSE 60; RESP 18
[2016-09-20] MEDS: LORazepam 1 MG TAB PO PRN (01:21)
[2016-09-20 05:38] VITALS: BP 128/62; PULSE 64; RESP 17; TEMP 97.8; O2SAT 95
--- NOTE | 2016-09-20 14:59 | HHI.PYPN ---
Subjective Remarks Patient seen for follow-up, chart reviewed. As per nursing report patient refused medications this morning and continues to refuse MRI for neurology follow-up. Patient found sitting on hospital bed, reading a novel and superficially cooperative in interview. Patient states that this weekend had been "okay" denies having any problems with bowel movement or urination, reports eating and drinking well, refused medications this morning stating that she is allergic to red and yellow dye as the medication given his morning was of the color pink. Patient states she does not mind taking more tablets but that it cannot be red or yellow color. Patient denies any depressive or manic symptoms continues denies any auditory hallucinations at times seen to be internally preoccupied and responding to internal stimuli. Patient was asked to recall her childhood patient states that this information is private and that only Dr. Arboleda has that information. When team attempted to address her housing conditions and or benefits she states that only Dr. Arboleda is able to speak on those issues. Patient denies any auditory or visual hallucinations. Continues to be noted to be internally preoccupied and endorsing delusions that he she is Mrs. Celio Weston. Review of Systems Except as stated in HPI: all other systems reviewed are Neg Objective Alert: Yes [place]: Person, Place Mood: Oppositional Affect: Flat (mostly flat but was able to laugh on one occasion) Memory Intact: Comment (impaired) Hallucinations: Auditory (would not answer) Delusions: Yes Delusion Type: Paranoid (would not answer), Other (would not answer) Suicidal: Ideation (denies) Homicidal: Ideation (denies) Insight/Judgment Poor insight, fair impulse control, poor judgment Vitals/IOs Vital Signs Date Time Temp Pulse Resp B/P Pulse Ox O2 Delivery O2 Flow Rate FiO2 09/20/16 05:38 97.8 64 17 128/62 95 Intake and Output 09/19/16 09/19/16 09/19/16 07:59 15:59 23:59 Intake Total 360 ml 840 ml 2010 ml Balance 360 ml 840 ml 2010 ml Assessment & Plan Problem List: (1) Paranoid schizophrenia, chronic condition with acute exacerbation ICD Code: F20.0 Assessment & Plan Estimated LOS: 7-10 days. Patient at the time continues to be acutely psychotic endorsing delusions that she is a different person than her given name , continues to be noted to be internally preoccupied and responding to internal stimuli. Patient currently more reactive and able to engage more in conversation but continues to report that Dr. Gandhi is a person that has all her information. Patient continues to be disorganized and unable to participate in discharge planning with team and that she denies needing services. Patient continues to refuse MRI. Prolixin was increased to 15 mg a.m. and 20 mg at bedtime for psychosis. Monitor her medication response and possible adverse drug reactions. Patient had episode of hypotension 2 days ago but have since resolved. Patient to be monitored for the same as treatment continues. Continue to encourage patient to participate in group activities. Discharge planning in progress. Justification for Cont. Inpt. Patient at risk for decompensation if it lower level care. Discharge Planning In progress Request HC Surrog/Guard Advoc?: Yes (patient's mother) Rah Mistry MD Sep 20, 2016 14:59
[2016-09-20 16:00] VITALS: BP 136/68; PULSE 71; RESP 18; TEMP 99.1; O2SAT 94
[2016-09-21] MEDS: LORazepam 1 MG TAB PO PRN ×4 (00:24→20:10)
[2016-09-21] MEDS: ACETAMINOPHEN 325 MG TAB PO PRN ×4 (02:26→20:16)
[2016-09-21 05:08] VITALS: BP 114/58; PULSE 68; RESP 14; TEMP 98.5; O2SAT 96
--- NOTE | 2016-09-21 10:56 | PD.TTN ---
Present for Treatment Team Treatment Team Staff: Provider (Dr Mistry ), Nurse (rose), Psych Therapist (Martha ), Occupational Therapist (Zeyad) Patient Problems 1. Discharge planning 2. Medication compliance 3. Knowledge deficit 4. Lack of coping skills Progress Toward Goals Provider Input: Would like for pt to get more active and out of the room with Rec Therapy Will persue state referral increased meds will look into more med adjustments Nurse Input: had chest pain overnight no distress meidally allergic to red dye she states, but took meds Psych Therapist Input: vaughn start state packet and meet with FACT team will follow up on SSDI and Medicaid appl not spoken to mother, SUNNI is auto claim representative Occupational Therapist Input: not coming to groups but will work towards getting out more for fresh air Martha Hoffman [facility] Sep 21, 2016 10:56 N[facility] Nov 23, 2016 11:16
--- NOTE | 2016-09-21 14:34 | HHI.PR ---
Subjective Remarks Reconsult patient with chest pain right side The patient had a h/o PE, however she was not compliant with medications. Patient denies having a h/o PE. She also is refusing tests. Agrees at this time to have CTA done. Patient denies having any cough, fever or chills. Patient reports chest pain with deep breath in her lower chest says pain is in the diaphragm on the right side. no sob, VSS, she is satting well on room air. No n/ v/d/c. Objective Vitals Vital Signs Date Time Temp Pulse Resp B/P Pulse Ox O2 Delivery O2 Flow Rate FiO2 09/21/16 05:08 98.5 68 14 114/58 96 09/20/16 16:00 99.1 71 18 136/68 94 I/O 09/20/16 09/20/16 09/20/16 09/21/16 09/21/16 09/21/16 07:00 15:00 23:00 07:00 15:00 23:00 Intake Total 90 ml 480 ml 1080 ml 240 ml 480 ml Balance 90 ml 480 ml 1080 ml 240 ml 480 ml Intake Oral 90 ml 480 ml 1080 ml 240 ml 480 ml # Voids 4 2 Objective Remarks GENERAL: Well-nourished, well-developed female patient in no apparent distress. CARDIOVASCULAR: Regular rate and rhythm. No murmur appreciated. RESPIRATORY: Clear to auscultation. Breath sounds equal bilaterally. No wheezes , rales, or rhonchi. GASTROINTESTINAL: Abdomen soft, non-tender, nondistended. No guarding. MUSCULOSKELETAL: Extremities without clubbing, cyanosis, or edema. No joint tenderness, effusion, or edema noted. NEUROLOGICAL: Awake and alert. Cranial nerves II through XII intact. Follows commands in bilateral upper extremities. Unable to move lower extremities. Five out of 5 muscle strength in bilateral upper extremities. Normal speech. Ms. Krause is a 50-year-old female patient with a known history of multiple psychiatric hospital admissions, paranoid schizophrenia, history of pulmonary embolism and medication noncompliance who is seen in the [facility] psychiatry unit primarily for psychosis with episodes of hypotension today. Hospitalist team has been consulted for medical management. Paranoid schizophrenia, acute on chronic - Management per psychiatry team. - Continue antipsychotic. Hypotension, resolved now: Continue to monitor closely. BP in the 110's. EKG reviewed, SR, no arrhythmias. LE weakness consult neurology, patient says her neurology is Dr Nelson. Plan fo rmRI lumbar spine, however patient refusing H/o PE patient was treated however she is non compliant with meds and follow up. Will do CTA chest to r/o PE Discussed with the patient, nurse, Estefanía Mcdaniels MD Sep 21, 2016 14:33
--- NOTE | 2016-09-21 17:20 | HHI.PYPN ---
Subjective Remarks Patient seen for follow-up, chart reviewed. As per nursing report as to the patient reported having some chest pain, vitals are stable at the time and the primary medical team had seen patient for follow-up, patient was not noted to be in distress at the time. As per primary medical team CT scan with contrast recommended to rule out pulmonary embolism which patient was ambivalent about accepting to cooperate for the study. Patient was found sitting on hospital bed , calm and cooperative in interview. Patient states that she been feeling fine , that she recently spoke to the hospitalist with recommendation of having a CT scan to rule out pulmonary embolism patient states that she has a history of pulmonary embolism and that it was a different person. Due to patient's current complaint of chest pain patient was encouraged to comply with the hospital's recommendations to rule out any acute process that may be life- threatening. Patient reluctantly agreed and stated that she is okay with a CT scan but refuses to be put in an MRI machine. Patient continues to endorse being allergic to red and yellow dye as she had refused taking her medications yesterday as they were the color red and despite medications this morning being the, RN she states continue to take medication but states that she would rather prefer taking many green ones and to have any medications with those 2 colors which she allegedly reports being allergic to despite having been taking these medications with these colors for the past couple of days prior. Patient continues to be noted to be responsive to internal stimuli, although noted to be more reactive and more engaged in conversation it before. Patient denies any auditory or visual hallucinations with continues to be slightly disorganized stating that Dr. Hopper was her court mandated physician and that all decisions must go through him as well as to her "sponsor" who happens to be the plate mounter of this hospital. Patient agrees to work with staff to maintain hygiene and this opened to participating in activities on the unit. Review of Systems Except as stated in HPI: all other systems reviewed are Neg Objective Alert: Yes [place]: Person, Place Mood: Other ("fine") Affect: Other (constricted but at times noted to smile.) Memory Intact: Comment (impaired) Hallucinations: Auditory (denies been noted to be responding to internal stimuli) Delusions: Yes Delusion Type: Paranoid, Other (continues to endorse being a different person) Suicidal: Ideation (denies) Homicidal: Ideation (denies) Insight/Judgment Impaired insight, fair impulse control, poor judgment Vitals/IOs Vital Signs Date Time Temp Pulse Resp B/P Pulse Ox O2 Delivery O2 Flow Rate FiO2 09/21/16 05:08 98.5 68 14 114/58 96 Intake and Output 09/20/16 09/20/16 09/21/16 08:00 16:00 00:00 Intake Total 480 ml 1080 ml Balance 480 ml 1080 ml Assessment & Plan Problem List: (1) Paranoid schizophrenia, chronic condition with acute exacerbation ICD Code: F20.0 Assessment & Plan Patient this time continues to have acute psychotic symptoms with internal preoccupation and noted to be responded to internal stimuli during interview as well as continued delusion that he she is someone else. Patient has been compliant with treatment as of recent head want to refuse medications due to the color of the tablets stating that she is allergic to red and yellow dot. Patient was encouraged to continue medication regimen and to comply with medical recommendations for imaging due to her recent complaints of chest pain given her history of pulmonary embolism. We'll attempt to contact Dr. Omar Grajeda a neurologist here at [facility] to assist in management of this patient as she continues with the delusion that this physician is her court appointed physician. Fluphenazine to be increased to 20 mg by mouth twice a day for psychosis. Monitor for medication response and possible adverse drug reactions. Continue to encourage improvement of hygiene and participation in groups and activities on the unit. Recommendations as per primary medical team. Discharge planning in progress. Application for state hospitalization is considered as patient current rate of improvement may require extended inpatient management for stabilization. Justification for Cont. Inpt. Patient at risk for further decompensation if at lower level of care Discharge Planning In progress Request HC Surrog/Guard Advoc?: Yes (patient's mother) Rah Mistry MD Sep 21, 2016 17:20
[2016-09-21 21:46] VITALS: BP 122/68; PULSE 76; RESP 18; TEMP 99.2; O2SAT 95
[2016-09-22 06:00] VITALS: BP 106/55; PULSE 70; RESP 17; TEMP 98.3; O2SAT 98
--- NOTE | 2016-09-22 14:27 | HHI.PYPN ---
Subjective Remarks Patient seen for follow-up, chart reviewed. Patient found lying in hospital bed noted to be sufficiently cooperative in interview today. Patient stated that she is feeling "fine" but upset that she had iodine put an arm rash patient had recent CT scan ordered by medical team to rule out PE as patient has history of recent PE. Patient states that she had difficulty sleeping last evening because of her roommate but did not elaborate why. Patient noted to be internally preoccupied during interview responding to internal stimuli continue to be perseverative on Dr. Nelson being involved in her care. Patient reports tolerating medications at this time with no noted adverse drug reactions. Patient encouraged to improve her personal hygiene and to participate in group activities. Review of Systems Except as stated in HPI: all other systems reviewed are Neg Objective Alert: Yes [place]: Person, Place Mood: Other ("fine") Affect: Other (constricted) Memory Intact: Comment (impaired) Hallucinations: Auditory (denies been noted to be responding to internal stimuli) Delusions: Yes Delusion Type: Paranoid, Other (continues to endorse being a different person) Suicidal: Ideation (denies) Homicidal: Ideation (denies) Insight/Judgment Poor insight, fair impulse control and poor judgment Vitals/IOs Vital Signs Date Time Temp Pulse Resp B/P Pulse Ox O2 Delivery O2 Flow Rate FiO2 09/22/16 06:00 98.3 70 17 106/55 98 Intake and Output 09/21/16 09/21/16 09/22/16 08:00 16:00 00:00 Intake Total 720 ml 2 ml Balance 720 ml 2 ml Assessment & Plan Problem List: (1) Paranoid schizophrenia, chronic condition with acute exacerbation ICD Code: F20.0 Assessment & Plan Estimated LOS: 5-7 days. Patient continues to endorse psychotic symptoms noted to be internally preoccupied and responding to internal stimuli along with with delusion that she is a 14-year-old girl from [place] named Ms. Weston. Patient continues to adhere to medications and has started to comply with medical recommendations. Patient noted to be slightly more interactive with staff continues to require encouragement to adhere to medical recommendations. Patient to be continued on current treatment, monitor for medication response and possible adverse drug reactions. Continue to encourage patient to improve personal hygiene and participating in groups activities. As per medical team patient had CT pulmonary angiogram ordered, unclear if patient was able to complete procedure for imaging. Consult with pulmonology pending, VQ scan also pending. Discharge planning in progress. Request for state hospitalization will be initiated. Justification for Cont. Inpt. Patient risk for further decompensation if at lower level of care Discharge Planning Discharge planning in progress Request HC Surrog/Guard Advoc?: Yes (patient's mother) Rah Mistry MD Sep 22, 2016 14:27
--- NOTE | 2016-09-22 14:59 | HHI.PR ---
Subjective Remarks Patient in nad. She is sleepy. Says she has right sided chest pain with deep inspiration, no sob. She is satting well on room air. She is refusing CTA pulm to r/o PE, she is telling me she has contrast allergy but not able to specify and doesn't want to do it. Will order VQ scan. Also consult pulm. No n/v/d/c. No fever or chills. no cough. She is asking to see Dr Nelson neurology Objective Vitals Vital Signs Date Time Temp Pulse Resp B/P Pulse Ox O2 Delivery O2 Flow Rate FiO2 09/22/16 06:00 98.3 70 17 106/55 98 09/21/16 21:46 99.2 76 18 122/68 95 I/O 09/21/16 09/21/16 09/21/16 09/22/16 09/22/16 09/22/16 07:00 15:00 23:00 07:00 15:00 23:00 Intake Total 240 ml 480 ml 2 ml 720 ml Balance 240 ml 480 ml 2 ml 720 ml Intake Oral 240 ml 480 ml 2 ml 480 ml Oral Supplement 240 ml # Voids 2 1 Objective Remarks GENERAL: Well-nourished, well-developed female patient in no apparent distress. CARDIOVASCULAR: Regular rate and rhythm. No murmur appreciated. RESPIRATORY: Clear to auscultation. Breath sounds equal bilaterally. No wheezes , rales, or rhonchi. GASTROINTESTINAL: Abdomen soft, non-tender, nondistended. No guarding. MUSCULOSKELETAL: Extremities without clubbing, cyanosis, or edema. No joint tenderness, effusion, or edema noted. NEUROLOGICAL: Awake and alert. Cranial nerves II through XII intact. Follows commands in bilateral upper extremities. Unable to move lower extremities. Five out of 5 muscle strength in bilateral upper extremities. Normal speech. A/P Assessment and Plan Ms. Krause is a 50-year-old female patient with a known history of multiple psychiatric hospital admissions, paranoid schizophrenia, history of pulmonary embolism and medication noncompliance who is seen in the [facility] psychiatry unit primarily for psychosis with episodes of hypotension today. Hospitalist team has been consulted for medical management. H/o PE patient was treated however she is non compliant with meds and follow up. Refusing CTA chest to r/o PE, she is telling me she has contrast allergy but not able to specify and doesn't want to do it. Will order VQ scan. Also consult pulm. Paranoid schizophrenia, acute on chronic - Management per psychiatry team. - Continue antipsychotic. Hypotension, resolved now: Continue to monitor closely. BP in the 110's. EKG reviewed, SR, no arrhythmias. LE weakness consult neurology, patient says her neurology is Dr Nelson. Plan fo rmRI lumbar spine, however patient refusing Discussed with the patient, nurse, Dr Mistry psych Estefanía Hamilton MD Sep 22, 2016 14:59
--- NOTE | 2016-09-22 18:44 | MB ---
cc: ALONSO NGUYEN DATE OF CONSULTATION 09/22/[address] Hamilton REASON FOR CONSULTATION Evaluation of shortness of breath HISTORY OF PRESENT ILLNESS Ms. Mack is an uncooperative 50-year-old female with history of paranoid schizophrenia, multiple psychiatric admissions and history of pulmonary embolism. She is non-compliant, not taking any medication. Today she had an episode of shortness of breath. Now she denies any shortness of breath. The patient was advised for CT of the chest and she refused that and then she was advised to go for VQ scan which she refused. She states that she does not have any shortness of breath, does not have any chest pain. She says that her shortness of breath developed because of her allergy to the yellow dye. The patient does not want to have any workup done and she is very uncooperative. PAST MEDICAL HISTORY 1. Pulmonary embolism, multiple admission. 2. Schizophrenia. MEDICATIONS Currently taking 1. Prolixa 20 mg q.12 h 2. Benadryl 50 mg at nighttime as needed 3. Lorazepam 2 mg p.r.n. ALLERGIES NO KNOWN DRUG ALLERGIES. SOCIAL HISTORY She denies history of smoking or alcohol abuse. She is single. FAMILY HISTORY Noncontributory REVIEW OF SYSTEMS The patient states that she does not have any shortness of breath. Denies any chest pain, no headache or dizziness and she denies any history of pulmonary embolism, although it was documented she has pulmonary embolism. PHYSICAL EXAMINATION GENERAL: Well-built, well-nourished female not in any acute distress. VITAL SIGNS: Blood pressure 106/55, heart rate 70, respirations 17, oxygen saturation 98% on room air, temperature 98.3 HEENT: Pupils are equal and reactive to light. Oral mucosa and nasal mucosa normal. NECK: Supple. JVP not raised. CHEST: Equal bilaterally. No rhonchi. CARDIOVASCULAR: S1, S2 normal. ABDOMEN: Soft, nondistended. Bowel sounds present. EXTREMITIES: No edema. IMPRESSION 1. Reported episode of shortness of breath. Clinically, she is stable at this time without any shortness of breath, maintaining good oxygen saturation. 2. History of pulmonary embolism not on anticoagulation because the patient has refused. 3. Non-cooperative patient. She refuses any testing. PLAN She is stable on room air. The patient refuses workup. If she agrees to any workup for any further shortness of breath, I will be available p.r.n. for followup. Thank you, Dr. Hamilton, for this consultation. MD NICK Chen/ /5:47 PM /6:21 PM
[2016-09-22 19:21] VITALS: BP 107/59; PULSE 65; RESP 18; TEMP 98.5; O2SAT 95
[2016-09-23 06:03] VITALS: BP 138/72; PULSE 72; RESP 17; TEMP 98.2; O2SAT 100
[2016-09-23 16:23] VITALS: BP 115/66; PULSE 64; RESP 18; TEMP 98
--- NOTE | 2016-09-23 18:00 | HHI.PYPN ---
Subjective Remarks Patient seen for follow-up, chart review. Patient found sitting in day room initially refusing to engage in interview but later was able to cooperate; noted to be more reactive today even noted to have been laughing on occasion. Patient states that she had been feeling "fine", reports tolerating current medications, denying any adverse drug reactions. Patient states that she will not adhere to a workup for her "my lungs as they are perfectly fine". Patient continues to state that Dr. Mobley is her court mandated physician. Patient was reminded that she was seen by one of his colleagues Dr. Low from neurology and had requested workup for her complaints of leg weakness. Patient states that she will agree to having an MRI but only if the MRI machine would go up to her waist and not up to her chest or face. Program Coordinator Executive Education stated that seem will consult with radiology to see if they're able to the study without her head or chest be inserted through the machine. Patient is reporting her mood being "good" denying any suicidal homicidal ideations, denying any perceptual disturbances at this time, patient was not noted to be internally preoccupied today. Review of Systems Except as stated in HPI: all other systems reviewed are Neg Objective Alert: Yes [place]: Person, Place Mood: Other ("fine") Affect: Other (constricted but was able to laugh on one occasion) Memory Intact: Comment (impaired) Hallucinations: Other (denied at this time) Delusions: Yes Delusion Type: Paranoid, Other (continues to endorse being a different person) Suicidal: Ideation (denies) Homicidal: Ideation (denies) Insight/Judgment Poor insight, fair impulse control, poor judgment Remarks Patient appears stated age, obese, found sitting in hospital chair in day room, initially refusing to engage in interview but later was able to participate. Poor eye contact. Language is fluent and spontaneous. Thought process more organized today, thought content continues to endorse being Ms. Weston (another person), continues to perseverate on Dr. Arboleda be her court mandated lower. Continues to endorse having leg weakness and inability to walk. Vitals/IOs Vital Signs Date Time Temp Pulse Resp B/P Pulse Ox O2 Delivery O2 Flow Rate FiO2 09/23/16 16:23 98.0 64 18 115/66 09/23/16 06:03 100 Intake and Output 09/22/16 09/22/16 09/22/16 07:59 15:59 23:59 Intake Total 480 ml 240 ml 720 ml Balance 480 ml 240 ml 720 ml Assessment & Plan Problem List: (1) Paranoid schizophrenia, chronic condition with acute exacerbation ICD Code: F20.0 Assessment & Plan Patient at this time continues to report being out of the person, having bilateral leg weakness and inability to walk although refusing further workup to now. Patient recently refuse having workup for chest pain or shortness of breath that she had endorsed previously. Patient now agreeing to have MRI done other than those conditions stated in the history of present illness. Patient found more reactive today and morning engaging in interview with slightly more organized thought process. Patient to continue current treatment. Patient to be encouraged to cooperate with medical recommendations. Discharge planning in progress Justification for Cont. Inpt. Patient at risk for decompensation if it lower level of care Discharge Planning In progress Request HC Surrog/Guard Advoc?: Yes (patient's mother) Rah Mistry MD Sep 23, 2016 18:00
[2016-09-24] MEDS: ACETAMINOPHEN 325 MG TAB PO PRN ×2 (02:18→21:51)
[2016-09-24 06:00] VITALS: BP 115/64; PULSE 64; RESP 18; TEMP 97.9; O2SAT 95
--- NOTE | 2016-09-24 20:22 | HHI.PYPN ---
Subjective Remarks Pt seen and discussed with staff. Pt has been refusing to leave room and will only take meals if brought to room. She is selectively mute during interview and will only communicate with MD using hand gestures. She is compliant with medications and gives the "ok" hand signal. Objective Alert: Yes [place]: Person, Place Mood: Calm Affect: Flat Memory Intact: Comment (impaired) Hallucinations: Other (denied at this time) Delusions: Yes Delusion Type: Paranoid Suicidal: Ideation (denies) Homicidal: Ideation (denies) Insight/Judgment poor Vitals/IOs Vital Signs Date Time Temp Pulse Resp B/P Pulse Ox O2 Delivery O2 Flow Rate FiO2 09/24/16 06:00 97.9 64 18 115/64 95 Intake and Output 09/23/16 09/23/16 09/24/16 08:00 16:00 00:00 Intake Total 240 ml 1440 ml 960 ml Balance 240 ml 1440 ml 960 ml Assessment & Plan Problem List: (1) Paranoid schizophrenia, chronic condition with acute exacerbation ICD Code: F20.0 Assessment & Plan Continue current tx plan. Estimated LOS: days Justification for Cont. Inpt. impairments in reality construction and self care Request HC Surrog/Guard Advoc?: Yes (patient's mother) Alicia Smith MD Sep 24, 2016 20:21
[2016-09-25] MEDS: ACETAMINOPHEN 325 MG TAB PO PRN ×2 (04:18→21:15)
[2016-09-25 06:00] VITALS: BP 110/53; PULSE 63; RESP 18; TEMP 98.2; O2SAT 95
--- NOTE | 2016-09-25 16:15 | HHI.PYPN ---
Subjective Remarks Pt seen and discussed with staff. She continues to respond to internal stimuli and insist that she cannot move legs which is not true. She is resistant to leaving room, but did come out of room this afternoon in wheelchair with staff encouragement. Compliant with medications.No SI/HI Objective Alert: Yes [place]: Person, Place Mood: Calm Affect: Flat Memory Intact: Comment (impaired) Hallucinations: Other (denied at this time) Delusions: Yes Delusion Type: Paranoid Suicidal: Ideation (denies) Homicidal: Ideation (denies) Insight/Judgment poor Vitals/IOs Vital Signs Date Time Temp Pulse Resp B/P Pulse Ox O2 Delivery O2 Flow Rate FiO2 09/25/16 06:00 98.2 63 18 110/53 95 Intake and Output 09/24/16 09/24/16 09/25/16 08:00 16:00 00:00 Intake Total 1440 ml Balance 1440 ml Assessment & Plan Problem List: (1) Paranoid schizophrenia, chronic condition with acute exacerbation ICD Code: F20.0 Assessment & Plan Continue current tx plan. Estimated LOS: days Justification for Cont. Inpt. impairments in reality construction and self care Request HC Surrog/Guard Advoc?: Yes (patient's mother) Alicia Smith MD Sep 25, 2016 16:15
[2016-09-25 18:52] VITALS: BP 110/58; PULSE 72; RESP 16; TEMP 96.7; O2SAT 97
--- NOTE | 2016-09-25 18:53 | HHI.PR ---
Subjective Remarks Follow up for shortness of breath. Pt seen and examined. Pt declined full evaluation. Stated her last name is "brian ferguson." No new issues noted or reported by pt. Pt denied cough, shortness of breath, chest pain, NVD, chest pain, abdominal pain. Objective Vitals Vital Signs Date Time Temp Pulse Resp B/P Pulse Ox O2 Delivery O2 Flow Rate FiO2 09/25/16 06:00 98.2 63 18 110/53 95 I/O 09/24/16 09/24/16 09/24/16 09/25/16 09/25/16 09/25/16 07:00 15:00 23:00 07:00 15:00 23:00 Intake Total 1440 ml 1320 ml Balance 1440 ml 1320 ml Intake Oral 1440 ml 1320 ml # Voids 5 2 3 # Bowel Movements 2 1 Objective Remarks GENERAL: Pt laying a bed, sat up to allow examination. She did not allow full examination. SKIN: Warm and dry. HEAD: Normocephalic. EYES: No scleral icterus. No injection or drainage. NECK: not evaluated as pt declined. CARDIOVASCULAR: Regular rate and rhythm without murmurs, gallops, or rubs. RESPIRATORY: Breath sounds equal bilaterally. No accessory muscle use. GASTROINTESTINAL: Pt declined evaluation. MUSCULOSKELETAL: No cyanosis, or edema. PSYCHIATRIC: Pt stated name is Brian, urban Ferguson. Mood irritable, affect same. Limited cooperative. Medications and IVs Current Medications Medications (Trade) Dose Ordered Sig/Nimo Route Start Time Stop Time Status Last Admin (Ativan Inj) 2 mg Q8H PRN IM 09/08/16 23:45 (Ativan) 2 mg Q8H PRN PO 09/08/16 23:45 (Ativan) 1 mg Q6H PRN PO 09/09/16 20:00 09/21/16 20:10 (Ativan Inj) 1 mg Q6H PRN IM 09/09/16 20:00 (Benadryl) 50 mg HS PRN PO 09/09/16 20:00 09/19/16 21:48 (Tylenol) 650 mg Q4H PRN PO 09/09/16 20:00 09/25/16 04:18 (Milk Of Magnesia Liq) 30 ml DAILY PRN PO 7/28/17 20:00 (Mag-Al Plus Susp Liq) 30 ml Q6H PRN PO 09/09/16 20:00 (Pill Splitter) 1 ea UNSCH PRN OTHER 09/12/16 14:45 (Prolixin) 20 mg Q12HR PO 09/21/16 21:00 09/25/16 08:45 Urinary Catheter: No A/P Assessment and Plan Ms. Ferguson is a 50-year-old female patient with a known history of multiple psychiatric hospital admissions, paranoid schizophrenia, history of pulmonary embolism and medication noncompliance who is seen in the [facility]note 3[facility] psychiatry unit primarily for psychosis with episodes of hypotension today. Hospitalist team has been consulted for medical management. H/o PE patient was treated however she is non compliant with meds and follow up. Refusing CTA chest to r/o PE, she is telling me she has contrast allergy but not able to specify and doesn't want to do it. Will order VQ scan. Also consult pulm. Pt refusing stars specialist evaluation (per note). V/q scan not completed due to pt refusal. Paranoid schizophrenia, acute on chronic - Management per psychiatry team. - Continue antipsychotic. Hypotension, resolved now: Continue to monitor closely. BP in the 110's. EKG reviewed, SR, no arrhythmias. LE weakness consult neurology, patient says her neurology is Dr Nelson. Plan fo rmRI lumbar spine, however patient refusing Discussed with the patient, nurse, and Dr. Hamilton Discharge Planning Discharge planning ongoing. Buddy Kemp Jr. Sep 25, 2016 18:52
[2016-09-26] MEDS: ACETAMINOPHEN 325 MG TAB PO PRN (02:27)
[2016-09-26 05:44] VITALS: BP 96/57; PULSE 60; RESP 18; TEMP 98.6
--- NOTE | 2016-09-26 15:34 | HHI.PYPN ---
Subjective Remarks Patient to follow, chart review. As per nursing report and discussion, patient requires encouragement to be taking out of the room, continues to state that she 's been having leg weakness and unable to stand or walk. Patient find a room sitting watching television and been able to engage in interview with real estate underwriter today. Patient had become for radiology that she would be imaged without her head going into the MRI machine which she refuses to do. Patient more reactive today, more engaging and states that she would like to be discharged soon and when real estate underwriter asked where she would be discharge patient did not provide any answer whether she wants explore options. His or her mood has been feeling "alright" and that lately she did have some lower back discomfort which workup for the same was encouraged and she agreed to. Patient denies any perceptual disturbances not noted to be internally preoccupied today but continues to endorse that she is a different person than her stated name. When real estate underwriter began to explore social aspect of her life patient refused to continue and states "that is all for today". Review of Systems Except as stated in HPI: all other systems reviewed are Neg Objective Alert: Yes [place]: Person, Place Mood: Calm Affect: Restricted (but more reactive today) Memory Intact: Comment (impaired) Hallucinations: Other (denied at this time) Delusions: Yes Delusion Type: Paranoid Suicidal: Ideation (denies) Homicidal: Ideation (denies) Insight/Judgment Poor insight, fair impulse control, poor judgment Remarks Patient appears stated age, obese, in hospital gown, superficial cooperative in interview. Speech normal rate tone and prosody, thought process linear, organized. Thought content denies suicidal homicidal ideations denies any perceptual disturbances or continue with bizarre delusions that she is unable to walk as well as her being a different person. Vitals/IOs Vital Signs Date Time Temp Pulse Resp B/P Pulse Ox O2 Delivery O2 Flow Rate FiO2 09/26/16 05:44 98.6 60 18 96/57 09/25/16 18:52 97 Intake and Output 09/25/16 09/25/16 09/26/16 08:00 16:00 00:00 Intake Total 1320 ml Balance 1320 ml Assessment & Plan Problem List: (1) Paranoid schizophrenia, chronic condition with acute exacerbation ICD Code: F20.0 Assessment & Plan Patient continues to endorse that she is a different person, endorsed that she is unable to walk although staff noticed her to be altered over to her side using her legs, noted to be more reactive and engaging in interview but continues to be superficially cooperative when trying to address her social circumstances. Patient agrees to have MRI done under the circumstances that she be put in feet first and the machine not to go above her waist. Patient currently current treatment for now, but will consider adding second antipsychotic as patient currently on maximum dose of fluphenazine and continues to have psychotic symptoms despite partial response. Discharge planning in progress Justification for Cont. Inpt. Patient at risk for decompensation if at lower-level of care Discharge Planning In progress Request HC Surrog/Guard Advoc?: Yes (patient's mother) Rah Mistry MD Sep 26, 2016 15:34
--- NOTE | 2016-09-26 17:42 | HHI.PR ---
Subjective Remarks Patient denies cp/sob denies fevers/chills bp borderline low afebrile Objective Vitals Vital Signs Date Time Temp Pulse Resp B/P Pulse Ox O2 Delivery O2 Flow Rate FiO2 09/26/16 05:44 98.6 60 18 96/57 09/25/16 18:52 96.7 72 16 110/58 97 I/O 09/25/16 09/25/16 09/25/16 09/26/16 09/26/16 09/26/16 06:59 14:59 22:59 06:59 14:59 22:59 Intake Total 1320 ml 720 ml Output Total 1 ml Balance 1320 ml -1 ml 720 ml Intake Oral 1320 ml 720 ml Output Urine Total 1 ml # Voids 2 3 # Bowel Movements 1 Objective Remarks refused examination Medications and IVs Current Medications Medications (Trade) Dose Ordered Sig/Nimo Route Start Time Stop Time Status Last Admin (Ativan Inj) 2 mg Q8H PRN IM 09/08/16 23:45 (Ativan) 2 mg Q8H PRN PO 09/08/16 23:45 (Ativan) 1 mg Q6H PRN PO 09/09/16 20:00 09/21/16 20:10 (Ativan Inj) 1 mg Q6H PRN IM 09/09/16 20:00 (Benadryl) 50 mg HS PRN PO 09/09/16 20:00 09/19/16 21:48 (Tylenol) 650 mg Q4H PRN PO 09/09/16 20:00 09/26/16 02:27 (Milk Of Magnesia Liq) 30 ml DAILY PRN PO 09/09/16 20:00 (Mag-Al Plus Susp Liq) 30 ml Q6H PRN PO 09/09/16 20:00 (Pill Splitter) 1 ea UNSCH PRN OTHER 09/12/16 14:45 (Prolixin) 20 mg Q12HR PO 09/21/16 21:00 09/26/16 09:37 Urinary Catheter: No Vascular Central Line Catheter: No A/P Assessment and Plan Ms. Krause is a 50-year-old female patient with a known history of multiple psychiatric hospital admissions, paranoid schizophrenia, history of pulmonary embolism and medication noncompliance who is seen in the [facility] psychiatry unit primarily for psychosis with episodes of hypotension today. Hospitalist team has been consulted for medical management. H/o PE patient was treated however she is non compliant with meds and follow up. Refusing CTA chest to r/o PE, she is telling me she has contrast allergy but not able to specify and doesn't want to do it. Will order VQ scan. Also consult pulm. Pt refusing flight communications specialist evaluation (per note). V/q scan not completed due to pt refusal. Paranoid schizophrenia, acute on chronic - Management per psychiatry team. - Continue antipsychotic. Hypotension, resolved now: Continue to monitor closely. BP in the 110's. EKG reviewed, SR, no arrhythmias. 09/26 patient with borderline hypotension but asymptomatic. Encourage po intake of fluids. discussed with SANDRA. CLARISSE tirado consult neurology, patient says her neurology is Dr Nelson. Plan fo rmRI lumbar spine, however patient refusing Doni Álvarez MD Sep 26, 2016 17:42
[2016-09-26 18:04] VITALS: BP 95/53; PULSE 69; RESP 17; TEMP 98; O2SAT 96
[2016-09-27 05:35] VITALS: BP 95/52; PULSE 77; RESP 17; TEMP 98.3; O2SAT 98
--- NOTE | 2016-09-27 16:37 | RADRPT ---
EXAM DATE/TIME: 09/27/2016 13:30 [place] COMPARISON: No previous studies available for comparison. INDICATIONS : Back pain. MEDICAL HISTORY : Unknown. SURGICAL HISTORY : Unknown, cleared by rad. ENCOUNTER: Subsequent ACUITY: 3 months PAIN SCORE: 5/10 LOCATION: low back. TECHNIQUE: Multiplanar multisequence MRI of the lumbar spine was performed without contrast. FINDINGS: The most caudal appearing lumbar vertebra is numbered as L5. VERTEBRAE: Homogeneous signal. Normal alignment. CONUS: Normal level and configuration. T12-L1: The thecal sac has a normal diameter. No evidence of disc bulge or protrusion. The neural foramina are patent bilaterally. L1-L2: The thecal sac has a normal diameter. No evidence of disc bulge or protrusion. The neural foramina are patent bilaterally. L2-L3: The thecal sac has a normal diameter. No evidence of disc bulge or protrusion. The neural foramina are patent bilaterally. L3-L4: The thecal sac has a normal diameter. No evidence of disc bulge or protrusion. The neural foramina are patent bilaterally. L4-L5: There is loss of disc signal and height consistent with degenerative disc disease. Mild diffuse disc bulge as well as facet joint hypertrophy and ligamentous laxity result in mild bilateral foraminal na rrowing but no spinal stenosis. No focal disc herniation is noted. L5-S1: There is loss of disc height and signal intensity consistent with degenerative disc disease. Diffuse disc osteophyte complex and facet joint hypertrophy result in minimal bilateral foraminal narrowing. CONCLUSION: 1. Mild bilateral foraminal at L4-5 and minimal bilateral foraminal narrowing at L5-S1. 2. Degenerative disease at L4-5 and L5-S1. Juve Ocampo MD on September 27, 2016 at 16:31 Board Certified Radiologist. This report was verified electronically.
--- NOTE | 2016-09-27 16:52 | HHI.PR ---
Subjective Remarks patient's bp low w sbp in the 90's patient denies dizziness, cp,sob denies cough, fevers or chills Objective Vitals Vital Signs Date Time Temp Pulse Resp B/P Pulse Ox O2 Delivery O2 Flow Rate FiO2 09/27/16 05:35 98.3 77 17 95/52 98 09/26/16 18:04 98.0 69 17 95/53 96 I/O 09/26/16 09/26/16 09/26/16 09/27/16 09/27/16 09/27/16 07:00 15:00 23:00 07:00 15:00 23:00 Intake Total 720 ml 2640 ml 1520 ml Output Total 1 ml Balance -1 ml 720 ml 2640 ml 1520 ml Intake Oral 720 ml 2640 ml 1520 ml Output Urine Total 1 ml # Voids 6 2 1 # Bowel Movements 0 1 Objective Remarks refused examination Medications and IVs Current Medications Medications (Trade) Dose Ordered Sig/Nimo Route Start Time Stop Time Status Last Admin (Ativan Inj) 2 mg Q8H PRN IM 09/08/16 23:45 (Ativan) 2 mg Q8H PRN PO 09/08/16 23:45 (Ativan) 1 mg Q6H PRN PO 09/09/16 20:00 09/21/16 20:10 (Ativan Inj) 1 mg Q6H PRN IM 09/09/16 20:00 (Benadryl) 50 mg HS PRN PO 09/09/16 20:00 09/19/16 21:48 (Tylenol) 650 mg Q4H PRN PO 09/09/16 20:00 09/26/16 02:27 (Milk Of Magnesia Liq) 30 ml DAILY PRN PO 09/09/16 20:00 (Mag-Al Plus Susp Liq) 30 ml Q6H PRN PO 09/09/16 20:00 (Pill Splitter) 1 ea UNSCH PRN OTHER 09/12/16 14:45 (Prolixin) 20 mg Q12HR PO 09/21/16 21:00 09/27/16 09:00 (Proamatine) 5 mg TID@07,12,17 PO 09/27/16 17:00 UNV A/P Assessment and Plan Ms. Krause is a 50-year-old female patient with a known history of multiple psychiatric hospital admissions, paranoid schizophrenia, history of pulmonary embolism and medication noncompliance who is seen in the [facility] psychiatry unit primarily for psychosis with episodes of hypotension today. Hospitalist team has been consulted for medical management. H/o PE patient was treated however she is non compliant with meds and follow up. VQ sacn ordered and pulmonary consulted. Pt refusing bed control specialist evaluation (per note). V/q scan not completed due to pt refusal. Paranoid schizophrenia, acute on chronic - Management per psychiatry team. - Continue antipsychotic. Hypotension, resolved now: Continue to monitor closely. BP in the 110's. EKG reviewed, SR, no arrhythmias. 09/26 patient with borderline hypotension but asymptomatic. Encourage po intake of fluids. discussed with RN. 09/27 Patient is borderline hypotensive - Will start on midodrine, reinforced the importance of oral intake. Continue to encourage fluids. LE weakness consult neurology, patient says her neurology is Dr Nelson. Plan fo rmRI lumbar spine, however patient refusing Doni Álvarez MD Sep 27, 2016 16:52
[2016-09-27 16:53] LABS: BLOOD, URINE MOD (NEG); COMMENT (UR) CULT NOT INDICATED; CULTURE IF INDICATED CULT NOT INDICATED; GLUCOSE,URINE NEG (NEG); KETONE, URINE NEG (NEG); NITRITE,URINE NEG (NEG); SQUAMOUS EPITHELIAL CELL URINE 3 /hpf (0-5); URINE COLOR YELLOW (YELLW/STRAW)
--- NOTE | 2016-09-27 17:12 | HHI.PYPN ---
Subjective Remarks Patient seen for follow-up, chart reviewed. Patient found lying in hospital bed was able to engage in interview. Patient noted to be more reactive and engage in today. Patient says that she had been feeling "okay" and agrees to having MRI done to evaluate lower back pain. Patient denies any physical complaints other than the back pain and difficulty moving her legs. Patient denies any adverse drug reactions to current medication regimen. Patient is medication compliant. Patient noted to sit up and move her legs when the visiting talks came around to the unit. Patient noted to be in good spirits after seeing the dogs. When tried to discuss social aspect of her life patient refused to continue interview. Review of Systems Except as stated in HPI: all other systems reviewed are Neg Objective Alert: Yes [place]: Person, Place Mood: Calm Affect: Restricted (but more reactive today) Memory Intact: Comment (impaired) Hallucinations: Other (denied at this time) Delusions: Yes Delusion Type: Paranoid Suicidal: Ideation (denies) Homicidal: Ideation (denies) Insight/Judgment Poor insight, fair impulse control poor judgment Labs Test 09/27/16 16:30 Urine Color YELLOW Urine Turbidity HAZY Urine pH 6.0 Urine Specific [place] 1.021 Urine Protein TRACE mg/dL Urine Glucose (UA) NEG mg/dL Urine Ketones NEG mg/dL Urine Occult Blood MOD Urine Nitrite NEG Urine Bilirubin NEG Urine Urobilinogen LESS THAN 2.0 MG/DL Urine Leukocyte Esterase NEG Urine RBC 22 /hpf Urine WBC 1 /hpf Urine Squamous Epithelial 3 /hpf Cells Urine Amorphous Sediment RARE Microscopic Urinalysis Comment CULT NOT INDICATED Vitals/IOs Vital Signs Date Time Temp Pulse Resp B/P Pulse Ox O2 Delivery O2 Flow Rate FiO2 09/27/16 05:35 98.3 77 17 95/52 98 Intake and Output 09/26/16 09/26/16 09/26/16 07:59 15:59 23:59 Intake Total 720 ml 2640 ml Output Total 1 ml Balance -1 ml 720 ml 2640 ml Assessment & Plan Problem List: (1) Paranoid schizophrenia, chronic condition with acute exacerbation ICD Code: F20.0 Assessment & Plan Patient noted to be more reactive and engaging in interview. Patient able to express more affect with more organized thought process. Patient continues to have delusions that she is another person other than her legal name. Patient continues to endorse difficulty with lower extremity movement and states that she cannot walk. Patient agreed to MRI study today. Continue medication regimen [place] for medication response and adverse drug reactions. Medical team to follow up after imaging report done for recommendations. Justification for Cont. Inpt. Patient at risk for further decompensation if it lower level of care Discharge Planning In progress Request HC Surrog/Guard Advoc?: Yes (patient's mother) Rah Mistry MD Sep 27, 2016 17:12
[2016-09-27] MEDS: MIDODRINE 5 MG TAB PO SCH (17:35)
[2016-09-27 18:22] VITALS: BP 116/55; PULSE 70; RESP 18; TEMP 97.8; O2SAT 96
[2016-09-27] MEDS: ACETAMINOPHEN 325 MG TAB PO PRN (21:00)
[2016-09-27] MEDS: LORazepam 1 MG TAB PO PRN (21:00)
[2016-09-28 05:45] VITALS: BP 126/70; PULSE 56; RESP 16; TEMP 98
[2016-09-28 06:31] VITALS: BP 126/70; PULSE 56; RESP 12; TEMP 98; O2SAT 96
[2016-09-28] MEDS: MIDODRINE 5 MG TAB PO SCH ×3 (06:53→17:00)
[2016-09-28] MEDS: PRAVASTATIN SOD 10 MG TAB PO SCH (10:15)
--- NOTE | 2016-09-28 13:19 | HHI.PYPN ---
Subjective Remarks Patient seen for follow-up, chart review. After discussion with nursing staff patient continues to be bedbound refusing to stand or walk. Patient did have MRI done yesterday. Patient found sitting in hospital bed able to engage in interview. Patient noted more reactive and engaging today. Patient states that she had had MRI done yesterday which she was able to tolerate. Patient states that she had gone with the group activities to watch television in the day room with other patients which she enjoyed. Today she plans on doing the same. She reports adhering to medication denies any adverse drug reactions. Patient states that her mood has been "okay" denying any depressive manic symptoms at this time. She denies any auditory or visual hallucinations or delusions. Patient appears to be more organized in her thought process. Patient nurse was also present during interview and attentive the patient that she was noticing her skin to be slightly red in an area of her backside. Patient was advised to continue to move her position noted to prevent lesions of that area due to prolonged pressure in that same position. Patient stated that she did not want that to happen and was to continue to attempt to move more and to avoid this. Patient noticed during interview today that she was able to move her legs her feet and is willing to comply with physical therapy to regain her mobility. When asked what patient plans to do upon discharge she stated that she was considering going back to school or perhaps finding a job was but was not sure in what area. Review of Systems Except as stated in HPI: all other systems reviewed are Neg Objective Alert: Yes [place]: Person, Place Mood: Calm Affect: Restricted (but more reactive today) Memory Intact: Comment (impaired) Hallucinations: Other (denied at this time) Delusions: Yes Delusion Type: Paranoid Suicidal: Ideation (denies) Homicidal: Ideation (denies) Insight/Judgment Poor insight, impulse control is fair and judgment is limited Labs Test 09/27/16 16:30 Urine Color YELLOW Urine Turbidity HAZY Urine pH 6.0 Urine Specific [place] 1.021 Urine Protein TRACE mg/dL Urine Glucose (UA) NEG mg/dL Urine Ketones NEG mg/dL Urine Occult Blood MOD Urine Nitrite NEG Urine Bilirubin NEG Urine Urobilinogen LESS THAN 2.0 MG/DL Urine Leukocyte Esterase NEG Urine RBC 22 /hpf Urine WBC 1 /hpf Urine Squamous Epithelial 3 /hpf Cells Urine Amorphous Sediment RARE Microscopic Urinalysis Comment CULT NOT INDICATED Vitals/IOs Vital Signs Date Time Temp Pulse Resp B/P Pulse Ox O2 Delivery O2 Flow Rate FiO2 09/28/16 06:31 98.0 56 12 126/70 96 Intake and Output 09/27/16 09/27/16 09/28/16 08:00 16:00 00:00 Intake Total 480 ml 1040 ml 1640 ml Balance 480 ml 1040 ml 1640 ml Assessment & Plan Problem List: (1) Paranoid schizophrenia, chronic condition with acute exacerbation ICD Code: F20.0 Assessment & Plan Patient continues to improve on current regimen noted to be more organized in her thought process, comply with staff and treatment at this time. Patient had agreed to MRI study and had it done yesterday and currently agreeing to work with physical therapy to improve her ability of her lower extremities. Patient no longer stated that she is unable to move her legs. Patient noted to be more interactive with staff and engaging activities now on the unit. Patient continues to to have delusions of being another person but has been noted to be less internally preoccupied or responding to internal stimuli. Justification for Cont. Inpt. Patient risk for decompensation if it lower level of care Discharge Planning In progress Request HC Surrog/Guard Advoc?: Yes (patient's mother) Rah Mistry MD Sep 28, 2016 13:19
--- NOTE | 2016-09-28 13:26 | HHI.PR ---
Subjective Remarks patient has no complaints denies cp/sob denies dizziness bp improved Objective Vitals Vital Signs Date Time Temp Pulse Resp B/P Pulse Ox O2 Delivery O2 Flow Rate FiO2 09/28/16 06:31 98.0 56 12 126/70 96 09/28/16 05:45 98.0 56 16 126/70 09/27/16 18:22 97.8 70 18 116/55 96 I/O 09/27/16 09/27/16 09/27/16 09/28/16 09/28/16 09/28/16 07:00 15:00 23:00 07:00 15:00 23:00 Intake Total 1520 ml 1640 ml Balance 1520 ml 1640 ml Intake Oral 1520 ml 1640 ml # Voids 2 1 1 2 # Bowel Movements 1 Imaging Last Impressions Lumbar Spine MRI 09/27/16 0000 Signed Impressions: Service Date/Time: Tuesday, September 27, 2016 13:30 - CONCLUSION: 1. Mild bilateral foraminal at L4-5 and minimal bilateral foraminal narrowing at L5- S1. 2. Degenerative disease at L4-5 and L5-S1. Juve Ocampo MD Objective Remarks refused examination Medications and IVs Current Medications Medications (Trade) Dose Ordered Sig/Nimo Route Start Time Stop Time Status Last Admin (Ativan Inj) 2 mg Q8H PRN IM 09/08/16 23:45 (Ativan) 2 mg Q8H PRN PO 09/08/16 23:45 (Ativan) 1 mg Q6H PRN PO 09/09/16 20:00 09/27/16 21:00 (Ativan Inj) 1 mg Q6H PRN IM 09/09/16 20:00 (Benadryl) 50 mg HS PRN PO 09/09/16 20:00 09/19/16 21:48 (Tylenol) 650 mg Q4H PRN PO 09/09/16 20:00 09/27/16 21:00 (Milk Of Magnesia Liq) 30 ml DAILY PRN PO 09/09/16 20:00 (Mag-Al Plus Susp Liq) 30 ml Q6H PRN PO 09/09/16 20:00 (Pill Splitter) 1 ea UNSCH PRN OTHER 09/12/16 14:45 (Prolixin) 20 mg Q12HR PO 09/21/16 21:00 09/28/16 09:00 (Proamatine) 5 mg TID@07,12,17 PO 09/27/16 18:00 09/28/16 09:10 (Pravachol) 10 mg DAILY PO 09/28/16 10:15 09/28/16 10:15 A/P Assessment and Plan Ms. Krause is a 50-year-old female patient with a known history of multiple psychiatric hospital admissions, paranoid schizophrenia, history of pulmonary embolism and medication noncompliance who is seen in the [facility] psychiatry unit primarily for psychosis with episodes of hypotension today. Hospitalist team has been consulted for medical management. H/o PE patient was treated however she is non compliant with meds and follow up. VQ sacn ordered and pulmonary consulted. Pt refusing pharmacovigilance specialist evaluation (per note). V/q scan not completed due to pt refusal. Paranoid schizophrenia, acute on chronic - Management per psychiatry team. - Continue antipsychotic. Hypotension, resolved now: BP in the 110's. EKG reviewed, SR, no arrhythmias. - 09/26 patient with borderline hypotension but asymptomatic. Encourage po intake of fluids. discussed with RN. - 09/27 Patient is borderline hypotensive - Will start on midodrine, reinforced the importance of oral intake. Continue to encourage fluids. - 09/28 BP improved on Midodrine, continue. Hyperlipidemia - Lipid profile showed elevated triglycerides at 158, total cholesterol elevated at 226 and LDL cholesterol of 150. -Afterr review of ASCVD score her 10% risk is 2.2%, lifestyle recommendations are recommended in this case, however due to patient schizophrenia this is likely very difficult to achieve. I will start on low- dose statin since the patient LDL cholesterol is very elevated. - Monitor lipid profile as an outpatient. Leg weakness - MRI of the lumbar spine shows mild bilateral foraminal at L4-5 and the bilateral foraminal narrowing at L5-S1. Degenerative disease at L4 to S5 and L5 -S1. - Follow-up neurology recommendations, however there is no evidence or reported cord impingement. I will sign off. Please reconsult if needed. Doni Álvarez MD Sep 28, 2016 13:26
[2016-09-28 18:00] VITALS: PULSE 65; TEMP 91.2; O2SAT 97
[2016-09-29 06:00] VITALS: BP 129/59; PULSE 61; RESP 18; TEMP 98.4
[2016-09-29] MEDS: MIDODRINE 5 MG TAB PO SCH ×4 (06:15→17:00)
[2016-09-29] MEDS: PRAVASTATIN SOD 10 MG TAB PO SCH (09:00)
[2016-09-29 11:46] VITALS: BP 117/70
--- NOTE | 2016-09-29 16:11 | MB ---
cc: MARI GOLDSTEIN M.D. DATE OF CONSULTATION: 09/29/2016. REASON FOR CONSULTATION: Lower extremity weakness. HISTORY OF PRESENT ILLNESS: Ms. Krause is a 50-year-old woman who states she has had weakness in both legs for quite some time. She feels they are improving. However, she denies any upper extremity weakness or numbness. She denies any bowel or bladder complaints. She has not had any double vision. She does have some mild back pain. The patient is admitted to the psychiatry service with the diagnosis of paranoid schizophrenia. MEDICATIONS: Medications are : 1. Pravachol 10 milligrams daily. 2. Midodrine 5 milligrams three times a day. 3. Prolixin 20 milligrams q.12 h. 4. Ativan as needed. 5. Benadryl as needed. NEUROLOGIC EXAMINATION: VITAL SIGNS: Blood pressure 117/70, pulse is 61, respiratory rate is 18, temperature 99 degrees. HIGHER CORTICAL FUNCTIONS: She is alert and oriented. Speech is normal. CRANIAL NERVES: Intact. The extraocular movements are full. There is no ptosis. MOTOR: Motor exam demonstrates 5/5 strength of all groups in the upper extremities. She has 4/5 in the iliopsoas. Strength is symmetrically 5/5 quads and hamstrings. Strength is symmetric 5/5 tibialis anterior and 5/5 gastrocnemius/soleus. SENSORY: Sensory exam is normal. DEEP TENDON REFLEXES: 1+ symmetric with no Babinski sign present. IMAGING STUDIES: Lumbar spine MRI was reviewed showing mild spondylosis at L5-S1 with minimal bilateral foraminal encroachment and mild foraminal encroachment at L4-5. LABS: Sodium is 140, potassium 4, chloride 105, carbon dioxide 26, BUN is 21, creatinine 0.75. CPK is 68. Triglycerides 158. Cholesterol 226. LDL is 150. IMPRESSION: Lower extremity weakness. This seems to be improving at the present time. She has mild spondylosis of the lumbar spine. This would not be expected to cause her leg weakness. Would recommend further evaluation with an MRI of the cervical and thoracic spine to rule out myelopathy or cord compression lesion. Would also like to check labs including a B12 level and thyroid panel. MD DEVAN Donahue/[place] /2:00 PM /3:59 PM
[2016-09-29 17:02] VITALS: BP 94/54; PULSE 65; RESP 18; TEMP 98.6; O2SAT 98
[2016-09-29] MEDS: LORazepam 2 MG TAB PO PRN (17:35)
--- NOTE | 2016-09-29 18:17 | HHI.PYPN ---
Subjective Remarks Patient seen for follow-up, chart reviewed. After discussion with nursing staff patient has had no behavioral issues, but had been refusing Pravachol and midodrine. Patient found sitting in hospital bed, noted to be in good spirits. Patient states that she was working with physical therapy had walked 50 feet. Patient states now she is attempting to be able to get herself to the restroom by herself but was advised to let staff know to avoid falls. television yesterday watching a show that she enjoyed. Patient states that her mood has been "fine", denies any physical complaints at this time, denies any perceptual disturbances. On 1019 to address social asks of her life patient refused to continue interview. Review of Systems Except as stated in HPI: all other systems reviewed are Neg Objective Alert: Yes [place]: Person, Place Mood: Calm Affect: Appropriate Memory Intact: Comment (impaired) Hallucinations: Other (denied at this time) Delusions: Yes Delusion Type: Paranoid (less so today) Suicidal: Ideation (denies) Homicidal: Ideation (denies) Insight/Judgment Limited insight, impulse control and judgment Labs Laboratory Tests Test 09/27/16 16:30 Urine Turbidity HAZY (CLEAR) Urine Occult Blood MOD (NEG) Urine RBC 22 /hpf (0-3) Vitals/IOs Vital Signs Date Time Temp Pulse Resp B/P Pulse Ox O2 Delivery O2 Flow Rate FiO2 09/29/16 17:02 98.6 65 18 94/54 98 Intake and Output 09/28/16 09/28/16 09/29/16 08:00 16:00 00:00 Intake Total 360 ml 840 ml Output Total 960 ml Balance -600 ml 840 ml Assessment & Plan Problem List: (1) Paranoid schizophrenia, chronic condition with acute exacerbation ICD Code: F20.0 Assessment & Plan Patient noted to be continuing to improve as patient no longer endorsing perceptual disturbances, although unclear whether she continues to have delusions of being a different person as patient refuses to engage in this topic at this time. Patient cooperative more with medical workup for lower leg weakness which she had MRI study completed and had follow up with Dr. Low. Consult appreciated. Patient to continue recommendations as per medical team. Patient to continue physical therapy. Patient is a current treatment, her medication response and adverse drug reactions. Supportive psychotherapy provided. Discharge planning in progress. CBC and complete metabolic panel ordered. Justification for Cont. Inpt. Patient risk for decompensation if at lower level of care Discharge Planning In progress Request HC Surrog/Guard Advoc?: Yes (patient's mother) Rah Mistry MD Sep 29, 2016 18:17
[2016-09-30] MEDS: MIDODRINE 5 MG TAB PO SCH ×3 (06:03→17:00)
[2016-09-30 06:06] VITALS: BP 106/61; PULSE 63; RESP 18; TEMP 98.2; O2SAT 96
[2016-09-30] MEDS: PRAVASTATIN SOD 10 MG TAB PO SCH (09:00)
--- NOTE | 2016-09-30 16:10 | HHI.PYPN ---
Subjective Remarks Patient seen for follow, chart reviewed. As discussion with nursing staff patient refuses blood work yesterday and today. Patient found lying in hospital bed was able to engage in interview today. Patient states that she had gone outside earlier today enjoyed it with the rest of the group. Patient also reports having spoken with Dr. Low from neurology consultation yesterday. Patient reports her mood being "okay", denies any depressive manic or perceptual disturbances unclear whether she continues to have the delusion of being another person. Patient when asked to address this becomes very guarded and refuses to continue interview. Patient encouraged to continue working with physical therapy as she is now able to walk to the restroom by herself along with the use of walker. Patient are concerned about possible social research assistant that she can acquire. Review of Systems Except as stated in HPI: all other systems reviewed are Neg Objective Alert: Yes [place]: Person, Place Mood: Calm Affect: Appropriate Memory Intact: Comment (impaired) Hallucinations: Other (denied at this time) Delusions: Yes Delusion Type: Paranoid (less so today) Suicidal: Ideation (denies) Homicidal: Ideation (denies) Insight/Judgment Mood insight, fair impulse control and limited judgment Vitals/IOs Vital Signs Date Time Temp Pulse Resp B/P Pulse Ox O2 Delivery O2 Flow Rate FiO2 09/30/16 06:06 98.2 63 18 106/61 96 Intake and Output 09/29/16 09/29/16 09/30/16 08:00 16:00 00:00 Intake Total 240 ml 480 ml Balance 240 ml 480 ml Assessment & Plan Problem List: (1) Paranoid schizophrenia, chronic condition with acute exacerbation ICD Code: F20.0 Assessment & Plan Patient is time continues to be improving with a more organized thought process , denying any perceptual disturbances but unclear whether she continues to have delusion of being a different from person. Patient followed by neurology consult team, consult appreciated. Patient continues to work with physical therapy to regain mobility of her lower extremities. Patient continues to refuse any further blood work or imaging workup as she states is unable to tolerate being in an MRI machine. Continue current treatment, discharge planning in progress Justification for Cont. Inpt. Patient at risk for further decompensation if at lower level of care. Discharge Planning In progress Request HC Surrog/Guard Advoc?: Yes (patient's mother) Rah Mistry MD Sep 30, 2016 16:10
[2016-09-30 17:30] VITALS: BP 112/57; PULSE 75; RESP 18; TEMP 98.4; O2SAT 97
[2016-09-30] MEDS: LORazepam 1 MG TAB PO PRN (17:55)
[2016-10-01 05:54] VITALS: BP 123/74; PULSE 56; RESP 15; TEMP 98; O2SAT 96
[2016-10-01] MEDS: MIDODRINE 5 MG TAB PO SCH ×3 (06:07→17:00)
[2016-10-01] MEDS: PRAVASTATIN SOD 10 MG TAB PO SCH (09:00)
[2016-10-01 12:11] LABS: BASOPHIL # 0.1 TH/MM3 (0-0.2); BASOPHIL % 0.6 % (0.0-2.0); EOSINOPHIL # 0.4 TH/MM3 (0-0.4); EOSINOPHIL % 4.9 % (0.0-4.0); HEMATOCRIT 39.7 % (35.0-46.0); HEMO FLAGS DIFF FINAL; LYMPH % 30.5 % (9.0-44.0); LYMPHOCYTE # 2.6 TH/MM3 (1.0-4.8); MEAN CELL VOLUME 84.8 FL (80.0-100.0); MEAN CORPUSCULAR HEMOGLOBIN 28.1 PG (27.0-34.0); MEAN CORPUSCULAR HGB CONC 33.1 % (32.0-36.0); MONO % 5.7 % (0.0-8.0); NEUT % 58.3 % (16.0-70.0); PLATELET COUNT 304 TH/MM3 (150-450); RED BLOOD COUNT 4.68 MIL/MM3 (4.00-5.30); RED CELL DISTRIBUTION WIDTH 14.8 % (11.6-17.2); WHITE BLOOD COUNT 8.6 TH/MM3 (4.0-11.0)
--- NOTE | 2016-10-01 12:30 | HHI.PYPN ---
Subjective Remarks Patient was seen and case discussed with nursing. Patient is interviewed in bed. Remains oppositional refusing all her medications except for Prolixin. She is hypoverbal with poor insight. She denies psychotic symptoms. She denies suicidal ideation intent or plan. Objective Alert: Yes [place]: Person, Place Mood: Calm Affect: Restricted Memory Intact: Comment (impaired) Hallucinations: Other (denied at this time) Delusions: Yes Delusion Type: Paranoid (less so today) Suicidal: Ideation (denies) Homicidal: Ideation (denies) Insight/Judgment Poor Labs Test 10/01/16 10:52 White Blood Count 8.6 TH/MM3 Red Blood Count 4.68 MIL/MM3 Hemoglobin 13.1 GM/DL Hematocrit 39.7 % Mean Corpuscular Volume 84.8 FL Mean Corpuscular Hemoglobin 28.1 PG Mean Corpuscular Hemoglobin 33.1 % Concent Red Cell Distribution Width 14.8 % Platelet Count 304 TH/MM3 Mean Platelet Volume 7.8 FL Neutrophils (%) (Auto) 58.3 % Lymphocytes (%) (Auto) 30.5 % Monocytes (%) (Auto) 5.7 % Eosinophils (%) (Auto) 4.9 % Basophils (%) (Auto) 0.6 % Neutrophils # (Auto) 5.0 TH/MM3 Lymphocytes # (Auto) 2.6 TH/MM3 Monocytes # (Auto) 0.5 TH/MM3 Eosinophils # (Auto) 0.4 TH/MM3 Basophils # (Auto) 0.1 TH/MM3 CBC Comment DIFF FINAL Differential Comment Vitals/IOs Vital Signs Date Time Temp Pulse Resp B/P Pulse Ox O2 Delivery O2 Flow Rate FiO2 10/01/16 05:54 98.0 56 15 123/74 96 Intake and Output 09/30/16 09/30/16 10/01/16 08:00 16:00 00:00 Intake Total 240 ml 700 ml Balance 240 ml 700 ml Assessment & Plan Problem List: (1) Paranoid schizophrenia, chronic condition with acute exacerbation ICD Code: F20.0 Assessment & Plan Continue current treatment plan Justification for Cont. Inpt. Patient will decompensate in a less restrictive setting Request HC Surrog/Guard Advoc?: Yes (patient's mother) Enrico Garcia DO Oct 01, 2016 12:30
[2016-10-01 12:37] LABS: ANION GAP 6 MEQ/L (5-15); AST (GOT) 8 U/L (15-37); BICARBONATE 27.7 MEQ/L (21.0-32.0); BLOOD UREA NITROGEN 18 MG/DL (7-18); CHLORIDE 104 MEQ/L (98-107); GLOMERULAR FILTRATION RATE 93 ML/MIN (>89); MAGNESIUM 1.9 MG/DL (1.5-2.5); POTASSIUM 4.3 MEQ/L (3.5-5.1); SODIUM (NA) 138 MEQ/L (136-145)
[2016-10-01 13:04] LABS: ALKALINE PHOSPHATASE 61 U/L (45-117); ALT (GPT) 13 U/L (10-53); FREE T4 0.99 NG/DL (0.76-1.46); TOTAL BILIRUBIN ADULT 0.2 MG/DL (0.2-1.0)
[2016-10-01] MEDS: LORazepam 1 MG TAB PO PRN (20:22)
[2016-10-02 06:10] VITALS: BP 93/52; PULSE 66; RESP 16; TEMP 98.2; O2SAT 96
[2016-10-02] MEDS: MIDODRINE 5 MG TAB PO SCH ×3 (06:12→17:00)
[2016-10-02] MEDS: PRAVASTATIN SOD 10 MG TAB PO SCH (09:00)
--- NOTE | 2016-10-02 14:56 | HHI.PYPN ---
Subjective Remarks Patient was seen and case discussed with nursing. Patient remains oppositional apathetic. Minimal engaging during the interview. Per nursing sleeping and eating well. Behaving well on the unit. Refusing all her medications except Prolixin. Largely seclusive. Has not had any visitors or phone calls. Continues to deny any psychotic symptoms. Objective Alert: Yes [place]: Person, Place Mood: Calm Affect: Restricted Memory Intact: Comment (impaired) Hallucinations: Other (denied at this time) Delusions: Yes Delusion Type: Paranoid (vigilant) Suicidal: Ideation (denies) Homicidal: Ideation (denies) Insight/Judgment Poor Vitals/IOs Vital Signs Date Time Temp Pulse Resp B/P (MAP) Pulse Ox O2 Delivery O2 Flow Rate FiO2 10/02/16 06:10 98.2 66 16 93/52 (66) 96 Intake and Output 10/02/16 10/02/16 10/03/16 08:00 16:00 00:00 Intake Total 600 ml 600 ml Balance 600 ml 600 ml Assessment & Plan Problem List: (1) Paranoid schizophrenia, chronic condition with acute exacerbation ICD Codes: F20.0 - Paranoid schizophrenia Status: Acute Assessment & Plan Continue current treatment plan Justification for Cont. Inpt. Patient would decompensate in a less restrictive setting Request HC Surrog/Guard Advoc?: Yes (patient's mother) Enrico Garcia DO Oct 02, 2016 14:56
[2016-10-02] MEDS: LORazepam 1 MG TAB PO PRN (17:10)
[2016-10-02 18:04] VITALS: BP 97/56; PULSE 67; RESP 16; TEMP 97.2; O2SAT 97
[2016-10-03 06:22] VITALS: BP 103/58; PULSE 63; RESP 17; TEMP 99.3
[2016-10-03] MEDS: MIDODRINE 5 MG TAB PO SCH ×3 (06:42→12:59)
[2016-10-03] MEDS: PRAVASTATIN SOD 10 MG TAB PO SCH (08:58)
[2016-10-03] MEDS: LORazepam 1 MG TAB PO PRN ×2 (09:28→21:31)
[2016-10-03 18:10] VITALS: BP 96/29; PULSE 71; RESP 18; TEMP 98.6; O2SAT 94
--- NOTE | 2016-10-03 18:16 | HHI.PYPN ---
Subjective Remarks Patient seen for follow up, chart review. Patient was found lying on hospital bed, calm and cooperative with interview. Patient was asked by nurse to state her whole name which she stated her name correctly today and no longer stating she was Mery Weston. Patient reports having walked with her walker today but as per staff did not today. Patient noted to be more engaging and with organized thought process. The possibility of discharge to a facility was mentioned as well as if she had family or friends who she can stay with whcih she stated "I' ll think about it.". Patient at this time denies SI, HI, AVH and may be clearing up from the delusions. Review of Systems Except as stated in HPI: all other systems reviewed are Neg Objective Alert: Yes [place]: Person, Place Mood: Calm Affect: Restricted Memory Intact: Comment (impaired) Hallucinations: Other (denied at this time) Delusions: Yes (but no longer states being Mrs Murry) Delusion Type: Paranoid (less today) Suicidal: Ideation (denies) Homicidal: Ideation (denies) Insight/Judgment Improved insight, fair impulse control, improved judgement Vitals/IOs Vital Signs Date Time Temp Pulse Resp B/P (MAP) Pulse Ox O2 Delivery O2 Flow Rate FiO2 10/03/16 18:10 98.6 71 18 96/29 (51 94 Assessment & Plan Problem List: (1) Paranoid schizophrenia, chronic condition with acute exacerbation ICD Codes: F20.0 - Paranoid schizophrenia Status: Acute Assessment & Plan Patient continues to improve on current regimen, noted to be more organized, better related during interview, noted to have much more affect (smiling and laughing), noted to be less paranoid and no longer stating her name as Mrs. Weston. Continue current treatment, continue to encourage mobility with walker, not to be in bed all day, be active in groups and activities. Discharge planning in progress. Justification for Cont. Inpt. At risk for further decompansation if at lower level of care. Request HC Surrog/Guard Advoc?: Yes (patient's mother) Rah Mistry MD Oct 03, 2016 18:16
[2016-10-04 06:16] VITALS: BP 101/56; PULSE 69; RESP 20; TEMP 98.5; O2SAT 95
[2016-10-04] MEDS: MIDODRINE 5 MG TAB PO SCH ×3 (06:27→17:00)
[2016-10-04] MEDS: PRAVASTATIN SOD 10 MG TAB PO SCH ×2 (09:49→09:52)
[2016-10-04] MEDS: LORazepam 2 MG TAB PO PRN (09:58)
--- NOTE | 2016-10-04 14:33 | HHI.PYPN ---
Subjective Remarks Patient seen for follow-up, chart reviewed. After discussion withstaff patient continues to endorse that she was born in the year 2002, continues to refuse all other medications aside from Prolixin. Patient found sitting in common area eating lunch, cooperative interview. Patient states that she had been walking on her own around the unit about 10 feet with the use of a walker. Patient continues to refuse cervicothoracic MRI and all medications aside from fluphenazine. Patient states that she had been participating in [facility] earlier today and was in the music group listening to Naif Kang which she enjoyed. Patient at this time reports feeling "okay" denies any SI, HI, perceptual disturbances. Review of Systems Except as stated in HPI: all other systems reviewed are Neg Objective Alert: Yes [place]: Person, Place Mood: Calm Affect: Appropriate Memory Intact: Comment (impaired) Hallucinations: Other (denied at this time) Delusions: Yes (but no longer states being Mrs Weston.) Delusion Type: Paranoid (less today), Other (endorses that she was born in the year 2002) Suicidal: Ideation (denies) Homicidal: Ideation (denies) Insight/Judgment Poor insight, fair impulse control and poor judgment Vitals/IOs Vital Signs Date Time Temp Pulse Resp B/P (MAP) Pulse Ox O2 Delivery O2 Flow Rate FiO2 10/04/16 06:16 98.5 69 20 101/56 (71) 95 Intake and Output 10/04/16 10/04/16 10/05/16 08:00 16:00 00:00 Intake Total 480 ml 1440 ml Balance 480 ml 1440 ml Assessment & Plan Problem List: (1) Paranoid schizophrenia, chronic condition with acute exacerbation ICD Codes: F20.0 - Paranoid schizophrenia Status: Acute Assessment & Plan Patient continues to improve when she is now more well related and engaging in interview. Patient now complying more with recommendations, noted to be walking more using the walker less isolative and now participating in groups and activities. Patient continues to have bizarre delusion that she was born and the year 2002 which makes her 14 years old by calculation. Patient no longer states that she is so different person and recognizes her name as the name registered. Patient continues to refuse MRI of the cervical thoracic spine. Continue current treatment. Discharge planning in progress. Justification for Cont. Inpt. Patient at risk for further decompensation if at a lower level of care Request HC Surrog/Guard Advoc?: Yes (patient's mother) Rha Mistry MD Oct 04, 2016 14:33
[2016-10-04 17:00] VITALS: BP 108/64; PULSE 74; RESP 20; TEMP 98.7; O2SAT 96
[2016-10-04] MEDS: LORazepam 1 MG TAB PO PRN (21:10)
[2016-10-05] MEDS: MIDODRINE 5 MG TAB PO SCH ×3 (05:42→16:45)
[2016-10-05 05:51] VITALS: BP 108/65; PULSE 61; RESP 15; TEMP 97.7; O2SAT 96
[2016-10-05] MEDS: PRAVASTATIN SOD 10 MG TAB PO SCH ×2 (08:55→09:02)
[2016-10-05] MEDS: LORazepam 2 MG TAB PO PRN (09:03)
--- NOTE | 2016-10-05 13:41 | HHI.PYPN ---
Subjective Remarks Patient seen for follow-up, chart reviewed. Patient found lying on hospital bed , calm and cooperative interview. Patient states that earlier today she had been able to walk but 20 feet with her walker and continues to plan to do so later this afternoon. Patient reports planning is to continue to pursue to groups and activities. Patient was concerned to when her benefits would be approved which is unclear at this time. Patient also was considering applying for section 8 housing and other living facility options were discussed. When asked the patient had any friends or family which can be a support for her patient states she will let us now. Patient noted to be more guarded after asking about friends and family. Review of Systems Except as stated in HPI: all other systems reviewed are Neg Objective Alert: Yes [place]: Person, Place Mood: Calm Affect: Appropriate Memory Intact: Comment (impaired) Hallucinations: Other (denied at this time) Delusions: Yes (but no longer states being Mrs Murry) Delusion Type: Paranoid (less today), Other (endorses that she was born in the year 2002) Suicidal: Ideation (denies) Homicidal: Ideation (denies) Insight/Judgment Poor insight, fair impulse control and limited judgment Vitals/IOs Vital Signs Date Time Temp Pulse Resp B/P (MAP) Pulse Ox O2 Delivery O2 Flow Rate FiO2 10/05/16 05:51 97.7 61 15 108/65 (79) 96 Intake and Output 10/05/16 10/05/16 10/06/16 08:00 16:00 00:00 Intake Total 600 ml 240 ml Balance 600 ml 240 ml Assessment & Plan Problem List: (1) Paranoid schizophrenia, chronic condition with acute exacerbation ICD Codes: F20.0 - Paranoid schizophrenia Status: Acute Assessment & Plan Patient at this time noted to have less psychosis, with improved organized thought process, currently participating with recommendations aside from not taking medications other than her antipsychotic. Despite encouragement to have MRI patient continues to refuse. Continue current treatment, discharge planning in progress Justification for Cont. Inpt. Patient at risk for further decompensation if at a lower level of care Request HC Surrog/Guard Advoc?: Yes (patient's mother) Rah Mistry MD Oct 05, 2016 13:41
[2016-10-05 17:45] VITALS: BP 115/70; PULSE 74; RESP 17; TEMP 97.6; O2SAT 95
[2016-10-06 05:47] VITALS: BP 112/55; PULSE 72; RESP 19; TEMP 97.5; O2SAT 97
[2016-10-06] MEDS: MIDODRINE 5 MG TAB PO SCH ×3 (06:13→17:00)
[2016-10-06] MEDS: PRAVASTATIN SOD 10 MG TAB PO SCH (09:00)
--- NOTE | 2016-10-06 16:52 | HHI.PYPN ---
Subjective Remarks Patient seen for follow up, chart reviewed. Patient found lying on hospital bed. Patient states that yesterday she had walked with a walker and continues to try to improve her mobility. She reports he and drinking well. She states that she was able to watch a movie yesterday with a group and was able to read. Patient states her mood has been "okay" denies any physical complaints. Denies any perceptual disturbances at this time patient is asked what her birthday was cease stated 03/23/1966. Review of Systems Except as stated in HPI: all other systems reviewed are Neg Objective Alert: Yes [place]: Person, Place Mood: Calm Affect: Appropriate Memory Intact: Comment (impaired) Hallucinations: Other (denied at this time) Delusions: Yes (but no longer states being Mrs Muryr) Delusion Type: Paranoid (less today) Suicidal: Ideation (denies) Homicidal: Ideation (denies) Insight/Judgment Improved insight, impulse control and judgment Vitals/IOs Vital Signs Date Time Temp Pulse Resp B/P (MAP) Pulse Ox O2 Delivery O2 Flow Rate FiO2 10/06/16 05:47 97.5 72 19 112/55 (74) 97 Intake and Output 10/06/16 10/06/16 10/07/16 08:00 16:00 00:00 Intake Total 480 ml 240 ml Balance 480 ml 240 ml Assessment & Plan Problem List: (1) Paranoid schizophrenia, chronic condition with acute exacerbation ICD Codes: F20.0 - Paranoid schizophrenia Status: Acute Assessment & Plan Patient at this time continues to be noted to have improvement of organized thought process, no longer endorsing that she is 14 years old and gave appropriate date of . Although patient refusing all of the medications patient is compliant with antipsychotic. Continues to endorse compliance with all medications. Continue to endorse improvement of personal hygiene and participation in groups and activities. Discharge planning in progress Justification for Cont. Inpt. Patient at risk for further decompensation if at a lower level of care Request HC Surrog/Guard Advoc?: Yes (patient's mother) Rah Mistry MD Oct 06, 2016 16:52
[2016-10-06] MEDS: LORazepam 1 MG TAB PO PRN (17:47)
[2016-10-07 05:39] VITALS: BP 118/62; PULSE 71; RESP 16; TEMP 98.1
[2016-10-07] MEDS: MIDODRINE 5 MG TAB PO SCH ×3 (06:41→17:00)
[2016-10-07] MEDS: PRAVASTATIN SOD 10 MG TAB PO SCH (09:00)
[2016-10-07] MEDS: LORazepam 1 MG TAB PO PRN (15:10)
[2016-10-07] MEDS: ACETAMINOPHEN 325 MG TAB PO PRN (15:14)
[2016-10-07 17:53] VITALS: BP 140/67; PULSE 78; RESP 17; TEMP 98.3; O2SAT 95
--- NOTE | 2016-10-07 18:41 | HHI.PYPN ---
Subjective Remarks Patient seen for follow-up, chart reviewed. Patient found sitting on hospital bed but able to walk a short distance and back. She states that she has been "fine", denies any physical complaints, report tolerating medication well. She reports being interested in the rehabiliation program once her benefits have been processed. She is better related and no longer endorsing bizarre delusions although noted to be very guarded when speaking about family. Review of Systems Except as stated in HPI: all other systems reviewed are Neg Objective Alert: Yes [place]: Person, Place Mood: Calm Affect: Appropriate Memory Intact: Comment (impaired) Hallucinations: Other (denied at this time) Delusions: Yes (but no longer states being Mrs Murry) Delusion Type: Paranoid (less today) Suicidal: Ideation (denies) Homicidal: Ideation (denies) Insight/Judgment Improved insight, fair impulse control and improved judgement. Vitals/IOs Vital Signs Date Time Temp Pulse Resp B/P (MAP) Pulse Ox O2 Delivery O2 Flow Rate FiO2 10/07/16 17:53 98.3 78 17 140/67 (91) 95 Intake and Output 10/07/16 10/07/16 10/07/16 07:59 15:59 23:59 Intake Total 480 ml 480 ml Balance 480 ml 480 ml Assessment & Plan Problem List: (1) Paranoid schizophrenia, chronic condition with acute exacerbation ICD Codes: F20.0 - Paranoid schizophrenia Status: Acute Assessment & Plan Patient continues with improved organized thought process, relating better, more engaging in interview. Continue current treatment. encourage ambulation with walker, participation in groups and activities. Discharge planning in progress. Justification for Cont. Inpt. At risk for further decompensation if at lower level of care. Request HC Surrog/Guard Advoc?: Yes (patient's mother) Rah Mistry MD Oct 07, 2016 18:41
[2016-10-08] MEDS: MIDODRINE 5 MG TAB PO SCH ×3 (06:28→17:00)
[2016-10-08 06:41] VITALS: BP 98/61; PULSE 73; RESP 16; TEMP 98.6; O2SAT 97
[2016-10-08] MEDS: ACETAMINOPHEN 325 MG TAB PO PRN ×3 (06:56→20:36)
[2016-10-08] MEDS: PRAVASTATIN SOD 10 MG TAB PO SCH (09:00)
--- NOTE | 2016-10-08 16:44 | HHI.PYPN ---
Subjective Remarks Pt seen and discussed with staff. Pt is improving. She has been coming out of room more and has been walking with walker. Paranoia and delusions have decreased. Limited interactions with others. Compliant with psychiatric medications, but refusing other medications. No SI/HI Objective Alert: Yes [place]: Person, Place, Date Mood: Calm Affect: Appropriate Memory Intact: Comment (impaired) Hallucinations: Other (denied at this time) Delusions: Yes (but no longer states being Mrs Murry) Delusion Type: Paranoid (decreased) Suicidal: Ideation (denies) Homicidal: Ideation (denies) Insight/Judgment poor Vitals/IOs Vital Signs Date Time Temp Pulse Resp B/P (MAP) Pulse Ox O2 Delivery O2 Flow Rate FiO2 10/08/16 06:41 98.6 73 16 98/61 (73) 97 Intake and Output 10/08/16 10/08/16 10/09/16 08:00 16:00 00:00 Intake Total 240 ml Balance 240 ml Assessment & Plan Problem List: (1) Paranoid schizophrenia, chronic condition with acute exacerbation ICD Codes: F20.0 - Paranoid schizophrenia Status: Acute Assessment & Plan Continue current tx plan. Estimated LOS: days Justification for Cont. Inpt. impairments in reality construction and self care Request HC Surrog/Guard Advoc?: Yes (patient's mother) Alicia Smith MD Oct 08, 2016 16:44
[2016-10-08] MEDS: LORazepam 1 MG TAB PO PRN (17:46)
[2016-10-08 18:20] VITALS: BP 104/65; PULSE 63; RESP 18; TEMP 98.4; O2SAT 96
[2016-10-09] MEDS: MIDODRINE 5 MG TAB PO SCH ×3 (06:04→17:00)
[2016-10-09 06:14] VITALS: BP 108/56; PULSE 69; RESP 18; TEMP 98.1; O2SAT 96
[2016-10-09] MEDS: PRAVASTATIN SOD 10 MG TAB PO SCH (08:48)
[2016-10-09] MEDS: ACETAMINOPHEN 325 MG TAB PO PRN ×2 (09:52→21:04)
--- NOTE | 2016-10-09 13:51 | HHI.PYPN ---
Subjective Remarks Pt seen and discussed with staff. No behavioral problems overnight. She has been compliant with prolixin but refused other medications. She has been less paranoid but has been coming out of room more frequently. No SI/HI Objective Alert: Yes [place]: Person, Place, Date Mood: Calm Affect: Restricted Memory Intact: Comment (fair) Hallucinations: Other (denied at this time) Delusions: Yes Delusion Type: Paranoid (decreased) Suicidal: Ideation (denies) Homicidal: Ideation (denies) Insight/Judgment poor Vitals/IOs Vital Signs Date Time Temp Pulse Resp B/P (MAP) Pulse Ox O2 Delivery O2 Flow Rate FiO2 10/09/16 06:14 98.1 69 18 108/56 (73) 96 Intake and Output 10/09/16 10/09/16 10/10/16 08:00 16:00 00:00 Intake Total 240 ml Balance 240 ml Assessment & Plan Problem List: (1) Paranoid schizophrenia, chronic condition with acute exacerbation ICD Codes: F20.0 - Paranoid schizophrenia Status: Acute Assessment & Plan Pt improving. Continue current tx plan. Estimated LOS: days Justification for Cont. Inpt. risk of decompensation Request HC Surrog/Guard Advoc?: Yes (patient's mother) Alicia Smith MD Oct 09, 2016 13:51
[2016-10-09] MEDS: LORazepam 1 MG TAB PO PRN ×2 (15:35→20:58)
[2016-10-10] MEDS: MIDODRINE 5 MG TAB PO SCH ×3 (05:46→17:00)
[2016-10-10 06:01] VITALS: BP 109/59; PULSE 71; RESP 18; TEMP 97.4; O2SAT 96
[2016-10-10] MEDS: PRAVASTATIN SOD 10 MG TAB PO SCH (09:00)
[2016-10-10] MEDS: ACETAMINOPHEN 325 MG TAB PO PRN ×2 (09:19→20:59)
[2016-10-10] MEDS: LORazepam 1 MG TAB PO PRN ×3 (09:22→20:46)
--- NOTE | 2016-10-10 14:59 | HHI.PYPN ---
Subjective Remarks Patient seen for follow-up, chart reviewed. Patient found lying in hospital bed able to engage in interview. Patient states that she had an "okay weekend" stating that it was mostly uneventful but didn't dissipate in some groups then having gone outside for activity. Patient states that she continues to have much as she can. Patient states that she would like to look into the possibility of going to the assisted living facility but is aware that application for benefits still pending. Possibility of having her stay with friends or family was brought up which patient stated that she would think about. At this time denies any perceptual disturbances, denies any SI, HI or delusions at this time. Review of Systems Except as stated in HPI: all other systems reviewed are Neg Objective Alert: Yes [place]: Person, Place, Date Mood: Calm Affect: Restricted Memory Intact: Comment (fair) Hallucinations: Other (denied at this time) Delusions: Yes Delusion Type: Paranoid (decreased) Suicidal: Ideation (denies) Homicidal: Ideation (denies) Insight/Judgment improved insight, fair impulse control and improved judgement Vitals/IOs Vital Signs Date Time Temp Pulse Resp B/P (MAP) Pulse Ox O2 Delivery O2 Flow Rate FiO2 10/10/16 06:01 97.4 71 18 109/59 (76) 96 Intake and Output 10/10/16 10/10/16 10/11/16 08:00 16:00 00:00 Intake Total 480 ml 360 ml Balance 480 ml 360 ml Assessment & Plan Problem List: (1) Paranoid schizophrenia, chronic condition with acute exacerbation ICD Codes: F20.0 - Paranoid schizophrenia Status: Acute Assessment & Plan Patient at this time noted to have improved. Process, more organized, with improved judgment and improved insight. Patient continues to be adherent to current treatment responding well. Patient considering discharge plan but is aware that application for benefits still pending. Patient agrees to be transferred to a unit where there is more interactions with other patients and closer to the area where they have activities and groups. Continue current treatment, discharge planning in progress Justification for Cont. Inpt. At risk for further decompensation if at lower level of care. Request HC Surrog/Guard Advoc?: Yes (patient's mother) Rah Mistry MD Oct 10, 2016 14:59
[2016-10-10 18:00] VITALS: BP 114/64; PULSE 76; RESP 17; TEMP 97.8; O2SAT 95
[2016-10-11 05:31] VITALS: BP 113/61; PULSE 64; RESP 19; TEMP 97.9; O2SAT 95
[2016-10-11] MEDS: MIDODRINE 5 MG TAB PO SCH ×3 (06:16→17:00)
[2016-10-11] MEDS: PRAVASTATIN SOD 10 MG TAB PO SCH (09:00)
[2016-10-11] MEDS: LORazepam 1 MG TAB PO PRN (09:41)
[2016-10-11] MEDS: ACETAMINOPHEN 325 MG TAB PO PRN ×2 (09:46→21:00)
--- NOTE | 2016-10-11 14:03 | HHI.PYPN ---
Subjective Remarks Patient seen for follow-up, chart reviewed. Patient found lying in hospital bed was able to wake up and interact with interview. Patient stated that she has been feeling "good", reports having walked a little today and plans on attending groups and activities and give the unit. Patient states that she still waiting and hoping that her benefits is activated so that she may be transferred to possibly living facility. Patient states that she does have any persons that is close to her that she can rely on at this time. Patient states that she continually think about who can be her support system and will let team know. At this time she denies any perceptual disturbances or delusions. Review of Systems Except as stated in HPI: all other systems reviewed are Neg Objective Alert: Yes [place]: Person, Place, Date Mood: Calm Affect: Appropriate Memory Intact: Comment (fair) Hallucinations: Other (denied at this time) Delusions: Yes Delusion Type: Paranoid (decreased) Suicidal: Ideation (denies) Homicidal: Ideation (denies) Insight/Judgment Limited side, fair impulse control and judgment Vitals/IOs Vital Signs Date Time Temp Pulse Resp B/P (MAP) Pulse Ox O2 Delivery O2 Flow Rate FiO2 10/11/16 05:31 97.9 64 19 113/61 (78) 95 Assessment & Plan Problem List: (1) Paranoid schizophrenia, chronic condition with acute exacerbation ICD Codes: F20.0 - Paranoid schizophrenia Status: Acute Assessment & Plan Patient at this time continues to maintain stable mood with decreased paranoia and noted to be more organized and thought process. Patient tolerating medication well continue current treatment. Plan to move patient to unit 2600 and to have patient interact more with groups and activities. Discharge planning in progress Justification for Cont. Inpt. At risk for further decompensation if at lower level of care. Request HC Surrog/Guard Advoc?: Yes (patient's mother) Rah Mistry MD Oct 11, 2016 14:03
[2016-10-11 19:00] VITALS: BP 89/57; PULSE 71; RESP 18; TEMP 98; O2SAT 98
[2016-10-12 06:11] VITALS: BP 109/58; PULSE 68; RESP 18; TEMP 97.6; O2SAT 96
[2016-10-12] MEDS: MIDODRINE 5 MG TAB PO SCH ×3 (06:39→16:40)
[2016-10-12] MEDS: LORazepam 1 MG TAB PO PRN ×2 (08:13→21:09)
[2016-10-12] MEDS: ACETAMINOPHEN 325 MG TAB PO PRN ×2 (08:23→21:00)
[2016-10-12] MEDS: PRAVASTATIN SOD 10 MG TAB PO SCH (08:23)
--- NOTE | 2016-10-12 16:23 | HHI.PYPN ---
Subjective Remarks Patient seen for follow-up, chart reviewed. Patient found sitting in activities room marginally was able to participate in interview with freelance writer today. Patient states that she had been thinking about other possibilities where she can be discharged to while waiting for benefits to be approved. Patient states that she has an adopted brother named Mino larkin who resides in [facility] and also has a place near [place]. Patient states that this adopted brother was reported to her through the court and that Dr. Gandhi knows all about this. When asked which court had assigned Mino Weston to be her adopted brother patient states "the [address]". Patient stated that her mood is "okay", reports recalls feeling a bit upset this morning after being encouraged to shower but states that she complied and was feeling okay. At this time patient reports feeling "okay" denies any perceptual disturbances but continues to endorse delusions of having the adopted brother through the court system. Review of Systems Except as stated in HPI: all other systems reviewed are Neg Objective Alert: Yes [place]: Person, Place, Date Mood: Calm Affect: Appropriate Memory Intact: Comment (fair) Hallucinations: Other (denied at this time) Delusions: Yes Delusion Type: Paranoid (decreased), Other (delusions of having adoptive brother due to [address]) Suicidal: Ideation (denies) Homicidal: Ideation (denies) Insight/Judgment Poor insight, fair impulse control, limited judgment Vitals/IOs Vital Signs Date Time Temp Pulse Resp B/P (MAP) Pulse Ox O2 Delivery O2 Flow Rate FiO2 10/12/16 06:11 97.6 68 18 109/58 (75) 96 Intake and Output 10/12/16 10/12/16 10/12/16 07:59 15:59 23:59 Intake Total 480 ml Balance 480 ml Assessment & Plan Problem List: (1) Paranoid schizophrenia, chronic condition with acute exacerbation ICD Codes: F20.0 - Paranoid schizophrenia Status: Acute Assessment & Plan Patient at this time continues to be more organized in thought process but now has reemerged with delusions that she has an adopted brother named Mino Weston that was appointed to her by the [address] [facility]. Unclear whether this delusion is a fixed delusion overlapping with her psychotic disorder. We'll continue current treatment for now. Discharge planning in progress Justification for Cont. Inpt. At risk for further decompensation if at lower level of care Request HC Surrog/Guard Advoc?: Yes (patient's mother) Rah Mistry MD Oct 12, 2016 16:22
[2016-10-12 16:30] VITALS: BP 101/58; PULSE 63; RESP 17; TEMP 97.7; O2SAT 96
[2016-10-13 05:28] VITALS: BP 104/59; PULSE 63; RESP 16; TEMP 97.5; O2SAT 98
[2016-10-13] MEDS: MIDODRINE 5 MG TAB PO SCH ×3 (06:29→17:03)
[2016-10-13] MEDS: ACETAMINOPHEN 325 MG TAB PO PRN ×2 (08:27→21:08)
[2016-10-13] MEDS: PRAVASTATIN SOD 10 MG TAB PO SCH (09:00)
--- NOTE | 2016-10-13 16:28 | HHI.PYPN ---
Subjective Remarks Patient seen for follow-up, chart reviewed. Patient found lying on hospital bed , cooperative with interview. Patient states she has been feeing "ok", reports having gone to groups yesterday and trying to keep herself busy. She states that she continues to try and walk more each day. She continues to ask about disability benefits which are still pending. Patient has not brought up the "adopted brother" today. Review of Systems Except as stated in HPI: all other systems reviewed are Neg Objective Alert: Yes [place]: Person, Place, Date Mood: Calm Affect: Appropriate Memory Intact: Comment (fair) Hallucinations: Other (denied at this time) Delusions: Yes Delusion Type: Paranoid (decreased), Other (delusions of having adoptive brother due to [address]) Suicidal: Ideation (denies) Homicidal: Ideation (denies) Insight/Judgment poor insight, fair impulse control, limited judgement Vitals/IOs Vital Signs Date Time Temp Pulse Resp B/P (MAP) Pulse Ox O2 Delivery O2 Flow Rate FiO2 10/13/16 05:28 97.5 63 16 104/59 (74) 98 Intake and Output 10/13/16 10/13/16 10/14/16 08:00 16:00 00:00 Intake Total 480 ml Balance 480 ml Assessment & Plan Problem List: (1) Paranoid schizophrenia, chronic condition with acute exacerbation ICD Codes: F20.0 - Paranoid schizophrenia Status: Acute Assessment & Plan Patient at this time continues with imporoved thought process but continues with delusions of having adopted brother through the courts. This may be a fixed delusion, part of her current psychosis. Continue current reatment. Patient remains on the list for state hospitalization. Justification for Cont. Inpt. At risk for decompensation if at lower level of care Request HC Surrog/Guard Advoc?: Yes (patient's mother) Rah Mistry MD Oct 13, 2016 16:28
[2016-10-13] MEDS: LORazepam 1 MG TAB PO PRN (21:09)
[2016-10-14 06:11] VITALS: BP 94/66; PULSE 60; RESP 16; TEMP 98.2; O2SAT 96
[2016-10-14] MEDS: MIDODRINE 5 MG TAB PO SCH ×3 (07:00→17:00)
[2016-10-14] MEDS: PRAVASTATIN SOD 10 MG TAB PO SCH (08:30)
[2016-10-14] MEDS: ACETAMINOPHEN 325 MG TAB PO PRN ×2 (08:33→21:28)
[2016-10-14] MEDS: LORazepam 1 MG TAB PO PRN ×2 (08:33→21:28)
--- NOTE | 2016-10-14 12:45 | HHI.PYPN ---
Subjective Remarks Patient seen for follow-up, chart reviewed. Patient moved over to the unit 600 which patient was pleased with. Patient was found in the dayroom during activities and was able to engage in interview today. Patient states that he was feeling "fine". Patient denies any adverse drug reactions to medications. Patient states that she is currently waiting and hoping that she gets benefits approved so she can be transferred to the living facility. Patient denies any perceptual disturbances and continues to have delusions of having had an adopted brother through [address]. Patient noted to be more reactive and engage in interview, noted to be smiling and laughing at times appropriately. Review of Systems Except as stated in HPI: all other systems reviewed are Neg Objective Alert: Yes [place]: Person, Place, Date Mood: Calm Affect: Appropriate Memory Intact: Comment (fair) Hallucinations: Other (denied at this time) Delusions: Yes Delusion Type: Paranoid (decreased), Other (delusions of having adoptive brother due to [address]) Suicidal: Ideation (denies) Homicidal: Ideation (denies) Insight/Judgment Poor insight, fair post control and judgment Vitals/IOs Vital Signs Date Time Temp Pulse Resp B/P (MAP) Pulse Ox O2 Delivery O2 Flow Rate FiO2 10/14/16 06:11 98.2 60 16 94/66 (75) 96 Assessment & Plan Problem List: (1) Paranoid schizophrenia, chronic condition with acute exacerbation ICD Codes: F20.0 - Paranoid schizophrenia Status: Acute Assessment & Plan Patient continues to have more organized thought process, no perceptual disturbances but continues with delusions of having an adopted brother for [address]. Unclear whether this delusion is fixed delusion oriented patient might be having dissociative identity although patient now recognizes her names is Mery Krause with appropriate date of and no longer stating that her last name is Trista. Continue current treatment, discharge planning in progress Justification for Cont. Inpt. At risk for further decompensation if at lower level of care. Request HC Surrog/Guard Advoc?: Yes (patient's mother) Rah Mistry MD Oct 14, 2016 12:45
[2016-10-14 18:17] VITALS: BP 165/59; PULSE 63; RESP 16; TEMP 98.3; O2SAT 90
[2016-10-15 06:16] VITALS: BP 107/57; PULSE 64; RESP 17; TEMP 97.4; O2SAT 98
[2016-10-15] MEDS: MIDODRINE 5 MG TAB PO SCH ×3 (07:00→17:00)
[2016-10-15] MEDS: PRAVASTATIN SOD 10 MG TAB PO SCH (09:00)
[2016-10-15] MEDS: ACETAMINOPHEN 325 MG TAB PO PRN ×2 (09:46→20:50)
[2016-10-15] MEDS: LORazepam 1 MG TAB PO PRN ×2 (09:51→20:50)
--- NOTE | 2016-10-15 16:14 | HHI.PYPN ---
Subjective Remarks Patient was seen and case discussed with nursing. Patient is pleasant and cooperative with exam. Continues to refuse her medical medications. Says she is showering but hygiene is poor and nursing says she is not showering. Seclusive today. Denies any psychotic symptoms. Behaving well on the unit Objective Alert: Yes [place]: Person, Place, Date Mood: Calm Affect: Restricted Memory Intact: Comment (fair) Hallucinations: Other (denied at this time) Delusions: Yes Delusion Type: Paranoid (decreased), Other (delusions of having adoptive brother due to [address]) Suicidal: Ideation (denies) Homicidal: Ideation (denies) Insight/Judgment Poor Vitals/IOs Vital Signs Date Time Temp Pulse Resp B/P (MAP) Pulse Ox O2 Delivery O2 Flow Rate FiO2 10/15/16 06:16 97.4 64 17 107/57 (74) 98 Assessment & Plan Problem List: (1) Paranoid schizophrenia, chronic condition with acute exacerbation ICD Codes: F20.0 - Paranoid schizophrenia Status: Acute Assessment & Plan Continue current treatment plan Justification for Cont. Inpt. Patient will decompensate in a less restrictive setting Request HC Surrog/Guard Advoc?: Yes (patient's mother) Enrico Garcia DO Oct 15, 2016 16:14
[2016-10-15 18:00] VITALS: BP 128/78; PULSE 72; RESP 17; TEMP 98.1; O2SAT 96
[2016-10-16 06:07] VITALS: BP 106/57; PULSE 67; RESP 18; TEMP 98.1; O2SAT 99
[2016-10-16] MEDS: MIDODRINE 5 MG TAB PO SCH ×3 (06:19→17:00)
[2016-10-16] MEDS: PRAVASTATIN SOD 10 MG TAB PO SCH (09:00)
[2016-10-16] MEDS: LORazepam 1 MG TAB PO PRN ×2 (09:38→20:52)
[2016-10-16] MEDS: ACETAMINOPHEN 325 MG TAB PO PRN ×2 (09:38→20:52)
--- NOTE | 2016-10-16 14:40 | HHI.PYPN ---
Subjective Remarks Patient was seen and case discussed with nursing. Patient is interviewed in bed today. She says she is more social and out of the room. She did take a shower today. Continues to refuse her medical medications. Mood today is "fine." Insight remains poor. Eating and sleeping well. Continues to deny psychotic symptoms Objective Alert: Yes [place]: Person, Place, Date Mood: Calm Affect: Restricted Memory Intact: Comment (fair) Hallucinations: Other (denied at this time) Delusions: Yes Delusion Type: Paranoid (decreased) Suicidal: Ideation (denies) Homicidal: Ideation (denies) Insight/Judgment Poor Vitals/IOs Vital Signs Date Time Temp Pulse Resp B/P (MAP) Pulse Ox O2 Delivery O2 Flow Rate FiO2 10/16/16 06:07 98.1 67 18 106/57 (73) 99 Assessment & Plan Problem List: (1) Paranoid schizophrenia, chronic condition with acute exacerbation ICD Codes: F20.0 - Paranoid schizophrenia Status: Acute Assessment & Plan Continue current treatment plan Justification for Cont. Inpt. Patient would decompensate in a less restrictive setting Request HC Surrog/Guard Advoc?: Yes (patient's mother) Enrico Garcia DO Oct 16, 2016 14:40
[2016-10-17 05:34] VITALS: BP 100/56; PULSE 68; RESP 18; TEMP 98.3; O2SAT 97
[2016-10-17] MEDS: PRAVASTATIN SOD 10 MG TAB PO SCH (08:41)
[2016-10-17] MEDS: MIDODRINE 5 MG TAB PO SCH ×3 (08:41→16:55)
[2016-10-17] MEDS: LORazepam 1 MG TAB PO PRN ×2 (12:22→21:10)
--- NOTE | 2016-10-17 16:47 | HHI.PYPN ---
Subjective Remarks Patient seen for follow-up, chart reviewed. Patient found lying in hospital bed , calm and cooperative interview. Patient stated that her weekend went "okay" and reports having been able to walk around the unit more and attending more groups. Patient continues to ask about her benefits application as she is looking forward to be discharged to a living facility. When asked if she still is considering a other friends or family that could be possible options for her to live with patient states that she has not out of any one else. Patient denies any depressive, manic symptoms or perceptual disturbances. Review of Systems Except as stated in HPI: all other systems reviewed are Neg Objective Alert: Yes [place]: Person, Place, Date Mood: Calm Affect: Restricted (more reactive) Memory Intact: Comment (fair) Hallucinations: Other (denied at this time) Delusions: Yes Delusion Type: Paranoid (decreased) Suicidal: Ideation (denies) Homicidal: Ideation (denies) Insight/Judgment Limited insight, fair impulse control and limited judgment Vitals/IOs Vital Signs Date Time Temp Pulse Resp B/P (MAP) Pulse Ox O2 Delivery O2 Flow Rate FiO2 10/17/16 05:34 98.3 68 18 100/56 (71) 97 Assessment & Plan Problem List: (1) Paranoid schizophrenia, chronic condition with acute exacerbation ICD Codes: F20.0 - Paranoid schizophrenia Status: Acute Assessment & Plan Patient continues to respond well to current treatment, noted to be more organized in thought process with more reactive affect. Patient continues to deny having any family or friends that are close to her. Patient may continue to have delusion of having an adopted brother reported by the court as she had endorsed last week. Patient did not mention this today but what talking about a subject patient becomes more guarded. Continue current treatment, discharge planning in progress Justification for Cont. Inpt. At risk for decompensation if it lower level of care Request HC Surrog/Guard Advoc?: Yes (patient's mother) Rah Mistry MD Oct 17, 2016 16:47
[2016-10-17] MEDS: ACETAMINOPHEN 325 MG TAB PO PRN (21:09)
[2016-10-18 06:13] VITALS: BP 112/56; PULSE 68; RESP 16; TEMP 97.3; O2SAT 0
[2016-10-18] MEDS: MIDODRINE 5 MG TAB PO SCH ×4 (06:34→17:00)
[2016-10-18] MEDS: PRAVASTATIN SOD 10 MG TAB PO SCH (09:00)
[2016-10-18] MEDS: LORazepam 1 MG TAB PO PRN (09:22)
[2016-10-18] MEDS: ACETAMINOPHEN 325 MG TAB PO PRN (09:22)
--- NOTE | 2016-10-18 14:38 | HHI.PYPN ---
Subjective Remarks Patient seen for follow-up, chart reviewed. Patient found lying in hospital bed was able to wake up and engage in interview today. Patient states she had been going outside and participating in groups and activities and looking forward to participate in activities today as well. Patient states she has been trying to be maintained more ambulatory while on the unit. Discussion today about possibility of having her transferred to the [facility] as it is a long-term care facility in the event that a bed becomes available before application for benefits was approved as she had had hopes of transitioning to an adult living facility. Patient was noted to be somewhat upset but understood that the hospital is only in acute care facility in the long-term care facility. Review of Systems Except as stated in HPI: all other systems reviewed are Neg Objective Alert: Yes [place]: Person, Place, Date Mood: Calm Affect: Restricted (more reactive) Memory Intact: Comment (fair) Hallucinations: Other (denied at this time) Delusions: Yes Delusion Type: Paranoid (decreased) Suicidal: Ideation (denies) Homicidal: Ideation (denies) Insight/Judgment Limited insight, impulse control and judgment Vitals/IOs Vital Signs Date Time Temp Pulse Resp B/P (MAP) Pulse Ox O2 Delivery O2 Flow Rate FiO2 10/18/16 06:13 97.3 68 16 112/56 (74) 0 Intake and Output 10/18/16 10/18/16 10/18/16 07:59 15:59 23:59 Intake Total 360 ml 240 ml Balance 360 ml 240 ml Assessment & Plan Problem List: (1) Paranoid schizophrenia, chronic condition with acute exacerbation ICD Codes: F20.0 - Paranoid schizophrenia Status: Acute Assessment & Plan Patient this time continues to respond well with current treatment and will likely require continued support and supervision to avoid decompensation and self-neglect. Continue current treatment, we'll request physical therapy to continue working with patient. Discharge planning in progress Justification for Cont. Inpt. At risk for decompensation if it lower level of care Request HC Surrog/Guard Advoc?: Yes (patient's mother) Rah Mistry MD Oct 18, 2016 14:37
[2016-10-18 18:37] VITALS: BP 128/69; PULSE 58; RESP 16; TEMP 98; O2SAT 95
[2016-10-19 06:00] VITALS: BP 108/71; PULSE 76; RESP 18; TEMP 98.5; O2SAT 95
[2016-10-19] MEDS: MIDODRINE 5 MG TAB PO SCH ×3 (06:41→17:54)
[2016-10-19] MEDS: ACETAMINOPHEN 325 MG TAB PO PRN ×2 (08:36→18:12)
[2016-10-19] MEDS: LORazepam 1 MG TAB PO PRN (08:37)
[2016-10-19] MEDS: PRAVASTATIN SOD 10 MG TAB PO SCH (08:39)
--- NOTE | 2016-10-19 16:00 | HHI.PYPN ---
Subjective Remarks Patient seen for follow-up, chart reviewed. Patient found lying in hospital bed , cooperative interview. Patient states that she is feeling "anxious" after having had a discussion yesterday about the possibility of her having to go to state hospitalization. Patient states that she would much rather be homeless than go to state hospitalization. Patient states she is hopeful that she will have benefits approved to be able to go to the assisted living facility. Patient continues to have delusions of having had an adopted brother by the name of Mino Weston appointed to her by the states agreement court. She continues to state that she will open an orphanage in [place] when asked if she could recall her childhood during that time or where in [place] she grew up patient states that she does not want to continue to talk about it. Review of Systems Except as stated in HPI: all other systems reviewed are Neg Objective Alert: Yes [place]: Person, Place, Date Mood: Calm Affect: Restricted (more reactive) Memory Intact: Comment (fair) Hallucinations: Other (denied at this time) Delusions: Yes Delusion Type: Paranoid (decreased) Suicidal: Ideation (denies) Homicidal: Ideation (denies) Insight/Judgment Poor insight, fair impulse control, limited judgment Vitals/IOs Vital Signs Date Time Temp Pulse Resp B/P (MAP) Pulse Ox O2 Delivery O2 Flow Rate FiO2 10/19/16 06:00 98.5 76 18 108/71 (83) 95 Assessment & Plan Problem List: (1) Paranoid schizophrenia, chronic condition with acute exacerbation ICD Codes: F20.0 - Paranoid schizophrenia Status: Acute Assessment & Plan Patient at this time continues to be noted to have organized. Process but continues with delusions that she has been appointed a new adoptive brother along with having grown up in the orphanage in [place]. Patient continued to be very guarded when asked to describe or elaborate on this delusion. It is possible that this patient has a fixed delusion concerning this. We'll continue current treatment for now. Discharge planning in progress Justification for Cont. Inpt. At risk for decompensation if it lower level of care Request HC Surrog/Guard Advoc?: Yes (patient's mother) Rah Mistry MD Oct 19, 2016 16:00
[2016-10-19 18:28] VITALS: BP 94/57; PULSE 59; RESP 18; TEMP 97.9; O2SAT 97
[2016-10-19 19:39] VITALS: BP 112/71; PULSE 60
[2016-10-20] MEDS: MIDODRINE 5 MG TAB PO SCH ×3 (05:44→17:00)
[2016-10-20 06:06] VITALS: BP 109/68; PULSE 70; RESP 18; TEMP 97.9; O2SAT 96
[2016-10-20] MEDS: PRAVASTATIN SOD 10 MG TAB PO SCH (09:02)
[2016-10-20] MEDS: LORazepam 1 MG TAB PO PRN ×3 (09:08→22:30)
--- NOTE | 2016-10-20 13:50 | HHI.PYPN ---
Subjective Remarks Patient seen for follow-up, chart reviewed. Patient found lying in hospital bed , cooperative interview. Although to be slightly anxious. As why she was looking anxious patient states that she is worried of having to be transferred to an inpatient state hospital. Patient continued to be hopeful that she will be transferred to an adult living facility once her benefits are improved. Patient said her mood has been "alright", reports attending groups and activities on the unit. Patient continues to endorse delusions that she was adopted, lives in an orphanage in [place] and has an adopted brother reported to her by the state [address]. Review of Systems Except as stated in HPI: all other systems reviewed are Neg Objective Alert: Yes [place]: Person, Place, Date Mood: Calm Affect: Restricted (more reactive) Memory Intact: Comment (fair) Hallucinations: Other (denied at this time) Delusions: Yes Delusion Type: Paranoid (decreased) Suicidal: Ideation (denies) Homicidal: Ideation (denies) Insight/Judgment Poor insight, fair impulse control, and limited judgment Vitals/IOs Vital Signs Date Time Temp Pulse Resp B/P (MAP) Pulse Ox O2 Delivery O2 Flow Rate FiO2 10/20/16 06:06 97.9 70 18 109/68 (82) 96 Assessment & Plan Problem List: (1) Paranoid schizophrenia, chronic condition with acute exacerbation ICD Codes: F20.0 - Paranoid schizophrenia Status: Acute Assessment & Plan Estimated LOS: day patient at this time continues to have delusion of being adopted and living in an orphanage in [place]. Patient noted to be more organized thought process is able to engage appropriately during interview. Patient to continue current treatment. Patient is pending approval of benefits with possibly be transferred to an adult living facility. Patient continues to be on a wait list for transfer to state hospitalization. Discharge planning in progress Justification for Cont. Inpt. At risk for decompensation if it lower level of care Request HC Surrog/Guard Advoc?: Yes (patient's mother) Rah Mistry MD Oct 20, 2016 13:50
[2016-10-20 18:32] VITALS: BP 134/79; PULSE 74; RESP 17; TEMP 99; O2SAT 100
[2016-10-20] MEDS: ACETAMINOPHEN 325 MG TAB PO PRN (22:30)
[2016-10-21 05:41] VITALS: BP 111/70; PULSE 69; RESP 18; TEMP 97.8; O2SAT 96
[2016-10-21] MEDS: LORazepam 1 MG TAB PO PRN ×2 (06:44→13:31)
[2016-10-21] MEDS: ACETAMINOPHEN 325 MG TAB PO PRN ×4 (06:44→23:21)
[2016-10-21] MEDS: MIDODRINE 5 MG TAB PO SCH ×3 (06:47→17:00)
[2016-10-21] MEDS: PRAVASTATIN SOD 10 MG TAB PO SCH (09:00)
--- NOTE | 2016-10-21 10:28 | HHI.PYPN ---
Subjective Remarks patient seen and examined with nurse in coverage for Dr. Mistry. Received signout from Dr. Mistry prior to his departure. Chart reviewed. Case discussed with nursing staff. No behavioral issues overnight. On my examination today, the patient is polite but guarded. She tells me that she is waiting on funding to go to [facility]. She denies any SI, HI or AVH. She does complain of some mild stiffness associated with medications but otherwise denies side effects. No other physical complaints. Review of Systems ROS Limitations: Poor Historian Except as stated in HPI: all other systems reviewed are Neg Objective Alert: Yes [place]: Person, Place, Date Mood: Calm Affect: Blunted Memory Intact: Comment (not formally assessed) Hallucinations: Other (denies AVH) Delusions: Yes Delusion Type: Paranoid (guarded) Suicidal: Ideation (denies SI) Homicidal: Ideation (denies HI) Insight/Judgment Poor Remarks Perhaps some very mildly increased tone in the upper extremity. No cogwheeling. Mild hypomimia. No other motoric abnormalities noted. Labs Labs reviewed. No recent laboratories on file. Vitals/IOs Vital Signs Date Time Temp Pulse Resp B/P (MAP) Pulse Ox O2 Delivery O2 Flow Rate FiO2 10/21/16 10:02 14 10/21/16 05:41 97.8 69 111/70 (84) 96 Assessment & Plan Problem List: (1) Paranoid schizophrenia, chronic condition with acute exacerbation ICD Codes: F20.0 - Paranoid schizophrenia Status: Acute Assessment & Plan Continue current psychotropics as ordered. I have offered the patient a scheduled anticholinergic for the management of possible mild EPS, but she declines and says that she finds the Ativan p.r.n. efficacious for this problem and wishes to continue with it. Check an updated set of basic laboratories. Continue other medications and care as ordered. Justification for Cont. Inpt. Risk for decompensation in less restrictive environment Discharge Planning Per Dr. Mitsry Request HC Surrog/Guard Advoc?: Yes (patient's mother) Kosta Friend MD Oct 21, 2016 10:28
[2016-10-21] MEDS: LORazepam 2 MG TAB PO PRN (23:21)
[2016-10-22] MEDS: MIDODRINE 5 MG TAB PO SCH ×3 (06:31→17:00)
[2016-10-22] MEDS: ACETAMINOPHEN 325 MG TAB PO PRN ×2 (06:32→13:25)
[2016-10-22] MEDS: LORazepam 2 MG TAB PO PRN ×2 (06:32→13:24)
[2016-10-22 06:37] VITALS: BP 118/70; PULSE 71; RESP 18; TEMP 98.2; O2SAT 97
[2016-10-22] MEDS: PRAVASTATIN SOD 10 MG TAB PO SCH (09:00)
--- NOTE | 2016-10-22 13:02 | HHI.PYPN ---
Subjective Remarks Patient seen, case discussed with nurse and labs reviewed. Remains paranoid but is compliant with medicine and staff. Review of Systems Except as stated in HPI: all other systems reviewed are Neg Objective Alert: Yes [place]: Person, Place, Date Mood: Calm Affect: Blunted Memory Intact: Comment (not formally assessed) Hallucinations: Other (denies AVH) Delusions: Yes Delusion Type: Paranoid (guarded) Suicidal: Ideation (denies SI) Homicidal: Ideation (denies HI) Insight/Judgment Impaired Vitals/IOs Vital Signs Date Time Temp Pulse Resp B/P (MAP) Pulse Ox O2 Delivery O2 Flow Rate FiO2 10/22/16 06:37 98.2 71 18 118/70 (86) 97 Assessment & Plan Problem List: (1) Paranoid schizophrenia, chronic condition with acute exacerbation ICD Codes: F20.0 - Paranoid schizophrenia Status: Acute Assessment & Plan Estimated LOS: days continue current antipsychotic regimen. Justification for Cont. Inpt. Paranoid and unable to care for self. Request HC Surrog/Guard Advoc?: Yes (patient's mother) Jerson Naranjo MD Oct 22, 2016 13:02
[2016-10-22 18:02] VITALS: BP 135/81; PULSE 71; RESP 18; TEMP 98.1; O2SAT 96
[2016-10-23] MEDS: MIDODRINE 5 MG TAB PO SCH ×3 (06:44→17:00)
[2016-10-23] MEDS: ACETAMINOPHEN 325 MG TAB PO PRN ×3 (06:50→21:40)
[2016-10-23] MEDS: LORazepam 1 MG TAB PO PRN ×2 (06:50→21:39)
[2016-10-23 07:10] VITALS: BP 121/66; PULSE 74; RESP 17; TEMP 98.2; O2SAT 95
[2016-10-23] MEDS: PRAVASTATIN SOD 10 MG TAB PO SCH (09:00)
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
[2016-10-23] MEDS: LORazepam 2 MG TAB PO PRN (13:05)
[2016-10-23 14:15] LABS: BASOPHIL % 0.4 % (0.0-2.0); EOSINOPHIL # 0.3 TH/MM3 (0-0.4); HEMATOCRIT 42.1 % (35.0-46.0); HEMO FLAGS DIFF FINAL; LYMPH % 35.3 % (9.0-44.0); LYMPHOCYTE # 3.2 TH/MM3 (1.0-4.8); MEAN CELL VOLUME 85.5 FL (80.0-100.0); MEAN CORPUSCULAR HEMOGLOBIN 28.4 PG (27.0-34.0); MEAN CORPUSCULAR HGB CONC 33.2 % (32.0-36.0); MONO % 5.7 % (0.0-8.0); NEUT % 55.6 % (16.0-70.0); PLATELET COUNT 273 TH/MM3 (150-450); RED BLOOD COUNT 4.92 MIL/MM3 (4.00-5.30); WHITE BLOOD COUNT 9.1 TH/MM3 (4.0-11.0)
[2016-10-23 14:34] LABS: ANION GAP 9 MEQ/L (5-15); AST (GOT) 10 U/L (15-37); BICARBONATE 25.1 MEQ/L (21.0-32.0); BLOOD UREA NITROGEN 15 MG/DL (7-18); CHLORIDE 104 MEQ/L (98-107); GLOMERULAR FILTRATION RATE 79 ML/MIN (>89); POTASSIUM 4.2 MEQ/L (3.5-5.1); SODIUM (NA) 138 MEQ/L (136-145)
[2016-10-23 14:35] LABS: ALT (GPT) 14 U/L (10-53)
[2016-10-23 14:37] LABS: ALKALINE PHOSPHATASE 66 U/L (45-117); TOTAL BILIRUBIN ADULT 0.2 MG/DL (0.2-1.0)
[2016-10-23 18:16] VITALS: BP 120/87; PULSE 69; RESP 17; TEMP 98.2; O2SAT 97
[2016-10-24] MEDS: MIDODRINE 5 MG TAB PO SCH ×3 (06:02→17:00)
[2016-10-24 06:15] VITALS: BP 107/70; PULSE 63; RESP 17; TEMP 99; O2SAT 95
[2016-10-24] MEDS: LORazepam 2 MG TAB PO PRN ×2 (08:58→17:11)
[2016-10-24] MEDS: ACETAMINOPHEN 325 MG TAB PO PRN ×3 (08:58→22:20)
[2016-10-24] MEDS: PRAVASTATIN SOD 10 MG TAB PO SCH (09:00)
--- NOTE | 2016-10-24 12:29 | HHI.PYPN ---
Subjective Remarks Patient seen and examined with nurse. Chart reviewed. Case discussed with nursing staff. No behavioral issues noted. Patient continues to refuse her midodrine and statin. I discuss the risks of not taking these meds, and patient says "I'll take that risk." She is accepting her Prolixin and denies side effects from this medication. Remains a little bit watchful but no meme delusional material. No new physical complaints. Review of Systems Except as stated in HPI: all other systems reviewed are Neg Objective Alert: Yes [place]: Person, Place, Date Mood: Calm Affect: Blunted Memory Intact: Comment (not formally assessed) Hallucinations: Other (no AVH) Delusions: Yes Delusion Type: Other (somewhat guarded) Suicidal: Ideation (no SI) Homicidal: Ideation (no HI) Insight/Judgment Poor Remarks No motor abnormalities noted Labs Test 10/23/16 13:53 White Blood Count 9.1 TH/MM3 Red Blood Count 4.92 MIL/MM3 Hemoglobin 14.0 GM/DL Hematocrit 42.1 % Mean Corpuscular Volume 85.5 FL Mean Corpuscular Hemoglobin 28.4 PG Mean Corpuscular Hemoglobin Concent 33.2 % Red Cell Distribution Width 15.0 % Platelet Count 273 TH/MM3 Mean Platelet Volume 8.2 FL Neutrophils (%) (Auto) 55.6 % Lymphocytes (%) (Auto) 35.3 % Monocytes (%) (Auto) 5.7 % Eosinophils (%) (Auto) 3.0 % Basophils (%) (Auto) 0.4 % Neutrophils # (Auto) 5.0 TH/MM3 Lymphocytes # (Auto) 3.2 TH/MM3 Monocytes # (Auto) 0.5 TH/MM3 Eosinophils # (Auto) 0.3 TH/MM3 Basophils # (Auto) 0.0 TH/MM3 CBC Comment DIFF FINAL Differential Comment Blood Urea Nitrogen 15 MG/DL Creatinine 0.77 MG/DL Random Glucose 93 MG/DL Total Protein 6.7 GM/DL Albumin 3.1 GM/DL Calcium Level 9.2 MG/DL Alkaline Phosphatase 66 U/L Aspartate Amino Transf (AST/SGOT) 10 U/L Alanine Aminotransferase (ALT/SGPT) 14 U/L Total Bilirubin 0.2 MG/DL Sodium Level 138 MEQ/L Potassium Level 4.2 MEQ/L Chloride Level 104 MEQ/L Carbon Dioxide Level 25.1 MEQ/L Anion Gap 9 MEQ/L Estimat Glomerular Filtration Rate 79 ML/MIN Labs reviewed. CBC unremarkable. CMP reveals mildly decreased GFR. Vitals/IOs Vital Signs Date Time Temp Pulse Resp B/P (MAP) Pulse Ox O2 Delivery O2 Flow Rate FiO2 10/24/16 06:15 99.0 63 17 107/70 (82) 95 Intake and Output 10/24/16 10/24/16 10/25/16 08:00 16:00 00:00 Intake Total 480 ml 0 ml Balance 480 ml 0 ml Assessment & Plan Problem List: (1) Paranoid schizophrenia, chronic condition with acute exacerbation ICD Codes: F20.0 - Paranoid schizophrenia Status: Acute Assessment & Plan Continue current psychotropics as ordered. Encourage fluids. Recheck BMP Monday. Continue other medications and care as ordered. Justification for Cont. Inpt. Risk for decompensation Discharge Planning [facility] placement versus state psychiatric hospitalization. Request HC Surrog/Guard Advoc?: Yes Kosta Friend MD Oct 24, 2016 12:29
[2016-10-24 18:23] VITALS: BP 139/67; PULSE 70; RESP 17; TEMP 97.7; O2SAT 98
[2016-10-25] MEDS: LORazepam 1 MG TAB PO PRN ×3 (03:12→20:57)
[2016-10-25] MEDS: MIDODRINE 5 MG TAB PO SCH ×3 (05:32→17:00)
[2016-10-25 06:04] VITALS: BP 107/56; PULSE 70; RESP 17; TEMP 97.9; O2SAT 96
[2016-10-25] MEDS: ACETAMINOPHEN 325 MG TAB PO PRN ×2 (08:32→20:57)
[2016-10-25] MEDS: PRAVASTATIN SOD 10 MG TAB PO SCH (08:34)
--- NOTE | 2016-10-25 08:52 | HHI.PYPN ---
Subjective Remarks Patient seen and examined with nurse. Chart reviewed. Case discussed in treatment team. On my exam, patient remains pleasant if somewhat guarded and aloof. She does ask that Dr. Nelson from neurology come to visit with her, not because she has a neurological complaint but rather because she believes him to be a general practitioner assigned to her by the court. I see from Dr. Mistry' s notes that she has verbalized some similar material in the past. I did explain to patient that it is not appropriate to seek neurological consultation when there are no active neurological issues to be addressed. Denies SI/HI/ AVH. No side effects from medications. No new physical complaints. Review of Systems ROS Limitations: Poor Historian Except as stated in HPI: all other systems reviewed are Neg Objective Alert: Yes [place]: Person, Place, Date Mood: Calm Affect: Blunted Memory Intact: Comment (not formally assessed) Hallucinations: Other (None) Delusions: Yes Delusion Type: Other (remains a little guarded) Suicidal: Ideation (no SI) Homicidal: Ideation (no HI) Insight/Judgment poor Remarks No motor abnormalities noted. Labs Labs reviewed. Vitals/IOs Vital Signs Date Time Temp Pulse Resp B/P (MAP) Pulse Ox O2 Delivery O2 Flow Rate FiO2 10/25/16 06:04 97.9 70 17 107/56 (73) 96 Assessment & Plan Problem List: (1) Paranoid schizophrenia, chronic condition with acute exacerbation ICD Codes: F20.0 - Paranoid schizophrenia Status: Acute Assessment & Plan Continue Prolixin as ordered. Continue to monitor on inpatient unit. Continue other medications and care as ordered. Justification for Cont. Inpt. Risk for decompensation. Discharge Planning Per Dr. Mistry. Request HC Surrog/Guard Advoc?: Yes Kosta Friend MD Oct 25, 2016 08:52
[2016-10-25 18:00] VITALS: BP 101/52; PULSE 66; RESP 18; TEMP 98; O2SAT 93
[2016-10-26 06:02] VITALS: BP 111/51; PULSE 72; RESP 18; TEMP 97.5; O2SAT 97
[2016-10-26] MEDS: MIDODRINE 5 MG TAB PO SCH ×3 (06:07→17:25)
[2016-10-26] MEDS: PRAVASTATIN SOD 10 MG TAB PO SCH (08:45)
[2016-10-26] MEDS: ACETAMINOPHEN 325 MG TAB PO PRN ×2 (08:47→21:08)
--- NOTE | 2016-10-26 10:11 | HHI.PYPN ---
Subjective Remarks Patient seen and examined with nurse. Chart reviewed. Case discussed with nursing staff. On my examination today, patient continues to request to see Dr. Nelson, whom she insists is her PCP appointed by the court. She has no physical or neurological complaint, and simply wishes to speak with him. Remains somewhat guarded. No side effects from meds besides some reported anxiety from Prolixin; I have offered to adjust meds, but patient is resistant to med changes generally. No physical complaints. Review of Systems ROS Limitations: Poor Historian Except as stated in HPI: all other systems reviewed are Neg Objective Alert: Yes [place]: Person, Place, Date Mood: Calm Affect: Blunted (remains blunted) Memory Intact: Comment (Not assessed) Hallucinations: Other (No AVH) Delusions: Yes Delusion Type: Other (remains a little guarded) Suicidal: Ideation (no SI) Homicidal: Ideation (no HI) Insight/Judgment Poor Remarks No motoric abnormalities noted Labs labs reviewed Vitals/IOs Vital Signs Date Time Temp Pulse Resp B/P (MAP) Pulse Ox O2 Delivery O2 Flow Rate FiO2 10/26/16 06:02 97.5 72 18 111/51 (71) 97 Assessment & Plan Problem List: (1) Paranoid schizophrenia, chronic condition with acute exacerbation ICD Codes: F20.0 - Paranoid schizophrenia Status: Acute Assessment & Plan Continue current psychotropics as ordered. Continue to monitor on inpatient unit. Continue other medications and care as ordered. Justification for Cont. Inpt. Risk for decompensation in less restrictive environment Discharge Planning Per Dr. Mistry Request HC Surrog/Guard Advoc?: Yes Kosta Friend MD Oct 26, 2016 10:11
[2016-10-26] MEDS: LORazepam 1 MG TAB PO PRN ×2 (12:09→21:08)
[2016-10-26 18:00] VITALS: BP 112/70; PULSE 66; RESP 18; TEMP 98.7; O2SAT 95
[2016-10-27 05:38] VITALS: BP 100/50; PULSE 69; RESP 17; TEMP 98.2; O2SAT 95
[2016-10-27] MEDS: MIDODRINE 5 MG TAB PO SCH ×3 (06:10→17:00)
[2016-10-27] MEDS: ACETAMINOPHEN 325 MG TAB PO PRN ×2 (08:44→21:41)
[2016-10-27] MEDS: LORazepam 1 MG TAB PO PRN ×2 (08:44→21:40)
[2016-10-27] MEDS: PRAVASTATIN SOD 10 MG TAB PO SCH (09:00)
--- NOTE | 2016-10-27 11:25 | HHI.PYPN ---
Subjective Remarks Patient seen and examined with nurse. Chart reviewed. Case discussed with nursing staff. On my examination today, patient remains a little bit guarded. Slept somewhat poorly overnight but declines hypnotic. Resistant to medication changes generally. No side effects from medications that she is accepting. No physical complaints. Review of Systems ROS Limitations: Poor Historian Except as stated in HPI: all other systems reviewed are Neg Objective Alert: Yes [place]: Person, Place, Date Mood: Calm Affect: Blunted Memory Intact: Comment (not formally assessed) Hallucinations: Other (none) Delusions: Yes Delusion Type: Other (mildly guarded) Suicidal: Ideation (no SI) Homicidal: Ideation (no HI) Insight/Judgment Poor Remarks No motor abnormalities noted Labs labs reviewed. I believe patient refused BMP ordered for yesterday as this was still listed as "in process" Vitals/IOs Vital Signs Date Time Temp Pulse Resp B/P (MAP) Pulse Ox O2 Delivery O2 Flow Rate FiO2 10/27/16 05:38 98.2 69 17 100/50 (67) 95 Intake and Output 10/27/16 10/27/16 10/28/16 08:00 16:00 00:00 Intake Total 480 ml Balance 480 ml Assessment & Plan Problem List: (1) Paranoid schizophrenia, chronic condition with acute exacerbation ICD Codes: F20.0 - Paranoid schizophrenia Status: Acute Assessment & Plan Continue current psychotropics as ordered. Continue to monitor on the inpatient unit. Continue other medications and care as ordered. Justification for Cont. Inpt. Risk for decompensation Discharge Planning Per Dr. Mistry Request HC Surrog/Guard Advoc?: Yes Kosta Friend MD Oct 27, 2016 11:25
[2016-10-27 15:28] LABS: BICARBONATE 26.3 MEQ/L (21.0-32.0)
[2016-10-27 17:02] VITALS: BP 113/64; PULSE 69; RESP 18; TEMP 98.4; O2SAT 95
[2016-10-28 06:07] VITALS: BP 107/56; PULSE 69; RESP 18; TEMP 97.6; O2SAT 95
[2016-10-28] MEDS: MIDODRINE 5 MG TAB PO SCH ×3 (07:00→12:00)
[2016-10-28] MEDS: ACETAMINOPHEN 325 MG TAB PO PRN ×2 (08:45→20:38)
[2016-10-28] MEDS: LORazepam 1 MG TAB PO PRN ×2 (08:45→20:38)
[2016-10-28] MEDS: PRAVASTATIN SOD 10 MG TAB PO SCH ×2 (08:46→08:49)
--- NOTE | 2016-10-28 11:59 | HHI.PYPN ---
Subjective Remarks Patient seen and examined with counselor and nurse. Chart reviewed. Case discussed with nursing staff, who notes patient spends a lot of time in bed and may be somewhat sedated because of the regular Ativan PRN doses she is receiving at her request. On my exam, patient's presentation is essentially unchanged today. She is polite but guarded. She does seem a little tired. When asked about her spending a lot of time in bed, she becomes somewhat defensive. She now says that she is allergic to red dye and does not want to receive any meds that contain this agent. No new side effects from medications. No new physical complaints. Review of Systems ROS Limitations: Poor Historian Except as stated in HPI: all other systems reviewed are Neg Objective Alert: Yes [place]: Person, Place, Date Mood: Calm Affect: Blunted (remains somewhat blunted) Memory Intact: Comment (not formally assessed) Hallucinations: Other (no AVH) Delusions: Yes Delusion Type: Other (somewhat guarded) Suicidal: Ideation (no SI) Homicidal: Ideation (no HI) Insight/Judgment Poor Remarks No motoric abnormalities appreciated Labs Test 10/27/16 14:41 Blood Urea Nitrogen 18 MG/DL Creatinine 0.69 MG/DL Random Glucose 96 MG/DL Calcium Level 8.8 MG/DL Sodium Level 140 MEQ/L Potassium Level 4.0 MEQ/L Chloride Level 107 MEQ/L Carbon Dioxide Level 26.3 MEQ/L Anion Gap 7 MEQ/L Estimat Glomerular Filtration Rate 90 ML/MIN Labs reviewed. GFR normalized. Vitals/IOs Vital Signs Date Time Temp Pulse Resp B/P (MAP) Pulse Ox O2 Delivery O2 Flow Rate FiO2 10/28/16 06:07 97.6 69 18 107/56 (73) 95 Intake and Output 10/28/16 10/28/16 10/29/16 08:00 16:00 00:00 Intake Total 480 ml Balance 480 ml Assessment & Plan Problem List: (1) Paranoid schizophrenia, chronic condition with acute exacerbation ICD Codes: F20.0 - Paranoid schizophrenia Status: Acute Assessment & Plan Taper Ativan PRN to 0.5mg per dose. Continue Prolixin as ordered. I have listed red dye in her allergy/ADR panel. This is present in the midodrine ( which patient is refusing anyway) and her Benadryl (which patient has not used since early September), and I will hold these meds. Continue to monitor on the inpatient unit. Continue other medications and care as ordered. Justification for Cont. Inpt. Risk for decompensation in less restrictive environment. Discharge Planning Placement versus state hospitalization, per Dr. Mistry Request HC Surrog/Guard Advoc?: Yes Kosta Friend MD Oct 28, 2016 11:59
[2016-10-28 18:24] VITALS: BP 106/57; PULSE 67; RESP 18; TEMP 98.4; O2SAT 95
[2016-10-28] MEDS ORDERED: LORazepam 2 MG/ML VIAL IM PRN (20:00)
[2016-10-29 06:20] VITALS: BP 102/53; PULSE 66; RESP 17; TEMP 98.2; O2SAT 95
[2016-10-29] MEDS: PRAVASTATIN SOD 10 MG TAB PO SCH (09:00)
[2016-10-29] MEDS: ACETAMINOPHEN 325 MG TAB PO PRN ×2 (11:51→21:39)
[2016-10-29] MEDS: LORazepam 1 MG TAB PO PRN (11:51)
--- NOTE | 2016-10-29 16:32 | HHI.PYPN ---
Subjective Remarks Patient was seen and case discussed with nursing. Patient is apathetic and minimally interactive during the interview. Insight remains poor. Oh visitors or phone calls. Denies any auditory visual hallucinations. Continues to refuse her medical medications. Largely seclusive to self. Behaving well on the unit Objective Alert: Yes [place]: Person, Place, Date Mood: Calm Affect: Blunted (remains somewhat blunted) Memory Intact: Comment (not formally assessed) Hallucinations: Other (no AVH) Delusions: Yes Delusion Type: Other (somewhat guarded) Suicidal: Ideation (no SI) Homicidal: Ideation (no HI) Insight/Judgment Poor Vitals/IOs Vital Signs Date Time Temp Pulse Resp B/P (MAP) Pulse Ox O2 Delivery O2 Flow Rate FiO2 10/29/16 12:55 16 10/29/16 06:20 98.2 66 102/53 (69) 95 Assessment & Plan Problem List: (1) Paranoid schizophrenia, chronic condition with acute exacerbation ICD Codes: F20.0 - Paranoid schizophrenia Status: Acute Assessment & Plan Continue current treatment plan Justification for Cont. Inpt. Patient would decompensate in a less restrictive setting Request HC Surrog/Guard Advoc?: Yes Enrico Garcia DO Oct 29, 2016 16:32
[2016-10-29 18:00] VITALS: BP 131/87; PULSE 67; RESP 18; TEMP 97.4; O2SAT 96
[2016-10-30 05:35] VITALS: BP 109/54; PULSE 77; RESP 18; TEMP 98.3; O2SAT 96
[2016-10-30] MEDS: ACETAMINOPHEN 325 MG TAB PO PRN ×3 (08:57→20:44)
[2016-10-30] MEDS: PRAVASTATIN SOD 10 MG TAB PO SCH (08:59)
[2016-10-30] MEDS: LORazepam 1 MG TAB PO PRN (11:29)
--- NOTE | 2016-10-30 16:42 | HHI.PYPN ---
Subjective Remarks Patient was seen and case discussed with nursing. Patient is seeking Ativan and is claiming to have panic attacks. During this interview she is not anxious. Psychoeducation was done and she is open to hydroxyzine for breakthrough anxiety. Continues to behave well on the unit. Insight continues to be poor. She did take a shower today. No outbursts Objective Alert: Yes [place]: Person, Place, Date Mood: Calm Affect: Restricted Memory Intact: Comment (not formally assessed) Hallucinations: Other (no AVH) Delusions: Yes Delusion Type: Other (somewhat guarded) Suicidal: Ideation (no SI) Homicidal: Ideation (no HI) Insight/Judgment Poor Vitals/IOs Vital Signs Date Time Temp Pulse Resp B/P (MAP) Pulse Ox O2 Delivery O2 Flow Rate FiO2 10/30/16 10:00 16 10/30/16 05:35 98.3 77 109/54 (72) 96 Assessment & Plan Problem List: (1) Paranoid schizophrenia, chronic condition with acute exacerbation ICD Codes: F20.0 - Paranoid schizophrenia Status: Acute Assessment & Plan Continue current treatment plan Justification for Cont. Inpt. Patient would decompensate in a less restrictive setting Request HC Surrog/Guard Advoc?: Yes Enrico Garcia DO Oct 30, 2016 16:42
[2016-10-31 05:30] VITALS: BP 98/62; PULSE 71; RESP 18; TEMP 97.9; O2SAT 95
[2016-10-31] MEDS: PRAVASTATIN SOD 10 MG TAB PO SCH ×2 (08:25→08:28)
--- NOTE | 2016-10-31 12:11 | HHI.PYPN ---
Subjective Remarks Patient seen and examined with nurse and counselor. Chart reviewed. Case discussed with nursing staff. No behavioral issues overnight. On my examination today, the patient is hypoverbal a little bit guarded. She is polite but is not interested in extended interview. She complains of some anxiety but is resistant to medication changes generally. No side effects from medications. No physical complaints. Review of Systems ROS Limitations: Poor Historian Except as stated in HPI: all other systems reviewed are Neg Objective Alert: Yes [place]: Person, Place, Date Mood: Calm Affect: Blunted (tending towards flat) Memory Intact: Comment (not assessed) Hallucinations: Other (no AVH) Delusions: Yes Delusion Type: Other (remains a little guarded) Suicidal: Ideation (no SI) Homicidal: Ideation (no HI) Insight/Judgment Poor Remarks No motor abnormalities noted Labs Labs reviewed Vitals/IOs Vital Signs Date Time Temp Pulse Resp B/P (MAP) Pulse Ox O2 Delivery O2 Flow Rate FiO2 10/31/16 05:30 97.9 71 18 98/62 (74) 95 Assessment & Plan Problem List: (1) Paranoid schizophrenia, chronic condition with acute exacerbation ICD Codes: F20.0 - Paranoid schizophrenia Status: Acute Assessment & Plan Continue current psychotropics as ordered. Continue to monitor on the inpatient unit. Continue other medications and care as ordered. Justification for Cont. Inpt. Risk for decompensation in less restrictive environment. Discharge Planning Per Dr. Mistry. Case discussed with counselor who reports that patient is still awaiting a payer source for assisted living placement. Request HC Surrog/Guard Advoc?: Yes Kosta Friend MD Oct 31, 2016 11:44
[2016-10-31] MEDS: ACETAMINOPHEN 325 MG TAB PO PRN ×2 (14:32→21:56)
[2016-10-31 17:55] VITALS: BP 110/74; PULSE 80; RESP 18; TEMP 98.4; O2SAT 99
[2016-10-31] MEDS: LORazepam 1 MG TAB PO PRN (21:44)
[2016-11-01 06:24] VITALS: BP 116/64; PULSE 66; RESP 17; TEMP 98.4; O2SAT 97
[2016-11-01] MEDS: PRAVASTATIN SOD 10 MG TAB PO SCH (09:00)
[2016-11-01] MEDS: ACETAMINOPHEN 325 MG TAB PO PRN ×2 (09:27→22:02)
[2016-11-01 17:39] VITALS: BP 113/60; PULSE 65; RESP 18; TEMP 98.1; O2SAT 96
--- NOTE | 2016-11-01 20:55 | HHI.PYPN ---
Subjective Remarks Patient seen for follow up; chart reviewed. Patient found in the hallway of unit requesting her nails to be trimmed. Patient states that she took a shower yesterday but agreed to take another shower today. Patient having been feeling "ok", denied any perceptual disturbances, attending some groups and continues to be hopeful that she have financial assistance approved soon. Review of Systems Except as stated in HPI: all other systems reviewed are Neg Objective Alert: Yes [place]: Person, Place, Date Mood: Calm Affect: Restricted (and guarded), Blunted Memory Intact: Comment (not assessed) Hallucinations: Other (no AVH) Delusions: Yes Delusion Type: Other (delusion of being adopted in [place] still remain) Suicidal: Ideation (no SI) Homicidal: Ideation (no HI) Insight/Judgment poor insight, fair impulse control, limited judgement Vitals/IOs Vital Signs Date Time Temp Pulse Resp B/P (MAP) Pulse Ox O2 Delivery O2 Flow Rate FiO2 11/01/16 17:39 98.1 65 18 113/60 (26) 96 Assessment & Plan Problem List: (1) Paranoid schizophrenia, chronic condition with acute exacerbation ICD Codes: F20.0 - Paranoid schizophrenia Status: Acute Assessment & Plan Patient continues to adhere to psychotropic medications but refuses all else. Patient participating in some groups and maintaining minimal hygiene (showering every 1-2 days). Continue current treatment. Patient to be discharged to [facility] if financial assistance is approved. Justification for Cont. Inpt. At risk for further decompensation if at lower level of care. Request HC Surrog/Guard Advoc?: Yes Rah Mistry MD Nov 01, 2016 20:55
[2016-11-02 06:21] VITALS: BP 108/57; PULSE 65; RESP 16; TEMP 97.7; O2SAT 96
[2016-11-02] MEDS: PRAVASTATIN SOD 10 MG TAB PO SCH (08:44)
[2016-11-02] MEDS: ACETAMINOPHEN 325 MG TAB PO PRN ×3 (09:15→22:46)
--- NOTE | 2016-11-02 17:39 | HHI.PYPN ---
Subjective Remarks Patient seen for follow-up, chart reviewed. Patient found lying on hospital bed , adrienne and cooperative with interview. Patient states that she has been feeling anxious lately and having panic attacks. When explored she attributes it to her worry about possibly going to state hospitalization. Patient continues to be hopeful of acquiring benefits to be able to be transferred to an [facility]. Patient encouraged to continue to participate in groups and activites as well as upkeep of her personal hygiene which she agreed to. Currently denies any perceptual disturbances at this time. Review of Systems Except as stated in HPI: all other systems reviewed are Neg Objective Alert: Yes [place]: Person, Place, Date Mood: Calm Affect: Restricted (and guarded), Blunted Memory Intact: Comment (not assessed) Hallucinations: Other (no AVH) Delusions: Yes Delusion Type: Other (delusion of being adopted in [place] still remain) Suicidal: Ideation (no SI) Homicidal: Ideation (no HI) Insight/Judgment Poor insight, fair impulse control, limited judgement Vitals/IOs Vital Signs Date Time Temp Pulse Resp B/P (MAP) Pulse Ox O2 Delivery O2 Flow Rate FiO2 11/02/16 06:21 97.7 65 16 108/57 (74) 96 Assessment & Plan Problem List: (1) Paranoid schizophrenia, chronic condition with acute exacerbation ICD Codes: F20.0 - Paranoid schizophrenia Status: Acute Assessment & Plan Patient noted to be more isolative in room, participating less in groups, and not keeping with with personal hygiene and likely related to her anxiety of the possibility of state hospitalization. Continue current treatment. Continue to encourage upkeep of hygiene and partiicpation in groups and activities. Discharge planning in progress. Justification for Cont. Inpt. At risk for further decompensation if at lower level of care. Request HC Surrog/Guard Advoc?: Yes Rah Mistry MD Nov 02, 2016 17:39
[2016-11-02 18:49] VITALS: BP 119/69; PULSE 63; RESP 18; TEMP 98.9; O2SAT 98
[2016-11-03 05:59] VITALS: BP 110/71; PULSE 61; RESP 17; TEMP 97.8
[2016-11-03] MEDS: PRAVASTATIN SOD 10 MG TAB PO SCH (08:57)
--- NOTE | 2016-11-03 17:58 | HHI.PYPN ---
Subjective Remarks Patient seen for follow up; chart reviewed. Patient states that she would like to adrienne her mother and requests help to make a long distance phone call. Nelson reports no physical complaints, mood has been "alright", feeling less anxious than yesterday. Patient spoke to her mother and after call noted to be tearful and states that she felt bad for treating her mother badly and "being mean to her and pushing her away". She is contemplating the possibility of living with her mother. Review of Systems Except as stated in HPI: all other systems reviewed are Neg Objective Alert: Yes [place]: Person, Place, Date Mood: Calm Affect: Restricted (and guarded), Tearful Memory Intact: Comment (not assessed) Hallucinations: Other (no AVH) Delusions: Yes Delusion Type: Other (delusion of being adopted in [place] still remain) Suicidal: Ideation (no SI) Homicidal: Ideation (no HI) Insight/Judgment Improved insight, fair impulse control , limited judgement Vitals/IOs Vital Signs Date Time Temp Pulse Resp B/P (MAP) Pulse Ox O2 Delivery O2 Flow Rate FiO2 11/03/16 05:59 97.8 61 17 110/71 (84) 11/02/16 18:49 98 Intake and Output 11/03/16 11/03/16 11/04/16 08:00 16:00 00:00 Intake Total 720 ml Balance 720 ml Assessment & Plan Problem List: (1) Paranoid schizophrenia, chronic condition with acute exacerbation ICD Codes: F20.0 - Paranoid schizophrenia Status: Acute Assessment & Plan Patient now recognizing that she has a mother and spoke to her. Will continue current treatment and explore possibilities of safe discharge to mother if possible. Patient's mother will be visiting in a couple of weeks which team will meet at that time to discuss this possibility. Justification for Cont. Inpt. At risk for further decompensation if at lower level of care. Request HC Surrog/Guard Advoc?: Yes Rah Misrty MD Nov 03, 2016 17:58
[2016-11-04 05:29] VITALS: BP 108/59; PULSE 60; RESP 16; TEMP 98
[2016-11-04] MEDS: PRAVASTATIN SOD 10 MG TAB PO SCH (08:37)
--- NOTE | 2016-11-04 16:50 | HHI.PYPN ---
Subjective Remarks Patient seen for follow up; chart reviewed. Patient found at nurses station requesting prn vistaril for anxiety. Patient states not being sure why she is anxious but believes she may feel anxious about her discharge location. She states communicating with her mother over the phone and expects her to visit in a couple of weeks. She denies any perceptual disturbances and agrees to upkeep with her hygiene. Review of Systems Except as stated in HPI: all other systems reviewed are Neg Objective Alert: Yes [place]: Person, Place, Date Mood: Calm Affect: Restricted (and guarded), Tearful Memory Intact: Comment (not assessed) Hallucinations: Other (no AVH) Delusions: No Delusion Type: Other (denies) Suicidal: Ideation (no SI) Homicidal: Ideation (no HI) Insight/Judgment improved insight, impulse control and judgment Vitals/IOs Vital Signs Date Time Temp Pulse Resp B/P (MAP) Pulse Ox O2 Delivery O2 Flow Rate FiO2 11/04/16 05:29 98.0 60 16 108/59 (75) 11/02/16 18:49 98 Assessment & Plan Problem List: (1) Paranoid schizophrenia, chronic condition with acute exacerbation ICD Codes: F20.0 - Paranoid schizophrenia Status: Acute Assessment & Plan Patient noted to be anxious about the possibility of being transferred to state hospitalization. Continue current treatment. Will communicate with patient's mother and explore possibility of patient wanting to live under her care for now. Discharge planning in progress. Justification for Cont. Inpt. At risk for further decompensation if at lower level of care. Request HC Surrog/Guard Advoc?: Yes Rah Mistry MD Nov 04, 2016 16:50
[2016-11-04 18:33] VITALS: BP 108/59; PULSE 57; RESP 16; TEMP 98.2; O2SAT 99
[2016-11-05 06:36] VITALS: BP 116/59; PULSE 64; RESP 16; TEMP 97.6; O2SAT 96
[2016-11-05] MEDS: PRAVASTATIN SOD 10 MG TAB PO SCH (09:00)
--- NOTE | 2016-11-05 14:55 | HHI.PYPN ---
Subjective Remarks Pt seen and discussed with staff. She has been seclusive to room and refusing all medications except prolixin. Hygiene and self care are poor. SHe is guarded and engages minimally. Objective Alert: Yes [place]: Person, Place, Date Mood: Calm Affect: Restricted (and guarded) Memory Intact: Comment (no gross deficits) Hallucinations: Other (no AVH) Delusions: No Delusion Type: Other (denies) Suicidal: Ideation (no SI) Homicidal: Ideation (no HI) Insight/Judgment poor Vitals/IOs Vital Signs Date Time Temp Pulse Resp B/P (MAP) Pulse Ox O2 Delivery O2 Flow Rate FiO2 11/05/16 06:36 97.6 64 16 116/59 (78 96 Assessment & Plan Problem List: (1) Paranoid schizophrenia, chronic condition with acute exacerbation ICD Codes: F20.0 - Paranoid schizophrenia Status: Acute Assessment & Plan Continue current tx plan. Estimated LOS: days Justification for Cont. Inpt. risk of decompensation Request HC Surrog/Guard Advoc?: Yes Alicia Smith MD Nov 05, 2016 14:55
[2016-11-05 18:47] VITALS: BP 104/50; PULSE 73; RESP 18; TEMP 98.2; O2SAT 96
[2016-11-06 06:33] VITALS: BP 112/66; PULSE 67; RESP 18; TEMP 98.3; O2SAT 99
[2016-11-06] MEDS: PRAVASTATIN SOD 10 MG TAB PO SCH (08:34)
--- NOTE | 2016-11-06 14:59 | HHI.PYPN ---
Subjective Remarks Pt seen and discussed with staff. She continues to isolate to her room. She is quite guarded and behaves in a paranoid fashion. Compliant with medications. NO SI/HI Objective Alert: Yes [place]: Person, Place, Date Mood: Calm Affect: Flat Memory Intact: Comment (no gross deficits) Hallucinations: Other (no AVH) Delusions: Yes Delusion Type: Paranoid Suicidal: Ideation (no SI) Homicidal: Ideation (no HI) Insight/Judgment poor Vitals/IOs Vital Signs Date Time Temp Pulse Resp B/P (MAP) Pulse Ox O2 Delivery O2 Flow Rate FiO2 11/06/16 06:33 98.3 67 18 112/66 (81) 99 Intake and Output 11/06/16 11/06/16 11/07/16 08:00 16:00 00:00 Intake Total 240 ml Balance 240 ml Assessment & Plan Problem List: (1) Paranoid schizophrenia, chronic condition with acute exacerbation ICD Codes: F20.0 - Paranoid schizophrenia Status: Acute Assessment & Plan Continue current tx plan. Estimated LOS: days Justification for Cont. Inpt. risk of decompensation Request HC Surrog/Guard Advoc?: Yes Alicia Smith MD Nov 06, 2016 14:59
[2016-11-06 18:36] VITALS: BP 122/68; PULSE 74; RESP 18; TEMP 97.3; O2SAT 96
[2016-11-07 04:54] VITALS: BP 102/55; PULSE 62; RESP 17; TEMP 98.3
[2016-11-07] MEDS: PRAVASTATIN SOD 10 MG TAB PO SCH (09:19)
--- NOTE | 2016-11-07 18:00 | HHI.PYPN ---
Subjective Remarks Patient seen for follow-up, chart reviewed. Nursing report, patient has been noted to be more isolative in her room, attending less groups and activites. Patient found lying on hospital bed, noted to be less engaged. She states that she is feeling "fine" but continues to feel anxious at the possibility of going to state hospitalization. She states that she continues to communicate with her mother and had proposed she be discharged to her mother and live in a chcf. Mother spoke with treatment team and is not amenable to having patient return to live with her at this time but continues to plan t come down and visit. Review of Systems Except as stated in HPI: all other systems reviewed are Neg Objective Alert: Yes [place]: Person, Place, Date Mood: Calm Affect: Restricted, Blunted Memory Intact: Comment (no gross deficits) Hallucinations: Other (no AVH) Delusions: Yes Delusion Type: Paranoid Suicidal: Ideation (no SI) Homicidal: Ideation (no HI) Insight/Judgment limited insight, impulse control and judgement Vitals/IOs Vital Signs Date Time Temp Pulse Resp B/P (MAP) Pulse Ox O2 Delivery O2 Flow Rate FiO2 11/07/16 04:54 98.3 62 17 102/55 (71) 11/06/16 18:36 96 Intake and Output 11/07/16 11/07/16 11/08/16 08:00 16:00 00:00 Intake Total 260 ml Balance 260 ml Assessment & Plan Problem List: (1) Paranoid schizophrenia, chronic condition with acute exacerbation ICD Codes: F20.0 - Paranoid schizophrenia Status: Acute Assessment & Plan Patient continues to be more isolative, perseverative on the possibility of being discharged to state hospital. Patient adherent to antipsychotic treatment. Patient likely reached out to mother in attempt to try and avoid being discharged to state hospital. Although patient no longer denying her mother as being related to her. Continue current treatment, discharge planning in progress. Justification for Cont. Inpt. At risk for further decompensation if at lower level of care Request HC Surrog/Guard Advoc?: Yes Rah Mistry MD Nov 07, 2016 18:00
[2016-11-08 06:00] VITALS: BP 109/53; PULSE 69; RESP 18; TEMP 98.2; O2SAT 95
[2016-11-08] MEDS: PRAVASTATIN SOD 10 MG TAB PO SCH (09:18)
--- NOTE | 2016-11-08 16:25 | HHI.PYPN ---
Subjective Remarks Patient seen for follow-up, chart reviewed. Patient found lying on hospital bed , noted to be irritable today and superficially cooperative with interview today. She states that she does the same thing everyday, referring to the same routine on the unit but was brought to her attention that she has been isolating more and attending less groups. Patient did not want to continue conversation. Review of Systems Except as stated in HPI: all other systems reviewed are Neg Objective Alert: Yes [place]: Person, Place, Date Mood: Other ("fine") Affect: Other (irritable) Memory Intact: Comment (no gross deficits) Hallucinations: Other (no AVH) Delusions: Yes Delusion Type: Paranoid Suicidal: Ideation (no SI) Homicidal: Ideation (no HI) Insight/Judgment Limited insight, impulse control and judgment Vitals/IOs Vital Signs Date Time Temp Pulse Resp B/P (MAP) Pulse Ox O2 Delivery O2 Flow Rate FiO2 11/08/16 06:00 98.2 69 18 109/53 (71) 95 Intake and Output 11/08/16 11/08/16 11/09/16 08:00 16:00 00:00 Intake Total 720 ml Balance 720 ml Assessment & Plan Problem List: (1) Paranoid schizophrenia, chronic condition with acute exacerbation ICD Codes: F20.0 - Paranoid schizophrenia Status: Acute Assessment & Plan Patient noted to be irritable and frustrated with continuing being on the unit. Patient responding well to current treatment. Application for benefits has not been approved as of yet and the possibility of sending [facility] continues to be pursued. Continue to encourage maintenance of personal hygiene and participation of groups and activities. Discharge planning in progress. Justification for Cont. Inpt. At risk for further decompensation if at lower level of care. Request HC Surrog/Guard Advoc?: Yes Rah Mistry MD Nov 08, 2016 16:25
[2016-11-08 17:18] VITALS: BP 105/57; PULSE 84; RESP 15; TEMP 98.1; O2SAT 93
[2016-11-08 17:56] VITALS: BP 112/68
[2016-11-09 06:21] VITALS: BP 114/68; PULSE 71; RESP 16; TEMP 97.7; O2SAT 94
[2016-11-09] MEDS: PRAVASTATIN SOD 10 MG TAB PO SCH (09:00)
--- NOTE | 2016-11-09 10:42 | PD.TTN ---
Patient Problems 1. Discharge planning 2. Medication compliance 3. Knowledge deficit 4. Lack of coping skills Progress Toward Goals Provider Present: Dr. Tea Mistry Provider Input: Would like for pt to get more active and out of the room with Rec Therapy Will persue state referral increased meds will look into more med adjustments Nurse(s) Input: had chest pain overnight no distress meidally allergic to red dye she states, but took meds Psych Therapist Input: vaughn start state packet and meet with FACT team will follow up on SSDI and Medicaid appl not spoken to mother, SUNNI is internet sales representative Occupational Therapist Input: not coming to groups but will work towards getting out more for fresh air Nahomy Andres [facility] Nov 09, 2016 10:42
--- NOTE | 2016-11-09 10:43 | PD.TTN ---
Patient Problems 1. Discharge planning 2. Medication compliance 3. Knowledge deficit 4. Lack of coping skills Progress Toward Goals Provider Present: Dr. Tea Mistry Provider Input: Would like for pt to get more active and out of the room with Rec Therapy Will persue state referral increased meds will look into more med adjustments Nurse(s) Input: had chest pain overnight no distress meidally allergic to red dye she states, but took meds Psych Therapist Input: vaughn start state packet and meet with FACT team will follow up on SSDI and Medicaid appl not spoken to mother, SUNNI is account retention representative Occupational Therapist Input: not coming to groups but will work towards getting out more for fresh air Nahomy Andres [facility] Nov 09, 2016 10:43
--- NOTE | 2016-11-09 10:43 | PD.TTN ---
Patient Problems 1. Discharge planning 2. Medication compliance 3. Knowledge deficit 4. Lack of coping skills Progress Toward Goals Provider Present: Dr. Tea Mistry Provider Input: Would like for pt to get more active and out of the room with Rec Therapy Will persue state referral increased meds will look into more med adjustments Nurse(s) Input: had chest pain overnight no distress meidally allergic to red dye she states, but took meds Psych Therapist Input: vaughn start state packet and meet with FACT team will follow up on SSDI and Medicaid appl not spoken to mother, SUNNI is computer help desk representative Occupational Therapist Input: not coming to groups but will work towards getting out more for fresh air Nahomy Andres [facility] Nov 09, 2016 10:43
--- NOTE | 2016-11-09 10:44 | PD.TTN ---
Patient Problems 1. Discharge planning 2. Medication compliance 3. Knowledge deficit 4. Lack of coping skills Progress Toward Goals Provider Present: Dr. Tea Mistry Provider Input: Would like for pt to get more active and out of the room with Rec Therapy Will persue state referral increased meds will look into more med adjustments Nurse(s) Input: had chest pain overnight no distress meidally allergic to red dye she states, but took meds Psych Therapist Input: vaughn start state packet and meet with FACT team will follow up on SSDI and Medicaid appl not spoken to mother, SUNNI is associate sales representative Occupational Therapist Input: not coming to groups but will work towards getting out more for fresh air Documentation Scribe: YURY Brown Date Resolved: Nov 02, 2016 Nahomy Andres Nov 09, 2016 10:44
--- NOTE | 2016-11-09 10:45 | PD.TTN ---
Patient Problems 1. Discharge planning 2. Medication compliance 3. Knowledge deficit 4. Lack of coping skills Progress Toward Goals Provider Present: Dr. Tea Mistry Provider Input: Would like for pt to get more active and out of the room with Rec Therapy Will persue state referral increased meds will look into more med adjustments Nurse(s) Input: had chest pain overnight no distress meidally allergic to red dye she states, but took meds Psych Therapist Input: vaughn start state packet and meet with FACT team will follow up on SSDI and Medicaid appl not spoken to mother, SUNNI is transportation services representative Occupational Therapist Input: not coming to groups but will work towards getting out more for fresh air Documentation Scribe: YURY Brown Date Resolved: Nov 02, 2016 Nahomy Andres Nov 09, 2016 10:45
--- NOTE | 2016-11-09 16:16 | HHI.PYPN ---
Subjective Remarks Patient seen for follow-up, chart reviewed. Patient found in the hallway of the unit and asks if she can have her fingernails clipped. Patient noted to be guarded, slightly less irritable but cooperative with interview. She states that she is feeling "fine", reports keeping up with her hygiene and attending groups. She denies any physical complaints or perceptual disturbances. she also mentions keeping in contact with her mother. Review of Systems Except as stated in HPI: all other systems reviewed are Neg Objective Alert: Yes [place]: Person, Place, Date Mood: Other ("fine") Affect: Restricted Memory Intact: Comment (no gross deficits) Hallucinations: Other (no AVH) Delusions: Yes Delusion Type: Paranoid Suicidal: Ideation (no SI) Homicidal: Ideation (no HI) Insight/Judgment Limited insight, fair impulse control, limited judgment Vitals/IOs Vital Signs Date Time Temp Pulse Resp B/P (MAP) Pulse Ox O2 Delivery O2 Flow Rate FiO2 11/09/16 06:21 97.7 71 16 114/68 (83 94 Assessment & Plan Problem List: (1) Paranoid schizophrenia, chronic condition with acute exacerbation ICD Codes: F20.0 - Paranoid schizophrenia Status: Acute Assessment & Plan Patient continues to be noted to be anxious about the possibility of going to [facility]. Due to this possibility patient is noted to be more guarded, less participatory with activities. Continue current treatment, discharge planning in progress. Justification for Cont. Inpt. At risk for further decompensation if at lower level of care. Request HC Surrog/Guard Advoc?: Yes Rah Mistry MD Nov 09, 2016 16:16
[2016-11-09 18:00] VITALS: BP 98/54; PULSE 67; RESP 18; TEMP 98.7; O2SAT 99
[2016-11-09 19:39] VITALS: BP 115/78; PULSE 66
[2016-11-10 05:47] VITALS: BP 129/72; PULSE 58; RESP 17; TEMP 98.3; O2SAT 99
[2016-11-10] MEDS: PRAVASTATIN SOD 10 MG TAB PO SCH ×2 (08:36→08:37)
--- NOTE | 2016-11-10 16:18 | HHI.PYPN ---
Subjective Remarks Patient seen for follow-up, chart reviewed. Patient found lying on hospital bed , noted to be guarded. She states that she is feeling "fine" but noted to be pensive which she responds feeling anxious about the possibility of going to state hospital. She states feeling "not motivated" due to the same; "I'm just waiting". Patient was provided with supportive psychotherapy and agreed to not be isolative, to be more active in groups and activities, and to be more hopeful. Patient states that her mother would be sending clothes for her to wear. Review of Systems Except as stated in HPI: all other systems reviewed are Neg Objective Alert: Yes [place]: Person, Place, Date Mood: Other ("fine") Affect: Other (guarded) Memory Intact: Comment (no gross deficits) Hallucinations: Other (no AVH) Delusions: Yes Delusion Type: Paranoid (less so) Suicidal: Ideation (no SI) Homicidal: Ideation (no HI) Insight/Judgment limited insight, fair impulse control and judgment Vitals/IOs Vital Signs Date Time Temp Pulse Resp B/P (MAP) Pulse Ox O2 Delivery O2 Flow Rate FiO2 11/10/16 05:47 98.3 58 17 129/72 (91) 99 Assessment & Plan Problem List: (1) Paranoid schizophrenia, chronic condition with acute exacerbation ICD Codes: F20.0 - Paranoid schizophrenia Status: Acute Assessment & Plan Patient responding well to treatment but noted to be anxious about state hospitalization. Continue current treatment. Supportive psychotherapy provided. Patient agrees to wear casual clothing. Continue to encourage maintenence of personal hygiene and participation in groups and activities. Discharge planning in progress. Justification for Cont. Inpt. At risk for further decompensation if at lower level of care. Request HC Surrog/Guard Advoc?: Yes Rah Mistry MD Nov 10, 2016 16:18
[2016-11-10 20:27] VITALS: BP 136/78; PULSE 65; RESP 17; TEMP 98.6; O2SAT 96
[2016-11-10] MEDS: LORazepam 1 MG TAB PO PRN (22:03)
[2016-11-11 05:15] VITALS: BP 116/80; PULSE 76; RESP 17; TEMP 98.1; O2SAT 97
[2016-11-11] MEDS: PRAVASTATIN SOD 10 MG TAB PO SCH (09:00)
[2016-11-11 17:07] VITALS: BP 111/74; PULSE 68; RESP 17; TEMP 98.4; O2SAT 97
--- NOTE | 2016-11-11 23:14 | HHI.PYPN ---
Subjective Remarks Patient seen for follow up; chart reviewed. Patient found walking on the unit, states feeling "ok" and reports having spoken to her mother and is trying to keep in contact with her. She states going to groups and trying to maintain good hygiene. Patient continues to hope to have her benefits approved as she would like to go to an [facility] not [facility]. Denies SI, HI, AVH. Review of Systems Except as stated in HPI: all other systems reviewed are Neg Objective Alert: Yes [place]: Person, Place, Date Mood: Other ("fine") Affect: Other (guarded) Memory Intact: Comment (no gross deficits) Hallucinations: Other (no AVH) Delusions: Yes Delusion Type: Paranoid (less so) Suicidal: Ideation (no SI) Homicidal: Ideation (no HI) Insight/Judgment limited insight, fair impulse control and judgment Vitals/IOs Vital Signs Date Time Temp Pulse Resp B/P (MAP) Pulse Ox O2 Delivery O2 Flow Rate FiO2 11/11/16 17:07 98.4 68 17 111/74 (86) 97 Assessment & Plan Problem List: (1) Paranoid schizophrenia, chronic condition with acute exacerbation ICD Codes: F20.0 - Paranoid schizophrenia Status: Acute Assessment & Plan Patient with no behavioral dyscontrol, continues to respond well to treatment, now more communicative with her mother. Continue current treatment; discharge planning in progress. Justification for Cont. Inpt. At risk for further decompensation if at lower level of care. Request HC Surrog/Guard Advoc?: Yes Rah Mistry MD Nov 11, 2016 23:14
[2016-11-12 06:08] VITALS: BP 115/55; PULSE 63; RESP 18; TEMP 97.8; O2SAT 96
[2016-11-12] MEDS: PRAVASTATIN SOD 10 MG TAB PO SCH (09:00)
--- NOTE | 2016-11-12 17:32 | HHI.PYPN ---
Subjective Remarks Patient was seen and case discussed with nursing. Patient remains guarded and hyperverbal. Per nursing spends all day in bed and only gets up for meals and Vistaril. Mood is "okay." Eating and sleeping well per patient. When asked what she thinks about in her spare time she says "nothing/" Objective Alert: Yes [place]: Person, Place, Date Mood: Other ("fine") Affect: Blunted, Other (guarded) Memory Intact: Comment (no gross deficits) Hallucinations: Other (no AVH) Delusions: Yes Delusion Type: Paranoid (present) Suicidal: Ideation (no SI) Homicidal: Ideation (no HI) Insight/Judgment Poor Vitals/IOs Vital Signs Date Time Temp Pulse Resp B/P (MAP) Pulse Ox O2 Delivery O2 Flow Rate FiO2 11/12/16 06:08 97.8 63 18 115/55 (75) 96 Assessment & Plan Problem List: (1) Paranoid schizophrenia, chronic condition with acute exacerbation ICD Codes: F20.0 - Paranoid schizophrenia Status: Acute Assessment & Plan Continue current treatment plan Justification for Cont. Inpt. Patient would decompensate in a less restrictive setting Request HC Surrog/Guard Advoc?: Yes Enrico Garcia DO Nov 12, 2016 17:32
[2016-11-12 21:00] VITALS: BP 145/66; PULSE 71; RESP 20; O2SAT 98
[2016-11-13 04:43] VITALS: BP 126/73; PULSE 56; RESP 18; TEMP 97.8; O2SAT 97
[2016-11-13] MEDS: PRAVASTATIN SOD 10 MG TAB PO SCH (09:00)
--- NOTE | 2016-11-13 11:59 | HHI.PYPN ---
Subjective Remarks Patient was seen and case discussed with nursing. Patient is "the same, fine." Remains seclusive to room. Remains guarded. Behaving well on the unit, no outbursts,tolerating medications well Objective Alert: Yes [place]: Person, Place, Date Mood: Other ("fine") Affect: Blunted, Other (guarded) Memory Intact: Comment (no gross deficits) Hallucinations: Other (no AVH) Delusions: Yes Delusion Type: Paranoid (present) Suicidal: Ideation (no SI) Homicidal: Ideation (no HI) Insight/Judgment Poor Vitals/IOs Vital Signs Date Time Temp Pulse Resp B/P (MAP) Pulse Ox O2 Delivery O2 Flow Rate FiO2 11/13/16 04:43 97.8 56 18 126/73 (90) 97 Assessment & Plan Problem List: (1) Paranoid schizophrenia, chronic condition with acute exacerbation ICD Codes: F20.0 - Paranoid schizophrenia Status: Acute Assessment & Plan Continue current treatment plan Justification for Cont. Inpt. Patient will decompensate in a less restrictive setting Request HC Surrog/Guard Advoc?: Yes Enrico Garcia DO Nov 13, 2016 11:59
[2016-11-14 06:45] VITALS: BP 121/80; PULSE 66; RESP 16; TEMP 98.9; O2SAT 96
[2016-11-14] MEDS: PRAVASTATIN SOD 10 MG TAB PO SCH (08:45)
--- NOTE | 2016-11-14 16:01 | HHI.PYPN ---
Subjective Remarks Patient seen for follow-up, chart reviewed. Patient found lying on hospital bed , calm and cooperative with interview. She states that the weekend has been "same ol, same ol". She reports continuing feeling anxious waiting for benefits to be approved. She reports not having spoken to her mother since last week. She denies SI, HI, AVH or delusions. Review of Systems Except as stated in HPI: all other systems reviewed are Neg Objective Alert: Yes [place]: Person, Place, Date Mood: Other ("fine") Affect: Restricted, Other (guarded) Memory Intact: Comment (no gross deficits) Hallucinations: Other (no AVH) Delusions: No Delusion Type: Other Suicidal: Ideation (no SI) Homicidal: Ideation (no HI) Insight/Judgment limited insight, fair impulse control, limited judgment Vitals/IOs Vital Signs Date Time Temp Pulse Resp B/P (MAP) Pulse Ox O2 Delivery O2 Flow Rate FiO2 11/14/16 06:45 98.9 66 16 121/80 (94) 96 Assessment & Plan Problem List: (1) Paranoid schizophrenia, chronic condition with acute exacerbation ICD Codes: F20.0 - Paranoid schizophrenia Status: Acute Assessment & Plan Patient with no behavioral issues but noted to malodorous at times and requires encouragement to shower. Patient continues to be less participatory in activities. Continue current treatment, discharge planning in progress. Justification for Cont. Inpt. At risk for further decompensation if at lower level of care. Request HC Surrog/Guard Advoc?: Yes Rah Mistry MD Nov 14, 2016 16:00
[2016-11-14 18:02] VITALS: BP 102/50; PULSE 60; RESP 17; TEMP 98; O2SAT 96
[2016-11-15 06:25] VITALS: BP 98/65; PULSE 66; RESP 20; TEMP 98.1; O2SAT 97
[2016-11-15] MEDS: PRAVASTATIN SOD 10 MG TAB PO SCH (09:00)
--- NOTE | 2016-11-15 16:12 | HHI.PYPN ---
Subjective Remarks Patient seen for follow-up, chart reviewed. Patient found lying on hospital bed , noted to be somewhat apprehensive. Patient was advised of the transfer date to [facility] which she becuase more anxious but assured that the [facility] has more resources. She continues to deny any AH, SI, or HI. Review of Systems Except as stated in HPI: all other systems reviewed are Neg Objective Alert: Yes [place]: Person, Place, Date Mood: Other ("fine") Affect: Restricted, Other (guarded) Memory Intact: Comment (no gross deficits) Hallucinations: Other (no AVH) Delusions: No Delusion Type: Other Suicidal: Ideation (no SI) Homicidal: Ideation (no HI) Insight/Judgment limited insight, impulse control and judgement Vitals/IOs Vital Signs Date Time Temp Pulse Resp B/P (MAP) Pulse Ox O2 Delivery O2 Flow Rate FiO2 11/15/16 06:25 98.1 66 20 98/65 (76) 97 Intake and Output 11/15/16 11/15/16 11/16/16 08:00 16:00 00:00 Intake Total 240 ml Balance 240 ml Assessment & Plan Problem List: (1) Paranoid schizophrenia, chronic condition with acute exacerbation ICD Codes: F20.0 - Paranoid schizophrenia Status: Acute Assessment & Plan Contineue current treatment, transfer to [facility] will be on 11/24/16. Discharge planning in progress. Justification for Cont. Inpt. At risk for further decompensation if at lower level of care. Request HC Surrog/Guard Advoc?: Yes Rah Mistry MD Nov 15, 2016 16:12
[2016-11-15 18:16] VITALS: BP 109/66; PULSE 57; RESP 18; TEMP 98; O2SAT 96
[2016-11-16 05:48] VITALS: BP 113/70; PULSE 58; RESP 18; TEMP 98.1; O2SAT 92
[2016-11-16] MEDS: PRAVASTATIN SOD 10 MG TAB PO SCH (08:50)
--- NOTE | 2016-11-16 15:35 | HHI.PYPN ---
Subjective Remarks Patient seen for follow-up, chart review. Patient found lying in hospital bed. Malodorous. Patient states that she has been feeling "fine" noted to be guarded and less engaging in interview. Patient states that she is going to groups and maintaining her hygiene other reported otherwise by staff. Patient continues to feel anxious about the possibility of her upcoming transfer to [facility]. Patient states that she has been medicating with her mother which her mother has been attempting to arrange for living arrangements as well as applications for benefits of in [place]. At this time patient denies any perceptual disturbances, SI or HI. Chief Complaint: psychosis with perceptual disturbances and delusions Review of Systems Except as stated in HPI: all other systems reviewed are Neg Mental Status Examination Consciousness: Alert Appearance: Inappropriate (disheveled and malodorous) Speech: Unremarkable Orientation: x3 Memory: Unremarkable Thought Content: Paranoid Thought Associations: Other (none) Language: Other (fluid and spontaneous) Fund of Knowledge: Average Hallucination Type: None Attention and Concentration: Good Suicidal Ideation: No Previous Suicide Attempts: No Homicidal Ideation: No Previous Homicide Attempts: No Insight: Poor Judgment: Poor Affect: Blunt Mood: Anxious, Irritable Motor Activity: Normal gait (ambulates with walker) Results Vitals/IOs Vital Signs Date Time Temp Pulse Resp B/P (MAP) Pulse Ox O2 Delivery O2 Flow Rate FiO2 11/16/16 05:48 98.1 58 18 113/70 (84) 92 Assessment & Plan Problem List: (1) Paranoid schizophrenia, chronic condition with acute exacerbation ICD Codes: F20.0 - Paranoid schizophrenia Status: Acute Assessment & Plan Patient this time continues to be noted to be very anxious due to upcoming transfer to [facility] (11/24/2016). Patient noted with poor hygiene and malodorous. Continue current treatment, and continue to encourage maintenance of hygiene and participation in groups and activities while on the unit. Discharge planning in progress Justification for Cont. Inpt. At risk for further decompensation if at lower level of care Request HC Surrog/Guard Advoc?: Yes Rah Mistry MD Nov 16, 2016 15:35
[2016-11-16 17:07] VITALS: BP 112/62; PULSE 60; RESP 18; TEMP 98.9; O2SAT 96
[2016-11-17] MEDS: LORazepam 1 MG TAB PO PRN (01:32)
[2016-11-17 06:19] VITALS: BP 122/82; PULSE 61; RESP 17; TEMP 98
[2016-11-17] MEDS: PRAVASTATIN SOD 10 MG TAB PO SCH (10:12)
[2016-11-17 16:00] LABS: BLOOD, URINE MOD (NEG); COMMENT (UR) CULT NOT INDICATED; CULTURE IF INDICATED CULT NOT INDICATED; GLUCOSE,URINE NEG (NEG); KETONE, URINE NEG (NEG); MUCUS URINE FEW /lpf (OCC); NITRITE,URINE NEG (NEG); PH, URINE 5.5 (5.0-8.5); SQUAMOUS EPITHELIAL CELL URINE 3 /hpf (0-5); URINE COLOR YELLOW (YELLW/STRAW)
--- NOTE | 2016-11-17 17:17 | HHI.PYPN ---
Subjective Remarks Patient seen for follow-up, chart reviewed. Patient found lying on hospital bed , continues to be guarded. Patient noted to be malodorous and isolative more. Patient reports showering and attending groups but as per nursing report has not. Patient continues to be noted to be anxious about upcoming transfer to [facility]. Chief Complaint: psychosis with perceptual disturbances and delusions Review of Systems Except as stated in HPI: all other systems reviewed are Neg Mental Status Examination Appearance: Malodorous Consciousness: Alert Orientation: x4 Motor Activity: Normal gait (ambulates with walker) Speech: Unremarkable Language: Adequate Fund of Knowledge: Adequate Attention and Concentration: Adequate Memory: Unremarkable Mood: Anxious Affect: Other (guarded) Thought Process & Associations: Linear Thought Content: Appropriate Hallucination Type: None Delusion Type: Paranoid Suicidal Ideation: No Suicidal Plan: No Suicidal Intention: No Homicidal Ideation: No Homicidal Plan: No Homicidal Intention: No Insight: Poor Judgment: Poor Results Labs labs reviewed Test 11/17/16 15:45 Urine Color YELLOW Urine Turbidity HAZY Urine pH 5.5 Urine Specific [place] 1.022 Urine Protein TRACE mg/dL Urine Glucose (UA) NEG mg/dL Urine Ketones NEG mg/dL Urine Occult Blood MOD Urine Nitrite NEG Urine Bilirubin NEG Urine Urobilinogen LESS THAN 2.0 MG/DL Urine Leukocyte Esterase SMALL Urine RBC 2 /hpf Urine WBC 1 /hpf Urine Squamous Epithelial Cells 3 /hpf Urine Amorphous Sediment RARE Urine Mucus FEW /lpf Microscopic Urinalysis Comment CULT NOT INDICATED Vitals/IOs Vital Signs Date Time Temp Pulse Resp B/P (MAP) Pulse Ox O2 Delivery O2 Flow Rate FiO2 11/17/16 06:19 98.0 61 17 122/82 (95) 11/16/16 17:07 96 Assessment & Plan Problem List: (1) Paranoid schizophrenia, chronic condition with acute exacerbation ICD Codes: F20.0 - Paranoid schizophrenia Status: Acute Assessment & Plan Continue current treatment. Patient for transfer to [facility] on 11/24/16. Justification for Cont. Inpt. At risk for further decompensation if at lower level of care. Request HC Surrog/Guard Advoc?: Yes Rah Mistry MD Nov 17, 2016 17:17
[2016-11-17 18:37] VITALS: BP 98/53; PULSE 60; RESP 18; TEMP 98.2; O2SAT 94
[2016-11-17 19:43] LABS: AUTOMATED NEUTROPHIL # 5.2 TH/MM3 (1.8-7.7); BASOPHIL % 0.4 % (0.0-2.0); EOSINOPHIL # 0.3 TH/MM3 (0-0.4); HEMATOCRIT 42.2 % (35.0-46.0); HEMO FLAGS DIFF FINAL; LYMPH % 34.5 % (9.0-44.0); LYMPHOCYTE # 3.2 TH/MM3 (1.0-4.8); MEAN CELL VOLUME 85.2 FL (80.0-100.0); MEAN CORPUSCULAR HEMOGLOBIN 28.5 PG (27.0-34.0); MEAN CORPUSCULAR HGB CONC 33.4 % (32.0-36.0); MONO % 6.7 % (0.0-8.0); NEUT % 55.4 % (16.0-70.0); PLATELET COUNT 281 TH/MM3 (150-450); RED BLOOD COUNT 4.95 MIL/MM3 (4.00-5.30); RED CELL DISTRIBUTION WIDTH 15.2 % (11.6-17.2); WHITE BLOOD COUNT 9.4 TH/MM3 (4.0-11.0)
[2016-11-18 05:48] VITALS: BP 116/72; PULSE 54; RESP 16; TEMP 98; O2SAT 96
[2016-11-18] MEDS: PRAVASTATIN SOD 10 MG TAB PO SCH (08:09)
--- NOTE | 2016-11-18 16:56 | HHI.PYPN ---
Subjective Remarks Patient seen for follow-up, chart reviewed. Patient found sitting in activities room during ice cream social. Patient states that she is feeling "fine" denies any physical complaints. Reports feeing more anxious as the date for transfer is approaching but what to expect was discussed with patient. She was encouraged to continue treatment and adhere to recommendations which she acknowledged. She states having spoken to her mother earlier today. Sports Marketing Specialist spoke with patient's mother, Nury Hernandez (mother) which discussion of patient's prognosis, upcoming transfer and progress was discussed. Chief Complaint: psychosis with perceptual disturbances and delusions Review of Systems Except as stated in HPI: all other systems reviewed are Neg Mental Status Examination Appearance: Disheveled, Malodorous Consciousness: Alert Orientation: x4 Motor Activity: Normal gait (ambulates with walker) Speech: Unremarkable Language: Adequate Fund of Knowledge: Adequate Attention and Concentration: Adequate Memory: Unremarkable Mood: Anxious Affect: Other (guarded) Thought Process & Associations: Linear Thought Content: Appropriate Hallucination Type: None Delusion Type: Paranoid Suicidal Ideation: No Suicidal Plan: No Suicidal Intention: No Homicidal Ideation: No Homicidal Plan: No Homicidal Intention: No Insight: Poor Judgment: Poor Results Labs Test 11/17/16 18:42 White Blood Count 9.4 TH/MM3 Red Blood Count 4.95 MIL/MM3 Hemoglobin 14.1 GM/DL Hematocrit 42.2 % Mean Corpuscular Volume 85.2 FL Mean Corpuscular Hemoglobin 28.5 PG Mean Corpuscular Hemoglobin Concent 33.4 % Red Cell Distribution Width 15.2 % Platelet Count 281 TH/MM3 Mean Platelet Volume 8.1 FL Neutrophils (%) (Auto) 55.4 % Lymphocytes (%) (Auto) 34.5 % Monocytes (%) (Auto) 6.7 % Eosinophils (%) (Auto) 3.0 % Basophils (%) (Auto) 0.4 % Neutrophils # (Auto) 5.2 TH/MM3 Lymphocytes # (Auto) 3.2 TH/MM3 Monocytes # (Auto) 0.6 TH/MM3 Eosinophils # (Auto) 0.3 TH/MM3 Basophils # (Auto) 0.0 TH/MM3 CBC Comment DIFF FINAL Differential Comment Blood Urea Nitrogen 16 MG/DL Creatinine 0.88 MG/DL Random Glucose 95 MG/DL Calcium Level 8.9 MG/DL Sodium Level 136 MEQ/L Potassium Level 4.0 MEQ/L Chloride Level 103 MEQ/L Carbon Dioxide Level 25.0 MEQ/L Anion Gap 8 MEQ/L Estimat Glomerular Filtration Rate 68 ML/MIN Vitals/IOs Vital Signs Date Time Temp Pulse Resp B/P (MAP) Pulse Ox O2 Delivery O2 Flow Rate FiO2 11/18/16 05:48 98.0 54 16 116/72 (87) 96 Assessment & Plan Problem List: (1) Paranoid schizophrenia, chronic condition with acute exacerbation ICD Codes: F20.0 - Paranoid schizophrenia Status: Acute Assessment & Plan Patient continues to be anxious about upcoming transfer to [facility] . Continue treatment. Continue to encourage patient to improve on hygiene and participation in groups and activities. Discharge planning in progress. Justification for Cont. Inpt. At risk for further decompensation if at lower level of care. Discharge Planning Patient will be transferred to [facility] on 11/24/16 Request HC Surrog/Guard Advoc?: Yes Rah Mistry MD Nov 18, 2016 16:56
[2016-11-18 18:00] VITALS: BP 122/72; PULSE 71; RESP 18; TEMP 98.2; O2SAT 95
[2016-11-19 06:18] VITALS: BP 115/65; PULSE 57; RESP 16; TEMP 97.7; O2SAT 96
[2016-11-19] MEDS: PRAVASTATIN SOD 10 MG TAB PO SCH (09:16)
--- NOTE | 2016-11-19 14:53 | HHI.PYPN ---
Subjective Remarks Pt seen and discussed nhht staff. Pt is only compliant with prolixin. She remains isolated to room mostly, but has come out today to dayroom. NO behaivioral problems. No SI/HI Chief Complaint: psychosis with perceptual disturbances and delusions Mental Status Examination Appearance: Disheveled, Malodorous Consciousness: Alert Orientation: x4 Motor Activity: Normal gait (ambulates with walker) Speech: Unremarkable Language: Adequate Fund of Knowledge: Adequate Attention and Concentration: Adequate Memory: Unremarkable Mood: Anxious Affect: Other (guarded) Thought Process & Associations: Linear Thought Content: Delusional (mild) Hallucination Type: None Delusion Type: Paranoid Suicidal Ideation: No Suicidal Plan: No Suicidal Intention: No Homicidal Ideation: No Homicidal Plan: No Homicidal Intention: No Insight: Poor Judgment: Poor Results Vitals/IOs Vital Signs Date Time Temp Pulse Resp B/P (MAP) Pulse Ox O2 Delivery O2 Flow Rate FiO2 11/19/16 06:18 97.7 57 16 115/65 (82) 96 Assessment & Plan Problem List: (1) Paranoid schizophrenia, chronic condition with acute exacerbation ICD Codes: F20.0 - Paranoid schizophrenia Status: Acute Assessment & Plan Continue current tx plan. Estimated LOS: days Justification for Cont. Inpt. impairments in self care and reality testing Request HC Surrog/Guard Advoc?: Yes Alicia Smith MD Nov 19, 2016 14:53
[2016-11-19 18:23] VITALS: BP 100/56; PULSE 66; RESP 18; TEMP 98.2; O2SAT 96
[2016-11-20 05:39] VITALS: BP 134/81; PULSE 53; RESP 18; TEMP 98.3
[2016-11-20] MEDS: PRAVASTATIN SOD 10 MG TAB PO SCH (09:00)
--- NOTE | 2016-11-20 13:32 | HHI.PYPN ---
Subjective Remarks Pt seen and discussed with staff. She remains malodorous and isolative to her room.She continues to refuse all medications except prolixin. She remains paranoid. She denies SI/HI Chief Complaint: psychosis with perceptual disturbances and delusions Mental Status Examination Appearance: Disheveled, Malodorous Consciousness: Alert Orientation: x4 Motor Activity: Normal gait (ambulates with walker) Speech: Unremarkable Language: Adequate Fund of Knowledge: Adequate Attention and Concentration: Adequate Memory: Unremarkable Mood: Anxious Affect: Other (guarded) Thought Process & Associations: Linear Thought Content: Delusional (mild) Hallucination Type: None Delusion Type: Paranoid Suicidal Ideation: No Suicidal Plan: No Suicidal Intention: No Homicidal Ideation: No Homicidal Plan: No Homicidal Intention: No Insight: Poor Judgment: Poor Results Vitals/IOs Vital Signs Date Time Temp Pulse Resp B/P (MAP) Pulse Ox O2 Delivery O2 Flow Rate FiO2 11/20/16 05:39 98.3 53 18 134/81 (98) 11/19/16 18:23 96 Assessment & Plan Problem List: (1) Paranoid schizophrenia, chronic condition with acute exacerbation ICD Codes: F20.0 - Paranoid schizophrenia Status: Acute Assessment & Plan Continue current tx plan. state referral. Estimated LOS: days Justification for Cont. Inpt. impairments in reality testing and self care Request HC Surrog/Guard Advoc?: Yes Alicia Smith MD Nov 20, 2016 13:32
[2016-11-20 17:01] VITALS: BP 107/58; PULSE 66; RESP 18; TEMP 98.4; O2SAT 96
[2016-11-21 06:15] VITALS: BP 98/54; PULSE 63; RESP 18; TEMP 98.7; O2SAT 97
[2016-11-21] MEDS: PRAVASTATIN SOD 10 MG TAB PO SCH (08:43)
--- NOTE | 2016-11-21 16:23 | HHI.PYPN ---
Subjective Remarks Patient seen for follow, chart review. Patient found lying in hospital bed noted to be guarded and superficially cooperative interview today. Patient states that these are going "fine" reports not having to participate in any groups over the weekend. Continues to report feeling [facility]. Patient states that she understands that it is encouraged for her to maintain her hygiene and participate in groups. Patient denies SI or HI, or any perceptual disturbances. Chief Complaint: psychosis with perceptual disturbances and delusions Review of Systems Except as stated in HPI: all other systems reviewed are Neg Mental Status Examination Appearance: Disheveled, Malodorous Consciousness: Alert Orientation: x4 Motor Activity: Normal gait (ambulates with walker) Speech: Unremarkable Language: Adequate Fund of Knowledge: Adequate Attention and Concentration: Adequate Memory: Unremarkable Mood: Anxious Affect: Other (guarded) Thought Process & Associations: Linear Thought Content: Other (anxious on having to go to [facility]) Hallucination Type: None Delusion Type: Paranoid Suicidal Ideation: No Suicidal Plan: No Suicidal Intention: No Homicidal Ideation: No Homicidal Plan: No Homicidal Intention: No Insight: Fair Judgment: Poor Results Vitals/IOs Vital Signs Date Time Temp Pulse Resp B/P (MAP) Pulse Ox O2 Delivery O2 Flow Rate FiO2 11/21/16 06:15 98.7 63 18 98/54 (69) 97 Assessment & Plan Problem List: (1) Paranoid schizophrenia, chronic condition with acute exacerbation ICD Codes: F20.0 - Paranoid schizophrenia Status: Acute Assessment & Plan Patient continues to note to be anxious, decreased participation in groups and activities and is maintaining hygiene. Continue current treatment. Patient to be discharged to [facility] on 11/24/16. Discharge planning in progress. Justification for Cont. Inpt. Patient seen for follow-up, chart reviewed. Discharge Planning Patient to be discharged to [facility] on 11/24/16. Request HC Surrog/Guard Advoc?: Yes Rah Mistry MD Nov 21, 2016 16:23
[2016-11-21 18:00] VITALS: BP 139/79; PULSE 86; RESP 16; TEMP 97.3; O2SAT 97
[2016-11-22 06:01] VITALS: BP 100/59; PULSE 63; RESP 18; TEMP 98.4; O2SAT 94
[2016-11-22] MEDS: PRAVASTATIN SOD 10 MG TAB PO SCH (09:00)
--- NOTE | 2016-11-22 13:20 | HHI.PYPN ---
Subjective Remarks Patient seen for follow-up, chart reviewed. Patient found sitting in the room, cooperative interview. Patient states that she is having some blurry vision as he stated her last dose of Atarax yesterday. She states that this has resolved and since has not requested any more of this medication. Patient receives care package from other with clothing in a card which she was very pleased abou Patient reports wanting to visit more groups today. Chief Complaint: psychosis with perceptual disturbances and delusions Review of Systems Except as stated in HPI: all other systems reviewed are Neg Mental Status Examination Appearance: Disheveled, Malodorous Consciousness: Alert Orientation: x4 Motor Activity: Normal gait (ambulates with walker) Speech: Unremarkable Language: Adequate Fund of Knowledge: Adequate Attention and Concentration: Adequate Memory: Unremarkable Mood: Appropriate Affect: Other (still guarded) Thought Process & Associations: Linear Thought Content: Other (anxious on having to go to [facility] but less so today) Hallucination Type: None Delusion Type: Paranoid Suicidal Ideation: No Suicidal Plan: No Suicidal Intention: No Homicidal Ideation: No Homicidal Plan: No Homicidal Intention: No Insight: Fair Judgment: Poor Results Vitals/IOs Vital Signs Date Time Temp Pulse Resp B/P (MAP) Pulse Ox O2 Delivery O2 Flow Rate FiO2 11/22/16 06:01 98.4 63 18 100/59 (73) 94 Assessment & Plan Problem List: (1) Paranoid schizophrenia, chronic condition with acute exacerbation ICD Codes: F20.0 - Paranoid schizophrenia Status: Acute Assessment & Plan Patient please of having receiving care practitioner her mother when she put on casual clothing. Continue current treatment. Patient aware of transfer to [facility] on 24 November. Discharge planning in progress Justification for Cont. Inpt. At risk for further decompensation if at lower level of care Discharge Planning Patient to transfer to [facility] on 11/24/16 Request HC Surrog/Guard Advoc?: Yes Rah Mistry MD Nov 22, 2016 13:20
[2016-11-22 18:51] VITALS: BP 134/74; PULSE 114; RESP 18; TEMP 98.2; O2SAT 94
[2016-11-23 05:35] VITALS: BP 132/70; PULSE 63; RESP 17; TEMP 98.4; O2SAT 98
[2016-11-23] MEDS: PRAVASTATIN SOD 10 MG TAB PO SCH (09:00)
--- NOTE | 2016-11-23 11:17 | PD.TTN ---
Patient Problems 1. Discharge planning 2. Medication compliance 3. Knowledge deficit 4. Lack of coping skills Progress Toward Goals Provider Present: Dr. Tea Mistry Provider Input: Would like for pt to get more active and out of the room with Rec Therapy Will persue state referral increased meds will look into more med adjustments Nurse(s) Input: had chest pain overnight no distress meidally allergic to red dye she states, but took meds Psych Therapist Input: vaughn start state packet and meet with FACT team will follow up on SSDI and Medicaid appl not spoken to mother, SUNNI is sales representative groceries Occupational Therapist Input: not coming to groups but will work towards getting out more for fresh air Documentation Scribe: YURY Brown Date Resolved: Nov 02, 2016 Nahomy Andres Nov 23, 2016 11:16
--- NOTE | 2016-11-23 11:20 | PD.TTN ---
Patient Problems 1. Discharge planning 2. Medication compliance 3. Knowledge deficit 4. Lack of coping skills Progress Toward Goals Provider Present: Dr. Tea Mistry Provider Input: Patient will be discharged to [facility] tomorrow. Psychiatric Counselors Present: YURY Brown Psych Therapist Input: Patient will be discharged to [facility] tomorrow. Occupational Therapist Input: Shelton reported the patient attends rec therapy and her behavior is appropriate. Documentation Scribe: YURY Brown Date Resolved: Nov 23, 2016 Nahomy Andres Nov 23, 2016 11:20
--- NOTE | 2016-11-23 15:36 | HHI.PYPN ---
Subjective Remarks Patient seen for follow-up, chart reviewed. Patient found lying in hospital bed , cooperative interview today. Patient noted to be slightly paranoid about her medications due to there were "different color". Patient assured that there have been no changes which she then agreed to continue treatment. Patient [facility] and currently feeling slightly anxious but states that she continues to plan on hoping to get her benefits approved soon so that when she may be discharged to an assisted living facility from there. Chief Complaint: psychosis with perceptual disturbances and delusions Review of Systems Except as stated in HPI: all other systems reviewed are Neg Mental Status Examination Appearance: Disheveled, Malodorous (less so today) Consciousness: Alert Orientation: x4 Motor Activity: Normal gait (ambulates with walker) Speech: Unremarkable Language: Adequate Fund of Knowledge: Adequate Attention and Concentration: Adequate Memory: Unremarkable Mood: Appropriate Affect: Other (still guarded) Thought Process & Associations: Linear Thought Content: Other (worried about [facility]) Hallucination Type: None Delusion Type: Paranoid Suicidal Ideation: No Suicidal Plan: No Suicidal Intention: No Homicidal Ideation: No Homicidal Plan: No Homicidal Intention: No Insight: Fair Judgment: Poor Results Vitals/IOs Vital Signs Date Time Temp Pulse Resp B/P (MAP) Pulse Ox O2 Delivery O2 Flow Rate FiO2 11/23/16 05:35 98.4 63 17 132/70 (90) 98 Assessment & Plan Problem List: (1) Paranoid schizophrenia, chronic condition with acute exacerbation ICD Codes: F20.0 - Paranoid schizophrenia Status: Acute Assessment & Plan Patient continues to hear to current psychiatric treatment the continues to refuse medical treatment as recommended by primary medical team. Patient to continue current treatment. [facility] Justification for Cont. Inpt. At risk for further decompensation if at lower level of care Discharge Planning Patient to be discharged to [facility] tomorrow. Request HC Surrog/Guard Advoc?: Yes Rah Mistry MD Nov 23, 2016 15:36
[2016-11-23 18:00] VITALS: BP 145/96; PULSE 71; RESP 18; TEMP 98.6; O2SAT 95
[2016-11-23] MEDS: LORazepam 1 MG TAB PO PRN (21:40)
[2016-11-24 05:43] VITALS: BP 107/61; PULSE 62; RESP 16; TEMP 97.7; O2SAT 95
--- NOTE | 2016-11-24 16:51 | HHI.DS ---
Psychiatry Discharge Summary Inpatient Psychiatric care?: Yes Advance Directive: No Reason Not Provided: Due to Patient Condition Mental Health AdvanceDirective: No Health Care Proxy: Yes Admission Admission Date Sep 08, 2016 at 23:00 Admission Diagnosis: (1) Paranoid schizophrenia, chronic condition with acute exacerbation ICD Code: F20.0 - Paranoid schizophrenia Brief History Pt was seen and discussed with staff. Chart reviewed. Pt is a 50 YOWF with a hx of schizophrenia who was admitted to [facility] on a BA secondary to psychosis. Staff report that pt reported that she is 14 years old and her names is "Ms. Weston." She told RN that she was related to the sand worker of [facility] who is called "[facility]." When approached for interview, pt informs this MD that she has a cell -phone implanted in her ear that allows her to talk to "Dr. Quijano" who is standing outside of psychiatric unit. She states that she does not require " your services" and that all questions need to be directed through Dr. Quijano. Staff report that pt has been defecating and urinating repeatedly in her bed. She has been uncooperative staff but was compliant with medications. Tobacco Use In Past 30 Days: No Tobacco Past 30 Days Alcohol Use: Never Hospital Course Patient is a 50-year-old woman, homeless, with a past psychiatric history of schizophrenia, multiple psychiatric hospitalizations, no prior suicide attempts or self-injurious behavior, history of medication noncompliance , past medical history of pulmonary embolism treated on 06/08 but had refused to continue anticoagulant therapy, was previously admitted under the name of Evan Masters, the patients real name is Celio Krause. Patient was discharged from the medical unit on 09/08/2016 and transferred to the inpatient psychiatry unit for further psychiatric evaluation and stabilization as patient was noted to be acutely psychotic. Patient was started on fluphenazine 5mg PO BID and titrated up to 20mg PO BID. Patient also recommended anticoagulant therapy due to previous pulmonary embolism as well as proamatine for orthostatic hypotension which she had refused up to the day of discharge. Patient during admission had reported leg weakness and inability to walk which was partly linked to her psychosis but as well as deconditioning from immobility. Patient began to respond to antipsychotic treatment, began to become more ambulatory with physical therapy and delusions began to lessen. Patient began to participate in groups and activities and improve on hygiene. Patient continued to be guarded, paranoid and toward end of admission prior to transfer to [facility] began to regress somewhat with less hygiene maintenance, more isolation, less participation in groups and activities and continued with paranoia. Patient had application for benefits started by treatment team and was accepted to a [facility] ( [facility]) if psychiatrically discharged but had no benefits approved as of yet and pending. Patient was transferred to [facility] without incident. Results Blood Pressure 107 / 61 Vital Signs Date Time Temp Pulse Resp B/P (MAP) Pulse Ox O2 Delivery O2 Flow Rate FiO2 11/24/16 05:43 97.7 62 16 107/61 (76) 95 Laboratory Results Test 09/14/16 09:12 Cholesterol Level 226 MG/DL (120-200) HDL Cholesterol 44.9 MG/DL (40.0-60.0) Hemoglobin A1c 5.4 % (4.3-6.0) LDL Cholesterol 150 MG/DL (0-99) Triglycerides Level 158 MG/DL (42-150) Summary of Procedures MRI lumbar spine: mild bilateral foraminal at L4-L5 and minimal bilateral foraminal narrowing at L5-S1. Degenerative disease at L4-5 and L5-S1. Imaging Last Impressions Lumbar Spine MRI 09/27/16 0000 Signed Impressions: Service Date/Time: Tuesday, September 27, 2016 13:30 - CONCLUSION: 1. Mild bilateral foraminal at L4-5 and minimal bilateral foraminal narrowing at L5- S1. 2. Degenerative disease at L4-5 and L5-S1. Juve Ocampo MD Pending results at discharge: No Medications # of Antipsychotic meds at D/C: 1 Approp Antipsych med options 1 - Minimum of three failed multiple trials of monotherapy. 2 - Documented plan to taper to monotherapy due to previous use of multiple meds OR cross-taper in progress at D/C. 3 - Documentation of augmentation of Clozapine. 4 - Justification other than those listed in allowable values 1-3, document here : Discharge Discharge Date: Nov 24, 2016 Discharge Diagnosis: (1) Paranoid schizophrenia, chronic condition with acute exacerbation ICD Code: F20.0 - Paranoid schizophrenia Status: Acute Pt Condition on Discharge: Stable Discharge Disposition: Disch to Another Hospital Discharge Instructions Diet Instructions: Heart Healthy Diet Activities you can perform: Regular-No Restrictions Discharge Time > 30 minutes Mental Status Examination Appearance: Disheveled Consciousness: Alert Orientation: x4 Motor Activity: Normal gait (ambulates with walker) Speech: Unremarkable Language: Adequate Fund of Knowledge: Adequate Attention and Concentration: Adequate Memory: Unremarkable Mood: Appropriate Affect: Other (still guarded) Thought Process & Associations: Linear Thought Content: Other (worried about [facility]) Hallucination Type: None Delusion Type: Paranoid Suicidal Ideation: No Suicidal Plan: No Suicidal Intention: No Homicidal Ideation: No Homicidal Plan: No Homicidal Intention: No Insight: Fair Judgment: Poor Discharge/Advance Care Plan Health Problems: (1) Paranoid schizophrenia, chronic condition with acute exacerbation Goals to promote your health * To prevent worsening of your condition and complications * To maintain your health at the optimal level Directions to meet your goals Take your medications as prescribed Follow your dietary instruction Follow activity as directed Keep your appointments as scheduled Take your immunizations and boosters as scheduled If your symptoms worsen call your PCP, if no PCP go to Urgent Care Center or Emergency Room For 05/09 questions related to your inpatient stay or results of tests pending at discharge, please contact Dr. Rah Mistry at Smoking is Dangerous to Your Health. Avoid second hand smoking Rah Mistry MD Nov 24, 2016 16:51
== END 2016-11-24 07:45 | DRG 885 ==
LOC: H260 23:00 → H250 09-11 12:25 → H260 10-13 17:19
PROVIDERS: ADMIT Student in an Organized Health Care Education/Training Program; ATTEND Student in an Organized Health Care Education/Training Program
DX: F20.0 Paranoid schizophrenia (principal); I95.9 Hypotension, unspecified; Z59.0 Homelessness; Z91.14 Patient's other noncompliance with medication regimen; F41.8 Other specified anxiety disorders; E66.9 Obesity, unspecified; M62.81 Muscle weakness (generalized); F45.8 Other somatoform disorders; E78.5 Hyperlipidemia, unspecified; R06.02 Shortness of breath; M47.816 Spondylosis without myelopathy or radiculopathy, lumbar region; R07.1 Chest pain on breathing; F94.0 Selective mutism; M48.061 Spinal stenosis, lumbar region without neurogenic claudication; T43.3X5A Adverse effect of phenothiazine antipsychotics and neuroleptics, initial encounter; Y92.239 Unspecified place in hospital as the place of occurrence of the external cause; Z86.711 Personal history of pulmonary embolism; Z87.891 Personal history of nicotine dependence
CPT/HCPCS: 72148; 76937; 80048; 80053; 80061; 81001; 82550; 82607; 83036; 83735; 84100; 84439; 84443; 85025; 93005; Q0163